=== PATIENT | male | born 1935 | race Caucasian/White ===

== ENCOUNTER → 2017-09-16 12:58 | Outpatient (CLI) | payer MEDICARE, SELFPAY ==
--- NOTE | 2017-09-16 13:02 | PCM.CR.ITP ---
Exercise - Initial Assessment - Visit Date of Eval: 09/16/17 - initial - Stages of Change Stages of Change:: Contemplate - Exercise Prescription Mode:: Treadmill, Biodyne, Rower, Airdyne, NuStep, Arm Ergometer Angina with exercise?: No - Hypertension Do any of the following apply?: Yes Resting Blood Pressure:: 152/90 - Intervention Home Exercise/Activity Goal:: Sitting Time <3 hrs/day - Education Goals:: Warm-up, RPE RUBEN Scale, S/S, Safe Exercise, Self-Monitoring - Exercise Program Goals Exercise Program Goals: Aerobic Activity >30 min, B/P <140/90 Nutrition - Initial Assessment - Program Goals Nutrition Program Goals: LDL <70. Total Cholesterol <200. HDL >45. Triglycerides <150. HgbA1C <7%. BMI <25 - Visit Date of Assessment:: 09/16/17 - Stages of Change Stages of Change:: Contemplate - Diabetes Diabetes:: No - Weight Management Height: 1.75 m Weight:: 83.461 kg Total Score:: 3 - Intervention Referral to dietitian:: No Referral to Diabetic Clinic:: No Will attend diet classes:: Yes - Education Gave educational materials for:: Signs & symptoms of hypoglycemia, Signs & symptoms of hyperglycemia, Relate diabetes to coronary artery disease, Healthy eating Nutrition - 30-Day Assessment - Program Goals Nutrition Program Goals: LDL <70. Total Cholesterol <200. HDL >45. Triglycerides <150. HgbA1C <7%. BMI <25 - Diabetes Diabetes:: No Nutrition - 60-Day Assessment - Program Goals Nutrition Program Goals: LDL <70. Total Cholesterol <200. HDL >45. Triglycerides <150. HgbA1C <7%. BMI <25 - Diabetes Diabetes:: No Nutrition - 90-Day Assessment - Program Goals Nutrition Program Goals: LDL <70. Total Cholesterol <200. HDL >45. Triglycerides <150. HgbA1C <7%. BMI <25 - Diabetes Diabetes:: No Nutrition - Final Assessment - Program Goals Nutrition Program Goals: LDL <70. Total Cholesterol <200. HDL >45. Triglycerides <150. HgbA1C <7%. BMI <25 - Diabetes Diabetes:: No Tobacco - Initial Assessment - Program Goals Tobacco Program Goals: Complete smoking cessation. Attend education classes. Improve Knowledge Test score - Stage of Change Stages of Change:: Contemplate - Learning Barriers Total Score:: 9 - Family Support Do you have family support?: Yes - Tobacco Use Tobacco Use: Non-smoker How long ago did you quit using tobacco products?: Greater than or equal to 6 months ago Do you use smokeless tobacco?: No - Intervention Smoking Cessation Referral:: No Individual Education/Counseling:: No Education Schedule Given:: Yes - Education Gave educational material for:: Tobacco triggers, Coronary artery disease, Risk factors, Sexuality, Medical compliance, Cardiac A&P, Angina signs & symptoms Psychosocial - Initial Assess - Target Goals Target Goals: Assess presence or absence of depression. Using a valid screening tool, maximizes coping skills. Positive support system - Stages of Change Stages of Change:: Contemplate - Psychosocial Test Tool Used:: HANDS Depression Questionnaire Self-reported stress:: none Total Mood Screening Score:: 0 Self-Efficacy Score:: 10 - Intervention PS - Interventions: Yes Attend Stress Management Classes, Yes Uses Stress Management Skills, No Referral to Mental Health, No Referral to [facility] Case Management, No Referral to Physician - Education Gave educational materials for:: Coping techniques, Signs & symptoms of depression, Stress management, Relaxation techniques - Assistive Devices Assistive Devices:: None Patient Health Questionnaire 30-Day Re-eval Assessment 1. Little interest or pleasure in doing things: Not at all 2. Feeling down, depressed, or hopeless: Not at all 3. Trouble falling or staying asleep, or sleeping too much: Not at all 4. Feeling tired or having little energy: Not at all 5. Poor appetite or overeating: Not at all 6. Feeling bad about yourself -- or that you are a failure or have let yourself or your family down: Not at all 7. Trouble concentrating on things, such as reading the newspaper or watching television: Not at all 8. Moving or speaking so slowly that other people could have noticed. Or the opposite - being so fidgety or restless that you have been moving around a lot more than usual: Not at all 9. Thoughts that you would be better off , or of hurting yourself in some way: Not at all How difficult have these problems made it for you to do your work, take care of things at home, or get along with other people?: Not difficult at all Total Score: 0 Knowledge Test - Check your knowledge Initial The #1 cause of in the [place] each year is:: Heart disease Which of the following is a common treatment for heart disease?: All of the above The arteries that feed the heart are called:: Coronary arteries HDL cholesterol is known as the good cholesterol.: True What disease increases your risk for heart disease?: Diabetes What food product raises blood cholesterol level the most?: Saturated fat The bad cholesterol in the blood is called:: LDL Hypertension is another word for:: High blood pressure A blood pressure reading of 148/88 is considered normal.: False Exercise will only benefit your health when your heart rate reaches a target level.: True Total Score:: 9 Self-Efficacy 30-Day Re-eval Assessment We would like to know how confident you are in doing certain activities. Please select your confidence level for:: Select your confidence level for the following using the scale 1-10 where 1 is not at all confident and 10 is totally confident. Your score is the average of all 6 responses. Fatigue: How confident are you that you can keep the fatigue caused by your disease from interfering with the things you want to do? Select Number: 10 Physical Discomfort or Pain: How confident are you that you can keep the physical discomfort or pain of your disease from interfering with the things you want to do? Select Number: 10 Emotional Distress: How confident are you that you can keep the emotional distress caused by your disease from interfering with the things you want to do? Select Number: 10 Other Symptoms or Health Problems: How confident are you that you can keep other symptoms or health problems from interfering with the things you want to do? Select Number: 10 Different Tasks and Activities: How confident are you that you can do the different tasks and activities needed to manage your health condition so as to reduce your need to see a doctor? Select Number: 10 Medication: How confident are you that you can do things other than just taking medication to reduce how much your illness affects your everyday life? Select Number: 10 Total Score:: 10 Nutrition Survey - Nutrition Survey Instructions Scoring Instructions: Scoring is as follows: Yes = 1 points. No = 0 point. Patient score that is >/=12 is considered to be at potential nutritional risk and could benefit from a referral to a registered dietitian. - Nutrition Survey Initial Have you lost >10 lbs over the past 2 months without trying?: Yes Are you following a special diet at home for diabetes, low fat, or low salt?: Yes Are you interested in meeting with a dietitian for help understanding your diet?: Yes Do you eat less than 3 meals a day?: No Do you eat fatty meats (saeed, sausage, ribs, etc), fried foods, desserts, large amounts of salad dressings, margarine, butter, or cheese most days?: No Do you have food allergies? [Enter types in comment field]: No Do you eat in restaurants more than 3 times a week?: No Do you season food with salt, seasoning salt, or garlic salt?: No Do you used canned, boxed, frozen meals, or soups, seasoning packets?: No Total Score:: 3 Cardiac Rehabilitation Goals - Cardiac Rehab Goals Cardiac Rehabilitation Goals: 1. Maintain the individual as the primary focus of care. 2. To improve the patient's quality of life. 3. Identification of cardiac risk factors and provide cardiac risk factor management. 4. Enhance the psychosocial status of the patient. 5. Reconditioning enough to allow the patient to resume customary activities. 6. Control symptoms of cardiac disease - Scale Scale for measuring improvement of personal goals: Enter appropriate number in Comments. 2 = Unchanged. 3 = Slightly Better. 4 = Moderate Improvement. 5 = Met my Goal 30-Day Re-eval Assessment Personal Goals: 30-day Re-assessment: Improve management of stress and emotions, Improve energy level, Participate in home exercise program, Get back to work, or to resume activities faster, Improve knowledge of cardiac disease, Improve muscle strength and endurance, Improve diet and eating habits (eat healthier), Control risk factors (learn risk factor modification)
--- NOTE | 2017-09-16 13:03 | PCM.CR.HP2 ---
CR - History & Physical - General Arrival date:: 09/16/17 Arrival time:: 13:03 Referring Physician: Dr. Jose Ibarra Primary Diagnosis: Z95.5, I25.10 07/04/2017, 08/01/2017 - History of Present Cardiac Event Onset Date: Enter Onset Date of cardiac illnesses in Comment field below PTCA:: Yes Pacemaker/ICD: Yes Type of Symptoms:: SOB - Medications Home Medications: Ambulatory Orders Medication Instructions Recorded Aspirin [Aspirin, Baby] 81 mg PO DAILY@0800 06/30/17 Cholecalciferol (Vitamin D3) 2,000 unit PO DAILY 06/30/17 [Vitamin D3] Multivitamin,Therapeutic [Thera] 1 ea PO DAILY 06/30/17 meloxicam 7.5 mg tablet 7.5 mg PO QDAY 07/09/17 nitroglycerin 0.4 mg sublingual 0.4 mg SUBLINGUAL Q5-15M PRN 07/09/17 tablet Handicap Plaquard #1 ea 07/10/17 Handicap Plaquard #1 ea 07/10/17 clopidogrel 75 mg tablet 75 mg PO QDAY #30 tab 07/12/17 folic acid 1 mg tablet 1 mg PO QDAY #30 tab 07/12/17 losartan 50 mg tablet 50 mg PO QDAY #30 tab 07/12/17 metoprolol succinate ER 50 mg 150 mg PO QDAY #90 tab 07/12/17 tablet,extended release 24 hr - Allergies Allergies/Adverse Reactions: Allergies quinapril Allergy (Verified 09/05/17 10:45) Angioedema Suoaixp-Sub-Pgb Reductase Inhibitor Allergy (Verified 09/05/17 10:45) Hives and myalgias - Sleep Disorder Evaluation Hx of Sleep Apnea: No Do you snore loudly (louder than talking or can be heard through closed doors)?: Yes - declines for now Do you often feel tired/ fatigued/ sleepy during daytime?: No Has anyone observed you stop breathing during sleep?: No History of Hypertension (for STOP score): Yes STOP Results: Positive Advanced Directives - Advanced Directives Power of Unattended Ground Sensor Specialist: Yes Living Will: Yes Advance Directives Information Provided: Yes Advance Directives on File: No DNR Order?:: No Past Medical History - Problems and Co-Morbidities Problems & Co-Morbidities: Smoking - reformed, Dyslipidemia, Hypertension - Past Cardiac Illness Past Cardiac Illness: Myocardial Infarction - Cardiology Procedures/Interventions Cardiology Procedures/Interventions: Angioplasty, PCI w/Stenting, Other Procedures - ICD placement - Past Surgical History Surgical History: - - Carpal tunnel surgery. Shoulder and knee arthroscopic surgery. Review of Systems - Review of Systems Hints: Right click = Denies (Slash). Left click = Reports ([place]) Review of Present Symptoms: Reports: Shortness of Breath at Rest, Shortness of Breath with Exertion, Appetite - Normal, Sleep - Normal. Denies: PVD, Operative Discomfort, Angina, Wound Healing, Dizziness/Lightheadedness, Fatigue, Heart Arrhythmia/Irregularities, Appetite - Special Diet, Sexual Changes Risk Factor Assessment - Chief Complaint Chief Complaint: SOB - Pulse Pulse Rate: 68 - 97% SPO2 Pulse Rhythm: Regular - Hypertension How long have you been treated?: 20 Blood Pressure Sitting - Left Arm: 152/90 - Diabetes Nutrition Referral for Diabetes: No - Obesity Height: 1.75 m Weight:: 83.461 kg Weight in Pounds: 184.0 lbs Body Mass Index (BMI): 27.1 Nutritional Referral for Obesity: No - Risk Stratification Risk Guidelines: Lowest Risk: Risk Factor for Sedentary Lifestyle, Risk Factor for Depression, Moderate Risk: Risk Factor for Smoking, Risk Factor for Dyslipidemia, Risk Factor for Diabetes, Risk Factor for Obesity, Risk Factor for Hypertension - For Smoking Smoking Risk Guidelines: Smoking Low Risk: None or quit greater than 6 months ago. Smoking Moderate Risk: Smoker or quit 6 months or less ago. Smoking High Risk: Smoker - For Dyslipidemia Dyslipidemia Risk Guidelines: Low Risk: Moderate Risk: High Risk: 15-25% fat 25.1-29% fat >/= 30% fat. <7% sat fat 7-9% sat fat >9% sat fat. <150 mg chol 150-299 mg chol >/= 300 mg chol. LDL <100 LDL 100-129 LDL >/= 130. Chol/HDL ratio <5.0 Chol/HDL ratio 5.0-6.0 Chol/HDL ratio >6.0. Triglycerides <100 Triglycerides 100-149 Triglycerides >/= 150 - For Diabetes Mellitus Diabetes Risk Guidelines: Diabetes Low Risk: HgA1c <6.5% and/or FBG <120. Diabetes Moderate Risk: HgA1c 6.6-7.9% and/or FBG 120-180. Diabetes High Risk: HgA1c >/= 8% and/or FBG >180 - For Obesity/Overweight Obesity/Overweight Risk Guidelines: Obesity Low Risk: BMI <25.0. Obesity Moderate Risk: BMI 25-29.9. Obesity High Risk: BMI >/= 30.0 - For Hypertension Hypertension Risk Guidelines: Hypertension Low Risk: Systolic <120 and Diastolic <80. Hypertension Moderate Risk: Systolic 120-139 and Diastolic 80-89. Hypertension High Risk: Systolic >/= 140 and Diastolic >/= 90 - For Sedentary Lifestyle Sedentary Lifestyle Risk Guidelines: Sedentary Lifestyle Low Risk: >/= 1,500 kcal/week. Sedentary Lifestyle Moderate Risk: 700-1,499 kcal/week. Sedentary Lifestyle High Risk: < 700 kcal/week - For Depression Depression Risk Guidelines: Depression Low Risk: Not clinically depressed. Depression Moderate Risk: Mildly depressed. Depression High Risk: Clinically depressed Social History - Smoking History Smoking Status: Former smoker Years Smokin Packs Smoked per Day: 1 Hx Smoking Cessation Date: 1987 Hx Tobacco Use: Yes Hx Smoking Exposure: Yes - Alcohol Use Alcohol Usage: No - Substance Abuse Hx Substance Use: No - Occupation Occupation (List type of work in comments):: Retired - Hobbies, Recreation, Social Activities Hobbies: Other - golf, painting, billiards,fishing Recreational Activities: I am able to engage in all my recreational activities Marital Status - Status Marital Status: - Current Living Arrangements Living Environment:: Spouse - Children Do any of your children live nearby?: Yes - Safety Do you feel safe in your surroundings?: Yes - Assistance Do you need any assistance at home?: none
--- NOTE | 2017-09-16 13:14 | CR.HP_ITS ---
CR - History & Physical - General Arrival date:: 09/16/17 Arrival time:: 13:03 Referring Physician: Dr. Jose Ibarra Primary Diagnosis: Z95.5, I25.10 07/04/2017, 08/01/2017 - History of Present Cardiac Event Onset Date: Enter Onset Date of cardiac illnesses in Comment field below PTCA:: Yes Pacemaker/ICD: Yes Type of Symptoms:: SOB - Medications Home Medications: Ambulatory Orders Medication Instructions Recorded Aspirin [Aspirin, Baby] 81 mg PO DAILY@0800 06/30/17 Cholecalciferol (Vitamin D3) 2,000 unit PO DAILY 06/30/17 [Vitamin D3] Multivitamin,Therapeutic [Thera] 1 ea PO DAILY 06/30/17 meloxicam 7.5 mg tablet 7.5 mg PO QDAY 07/09/17 nitroglycerin 0.4 mg sublingual 0.4 mg SUBLINGUAL Q5-15M PRN 07/09/17 tablet Handicap Plaquard #1 ea 07/10/17 Handicap Plaquard #1 ea 07/10/17 clopidogrel 75 mg tablet 75 mg PO QDAY #30 tab 07/12/17 folic acid 1 mg tablet 1 mg PO QDAY #30 tab 07/12/17 losartan 50 mg tablet 50 mg PO QDAY #30 tab 07/12/17 metoprolol succinate ER 50 mg 150 mg PO QDAY #90 tab 07/12/17 tablet,extended release 24 hr - Allergies Allergies/Adverse Reactions: Allergies quinapril Allergy (Verified 09/05/17 10:45) Angioedema Auymegr-Uce-Moi Reductase Inhibitor Allergy (Verified 09/05/17 10:45) Hives and myalgias - Sleep Disorder Evaluation Hx of Sleep Apnea: No Do you snore loudly (louder than talking or can be heard through closed doors)? : Yes - declines for now Do you often feel tired/ fatigued/ sleepy during daytime?: No Has anyone observed you stop breathing during sleep?: No History of Hypertension (for STOP score): Yes STOP Results: Positive Advanced Directives - Advanced Directives Power of Experimental Psychologist: Yes Living Will: Yes Advance Directives Information Provided: Yes Advance Directives on File: No DNR Order?:: No Past Medical History - Problems and Co-Morbidities Problems & Co-Morbidities: Smoking - reformed, Dyslipidemia, Hypertension - Past Cardiac Illness Past Cardiac Illness: Myocardial Infarction - Cardiology Procedures/Interventions Cardiology Procedures/Interventions: Angioplasty, PCI w/Stenting, Other Procedures - ICD placement - Past Surgical History Surgical History: - - Carpal tunnel surgery. Shoulder and knee arthroscopic surgery. Review of Systems - Review of Systems Hints: Right click = Denies ([place]ash). Left click = Reports ([place]) Review of Present Symptoms: Reports: Shortness of Breath at Rest, Shortness of Breath with Exertion, Appetite - Normal, Sleep - Normal. Denies: PVD, Operative Discomfort, Angina, Wound Healing, Dizziness/Lightheadedness, Fatigue , Heart Arrhythmia/Irregularities, Appetite - Special Diet, Sexual Changes Risk Factor Assessment - Chief Complaint Chief Complaint: SOB - Pulse Pulse Rate: 68 - 97% SPO2 Pulse Rhythm: Regular - Hypertension How long have you been treated?: 20 Blood Pressure Sitting - Left Arm: 152/90 - Diabetes Nutrition Referral for Diabetes: No - Obesity Height: 1.75 m Weight:: 83.461 kg Weight in Pounds: 184.0 lbs Body Mass Index (BMI): 27.1 Nutritional Referral for Obesity: No - Risk Stratification Risk Guidelines: Lowest Risk: Risk Factor for Sedentary Lifestyle, Risk Factor for Depression, Moderate Risk: Risk Factor for Smoking, Risk Factor for Dyslipidemia, Risk Factor for Diabetes, Risk Factor for Obesity, Risk Factor for Hypertension - For Smoking Smoking Risk Guidelines: Smoking Low Risk: None or quit greater than 6 months ago. Smoking Moderate Risk: Smoker or quit 6 months or less ago. Smoking High Risk: Smoker - For Dyslipidemia Dyslipidemia Risk Guidelines: Low Risk: Moderate Risk: High Risk: 15-25% fat 25.1-29% fat >/= 30% fat. <7% sat fat 7-9% sat fat >9% sat fat. <150 mg chol 150-299 mg chol >/= 300 mg chol. LDL <100 LDL 100-129 LDL >/= 130. Chol/HDL ratio <5.0 Chol/HDL ratio 5.0-6.0 Chol/HDL ratio >6.0. Triglycerides <100 Triglycerides 100-149 Triglycerides >/= 150 - For Diabetes Mellitus Diabetes Risk Guidelines: Diabetes Low Risk: HgA1c <6.5% and/or FBG <120. Diabetes Moderate Risk: HgA1c 6.6-7.9% and/or FBG 120-180. Diabetes High Risk: HgA1c >/= 8% and/or FBG >180 - For Obesity/Overweight Obesity/Overweight Risk Guidelines: Obesity Low Risk: BMI <25.0. Obesity Moderate Risk: BMI 25-29.9. Obesity High Risk: BMI >/= 30.0 - For Hypertension Hypertension Risk Guidelines: Hypertension Low Risk: Systolic <120 and Diastolic <80. Hypertension Moderate Risk: Systolic 120-139 and Diastolic 80-89. Hypertension High Risk: Systolic >/= 140 and Diastolic >/= 90 - For Sedentary Lifestyle Sedentary Lifestyle Risk Guidelines: Sedentary Lifestyle Low Risk: >/= 1 ,500 kcal/week. Sedentary Lifestyle Moderate Risk: 700-1,499 kcal/week. Sedentary Lifestyle High Risk: < 700 kcal/week - For Depression Depression Risk Guidelines: Depression Low Risk: Not clinically depressed. Depression Moderate Risk: Mildly depressed. Depression High Risk: Clinically depressed Social History - Smoking History Smoking Status: Former smoker Years Smokin Packs Smoked per Day: 1 Hx Smoking Cessation Date: 1987 Hx Tobacco Use: Yes Hx Smoking Exposure: Yes - Alcohol Use Alcohol Usage: No - Substance Abuse Hx Substance Use: No - Occupation Occupation (List type of work in comments):: Retired - Hobbies, Recreation, Social Activities Hobbies: Other - golf, painting, billiards,fishing Recreational Activities: I am able to engage in all my recreational activities Marital Status - Status Marital Status: - Current Living Arrangements Living Environment:: Spouse - Children Do any of your children live nearby?: Yes - Safety Do you feel safe in your surroundings?: Yes - Assistance Do you need any assistance at home?: none
[2017-09-16 14:08] VITALS: BP 152/90
[2017-09-16 14:09] VITALS: BP 152/90; PULSE 68; BMI 27.1
== END ==
PROVIDERS: Family Provider Internal Medicine; PCP Internal Medicine; Visit Provider Internal Medicine Cardiovascular Disease
DX: I25.10 Atherosclerotic heart disease of native coronary artery without angina pectoris (principal); I25.5 Ischemic cardiomyopathy; Z95.5 Presence of coronary angioplasty implant and graft

== ENCOUNTER 2017-09-27 10:15 | Outpatient (RCR) | payer MEDICARE, SELFPAY | END 2017-09-28 23:59 | LOC: CR 10:15 | PROVIDERS: Family Provider Internal Medicine; PCP Internal Medicine; Visit Provider Internal Medicine Cardiovascular Disease | DX: I25.10 Atherosclerotic heart disease of native coronary artery without angina pectoris (principal); Z95.5 Presence of coronary angioplasty implant and graft | CPT/HCPCS: 93798 ==

== ENCOUNTER 2017-10-28 10:15 | Outpatient (RCR) | payer MEDICARE, SELFPAY ==
[2017-10-21 11:25] VITALS: BP 144/84; BP 160/100
--- NOTE | 2017-10-21 11:26 | CR.ITP_ITS ---
General Information - General Information Admitting Diagnosis: PCI S/P coronary stent placemnet - Education/Goals Barriers to Learning: Hearing Impairment Individual Counselin-Day Assessment: Abnormal Cholesterol Levels, High Blood Pressure Cardiac Rehabilitation Goals: 1. Maintain the individual as the primary focus of care. 2. To improve the patient's quality of life. 3. Identification of cardiac risk factors and provide cardiac risk factor management. 4. Enhance the psychosocial status of the patient. 5. Reconditioning enough to allow the patient to resume customary activities. 6. Control symptoms of cardiac disease Scale for measuring improvement of personal goals: Enter appropriate number in Comments. 2 = Unchanged. 3 = Slightly Better. 4 = Moderate Improvement. 5 = Met my Goal Personal Goals: 30-day Re-assessment: Improve energy level, Participate in home exercise program, Get back to work, or to resume activities faster, Improve muscle strength and endurance Exercise - 30-day Assessment - Visit Date of Eval: 10/21/17 Session #:: 10 - Stages of Change Stages of Change:: Action - Exercise Prescription Mode:: Treadmill, Airdyne, NuStep Frequency (x/week): 3 Duration:: 30 METs - Progression: 0.5-1 MET as tolerated: 3 Target Heart Rate:: 89-100 - Hypertension Resting Blood Pressure:: 144/84 Peak Exercise Blood Pressure:: 160/100 Medication Changes:: No - Intervention Home Exercise/Activity Goal:: Sitting Time <3 hrs/day - Education Goals:: Warm-up, RPE RUBEN Scale, S/S, Safe Exercise, Self-Monitoring - Exercise Program Goals Exercise Program Goals: Aerobic Activity >30 min, B/P <140/90 Nutrition - 30-Day Assessment - Program Goals Nutrition Program Goals: LDL <70. Total Cholesterol <200. HDL >45. Triglycerides <150. HgbA1C <7%. BMI <25 - Visit Date of Eval: 10/21/17 - Stages of Change Stages of Change:: Action - Lipids Has the patient seen the dietitian?: No - Diabetes Diabetes:: No - Weight Management Weight:: 84.822 kg - Intervention Referral to dietitian:: No Referral to Diabetic Clinic:: No Will attend diet classes:: Yes - Education Attended class for:: Signs & symptoms of hypoglycemia, Signs & symptoms of hyperglycemia, Relate diabetes to coronary artery disease, Healthy eating Tobacco - 30-Day Assessment - Program Goals Tobacco Program Goals: Complete smoking cessation. Attend education classes. Improve Knowledge Test score - Stage of Change Stages of Change:: Action - Learning Barriers Learning Barriers: Participates in education - Family Support Do you have family support?: Yes - Tobacco Use Tobacco Use: Non-smoker Do you use smokeless tobacco?: No - Intervention Smoking Cessation Referral:: No Individual Education/Counseling:: No Education Schedule Given:: Yes - Education Attended class for:: Tobacco triggers, Coronary artery disease, Risk factors, Sexuality, Medical compliance, Cardiac A&P, Angina signs & symptoms Psychosocial - 30-Day Assess - Target Goals Target Goals: Assess presence or absence of depression. Using a valid screening tool, maximizes coping skills. Positive support system - Stages of Change Stages of Change:: Action - Psychosocial Test Tool Used:: HANDS Depression Questionnaire - Intervention PS - Interventions: Yes Attend Stress Management Classes, Yes Uses Stress Management Skills, No Referral to Mental Health, No Referral to [facility] Case Management, No Referral to Physician - Education Attended classes for:: Coping techniques, Signs & symptoms of depression, Stress management, Relaxation techniques - Assistive Devices Assistive Devices:: None Fall Risk Assessed:: Yes Patient Health Questionnaire 30-Day Re-eval Assessment 1. Little interest or pleasure in doing things: Not at all 2. Feeling down, depressed, or hopeless: Not at all 3. Trouble falling or staying asleep, or sleeping too much: Not at all 4. Feeling tired or having little energy: Not at all 5. Poor appetite or overeating: Not at all 6. Feeling bad about yourself -- or that you are a failure or have let yourself or your family down: Not at all 7. Trouble concentrating on things, such as reading the newspaper or watching television: Not at all 8. Moving or speaking so slowly that other people could have noticed. Or the opposite - being so fidgety or restless that you have been moving around a lot more than usual: Not at all 9. Thoughts that you would be better off , or of hurting yourself in some way: Not at all How difficult have these problems made it for you to do your work, take care of things at home, or get along with other people?: Not difficult at all Total Score: 0 Self-Efficacy 30-Day Re-eval Assessment We would like to know how confident you are in doing certain activities. Please select your confidence level for:: Select your confidence level for the following using the scale 1-10 where 1 is not at all confident and 10 is totally confident. Your score is the average of all 6 responses. Fatigue: How confident are you that you can keep the fatigue caused by your disease from interfering with the things you want to do? Select Number: 10 Physical Discomfort or Pain: How confident are you that you can keep the physical discomfort or pain of your disease from interfering with the things you want to do? Select Number: 10 Emotional Distress: How confident are you that you can keep the emotional distress caused by your disease from interfering with the things you want to do? Select Number: 10 Other Symptoms or Health Problems: How confident are you that you can keep other symptoms or health problems from interfering with the things you want to do? Select Number: 10 Different Tasks and Activities: How confident are you that you can do the different tasks and activities needed to manage your health condition so as to reduce your need to see a doctor? Select Number: 10 Medication: How confident are you that you can do things other than just taking medication to reduce how much your illness affects your everyday life? Select Number: 10 Total Score:: 10
== END 2017-10-28 23:59 ==
LOC: CR 10:15
PROVIDERS: Family Provider Internal Medicine; PCP Internal Medicine; Visit Provider Internal Medicine Cardiovascular Disease
DX: I25.10 Atherosclerotic heart disease of native coronary artery without angina pectoris (principal); Z95.5 Presence of coronary angioplasty implant and graft
CPT/HCPCS: 93798

== ENCOUNTER 2017-11-27 10:15 | Outpatient (RCR) | payer MEDICARE, SELFPAY ==
[2017-10-29 00:58] VITALS: BP 144/84; BP 160/100
--- NOTE | 2017-11-20 08:26 | PCM.CR.ITP ---
Exercise - 90-Day Assessment - Visit Date of Eval: 11/20/17 Session #:: 23 - Stages of Change Stages of Change:: Contemplate - Exercise Prescription Mode:: Treadmill, Biodyne, Rower, Airdyne, NuStep, Arm Ergometer Frequency (x/week): 3 Duration:: 30 METs: 4.5 114% increase Target Heart Rate:: 112-120 Max 121 - Hypertension Resting Blood Pressure:: 120/80 Peak Exercise Blood Pressure:: 160/84 Medication Changes:: No - Intervention Home Exercise/Activity Goal:: Sitting Time <3 hrs/day - Education Goals:: Warm-up, RPE RUBEN Scale, S/S, Safe Exercise, Self-Monitoring Nutrition - 90-Day Assessment - Program Goals Nutrition Program Goals: LDL <70. Total Cholesterol <200. HDL >45. Triglycerides <150. HgbA1C <7%. BMI <25 - Stages of Change Stages of Change:: Contemplate - Lipids Has the patient seen the dietitian?: No - Diabetes Diabetes:: No - Weight Management Weight:: 84.595 kg - Intervention Referral to dietitian:: No Referral to Diabetic Clinic:: No Will attend diet classes:: Yes - Education Attended class for:: Signs & symptoms of hypoglycemia, Signs & symptoms of hyperglycemia, Relate diabetes to coronary artery disease, Healthy eating Tobacco - 90-Day Assessment - Program Goals Tobacco Program Goals: Complete smoking cessation. Attend education classes. Improve Knowledge Test score - Stage of Change Stages of Change:: Contemplate - Learning Barriers Learning Barriers: Participates in education - Family Support Do you have family support?: Yes - Tobacco Use Tobacco Use: Non-smoker Do you use smokeless tobacco?: No - Intervention Smoking Cessation Referral:: No Individual Education/Counseling:: No Education Schedule Given:: Yes - Education Attended class for:: Tobacco triggers, Coronary artery disease, Risk factors, Sexuality, Medical compliance, Cardiac A&P, Angina signs & symptoms Psychosocial - Initial Assess - Target Goals Target Goals: Assess presence or absence of depression. Using a valid screening tool, maximizes coping skills. Positive support system - Psychosocial Test Tool Used:: HANDS Depression Questionnaire - Assistive Devices Fall Risk Assessed:: Yes Psychosocial - 90-Day Assess - Target Goals Target Goals: Assess presence or absence of depression. Using a valid screening tool, maximizes coping skills. Positive support system - Stages of Change Stages of Change:: Contemplate - Psychosocial Test Tool Used:: HANDS Depression Questionnaire - Intervention PS - Interventions: Yes Attend Stress Management Classes, Yes Uses Stress Management Skills, No Referral to Mental Health, No Referral to [facility] Case Management, No Referral to Physician - Education Attended classes for:: Coping techniques, Signs & symptoms of depression, Stress management, Relaxation techniques - Assistive Devices Assistive Devices:: None Fall Risk Assessed:: Yes Patient Health Questionnaire 90-Day Re-eval Assessment 1. Little interest or pleasure in doing things: Not at all 2. Feeling down, depressed, or hopeless: Not at all 3. Trouble falling or staying asleep, or sleeping too much: Not at all 4. Feeling tired or having little energy: Not at all 5. Poor appetite or overeating: Not at all 6. Feeling bad about yourself -- or that you are a failure or have let yourself or your family down: Not at all 7. Trouble concentrating on things, such as reading the newspaper or watching television: Not at all 8. Moving or speaking so slowly that other people could have noticed. Or the opposite - being so fidgety or restless that you have been moving around a lot more than usual: Not at all 9. Thoughts that you would be better off , or of hurting yourself in some way: Not at all How difficult have these problems made it for you to do your work, take care of things at home, or get along with other people?: Not difficult at all Total Score: 0 Self-Efficacy 90-Day Re-eval Assessment We would like to know how confident you are in doing certain activities. Please select your confidence level for:: Select your confidence level for the following using the scale 1-10 where 1 is not at all confident and 10 is totally confident. Your score is the average of all 6 responses. Fatigue: How confident are you that you can keep the fatigue caused by your disease from interfering with the things you want to do? Select Number: 10 Physical Discomfort or Pain: How confident are you that you can keep the physical discomfort or pain of your disease from interfering with the things you want to do? Select Number: 10 Emotional Distress: How confident are you that you can keep the emotional distress caused by your disease from interfering with the things you want to do? Select Number: 10 Other Symptoms or Health Problems: How confident are you that you can keep other symptoms or health problems from interfering with the things you want to do? Select Number: 10 Different Tasks and Activities: How confident are you that you can do the different tasks and activities needed to manage your health condition so as to reduce your need to see a doctor? Select Number: 10 Medication: How confident are you that you can do things other than just taking medication to reduce how much your illness affects your everyday life? Select Number: 10 Total Score:: 10
[2017-11-20 08:42] VITALS: BP 120/80; BP 160/84
== END 2017-11-28 23:59 ==
LOC: CR 10:15
PROVIDERS: Family Provider Internal Medicine; PCP Internal Medicine; Visit Provider Internal Medicine Cardiovascular Disease
DX: I25.10 Atherosclerotic heart disease of native coronary artery without angina pectoris (principal); Z95.5 Presence of coronary angioplasty implant and graft
CPT/HCPCS: 93798

== ENCOUNTER 2017-12-27 10:15 | Outpatient (RCR) | payer MEDICARE, SELFPAY ==
[2017-11-29 00:50] VITALS: BP 120/80; BP 160/84
--- NOTE | 2017-12-20 12:57 | PCM.CR.ITP ---
Exercise - 90-Day Assessment - Visit Date of Eval: 12/20/17 Session #:: 31 - Stages of Change Stages of Change:: Action - Exercise Prescription Mode:: Treadmill, Rower, Airdyne, NuStep Frequency (x/week): 3 Duration:: 30 METs: 5.5 Target Heart Rate:: 112-118 - Hypertension Resting Blood Pressure:: 150/80 Peak Exercise Blood Pressure:: 158/84 Medication Changes:: No - Intervention Home Exercise/Activity Goal:: Moderate Exercise 30 min/day x 5 days/wk - Education Goals:: Warm-up, RPE RUBEN Scale, S/S, Safe Exercise, Self-Monitoring - Exercise Program Goals Exercise Program Goals: Aerobic Activity >30 min Nutrition - 90-Day Assessment - Program Goals Nutrition Program Goals: LDL <70. Total Cholesterol <200. HDL >45. Triglycerides <150. HgbA1C <7%. BMI <25 - Visit Date of Eval: 12/20/17 - Stages of Change Stages of Change:: Action - Lipids Has the patient seen the dietitian?: No - Weight Management Weight:: 186 lb - Intervention Referral to dietitian:: No Referral to Diabetic Clinic:: No Will attend diet classes:: Yes - Education Attended class for:: Healthy eating Tobacco - 90-Day Assessment - Program Goals Tobacco Program Goals: Complete smoking cessation. Attend education classes. Improve Knowledge Test score - Stage of Change Stages of Change:: Action - Learning Barriers Learning Barriers: Participates in education - Family Support Do you have family support?: Yes - Tobacco Use Tobacco Use: Non-smoker - Intervention Education Schedule Given:: Yes - Education Attended class for:: Tobacco triggers, Coronary artery disease, Risk factors, Sexuality, Medical compliance, Cardiac A&P, Angina signs & symptoms Psychosocial - Initial Assess - Target Goals Target Goals: Assess presence or absence of depression. Using a valid screening tool, maximizes coping skills. Positive support system - Psychosocial Test Tool Used:: HANDS Depression Questionnaire - Assistive Devices Fall Risk Assessed:: Yes Psychosocial - 90-Day Assess - Target Goals Target Goals: Assess presence or absence of depression. Using a valid screening tool, maximizes coping skills. Positive support system - Stages of Change Stages of Change:: Action - Psychosocial Test Tool Used:: HANDS Depression Questionnaire - Intervention PS - Interventions: Yes Attend Stress Management Classes, Yes Uses Stress Management Skills - Education Attended classes for:: Coping techniques, Signs & symptoms of depression, Stress management, Relaxation techniques - Patient/Program Goal Preventative Medication(s):: Aspirin, Clopidogrel, Beta efra, Statin/lipid - Assistive Devices Assistive Devices:: None Fall Risk Assessed:: Yes Patient Health Questionnaire 90-Day Re-eval Assessment 1. Little interest or pleasure in doing things: Not at all 2. Feeling down, depressed, or hopeless: Not at all 3. Trouble falling or staying asleep, or sleeping too much: Not at all 4. Feeling tired or having little energy: Not at all 5. Poor appetite or overeating: Not at all 6. Feeling bad about yourself -- or that you are a failure or have let yourself or your family down: Not at all 7. Trouble concentrating on things, such as reading the newspaper or watching television: Not at all 8. Moving or speaking so slowly that other people could have noticed. Or the opposite - being so fidgety or restless that you have been moving around a lot more than usual: Not at all 9. Thoughts that you would be better off , or of hurting yourself in some way: Not at all How difficult have these problems made it for you to do your work, take care of things at home, or get along with other people?: Not difficult at all Total Score: 0 Self-Efficacy 90-Day Re-eval Assessment We would like to know how confident you are in doing certain activities. Please select your confidence level for:: Select your confidence level for the following using the scale 1-10 where 1 is not at all confident and 10 is totally confident. Your score is the average of all 6 responses. Fatigue: How confident are you that you can keep the fatigue caused by your disease from interfering with the things you want to do? Select Number: 10 Physical Discomfort or Pain: How confident are you that you can keep the physical discomfort or pain of your disease from interfering with the things you want to do? Select Number: 10 Emotional Distress: How confident are you that you can keep the emotional distress caused by your disease from interfering with the things you want to do? Select Number: 10 Other Symptoms or Health Problems: How confident are you that you can keep other symptoms or health problems from interfering with the things you want to do? Select Number: 10 Different Tasks and Activities: How confident are you that you can do the different tasks and activities needed to manage your health condition so as to reduce your need to see a doctor? Select Number: 10 Medication: How confident are you that you can do things other than just taking medication to reduce how much your illness affects your everyday life? Select Number: 10 Total Score:: 10
[2017-12-20 13:04] VITALS: BP 150/80; BP 158/84
== END 2017-12-28 23:59 ==
LOC: CR 10:15
PROVIDERS: Family Provider Internal Medicine; PCP Internal Medicine; Visit Provider Internal Medicine Cardiovascular Disease
DX: I25.10 Atherosclerotic heart disease of native coronary artery without angina pectoris (principal); Z95.5 Presence of coronary angioplasty implant and graft
CPT/HCPCS: 93798

== ENCOUNTER 2018-01-03 10:15 | Outpatient (RCR) | payer MEDICARE, SELFPAY ==
[2017-12-29 00:44] VITALS: BP 150/80; BP 158/84
--- NOTE | 2018-01-21 12:30 | PCM.CR.ITP ---
General Information - Education/Goals Cardiac Rehabilitation Goals: 1. Maintain the individual as the primary focus of care. 2. To improve the patient's quality of life. 3. Identification of cardiac risk factors and provide cardiac risk factor management. 4. Enhance the psychosocial status of the patient. 5. Reconditioning enough to allow the patient to resume customary activities. 6. Control symptoms of cardiac disease Scale for measuring improvement of personal goals: Enter appropriate number in Comments. 2 = Unchanged. 3 = Slightly Better. 4 = Moderate Improvement. 5 = Met my Goal Personal Goals: Discharge Reassessment: Improve management of stress and emotions - goal met, Improve energy level - goal met, Participate in home exercise program - gaol met, Improve knowledge of cardiac disease - goal met, Improve muscle strength and endurance - goal met, Control risk factors (learn risk factor modification) - goal met Exercise - Final/Discharge - Visit Date of Eval: 01/21/18 - Patient graduated 01/03/2018 Session #:: 36 - Stages of Change Stages of Change:: Action - Exercise Prescription Mode:: Treadmill, Rower, Airdyne, NuStep Frequency (x/week): 3 Duration:: 30 METs: 5.5 increased from intitial 2.5 MET level Target Heart Rate:: 112-118 - Hypertension Do any of the following apply?: Yes Resting Blood Pressure:: 150/90 - patient requires further BP management to reach optimal BP control. Peak Exercise Blood Pressure:: 158/80 - Intervention Home Exercise/Activity Goal:: Moderate Exercise 30 min/day x 5 days/wk - Education Goal Progress: Goal Met - Exercise Program Goals Exercise Program Goals: Aerobic Activity >30 min Nutrition - Final Assessment - Program Goals Nutrition Program Goals: LDL <70. Total Cholesterol <200. HDL >45. Triglycerides <150. HgbA1C <7%. BMI <25 - Visit Date of Eval: 01/21/18 - Stages of Change Stages of Change:: Action - Diabetes Diabetes:: No Insulin: No Non-Insulin Dependent?: No - Weight Management Height: 5 ft 9 in Weight:: 187 lb Body Fat %:: 27.1 - Intervention Referral to dietitian:: No Referral to Diabetic Clinic:: No Will attend diet classes:: Yes - Education Education Goal Reached?: Yes Tobacco - Final Assessment - Program Goals Tobacco Program Goals: Complete smoking cessation. Attend education classes. Improve Knowledge Test score - Stage of Change Stages of Change:: Action - Learning Barriers Cardiac Knowledge Test Score:: 15 - Family Support Do you have family support?: Yes - Tobacco Use Tobacco Use: Non-smoker Do you use smokeless tobacco?: No - Intervention Smoking Cessation Referral:: No Individual Education/Counseling:: No Education Schedule Given:: Yes - Education Education Goal Reached?: Yes Psychosocial - Final Assessmen - Target Goals Target Goals: Assess presence or absence of depression. Using a valid screening tool, maximizes coping skills. Positive support system - Stages of Change Stages of Change:: Action - Psychosocial Test Tool Used:: HANDS Depression Questionnaire - Intervention PS - Interventions: Yes Attend Stress Management Classes, Yes Uses Stress Management Skills, No Referral to Mental Health, No Referral to [facility] Case Management, No Referral to Physician - Education Education Goal Reached?: Yes - Patient/Program Goal Preventative Medication(s):: Aspirin, Clopidogrel, Beta efra, Statin/lipid - Assistive Devices Assistive Devices:: None Fall Risk Assessed:: Yes Patient Health Questionnaire Discharge Assessment 1. Little interest or pleasure in doing things: Not at all 2. Feeling down, depressed, or hopeless: Not at all 3. Trouble falling or staying asleep, or sleeping too much: Not at all 4. Feeling tired or having little energy: Not at all 5. Poor appetite or overeating: Not at all 6. Feeling bad about yourself -- or that you are a failure or have let yourself or your family down: Not at all 7. Trouble concentrating on things, such as reading the newspaper or watching television: Not at all 8. Moving or speaking so slowly that other people could have noticed. Or the opposite - being so fidgety or restless that you have been moving around a lot more than usual: Not at all 9. Thoughts that you would be better off , or of hurting yourself in some way: Not at all Total Score: 0 ARTHUR-Q SV Test - Statements CAD is a disease of the arteries in the heart: False Examples of risk factors for heart disease: True Angina is chest pain or discomfort: True The benefits of resistance training include: True Eating more meat and dairy products: False Anti-platelet medications such as aspirin are important: True The only effective way to manage stress: False An exercise warm-up slowly increases heart rate: True Prepared, processed foods usually have high sodium: True Depression is common after a heart attack: True The statin medications lower cholesterol: True To control blood pressure, lower the amount of sodium: True If someone gets chest discomfort during walking: False Transfats are partially hydrogenated vegetable oils: True Sleep apnea that is not treated increases the risk: False To control cholesterol, one should become a vegetarian: False Someone knows if he/she is exercising at the right level: True Diabetes cannot be prevented with exercise & health eating: False Stress is a large risk for heart attack: True A diet that can help lower blood pressure is rich in: True - Total Score Total Correct Responses: 20 Self-Efficacy Discharge Assessment We would like to know how confident you are in doing certain activities. Please select your confidence level for:: Select your confidence level for the following using the scale 1-10 where 1 is not at all confident and 10 is totally confident. Your score is the average of all 6 responses. Fatigue: How confident are you that you can keep the fatigue caused by your disease from interfering with the things you want to do? Select Number: 9 Physical Discomfort or Pain: How confident are you that you can keep the physical discomfort or pain of your disease from interfering with the things you want to do? Select Number: 10 Emotional Distress: How confident are you that you can keep the emotional distress caused by your disease from interfering with the things you want to do? Select Number: 10 Other Symptoms or Health Problems: How confident are you that you can keep other symptoms or health problems from interfering with the things you want to do? Select Number: 10 Different Tasks and Activities: How confident are you that you can do the different tasks and activities needed to manage your health condition so as to reduce your need to see a doctor? Select Number: 10 Medication: How confident are you that you can do things other than just taking medication to reduce how much your illness affects your everyday life? Select Number: 10 Total Score:: 9 Nutrition Survey - Nutrition Survey Instructions Scoring Instructions: Scoring is as follows: Yes = 1 points. No = 0 point. Patient score that is >/=12 is considered to be at potential nutritional risk and could benefit from a referral to a registered dietitian. - Nutrition Survey Discharge Have you lost >10 lbs over the past 2 months without trying?: No Are you following a special diet at home for diabetes, low fat, or low salt?: Yes - Low fat, low sodium, 1800 calorie cardiac diet Are you interested in meeting with a dietitian for help understanding your diet?: No Do you eat less than 3 meals a day?: No Do you eat fatty meats (saeed, sausage, ribs, etc), fried foods, desserts, large amounts of salad dressings, margarine, butter, or cheese most days?: No Do you eat in restaurants more than 3 times a week?: No Do you season food with salt, seasoning salt, or garlic salt?: No Do you used canned, boxed, frozen meals, or soups, seasoning packets?: Yes
[2018-01-21 12:36] VITALS: BP 150/90; BP 158/80
== END 2018-01-28 23:59 ==
LOC: CR 10:15
PROVIDERS: Family Provider Internal Medicine; PCP Internal Medicine; Visit Provider Internal Medicine Cardiovascular Disease
DX: I25.10 Atherosclerotic heart disease of native coronary artery without angina pectoris (principal); Z95.5 Presence of coronary angioplasty implant and graft
CPT/HCPCS: 93798

== ENCOUNTER → 2018-01-13 07:32 | Outpatient (CLI) | payer MEDICARE, SELFPAY ==
--- NOTE | 2018-01-13 07:35 | ECHOD_ITS ---
Reason For Study: CAD/ASHD Procedure This was a 2D Doppler, Color Flow transthoracic echocardiogram. DEFINITY NOT UTILIZED DUE TO INCREASED PULMONARY PRESSURES. Exam performed in department. Left Ventricle Normal LV size. The estimated ejection fraction is 20 %. Severe segmental systolic dysfunction (see wall motion). Transmitral diastolic flow velocities suggest severe (stage 3) diastolic dysfunction. Right Ventricle Mildly dilated right ventricle. ICD or pacer leads identified within the right ventricle. Moderate global right ventricular systolic dysfunction. Atria The left atrium is mildly enlarged. The right atrium is moderately enlarged. Mitral Valve Normal mitral valve. Mild (1+) eccentric mitral valve insufficiency. Tricuspid Valve Normal tricuspid valve. Mild to moderate (1-2+) tricuspid valve insufficiency. Pulmonary artery systolic pressure is 53 mmHg. Moderate pulmonary hypertension. Aortic Valve Trisinus/trileaflet aortic valve. Mild focal aortic valve calcification. Pulmonic Valve The pulmonic valve is not well visualized. Great Vessels Normal aortic root. The pulmonary artery is normal size. Normal inferior vena cava. Pericardium/Pleural No pericardial effusion. MMode/2D Measurements & Calculations LVIDd: 5.3 cm IVSd: 1.2 cm LVOT diam: 2.0 cm LVIDs: 4.2 cm LVPWd: 1.2 cm LVOT area: 3.0 cm2 RVDd: 4.2 cm FS: 20.1 % Ao root diam: 3.3 cm LAV(MOD-bp): 84.2 ml LVAd ap4: 43.0 cm2 LA dimension: 4.3 cm LAV(MOD-bp) Indexed: 43.0 ml/m2 EDV(MOD-sp4): 169.8 ml LAV(MOD-sp2): 106.3 ml EDV(sp4-el): 176.3 ml LAV(MOD-sp4): 67.4 ml LVAs ap4: 36.9 cm2 ESV(MOD-sp4): 126.1 ml ESV(sp4-el): 132.1 ml EF(MOD-sp4): 25.7 % EF(sp4-el): 25.1 % SV(MOD-sp4): 43.7 ml SV(sp4-el): 44.3 ml LA A4 area: 23.6 cm2 RA A4 area: 30.4 cm2 Time Measurements MV dec time: 0.17 sec Doppler Measurements & Calculations MV E max jimmie: 110.2 cm/sec Lat Peak E' Jimmie: 4.6 cm/sec Med Peak E' Jimmie: 4.2 cm/sec MV A max jimmie: 34.4 cm/sec E/E' lat: 24.0 E/E' med: 26.2 MV E/A: 3.2 Ao V2 max: 189.4 cm/sec LV V1 max: 83.3 cm/sec SV(LVOT): 48.5 ml Ao max P.3 mmHg LV V1 max P.8 mmHg Ao V2 mean: 138.8 cm/sec LV V1 mean P.5 mmHg Ao mean P.5 mmHg LV V1 mean: 57.5 cm/sec Ao V2 VTI: 37.5 cm LV V1 VTI: 16.1 cm МАРИНА(I,D): 1.3 cm2 МАРИНА(V,D): 1.3 cm2 PA V2 max: 85.1 cm/sec TR max jimmie: 340.7 cm/sec TR max P.3 mmHg Interpretation Summary Normal LV size. The estimated ejection fraction is 20 %. Severe segmental systolic dysfunction (see wall motion). Transmitral diastolic flow velocities suggest severe (stage 3) diastolic dysfunction Pulmonary artery systolic pressure is 53 mmHg. Moderate pulmonary hypertension. Compared to prior study, there is no significant change. Ordering Physician: Grace Moreno Referring Physician: Jose Ibarra Performed By: Bee Colbert RDCS
== END ==
PROVIDERS: Family Provider Internal Medicine; PCP Internal Medicine; Visit Provider Internal Medicine Cardiovascular Disease
DX: I47.2 Ventricular tachycardia (principal); I25.5 Ischemic cardiomyopathy
CPT/HCPCS: 93306

== ENCOUNTER → 2018-02-05 08:24 | Outpatient (CLI) | payer MEDICARE, SELFPAY ==
[2018-02-05 10:01] LABS: Anion Gap 6 (5-15); BUN 28 mg/dL (7-18); BUN/Creat Ratio 18.1 RATIO (10-20); Calcium,Total 9.6 mg/dL (8.5-10.1); Chloride 102 mmol/L (98-107); Creatinine, Serum 1.55 mg/dL (0.70-1.30); EST Glomerular Filtration Rate 46 mL/min (>60); Est Glom Filt Rate - Afr Amer 56 mL/min (>60); Glucose 108 mg/dL (74-106); Potassium 3.9 mmol/L (3.5-5.1); Sodium Level 141 mmol/L (136-145)
== END ==
PROVIDERS: Family Provider Internal Medicine; PCP Internal Medicine; Visit Provider Physician Assistant Medical
DX: I27.21 Secondary pulmonary arterial hypertension (principal); E78.5 Hyperlipidemia, unspecified; I25.2 Old myocardial infarction; I25.10 Atherosclerotic heart disease of native coronary artery without angina pectoris; I25.5 Ischemic cardiomyopathy; I47.2 Ventricular tachycardia; Z95.5 Presence of coronary angioplasty implant and graft; Z95.810 Presence of automatic (implantable) cardiac defibrillator; Z98.890 Other specified postprocedural states
CPT/HCPCS: 36415; 80048

== ENCOUNTER → 2018-08-14 11:40 | Outpatient (CLI) | payer MEDICARE, SELFPAY ==
[2018-08-14 10:43] VITALS: BMI 29.2
== END ==
PROVIDERS: Family Provider Internal Medicine; PCP Internal Medicine; Referring Provider Nurse Practitioner Family; Visit Provider Nurse Practitioner Family
DX: I25.10 Atherosclerotic heart disease of native coronary artery without angina pectoris (principal); I25.5 Ischemic cardiomyopathy; R06.09 Other forms of dyspnea; I50.21 Acute systolic (congestive) heart failure

== ENCOUNTER → 2018-08-15 09:25 | Outpatient (CLI) | payer MEDICARE, SELFPAY ==
[2018-08-14 10:43] VITALS: BMI 29.2
[2018-08-15 11:20] LABS: AST(SGOT) 33 U/L (15-37); Alanine Aminotransfer ALT/SGPT 28 U/L (16-61); Albumin, Serum 3.8 g/dL (3.2-5.0); Alkaline Phosphatase 76 U/L (45-117); Bilirubin, Direct 0.13 mg/dL (0.00-0.30); Cholesterol 278 mg/dL (200); Globulin 3.8 g/dL (2.2-4.2); High Density Lipoprotein 48 mg/dL; Protein, Total 7.6 g/dL (6.4-8.2); Triglycerides 178 mg/dL; Very Low Density Lipoprotein 36 mg/dL (5-40)
== END ==
PROVIDERS: Family Provider Internal Medicine; PCP Internal Medicine; Referring Provider Nurse Practitioner Family; Visit Provider Nurse Practitioner Family
DX: E78.5 Hyperlipidemia, unspecified (principal)
CPT/HCPCS: 36415; 80061; 80076

== ENCOUNTER 2018-09-11 23:03 | Emergency (ER) | payer MEDICARE, SELFPAY ==
[2018-08-14 10:43] VITALS: BMI 29.2
[2018-09-11 23:04] VITALS: BP 161/74; PULSE 48; RESP 14; TEMP 36.5; O2SAT 95; BMI 28.0
[2018-09-11 23:12] VITALS: O2SAT 98
[2018-09-11 23:19] VITALS: BP 131/64; PULSE 42; RESP 22; O2SAT 97
--- NOTE | 2018-09-11 23:45 | RAD_ITS ---
STUDY: X-RAY CHEST REASON FOR EXAM: Male, 82 years old. Shortness of breath TECHNIQUE: 1 view COMPARISON: June 30, 2017 FINDINGS: There is cardiomegaly with central vascular congestion. A cardiac pacemaker is in place. No pneumonia. No pleural effusions.. Degenerative changes of the thoracic spine Normal visualized ribs, clavicles, and shoulders. There is no demonstrated abnormality of the visualized soft tissue structures of the upper abdomen. RAD/Chest 1 View (Portable) IMPRESSION: Mild cardiomegaly with central vascular congestion. No pneumonia. No pleural effusions. Electronically Signed: Joshua Fagan MD at 1:13 EDT Tel , Service support ,
--- NOTE | 2018-09-11 23:46 | EKG12_ITS ---
Test Reason : BRADYCARDIA Blood Pressure : / mmHG Vent. Rate : 044 BPM Atrial Rate : 044 BPM P-R Int : 210 ms QRS Dur : 174 ms QT Int : 606 ms P-R-T Axes : 056 -80 090 degrees QTc Int : 518 ms Marked sinus bradycardia with 1st degree A-V block Left axis deviation Left bundle branch block Possible Lateral infarct (cited on or before 01-JUL-2017) Abnormal ECG Confirmed by AKILA ZULETA ([id number]), technical writer and editor MARCO BOND ([id number]) on 09/15/2018 4:47:49 PM Referred By: BRYN/JENNIFER Confirmed By:AKILA ZULETA
[2018-09-11 23:53] VITALS: O2SAT 99
--- NOTE | 2018-09-11 23:54 | ED.VISSUMM ---
- ER Visit Summary Date of Service: 09/11/18 Chief Complaint: [] Shortness of breath with exertion History of Present Illness: The patient is a 82 M with the above complaints for the last 7 days gradual onset intermittent. Current severity is mild. He almost feels normal while resting but when he exerts himself he feels short of breath at times. No cough no chest pain. He has a pacemaker that was placed in [place] in July of last year. He has a ICD as well for a history of CHF with reported ejection fraction in the 20s. His heart rate was in the 40s at home per EMS which brought him in for further evaluation. He is followed by cardiology Dr. Ibarra Physical Examination: [] Vital signs reviewed General: Well-nourished well-developed Head: Normocephalic atraumatic Eyes: Pupils equal round and reactive to light extraocular movements intact ENT: TMs clear no hemotympanum no trauma Neck: Nontender full range of motion Cardiovascular: Regular bradycardiac rhythm no murmurs normal S1-S2 Respiratory: No distress clear to auscultation bilaterally chest nontender Abdomen: Soft nontender nondistended normal bowel sounds no masses Back: Nontender no CVA tenderness Extremities: Nontender active range of motion ?4 extremities no trauma Skin: Normal color no trauma Neuro alert oriented cranial nerves II through XII intact normal strength sensation reflexes Test Results: [] Emergency Department Course and Treatment: [] EKG shows sinus rhythm at a rate of 44. No pacer spikes noted. Intraventricular conduction delay noted. First-degree heart block. Chest x-ray and lab work obtained. Chest x-ray shows very mild central vascular congestion. No overt CHF. CBC normal. Chemistries normal except creatinine 2.1 up from 1.75. Patient has chronic renal insufficiency. Troponin negative. BNP elevated at 962. Patient remained stable here. We took him off his oxygen. He walked in. He is 93% on room air. His pacer kicked in at a rate of 40. He is never gone below this. It is set at 40. At this time is likely related to his metoprolol causing significant bradycardia. Does not appear to he is having acute coronary syndrome. He has mild exacerbation of his COPD CHF from his bradycardia. I do not think he needs Lasix at this time. He takes this at home. I discussed the case with Dr. Woods who stated that they like to see the patient in the office in the morning to further evaluate and perhaps change his pacemaker settings as well as his beta-efra. He will hold this. He is comfortable going home. They will follow-up as an outpatient. Patient will return if he worsens. 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 It may contain incorrect words, spelling, and punctuation that were not noted in review of the chart prior to signing ED Disposition - Plan for ED Patient: Referrals: Perry Olivas MD [Primary Care Provider] -
[2018-09-11 23:57] LABS: Absolute Lymphocyte Count 1.74 X10^3/ul (0.83-4.51); Absolute Neutrophil Count 5.4 X10^3/uL (2.0-7.7); Basophil# 0.02 X10^3/uL; Basophil% 0.2 % (0-1); Eosinophil# 0.26 X10^3/uL; Eosinophils% 3.2 % (0-5); Hematocrit 42.2 % (40-54); Hemoglobin 14.2 g/dl (13.0-16.5); Lymphocyte # 1.74 X10^3/ul (4.0); Lymphocyte % 21.6 % (19-41); Mean Corp Hgb Conc 33.6 g/gl (32-36); Mean Corpuscular Hgb 32.9 pg (27.0-32.0); Mean Corpuscular Volume 97.7 fL (80-94); Mean Platelet Vol. 10.2 fl (6.2-12.0); Monocyte# 0.62 X10^3/uL; Monocyte% 7.7 % (0-10); Neutrophil # 5.36 X10^3/uL (2.7-7.7); Neutrophil % 66.8 % (47-70); Platelet Count 183 K/mm3 (150-450); RBC Distribution Width CV 12.3 % (11.6-14.6); RBC Distribution Width SD 42.7 fl (35.1-43.9); Red Blood Count 4.32 M/mm3 (4.6-6.2)
[2018-09-11 23:59] LABS: POSITIVE COUNT NO; POSITIVE DIFFERENTIAL NO; POSITIVE MORPHOLOGY NO
[2018-09-12 00:15] LABS: Anion Gap 8 (5-15); BUN 35 mg/dL (7-18); BUN/Creat Ratio 16.5 RATIO (10-20); Calcium,Total 9.3 mg/dL (8.5-10.1); Chloride 106 mmol/L (98-107); Creatinine, Serum 2.12 mg/dL (0.70-1.30); EST Glomerular Filtration Rate 32 mL/min (>60); Est Glom Filt Rate - Afr Amer 39 mL/min (>60); Estimated Creatinine Clearance 26.86 ml/min; Glucose 115 mg/dL (74-106); Potassium 3.9 mmol/L (3.5-5.1); Sodium Level 137 mmol/L (136-145)
[2018-09-12 00:19] VITALS: BP 118/70; PULSE 40; RESP 18; O2SAT 99
[2018-09-12 00:27] LABS: BNP,B-Type NATRIURETIC PEPTIDE 962.9 pg/mL (0-100)
[2018-09-12 01:12] VITALS: BP 122/50; PULSE 40; RESP 18; O2SAT 98
--- NOTE | 2018-09-12 01:32 | ED.DEP ---
ED Disposition - Plan for ED Patient: Disposition: Home or Assisted Living Instructions: ED Bradycardia Referrals: Perry Olivas MD [Primary Care Provider] - Jose Ibarra MD [STAFF PHYSICIAN] -
[2018-09-12 01:42] VITALS: BP 108/83; PULSE 40; RESP 20; O2SAT 96
== END 2018-09-12 01:44 | disposition home or self-care (01) ==
PROVIDERS: Emergency Provider Emergency Medicine; Family Provider Internal Medicine; PCP Internal Medicine
DX: R00.1 Bradycardia, unspecified (principal); I11.0 Hypertensive heart disease with heart failure; I50.9 Heart failure, unspecified; Z95.810 Presence of automatic (implantable) cardiac defibrillator; I25.10 Atherosclerotic heart disease of native coronary artery without angina pectoris; I25.2 Old myocardial infarction; E78.00 Pure hypercholesterolemia, unspecified; I48.91 Unspecified atrial fibrillation; I42.9 Cardiomyopathy, unspecified; Z79.82 Long term (current) use of aspirin; Z79.899 Other long term (current) drug therapy
CPT/HCPCS: 71045; 80048; 83880; 84484; 85025; 93005; 99284; A4216

== ENCOUNTER → 2018-09-16 12:14 | Outpatient (CLI) | payer MEDICARE, SELFPAY ==
[2018-09-16 10:55] VITALS: BMI 28.6
[2018-09-16 13:58] LABS: T4 Free Direct 1.12 ng/dL (0.76-1.46)
== END ==
PROVIDERS: Family Provider Internal Medicine; PCP Internal Medicine; Referring Provider Physician Assistant Medical; Visit Provider Physician Assistant Medical
DX: E78.5 Hyperlipidemia, unspecified (principal)
CPT/HCPCS: 36415; 84439; 84443

== ENCOUNTER → 2018-10-01 09:31 | Outpatient (CLI) | payer MEDICARE, SELFPAY ==
[2018-09-16 10:55] VITALS: BMI 28.6
[2018-10-01 11:38] LABS: BNP,B-Type NATRIURETIC PEPTIDE 511.7 pg/mL (0-100)
== END ==
PROVIDERS: Family Provider Internal Medicine; PCP Internal Medicine; Referring Provider Internal Medicine Cardiovascular Disease; Visit Provider Internal Medicine Cardiovascular Disease
DX: I25.5 Ischemic cardiomyopathy (principal); I50.21 Acute systolic (congestive) heart failure
CPT/HCPCS: 36415; 83880

== ENCOUNTER → 2018-10-16 | Outpatient (CLI) | payer MEDICARE, SELFPAY ==
[2018-09-16 10:55] VITALS: BMI 28.6
[2018-10-16 12:01] LABS: Anion Gap 6 (5-15); BUN 37 mg/dL (7-18); Chloride 104 mmol/L (98-107); Creatinine, Serum 2.05 mg/dL (0.70-1.30); EST Glomerular Filtration Rate 33 mL/min (>60); Est Glom Filt Rate - Afr Amer 40 mL/min (>60); Glucose 100 mg/dL (74-106); Potassium 4.3 mmol/L (3.5-5.1); Sodium Level 142 mmol/L (136-145)
== END | disposition home or self-care (01) ==
LOC: LAB 10:52
PROVIDERS: Family Provider Internal Medicine; PCP Internal Medicine; Referring Provider Nurse Practitioner Family; Visit Provider Nurse Practitioner Family
DX: I10 Essential (primary) hypertension (principal); I25.10 Atherosclerotic heart disease of native coronary artery without angina pectoris; I25.5 Ischemic cardiomyopathy
CPT/HCPCS: 36415; 80048

== ENCOUNTER → 2018-12-15 | Outpatient (CLI) | payer MEDICARE, SELFPAY ==
[2018-11-13 08:38] VITALS: BMI 28.3
--- NOTE | 2018-12-15 12:35 | ECHOCS_ITS ---
Reason For Study: CAD Procedure This was a 2D Doppler, Color Flow transthoracic echocardiogram. Exam performed in department. Left Ventricle Normal LV size. Mild concentric left ventricular hypertrophy. The estimated ejection fraction is 20 %. There are regional wall motion abnormalities as specified. Right Ventricle Normal RV size. ICD or pacer leads identified within the right ventricle. Normal systolic function. Atria The left atrium is moderately enlarged. Normal right atrium. Mitral Valve Normal mitral valve. Mild (1+) eccentric mitral valve insufficiency. Tricuspid Valve Normal tricuspid valve. Mild (1+) tricuspid valve insufficiency. Pulmonary artery systolic pressure is 28 mmHg. Aortic Valve Trisinus/trileaflet aortic valve. Moderate focal aortic valve calcification. Peak aortic valve gradient 16 mmHg. Mean aortic valve gradient 9 mmHg. Pulmonic Valve The pulmonic valve is not well visualized. Great Vessels Normal aortic root. The pulmonary artery is normal size. Normal inferior vena cava. Pericardium/Pleural No pericardial effusion. Medication 22 gauge I.V. with prn adaptor inserted into right arm. Diluted definity 6ml given slow IV push to enhance endocardial definition. MMode/2D Measurements & Calculations LVIDd: 4.9 cm IVSd: 1.2 cm LVOT diam: 1.9 cm LVIDs: 3.7 cm LVPWd: 1.3 cm RVDd: 4.9 cm FS: 24.8 % LVOT area: 2.9 cm2 Ao root diam: 3.4 cm LAV(MOD-bp): 86.6 ml EDV(MOD-sp4): 123.5 ml LAV(MOD-bp) Indexed: 43.8 ml/m2 ESV(MOD-sp4): 73.0 ml LAV(MOD-sp2): 71.2 ml EF(MOD-sp4): 40.9 % LAV(MOD-sp4): 88.7 ml EDV(MOD-sp2): 119.3 ml SV(MOD-sp4): 50.6 ml SV(MOD-sp2): 71.7 ml EF(MOD-sp2): 60.1 % LA dimension(2D): 5.1 cm Aortic Valve Planimetry: 1.2 cm2 LA A4 area: 28.2 cm2 RA A4 area: 23.2 cm2 Time Measurements MV dec time: 0.20 sec Doppler Measurements & Calculations MV E max jimmie: 112.2 cm/sec Lat Peak E' Jimmie: 8.1 cm/sec Med Peak E' Jimmie: 5.2 cm/sec MV A max jimmie: 70.6 cm/sec E/E' lat: 13.8 E/E' med: 21.5 MV E/A: 1.6 Ao V2 max: 200.7 cm/sec LV V1 max: 94.7 cm/sec SV(LVOT): 56.1 ml Ao max P.1 mmHg LV V1 max P.6 mmHg Ao V2 mean: 141.3 cm/sec LV V1 mean P.8 mmHg Ao mean P.0 mmHg LV V1 mean: 62.7 cm/sec Ao V2 VTI: 41.6 cm LV V1 VTI: 19.4 cm МАРИНА(I,D): 1.3 cm2 МАРИНА(V,D): 1.4 cm2 PA V2 max: 69.2 cm/sec TR max jimmie: 243.2 cm/sec TR max P.4 mmHg Interpretation Summary Normal LV size. Mild concentric left ventricular hypertrophy. The estimated ejection fraction is 20 %. The left atrium is moderately enlarged. ICD or pacer leads identified within the right ventricle. Contrast injection was performed. Compared to prior study, there is no significant change. Ordering Physician: Jose Ibarra Referring Physician: ANTWAN PERKINS Performed By: Marian Batres, RDCS, RVT
== END | disposition home or self-care (01) ==
LOC: CVS 12:34
PROVIDERS: Family Provider Internal Medicine; PCP Internal Medicine; Referring Provider Internal Medicine Cardiovascular Disease; Visit Provider Internal Medicine Cardiovascular Disease
DX: I50.43 Acute on chronic combined systolic (congestive) and diastolic (congestive) heart failure (principal)
CPT/HCPCS: 93306; Q9957; A4216; C8929

== ENCOUNTER → 2019-02-04 12:44 | Outpatient (CLI) | payer MEDICARE, SELFPAY ==
[2019-01-23 08:45] VITALS: BMI 28.0
--- NOTE | 2019-02-04 12:49 | PCM.CR.HP2 ---
CR - History & Physical - General Arrival date:: 02/04/19 Arrival time:: 12:50 Date of Referral:: 01/08/19 Date of CR Evaluation:: 02/04/19 Referring Physician: Dr. 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 - History of Present Cardiac Event Onset Date: Enter Onset Date of cardiac illnesses in Comment field below Current stable Angina Pectoris:: No Acute Myocardial Infarction within 12 months:: No PTCA or coronary stenting:: Yes Heart Failure EF <35%:: Yes Interventions with present event:: implanted cardioverter-defibrillator - Medications Home Medications: Ambulatory Orders Medication Instructions Recorded Aspirin [Aspirin, Baby] 81 mg PO DAILY@0800 06/30/17 Multivitamin,Therapeutic [Thera] 1 ea PO DAILY 06/30/17 nitroglycerin 0.4 mg sublingual 0.4 mg SUBLINGUAL Q5-15M PRN 07/09/17 tablet Handicap Plaquard #1 ea 07/10/17 folic acid 1 mg tablet 1 mg PO QDAY #30 tab 07/02/18 clopidogrel 75 mg tablet 75 mg PO QDAY #90 tab 08/14/18 Cholecalciferol (Vitamin D3) 2,000 unit PO DAILY 09/11/18 [Vitamin D3] metoprolol succinate ER 25 mg 25 mg PO DAILY #90 tab 09/16/18 tablet,extended release 24 hr furosemide 40 mg tablet 40 mg PO .COMPLEX #270 tab 10/01/18 potassium chloride ER 20 mEq 20 meq PO DAILY #30 tab 10/03/18 tablet,extended release coenzyme Q10 100 mg capsule 100 mg PO DAILY 11/13/18 isosorbide mononitrate ER 60 mg 60 mg PO DAILY #90 tab 11/13/18 tablet,extended release 24 hr sertraline 50 mg tablet 50 mg PO DAILY #60 tab 11/13/18 turmeric 400 mg capsule mg PO cap 11/13/18 ezetimibe 10 mg tablet 10 mg PO DAILY #90 tab 01/23/19 losartan 100 mg tablet 50 mg PO QDAY #30 tab 01/27/19 - Allergies Allergies/Adverse Reactions: Allergies quinapril Allergy (Verified 01/23/19 08:45) Angioedema Ccisilf-Bbs-Rff Reductase Inhibitor Allergy (Verified 01/23/19 08:45) Hives and myalgias - Sleep Disorder Evaluation Hx of Sleep Apnea: No Do you snore loudly (louder than talking or can be heard through closed doors)?: No Do you often feel tired/ fatigued/ sleepy during daytime?: No Has anyone observed you stop breathing during sleep?: No History of Hypertension (for STOP score): Yes STOP Results: Negative Advanced Directives - Advanced Directives Power of Envelope Cutter: Yes Living Will: Yes Advance Directives Information Provided: Yes Advance Directives on File: Yes DNR Order?:: No Past Medical History - Past Medical Illness Medical History: Past Medical History (Last Reviewed 01/23/19 @ 10:05 by Jose Ibarra MD) Left bundle branch block (Acute) Onset Date: 09/11/18 I44.7 Essential (primary) hypertension (Chronic) I10 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) I50.43 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 Hyperlipidemia (Chronic) E78.5 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) I25.2 Atherosclerosis of coronary artery of [place] heart without angina pectoris (Chronic) I25.10 ALAN-Mid LAD w/ 3.0 x 34 mm JM, ALAN x 2 -Prox LAD w/ 3.0 x 38 Xience Alpine & 3.0 x 20 mm JM, ALAN-OM1 w/ 2.75 x 15 mm JM 07/04/17; ALAN-mid RCA w/ 3.0 x 33 mm Xience and POBA to distal RCA 08/01/17 Ischemic cardiomyopathy (Chronic) I25.5 Type 2 diabetes mellitus without complications E11.9 Syncope (Resolved) R55 Overweight (Inactive) E66.3 - Past Surgical History Surgical History: Past Surgical History (Last Reviewed 01/23/19 @ 10:05 by Jose Ibarra MD) History of coronary artery stent placement (Chronic) Onset Date: 08/01/17 Z95.5 ALAN-Mid LAD w/ 3.0 x 34 mm JM, ALAN x 2 -Prox LAD w/ 3.0 x 38 Xience Alpine & 3.0 x 20 mm JM, ALAN-OM1 w/ 2.75 x 15 mm JM 07/04/17; ALAN-mid RCA w/ 3.0 x 33 mm Xience and POBA to distal RCA 08/01/17 Presence of automatic implantable cardioverter-defibrillator (Inactive) Onset Date: 07/05/17 Z95.810 Surgical History: - - Carpal tunnel surgery. Shoulder and knee arthroscopic surgery. - Family History Summary Family History: Family History (Last Reviewed 01/23/19 @ 10:05 by Jose Ibarra MD) Mother Diabetes Sister Cancer pancreatic Social History - Smoking History Smoking Status: Former smoker Hx Smoking Cessation Date: may 1988 Hx Tobacco Use: Yes Hx Smoking Exposure: Yes - Alcohol Use Alcohol Usage: Yes - socially - Substance Abuse Hx Substance Use: No - Occupation Occupation (List type of work in comments):: Retired - Hobbies, Recreation, Social Activities Hobbies: Sports Recreational Activities: I am able to engage in a few activities Social Environment - Status Marital Status: - Current Living Arrangements Living Environment:: Spouse - Children How many children do you have?: 3 Do any of your children live nearby?: Yes - Safety Do you feel safe in your surroundings?: Yes - Assistance Do you need any assistance at home?: none Review of Systems - Review of Systems Hints: Right click = Denies ([place]). 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 - Vital Signs Pulse Ox: 94 - Pulse Pulse Rate: 63 Pulse Rhythm: Regular - Hypertension Blood Pressure Sitting - Left Arm: 90/56 - Diabetes Diabetic History: Type II - diet controlled Nutrition Referral for Diabetes: No - Obesity Height: 1.75 m Weight:: 86.183 kg Weight in Pounds: 190.0 lbs Body Mass Index (BMI): 28.0 Nutritional Referral for Obesity: No - Physical Inactivity Physical Inactivity: Reg Exercise 30 min/day, Physically demanding job, Recreational activity, None - Risk Stratification Risk Guidelines: Moderate Risk: Risk Factor for Smoking, Risk Factor for Dyslipidemia, Risk Factor for Depression, Highest Risk: Risk Factor for Diabetes, Risk Factor for Obesity, Risk Factor for Hypertension, Risk Factor for Sedentary Lifestyle - For Smoking Smoking Risk Guidelines: Smoking Low Risk: None or quit greater than 6 months ago. Smoking Moderate Risk: Smoker or quit 6 months or less ago. Smoking High Risk: Smoker - For Dyslipidemia Dyslipidemia Risk Guidelines: Low Risk: Moderate Risk: High Risk: 15-25% fat 25.1-29% fat >/= 30% fat. <7% sat fat 7-9% sat fat >9% sat fat. <150 mg chol 150-299 mg chol >/= 300 mg chol. LDL <100 LDL 100-129 LDL >/= 130. Chol/HDL ratio <5.0 Chol/HDL ratio 5.0-6.0 Chol/HDL ratio >6.0. Triglycerides <100 Triglycerides 100-149 Triglycerides >/= 150 - For Diabetes Mellitus Diabetes Risk Guidelines: Diabetes Low Risk: HgA1c <6.5% and/or FBG <120. Diabetes Moderate Risk: HgA1c 6.6-7.9% and/or FBG 120-180. Diabetes High Risk: HgA1c >/= 8% and/or FBG >180 - For Obesity/Overweight Obesity/Overweight Risk Guidelines: Obesity Low Risk: BMI <25.0. Obesity Moderate Risk: BMI 25-29.9. Obesity High Risk: BMI >/= 30.0 - For Hypertension Hypertension Risk Guidelines: Hypertension Low Risk: Systolic <120 and Diastolic <80. Hypertension Moderate Risk: Systolic 120-139 and Diastolic 80-89. Hypertension High Risk: Systolic >/= 140 and Diastolic >/= 90 - For Sedentary Lifestyle Sedentary Lifestyle Risk Guidelines: Sedentary Lifestyle Low Risk: >/= 1,500 kcal/week. Sedentary Lifestyle Moderate Risk: 700-1,499 kcal/week. Sedentary Lifestyle High Risk: < 700 kcal/week - For Depression Depression Risk Guidelines: Depression Low Risk: Not clinically depressed. Depression Moderate Risk: Mildly depressed. Depression High Risk: Clinically depressed - Family History Family History: Family History (Last Reviewed 01/23/19 @ 10:05 by Jose Ibarra MD) Mother Diabetes Sister Cancer Motivation - Motivation to Participate On a scale of 1 to 10, how prepared are you to commit to attending program?: 10 What do you see as barriers to successfully being able to complete the program?: none What do you see as the benefits of succesfully completing the program? In other words, what do you hope to get out of participating in the program?: improved health Are there issues you are dealing with that will interfere with completing the program?: none Do you have a spouse or signficant other, family or friends who will help support you to complete the program?: yes
[2019-02-04 13:42] VITALS: BP 90/56; PULSE 63; O2SAT 94; BMI 28.0
--- NOTE | 2019-02-04 13:42 | CR.ITP_ITS ---
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 Maintain the individual as the primary focus of care. 2. To improve the patient's quality of life. 3. Identification of cardiac risk factors and provide cardiac risk factor management. 4. Enhance the psychosocial status of the patient. 5. Reconditioning enough to allow the patient to resume customary activities. 6. Control symptoms of cardiac disease Scale for measuring improvement of personal goals: Enter appropriate number in Comments. 2 = Unchanged. 3 = Slightly Better. 4 = Moderate Improvement. 5 = Met my Goal Personal Goals: Initial Assessment: Improve management of stress and emotions, Improve energy level, Participate in home exercise program, Get back to work, or to resume activities faster, Improve knowledge of cardiac disease, Improve muscle strength and endurance, Improve diet and eating habits (eat healthier), Control risk factors (learn risk factor modification), Other goal: - drive, golf Exercise - Initial Assessment - Visit Date of Eval: 02/04/19 - initial eval - Stages of Change Stages of Change:: Contemplate - Physician Prescribed Exercise Modalities: Treadmill, Biodyne, Airdyne, NuStep Frequency (days/week): 3x/week for 12 weeks [36 sessions] Intensity: Resting heart rate plus 20 to 30 beats/ minute METs - Progression: 0.5-1.0 MET, RPE 11-14 WEEK: 2.5 Target Heart Rate:: Rest +20 - Hypertension Do any of the following apply?: Yes Resting Blood Pressure:: 90/56 - Intervention Home Exercise/Activity Goal:: Sitting Time <3 hrs/day - Education Goals:: Warm-up, RPE RUBEN Scale, S/S, Safe Exercise, Self-Monitoring - Exercise Program Goals Exercise Program Goals: Aerobic Activity >30 min, B/P <130/80 Nutrition - Initial Assessment - Program Goals Nutrition Program Goals: LDL <70. Total Cholesterol <200. HDL >45. Triglycerides <150. HgbA1C <7%. BMI <25 - Visit Date of Assessment:: 02/04/19 - Stages of Change Stages of Change:: Contemplate - Diabetes Diabetes:: Yes Do you monitor your blood sugar at home?: No - Weight Management Height: 1.75 m Weight:: 86.183 kg Total Score:: 2 - Intervention Referral to dietitian:: No Referral to Diabetic Clinic:: No Will attend diet classes:: Yes - Education Gave educational materials for:: Signs & symptoms of hypoglycemia, Signs & symptoms of hyperglycemia, Relate diabetes to coronary artery disease, Healthy eating Tobacco - Initial Assessment - Program Goals Tobacco Program Goals: Complete smoking cessation. Attend education classes. Improve Knowledge Test score - Stage of Change Stages of Change:: Contemplate - Family Support Do you have family support?: Yes - Tobacco Use Tobacco Use: Non-smoker - stopped in May of 1988 How long ago did you quit using tobacco products?: Greater than or equal to 6 months ago Do you use smokeless tobacco?: No - Intervention Smoking Cessation Referral:: No Individual Education/Counseling:: No Education Schedule Given:: Yes - Education Attended class for:: Treating Heart Disease, How The Heart Works, What it means to have Heart Disease, How Coronary Artery Disease is Diagnosed, Heart Procedures, What Heart Medications Do, Risk Factors & Modifications, Living an Active Life, Nutrition, Emotions & Heart Disease, Stress Management & Relaxation, Sleep Disorders & Heart Disease Psychosocial - Initial Assess - Target Goals Target Goals: Assess presence or absence of depression. Using a valid screening tool, maximizes coping skills. Positive support system - Stages of Change Stages of Change:: Contemplate - Psychosocial Test Tool Used:: HANDS Depression Questionnaire Total Mood Screening Score:: 0 Self-Efficacy Score:: 10 - Intervention PS - Interventions: Yes Attend Stress Management Classes, Yes Uses Stress Management Skills, No Referral to Mental Health, No Referral to [facility] Case Management, No Referral to Physician - Education Gave educational materials for:: Coping techniques, Signs & symptoms of depression, Stress management, Relaxation techniques - Assistive Devices Assistive Devices:: None Fall Risk Assessed:: Yes Patient Health Questionnaire Initial Assessment 1. Little interest or pleasure in doing things: Not at all 2. Feeling down, depressed, or hopeless: Not at all 3. Trouble falling or staying asleep, or sleeping too much: Not at all 4. Feeling tired or having little energy: Not at all 5. Poor appetite or overeating: Not at all 6. Feeling bad about yourself -- or that you are a failure or have let yourself or your family down: Not at all 7. Trouble concentrating on things, such as reading the newspaper or watching television: Not at all 8. Moving or speaking so slowly that other people could have noticed. Or the opposite - being so fidgety or restless that you have been moving around a lot more than usual: Not at all 9. Thoughts that you would be better off , or of hurting yourself in some way: Not at all How difficult have these problems made it for you to do your work, take care of things at home, or get along with other people?: Not difficult at all Total Score: 0 ARTHUR-Q SV Test - Statements CAD is a disease of the arteries in the heart: True Examples of risk factors for heart disease: True Angina is chest pain or discomfort: True The benefits of resistance training include: True Eating more meat and dairy products: False Anti-platelet medications such as aspirin are important: True The only effective way to manage stress: False An exercise warm-up slowly increases heart rate: True Prepared, processed foods usually have high sodium: True Depression is common after a heart attack: True The statin medications lower cholesterol: True To control blood pressure, lower the amount of sodium: True If someone gets chest discomfort during walking: False Transfats are partially hydrogenated vegetable oils: True Sleep apnea that is not treated increases the risk: True To control cholesterol, one should become a vegetarian: False Someone knows if he/she is exercising at the right level: True Diabetes cannot be prevented with exercise & health eating: True Stress is a large risk for heart attack: True A diet that can help lower blood pressure is rich in: True - Total Score Total Correct Responses: 17 Self-Efficacy Initial Assessment We would like to know how confident you are in doing certain activities. Please select your confidence level for:: Select your confidence level for the following using the scale 1-10 where 1 is not at all confident and 10 is totally confident. Your score is the average of all 6 responses. Fatigue: How confident are you that you can keep the fatigue caused by your disease from interfering with the things you want to do? Select Number: 10 Physical Discomfort or Pain: How confident are you that you can keep the physical discomfort or pain of your disease from interfering with the things you want to do? Select Number: 10 Emotional Distress: How confident are you that you can keep the emotional distress caused by your disease from interfering with the things you want to do? Select Number: 10 Other Symptoms or Health Problems: How confident are you that you can keep other symptoms or health problems from interfering with the things you want to do? Select Number: 10 Different Tasks and Activities: How confident are you that you can do the different tasks and activities needed to manage your health condition so as to reduce your need to see a doctor? Select Number: 10 Medication: How confident are you that you can do things other than just taking medication to reduce how much your illness affects your everyday life? Select Number: 10 Total Score:: 10 Nutrition Survey - Nutrition Survey Instructions Scoring Instructions: Scoring is as follows: Yes = 1 points. No = 0 point. Patient score that is >/=12 is considered to be at potential nutritional risk and could benefit from a referral to a registered dietitian. - Nutrition Survey Initial Have you lost >10 lbs over the past 2 months without trying?: No Are you following a special diet at home for diabetes, low fat, or low salt?: Yes Are you interested in meeting with a dietitian for help understanding your diet?: Yes Do you eat less than 3 meals a day?: No Do you eat fatty meats (saeed, sausage, ribs, etc), fried foods, desserts, large amounts of salad dressings, margarine, butter, or cheese most days?: No Do you have food allergies? [Enter types in comment field]: No Do you eat in restaurants more than 3 times a week?: No Do you season food with salt, seasoning salt, or garlic salt?: No Do you used canned, boxed, frozen meals, or soups, seasoning packets?: No Total Score:: 2
[2019-02-04 13:57] VITALS: BP 90/56
== END ==
PROVIDERS: Family Provider Internal Medicine; PCP Internal Medicine; Referring Provider Internal Medicine Cardiovascular Disease; Visit Provider Internal Medicine Cardiovascular Disease
DX: I25.5 Ischemic cardiomyopathy (principal); I25.10 Atherosclerotic heart disease of native coronary artery without angina pectoris; I25.2 Old myocardial infarction; E78.5 Hyperlipidemia, unspecified; Z95.5 Presence of coronary angioplasty implant and graft; I47.2 Ventricular tachycardia; I27.21 Secondary pulmonary arterial hypertension; I11.0 Hypertensive heart disease with heart failure; I50.43 Acute on chronic combined systolic (congestive) and diastolic (congestive) heart failure; I44.7 Left bundle-branch block, unspecified; Z95.810 Presence of automatic (implantable) cardiac defibrillator

== ENCOUNTER 2019-02-27 10:15 | Outpatient (RCR) | payer MEDICARE, SELFPAY ==
[2019-02-04 13:42] VITALS: BMI 28.0
== END 2019-02-28 23:59 ==
LOC: CR 10:15
PROVIDERS: Family Provider Internal Medicine; PCP Internal Medicine; Referring Provider Internal Medicine Cardiovascular Disease; Visit Provider Internal Medicine Cardiovascular Disease
DX: I44.7 Left bundle-branch block, unspecified (principal); I11.0 Hypertensive heart disease with heart failure; I50.43 Acute on chronic combined systolic (congestive) and diastolic (congestive) heart failure; I27.21 Secondary pulmonary arterial hypertension; I47.2 Ventricular tachycardia; E78.5 Hyperlipidemia, unspecified; I25.2 Old myocardial infarction; I25.10 Atherosclerotic heart disease of native coronary artery without angina pectoris; I25.5 Ischemic cardiomyopathy; Z95.810 Presence of automatic (implantable) cardiac defibrillator; Z95.5 Presence of coronary angioplasty implant and graft
CPT/HCPCS: 93798

== ENCOUNTER 2019-03-30 10:15 | Outpatient (RCR) | payer MEDICARE, SELFPAY ==
[2019-02-04 13:42] VITALS: BMI 28.0
--- NOTE | 2019-03-06 08:37 | CR.ITP_ITS ---
Exercise - 30-day Assessment - Visit Date of Eval: 03/06/19 Session #:: 8 - Stages of Change Stages of Change:: Action - Physician Prescribed Exercise Modalities: Treadmill, Airdyne, NuStep Frequency (days/week): 3 Duration (Minutes):: 30-45 Intensity: 60-80% age predicted maximum heart rate reserve METs - Progression: 0.5-1.0 MET, RPE 11-14 WEEK: 3.5 Target Heart Rate:: REST+20 bpm W/MAX hr 120 - Hypertension Resting Blood Pressure:: 144/80 Peak Exercise Blood Pressure:: 158/88 Medication Changes:: No - Intervention Home Exercise/Activity Goal:: Moderate Exercise 30 min/day x 5 days/wk - Education Goals:: Warm-up, RPE RUBEN Scale, S/S, Safe Exercise, Self-Monitoring - Exercise Program Goals Exercise Program Goals: Aerobic Activity >30 min Nutrition - Initial Assessment - Program Goals Nutrition Program Goals: LDL <70. Total Cholesterol <200. HDL >45. Triglycerides <150. HgbA1C <7%. BMI <25 - Diabetes Do you monitor your blood sugar at home?: No Nutrition - 30-Day Assessment - Program Goals Nutrition Program Goals: LDL <70. Total Cholesterol <200. HDL >45. Triglycerides <150. HgbA1C <7%. BMI <25 - Visit Date of Eval: 03/06/19 - Stages of Change Stages of Change:: Action - Lipids Has the patient seen the dietitian?: No - Diabetes Diabetes:: No - Weight Management Weight:: 191 lb 8 oz - INCREASE 1.5 POUNDS - Intervention Referral to dietitian:: No Referral to Diabetic Clinic:: No Will attend diet classes:: Yes - Education Attended class for:: Healthy eating Tobacco - 30-Day Assessment - Program Goals Tobacco Program Goals: Complete smoking cessation. Attend education classes. Improve Knowledge Test score - Stage of Change Stages of Change:: Action - Learning Barriers Learning Barriers: Participates in education - Family Support Do you have family support?: Yes - Tobacco Use Tobacco Use: Non-smoker Do you use smokeless tobacco?: No - Intervention Smoking Cessation Referral:: No Education Schedule Given:: Yes - Education Attended class for:: Treating Heart Disease, How The Heart Works, What it means to have Heart Disease, How Coronary Artery Disease is Diagnosed, Stress Management & Relaxation, Sleep Disorders & Heart Disease Psychosocial - Initial Assess - Target Goals Target Goals: Assess presence or absence of depression. Using a valid screening tool, maximizes coping skills. Positive support system - Psychosocial Test Tool Used:: HANDS Depression Questionnaire - Assistive Devices Fall Risk Assessed:: Yes Psychosocial - 30-Day Assess - Target Goals Target Goals: Assess presence or absence of depression. Using a valid screening tool, maximizes coping skills. Positive support system - Stages of Change Stages of Change:: Action - Psychosocial Test Tool Used:: HANDS Depression Questionnaire - Intervention PS - Interventions: Yes Attend Stress Management Classes, Yes Uses Stress Management Skills, No Referral to Mental Health, No Referral to [facility] [employer] god[employer], No Referral to Physician - Education Attended classes for:: Coping techniques, Signs & symptoms of depression, Stress management, Relaxation techniques - Patient/Program Goal Preventative Medication(s):: Aspirin, KOLBY inhibitor, Clopidogrel, Beta efra, Statin/lipid - Assistive Devices Assistive Devices:: None Fall Risk Assessed:: Yes Patient Health Questionnaire 30-Day Re-eval Assessment 1. Little interest or pleasure in doing things: Not at all 2. Feeling down, depressed, or hopeless: Not at all 3. Trouble falling or staying asleep, or sleeping too much: Not at all 4. Feeling tired or having little energy: Not at all 5. Poor appetite or overeating: Not at all 6. Feeling bad about yourself -- or that you are a failure or have let yourself or your family down: Not at all 7. Trouble concentrating on things, such as reading the newspaper or watching television: Not at all 8. Moving or speaking so slowly that other people could have noticed. Or the opposite - being so fidgety or restless that you have been moving around a lot more than usual: Not at all 9. Thoughts that you would be better off , or of hurting yourself in some way: Not at all Total Score: 0 Self-Efficacy 30-Day Re-eval Assessment We would like to know how confident you are in doing certain activities. Please select your confidence level for:: Select your confidence level for the following using the scale 1-10 where 1 is not at all confident and 10 is totally confident. Your score is the average of all 6 responses. Fatigue: How confident are you that you can keep the fatigue caused by your disease from interfering with the things you want to do? Select Number: 10 Physical Discomfort or Pain: How confident are you that you can keep the physical discomfort or pain of your disease from interfering with the things you want to do? Select Number: 10 Emotional Distress: How confident are you that you can keep the emotional distress caused by your disease from interfering with the things you want to do? Select Number: 10 Other Symptoms or Health Problems: How confident are you that you can keep other symptoms or health problems from interfering with the things you want to do? Select Number: 10 Different Tasks and Activities: How confident are you that you can do the different tasks and activities needed to manage your health condition so as to reduce your need to see a doctor? Select Number: 10 Medication: How confident are you that you can do things other than just taking medication to reduce how much your illness affects your everyday life? Select Number: 10 Total Score:: 10
[2019-03-06 08:41] VITALS: BP 144/80; BP 158/88
== END 2019-03-30 23:59 ==
LOC: CR 10:15
PROVIDERS: Family Provider Internal Medicine; PCP Internal Medicine; Referring Provider Internal Medicine Cardiovascular Disease; Visit Provider Internal Medicine Cardiovascular Disease
DX: I44.7 Left bundle-branch block, unspecified (principal); I50.43 Acute on chronic combined systolic (congestive) and diastolic (congestive) heart failure; I27.21 Secondary pulmonary arterial hypertension; I47.2 Ventricular tachycardia; E78.5 Hyperlipidemia, unspecified; I25.2 Old myocardial infarction; I25.10 Atherosclerotic heart disease of native coronary artery without angina pectoris; I25.5 Ischemic cardiomyopathy; Z95.810 Presence of automatic (implantable) cardiac defibrillator; Z95.5 Presence of coronary angioplasty implant and graft
CPT/HCPCS: 93798

== ENCOUNTER 2019-04-29 10:15 | Outpatient (RCR) | payer MEDICARE, SELFPAY ==
[2019-02-04 13:42] VITALS: BMI 28.0
[2019-03-31 01:00] VITALS: BP 144/80; BP 158/88
--- NOTE | 2019-04-03 11:35 | PCM.CR.ITP ---
Exercise - 60-Day Assessment - Visit Date of Eval: 04/03/19 Session #:: Latoya zuñiga 4 sessions due to personal vacation - Stages of Change Stages of Change:: Action - Physician Prescribed Exercise Modalities: Treadmill, Airdyne, NuStep Frequency (days/week): 3 Duration (Minutes):: 30-45 Intensity: 60-80% age predicted maximum heart rate reserve METs - Progression: 0.5-1.0 MET, RPE 11-14 WEEK: 4 increased from 3.4 Target Heart Rate:: 90-116 with max hr 120 - Hypertension Resting Blood Pressure:: 128/82 Peak Exercise Blood Pressure:: 130/86 Medication Changes:: No - Intervention Home Exercise/Activity Goal:: Moderate Exercise 30 min/day x 5 days/wk - Education Goals:: Warm-up, RPE RUBEN Scale, S/S, Safe Exercise, Self-Monitoring - Exercise Program Goals Exercise Program Goals: Aerobic Activity >30 min Nutrition - Initial Assessment - Program Goals Nutrition Program Goals: LDL <70. Total Cholesterol <200. HDL >45. Triglycerides <150. HgbA1C <7%. BMI <25 - Diabetes Do you monitor your blood sugar at home?: No Nutrition - 60-Day Assessment - Program Goals Nutrition Program Goals: LDL <70. Total Cholesterol <200. HDL >45. Triglycerides <150. HgbA1C <7%. BMI <25 - Visit Date of Eval: 04/03/19 - Stages of Change Stages of Change:: Action - Lipids Has the patient seen the dietitian?: No - Diabetes Diabetes:: Yes Insulin: No Non-Insulin Dependent?: Yes - Weight Management Weight:: 192 lb 8 oz - stable/unchanged - Intervention Referral to dietitian:: Yes Referral to Diabetic Clinic:: Yes Will attend diet classes:: Yes - Education Attended class for:: Signs & symptoms of hypoglycemia, Signs & symptoms of hyperglycemia, Relate diabetes to coronary artery disease, Healthy eating Tobacco - 60-Day Assessment - Program Goals Tobacco Program Goals: Complete smoking cessation. Attend education classes. Improve Knowledge Test score - Stage of Change Stages of Change:: Action - Learning Barriers Learning Barriers: Participates in education - Family Support Do you have family support?: Yes - Tobacco Use Tobacco Use: Non-smoker Do you use smokeless tobacco?: No - Intervention Smoking Cessation Referral:: No Individual Education/Counseling:: No Education Schedule Given:: Yes - Education Attended class for:: Treating Heart Disease, How The Heart Works, What it means to have Heart Disease, How Coronary Artery Disease is Diagnosed, Heart Procedures, What Heart Medications Do, Risk Factors & Modifications, Living an Active Life Psychosocial - Initial Assess - Target Goals Target Goals: Assess presence or absence of depression. Using a valid screening tool, maximizes coping skills. Positive support system - Psychosocial Test Tool Used:: HANDS Depression Questionnaire - Assistive Devices Fall Risk Assessed:: Yes Psychosocial - 60-Day Assess - Target Goals Target Goals: Assess presence or absence of depression. Using a valid screening tool, maximizes coping skills. Positive support system - Stages of Change Stages of Change:: Action - Psychosocial Test Tool Used:: HANDS Depression Questionnaire - Intervention PS - Interventions: Yes Attend Stress Management Classes, No Referral to Mental Health, No Referral to [facility] Case Management, No Referral to Physician, No Uses Stress Management Skills - Education Attended classes for:: Coping techniques, Signs & symptoms of depression, Stress management, Relaxation techniques - Patient/Program Goal Preventative Medication(s):: Aspirin, KOLBY inhibitor, Clopidogrel, Beta efra, Statin/lipid - Assistive Devices Assistive Devices:: None Fall Risk Assessed:: Yes Patient Health Questionnaire 60-Day Re-eval Assessment 1. Little interest or pleasure in doing things: Not at all 2. Feeling down, depressed, or hopeless: Not at all 3. Trouble falling or staying asleep, or sleeping too much: Not at all 4. Feeling tired or having little energy: Not at all 5. Poor appetite or overeating: Not at all 6. Feeling bad about yourself -- or that you are a failure or have let yourself or your family down: Not at all 7. Trouble concentrating on things, such as reading the newspaper or watching television: Not at all 8. Moving or speaking so slowly that other people could have noticed. Or the opposite - being so fidgety or restless that you have been moving around a lot more than usual: Not at all 9. Thoughts that you would be better off , or of hurting yourself in some way: Not at all How difficult have these problems made it for you to do your work, take care of things at home, or get along with other people?: Not difficult at all Total Score: 0 Self-Efficacy 60-Day Re-eval Assessment We would like to know how confident you are in doing certain activities. Please select your confidence level for:: Select your confidence level for the following using the scale 1-10 where 1 is not at all confident and 10 is totally confident. Your score is the average of all 6 responses. Fatigue: How confident are you that you can keep the fatigue caused by your disease from interfering with the things you want to do? Select Number: 10 Physical Discomfort or Pain: How confident are you that you can keep the physical discomfort or pain of your disease from interfering with the things you want to do? Select Number: 10 Emotional Distress: How confident are you that you can keep the emotional distress caused by your disease from interfering with the things you want to do? Select Number: 10 Other Symptoms or Health Problems: How confident are you that you can keep other symptoms or health problems from interfering with the things you want to do? Select Number: 10 Different Tasks and Activities: How confident are you that you can do the different tasks and activities needed to manage your health condition so as to reduce your need to see a doctor? Select Number: 10 Medication: How confident are you that you can do things other than just taking medication to reduce how much your illness affects your everyday life? Select Number: 10 Total Score:: 10
[2019-04-03 11:51] VITALS: BP 128/82; BP 130/86
== END 2019-04-30 23:59 ==
LOC: CR 10:15
PROVIDERS: Family Provider Internal Medicine; PCP Internal Medicine; Referring Provider Internal Medicine Cardiovascular Disease; Visit Provider Internal Medicine Cardiovascular Disease
DX: I44.7 Left bundle-branch block, unspecified (principal); I50.43 Acute on chronic combined systolic (congestive) and diastolic (congestive) heart failure; I27.21 Secondary pulmonary arterial hypertension; I47.2 Ventricular tachycardia; E78.5 Hyperlipidemia, unspecified; I25.2 Old myocardial infarction; I25.10 Atherosclerotic heart disease of native coronary artery without angina pectoris; I25.5 Ischemic cardiomyopathy; Z95.810 Presence of automatic (implantable) cardiac defibrillator; Z95.5 Presence of coronary angioplasty implant and graft
CPT/HCPCS: 93798

== ENCOUNTER 2019-05-11 10:15 | Outpatient (RCR) | payer MEDICARE, SELFPAY ==
[2019-02-04 13:42] VITALS: BMI 28.0
[2019-05-01 00:58] VITALS: BP 128/82; BP 130/86
--- NOTE | 2019-05-06 11:07 | CR.ITP_ITS ---
Exercise - 90-Day Assessment - Visit Date of Eval: 05/06/19 Session #:: 31 - Stages of Change Stages of Change:: Action - Physician Prescribed Exercise Modalities: Treadmill, Rower, Airdyne, NuStep Frequency (days/week): 3 Duration (Minutes):: 30-45 Intensity: 60-80% age predicted maximum heart rate reserve METs - Progression: 0.5-1.0 MET, RPE 11-14 WEEK: 4 RPE 12-13 PACED RHYTHM W/ RARE PACs/PVCs. Target Heart Rate:: 90-116 W/MAX HR 131 - Hypertension Resting Blood Pressure:: 154/80 Peak Exercise Blood Pressure:: 140/90 Medication Changes:: No - Intervention Home Exercise/Activity Goal:: Sitting Time <3 hrs/day - Education Goals:: Warm-up, RPE RUBEN Scale, S/S, Safe Exercise, Self-Monitoring - Exercise Program Goals Exercise Program Goals: Aerobic Activity >30 min Nutrition - Initial Assessment - Program Goals Nutrition Program Goals: LDL <70. Total Cholesterol <200. HDL >45. Triglycerides <150. HgbA1C <7%. BMI <25 - Diabetes Do you monitor your blood sugar at home?: No Nutrition - 90-Day Assessment - Program Goals Nutrition Program Goals: LDL <70. Total Cholesterol <200. HDL >45. Triglyceri stoney <150. HgbA1C <7%. BMI <25 - Visit Date of Eval: 05/06/19 - Stages of Change Stages of Change:: Action - Lipids Has the patient seen the dietitian?: No - Diabetes Diabetes:: No Insulin: No Non-Insulin Dependent?: No - Weight Management Weight:: 192 lb - UNCHANGED - Intervention Referral to dietitian:: No Referral to Diabetic Clinic:: No Will attend diet classes:: Yes - Education Attended class for:: Healthy eating Tobacco - 90-Day Assessment - Program Goals Tobacco Program Goals: Complete smoking cessation. Attend education classes. Improve Knowledge Test score - Stage of Change Stages of Change:: Action - Learning Barriers Learning Barriers: Participates in education - Family Support Do you have family support?: Yes - Tobacco Use Tobacco Use: Non-smoker Do you use smokeless tobacco?: No - Intervention Smoking Cessation Referral:: No Individual Education/Counseling:: No Education Schedule Given:: Yes - Education Attended class for:: Treating Heart Disease, How The Heart Works, What it means to have Heart Disease, How Coronary Artery Disease is Diagnosed, Heart Procedures, What Heart Medications Do, Risk Factors & Modifications, Living an Active Life, Nutrition, Emotions & Heart Disease, Stress Management & Relaxation, Sleep Disorders & Heart Disease Psychosocial - Initial Assess - Target Goals Target Goals: Assess presence or absence of depression. Using a valid screening tool, maximizes coping skills. Positive support system - Psychosocial Test Tool Used:: HANDS Depression Questionnaire - Assistive Devices Fall Risk Assessed:: Yes Psychosocial - 90-Day Assess - Target Goals Target Goals: Assess presence or absence of depression. Using a valid screening tool, maximizes coping skills. Positive support system - Stages of Change Stages of Change:: Action - Psychosocial Test Tool Used:: HANDS Depression Questionnaire - Intervention PS - Interventions: Yes Attend Stress Management Classes, Yes Uses Stress Management Skills, No Referral to Mental Health, No Referral to [facility] Case Management, No Referral to Physician - Education Attended classes for:: Coping techniques, Signs & symptoms of depression, Stress management, Relaxation techniques - Patient/Program Goal Preventative Medication(s):: Aspirin, KOLBY inhibitor, Clopidogrel, Beta efra, Statin/lipid - WIHT 'S ASSISTANCE, PATIENT IS COMPLIANT WITH MEDICATIONS - Assistive Devices Assistive Devices:: None Fall Risk Assessed:: Yes Patient Health Questionnaire 90-Day Re-eval Assessment 1. Little interest or pleasure in doing things: Not at all 2. Feeling down, depressed, or hopeless: Not at all 3. Trouble falling or staying asleep, or sleeping too much: Not at all 4. Feeling tired or having little energy: Not at all 5. Poor appetite or overeating: Not at all 6. Feeling bad about yourself -- or that you are a failure or have let yourself or your family down: Not at all 7. Trouble concentrating on things, such as reading the newspaper or watching television: Not at all 8. Moving or speaking so slowly that other people could have noticed. Or the opposite - being so fidgety or restless that you have been moving around a lot more than usual: Not at all 9. Thoughts that you would be better off , or of hurting yourself in some way: Not at all Total Score: 0 Self-Efficacy 90-Day Re-eval Assessment We would like to know how confident you are in doing certain activities. Please select your confidence level for:: Select your confidence level for the following using the scale 1-10 where 1 is not at all confident and 10 is totally confident. Your score is the average of all 6 responses. Fatigue: How confident are you that you can keep the fatigue caused by your disease from interfering with the things you want to do? Select Number: 9 Physical Discomfort or Pain: How confident are you that you can keep the physical discomfort or pain of your disease from interfering with the things you want to do? Select Number: 9 Emotional Distress: How confident are you that you can keep the emotional distress caused by your disease from interfering with the things you want to do? Select Number: 10 Other Symptoms or Health Problems: How confident are you that you can keep other symptoms or health problems from interfering with the things you want to do? Select Number: 10 Different Tasks and Activities: How confident are you that you can do the different tasks and activities needed to manage your health condition so as to reduce your need to see a doctor? Select Number: 10 Medication: How confident are you that you can do things other than just taking medication to reduce how much your illness affects your everyday life? Select Number: 9 Total Score:: 9
[2019-05-06 11:10] VITALS: BP 140/90; BP 154/80
== END 2019-05-30 23:59 ==
LOC: CR 10:15
PROVIDERS: Family Provider Internal Medicine; PCP Internal Medicine; Referring Provider Internal Medicine Cardiovascular Disease; Visit Provider Internal Medicine Cardiovascular Disease
DX: I44.7 Left bundle-branch block, unspecified (principal); I50.43 Acute on chronic combined systolic (congestive) and diastolic (congestive) heart failure; I27.21 Secondary pulmonary arterial hypertension; I47.2 Ventricular tachycardia; E78.5 Hyperlipidemia, unspecified; I25.2 Old myocardial infarction; I25.10 Atherosclerotic heart disease of native coronary artery without angina pectoris; I25.5 Ischemic cardiomyopathy; Z95.810 Presence of automatic (implantable) cardiac defibrillator; Z95.5 Presence of coronary angioplasty implant and graft
CPT/HCPCS: 93798

== ENCOUNTER → 2019-07-13 07:58 | Outpatient (CLI) | payer MEDICARE, SELFPAY ==
[2019-05-15 08:02] VITALS: BMI 28.3
== END ==
PROVIDERS: Family Provider Internal Medicine; PCP Internal Medicine; Referring Provider Internal Medicine Cardiovascular Disease; Visit Provider Internal Medicine Cardiovascular Disease
DX: I25.10 Atherosclerotic heart disease of native coronary artery without angina pectoris (principal); I44.7 Left bundle-branch block, unspecified; I25.5 Ischemic cardiomyopathy; I47.2 Ventricular tachycardia; Z95.810 Presence of automatic (implantable) cardiac defibrillator
CPT/HCPCS: 93308; Q9957; A4216; C8924

== ENCOUNTER → 2019-11-18 09:40 | Outpatient (CLI) | payer MEDICARE, SELFPAY ==
[2019-05-15 08:02] VITALS: BMI 28.3
[2019-11-17 14:50] VITALS: BMI 29.5
[2019-11-18 10:58] LABS: AST(SGOT) 14 U/L (15-37); Alanine Aminotransfer ALT/SGPT 17 U/L (16-61); Albumin, Serum 3.8 g/dL (3.2-5.0); Alkaline Phosphatase 82 U/L (45-117); Bilirubin, Direct 0.23 mg/dL (0.00-0.30); Cholesterol 194 mg/dL (200); Globulin 3.6 g/dL (2.2-4.2); High Density Lipoprotein 43 mg/dL; Protein, Total 7.4 g/dL (6.4-8.2); Triglycerides 162 mg/dL; Very Low Density Lipoprotein 32 mg/dL (5-40)
== END ==
PROVIDERS: Nurse Practitioner Family; PCP Internal Medicine
DX: I25.10 Atherosclerotic heart disease of native coronary artery without angina pectoris (principal); Z95.5 Presence of coronary angioplasty implant and graft; E78.00 Pure hypercholesterolemia, unspecified
CPT/HCPCS: 36415; 80061; 80076

== ENCOUNTER → 2020-03-22 | Outpatient (CLI) | payer MEDICARE, SELFPAY ==
[2019-11-17 14:50] VITALS: BMI 29.5
[2020-03-22 09:21] LABS: Cholesterol 162 mg/dL (200); High Density Lipoprotein 42 mg/dL; Triglycerides 189 mg/dL; Very Low Density Lipoprotein 38 mg/dL (5-40)
[2020-03-22 09:23] LABS: Vitamin D,25 Hydroxy 54.1 ng/mL
== END | disposition home or self-care (01) ==
PROVIDERS: PCP Internal Medicine
DX: E78.00 Pure hypercholesterolemia, unspecified (principal)
CPT/HCPCS: 36415; 80061; 82306

== ENCOUNTER 2020-07-11 10:37 | Day surgery (SDC) | payer MEDICARE, SELFPAY ==
[2019-11-17 14:50] VITALS: BMI 29.5
--- NOTE | 2020-07-04 12:05 | RAD_ITS ---
STUDY: X-RAY CHEST REASON FOR EXAM: Male, 84 years old. CAD, AFIB TECHNIQUE: PA and lateral views of the chest. COMPARISON: 09/11/2018 FINDINGS: Interval placement of 2 extra leads on the left subclavian pacemaker. No pneumothorax. The lungs are clear and expanded. There is no demonstrated pleural abnormality. There is moderate cardiac enlargement. Normal mediastinum and maude. Normal visualized pulmonary arteries. Normal visualized aortic arch and descending thoracic aorta. Normal visualized thoracic spine. Normal visualized ribs, clavicles, and shoulders. There is no demonstrated abnormality of the visualized soft tissue structures of the upper abdomen. RAD/Chest PA and Lateral IMPRESSION: No active disease. Electronically Signed: Dirk Hayes MD at 8:22 EST Tel , Service support ,
[2020-07-04 13:03] LABS: Anion Gap 6 (5-15); BUN 35 mg/dL (7-18); BUN/Creat Ratio 12.9 RATIO (10-20); Calcium,Total 9.9 mg/dL (8.5-10.1); Chloride 103 mmol/L (98-107); Creatinine, Serum 2.71 mg/dL (0.70-1.30); EST Glomerular Filtration Rate 24 mL/min (>60); Est Glom Filt Rate - Afr Amer 29 mL/min (>60); Glucose 106 mg/dL (74-106); Potassium 3.5 mmol/L (3.5-5.1); Sodium Level 141 mmol/L (136-145)
[2020-07-08 11:01] VITALS: BMI 29.5
--- NOTE | 2020-07-11 11:45 | PCM.HP.BLA ---
History and Physical Date of Admission: 07/11/20 MARCOS BECK, is a 84 M who presents to the [facility] today for a cardioversion. He has a history of coronary artery disease status post drug-eluting stent to LAD x3 and drug-eluting stent to first obtuse marginal branch in and staged drug-eluting stent to mid RCA with POBA to distal RCA at [facility] July 2017. Prior to this, he underwent a cardiac MRI at [facility] which did not show viability and thus he was not a surgical candidate. His heart catheterization in July 2017 prior to stenting showed 80% stenosis of the proximal left anterior descending artery, 90% stenosis of left anterior descending artery, 60% stenosis of diagonal vessel, 90% stenosis of the proximal circumflex artery, and 80% stenosis of the right coronary artery. He also has a history of ischemic cardiomyopathy with an estimated ejection fraction of 20%, syncope, ventricular tachycardia status post ICD placement in July 2017 at [facility], hypertension, and hyperlipidemia. He was sent to [facility] where he underwent Bi-V upgrade of his ICD on January 08, 2019. 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 A remote alert from patient's pacemaker was received on 05/22/2020 that showed ongoing atrial fibrillation since 04/30/2020. Thus, it was recommended to proceed with cardioversion. He denies chest, arm, jaw, or neck discomfort. His exercise tolerance is stable. He denies symptoms of palpitations, lightheadedness, dizziness, near syncope, or syncopal episodes. He denies edema or claudication issues. He denies orthopnea, PND, fever, chills, blood in urine, blood in stool, chronic cough, myalgia, or unexplainable fatigue. 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 Is patient in pain?: No Allergies quinapril Allergy (Verified 11/17/19 14:48) Angioedema Bffeosu-Hrc-Ncc Reductase Inhibitor Allergy (Verified 11/17/19 14:48) Hives and myalgias ezetimibe [From Zetia] Adverse Reaction (Verified 11/17/19 14:48) diarrhea Medications See EMR [facility] Social History (Updated 11/17/19 @ 16:23 by SEJAL Barker) Smoking Status: Former smoker how long ago did patient quit smoking: May 1988 alcohol intake: current alcohol intake frequency: holidays/special occasions only caffeine: No ROS Const Const: Negative for fatigue, weakness, body ache, fever(s) or chills ENT ENT: Negative for dizziness Cardio Chest Pain: No Palpitations: No Edema: None Muscle aches with walking: None Resp Respiratory: Positive for SOB with activity; negative for SOB at rest, SOB orthopnea\SOB lying down or paroxysmal nocturnal dyspnea GI GI: Negative nausea, vomiting blood/hematemesis, bright, red blood in stools or black,tarry stools : Negative for hematuria or frequent nighttime urination/ nocturia Musc Musc: Negative for muscle aches/ myalgia Skin Skin: Negative non-healing lesions or rash Neuro Neuro: Negative for dizziness, lightheadedness, near syncope, syncope, orthostatic symptoms or weakness Endo Endo: Negative for fatigue Allergy Allergy/Immunology: Negative for rash Cardiology Exam Const Appearance: cooperative, healthy appearing, comfortable and no acute distress Nutritional Appearance: average body habitus and well nourished Orientation: alert, awake and oriented x3 Head Head: normal to inspection Ears: hearing grossly normal bilaterally Nose: external nose normal Face and Sinus: face symmetric Mouth: oral mucosae normal Eyes General: appearance normal, both eyes and all related structures Eyelids: eyelids normal EOM: EOM intact bilaterally Neck Neck: normal visual inspection and no JVD Carotids: normal carotid upstroke Chest Chest inspection: normal inspection of the chest, symmetric chest movement and normal respiratory effort; negative cough Auscultation: Bilateral: Rhonchi Cardio Palpation: normal PMI Rate: regular rate Rhythm: irregular rhythm Heart sounds: S1 normal and S2 normal; negative rub, gallop or murmur GI GI: normal to inspection Neuro General: alert, awake, oriented x3 and CN's II-XI intact bilaterally Skin Skin: no rashes or lesions noted Extremities Pulses: Normal: Right Posterior Tibial Pulse, Left Posterior Tibial Pulse, Right Radial Pulse, Left Radial Pulse Lower Extremity Edema: None: Bilateral Psych Psychological: normal affect Assessment & Plan 1. Atherosclerosis of [place] coronary artery of [place] heart without angina pectoris I25.10 ALAN-Mid LAD w/ 3.0 x 34 mm JM, ALAN x 2 -Prox LAD w/ 3.0 x 38 Xience Alpine & 3.0 x 20 mm JM, ALAN-OM1 w/ 2.75 x 15 mm JM 07/04/17; ALAN-mid RCA w/ 3.0 x 33 mm Xience and POBA to distal RCA 08/01/17 Plan Patient denies any chest pain, arm pain, jaw pain, neck pain, new or worsening shortness of breath, or fatigue suggestive of angina at this time. We will continue to monitor. We will not make any medication regimen changes and will continue risk factor modification. 2. History of coronary artery stent placement Z95.5 ALAN-Mid LAD w/ 3.0 x 34 mm JM, ALAN x 2 -Prox LAD w/ 3.0 x 38 Xience Alpine & 3.0 x 20 mm MJ, ALAN-OM1 w/ 2.75 x 15 mm JM 07/04/17; ALAN-mid RCA w/ 3.0 x 33 mm Xience and POBA to distal RCA 08/01/17 Plan He continue current medical therapy. He will continue risk factor and lifestyle modification. Orders 3. Ischemic cardiomyopathy I25.5 Plan His most recent echocardiogram post biventricular pacemaker upgrade in July 2019 showed ejection fraction of 20%. This was unchanged from prior. He will continue with Lasix, metoprolol succinate, and Entresto therapy. Over time, hopefully his Entresto can be advanced. Previously has had lower blood pressures. 4. Presence of biventricular implantable cardioverter-defibrillator (ICD) Z95.810 upgraded ICD 01/08/19 Plan Based on remote transmission alert showing atrial fibrillation, he will proceed with DCCV. He has been anticoagulated with Eliquis. Patient's pacemaker/ICD appears to be functioning appropriately. We will continue to monitor this with routine/scheduled follow-ups. 5. Essential (primary) hypertension I10 Plan Patient's blood pressure is well-controlled. We will continue to monitor. We will not make any medication regimen changes. 6. Pure hypercholesterolemia E78.00 Plan He will continue current statin medication. He undergo repeat lipid and liver profile at his earliest convenience in a fasting state. Based on results, further recommendation be made. Supplemental Info Supplemental Information Echocardiogram from 07/13/2019: Interpretation summary Normal LV size. The estimate ejection fraction is 20%. Severe segmental systolic dysfunction (see wall motion). Mild (1+) eccentric mitral valve insufficiency. Contrast injection was performed. Compared to prior study, there is no significant change. Heart catheterization from July 2017 showed anterior akinesis and apical akinesis, left main with moderate calcification and 30% distal stenosis, proximal LAD with 80% stenosis, mid LAD with long 90% stenosis, diagonal 1 with ostial 60% stenosis, and severe LAD calcification, circumflex artery showed moderate luminal irregularities up to 50%, OM1 with proximal 90% stenosis, and mid RCA with 80% stenosis. Echocardiogram from 01/13/2018: Normal LV size. The estimated ejection fraction is 20 %. Severe segmental systolic dysfunction (see wall motion). Transmitral diastolic flow velocities suggest severe (stage 3) diastolic dysfunction Pulmonary artery systolic pressure is 53 mmHg. Moderate pulmonary hypertension. Compared to prior study, there is no significant change. Cardiac MRI from 07/03/17: Severe LV systolic dysfunction with significant ischemic and nonischemic scar burden. Moderate RV systolic dysfunction. Procedure Criteria Procedure Type: Elective COVID Risk Discussion: The surgeon/proceduralist and patient have discussed in detail the risk of exposure to and/or potential harm posed by the COVID-19 virus with having a surgery/procedure at this time versus the risk of delaying the surgery/procedure. It is not possible to know either the risk of delaying the surgery or procedure or chance of getting an infection with perfect accuracy, but a joint decision was made between the patient and the surgeon/proceduralist to proceed at this time with the scheduled surgery/procedure as indicated on the consent form.
--- NOTE | 2020-07-11 12:28 | CARDIOVERS ---
Cardioversion Cardioversion: DC cardioversion. Atrial fibrillation patient status post permanent pacemaker implantation. Patient was seen in the cardiac catheterization lab in the postabsorptive nonsedated state. Patient was seen by Dr. Delarosa of the critical care division. After informed consent was obtained anterior posterior pads were applied. 6 mg of intravenous etomidate was administered and then 200 J of synchronized DC cardioversion energy were applied. EKGs done did not appear to demonstrate roman catholic of sinus mechanism or AV sequential pacing. The patient was then administered an additional 6 mg of intravenous etomidate and 300 J of synchronized DC cardioversion energy were applied with prompt reversal to sinus rhythm as well as biventricular pacing and AV sequential pacing. EKG confirmed the above. Conclusion: Successful DC cardioversion from atrial fibrillation to sequential pacing. Continue anticoagulation.
--- NOTE | 2020-07-11 12:32 | PCM.OP.PRO ---
Procedure Report Date of Procedure: 07/11/20 CONSCIOUS SEDATION REPORT DATE OF SERVICE: July 11, 2020 BRIEF HISTORY OF PRESENT ILLNESS: The patient is an 84-year-old male who presented to [facility] for an elective outpatient cardioversion due to underlying atrial fibrillation. The patient is currently systemically anticoagulated on Eliquis. His last surface echocardiogram revealed an ejection fraction of approximately 20%. The patient denies any known anesthetic complications. He has never been diagnosed with obstructive sleep apnea. He is a non-smoker and denies ever having been diagnosed with COPD or asthma. PHYSICAL EXAMINATION: VITAL SIGNS: Reviewed and were acceptable. GENERAL: The patient is an elderly male, in no apparent distress, speaking in full sentences. HEENT: Normocephalic, atraumatic. Mucous membranes are moist and pink. Good mouth opening noted. Trachea is midline. Good neck mobility. CHEST: S1, S2 irregularly irregular. No murmurs, rubs or gallops were noted. LUNGS: Clear to auscultation bilaterally without appreciable wheezes, rales or rhonchi. ABDOMEN: Soft, nontender, nondistended. Positive bowel sounds. EXTREMITIES: There is no clubbing, cyanosis or edema. ASA Class: II DESCRIPTION OF PROCEDURE: After confirmation of informed consent, the patient's anesthesia plan was reviewed in detail. Etomidate was chosen. Risks and benefits were reviewed and the patient agreed to proceed. At 1205, the patient was his first bolus of etomidate. In total, throughout the entire procedure, the patient required 12 mg of etomidate to facilitate 2 separate attempts at cardioversion, the first of 200 J and the second at 300 J, the latter of which was successful in achieving normal sinus rhythm. The patient was monitored until 1225, at which time he reached his baseline mental status and function. The patient tolerated the procedure well. COMPLICATIONS: None ESTIMATED BLOOD LOSS: None RECOMMENDATIONS: Okay to recover in usual fashion. 9xxxx: Other Procedure See Report - [id number]
== END 2020-07-11 13:35 | disposition home or self-care (01) ==
LOC: CLSP 10:38
PROVIDERS: PCP Internal Medicine; Referring Provider Internal Medicine Cardiovascular Disease; Visit Provider Internal Medicine Cardiovascular Disease
DX: I48.91 Unspecified atrial fibrillation (principal); I25.10 Atherosclerotic heart disease of native coronary artery without angina pectoris; I25.5 Ischemic cardiomyopathy; I10 Essential (primary) hypertension; E78.00 Pure hypercholesterolemia, unspecified; Z79.02 Long term (current) use of antithrombotics/antiplatelets; Z95.5 Presence of coronary angioplasty implant and graft; Z95.810 Presence of automatic (implantable) cardiac defibrillator; Z87.891 Personal history of nicotine dependence
CPT/HCPCS: 36415; 71046; 80048; 92960; 93005; J7040

== ENCOUNTER → 2020-08-03 09:26 | Outpatient (CLI) | payer MEDICARE, SELFPAY ==
[2020-07-26 08:48] VITALS: BMI 29.2
[2020-08-03 11:44] LABS: Cholesterol 163 mg/dL (200); Glucose 116 mg/dL (74-106); High Density Lipoprotein 37 mg/dL; Triglycerides 169 mg/dL; Very Low Density Lipoprotein 34 mg/dL (5-40)
== END ==
PROVIDERS: PCP Internal Medicine
DX: E78.00 Pure hypercholesterolemia, unspecified (principal)
CPT/HCPCS: 36415; 80061; 82947

== ENCOUNTER → 2020-09-22 10:47 | Outpatient (CLI) | payer MEDICARE, SELFPAY ==
[2020-07-26 08:48] VITALS: BMI 29.2
--- NOTE | 2020-09-22 10:52 | ECHOCS_ITS ---
Reason For Study: SOB Procedure This was a 2D Doppler, Color Flow transthoracic echocardiogram. The study was technically difficult. Patient scanned sitting upright due to SOB. Exam performed in department. Left Ventricle Normal LV size. Moderate concentric left ventricular hypertrophy. The estimated ejection fraction is 30 %. Moderately severe segmental systolic dysfunction (see wall motion). [place] : Akinetic. Anterior [place] : Akinetic. Mid-anteroseptal : Akinetic. The rest of the wall segments are hypokinetic. Right Ventricle Normal RV size. ICD or pacer leads identified within the right ventricle. Normal systolic function. Atria The left atrium is moderately enlarged. Normal right atrium. Aortic Valve Trisinus/trileaflet aortic valve. Mild focal aortic valve calcification. Great Vessels Normal aortic root. Pericardium/Pleural No pericardial effusion. Medication 22 gauge I.V. with prn adaptor inserted into right arm. Diluted definity 3ml given slow IV push to enhance endocardial definition. MMode/2D Measurements & Calculations LVIDd: 4.8 cm IVSd: 1.6 cm LVOT diam: 2.1 cm LVIDs: 3.8 cm LVPWd: 1.3 cm LVOT area: 3.3 cm2 FS: 20.5 % Ao root diam: 3.3 cm LAV(MOD-bp): 83.6 ml LA A4 area: 24.9 cm2 LAV(MOD-bp) Indexed: 41.4 ml/m2 LAV(MOD-sp2): 87.7 ml LAV(MOD-sp4): 78.1 ml LA dimension(2D): 4.3 cm Doppler Measurements & Calculations MV E max jimmie: 54.0 cm/sec Lat Peak E' Jimmie: 4.7 cm/sec Med Peak E' Jimmie: 3.2 cm/sec MV A max jimmie: 66.7 cm/sec E/E' lat: 11.4 E/E' med: 17.0 MV E/A: 0.81 Ao V2 max: 185.5 cm/sec LV V1 max: 87.6 cm/sec SV(LVOT): 42.7 ml Ao max P.8 mmHg LV V1 max P.1 mmHg Ao V2 mean: 134.6 cm/sec LV V1 mean P.5 mmHg Ao mean P.0 mmHg LV V1 mean: 56.4 cm/sec Ao V2 VTI: 31.3 cm LV V1 VTI: 12.9 cm МАРИНА(I,D): 1.4 cm2 МАРИНА(V,D): 1.6 cm2 PA V2 max: 109.6 cm/sec Interpretation Summary Normal LV size. Moderate concentric left ventricular hypertrophy. The estimated ejection fraction is 30 %. Moderately severe segmental systolic dysfunction (see wall motion). Contrast injection was performed. Ordering Physician: Jose Ibarra Referring Physician: Perry Olivas M.D. Performed By: Margaret Mckeon RDCS
== END ==
PROVIDERS: PCP Internal Medicine; Referring Provider Internal Medicine Cardiovascular Disease; Visit Provider Internal Medicine Cardiovascular Disease
DX: R06.00 Dyspnea, unspecified (principal); R06.02 Shortness of breath
CPT/HCPCS: 93306; Q9957; A4216; C8929

== ENCOUNTER → 2020-12-05 10:24 | Outpatient (CLI) | payer MEDICARE, SELFPAY ==
[2020-07-26 08:48] VITALS: BMI 29.2
[2020-12-05 11:26] LABS: Cholesterol 281 mg/dL (200); High Density Lipoprotein 47 mg/dL; Triglycerides 192 mg/dL; Very Low Density Lipoprotein 38 mg/dL (5-40)
== END ==
PROVIDERS: PCP Internal Medicine
DX: E78.00 Pure hypercholesterolemia, unspecified (principal)
CPT/HCPCS: 36415; 80061

== ENCOUNTER → 2021-01-05 12:08 | Outpatient (CLI) | payer MEDICARE, SELFPAY ==
[2021-01-05 11:24] VITALS: BMI 30.5
[2021-01-05 13:40] LABS: Absolute Lymphocyte Count 1.14 X10^3/uL (0.83-4.51); Absolute Neutrophil Count 3.6 X10^3/uL (2.0-7.7); Basophil# 0.03 X10^3/uL; Basophil% 0.5 % (0-1); Eosinophil# 0.23 X10^3/uL; Eosinophils% 4.2 % (0-5); Hematocrit 42.7 % (40-54); Hemoglobin 13.8 g/dL (13.0-16.5); Lymphocyte # 1.14 X10^3/ul (0.83-4.51); Lymphocyte % 20.9 % (19-41); Mean Corp Hgb Conc 32.3 g/dL (32-36); Mean Corpuscular Hgb 31.8 pg (27.0-32.0); Mean Corpuscular Volume 98.4 fL (80-94); Mean Platelet Vol. 10.4 fl (6.2-12.0); Monocyte# 0.47 X10^3/uL; Monocyte% 8.6 % (0-10); NRBC Flagged by Analyzer 0 % (0-5); Neutrophil # 3.57 X10^3/uL (2.7-7.7); Neutrophil % 65.4 % (47-70); Platelet Count 142 K/mm3 (150-450); RBC Distribution Width CV 11.9 % (11.6-14.6); RBC Distribution Width SD 42.8 fl (35.1-43.9); Red Blood Count 4.34 M/mm3 (4.6-6.2); White Blood Count 5.5 K/mm3 (4.4-11.0)
[2021-01-05 14:01] LABS: Anion Gap 3 (5-15); BNP,B-Type NATRIURETIC PEPTIDE 318.6 pg/mL (0-100); BUN 37 mg/dL (7-18); BUN/Creat Ratio 15.6 RATIO (10-20); Calcium,Total 9.6 mg/dL (8.5-10.1); Chloride 104 mmol/L (98-107); Creatinine, Serum 2.37 mg/dL (0.70-1.30); EST Glomerular Filtration Rate 28 mL/min (>60); Est Glom Filt Rate - Afr Amer 34 mL/min (>60); Glucose 119 mg/dL (74-106); Potassium 3.8 mmol/L (3.5-5.1); Sodium Level 138 mmol/L (136-145)
== END ==
PROVIDERS: PCP Internal Medicine; Referring Provider Nurse Practitioner Family; Visit Provider Nurse Practitioner Family
DX: I25.5 Ischemic cardiomyopathy (principal); E78.00 Pure hypercholesterolemia, unspecified; I11.0 Hypertensive heart disease with heart failure; I50.43 Acute on chronic combined systolic (congestive) and diastolic (congestive) heart failure; I25.10 Atherosclerotic heart disease of native coronary artery without angina pectoris; R06.00 Dyspnea, unspecified
CPT/HCPCS: 36415; 80048; 83880; 85025

== ENCOUNTER → 2021-02-24 09:10 | Outpatient (CLI) | payer MEDICARE, SELFPAY ==
[2021-02-24 10:13] LABS: AST(SGOT) 15 U/L (15-37); Alanine Aminotransfer ALT/SGPT 25 U/L (16-61); Albumin, Serum 4.1 g/dL (3.2-5.0); Alkaline Phosphatase 76 U/L (45-117); Bilirubin, Direct 0.21 mg/dL (0.00-0.30); Cholesterol 171 mg/dL (200); Globulin 3.5 g/dL (2.2-4.2); High Density Lipoprotein 49 mg/dL; Protein, Total 7.6 g/dL (6.4-8.2); Triglycerides 139 mg/dL; Very Low Density Lipoprotein 28 mg/dL (5-40)
== END ==
PROVIDERS: PCP Internal Medicine; Referring Provider Internal Medicine Cardiovascular Disease; Visit Provider Internal Medicine Cardiovascular Disease
DX: E78.5 Hyperlipidemia, unspecified (principal); E78.00 Pure hypercholesterolemia, unspecified
CPT/HCPCS: 36415; 80061; 80076

== ENCOUNTER → 2021-04-13 10:12 | Outpatient (CLI) | payer MEDICARE, SELFPAY ==
[2021-04-13 11:04] LABS: Cholesterol 149 mg/dL (200); High Density Lipoprotein 43 mg/dL; Triglycerides 154 mg/dL; Very Low Density Lipoprotein 31 mg/dL (5-40)
== END ==
PROVIDERS: PCP Internal Medicine
DX: E78.00 Pure hypercholesterolemia, unspecified (principal)
CPT/HCPCS: 36415; 80061

== ENCOUNTER 2021-08-01 08:49 | Outpatient (CLI) | payer MEDICARE, SELFPAY ==
[2021-08-01 10:11] LABS: Absolute Neutrophil Count 4.1 X10^3/uL (2.0-7.7); Basophil# 0.03 X10^3/uL; Basophil% 0.5 % (0-1); Eosinophil# 0.11 X10^3/uL; Eosinophils% 1.9 % (0-5); Hemoglobin 15.8 g/dL (13.0-16.5); Lymphocyte % 19.3 % (19-41); Mean Corp Hgb Conc 32.2 g/dL (32-36); Mean Corpuscular Hgb 31.8 pg (27.0-32.0); Mean Corpuscular Volume 98.6 fL (80-94); Mean Platelet Vol. 10.9 fl (6.2-12.0); Monocyte# 0.32 X10^3/uL; Monocyte% 5.6 % (0-10); NRBC Flagged by Analyzer 0 % (0-5); Neutrophil # 4.11 X10^3/uL (2.7-7.7); Neutrophil % 72.3 % (47-70); Platelet Count 145 K/mm3 (150-450); RBC Distribution Width CV 12.4 % (11.6-14.6); RBC Distribution Width SD 44.7 fl (35.1-43.9); Red Blood Count 4.97 M/mm3 (4.6-6.2); White Blood Count 5.7 K/mm3 (4.4-11.0)
[2021-08-01 10:55] LABS: AST(SGOT) 16 U/L (15-37); Alanine Aminotransfer ALT/SGPT 28 U/L (16-61); Albumin, Serum 4.1 g/dL (3.2-5.0); Alkaline Phosphatase 76 U/L (45-117); Anion Gap 7 (5-15); BUN 36 mg/dL (7-18); BUN/Creat Ratio 15.5 RATIO (10-20); Bilirubin, Direct 0.18 mg/dL (0.00-0.30); Calcium,Total 9.7 mg/dL (8.5-10.1); Chloride 103 mmol/L (98-107); Cholesterol 171 mg/dL (200); Creatinine, Serum 2.32 mg/dL (0.70-1.30); EST Glomerular Filtration Rate 29 mL/min (>60); Est Glom Filt Rate - Afr Amer 35 mL/min (>60); Globulin 3.9 g/dL (2.2-4.2); Glucose 123 mg/dL (74-106); High Density Lipoprotein 58 mg/dL; Potassium 3.6 mmol/L (3.5-5.1); Sodium Level 141 mmol/L (136-145); T4 Free Direct 0.91 ng/dL (0.76-1.46); Triglycerides 114 mg/dL; Very Low Density Lipoprotein 23 mg/dL (5-40)
[2021-08-01 11:22] LABS: HIV - WCH Non-Reactive (Nonreactive); Hepatitis C Antibody Non-Reactive (Nonreactive)
[2021-08-03 14:10] LABS: PROELU- Albumin, Urine 44.6 % (.); PROELU- Alpha-1-Globulin,Ur 5.8 % (.); PROELU- Alpha-2-Globulin,Ur 14.4 % (.); PROELU- Beta Globulin, Ur 18.4 % (.); PROELU- Gamma Globulin, Ur 16.8 % (.)
[2021-08-03 15:19] LABS: t-Transglutaminase IgA <2 U/mL (0-3)
[2021-08-04 16:38] LABS: Anti-Nuclear Antibody Test Negative (.)
== END 2021-08-01 23:59 | disposition short-term general hospital (02) ==
PROVIDERS: Internal Medicine Cardiovascular Disease; PCP Internal Medicine; Referring Provider Dermatology; Visit Provider Dermatology
DX: E78.00 Pure hypercholesterolemia, unspecified (principal); L29.8 Other pruritus
CPT/HCPCS: 36415; 80048; 80061; 80076; 83516; 84166; 84439; 84443; 85025; 86038; 86703; 86803

== ENCOUNTER 2021-08-25 08:40 | Outpatient (CLI) | payer MEDICARE, SELFPAY ==
--- NOTE | 2021-08-25 08:54 | CT_ITS ---
STUDY: CT LUMBAR SPINE WITH INTRATHECAL CONTRAST (LUMBAR CT MYELOGRAM) REASON FOR EXAM: Male, 85 years old. DDD LUMBAR RADIATION DOSAGE (If Supplied By Facility): CTDIvol = ( 20.70 ) mGy, DLP = ( 653.13 ) mGycm TECHNIQUE: Transaxial images were obtained from the T12 vertebra through the S1 vertebral level, following intrathecal administration of 20 ml of ISOVUE-M 200 contrast material, performed by Dr. Figueredo. Please refer to this physicians technical notes for procedural details. Coronal and sagittal reconstructions were obtained. Individualized dose optimization techniques were used for this CT. COMPARISON: None. FINDINGS: Normal lumbar lordosis. There is a dextro-scoliosis of the lumbar spine. Normal vertebrae of the lumbar spine. There is dependent layering of contrast material in the distal thecal sac. The conus medullaris terminates in a normal position at the L1-L2 level. There is no demonstrated cauda equina nerve root abnormality or intraspinal mass. L1-2: There is mild degree of disc space narrowing. Minimal retrolisthesis of L1 on L2 causing deformity of the central portion of the thecal sac. There is evidence of a right paracentral disc herniation causing deformity of the thecal sac on the right side as well as narrowing of the right lateral recess. L2-3: Marked degree of disc space narrowing with spondylosis. Facet joint osteoarthritis and hypertrophy. Moderate degree of spinal stenosis caused by combination of hypertrophy of the ligamenta flava as well as central disc bulge and posterior spondylosis. L3-4: Marked degree of disc space narrowing and disc degeneration. Facet joint osteoarthritis. Moderate to marked degree of spinal stenosis caused by combination of diffuse posterior disc bulge, hypertrophy of the ligamenta flava and facet joint osteoarthritis. L4-5: Mild degree of disc space narrowing. Facet joint osteoarthritis. No significant stenosis seen. L5-S1: Moderate degree of disc space narrowing. No evidence of stenosis. Normal visualized sacroiliac joints. Atherosclerotic calcification of the abdominal aorta. CT/Spine Lumbar WITH Contrast IMPRESSION: Spinal stenosis at the L2-L3 and L3-L4 levels as described. Mild spinal stenosis at the L1-L2 level. Electronically Signed: Evelio Figueredo MD at 14:13 EST ,
[2021-08-25 09:15] VITALS: TEMP 36.6; BMI 28.8
[2021-08-25] MEDS: Lidocaine 2% (5ml sdv) 5 ML VIAL.MPF INFILT (09:45)
--- NOTE | 2021-08-25 09:45 | RAD_ITS ---
PROCEDURE: LUMBAR MYELOGRAM DATE OF EXAMINATION: 08/25/2021. INDICATION: Male, 85 years old. Low back pain. PHYSICIAN: Evelio Figueredo M.D. CONSENT: The patient''s history and physical findings were reviewed. The lumbar myelogram procedure was discussed with the patient prior to signing a consent. SEDATION: Local anesthesia with 3 mL of 1% lidocaine was used. FLUOROSCOPY TIME (if supplied): (2:06) minutes/seconds. Injection Information: 20 cc of ISOVUE M200. Number of images obtained: 4 TECHNIQUE: Digital fluoroscopy was used to identify a safe approach for the lumbar myelogram. The back was prepped and draped in usual fashion. Local anesthesia was utilized. Under fluoroscopic guidance a 22-gauge spinal needle was inserted into the spinal canal at the L2-L3 level. Clear spinal fluid was seen with a sample sent to the laboratory. 20 mL of Isovue 200 M was injected into the spinal canal. There is good opacification of the spinal fluid. Multilevel disc space narrowing and spondylosis. Multilevel spinal stenosis. CT scan will follow. RAD/Lumbar Myelogram IMPRESSION: Multilevel spinal stenosis. Multilevel disc space narrowing. CT scan will follow. Electronically Signed: Evelio Figueredo MD at 10:41 EST ,
[2021-08-25 10:35] VITALS: BP 112/68; PULSE 70; RESP 20; O2SAT 96
--- NOTE | 2021-08-25 10:36 | NURSING ---
pt resting comfortably supine. at bedside. deny needs.
[2021-08-25 11:25] VITALS: BP 116/68; PULSE 70; RESP 18; O2SAT 95
--- NOTE | 2021-08-25 11:26 | NURSING ---
Pt resting comfortably. Given remote to watch tv while supine. at bedside. Aware CT at 1215.
[2021-08-25 12:44] VITALS: BP 126/79; PULSE 70; RESP 18; O2SAT 96
== END 2021-08-25 23:59 | disposition home or self-care (01) ==
PROVIDERS: PCP Internal Medicine; Visit Provider Physician Assistant
DX: L29.8 Other pruritus (principal); M51.36 Other intervertebral disc degeneration, lumbar region
CPT/HCPCS: 62304; 72132

== ENCOUNTER → 2021-12-19 | Outpatient (CLI) | payer MEDICARE, SELFPAY ==
--- NOTE | 2021-12-19 13:42 | ECHOCS_ITS ---
Reason For Study: Dyspnea/SOB Procedure This was a 2D Doppler, Color Flow transthoracic echocardiogram. The study was technically difficult. Contrast injection was performed. Exam performed in department. Left Ventricle Normal LV size. Moderate concentric left ventricular hypertrophy. The estimated ejection fraction is 35 %. There are regional wall motion abnormalities as specified. Right Ventricle Normal RV size. Normal systolic function. Atria Normal left atrium. Normal right atrium. Aortic Valve The aortic valve is not well visualized. Great Vessels Normal aortic root. Pericardium/Pleural No pericardial effusion. Medication 20 gauge I.V. with prn adaptor inserted into right arm. Diluted definity 3ml given slow IV push to enhance endocardial definition. MMode/2D Measurements & Calculations LVIDd: 4.5 cm IVSd: 1.4 cm LVOT diam: 2.1 cm LVIDs: 3.1 cm LVPWd: 1.5 cm LVOT area: 3.6 cm2 FS: 31.0 % LA dimension: 4.9 cm LAV(MOD-sp4): 75.0 ml LA A4 area: 24.2 cm2 RA A4 area: 35.8 cm2 Time Measurements MV dec time: 0.19 sec Doppler Measurements & Calculations MV E max camille: 83.9 cm/sec MV V2 max: 101.4 cm/sec MV P1/2t max camille: 101.9 cm/sec MV A max camille: 27.1 cm/sec MV max P.1 mmHg MV P1/2t: 94.6 msec MV E/A: 3.1 MV V2 mean: 44.5 cm/sec MV dec slope: 315.7 cm/sec2 MV mean P.1 mmHg MVA(P1/2t): 2.3 cm2 MV V2 VTI: 25.4 cm MVA(VTI): 2.2 cm2 Ao V2 max: 205.9 cm/sec LV V1 max: 85.1 cm/sec SV(LVOT): 56.6 ml Ao max P.0 mmHg LV V1 max P.9 mmHg Ao V2 mean: 134.3 cm/sec LV V1 mean P.4 mmHg Ao mean P.5 mmHg LV V1 mean: 55.7 cm/sec Ao V2 VTI: 37.0 cm LV V1 VTI: 15.8 cm МАРИНА(I,D): 1.5 cm2 МАРИНА(V,D): 1.5 cm2 PA V2 max: 75.1 cm/sec ECHO/Echo Complete W/ Contrast Interpretation Summary Normal LV size. The estimated ejection fraction is 35 %. Moderate concentric left ventricular hypertrophy. Compared to previous study, the left ventricular systolic function is the same. . Ordering Physician: Jose Ibarra Referring Physician: Perry Olivas M.D. Performed By: Chase Mansfield RCS
== END | disposition home or self-care (01) ==
LOC: CVS 13:34
PROVIDERS: PCP Internal Medicine; Referring Provider Internal Medicine Cardiovascular Disease; Visit Provider Internal Medicine Cardiovascular Disease
DX: R06.00 Dyspnea, unspecified (principal)
CPT/HCPCS: 93306; Q9957; A4216; C8929

== ENCOUNTER → 2022-01-26 | Outpatient (CLI) | payer MEDICARE, SELFPAY ==
[2022-01-26 11:11] LABS: AST(SGOT) 15 U/L (15-37); Alanine Aminotransfer ALT/SGPT 26 U/L (16-61); Albumin, Serum 3.6 g/dL (3.2-5.0); Alkaline Phosphatase 71 U/L (45-117); Bilirubin, Direct 0.18 mg/dL (0.00-0.30); Cholesterol 151 mg/dL (200); Globulin 3.5 g/dL (2.2-4.2); High Density Lipoprotein 45 mg/dL; Protein, Total 7.1 g/dL (6.4-8.2); Triglycerides 148 mg/dL; Very Low Density Lipoprotein 30 mg/dL (5-40)
== END | disposition home or self-care (01) ==
PROVIDERS: Internal Medicine Cardiovascular Disease; PCP Internal Medicine
DX: E78.5 Hyperlipidemia, unspecified (principal); I25.5 Ischemic cardiomyopathy
CPT/HCPCS: 36415; 80061; 80076

== ENCOUNTER → 2022-03-01 | Outpatient (CLI) | payer MEDICARE, SELFPAY ==
--- NOTE | 2022-03-01 16:10 | RAD_ITS ---
STUDY: X-RAY CHEST REASON FOR EXAM: Male, 86 years old. SOB on minimal exertion, edema, CHF TECHNIQUE: XR Chest 2 Views COMPARISON: 1.4 FINDINGS: There is no demonstrated pleural abnormality. There is a left sided pacemaker batterypack. There is borderline cardiomegaly. Normal mediastinum and maude. Normal visualized pulmonary arteries. There is atherosclerotic calcification of the aortic arch with tortuosity. There are diffuse degenerative changes of the visualized thoracic spine. There is degenerative osteoarthritis of the bilateral shoulders. There is no demonstrated abnormality of the visualized soft tissue structures of the upper abdomen. RAD/Chest PA and Lateral IMPRESSION: There are no acute findings. Electronically Signed: Ulysses Suarez MD at 16:24 EDT ,
[2022-03-01 17:06] LABS: Hematocrit 41.2 % (40-54); Hemoglobin 13.6 g/dL (13.0-16.5); Mean Corpuscular Hgb 33.4 pg (27.0-32.0); Mean Corpuscular Volume 101.2 fL (80-94); Mean Platelet Vol. 11.3 fl (6.2-12.0); Platelet Count 145 K/mm3 (150-450); RBC Distribution Width CV 13.2 % (11.6-14.6); RBC Distribution Width SD 49.3 fl (35.1-43.9); Red Blood Count 4.07 M/mm3 (4.6-6.2); White Blood Count 4.7 K/mm3 (4.4-11.0)
[2022-03-01 17:41] LABS: ALB/GLOB Ratio 0.9 RATIO (0.9-2.4); AST(SGOT) 16 U/L (15-37); Alanine Aminotransfer ALT/SGPT 23 U/L (16-61); Albumin, Serum 3.4 g/dL (3.2-5.0); Alkaline Phosphatase 83 U/L (45-117); Anion Gap 7 (5-15); BUN 29 mg/dL (7-18); BUN/Creat Ratio 11.7 RATIO (10-20); Calcium,Total 9.3 mg/dL (8.5-10.1); Chloride 108 mmol/L (98-107); Creatinine, Serum 2.47 mg/dL (0.70-1.30); EST Glomerular Filtration Rate 27 mL/min (>60); Est Glom Filt Rate - Afr Amer 32 mL/min (>60); Globulin 3.6 g/dL (2.2-4.2); Glucose 139 mg/dL (74-106); Potassium 3.6 mmol/L (3.5-5.1); Sodium Level 144 mmol/L (136-145)
[2022-03-01 17:58] LABS: BNP,B-Type NATRIURETIC PEPTIDE 568.7 pg/mL (0-100)
== END | disposition home or self-care (01) ==
LOC: LAB 15:49
PROVIDERS: PCP Internal Medicine; Referring Provider Nurse Practitioner Family; Visit Provider Nurse Practitioner Family
DX: R06.02 Shortness of breath (principal); I50.43 Acute on chronic combined systolic (congestive) and diastolic (congestive) heart failure; I25.10 Atherosclerotic heart disease of native coronary artery without angina pectoris; I25.5 Ischemic cardiomyopathy; R60.9 Edema, unspecified; Z95.810 Presence of automatic (implantable) cardiac defibrillator; Z79.01 Long term (current) use of anticoagulants
CPT/HCPCS: 36415; 71046; 80053; 83880; 85027

== ENCOUNTER → 2022-03-09 | Outpatient (CLI) | payer MEDICARE, SELFPAY ==
[2022-03-09 13:48] LABS: Anion Gap 6 (5-15); BUN 30 mg/dL (7-18); BUN/Creat Ratio 13.8 RATIO (10-20); Calcium,Total 9.7 mg/dL (8.5-10.1); Chloride 106 mmol/L (98-107); Creatinine, Serum 2.18 mg/dL (0.70-1.30); EST Glomerular Filtration Rate 31 mL/min (>60); Est Glom Filt Rate - Afr Amer 37 mL/min (>60); Glucose 163 mg/dL (74-106); Potassium 3.4 mmol/L (3.5-5.1); Sodium Level 144 mmol/L (136-145)
[2022-03-09 13:51] LABS: BNP,B-Type NATRIURETIC PEPTIDE 557.9 pg/mL (0-100)
== END | disposition home or self-care (01) ==
LOC: LAB 13:10
PROVIDERS: PCP Internal Medicine; Referring Provider Nurse Practitioner Family; Visit Provider Nurse Practitioner Family
DX: R06.02 Shortness of breath (principal); I50.43 Acute on chronic combined systolic (congestive) and diastolic (congestive) heart failure; E11.22 Type 2 diabetes mellitus with diabetic chronic kidney disease; N18.30 Chronic kidney disease, stage 3 unspecified
CPT/HCPCS: 36415; 80048; 83880

== ENCOUNTER → 2022-03-26 | Outpatient (CLI) | payer MEDICARE, SELFPAY ==
[2022-03-26 09:16] LABS: Cholesterol 156 mg/dL (200); High Density Lipoprotein 43 mg/dL; Triglycerides 168 mg/dL; Very Low Density Lipoprotein 34 mg/dL (5-40)
== END | disposition home or self-care (01) ==
PROVIDERS: PCP Internal Medicine
DX: E78.00 Pure hypercholesterolemia, unspecified (principal); I25.5 Ischemic cardiomyopathy
CPT/HCPCS: 36415; 80061

== ENCOUNTER 2022-04-13 08:00 | Emergency (ER) | payer MEDICARE, SELFPAY ==
[2022-04-13 08:01] VITALS: BP 109/64; PULSE 67; RESP 18; TEMP 36.6; BMI 63.6
--- NOTE | 2022-04-13 08:45 | EDS_ITS ---
HPI HPI - Fall History of Present Illness Chief Complaint: Fall Informant: patient Occured/Mechanism Occurred: Today Mechanism/Context: Yes same level fall Pain/Injury Location: Bilateral knees, low back and sacrum Quality of Pain: Aching Worsened by: Nothing Relieved by: Nothing Associated Symptoms Associated Symptoms: Positive for Weakness and Inability to ambulate; Negative for Parasthesias, Loss of consciousness or Amnesia Narrative Narrative: Patient presents after a fall that occurred this morning. Patient states that he heard his 's car alarm going off and went out to the garage to check on it. Patient states he slipped on the garage floor and fell. Patient states he landed on his tailbone. Patient states that he was having difficulty getting up. Patient states he rolled over and tried to crawl on his hands and knees. Patient states he was able to get to a step. Patient states he was sitting on the step for approximately 30 minutes. Patient denies hitting his head. Patient denies any loss of consciousness. Patient is unsure of his last tetanus. Patient admits to some generalized weakness. 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 Overweight Paroxysmal atrial flutter Secondary pulmonary arterial hypertension Syncope Type 2 diabetes mellitus without complications Home Medications aspirin 81 mg chewable tablet 81 mg PO DAILY@0800 06/30/17 [History Last Taken 08/24/21] coenzyme Q10 100 mg capsule (Co Q-10) 100 mg PO DAILY 11/13/18 [History Last Taken Unknown] sertraline 50 mg tablet 50 mg PO DAILY #60 tabs 11/13/18 [Rx Last Taken Unknown] Handicap Plaquard #1 ea 05/19/19 [Rx Last Taken Unknown] cholecalciferol (vitamin D3) 125 mcg (5,000 unit) tablet 125 mcg PO DAILY 01/05/21 [History Last Taken Unknown] clobetasol 0.05 % scalp solution 1 applic topical QAM AND QPM PRN LESION 01/05/21 [History Last Taken Unknown] rosuvastatin 10 mg tablet 10 mg PO DAILY 01/05/21 [History Last Taken Unknown] vitamins A,C,V-wdzy-wscerb 14,320 unit-226 mg-200 unit capsule (PreserVision AREDS) 1 cap PO BID 01/05/21 [History Last Taken Unknown] nitroglycerin 0.4 mg sublingual tablet 0.4 mg sublingual Q5-15M PRN Cardi ac/Chest Pain #25 tabs 02/17/21 [Rx Last Taken Unknown] isosorbide mononitrate 60 mg tablet,extended release 24 hr 60 mg PO DAILY #90 tabs 04/26/21 [Rx Last Taken Unknown] metoprolol succinate 25 mg tablet,extended release 24 hr 25 mg PO DAILY Dose was decreased #90 tabs 07/11/21 [Rx Last Taken Unknown] apixaban 2.5 mg tablet (Eliquis) 2.5 mg PO BID Awaiting mail in RX, Pt .is OUT of Med #14 tabs 09/06/21 [Rx Last Taken Unknown] folic acid 1 mg tablet 1 mg PO QDAY #90 tabs 09/27/21 [Rx Last Taken Unknown] sacubitril 24 mg-valsartan 26 mg tablet 1 tab PO BID #180 tabs 11/15/21 [Rx Last Taken Unknown] gabapentin 100 mg capsule 100 mg PO QHS 11/23/21 [History Last Taken Unknown] naltrexone 8 mg-bupropion 90 mg tablet,extended release 1 tab PO QAM 11/23/21 [History Last Taken Unknown] furosemide 40 mg tablet (Lasix) 40 mg PO .COMPLEX this is a dose increase 03/20/22 [History Last Taken Unknown] Allergy/AdvReac Type Severity Reaction Status Date / Time clarithromycin [From Biaxin] Allergy PT UNSURE Verified 04/13/22 08:22 OF REACTION quinapril Allergy Angioedema Verified 04/13/22 08:20 Rtyrjev-ROW-LrH Reductase Allergy Hives and Verified 04/13/22 08:20 Inhibitor myalgias [Haylhfv-Gjy-Nrn Reductase Inhibitor] valsartan [From Diovan] Allergy PT UNSURE Verified 04/13/22 08:21 OF REACTION ezetimibe [From Zetia] AdvReac diarrhea Verified 04/13/22 08:20 simvastatin [From Vytorin] AdvReac PT UNSURE Verified 04/13/22 08:22 OF REACTION Family History Mother Diabetes Sister Cancer pancreatic Surgical History History of cardioversion (07/11/20) History of coronary artery stent placement (08/01/17) Presence of automatic implantable cardioverter-defibrillator (07/05/17) Presence of biventricular implantable cardioverter-defibrillator (ICD) (01/08/19) Social History Smoking Status: Never smoker how long ago did patient quit smoking: May 1988 alcohol intake: current alcohol intake frequency: holidays/special occasions only caffeine: No ROS ROS ED Constitutional Constitutional ED: Denies chills or fever(s) Eyes Eyes: Denies blurry vision or change in vision ENT ENT ED: Denies rhinorrhea or sore throat Cardiovascular Cardiovascular: Denies chest pain or palpitations Respiratory/Chest Respiratory/Chest: Denies cough or dyspnea Gastrointestinal Gastrointestinal: Denies nausea or vomiting Genitourinary Genitourinary ED: Denies dysuria or hematuria Musculoskeletal Musculoskeletal: Reports back pain; Denies neck pain Integumentary Reports Abrasions; Denies abscess or rash Neurologic Neurologic: Reports weakness; Denies headache(s) Allergic/Immunologic Allergic/Immunologic ED: Denies mouth swelling or urticaria EXAM Physical Exam Const Vital Signs: 04/13/22 08:01 04/13/22 08:24 Temperature 97.8 F Temperature Source Temporal Pulse Rate 67 Respiratory Rate 18 Respiratory Effort Normal Respiratory Depth Normal Respiratory Pattern Normal Blood Pressure 109/64 Blood Pressure Mean 79 Oxygen Delivery Method Room Air Room Air Positive well nourished and well developed General Appearance ED: well developed and NAD HEENT Reports normocephalic atraumatic Neck full ROM and supple Resp normal respiratory effort and clear to auscultation bilaterally Cardio regular rate and regular rhythm GI non-tender Palpation: soft Neuro oriented x3, CN's II-XII intact bilaterally, moves all extremities, no focal motor deficits and no sensory deficits noted Sensorium / Orientation: alert Motor Exam: strength 5/5 throughout Psych mental status grossly normal MDM MDM MDM Narrative Medical decision making narrative: CT scan of the brain was obtained. There is no acute intracranial abnormality. There are chronic involutional changes. This was interpreted by the radiologist and reviewed by myself. X-ray of the right knee was obtained. There are 4 views. On my interpretation, there is no acute fracture or dislocation. There is some degenerative joint changes noted in the medial compartment. Radiologist also interpreted the x-rays and agrees. X-rays of the left knee were obtained. There are 4 views. On my interpretation, there is no acute fracture or dislocation. There are some degenerative joint changes noted. Radiologist also interpreted the x-rays and agrees. X-rays of the lumbar spine were obtained. There are 3 views. On my interpretation, there is no acute fracture or spondylolisthesis. There are degenerative changes noted. Radiologist also interpreted the x-rays and agrees. Patient was able to stand and ambulate with a walker. Patient is currently receiving outpatient physical therapy. Patient was instructed to continue with this. Patient was instructed to follow-up with his primary care physician and pain management physician as scheduled. Patient understood and was agreeable with the plan. All questions were answered. Radiography Diagnostic Testing: Clinical Impression(s) from Imaging Studies Knee X-Ray 04/13/22 08:49 IMPRESSION: Marked degree of joint space narrowing involving the medial compartment of the knee joint. Electronically Signed: Evelio Figueredo MD at 9:42 EDT , Brain CT 04/13/22 08:50 IMPRESSION: Chronic involutional changes of the brain. Stable 1.1 cm x 1.2 cm rounded hypodensity in the posterior right lateral cerebellar hemisphere. Electronically Signed: Evelio Figueredo MD at 9:19 EDT , Lumbar Spine X-Ray 04/13/22 08:50 IMPRESSION: Degenerative changes of the spine, as detailed above. Electronically Signed: Evelio Figueredo MD at 9:44 EDT , Knee X-Ray 04/13/22 09:13 IMPRESSION: Degenerative arthrosis. Electronically Signed: Evelio Figueredo MD at 9:43 EDT , Discharge Plan Triage Chief Complaint: Fall ED Provider: Fernando Mckeon Dx/Rx/DC Orders Clinical Impression: Fall, Contusion of left knee, initial encounter, Contusion of right knee, initial encounter, Lumbosacral strain Instructions: ED Back Sprain/Strain, ED Contusion, Lower Extremity, ED Fall Prevention Prescriptions: No Action coenzyme Q10 [Co Q-10] 100 mg capsule 100 mg PO DAILY sertraline 50 mg tablet 50 mg PO DAILY Qty: 60 3RF (DME) Handicap Plaquard Qty: 1 0RF Dose Instruction: As directed Rx Instructions: Disability will last 4 years Expires 05/19/2023 rosuvastatin 10 mg tablet 10 mg PO DAILY clobetasol 0.05 % solution 1 applic topical QAM AND QPM PRN (Reason: LESION) cholecalciferol (vitamin D3) 125 mcg (5,000 unit) tablet 125 mcg PO DAILY PreserVision AREDS 14,320-226-200 pnit-mx-rhhv capsule 1 cap PO BID nitroglycerin 0.4 mg tablet, sublingual 0.4 mg SUBLINGUAL Q5-15M PRN (Reason: Cardiac/Chest Pain) Qty: 25 3RF gabapentin 100 mg capsule 100 mg PO QHS naltrexone-bupropion 8-90 mg tablet extended release 1 tab PO QAM furosemide [Lasix] 40 mg tablet 40 mg PO .COMPLEX Rx Instructions: 40 mg PO 80 mg (2 tablets) in the am and 40 mg (1 tablet) 4 hours later; aspirin 81 MG tablet,chewable 81 mg PO DAILY@0800 isosorbide mononitrate 60 mg tablet extended release 24 hr 60 mg PO DAILY Qty: 90 4RF metoprolol succinate 25 mg tablet extended release 24 hr 25 mg PO DAILY Qty: 90 3RF Eliquis 2.5 mg tablet 2.5 mg PO BID Qty: 14 0RF folic acid 1 mg tablet 1 mg PO QDAY Qty: 90 3RF sacubitril-valsartan 24-26 mg tablet 1 tab PO BID Qty: 180 3RF Primary Care Provider: Perry Olivas Referrals: Paul Carney MD [Med Staff - Active Staff] - Keep Maddie appointment Perry Olivas MD [Primary Care Provider] - 3-5 Days Disposition Disposition: Home, Self Care
--- NOTE | 2022-04-13 08:49 | RAD_ITS ---
STUDY: X-RAY - RIGHT KNEE REASON FOR EXAM: Male, 86 years old. Anterior knee abrasions following a fall. TECHNIQUE: 4 view(s) of the knee. COMPARISON: None. FINDINGS: Normal visualized distal femur. Normal visualized proximal tibia and fibula. Normal proximal tibiofibular articulation. There is severe degenerative arthrosis of the medial femorotibial compartment with severe joint space narrowing. Normal lateral femorotibial compartment. There is mild degenerative arthrosis of the patellofemoral articulation. Tiny joint effusion. Vascular calcification. RAD/Knee 4 or More Views IMPRESSION: Marked degree of joint space narrowing involving the medial compartment of the knee joint. Electronically Signed: Evelio Figueredo MD at 9:42 EDT ,
--- NOTE | 2022-04-13 08:50 | CT_ITS ---
STUDY: CT BRAIN WITHOUT CONTRAST REASON FOR EXAM: Male, 86 years old. Injury/Pain RADIATION DOSAGE (If Supplied By Facility): CTDIvol = ( 44.99 ) mGy, DLP = ( 846.73 ) mGycm TECHNIQUE: Transaxial CT imaging of the brain was performed without administration of intravenous contrast material. Individualized dose optimization techniques were used for this CT. COMPARISON: Comparison is made with prior study dated 06/30/2017. FINDINGS: Normal soft tissue structures. Normal calvarium. There is mild cerebral atrophy with widening of the extra-axial spaces and ventricular dilatation. There are areas of decreased attenuation within the white matter tracts of the supratentorial brain, consistent with microvascular disease changes. Normal basal ganglia and thalami. Normal brainstem. There is mild cerebellar atrophy. There is a 1.1 cm by 1.2 cm rounded hypodensity in the posterior right lateral cerebellar hemisphere. This is unchanged. There is no intracranial hemorrhage. There are no findings of an acute ischemic infarction. Normal visualized paranasal sinuses. CT/Brain/Head without Contrast IMPRESSION: Chronic involutional changes of the brain. Stable 1.1 cm x 1.2 cm rounded hypodensity in the posterior right lateral cerebellar hemisphere. Electronically Signed: Evelio Figueredo MD at 9:19 EDT ,
--- NOTE | 2022-04-13 08:50 | RAD_ITS ---
STUDY: X-RAY - LUMBAR SPINE REASON FOR EXAM: Male, 86 years old. Low back pain following a fall. TECHNIQUE: 3 view(s) of the lumbar spine were obtained. COMPARISON: None FINDINGS: Normal lumbar lordosis. There is a dextroscoliosis of the lumbar spine. There is a normal alignment of the vertebrae. There is multilevel endplate spondylosis of the lumbar vertebrae. There is multi-level degenerative disc disease with multi-level disc space narrowing. There is atherosclerotic calcification of the abdominal aorta without a demonstrated aneurysm. RAD/Lumbar Spine 2 or 3 Views IMPRESSION: Degenerative changes of the spine, as detailed above. Electronically Signed: Evelio Figueredo MD at 9:44 EDT ,
[2022-04-13] MEDS: Diphth,Pertuss(Acell),Tet Vac 0.5 ML Vial IM (08:57)
--- NOTE | 2022-04-13 09:13 | RAD_ITS ---
STUDY: X-RAY - LEFT KNEE REASON FOR EXAM: Male, 86 years old. Anterior abrasions due to a fall. TECHNIQUE: 4 view(s) of the knee. COMPARISON: None. FINDINGS: Normal visualized distal femur. Normal visualized proximal tibia and fibula. Normal proximal tibiofibular articulation. There is severe degenerative arthrosis of the medial femorotibial compartment with severe joint space narrowing. Normal lateral femorotibial compartment. There is mild degenerative arthrosis of the patellofemoral articulation. Vascular calcifications. RAD/Knee 4 or More Views IMPRESSION: Degenerative arthrosis. Electronically Signed: Evelio Figueredo MD at 9:43 EDT ,
[2022-04-13 11:37] VITALS: BP 132/74; PULSE 74; RESP 16; O2SAT 99
== END 2022-04-13 11:38 | disposition home or self-care (01) ==
PROVIDERS: Emergency Provider Emergency Medicine; PCP Internal Medicine; Visit Provider Emergency Medicine
DX: S39.012A Strain of muscle, fascia and tendon of lower back, initial encounter (principal); I50.43 Acute on chronic combined systolic (congestive) and diastolic (congestive) heart failure; I13.0 Hypertensive heart and chronic kidney disease with heart failure and stage 1 through stage 4 chronic kidney disease, or unspecified chronic kidney disease; E11.22 Type 2 diabetes mellitus with diabetic chronic kidney disease; S80.01XA Contusion of right knee, initial encounter; I25.10 Atherosclerotic heart disease of native coronary artery without angina pectoris; E78.5 Hyperlipidemia, unspecified; N18.9 Chronic kidney disease, unspecified; S80.02XA Contusion of left knee, initial encounter; W01.0XXA Fall on same level from slipping, tripping and stumbling without subsequent striking against object, initial encounter; Z79.82 Long term (current) use of aspirin; Z79.899 Other long term (current) drug therapy; Z23 Encounter for immunization
CPT/HCPCS: 70450; 72100; 73564; 90715; 99283

== ENCOUNTER 2022-05-21 12:43 | Observation (INO) | payer MEDICARE, SELFPAY ==
[2022-05-21] VITALS (8 sets, daily range): BP systolic 86–122; BP diastolic 46–77; PULSE 69–82; RESP 16–30; TEMP 36.9–37.7; O2SAT 92–96; BMI 28.0; BMI 29.3
--- NOTE | 2022-05-21 14:15 | EDS_ITS ---
HPI HPI - Fall History of Present Illness Chief Complaint: Fall Narrative Narrative: 86-year-old with past medical history of atrial fibrillation, on Eliquis, has congestive heart failure and a pacemaker presents with generalized weakness status post fall. Family states that he is at home and he was walking to the garage into his house, lost his balance and fell off the stairs. He hit his left side and bruised a rib. He denies hitting his head or loss of c onsciousness. He is having problems with generalized weakness and cannot push himself up to get up off the garage floor. His son had to help him. They were concerned because he had another fall this morning at 230, but was uninjured at that time. They state that he has been generally weak for weeks to months and have no home health care. They were concerned because of the bruising of his ribs, and his weakness. His son states that he is only using 20% of his heart. He does take a diuretic. He presents for evaluation of his bruised left ribs and weakness and inability to push himself up. 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 Overweight Paroxysmal atrial flutter Secondary pulmonary arterial hypertension Syncope Type 2 diabetes mellitus without complications Home Medications aspirin 81 mg chewable tablet 81 mg PO DAILY@0800 06/30/17 [History Last Taken 08/24/21] coenzyme Q10 100 mg capsule (Co Q-10) 100 mg PO DAILY 11/13/18 [History Last Taken Unknown] sertraline 50 mg tablet 50 mg PO DAILY #60 tabs 11/13/18 [Rx Last Taken Unknown] Handicap Plaquard #1 ea 05/19/19 [Rx Last Taken Unknown] cholecalciferol (vitamin D3) 125 mcg (5,000 unit) tablet 125 mcg PO DAILY 01/05/21 [History Last Taken Unknown] clobetasol 0.05 % scalp solution 1 applic topical QAM AND QPM PRN LESION 01/05/21 [History Last Taken Unknown] rosuvastatin 10 mg tablet 10 mg PO DAILY 01/05/21 [History Last Taken Unknown] vitamins A,C,Q-pxro-hkzkgj 14,320 unit-226 mg-200 unit capsule (PreserVision AREDS) 1 cap PO BID 01/05/21 [History Last Taken Unknown] nitroglycerin 0.4 mg sublingual tablet 0.4 mg sublingual Q5-15M PRN Cardiac/Chest Pain #25 tabs 02/17/21 [Rx Last Taken Unknown] isosorbide mononitrate 60 mg tablet,extended release 24 hr 60 mg PO DAILY #90 tabs 04/26/21 [Rx Last Taken Unknown] metoprolol succinate 25 mg tablet,extended release 24 hr 25 mg PO DAILY Dose was decreased #90 tabs 07/11/21 [Rx Last Taken Unknown] folic acid 1 mg tablet 1 mg PO QDAY #90 tabs 09/27/21 [Rx Last Taken Unknown] sacubitril 24 mg-valsartan 26 mg tablet 1 tab PO BID #180 tabs 11/15/21 [Rx Last Taken Unknown] gabapentin 100 mg capsule 100 mg PO QHS 11/23/21 [History Last Taken Unknown] naltrexone 8 mg-bupropion 90 mg tablet,extended release 1 tab PO QAM 11/23/21 [History Last Taken Unknown] furosemide 40 mg tablet (Lasix) 40 mg PO .COMPLEX this is a dose increase 03/20/22 [History Last Taken Unknown] apixaban 2.5 mg tablet (Eliquis) See Rx Instructions .Route .COMPLEX #180 tabs 05/14/22 [Rx Last Taken Unknown] Allergy/AdvReac Type Severity Reaction Status Date / Time clarithromycin [From Biaxin] Allergy PT UNSURE Verified 05/21/22 12:53 OF REACTION quinapril Allergy Angioedema Verified 05/21/22 12:53 [id number]-[id number]-RwG Reductase Allergy Hives and Verified 05/21/22 12:53 Inhibitor myalgias [Dsegzzq-Lln-Eua Reductase Inhibitor] valsartan [From Diovan] Allergy PT UNSURE Verified 05/21/22 12:53 OF REACTION ezetimibe [From Zetia] AdvReac diarrhea Verified 05/21/22 12:53 simvastatin [From Vytorin] AdvReac PT UNSURE Verified 05/21/22 12:53 OF REACTION Family History Mother Diabetes Sister Cancer pancreatic Surgical History History of cardioversion (07/11/20) History of coronary artery stent placement (08/01/17) Presence of automatic implantable cardioverter-defibrillator (07/05/17) Presence of biventricular implantable cardioverter-defibrillator (ICD) (01/08/19) Social History Smoking Status: Never smoker how long ago did patient quit smoking: May 1988 alcohol intake: current alcohol intake frequency: holidays/special occasions only caffeine: No ROS ROS ED ROS Narrative Constitutional: No fever, no chills. HEENT: No sore throat. No neck pain. No loss of vision. No rhinorrhea. Cardiovascular: No chest pain. Positive left rib bruising. No palpitations. No pedal edema. Respiratory: Positive cough, no shortness of breath. Reported wheezing this morning according to his . Abdominal: No abdominal pain. No nausea. No vomiting. Genitourinary: No dysuria. No hematuria. Musculoskeletal: No myalgias. No arthralgias. Neurologic: No headaches. No dizziness. No lightheadedness. Generalized weakness, unable to push himself up using hands. Skin: No rash. No change in color. Psychiatric: No depression. No anxiety. EXAM Physical Exam Narrative Exam Narrative: Afebrile. Vital signs noted. HEENT: Normocephalic. Atraumatic. PERRL, EOMI. Neck soft and supple. No point tenderness or step off. Cardiovascular: Regular rate and rhythm. No murmurs, rubs, or gallops appreciated. Respiratory: No tachypnea. Expiratory wheezing, no stridor occasional bibasilar rales. Positive ecchymosis left mid ribs and axillary midline, no crepitance, no exquisite tenderness. Gastrointestinal: Abdomen soft, nontender, with normoactive bowel sounds. No rebound or guarding. Neurological: Awake. Alert. Nonfocal, nonlateralizing. Skin: No rash. Normal color. No pallor. Musculoskeletal: No pedal edema. Full range of motion extremities. Const Vital Signs: 05/21/22 12:54 05/21/22 14:46 05/21/22 14:53 Temperature 98.8 F Temperature Source Temporal Pulse Rate 70 70 Respiratory Rate 16 18 Respiratory Effort Normal Blood Pressure 86/46 L 117/56 L Blood Pressure Mean 59 76 Pulse Ox 94 96 Oxygen Delivery Method Room Air Room Air MDM MDM MDM Narrative Medical decision making narrative: Comprehensive work-up was pursued. I do not feel CT of the brain or neck is indicated as he states that he did not hit his head or pass out, denies any headache. He has no head injury. I will obtain CT of the chest to look for rib fracture and partially to evaluate his lungs, along with basic laboratory work including CBC, troponin, CMP, BNP and UA were also obtained. He reportedly had a low blood pressure of 86/46 in triage, but that was approximately an hour and 15 minutes ago. This will be repeated and he will be bolused normal saline. I do feel he may be dehydrated from his Lasix and given his hypotension this is contributing to his generalized weakness. CBC shows normal white count of 7.8, hemoglobin normal at 13.9, hematocrit 43.2. Platelet count low at 117. He has a low potassium of 3.4, BUN elevated at 33 with a creatinine of 3.32 above his baseline for his chronic kidney disease. Glucose appropriately elevated at 147 with a normal anion gap of 7. AST elevated at 82 which I think is nonspecific, normal alk phos. High-sensitivity troponin is elevated at 377, but he does have chronic kidney disease. He currently is not having chest pain. EKG interpreted by myself shows ventricular paced rhythm at [address] changes. BNP is elevated at 1183, once again above his baseline. I am hesitant to administer Lasix currently because his systolic blood pressure is only 106. Additionally, he was hypotensive in triage. I will refrain from fluid bolus given his history of low ejection fraction. CT of the chest shows no evidence of pleural effusion or pulmonary edema. There is no evidence of rib fracture. At this point in time, I do feel that given the patient's frequent falls and reported weakness of his upper body, that he requires observation. His states that she is having difficulty taking care of him at home. He recently completed outpatient rehabilitation for his legs. They have no home health care currently. I discussed the patient with Dr. Garcia for observation on the PCU. Disposition is assigned to observation in stable condition. Lab Data Attestation: I reviewed the patient's lab results. Labs: Laboratory Results - last 24 hr 05/21/22 05/21/22 05/21/22 14:35 14:35 14:35 WBC 7.8 RBC 4.35 L Hgb 13.9 Hct 43.2 MCV 99.3 H MCH 32.0 MCHC 32.2 RDW Std Deviation 48.0 H RDW Coeff of Roger 13.1 Plt Count 117 L MPV 10.2 Immature Gran % (Auto) 0.400 Neut % (Auto) 81.5 H Lymph % (Auto) 9.1 L Gilliam % (Auto) 9.0 Eos % (Auto) 0.0 Baso % (Auto) 0.0 Absolute Neuts (auto) 6.4 Absolute Lymphs (auto) 0.71 L Nucleated RBC % 0 Sodium 144 Potassium 3.4 L Chloride 107 Carbon Dioxide 30.0 Anion Gap 7 BUN 33 H Creatinine 3.32 H Estim Creat Clear Calc 15.97 Est GFR (MDRD) Af Amer 23 L Est GFR (MDRD) Non-Af 19 L BUN/Creatinine Ratio 9.9 L Glucose 147 H Calcium 10.2 H Total Bilirubin 0.60 AST 82 H ALT 29 Alkaline Phosphatase 77 Troponin I High Sens 377 H* B-Natriuretic Peptide 1183.3 H Total Protein 7.9 Albumin 3.9 Globulin 4.0 Albumin/Globulin Ratio 1.0 Radiography Diagnostic Testing: Clinical Impression(s) from Imaging Studies Chest CT 05/21/22 14:46 IMPRESSION: 1. No acute pulmonary abnormality. 2. Moderate cardiomegaly. 3. Cholelithiasis Electronically Signed: Mika Topete MD at 15:23 EST , Discharge Plan Dx/Rx/DC Orders Clinical Impression: Debility, Weakness, Elevated troponin, CHF (congestive heart failure), Dehydration, Transient hypotension, Contusion of rib on left side Disposition Disposition: [facility]
[2022-05-21 14:46] LABS: Absolute Lymphocyte Count 0.71 X10^3/uL (0.83-4.51); Absolute Neutrophil Count 6.4 X10^3/uL (2.0-7.7); Hematocrit 43.2 % (40-54); Hemoglobin 13.9 g/dL (13.0-16.5); Lymphocyte # 0.71 X10^3/ul (0.83-4.51); Lymphocyte % 9.1 % (19-41); Mean Corp Hgb Conc 32.2 g/dL (32-36); Mean Corpuscular Volume 99.3 fL (80-94); Mean Platelet Vol. 10.2 fl (6.2-12.0); NRBC Flagged by Analyzer 0 % (0-5); Neutrophil # 6.38 X10^3/uL (2.7-7.7); Neutrophil % 81.5 % (47-70); Platelet Count 117 K/mm3 (150-450); RBC Distribution Width CV 13.1 % (11.6-14.6); Red Blood Count 4.35 M/mm3 (4.6-6.2); White Blood Count 7.8 K/mm3 (4.4-11.0)
--- NOTE | 2022-05-21 14:46 | CT_ITS ---
EXAM: CT CHEST WITHOUT INTRAVENOUS CONTRAST CLINICAL INDICATION: pain, injury TECHNIQUE: Helically acquired images were obtained of the chest without intravenous contrast. This CT exam was performed using one or more of the following dose reduction techniques: automated exposure control, adjustment of the mA and/or kV according to patient size, and/or use of iterative reconstruction technique. This report was created using [employer] report generation technology. COMPARISON: Chest radiograph March 01, 2022 FINDINGS: LUNGS AND PLEURAL SPACES: Normal. No mass. No consolidation or edema. No pleural effusion or thickening. No pneumothorax. HEART: Moderate cardiomegaly. Coronary artery stents and calcification noted. MEDIASTINUM: Normal. No mediastinal or hilar adenopathy. Esophagus is unremarkable. No hiatal hernia. THYROID: Normal. No thyroid lesions. BONES/JOINTS: Normal. No suspicious lytic or blastic abnormality. VASCULATURE: Normal. Thoracic aorta is non-dilated. GALLBLADDER AND BILE DUCTS: Multiple small calcified gallstones. TUBES, LINES AND DEVICES: Automatic implantable cardioverter defibrillator (AICD) in place. CT/Thorax/Ribs/Sternum without IMPRESSION: 1. No acute pulmonary abnormality. 2. Moderate cardiomegaly. 3. Cholelithiasis Electronically Signed: Mika Topete MD at 15:23 EST ,
[2022-05-21 15:09] LABS: BNP,B-Type NATRIURETIC PEPTIDE 1183.3 pg/mL (0-100)
[2022-05-21 15:10] LABS: AST(SGOT) 82 U/L (15-37); Alanine Aminotransfer ALT/SGPT 29 U/L (16-61); Albumin, Serum 3.9 g/dL (3.2-5.0); Alkaline Phosphatase 77 U/L (45-117); Anion Gap 7 (5-15); BUN 33 mg/dL (7-18); BUN/Creat Ratio 9.9 RATIO (10-20); Calcium,Total 10.2 mg/dL (8.5-10.1); Chloride 107 mmol/L (98-107); Creatinine, Serum 3.32 mg/dL (0.70-1.30); EST Glomerular Filtration Rate 19 mL/min (>60); Est Glom Filt Rate - Afr Amer 23 mL/min (>60); Estimated Creatinine Clearance 15.97 ml/min; Glucose 147 mg/dL (74-106); Potassium 3.4 mmol/L (3.5-5.1); Protein, Total 7.9 g/dL (6.4-8.2); Sodium Level 144 mmol/L (136-145); Troponin-I HS 377 pg/mL (3.0-78.0)
--- NOTE | 2022-05-21 15:36 | EKG12_ITS ---
Test Reason : FALL Blood Pressure : / mmHG Vent. Rate : 070 BPM Atrial Rate : 250 BPM P-R Int : 000 ms QRS Dur : 164 ms QT Int : 460 ms P-R-T Axes : 000 174 038 degrees QTc Int : 496 ms Ventricular-paced rhythm Abnormal ECG Confirmed by MARQUISE AGEE MD ([id number]), deputy editor in chief EDGARDO FREIRE ([id number]) on 05/22/2022 8:29:35 AM Referred By: NIGHAT Confirmed By:MARQUISE AGEE MD
[2022-05-21 15:59] LABS: Lactic Acid 3.8 mmol/L (0.4-1.9)
[2022-05-21] MEDS: 0.9% Saline Lock 10 ML Syringe IV (17:57)
[2022-05-21] MEDS: Furosemide 40 MG/4 ML Vial IV (17:57)
[2022-05-21 18:41] LABS: Troponin-I HS 481 pg/mL (3.0-78.0)
--- NOTE | 2022-05-21 19:21 | PCM.HP.STD ---
HPI - General General Date of Admission: 05/21/22 Date of Service: 05/21/22 Chief Complaint: Generalized weakness, mechanical fall HPI Narrative MARCOS BECK, is a 86 M who presents to the emergency room at after having sustained 2 mechanical falls at home today. Patient stated that he could not move his legs properly and they were weak. Patient also states when he went to raise himself up from a chair he had chest pain mostly in the lateral precordial areas. At rest he does not complain of any chest pain. Patient lives with his , he had recently been seeing a physical therapist for lower extremity weakness. Work-up in the emergency room included labs which showed an elevated troponin, patient CBC was unremarkable, CHEM panel revealed a potassium of 3.4, BUN of 33, creatinine of 3.32, glucose of 147, a lactic acid of 3.8, and a troponin of 377. Patient's beta natruretic peptide was elevated at 1183. Patient had a CT of his chest which showed no acute pulmonary abnormality, cardiomegaly, and cholelithiasis. On examination, patient is appear to have expiratory wheezes bilaterally, his pulse ox was normal on room air. Patient was placed in observation status for generalized debility and elevated troponin. Patient has no complaints of any chest pain, his EKG showed an underlying atrial fibrillation with paced rhythm. PT and OT will see the patient, I have decided to give the patient 1 dose of Lasix IV tonight and increase his nighttime Lasix from 40 mg to 80 mg. Patient takes Lasix 80 mg every morning also. I am not sure what is causing the patient's expiratory wheezing, I have ordered a respiratory panel on the patient. Patient will need to be reevaluated tomorrow. Patient's cardiac enzymes will be cycled, if his troponin elevates substantially he may need to be seen by cardiology-patient sees Dr. Ibarra on a chronic basis. I discussed the possibility of the patient going to a [place] facility for inpatient rehab services, he did not appear to be against at this if it was necessary, the was in agreement also. Patient's sons were in the room at the time of my examination today also. 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 Overweight Paroxysmal atrial flutter Secondary pulmonary arterial hypertension Syncope Type 2 diabetes mellitus without complications Home Medications aspirin 81 mg chewable tablet 81 mg PO DAILY 06/30/17 [History Last Taken 05/20/22] coenzyme Q10 100 mg capsule (Co Q-10) 100 mg PO DAILY 11/13/18 [History Last Taken 05/21/22] sertraline 50 mg tablet 50 mg PO DAILY #60 tabs 11/13/18 [Rx Last Taken 05/21/22] Handicap Plaquard #1 ea 05/19/19 [Rx Last Taken Unknown] cholecalciferol (vitamin D3) 125 mcg (5,000 unit) tablet 125 mcg PO DAILY 01/05/21 [History Last Taken 05/20/22] clobetasol 0.05 % scalp solution 1 applic topical QAM AND QPM PRN LESION 01/05/21 [History Last Taken 05/20/22] rosuvastatin 10 mg tablet 10 mg PO DAILY 01/05/21 [History Last Taken 05/21/22] vitamins A,C,J-ywnd-rgzlkz 14,320 unit-226 mg-200 unit capsule (PreserVision AREDS) 1 cap PO BID 01/05/21 [History Last Taken 05/21/22] nitroglycerin 0.4 mg sublingual tablet 0.4 mg sublingual Q5-15M PRN Cardiac/Chest Pain #25 tabs 02/17/21 [Rx Last Taken Unknown] isosorbide mononitrate 60 mg tablet,extended release 24 hr 60 mg PO DAILY #90 tabs 04/26/21 [Rx Last Taken 05/21/22] metoprolol succinate 25 mg tablet,extended release 24 hr 25 mg PO DAILY Dose was decreased #90 tabs 07/11/21 [Rx Last Taken 05/21/22] folic acid 1 mg tablet 1 mg PO QDAY #90 tabs 09/27/21 [Rx Last Taken 05/21/22] sacubitril 24 mg-valsartan 26 mg tablet 1 tab PO BID #180 tabs 11/15/21 [Rx Last Taken 05/21/22] furosemide 40 mg tablet (Lasix) 40 mg PO .COMPLEX this is a dose increase 03/20/22 [History Last Taken 05/21/22] apixaban 2.5 mg tablet (Eliquis) 2.5 mg PO BID BLOOD THINNER 05/21/22 [History Last Taken 05/21/22] Allergy/AdvReac Type Severity Reaction Status Date / Time clarithromycin [From Biaxin] Allergy PT UNSURE Verified 05/21/22 12:53 OF REACTION quinapril Allergy Angioedema Verified 05/21/22 12:53 Rzamslo-VOG-PhD Reductase Allergy Hives and Verified 05/21/22 12:53 Inhibitor myalgias [Asxjsrh-Yru-Icl Reductase Inhibitor] valsartan [From Diovan] Allergy PT UNSURE Verified 05/21/22 12:53 OF REACTION ezetimibe [From Zetia] AdvReac diarrhea Verified 05/21/22 12:53 simvastatin [From Vytorin] AdvReac PT UNSURE Verified 05/21/22 12:53 OF REACTION Family History Mother Diabetes Sister Cancer pancreatic Surgical History History of cardioversion (07/11/20) History of coronary artery stent placement (08/01/17) Presence of automatic implantable cardioverter-defibrillator (07/05/17) Presence of biventricular implantable cardioverter-defibrillator (ICD) (01/08/19) Social History Smoking Status: Former smoker how long ago did patient quit smoking: May 1988 alcohol intake: current alcohol intake frequency: holidays/special occasions only caffeine: No ROS Constitutional Constitutional: Denies anorexia, change in weight, fever(s), night sweats or weakness Eyes Eyes: Denies blurry vision, change in vision, discharge from eye(s) or eye pain ENT HEENT: Denies abnormal hearing, dysphagia or ear pain Cardiovascular Cardiovascular: Reports chest pain and other Details: Patient complained of chest pain which was brought on by trying to raise himself up from a seated position or lying position, he does not complain of any chest pain at rest ; Denies claudication, dyspnea on exertion, edema, lightheadedness, orthopnea or palpitations Respiratory/Chest Respiratory/Chest: Reports wheezing; Denies cough, dyspnea, excessive phlegm production, hemoptysis, productive cough, shortness of breath at rest or shortness of breath with exertion Gastrointestinal Gastrointestinal: Denies abdominal pain, coffee ground emesis, constipation, diarrhea, dyspepsia, hematemesis, hematochezia, melena, nausea or vomiting Genitourinary Genitourinary: Denies difficulty urinating, dysuria, hematuria, nocturia, urinary frequency, urinary hesitancy, urinary incontinence or urinary urgency Musculoskeletal Musculoskeletal: Reports joint stiffness; Denies back pain, joint pain, joint swelling, myalgias or neck pain Neurologic Neurologic: Reports focal weakness; Denies abnormal gait, abnormal speech, dizziness, headache(s), loss of vision, numbness, other visual disturbances, paresthesias, seizure-like activity, seizures, syncope or tingling Psychiatric Psychiatric: Denies anxiety, cognitive impairment, depression, irritability, mood swings or suicidal ideation Endocrine Endocrinology: Denies change in body appearance, cold intolerance, excessive sweating, heat intolerance, polydipsia or polyuria Hematologic/Lymphatic Hematologic/Lymphatic: Denies none, anemia, easy bleeding, easy bruising or lymphadenopathy Allergic/Immunologic Allergic/Immunologic: Denies rhinitis, urticaria, eczemia or asthma Vital Signs Vital Signs Vital Signs: 05/21/22 12:54 05/21/22 14:46 05/21/22 14:53 Temperature 98.8 F Temperature Source Temporal Pulse Rate 70 70 Pulse Rate [Lying] Pulse Rate [Sitting (for 1 minute prior to obtaining)] Pulse Rate [Standing (for 1 minute prior to obtaining)] Respiratory Rate 16 18 Respiratory Effort Normal Respiratory Depth Respiratory Pattern Blood Pressure 86/46 L 117/56 L Blood Pressure [Lying] Blood Pressure [Sitting (for 1 minute prior to obtaining)] Blood Pressure [Standing (for 1 minute prior to obtaining)] Blood Pressure Mean 59 76 Blood Pressure Mean [Lying] Blood Pressure Mean [Sitting (for 1 minute prior to obtaining)] Blood Pressure Mean [Standing (for 1 minute prior to obtaining)] Blood Pressure Source Blood Pressure Position Blood Pressure Location Pulse Ox 94 96 Oxygen Delivery Method Room Air Room Air 05/21/22 16:29 05/21/22 17:15 05/21/22 17:15 Temperature 98.4 F 98.4 F Temperature Source Temporal Oral Pulse Rate 70 82 Pulse Rate [Lying] 70 Pulse Rate [Sitting (for 1 minute prior to obtaining)] 82 Pulse Rate [Standing (for 1 minute prior to obtaining)] 81 Respiratory Rate 30 H 24 H Respiratory Effort Respiratory Depth Respiratory Pattern Blood Pressure 122/65 H 117/64 Blood Pressure [Lying] 117/64 Blood Pressure [Sitting (for 1 minute prior to obtaining)] 98/77 Blood Pressure [Standing (for 1 minute prior to obtaining)] 90/52 L Blood Pressure Mean 84 81 Blood Pressure Mean [Lying] 81 Blood Pressure Mean [Sitting (for 1 minute prior to obtaining)] 84 Blood Pressure Mean [Standing (for 1 minute prior to obtaining)] 64 Blood Pressure Source Monitor Blood Pressure Position Supine Blood Pressure Location Left Arm Pulse Ox 95 92 Oxygen Delivery Method Room Air Room Air 05/21/22 17:02 05/21/22 17:15 Temperature Temperature Source Pulse Rate 70 Pulse Rate [Lying] Pulse Rate [Sitting (for 1 minute prior to obtaining)] Pulse Rate [Standing (for 1 minute prior to obtaining)] Respiratory Rate Respiratory Effort Short of Breath Respiratory Depth Shallow Respiratory Pattern Tachypnea Blood Pressure Blood Pressure [Lying] Blood Pressure [Sitting (for 1 minute prior to obtaining)] Blood Pressure [Standing (for 1 minute prior to obtaining)] Blood Pressure Mean Blood Pressure Mean [Lying] Blood Pressure Mean [Sitting (for 1 minute prior to obtaining)] Blood Pressure Mean [Standing (for 1 minute prior to obtaining)] Blood Pressure Source Blood Pressure Position Blood Pressure Location Pulse Ox Oxygen Delivery Method Room Air Weight Weight: 90.2 kg Body Mass Index (BMI) 29.3 Physical Exam Const alert, oriented x3, no apparent distress, average body habitus and healthy appearing Constitutional Narrative: Patient appears younger than his stated age General Appearance: cooperative, well kempt and well developed Orientation / Consciousness: awake, oriented to person, oriented to place and oriented to time HEENT normocephalic, head/scalp atraumatic and moist oral mucous membranes Eyes PERRL, EOMs intact bilaterally and conjunctivae normal Neck supple, no JVD, thyroid normal and no carotid bruits General: trachea midline Resp normal respiratory effort, no retractions and no use of accessory muscles Resp Narrative: Patient has expiratory wheezes scattered over both lungs Auscultation: wheezes throughout; Negative for rales or rhonchi Cardio regular rate, regular rhythm, S1 normal heart sound, S2 normal heart sound, no murmurs, no rub and no gallops Cardio Narrative: Patient has a paced rhythm GI normal to inspection, nondistended, normoactive bowel sounds, soft to palpation, non-tender and non-distended Extremity no clubbing, cyanosis or edema Skin no rashes or lesions noted General Skin Exam: no breakdown Neuro oriented x3, CN's II-XII intact bilaterally, moves all extremities, no focal motor deficits and no sensory deficits noted Sensorium / Orientation: awake, alert, oriented to person, oriented to place and oriented to time Speech: speech normal Psych affect normal Results Lab / Micro Data Result Diagrams: 05/21/22 14:35 05/21/22 14:35 Labs: Laboratory Results - last 24 hr 05/21/22 14:35: WBC 7.8, RBC 4.35 L, Hgb 13.9, Hct 43.2, MCV 99.3 H, MCH 32.0, MCHC 32.2, RDW Std Deviation 48.0 H, RDW Coeff of Roger 13.1, Plt Count 117 L, MPV 10.2, Immature Gran % (Auto) 0.400, Neut % (Auto) 81.5 H, Lymph % (Auto) 9.1 L, [place] % (Auto) 9.0, Eos % (Auto) 0.0, Baso % (Auto) 0.0, Absolute Neuts (auto) 6.4, Absolute Lymphs (auto) 0.71 L, Nucleated RBC % 0 05/21/22 14:35: Sodium 144, Potassium 3.4 L, Chloride 107, Carbon Dioxide 30.0, Anion Gap 7, BUN 33 H, Creatinine 3.32 H, Estim Creat Clear Calc 15.97, Est GFR (MDRD) Af Amer 23 L, Est GFR (MDRD) Non-Af 19 L, BUN/Creatinine Ratio 9.9 L, Glucose 147 H, Calcium 10.2 H, Total Bilirubin 0.60, AST 82 H, ALT 29, Alkaline Phosphatase 77, Troponin I High Sens 377 H*, Total Protein 7.9, Albumin 3.9, Globulin 4.0, Albumin/Globulin Ratio 1.0 05/21/22 14:35: B-Natriuretic Peptide 1183.3 H 05/21/22 15:15: Lactic Acid 3.8 H* 05/21/22 18:00: Troponin I High Sens 481 H* Radiology Impression Chest CT 05/21/22 14:46 IMPRESSION: 1. No acute pulmonary abnormality. 2. Moderate cardiomegaly. 3. Cholelithiasis Electronically Signed: Mika Topete MD at 15:23 EST , Assessment & Plan Assessment/Plan (1) Debility: PLAN: Plan 1 generalized debility-probably secondary to advanced age and multiple medical problems, patient will be placed in observation status on PCU, he will be seen by PT and OT, he may need to be admitted to a [place] facility for short-term rehab services. #2 elevated troponin-etiology unclear at this point, I talked briefly with his plastics heat welder by phone today (), he stated that the patient's third troponin did not elevate markedly he would like the patient to undergo a pharmacological resting stress test tomorrow. I relayed this information to Dr. Bear who will be checking on his third troponin tonight and make the decision whether to have Dr. Ibarra see the patient if the troponin is much higher or just get a pharmacological nuclear resting stress test tomorrow morning. #3 coronary artery disease-patient will remain on his present medications #4 chronic kidney disease stage IIIb secondary to type 2 diabetes-patient's creatinine today was higher than his normal creatinine runs, I am reluctant to give this patient fluids however because he was wheezing on my examination tonight I was not sure if the patient had an element of congestive heart failure which was not obvious on his CT of his chest. Labs will be rechecked tomorrow. #5 ischemic cardiomyopathy-complicates care, recovery, management and prognosis, patient will remain on his present medications #6 type 2 diabetes-blood sugars will be monitored, sliding scale insulin will be given to the patient #7 chronic atrial fibrillation-patient is on Eliquis #8 hypercoagulable state secondary to chronic atrial fibrillation-patient is on Eliquis #9 expiratory wheezing-etiology unclear at this time, patient was given an IV dose of Lasix tonight, his daily dose of Lasix will be increased to 80 mg twice daily Charges/Coding Visit Charges OBSV E&M: 88249 Initial observation care L3
[2022-05-21 19:33] LABS: Reflex Lactate? Y
[2022-05-21 20:33] LABS: Troponin-I HS 515 pg/mL (3.0-78.0)
[2022-05-21 20:36] LABS: Lactic Acid 2.8 mmol/L (0.4-1.9)
[2022-05-21] MEDS: SACUBITRIL/VALSARTAN 24/26 MG TABLET 1 EACH PO (22:58)
[2022-05-21] MEDS: APIXABAN 2.5 MG TABLET (WCH) PO (22:59)
[2022-05-21] MEDS: Acetaminophen 325 MG Tablet 650 MG PO (23:10)
[2022-05-22] VITALS (11 sets, daily range): BP systolic 102–129; BP diastolic 54–79; PULSE 70–80; RESP 15–18; TEMP 36.4–37; O2SAT 92–100
--- NOTE | 2022-05-22 04:29 | EKG12_ITS ---
Test Reason : STRESS TEST Blood Pressure : / mmHG Vent. Rate : 070 BPM Atrial Rate : 070 BPM P-R Int : 000 ms QRS Dur : 162 ms QT Int : 486 ms P-R-T Axes : 000 169 017 degrees QTc Int : 524 ms Ventricular-paced rhythm Abnormal ECG When compared with ECG of 21-MAY-2022 15:41, MANUAL COMPARISON REQUIRED, DATA IS UNCONFIRMED Confirmed by CYNDIE RICHEY, MARQUISE ([id number]), acquisition editor EDGARDO FREIRE ([id number]) on 05/23/2022 9:29:54 AM Referred By: Confirmed By:MARQUISE AGEE MD
[2022-05-22] MEDS: Aspirin 81 MG TAB.CHEW PO (05:54)
[2022-05-22 06:41] LABS: Anion Gap 6 (5-15); BUN 37 mg/dL (7-18); BUN/Creat Ratio 11.5 RATIO (10-20); Calcium,Total 9.7 mg/dL (8.5-10.1); Chloride 108 mmol/L (98-107); Creatinine, Serum 3.23 mg/dL (0.70-1.30); EST Glomerular Filtration Rate 19 mL/min (>60); Est Glom Filt Rate - Afr Amer 24 mL/min (>60); Estimated Creatinine Clearance 16.42 ml/min; Glucose 132 mg/dL (74-106); Sodium Level 143 mmol/L (136-145)
--- NOTE | 2022-05-22 08:02 | PN.HOSP_ITS ---
Subjective Subjective Follow-up for recurrent fall, loss of balance disequilibrium. Elevated troponin Objective Data Objective Data Vital Signs: Vital Signs Temp Pulse Resp BP Pulse Ox O2 Del Method O2 Flow Rate 97.9 F 70 18 106/79 100 Nasal Cannula 2 05/22/22 05:00 05/22/22 06:59 05/22/22 05:00 05/22/22 05:00 05/22/22 05:00 05/22/22 05:00 05/22/22 05:00 Oxygen Flow Rate (L/min) 2 Oxygen Delivery Method Nasal Cannula Weight: 198 lb 13.711 oz Body Mass Index (BMI) 29.3 Intake & Output: Intake and Output for Last 24 Hours 05/20/22 05/21/22 05/22/22 23:59 23:59 23:59 Intake Total 240 / 240 Output Total 0 / 0 Balance 240 / 240 Lab / Micro Data Result Diagrams: 05/21/22 14:35 05/22/22 05:35 Labs: Laboratory Results - last 24 hr 05/21/22 14:35: WBC 7.8, RBC 4.35 L, Hgb 13.9, Hct 43.2, MCV 99.3 H, MCH 32.0, MCHC 32.2, RDW Std Deviation 48.0 H, RDW Coeff of Roger 13.1, Plt Count 117 L, MPV 10.2, Immature Gran % (Auto) 0.400, Neut % (Auto) 81.5 H, Lymph % (Auto) 9.1 L, [place] % (Auto) 9.0, Eos % (Auto) 0.0, Baso % (Auto) 0.0, Absolute Neuts (auto) 6.4, Absolute Lymphs (auto) 0.71 L, Nucleated RBC % 0 05/21/22 14:35: Sodium 144, Potassium 3.4 L, Chloride 107, Carbon Dioxide 30.0, Anion Gap 7, BUN 33 H, Creatinine 3.32 H, Estim Creat Clear Calc 15.97, Est GFR (MDRD) Af Amer 23 L, Est GFR (MDRD) Non-Af 19 L, BUN/Creatinine Ratio 9.9 L, Glucose 147 H, Calcium 10.2 H, Total Bilirubin 0.60, AST 82 H, ALT 29, Alkaline Phosphatase 77, Troponin I High Sens 377 H*, Total Protein 7.9, Albumin 3.9, Globulin 4.0, Albumin/Globulin Ratio 1.0 05/21/22 14:35: B-Natriuretic Peptide 1183.3 H 05/21/22 15:15: Lactic Acid 3.8 H* 05/21/22 18:00: Troponin I High Sens 481 H* 05/21/22 20:00: Troponin I High Sens 515 H* 05/21/22 20:05: Lactic Acid 2.8 H* 05/22/22 05:35: Sodium 143, Potassium 3.0 L, Chloride 108 H, Carbon Dioxide 29.0, Anion Gap 6, BUN 37 H, Creatinine 3.23 H, Estim Creat Clear Calc 16.42, Est GFR (MDRD) Af Amer 24 L, Est GFR (MDRD) Non-Af 19 L, BUN/Creatinine Ratio 11.5, Glucose 132 H, Calcium 9.7 Micro: Microbiology 05/21/22 17:38 Mucosa - Nasopharyngeal Respiratory Panel (PCR) - Final Radiography Diagnostic Testing: Radiology Impression Chest CT 05/21/22 14:46 IMPRESSION: 1. No acute pulmonary abnormality. 2. Moderate cardiomegaly. 3. Cholelithiasis Electronically Signed: Mika Topete MD at 15:23 EST Reading Location ID and State: [address] [place] [address] Tel , Service support , Physical Exam Narrative Physical exam General: Alert, Oriented x3, Cooperative HEENT: Atraumatic, PERRLA, EOMI, Normocephalic Oral: No Gingival or Mucosal Lesions/ Ulcerations Neck: Supple, No JVD, Negative Carotid Bruits Chest wall/lungs: Air entry diminished in bilateral lung bases. No crepit ation/rhonchi Cardiovascular: Paced rhythm, Normal S1, Normal S2, systolic murmur right second ICS, LLSB Abdomen: Bowel Sounds Present, Soft, Non Tender, Non-Distended : No dysuria/burning micturition no renal angle tenderness. No suprapubic tenderness. Extremities: No edema, Capillary Refill Less than 3 Seconds Skin: No rashes, No breakdown Musculoskeletal: No Tenderness to Palpation of Joints or Extremities. ROM at knee and hip joints and ankle joints restricted. Disequilibrium, recurrent fall Neurological: Cranial nerves II-XII grossly intact, DTR 2+/4 and Symmetrical, Neuro grossly intact Psych/Mental Status: Flat affect Assessment & Plan Assessment/Plan (1) Debility: PLAN: Plan 86-year-old gentleman was admitted after 2 frequent sustained mechanical fall at home. Patient could not move his legs, weak. He also complained of chest pain and he tries to raise himself from chair in precordial area. 1 generalized debility-probably secondary to advanced age and multiple medical problems, patient in observation status. PT and OT. Might need SNF. #2 elevated troponin-etiology unclear: Patient gets mild short of breath on exertion. Patient states he gets right-sided rib pain when he pushes the filipe- arm to stand up. Dr. Ibarra was called by admitting hospitalist and he states he gets rib pain on pharmacological stress test was recommended. Patient had nuclear stress testing is not yet reported. Serial troponins are elevated but did not show increasing trend. 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 Serum magnesium level 2.7 high. Phosphorus 3.9. Patient estimated clearance around 15 mL/min. There is no significant difference in creatinine of last 2 days. Usually patient creatinine runs around 2.3-2.5 last 3 years. #5 ischemic cardiomyopathy-complicates care, recovery, management and prognosis, patient will remain on his present medications And 22 reported EF 35% with moderate LVH, with no significant change compared to previous study. #6 type 2 diabetes: Glucoses 132. Accu-Chek SNS coverage and sliding scale #7 chronic atrial fibrillation-patient is on Eliquis #8 hypercoagulable state secondary to chronic atrial fibrillation-patient is on Eliquis #9 expiratory wheezing-chest x-ray no acute cardiopulmonary abnormality. Chest x-ray individually reviewed. Continue baseline home dose of Lasix. Microbiology Past 72 Hours 05/21/22 17:38 Mucosa - Nasopharyngeal Respiratory Panel (PCR) - Final Laboratory Results 05/21/22 14:35: WBC 7.8, RBC 4.35 L, Hgb 13.9, Hct 43.2, MCV 99.3 H, MCH 32.0, MCHC 32.2, RDW Std Deviation 48.0 H, RDW Coeff of Roger 13.1, Plt Count 117 L, MPV 10.2, Immature Gran % (Auto) 0.400, Neut % (Auto) 81.5 H, Lymph % (Auto) 9.1 L, [place] % (Auto) 9.0, Eos % (Auto) 0.0, Baso % (Auto) 0.0, Absolute Neuts (auto) 6.4, Absolute Lymphs (auto) 0.71 L, Nucleated RBC % 0 05/21/22 14:35: Sodium 144, Potassium 3.4 L, Chloride 107, Carbon Dioxide 30.0, Anion Gap 7, BUN 33 H, Creatinine 3.32 H, Estim Creat Clear Calc 15.97, Est GFR (MDRD) Af Amer 23 L, Est GFR (MDRD) Non-Af 19 L, BUN/Creatinine Ratio 9.9 L, Glucose 147 H, Calcium 10.2 H, Total Bilirubin 0.60, AST 82 H, ALT 29, Alkaline Phosphatase 77, Troponin I High Sens 377 H*, Total Protein 7.9, Albumin 3.9, Globulin 4.0, Albumin/Globulin Ratio 1.0 05/21/22 14:35: B-Natriuretic Peptide 1183.3 H 05/21/22 15:15: Lactic Acid 3.8 H* 05/21/22 18:00: Troponin I High Sens 481 H* 05/21/22 20:00: Troponin I High Sens 515 H* 05/21/22 20:05: Lactic Acid 2.8 H* 05/22/22 05:35: Sodium 143, Potassium 3.0 L, Chloride 108 H, Carbon Dioxide 29.0, Anion Gap 6, BUN 37 H, Creatinine 3.23 H, Estim Creat Clear Calc 16.42, Est GFR (MDRD) Af Amer 24 L, Est GFR (MDRD) Non-Af 19 L, BUN/Creatinine Ratio 11.5, Glucose 132 H, Calcium 9.7 05/22/22 05:35: Phosphorus 3.9, Magnesium 2.7 H Clinical Impression(s) from Imaging Studies Chest CT 05/21/22 14:46 IMPRESSION: 1. No acute pulmonary abnormality. 2. Moderate cardiomegaly. 3. Cholelithiasis Electronically Signed: Mika Topete MD at 15:23 EST , Charges/Coding Visit Charges OBSV E&M: 14059 Subsequent observation care L2
[2022-05-22 08:40] LABS: Magnesium 2.7 mg/dL (1.6-2.6); Phosphorus 3.9 mg/dL (2.5-4.9)
[2022-05-22] MEDS: Isosorbide Mononitrate 60 MG Tablet PO (11:19)
[2022-05-22] MEDS: Folic Acid 1 MG Tablet PO (11:19)
[2022-05-22] MEDS: Multivitamin (Healthy Eyes) Capsule 1 CAP PO ×2 (11:19→16:48)
[2022-05-22] MEDS: SACUBITRIL/VALSARTAN 24/26 MG TABLET 1 EACH PO ×2 (11:19→21:20)
[2022-05-22] MEDS: Furosemide 80 MG Tablet PO ×2 (11:19→16:48)
[2022-05-22] MEDS: Sertraline 50 MG Tablet PO (11:20)
[2022-05-22] MEDS: Potassium Chloride 10mEq/100mL 10 MEQ/100 ML IV.SOLN. 100 MEQ IV BOLUS ×2 (11:20→12:40)
--- NOTE | 2022-05-22 13:54 | CHAPLAIN ---
Type of Pastoral Visit _x__ Initial Visit ___ Follow-up Visit ___ On-call Visit ___ General Patient Visit ___ Spiritual Assessment ___ Family Conference ___ Bereavement ___ Rapid Response ___ Code Blue ___ Other (describe below) Pastoral Care Referral From _x__ Patient ___ Family ___ Nurse ___ Physician ___ Locket Maker ___ Electrical Electronics Engineer ___ Other (describe below) Sacrament/Intervention _x__ Active listening ___ Anointing ___ Hinduism ___ Bereavement ___ Communion ___ Rosalinda exploration ___ ___ Life review ___ Prayer ___ Reconciliation ___ Sacrament of Sick ___ Supportive presence ___ Wedding ___ Other (describe below) Pastoral Comments patient is sitting up in chair and son had stopped on his lunch break to check on his father; pt is alert and able to describe his health situation and shows some humor in his discussion of current life; pt states that he has no needs due to his stress test was a breeze;
--- NOTE | 2022-05-22 14:44 | CASEMGMT ---
SW reviewed PT/OT evaluations and therapy is recommending assisted facility for patient. SW met with patient and his . SW introduced self and role at [facility]. SW explained that therapy is recommending patient go to a assisted facility for short term rehab. SW provided patient and his with a list of?assisted facility providers including quality and resource use data and consistent with patient?s preferred geographic region, medical needs, and insurance network were provided from the [employer] Guide. Patient's asked about [facility] and SW let her know [facility] is not in network with their insurance. SW did tell them SW can check on patient's in and out of network benefits and let them know. Plan: SNF pending facility choice, acceptance, and insurance approval. Karina Salinas [facility]OODM[facility] BARN GROOMAnnel ECHEVARRIA
--- NOTE | 2022-05-22 15:48 | CASEMGMT ---
SW spent an hour on the phone with insurance to find out patient's alf facility benefits both in and out of network. Patient's has a $0 co-pay for SNF stay. Patient has a $150 deductible and patient has a max out of pocket of $1500. Patient has met $1,195 of this max out of pocket. Patient's in and out of network benefits are the same. SW went back to patient's room and patient's had left, but his daughter and her family were present. EMMA explained what EMMA was working on as far as benefits for alf facility. SW let them know patient's in and out of networks benefits are the same so he can go to [facility] if that is what they want. Patient's daughter said that is what they want. SW let her know SW will send out referral and talk with patient and tomorrow. EMMA asked Adali d/c planning advisor to please make referral to [facility]. Karina Salinas FLEXIBLE SHAFT WINDER SWATHI
--- NOTE | 2022-05-22 15:53 | CASEMGMT ---
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 Delaney AGUILAR Community Liaison Officer
--- NOTE | 2022-05-22 16:48 | CASEMGMT ---
RN RYAN NOTE: Intro role of CM to patient and dtr, who is at bedside. LINDO form explained re: Observation status for treatment of debility and elevated troponin. Explained hospitalization will be paid per his insurance policy for Outpatient billing and condition will continue to be evaluated for Inpt necessity. Also let pt and dtr, who is at bedside, know that [facility] sends paper in the billing packet with their phone number if questions arise. Discussed Pharmacy section of LINDO form and self administered medication guideline. Pt and dtr verbalize understanding and questions answered. Form signed, copy made and placed in chart, and original given to pt. Sukhjinder DAWSONN RN CM
--- NOTE | 2022-05-22 17:35 | STRESSREP ---
Stress Test Report Pharmacologic myocardial perfusion stress test. 86-year-old male with a history of coronary artery disease with elevated cardiac enzymes. Stress protocol: Resting EKG demonstrates atrial fibrillation with ventricular pacing at 77 bpm resting blood pressure is 122/66 mmHg. 0.4 mg of regadenoson was infused per usual protocol followed by rapid intravenous saline flush injection the maximum heart rate attained was 125 bpm which was 93% of max impacted heart rate the maximum workload was 1 metabolic equivalent. At rest there were no ST or T wave changes noted to suggest abnormal flow reserve and at peak infusion nonspecific ST changes were noted with did not meet the criteria for ischemia. The resting blood pressure was 122/60 with a final blood pressure of 112/60 mmHg. Myocardial perfusion protocol. 9.4 mg daily of technetium 99m sestamibi was injected at rest. 0.4 mg of regadenoson was infused per usual protocol. At peak infusion 29.2 mCi of technetium 99m sestamibi was injected stress images were obtained stress and rest images were reconstructed and compared in the short axis vertical long and horizontal long axis. Gated images were also obtained. Perfusion SPECT analysis: Review of the stress images demonstrate a mildly dilated cardiac silhouette size. There is a defect noted in the apex as well as a small defect noted in the mid lateral wall. The resting images appear to demonstrate a similar pattern suggestive of a previous apical infarct as well as a previous lateral infarct. No significant ischemia is noted minimal rebeca-infarct ischemia cannot be completely excluded. Gated SPECT analysis: The gated ejection fraction is noted to be 19%. 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 No significant ischemia is noted. Cardiomyopathy present
[2022-05-22] MEDS: APIXABAN 2.5 MG TABLET (WCH) PO (21:20)
[2022-05-23] VITALS (10 sets, daily range): BP systolic 93–110; BP diastolic 48–60; PULSE 69–72; RESP 16–18; TEMP 36.7–37; O2SAT 94–96
[2022-05-23 07:27] LABS: Absolute Lymphocyte Count 0.78 X10^3/uL (0.83-4.51); Absolute Neutrophil Count 4.1 X10^3/uL (2.0-7.7); Basophil# 0.02 X10^3/uL; Basophil% 0.4 % (0-1); Eosinophil# 0.09 X10^3/uL; Eosinophils% 1.6 % (0-5); Hematocrit 38.7 % (40-54); Hemoglobin 12.1 g/dL (13.0-16.5); Lymphocyte # 0.78 X10^3/ul (0.83-4.51); Mean Corp Hgb Conc 31.3 g/dL (32-36); Mean Corpuscular Hgb 31.2 pg (27.0-32.0); Mean Corpuscular Volume 99.7 fL (80-94); Mean Platelet Vol. 10.4 fl (6.2-12.0); Monocyte# 0.61 X10^3/uL; Monocyte% 10.9 % (0-10); NRBC Flagged by Analyzer 0 % (0-5); Neutrophil # 4.05 X10^3/uL (2.7-7.7); Neutrophil % 72.6 % (47-70); Platelet Count 113 K/mm3 (150-450); RBC Distribution Width CV 13.1 % (11.6-14.6); RBC Distribution Width SD 48.1 fl (35.1-43.9); Red Blood Count 3.88 M/mm3 (4.6-6.2); White Blood Count 5.6 K/mm3 (4.4-11.0)
--- NOTE | 2022-05-23 07:42 | CASEMGMT ---
Discharge Escrow Assistant Patient was accepted at [facility]. EMMA Collins notified. Delaney AGUILAR Mortgage Banker
[2022-05-23 07:43] LABS: Anion Gap 9 (5-15); BUN 41 mg/dL (7-18); BUN/Creat Ratio 14.2 RATIO (10-20); Calcium,Total 9.1 mg/dL (8.5-10.1); Chloride 107 mmol/L (98-107); Creatinine, Serum 2.88 mg/dL (0.70-1.30); EST Glomerular Filtration Rate 22 mL/min (>60); Est Glom Filt Rate - Afr Amer 27 mL/min (>60); Estimated Creatinine Clearance 18.41 ml/min; Glucose 136 mg/dL (74-106); Potassium 3.9 mmol/L (3.5-5.1); Sodium Level 136 mmol/L (136-145)
[2022-05-23] MEDS: Furosemide 80 MG Tablet PO ×2 (09:13→17:01)
[2022-05-23] MEDS: Multivitamin (Healthy Eyes) Capsule 1 CAP PO ×2 (09:13→17:01)
[2022-05-23] MEDS: APIXABAN 2.5 MG TABLET (WCH) PO ×2 (09:13→21:50)
[2022-05-23] MEDS: Aspirin 81 MG TAB.CHEW PO (09:13)
[2022-05-23] MEDS: Folic Acid 1 MG Tablet PO (09:13)
[2022-05-23] MEDS: Sertraline 50 MG Tablet PO (09:14)
[2022-05-23] MEDS: SACUBITRIL/VALSARTAN 24/26 MG TABLET 1 EACH PO ×2 (11:02→21:51)
[2022-05-23] MEDS: Isosorbide Mononitrate 60 MG Tablet PO (11:02)
[2022-05-23] MEDS: guaiFENesin/D-Methorphan TAB.SR.12H 1 TABLET PO ×2 (14:17→21:50)
--- NOTE | 2022-05-23 14:35 | CASEMGMT ---
EMMA spoke with patient's and her daughter did let her know what SW said about insurance benefits and [facility]. SW let patient's know [facility] accepted him, but we are waiting on insurance approval. This could be a day or more especially due to the holiday. Plan: [facility] pending pre-cert. Karina Salinas LADLE BUILDER SWATHI
--- NOTE | 2022-05-23 15:46 | PN.HOSP_ITS ---
Subjective Subjective Follow-up for debility due to recurrent fall, dyslipidemia and impaired ADL. Failure to thrive. Objective Data Objective Data Vital Signs: Vital Signs Temp Pulse Resp BP Pulse Ox O2 Del Method O2 Flow Rate 98.4 F 72 18 94/48 L 96 Room Air 2 05/23/22 15:13 05/23/22 15:13 05/23/22 15:13 05/23/22 15:13 05/23/22 15:13 05/23/22 15:13 05/22/22 17:39 Oxygen Flow Rate (L/min) 2 Oxygen Delivery Method Room Air Weight: 198 lb 13.711 oz Body Mass Index (BMI) 29.3 Intake & Output: Intake and Output for Last 24 Hours 05/21/22 05/22/22 05/23/22 23:59 23:59 23:59 Intake Total 240 / 240 200 / 450 690 / 690 Output Total 0 / 0 375 / 375 Balance 240 / 240 200 / 250 315 / 315 Lab / Micro Data Result Diagrams: 05/23/22 07:19 05/23/22 06:50 Labs: Laboratory Results - last 24 hr 05/23/22 06:50: WBC Cancelled, Corrected WBC Cancelled, RBC Cancelled, Hgb Cancelled, Hct Cancelled, MCV Cancelled, MCH Cancelled, MCHC Cancelled, RDW Std Deviation Cancelled, RDW Coeff of Roger Cancelled, Plt Count Cancelled, MPV Cancelled, Immature Gran % (Auto) Cancelled, Neut % (Auto) Cancelled, Lymph % (Auto) Cancelled, Aiken % (Auto) Cancelled, Eos % (Auto) Cancelled, Baso % (Auto) Cancelled, Absolute Neuts (auto) Cancelled, Absolute Lymphs (auto) Cancelled, Total Counted Cancelled, Neutrophils % (Manual) Cancelled, Band Neutrophils % Cancelled, Lymphocytes % (Manual) Cancelled, Monocytes % (Manual) Cancelled, Eosinophils % (Manual) Cancelled, Basophils % (Manual) Cancelled, Metamyelocytes % Cancelled, Myelocytes % Cancelled, Promyelocytes % Cancelled, Blast Cells % Cancelled, Plasma Cell % (Manual) Cancelled, Other Cells % Cancelled, Nucleated RBC % Cancelled, Nucleated RBCs/100 WBC Cancelled, Differential Comment Cancelled, Diff Path Review Cancelled, Hypersegmented Neuts Cancelled, Atypical Lymphocytes Cancelled, Reactive Lymphocytes Cancelled, Smudge Cells Cancelled, Toxic Granulation Cancelled, Toxic Vacuolation Cancelled, Dohle Bodies Cancelled, Paige Rods Cancelled, Platelet Estimate Cancelled, Plt Morphology Comment Cancelled, RBC Morphology Cancelled, Polychromasia Cancelled, Hypochrom domonique Cancelled, Poikilocytosis Cancelled, Basophilic Stippling Cancelled, Anisocytosis Cancelled, Microcytosis Cancelled, Macrocytosis Cancelled, Spherocytes Cancelled, Sickle Cells Cancelled, Target Cells Cancelled, Tear Drop Cells Cancelled, Ovalocytes Cancelled, Stomatocytes Cancelled, Box-[place] Bodies Cancelled, Scuddy Cells Cancelled, Bite Cells Cancelled, Crenated Cell Cancelled, Acanthocytes (Spur) Cancelled, Rouleaux Cancelled, Schistocytes Cancelled 05/23/22 06:50: Sodium 136, Potassium 3.9, Chloride 107, Carbon Dioxide 20.0 L, Anion Gap 9, BUN 41 H, Creatinine 2.88 H, Estim Creat Clear Calc 18.41, Est GFR (MDRD) Af Amer 27 L, Est GFR (MDRD) Non-Af 22 L, BUN/Creatinine Ratio 14.2, Glucose 136 H, Calcium 9.1 05/23/22 07:19: WBC 5.6, RBC 3.88 L, Hgb 12.1 L, Hct 38.7 L, MCV 99.7 H, MCH 31.2, MCHC 31.3 L, RDW Std Deviation 48.1 H, RDW Coeff of Roger 13.1, Plt Count 113 L, MPV 10.4, Immature Gran % (Auto) 0.500, Neut % (Auto) 72.6 H, Lymph % (Auto) 14.0 L, Aiken % (Auto) 10.9 H, Eos % (Auto) 1.6, Baso % (Auto) 0.4, Absolute Neuts (auto) 4.1, Absolute Lymphs (auto) 0.78 L, Nucleated RBC % 0 Micro: Microbiology 05/21/22 17:38 Mucosa - Nasopharyngeal Respiratory Panel (PCR) - Final Physical Exam Narrative Physical exam General: Alert, Oriented x3, Cooperative HEENT: Atraumatic, PERRLA, EOMI, Normocephalic Oral: No Gingival or Mucosal Lesions/ Ulcerations Neck: Supple, No JVD, Negative Carotid Bruits Chest wall/lungs: Air entry diminished in bilateral lung bases. No crepitation/rhonchi Cardiovascular: Paced rhythm, Normal S1, Normal S2, systolic murmur right second ICS, LLSB Abdomen: Bowel Sounds Present, Soft, Non Tender, Non-Distended : No dysuria/burning micturition no renal angle tenderness. No suprapubic tenderness. Extremities: No edema, Capillary Refill Less than 3 Seconds Skin: Mild superficial abrasion/bruise on the left willson probably due to fall. Musculoskeletal: No Tenderness to Palpation of Joints or Extremities. ROM at knee and hip joints and ankle joints restricted. Disequilibrium, recurrent fall Neurological: Cranial nerves II-XII grossly intact, DTR 2+/4 and muscle strength 4/5 at major joints. Psych/Mental Status: Flat affect Assessment & Plan Assessment/Plan (1) Debility: PLAN: Plan 86-year-old gentleman was admitted after 2 frequent sustained mechanical fall at home. Patient could not move his legs, weak. He also complained of chest pain and he tries to raise himself from chair in precordial area. 1 generalized debility-probably secondary to advanced age and multiple medical problems, patient in observation status. PT and OT. Might need SNF. #2 elevated troponin-etiology unclear: Patient gets mild short of breath on exertion. Patient states he gets right-sided rib pain when he pushes the filipe- arm to stand up. Dr. Ibarra was called by admitting hospitalist and he states he gets rib pain on pharmacological stress test was recommended. Patient had nuclear stress testing is not yet reported. Serial troponins are elevated but did not show increasing trend. 05/23: ACS ruled out. No CO. Mild troponin elevation, etiology unclear and undetermined. 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 Serum magnesium level 2.7 high. Phosphorus 3.9. Patient estimated clearance around 15 mL/min. There is no significant difference in creatinine of last 2 days. Usually patient creatinine runs around 2.3-2.5 last 3 years. 05/23: Creatinine clearance 18 mL/min, mild improvement in creatinine. #5 ischemic cardiomyopathy-complicates care, recovery, management and prognosis, patient will remain on his present medications And 22 reported EF 35% with moderate LVH, with no significant change compared to previous study. #6 type 2 diabetes: Glucoses 132. Accu-Chek SNS coverage and sliding scale #7 chronic atrial fibrillation-patient is on Eliquis #8 hypercoagulable state secondary to chronic atrial fibrillation-patient is on Eliquis #9 expiratory wheezing-chest x-ray no acute cardiopulmonary abnormality. Chest x-ray individually reviewed. Continue baseline home dose of Lasix. Microbiology Past 72 Hours 05/21/22 17:38 Mucosa - Nasopharyngeal Respiratory Panel (PCR) - Final Laboratory Results 05/23/22 06:50: Sodium 136, Potassium 3.9, Chloride 107, Carbon Dioxide 20.0 L, Anion Gap 9, BUN 41 H, Creatinine 2.88 H, Estim Creat Clear Calc 18.41, Est GFR (MDRD) Af Amer 27 L, Est GFR (MDRD) Non-Af 22 L, BUN/Creatinine Ratio 14.2, Glucose 136 H, Calcium 9.1 05/23/22 07:19: WBC 5.6, RBC 3.88 L, Hgb 12.1 L, Hct 38.7 L, MCV 99.7 H, MCH 31.2, MCHC 31.3 L, RDW Std Deviation 48.1 H, RDW Coeff of Roger 13.1, Plt Count 113 L, MPV 10.4, Immature Gran % (Auto) 0.500, Neut % (Auto) 72.6 H, Lymph % (Auto) 14.0 L, Aiken % (Auto) 10.9 H, Eos % (Auto) 1.6, Baso % (Auto) 0.4, Absolute Neuts (auto) 4.1, Absolute Lymphs (auto) 0.78 L, Nucleated RBC % 0 Clinical Impression(s) from Imaging Studies Chest CT 05/21/22 14:46 IMPRESSION: 1. No acute pulmonary abnormality. 2. Moderate cardiomegaly. 3. Cholelithiasis Electronically Signed: Mika Topete MD at 15:23 EST , Clinical Impression(s) from Imaging Studies Chest CT 05/21/22 14:46 IMPRESSION: 1. No acute pulmonary abnormality. 2. Moderate cardiomegaly. 3. Cholelithiasis Electronically Signed: Mika Topete MD at 15:23 EST , Charges/Coding Visit Charges Inpatient E&M: 88843 Subs Hosp L2
[2022-05-24] VITALS (9 sets, daily range): BP systolic 86–103; BP diastolic 58–64; PULSE 69–73; RESP 16–20; TEMP 36.4–37.5; O2SAT 93–99
[2022-05-24 05:40] LABS: Absolute Lymphocyte Count 0.95 X10^3/uL (0.83-4.51); Absolute Neutrophil Count 2.5 X10^3/uL (2.0-7.7); Basophil# 0.02 X10^3/uL; Basophil% 0.5 % (0-1); Eosinophil# 0.18 X10^3/uL; Eosinophils% 4.4 % (0-5); Hemoglobin 12.8 g/dL (13.0-16.5); Lymphocyte # 0.95 X10^3/ul (0.83-4.51); Lymphocyte % 23.3 % (19-41); Mean Corp Hgb Conc 32.8 g/dL (32-36); Mean Corpuscular Hgb 32.7 pg (27.0-32.0); Mean Corpuscular Volume 99.7 fL (80-94); Mean Platelet Vol. 10.7 fl (6.2-12.0); Monocyte# 0.42 X10^3/uL; Monocyte% 10.3 % (0-10); NRBC Flagged by Analyzer 0 % (0-5); Neutrophil # 2.48 X10^3/uL (2.7-7.7); Platelet Count 119 K/mm3 (150-450); RBC Distribution Width CV 12.9 % (11.6-14.6); RBC Distribution Width SD 47.5 fl (35.1-43.9); Red Blood Count 3.91 M/mm3 (4.6-6.2); White Blood Count 4.1 K/mm3 (4.4-11.0)
[2022-05-24 06:24] LABS: Anion Gap 9 (5-15); BUN 48 mg/dL (7-18); BUN/Creat Ratio 15.9 RATIO (10-20); Calcium,Total 9.5 mg/dL (8.5-10.1); Chloride 104 mmol/L (98-107); Creatinine, Serum 3.02 mg/dL (0.70-1.30); EST Glomerular Filtration Rate 21 mL/min (>60); Est Glom Filt Rate - Afr Amer 25 mL/min (>60); Estimated Creatinine Clearance 17.56 ml/min; Glucose 136 mg/dL (74-106); Potassium 3.3 mmol/L (3.5-5.1); Sodium Level 141 mmol/L (136-145)
[2022-05-24] MEDS: Furosemide 80 MG Tablet PO (10:13)
[2022-05-24] MEDS: APIXABAN 2.5 MG TABLET (WCH) PO ×2 (10:13→21:38)
[2022-05-24] MEDS: SACUBITRIL/VALSARTAN 24/26 MG TABLET 1 EACH PO ×2 (10:13→21:38)
[2022-05-24] MEDS: guaiFENesin/D-Methorphan TAB.SR.12H 1 TABLET PO ×2 (10:13→21:38)
[2022-05-24] MEDS: Aspirin 81 MG TAB.CHEW PO (10:13)
[2022-05-24] MEDS: Multivitamin (Healthy Eyes) Capsule 1 CAP PO ×2 (10:13→17:42)
[2022-05-24] MEDS: Sertraline 50 MG Tablet PO (10:13)
[2022-05-24] MEDS: Isosorbide Mononitrate 60 MG Tablet PO (10:13)
[2022-05-24] MEDS: Folic Acid 1 MG Tablet PO (10:14)
--- NOTE | 2022-05-24 10:19 | PN.HOSP_ITS ---
Subjective Subjective Patient seen and examined. He had a flat affect. He had no active complaints and denied any fever, chills, cough, chest pain, nausea, vomiting or diarrhea. REview of systems is otherwise negative. Objective Data Objective Data Vital Signs: Vital Signs Temp Pulse Resp BP Pulse Ox O2 Del Method O2 Flow Rate 97.8 F 71 16 100/63 95 Room Air 2 05/24/22 10:03 05/24/22 10:03 05/24/22 10:03 05/24/22 10:03 05/24/22 10:03 05/24/22 10:03 05/22/22 17:39 Oxygen Flow Rate (L/min) 2 Oxygen Delivery Method Room Air Weight: 198 lb 13.711 oz Body Mass Index (BMI) 29.3 Intake & Output: Intake and Output for Last 24 Hours 05/22/22 05/23/22 05/24/22 23:59 23:59 23:59 Intake Total 200 / 450 890 / 890 Output Total 375 / 375 Balance 200 / 250 515 / 515 Lab / Micro Data Result Diagrams: 05/24/22 05:25 05/24/22 05:25 Labs: Laboratory Results - last 24 hr 05/24/22 05:25: WBC 4.1 L, RBC 3.91 L, Hgb 12.8 L, Hct 39.0 L, MCV 99.7 H, MCH 32.7 H, MCHC 32.8, RDW Std Deviation 47.5 H, RDW Coeff of Roger 12.9, Plt Count 119 L, MPV 10.7, Immature Gran % (Auto) 0.500, Neut % (Auto) 61.0, Lymph % (Auto) 23.3, [place] % (Auto) 10.3 H, Eos % (Auto) 4.4, Baso % (Auto) 0.5, Absolute Neuts (auto) 2.5, Absolute Lymphs (auto) 0.95, Nucleated RBC % 0 05/24/22 05:25: Sodium 141, Potassium 3.3 L, Chloride 104, Carbon Dioxide 28.0, Anion Gap 9, BUN 48 H, Creatinine 3.02 H, Estim Creat Clear Calc 17.56, Est GFR (MDRD) Af Amer 25 L, Est GFR (MDRD) Non-Af 21 L, BUN/Creatinine Ratio 15.9, Glucose 136 H, Calcium 9.5 Micro: Microbiology 05/21/22 17:38 Mucosa - Nasopharyngeal Respiratory Panel (PCR) - Final Physical Exam Const alert, no apparent distress and average body habitus Constitutional Narrative: flat affect HEENT head/scalp atraumatic, moist oral mucous membranes and oropharynx normal Head and Scalp: normocephalic Mouth: oral and palatal mucosa normal Eyes PERRL, EOMs intact bilaterally and conjunctivae normal Neck no lymphadenopathy, supple and no JVD Resp normal respiratory effort, no retractions, no use of accessory muscles and clear to auscultation bilaterally Cardio regular rate, regular rhythm, S1 normal heart sound, S2 normal heart sound and no murmurs GI normal to inspection, nondistended, normoactive bowel sounds, soft to palpation, non-tender and non-distended Extremity normal to inspection, full ROM and no clubbing, cyanosis or edema Extremity Narrative: intact dressing over left willson Neuro CN's II-XII intact bilaterally, moves all extremities and no focal motor deficits Neuro Narrative: has some confusion Sensorium / Orientation: awake and alert Psych Psych Narrative: flat affect Assessment & Plan Assessment/Plan (1) Debility: (2) Weakness: PLAN: Plan #Debility due to mechanical falls with failure to thrive * PT/OT on board. * fall precautions * #Elevated troponin * had no chest pain today * had stress testwhich is negative for any evidence of ischemia. 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 * will monitor * #CAD: on aspirin, imdur nad metoprolol as well as statin #CKD IV: trend CR. WIll monitor. 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 ISS> Accuchecks ACHS * #Afib * on eliquis * #HFrEF: not in exacerbation. On entresto and furosemide #DVT prophylaxis: not indicated as he is already o eliquis Disposition: will benefit from placement. Case management on board. Charges/Coding Visit Charges Inpatient E&M: 37453 Subs Hosp L2
[2022-05-25] VITALS (12 sets, daily range): BP systolic 105–132; BP diastolic 56–78; PULSE 69–71; RESP 16–20; TEMP 36.3–37; O2SAT 94–97
[2022-05-25 06:26] LABS: Absolute Lymphocyte Count 1.16 X10^3/uL (0.83-4.51); Absolute Neutrophil Count 2.7 X10^3/uL (2.0-7.7); Basophil# 0.01 X10^3/uL; Basophil% 0.2 % (0-1); Eosinophil# 0.18 X10^3/uL; Eosinophils% 3.9 % (0-5); Hematocrit 41.9 % (40-54); Hemoglobin 13.5 g/dL (13.0-16.5); Lymphocyte # 1.16 X10^3/ul (0.83-4.51); Lymphocyte % 25.4 % (19-41); Mean Corp Hgb Conc 32.2 g/dL (32-36); Mean Corpuscular Hgb 31.5 pg (27.0-32.0); Mean Corpuscular Volume 97.9 fL (80-94); Mean Platelet Vol. 10.7 fl (6.2-12.0); Monocyte# 0.47 X10^3/uL; Monocyte% 10.3 % (0-10); NRBC Flagged by Analyzer 0 % (0-5); Neutrophil # 2.73 X10^3/uL (2.7-7.7); Neutrophil % 59.8 % (47-70); Platelet Count 134 K/mm3 (150-450); RBC Distribution Width CV 12.7 % (11.6-14.6); RBC Distribution Width SD 45.7 fl (35.1-43.9); Red Blood Count 4.28 M/mm3 (4.6-6.2); White Blood Count 4.6 K/mm3 (4.4-11.0)
[2022-05-25 06:50] LABS: Anion Gap 9 (5-15); BUN 53 mg/dL (7-18); BUN/Creat Ratio 18.2 RATIO (10-20); Calcium,Total 9.5 mg/dL (8.5-10.1); Chloride 104 mmol/L (98-107); Creatinine, Serum 2.91 mg/dL (0.70-1.30); EST Glomerular Filtration Rate 22 mL/min (>60); Est Glom Filt Rate - Afr Amer 27 mL/min (>60); Estimated Creatinine Clearance 18.22 ml/min; Glucose 123 mg/dL (74-106); Potassium 3.2 mmol/L (3.5-5.1); Sodium Level 137 mmol/L (136-145)
--- NOTE | 2022-05-25 09:50 | PN.HOSP_ITS ---
Subjective Subjective Patient seen and examined. He was comfortably eating breakfast.He had no active complaints and had an uneventful night. REview of systems is otherwise negative. Objective Data Objective Data Vital Signs: Vital Signs Temp Pulse Resp BP Pulse Ox O2 Del Method O2 Flow Rate 97.4 F L 70 18 113/78 96 Room Air 2 05/25/22 06:04 05/25/22 07:00 05/25/22 06:04 05/25/22 06:04 05/25/22 06:04 05/25/22 06:04 05/22/22 17:39 Oxygen Flow Rate (L/min) 2 Oxygen Delivery Method Room Air Weight: 198 lb 13.711 oz Body Mass Index (BMI) 29.3 Intake & Output: Intake and Output for Last 24 Hours 05/23/22 05/24/22 05/25/22 23:59 23:59 23:59 Intake Total 890 / 890 630 / 750 120 / 120 Output Total 375 / 375 Balance 515 / 515 630 / 750 120 / 120 Lab / Micro Data Result Diagrams: 05/25/22 05:51 05/25/22 05:51 Labs: Laboratory Results - last 24 hr 05/25/22 05:51: WBC 4.6, RBC 4.28 L, Hgb 13.5, Hct 41.9, MCV 97.9 H, MCH 31.5, MCHC 32.2, RDW Std Deviation 45.7 H, RDW Coeff of Roger 12.7, Plt Count 134 L, MPV 10.7, Immature Gran % (Auto) 0.400, Neut % (Auto) 59.8, Lymph % (Auto) 25.4, [place] % (Auto) 10.3 H, Eos % (Auto) 3.9, Baso % (Auto) 0.2, Absolute Neuts (auto) 2.7, Absolute Lymphs (auto) 1.16, Nucleated RBC % 0 05/25/22 05:51: Sodium 137, Potassium 3.2 L, Chloride 104, Carbon Dioxide 24.0, Anion Gap 9, BUN 53 H, Creatinine 2.91 H, Estim Creat Clear Calc 18.22, Est GFR (MDRD) Af Amer 27 L, Est GFR (MDRD) Non-Af 22 L, BUN/Creatinine Ratio 18.2, Glucose 123 H, Calcium 9.5 Micro: Microbiology 05/21/22 17:38 Mucosa - Nasopharyngeal Respiratory Panel (PCR) - Final Physical Exam Const alert, oriented x3, no apparent distress, average body habitus and healthy appearing Constitutional Narrative: flat affect General Appearance: cooperative, well kempt and well developed Orientation / Consciousness: awake, oriented to person, oriented to place and oriented to time HEENT normocephalic, head/scalp atraumatic, moist oral mucous membranes and oropharynx normal Head and Scalp: normocephalic Mouth: oral and palatal mucosa normal Eyes PERRL, EOMs intact bilaterally and conjunctivae normal Neck no lymphadenopathy, supple, no JVD, thyroid normal and no carotid bruits General: trachea midline Resp normal respiratory effort, no retractions, no use of accessory muscles and clear to auscultation bilaterally Resp Narrative: Patient has expiratory wheezes scattered over both lungs Auscultation: wheezes throughout; Negative for rales or rhonchi Cardio regular rate, regular rhythm, S1 normal heart sound, S2 normal heart sound, no murmurs, no rub and no gallops Cardio Narrative: Patient has a paced rhythm GI normal to inspection, nondistended, normoactive bowel sounds, soft to palpation, non-tender and non-distended Extremity normal to inspection, full ROM and no clubbing, cyanosis or edema Extremity Narrative: intact dressing over left willson Skin no rashes or lesions noted General Skin Exam: no breakdown Neuro oriented x3, CN's II-XII intact bilaterally, moves all extremities, no focal motor deficits and no sensory deficits noted Neuro Narrative: has some confusion Sensorium / Orientation: awake, alert, oriented to person, oriented to place and oriented to time Speech: speech normal Psych Psych Narrative: flat affect Assessment & Plan Assessment/Plan (1) Debility: (2) Weakness: PLAN: Plan #Debility due to mechanical falls with failure to thrive * PT/OT on board. * fall precautions * #Elevated troponin * had stress test which is negative for any evidence of ischemia. 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 * will monitor * #CAD: on aspirin, imdur and metoprolol as well as statin #CKD IV: trend Cr. Cr has stabilised. WIll monitor. 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 ISS> Accuchecks ACHS * #Afib * on eliquis * #HFrEF: not in exacerbation. On entresto and furosemide #DVT prophylaxis: not indicated as he is already o therese Disposition: awaiting placement Charges/Coding Visit Charges Inpatient E&M: 14977 Subs Hosp L2
[2022-05-25] MEDS: Aspirin 81 MG TAB.CHEW PO (10:22)
[2022-05-25] MEDS: APIXABAN 2.5 MG TABLET (WCH) PO ×2 (10:22→21:26)
[2022-05-25] MEDS: SACUBITRIL/VALSARTAN 24/26 MG TABLET 1 EACH PO ×2 (10:22→21:26)
[2022-05-25] MEDS: Isosorbide Mononitrate 60 MG Tablet PO (10:22)
[2022-05-25] MEDS: Folic Acid 1 MG Tablet PO (10:22)
[2022-05-25] MEDS: Sertraline 50 MG Tablet PO (10:22)
[2022-05-25] MEDS: Potassium Chloride Oral Tablet 20 MEQ 40 MEQ PO (10:22)
[2022-05-25] MEDS: guaiFENesin/D-Methorphan TAB.SR.12H 1 TABLET PO ×2 (10:22→21:26)
[2022-05-25] MEDS: Furosemide 80 MG Tablet PO ×2 (10:22→17:19)
[2022-05-25] MEDS: Multivitamin (Healthy Eyes) Capsule 1 CAP PO ×2 (10:22→17:19)
--- NOTE | 2022-05-25 15:05 | TREXTCAR_ITS ---
Diet Diet Order/Speech Therapy: 05/22/22 15:52 Diet: Cardiac - Heart Healthy Food consistency:: Regular Liquid Consistency:: Regular/Thin Is pt able to select menu?: Yes Routine Orders/Code Status Enema Type: Fleetz Enema Frequency: Daily PRN Suppository Type: Dulcolax 10mg Suppository Frequency: Daily PRN O2 Frequency: PRN Keep PO Greater than or Equal to (%): 90 Wound(s) BL Shins: Wound Type: Skin Tear Therapies Weight Bearing: Weight bearing as tolerated Physical Therapy: Eval and Treat Occupational Therapy: Eval and Treat Problem/Diagnosis (1) Debility: Status: Acute Code(s): R53.81 - Other malaise (2) Weakness: Status: Acute Code(s): R53.1 - Weakness Plan #Debility due to mechanical falls with failure to thrive * PT/OT on board. * fall precautions * #Elevated troponin * had stress test which is negative for any evidence of ischemia. 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 * will monitor * #CAD: on aspirin, imdur and metoprolol as well as statin #CKD IV: trend Cr. Cr has stabilised. WIll monitor. 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 ISS> Accuchecks ACHS * #Afib * on eliquis * #HFrEF: not in exacerbation. On entresto and furosemide #DVT prophylaxis: not indicated as he is already o eliquis Disposition: awaiting placement Allergies/Procedures Done in Hospital Allergies clarithromycin [From Biaxin] Allergy (Verified 05/21/22 12:53) PT UNSURE OF REACTION quinapril Allergy (Verified 05/21/22 12:53) Angioedema Wfclesp-ROT-FlT Reductase Inhibitor [Tatygzd-Pjh-Pyd Reductase Inhibitor] Allergy (Verified 05/21/22 12:53) Hives and myalgias valsartan [From Diovan] Allergy (Verified 05/21/22 12:53) PT UNSURE OF REACTION ezetimibe [From Zetia] Adverse Reaction (Verified 05/21/22 12:53) diarrhea simvastatin [From Vytorin] Adverse Reaction (Verified 05/21/22 12:53) PT UNSURE OF REACTION Procedures: Nuclear Stress Test Type of Care/Length of Stay Estimated LOS: Convalescent Care Less Than 30 days Type of Care Needed: Skilled Rehab Potential: Fair Prognosis: Fair Additional Orders/Day of Discharge Day of Discharge: 05/25/22 Discharge Plan Admission Admit Date/Time: 05/21/22 17:14 Primary Reason for Your Visit: debility and weakness Attending Provider: Zandra Pope Primary Care Provider: Perry Olivas Consulting Providers: Demarco Garcia ; Michael Pugh Instructions Patient Instructions: ED Weakness (Uncertain Cause) Discharge Orders/Prescriptions Prescriptions: New potassium chloride 20 mEq tablet extended release 20 meq PO DAILY Qty: 30 1RF Continued coenzyme Q10 [Co Q-10] 100 mg capsule 100 mg PO DAILY sertraline 50 mg tablet 50 mg PO DAILY Qty: 60 3RF (DME) Handicap Plaquard Qty: 1 0RF Dose Instruction: As directed Rx Instructions: Disability will last 4 years Expires 05/19/2023 rosuvastatin 10 mg tablet 10 mg PO DAILY clobetasol 0.05 % solution 1 applic topical QAM AND QPM PRN (Reason: LESION) cholecalciferol (vitamin D3) 125 mcg (5,000 unit) tablet 125 mcg PO DAILY PreserVision AREDS [id number] jztz-[id number] capsule 1 cap PO BID nitroglycerin 0.4 mg tablet, sublingual 0.4 mg SUBLINGUAL Q5-15M PRN (Reason: Cardiac/Chest Pain) Qty: 25 3RF furosemide [Lasix] 40 mg tablet 40 mg PO .COMPLEX Rx Instructions: 40 mg PO 80 mg (2 tablets) in the am and 40 mg (1 tablet) 4 hours later; aspirin 81 MG tablet,chewable 81 mg PO DAILY Eliquis 2.5 mg tablet 2.5 mg PO BID isosorbide mononitrate 60 mg tablet extended release 24 hr 60 mg PO DAILY Qty: 90 4RF metoprolol succinate 25 mg tablet extended release 24 hr 25 mg PO DAILY Qty: 90 3RF folic acid 1 mg tablet 1 mg PO QDAY Qty: 90 3RF sacubitril-valsartan 24-26 mg tablet 1 tab PO BID Qty: 180 3RF Referrals / Follow Up: Perry Olivas MD [Primary Care Provider] - Within 1 Week Disposition Disposition (needs filled in before D/C Order can be placed): [facility]
--- NOTE | 2022-05-25 15:09 | DS.PCM_ITS ---
Providers Date of Admission: 05/21/22 Date of Discharge: 05/25/22 Primary Care Physician: Dr. Perry Olivas MD Reason For Visit: DEBILITY / ELEVATED TROPONIN Diagnosis Discharge Diagnosis (1) Debility: Status: Acute Code(s): R53.81 - Other malaise (2) Weakness: Status: Acute Code(s): R53.1 - Weakness Plan #Debility due to mechanical falls with failure to thrive * PT/OT on board. * fall precautions * #Elevated troponin * had stress test which is negative for any evidence of ischemia. 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 * will monitor * #CAD: on aspirin, imdur and metoprolol as well as statin #CKD IV: trend Cr. Cr has stabilised. WIll monitor. 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 ISS> Accuchecks ACHS * #Afib * on eliquis * #HFrEF: not in exacerbation. On entresto and furosemide #DVT prophylaxis: not indicated as he is already o eliquis Disposition: awaiting placement Medications at Discharge Home Medications aspirin 81 mg chewable tablet 81 mg PO DAILY 06/30/17 coenzyme Q10 100 mg capsule (Co Q-10) 100 mg PO DAILY 11/13/18 sertraline 50 mg tablet 50 mg PO DAILY #60 tabs 11/13/18 Handicap Plaquard #1 ea 05/19/19 cholecalciferol (vitamin D3) 125 mcg (5,000 unit) tablet 125 mcg PO DAILY 01/05/21 clobetasol 0.05 % scalp solution 1 applic topical QAM AND QPM PRN LESION 01/05/21 rosuvastatin 10 mg tablet 10 mg PO DAILY 01/05/21 vitamins A,C,R-eivc-tyozdx 14,320 unit-226 mg-200 unit capsule (PreserVision AREDS) 1 cap PO BID 01/05/21 nitroglycerin 0.4 mg sublingual tablet 0.4 mg sublingual Q5-15M PRN Cardiac/Chest Pain #25 tabs 02/17/21 isosorbide mononitrate 60 mg tablet,extended release 24 hr 60 mg PO DAILY #90 tabs 04/26/21 metoprolol succinate 25 mg tablet,extended release 24 hr 25 mg PO DAILY Dose was decreased #90 tabs 07/11/21 folic acid 1 mg tablet 1 mg PO QDAY #90 tabs 09/27/21 sacubitril 24 mg-valsartan 26 mg tablet 1 tab PO BID #180 tabs 11/15/21 furosemide 40 mg tablet (Lasix) 40 mg PO .COMPLEX this is a dose increase 03/20/22 apixaban 2.5 mg tablet (Eliquis) 2.5 mg PO BID BLOOD THINNER 05/21/22 potassium chloride 20 mEq tablet,extended release 20 meq PO DAILY #30 tabs 05/25/22 Hospital Course Operations None Procedures Nuclear stress test Summary of Care Provided Minutes Spent on Discharge: 45 Hospital Course: Patient is an 86-year-old male with past medical history as outlined was admitted to the ED after he presented with a complaint of 2 mechanical falls. These falls occurred at home he felt his legs were too weak and could not move properly. He also complained of some chest pain. On admission he was found to have elevated troponin. BNP was also elevated at 1183. CT of the chest was negative for any evidence of PE. He was hydrated and admitted for debility and failure to thrive with falls as well as elevated troponin. PT OT were consulted. Patient had a stress test which was negative for any evidence of acute ischemia. He worked with PT OT remained stable in the hospital. He was discharged to half-way facility on 05/25/2022. He is to follow-up with his primary care doctor and with cardiology to decide whether to discontinue Eliquis or not. Patient is going to a controlled environment in the senior care where he will be more closely monitored for falls. Patient seen and examined prior to discharge. He had no active complaints and was eating breakfast. He had an uneventful night and review of systems otherwise negative. Labs and vitals reviewed. Medication reviewed and reconciled. Physical Exam Const alert, oriented x3, no apparent distress, average body habitus, no limitations and healthy appearing Constitutional Narrative: flat affect General Appearance: cooperative, comfortable, well kempt and well developed Orientation / Consciousness: awake, oriented to person, oriented to place and oriented to time HEENT normocephalic, head/scalp atraumatic, hearing grossly normal bilaterally, moist oral mucous membranes and oropharynx normal Mouth: oral and palatal mucosa normal Eyes PERRL, EOMs intact bilaterally and conjunctivae normal Neck no lymphadenopathy, supple, no JVD, thyroid normal and no carotid bruits General: trachea midline Resp normal respiratory effort, no retractions, no use of accessory muscles and clear to auscultation bilaterally Auscultation: wheezes throughout; Negative for rales or rhonchi Cardio regular rate, regular rhythm, S1 normal heart sound, S2 normal heart sound, no murmurs, no rub and no gallops Cardio Narrative: Patient has a paced rhythm GI normal to inspection, nondistended, normoactive bowel sounds, soft to palpation, non-tender and non-distended Extremity normal to inspection, full ROM and no clubbing, cyanosis or edema Extremity Narrative: intact dressing over left willson Skin no rashes or lesions noted General Skin Exam: no breakdown Neuro oriented x3, CN's II-XII intact bilaterally, moves all extremities, no focal motor deficits and no sensory deficits noted Neuro Narrative: has some confusion Sensorium / Orientation: awake, alert, oriented to person, oriented to place and oriented to time Speech: speech normal Psych affect normal Psych Narrative: flat affect Weight / BMI Weight Weight: 198 lb 13.711 oz Body Mass Index (BMI) 29.3 ABG / Lab / Microbiology Data Result Diagrams: 05/25/22 05:51 05/25/22 05:51 Laboratory: Laboratory Results - last 24 hr 05/25/22 05:51: WBC 4.6, RBC 4.28 L, Hgb 13.5, Hct 41.9, MCV 97.9 H, MCH 31.5, MCHC 32.2, RDW Std Deviation 45.7 H, RDW Coeff of Roger 12.7, Plt Count 134 L, MPV 10.7, Immature Gran % (Auto) 0.400, Neut % (Auto) 59.8, Lymph % (Auto) 25.4, Yates % (Auto) 10.3 H, Eos % (Auto) 3.9, Baso % (Auto) 0.2, Absolute Neuts (auto) 2.7, Absolute Lymphs (auto) 1.16, Nucleated RBC % 0 05/25/22 05:51: Sodium 137, Potassium 3.2 L, Chloride 104, Carbon Dioxide 24.0, Anion Gap 9, BUN 53 H, Creatinine 2.91 H, Estim Creat Clear Calc 18.22, Est GFR (MDRD) Af Amer 27 L, Est GFR (MDRD) Non-Af 22 L, BUN/Creatinine Ratio 18.2, Glucose 123 H, Calcium 9.5 Microbiology: Microbiology 05/21/22 17:38 Mucosa - Nasopharyngeal Respiratory Panel (PCR) - Final D/C Instructions Discharge Diet: Low fat / Low cholesterol Discharge Activity: Return to Normal Activity Weight Bearing Status: Weight bearing as tolerated Call your doctor if you observe: Fever of 101 or Higher, Shortness of breath, Dizziness, Fainting spells, Swelling in the ankles, Chest pain and Increased palpitations (irregular heartbeat) Meaningful Use Info Meaningful Use Diagnoses (Choose all that apply): None applicable Discharge Plan Admission Admit Date/Time: 05/21/22 17:14 Primary Reason for Your Visit: debility and weakness Attending Provider: Zandra Pope Primary Care Provider: Perry Olivas Consulting Providers: Demarco Garcia ; Michael Pugh Instructions Patient Instructions: ED Weakness (Uncertain Cause) Discharge Orders/Prescriptions Prescriptions: New potassium chloride 20 mEq tablet extended release 20 meq PO DAILY Qty: 30 1RF Continued coenzyme Q10 [Co Q-10] 100 mg capsule 100 mg PO DAILY sertraline 50 mg tablet 50 mg PO DAILY Qty: 60 3RF (DME) Handicap Plaquard Qty: 1 0RF Dose Instruction: As directed Rx Instructions: Disability will last 4 years Expires 05/19/2023 rosuvastatin 10 mg tablet 10 mg PO DAILY clobetasol 0.05 % solution 1 applic topical QAM AND QPM PRN (Reason: LESION) cholecalciferol (vitamin D3) 125 mcg (5,000 unit) tablet 125 mcg PO DAILY PreserVision AREDS [id number] avyx-ic-lmwm capsule 1 cap PO BID nitroglycerin 0.4 mg tablet, sublingual 0.4 mg SUBLINGUAL Q5-15M PRN (Reason: Cardiac/Chest Pain) Qty: 25 3RF furosemide [Lasix] 40 mg tablet 40 mg PO .COMPLEX Rx Instructions: 40 mg PO 80 mg (2 tablets) in the am and 40 mg (1 tablet) 4 hours later; aspirin 81 MG tablet,chewable 81 mg PO DAILY Eliquis 2.5 mg tablet 2.5 mg PO BID isosorbide mononitrate 60 mg tablet extended release 24 hr 60 mg PO DAILY Qty: 90 4RF metoprolol succinate 25 mg tablet extended release 24 hr 25 mg PO DAILY Qty: 90 3RF folic acid 1 mg tablet 1 mg PO QDAY Qty: 90 3RF sacubitril-valsartan 24-26 mg tablet 1 tab PO BID Qty: 180 3RF Referrals / Follow Up: Perry Olivas MD [Primary Care Provider] - Within 1 Week Disposition Disposition (needs filled in before D/C Order can be placed): Snf Facility Charges/Coding Visit Charges Inpatient E&M: 30168 Disch Hosp
--- NOTE | 2022-05-25 15:41 | CASEMGMT ---
Social work SW completed 7000 convalescent form and uploaded to [facility]. SW faxed 7000 and discharge summary to [facility] via [facility]. SW made [facility] aware that Covid test and transport information was pending at this time. RONALDO Bejarano
--- NOTE | 2022-05-25 15:55 | CASEMGMT ---
RN CM in to discuss transfer to [facility] with patient and son. Son is comfortable with transporting patient to [facility]. RN CM updated nurse and charge nurse regarding family transporting patient. Per charge nurse, discharge instructions and med list have been faxed to [facility]. CM remains available for assistance.
--- NOTE | 2022-05-25 16:28 | CASEMGMT ---
Addendum entered by Dhaval Barcenas 05/25/22 16:33: Per [facility] unable to accept pt. SULLY Whittpainter barrel, states she will notify Dr Pope. Original Note: SULLY DAVIS NOTE: Informed by SULLY Whitt CM, that pt's COVID test came back positive. [facility], made aware. Sukhjinder BAEZ RN CM
--- NOTE | 2022-05-25 17:00 | CASEMGMT ---
Social Work PCU Spoke with Nina, scheduling administrator at [facility] who reports has obtained precert for patient. [facility] can accept patient today. Called patient's to update. reports to be at home with a terrible cold so not visiting today. Updated to insurance approval. asked about transport. This engineering technical writer reviewed therapy notes and discussed with that ambulance may not cover as it does not appear patient is bed bound. Broached ambulette/private pay or family transport. reports the son is visiting and may be able to transport. This engineering technical writer spoke with Melanie Gutierrez RN, CM about checking with patient and son regarding transport. Per Melanie, the son is able to transport. Provided Melanie with number to fax orders and handoff number for RN to RN report. Received call from Dhaval Navarro RN, CM who reports patient is now COVID positive. This engineering technical writer called Nina back at [facility]. [facility] is unable to accept COVID positive patients for 10 days. Updated Darletta. This engineering technical writer noted that patient is showing as observation status. 0700 will not be valid for SNF admission, and will have to complete a PASRR. Plan: Social work to follow and check back with patient and family for next choices and determine whether there are any facilities in the insurance network accepting COVID positive patients. Due to observation status, need to complete PASRR for SNF admission. -EMIGDIO Mead, LINDA
[2022-05-25] MEDS: Acetaminophen 325 MG Tablet 650 MG PO (21:26)
[2022-05-26] VITALS (8 sets, daily range): BP systolic 101–124; BP diastolic 56–89; PULSE 69–72; RESP 16–20; TEMP 35.6–37.4; O2SAT 96–99
[2022-05-26 08:06] LABS: Anion Gap 9 (5-15); BUN 50 mg/dL (7-18); BUN/Creat Ratio 19.7 RATIO (10-20); Calcium,Total 9.5 mg/dL (8.5-10.1); Chloride 105 mmol/L (98-107); Creatinine, Serum 2.54 mg/dL (0.70-1.30); EST Glomerular Filtration Rate 26 mL/min (>60); Est Glom Filt Rate - Afr Amer 31 mL/min (>60); Estimated Creatinine Clearance 20.88 ml/min; Glucose 129 mg/dL (74-106); Potassium 3.3 mmol/L (3.5-5.1); Sodium Level 140 mmol/L (136-145)
[2022-05-26] MEDS: Aspirin 81 MG TAB.CHEW PO (09:23)
[2022-05-26] MEDS: Multivitamin (Healthy Eyes) Capsule 1 CAP PO ×2 (09:23→17:19)
[2022-05-26] MEDS: Folic Acid 1 MG Tablet PO (09:23)
[2022-05-26] MEDS: Sertraline 50 MG Tablet PO (09:23)
[2022-05-26] MEDS: APIXABAN 2.5 MG TABLET (WCH) PO ×2 (09:23→21:04)
[2022-05-26] MEDS: SACUBITRIL/VALSARTAN 24/26 MG TABLET 1 EACH PO ×2 (09:23→21:04)
[2022-05-26] MEDS: Isosorbide Mononitrate 60 MG Tablet PO (09:24)
[2022-05-26] MEDS: Furosemide 80 MG Tablet PO ×2 (09:24→17:19)
[2022-05-26] MEDS: guaiFENesin/D-Methorphan TAB.SR.12H 1 TABLET PO ×2 (09:24→21:04)
--- NOTE | 2022-05-26 09:43 | PN.HOSP_ITS ---
Subjective Subjective Patient seen and examined. HE had no active complaints today. He was due to be discharged to SNF yesterday, but this was cancelled after he tested positive for covid. HE denies any shortness of breath, cough, chest pain, palpitations, dizziness, nausea, vomiting or diarrhea. REview of systems is otherwise negative. Objective Data Objective Data Vital Signs: Vital Signs Temp Pulse Resp BP Pulse Ox O2 Del Method O2 Flow Rate 97.0 F L 69 16 112/56 L 97 Room Air 2 05/26/22 09:22 05/26/22 09:22 05/26/22 09:22 05/26/22 09:22 05/26/22 09:22 05/26/22 09:22 05/22/22 17:39 Oxygen Flow Rate (L/min) 2 Oxygen Delivery Method Room Air Weight: 198 lb 13.711 oz Body Mass Index (BMI) 29.3 Intake & Output: Intake and Output for Last 24 Hours 05/24/22 05/25/22 05/26/22 23:59 23:59 23:59 Intake Total 630 / 750 920 / 1160 290 / 290 Balance 630 / 750 920 / 1160 290 / 290 Lab / Micro Data Result Diagrams: 05/25/22 05:51 05/26/22 07:20 Labs: Laboratory Results - last 24 hr 05/26/22 07:20: Sodium 140, Potassium 3.3 L, Chloride 105, Carbon Dioxide 26.0, Anion Gap 9, BUN 50 H, Creatinine 2.54 H, Estim Creat Clear Calc 20.88, Est GFR (MDRD) Af Amer 31 L, Est GFR (MDRD) Non-Af 26 L, BUN/Creatinine Ratio 19.7, Glucose 129 H, Calcium 9.5 Micro: Microbiology 05/25/22 15:40 Nasal Secretion SARS-CoV-2 Antigen (Rapid) - Final SARS-CoV-2 (COVID 19) 05/21/22 17:38 Mucosa - Nasopharyngeal Respiratory Panel (PCR) - Final Physical Exam Const alert, oriented x3, no apparent distress, average body habitus, no limitations and healthy appearing Constitutional Narrative: flat affect General Appearance: cooperative, comfortable, well kempt and well developed Orientation / Consciousness: awake, oriented to person, oriented to place and oriented to time HEENT normocephalic, head/scalp atraumatic, hearing grossly normal bilaterally, moist oral mucous membranes and oropharynx normal Head and Scalp: normocephalic Eyes PERRL, EOMs intact bilaterally and conjunctivae normal Neck no lymphadenopathy, supple, no JVD, thyroid normal and no carotid bruits General: trachea midline Resp normal respiratory effort, no retractions, no use of accessory muscles and clear to auscultation bilaterally Resp Narrative: on room air Auscultation: wheezes throughout; Negative for rales or rhonchi Cardio regular rate, regular rhythm, S1 normal heart sound, S2 normal heart sound, no murmurs, no rub and no gallops Cardio Narrative: Patient has a paced rhythm GI normal to inspection, nondistended, normoactive bowel sounds, soft to palpation, non-tender and non-distended Extremity normal to inspection, full ROM and no clubbing, cyanosis or edema Extremity Narrative: intact dressing over left willson Skin no rashes or lesions noted General Skin Exam: no breakdown Neuro oriented x3, CN's II-XII intact bilaterally, moves all extremities, no focal mot or deficits and no sensory deficits noted Sensorium / Orientation: awake, alert, oriented to person, oriented to place and oriented to time Speech: speech normal Psych affect normal Assessment & Plan Assessment/Plan (1) Weakness: PLAN: Plan #Debility due to mechanical falls with failure to thrive * PT/OT on board. * fall precautions * #Elevated troponin * had stress test which is negative for any evidence of ischemia. 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 * will monitor * #COVID infection * asymptomatic. Tested positive for covid on 05/25/2022 as part of pre admission screen for SNF * supportive care only. WIll monitor * #Hypokalemia: K is 3.3. Will replace and trend. #CAD: on aspirin, imdur and metoprolol as well as statin #CKD IV: trend Cr. Cr has stabilised. WIll monitor. 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 ISS. Accuchecks ACHS * #Afib * on eliquis * #HFrEF: not in exacerbation. On entresto and furosemide #DVT prophylaxis: not indicated as he is already on eliquis Disposition: awaiting placement Charges/Coding Visit Charges Inpatient E&M: 91482 Subs Hosp L2
[2022-05-26] MEDS: Potassium Chloride Oral Tablet 20 MEQ 40 MEQ PO (10:25)
[2022-05-26] MEDS: 0.9% Saline Lock 10 ML Syringe IV (21:04)
[2022-05-27] VITALS (9 sets, daily range): BP systolic 101–141; BP diastolic 42–72; PULSE 70–79; RESP 16–20; TEMP 36.7–37.7; O2SAT 93–96
[2022-05-27 07:03] LABS: Anion Gap 6 (5-15); BUN 44 mg/dL (7-18); BUN/Creat Ratio 18.5 RATIO (10-20); Calcium,Total 9.1 mg/dL (8.5-10.1); Chloride 105 mmol/L (98-107); Creatinine, Serum 2.38 mg/dL (0.70-1.30); EST Glomerular Filtration Rate 28 mL/min (>60); Est Glom Filt Rate - Afr Amer 34 mL/min (>60); Estimated Creatinine Clearance 22.28 ml/min; Glucose 138 mg/dL (74-106); Potassium 3.6 mmol/L (3.5-5.1); Sodium Level 138 mmol/L (136-145)
--- NOTE | 2022-05-27 09:46 | PN.HOSP_ITS ---
Subjective Subjective Patient seen and examined. HE had no complaints. He remains on room air. Review of systems is otherwise negative. Objective Data Objective Data Vital Signs: Vital Signs Temp Pulse Resp BP Pulse Ox O2 Del Method O2 Flow Rate 98.1 F 70 18 127/72 H 95 Room Air 2 05/27/22 05:51 05/27/22 07:00 05/27/22 05:51 05/27/22 05:51 05/27/22 05:51 05/27/22 05:51 05/22/22 17:39 Oxygen Flow Rate (L/min) 2 Oxygen Delivery Method Room Air Weight: 198 lb 13.711 oz Body Mass Index (BMI) 29.3 Intake & Output: Intake and Output for Last 24 Hours 05/25/22 05/26/22 05/27/22 23:59 23:59 23:59 Intake Total 920 / 1160 900 / 900 Output Total 200 / 200 Balance 920 / 1160 700 / 700 Lab / Micro Data Result Diagrams: 05/25/22 05:51 05/27/22 06:30 Labs: Laboratory Results - last 24 hr 05/27/22 06:30: Sodium 138, Potassium 3.6, Chloride 105, Carbon Dioxide 27.0, Anion Gap 6, BUN 44 H, Creatinine 2.38 H, Estim Creat Clear Calc 22.28, Est GFR (MDRD) Af Amer 34 L, Est GFR (MDRD) Non-Af 28 L, BUN/Creatinine Ratio 18.5, Glucose 138 H, Calcium 9.1 Micro: Microbiology 05/25/22 15:40 Nasal Secretion SARS-CoV-2 Antigen (Rapid) - Final SARS-CoV-2 (COVID 19) 05/21/22 17:38 Mucosa - Nasopharyngeal Respiratory Panel (PCR) - Final Physical Exam Const alert, oriented x3, no apparent distress, average body habitus, no limitations and healthy appearing Constitutional Narrative: flat affect General Appearance: cooperative, comfortable, well kempt and well developed Orientation / Consciousness: awake, oriented to person, oriented to place and oriented to time HEENT normocephalic, head/scalp atraumatic, hearing grossly normal bilaterally and moist oral mucous membranes Head and Scalp: normocephalic Mouth: oral and palatal mucosa normal Eyes PERRL, EOMs intact bilaterally and conjunctivae normal Neck no lymphadenopathy, supple, no JVD, thyroid normal and no carotid bruits General: trachea midline Resp normal respiratory effort, no retractions, no use of accessory muscles and clear to auscultation bilaterally Resp Narrative: on room air Auscultation: wheezes throughout; Negative for rales or rhonchi Cardio regular rate, regular rhythm, S1 normal heart sound, S2 normal heart sound, no murmurs, no rub and no gallops Cardio Narrative: Patient has a paced rhythm GI normal to inspection, nondistended, normoactive bowel sounds, soft to palpation, non-tender and non-distended Extremity normal to inspection, full ROM and no clubbing, cyanosis or edema Extremity Narrative: intact dressing over left willson Skin no rashes or lesions noted General Skin Exam: no breakdown Neuro oriented x3, CN's II-XII intact bilaterally, moves all extremities, no focal motor deficits and no sensory deficits noted Neuro Narrative: has some confusion Sensorium / Orientation: awake, alert, oriented to person, oriented to place and oriented to time Speech: speech normal Psych affect normal Psych Narrative: flat affect Assessment & Plan Assessment/Plan (1) Weakness: PLAN: Plan #Debility due to mechanical falls with failure to thrive * PT/OT on board. * fall precautions * #Elevated troponin * had stress test which is negative for any evidence of ischemia. 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 * will monitor * #COVID infection * asymptomatic. Tested positive for covid on 05/25/2022 as part of pre admission screen for SNF * supportive care only. WIll monitor * #Hypokalemia: resolved. K is 3.6 today #CAD: on aspirin, imdur and metoprolol as well as statin #CKD IV: trend Cr. Cr has stabilised. WIll monitor. 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 ISS. Accuchecks ACHS * #Afib * on eliquis * #HFrEF: not in exacerbation. On entresto and furosemide #DVT prophylaxis: not indicated as he is already on eliquis Disposition: awaiting placement Charges/Coding Visit Charges Inpatient E&M: 05461 Subs Hosp L2
[2022-05-27] MEDS: Aspirin 81 MG TAB.CHEW PO (10:29)
[2022-05-27] MEDS: Multivitamin (Healthy Eyes) Capsule 1 CAP PO ×2 (10:29→17:33)
[2022-05-27] MEDS: Isosorbide Mononitrate 60 MG Tablet PO (10:29)
[2022-05-27] MEDS: SACUBITRIL/VALSARTAN 24/26 MG TABLET 1 EACH PO ×2 (10:29→22:12)
[2022-05-27] MEDS: Folic Acid 1 MG Tablet PO (10:29)
[2022-05-27] MEDS: APIXABAN 2.5 MG TABLET (WCH) PO ×2 (10:29→22:12)
[2022-05-27] MEDS: Sertraline 50 MG Tablet PO (10:30)
[2022-05-27] MEDS: guaiFENesin/D-Methorphan TAB.SR.12H 1 TABLET PO ×2 (10:30→22:12)
[2022-05-27] MEDS: Furosemide 80 MG Tablet PO ×2 (10:30→17:34)
[2022-05-28] VITALS (13 sets, daily range): BP systolic 103–129; BP diastolic 50–58; PULSE 70; RESP 18–20; TEMP 36.6–38.2; O2SAT 93–96
[2022-05-28 06:06] LABS: Anion Gap 6 (5-15); BUN 40 mg/dL (7-18); BUN/Creat Ratio 16.6 RATIO (10-20); Chloride 102 mmol/L (98-107); Creatinine, Serum 2.41 mg/dL (0.70-1.30); EST Glomerular Filtration Rate 27 mL/min (>60); Est Glom Filt Rate - Afr Amer 33 mL/min (>60); Glucose 152 mg/dL (74-106); Potassium 3.2 mmol/L (3.5-5.1); Sodium Level 137 mmol/L (136-145)
[2022-05-28] MEDS: APIXABAN 2.5 MG TABLET (WCH) PO ×2 (08:14→22:45)
[2022-05-28] MEDS: Sertraline 50 MG Tablet PO (08:14)
[2022-05-28] MEDS: Folic Acid 1 MG Tablet PO (08:14)
[2022-05-28] MEDS: Isosorbide Mononitrate 60 MG Tablet PO (08:14)
[2022-05-28] MEDS: Aspirin 81 MG TAB.CHEW PO (08:14)
[2022-05-28] MEDS: SACUBITRIL/VALSARTAN 24/26 MG TABLET 1 EACH PO ×2 (08:14→22:43)
[2022-05-28] MEDS: guaiFENesin/D-Methorphan TAB.SR.12H 1 TABLET PO ×2 (08:14→22:43)
[2022-05-28] MEDS: Multivitamin (Healthy Eyes) Capsule 1 CAP PO ×2 (08:14→16:50)
[2022-05-28] MEDS: Furosemide 80 MG Tablet PO ×2 (08:15→16:50)
--- NOTE | 2022-05-28 09:16 | PN.HOSP_ITS ---
Subjective Subjective Patient seen and examined. He had no active complaints and had an uneventful night. REview of systems is otherwise negative. He is awaiting placement. He remains on room air. Objective Data Objective Data Vital Signs: Vital Signs Temp Pulse Resp BP Pulse Ox O2 Del Method O2 Flow Rate 98 F 70 20 H 115/58 L 96 Room Air 2 05/28/22 08:12 05/28/22 08:12 05/28/22 08:12 05/28/22 08:12 05/28/22 08:12 05/28/22 08:12 05/27/22 15:12 Oxygen Flow Rate (L/min) 2 Oxygen Delivery Method Room Air Weight: 198 lb 13.711 oz Body Mass Index (BMI) 29.3 Intake & Output: Intake and Output for Last 24 Hours 05/26/22 05/27/22 05/28/22 23:59 23:59 23:59 Intake Total 900 / 900 480 / 480 220 / 220 Output Total 200 / 200 600 / 600 Balance 700 / 700 480 / 180 -380 / -380 Lab / Micro Data Result Diagrams: 05/25/22 05:51 05/28/22 05:00 Labs: Laboratory Results - last 24 hr 05/28/22 05:00: Sodium 137, Potassium 3.2 L, Chloride 102, Carbon Dioxide 29.0, Anion Gap 6, BUN 40 H, Creatinine 2.41 H, Estim Creat Clear Calc 22.00, Est GFR (MDRD) Af Amer 33 L, Est GFR (MDRD) Non-Af 27 L, BUN/Creatinine Ratio 16.6, Glucose 152 H, Calcium 9.0 Micro: Microbiology 05/25/22 15:40 Nasal Secretion SARS-CoV-2 Antigen (Rapid) - Final SARS-CoV-2 (COVID 19) 05/21/22 17:38 Mucosa - Nasopharyngeal Respiratory Panel (PCR) - Final Physical Exam Const alert, oriented x3, no apparent distress, average body habitus, no limitations and healthy appearing General Appearance: cooperative, comfortable, well kempt and well developed Orientation / Consciousness: awake HEENT normocephalic, head/scalp atraumatic, hearing grossly normal bilaterally, moist oral mucous membranes and oropharynx normal Eyes PERRL, EOMs intact bilaterally and conjunctivae normal Neck no lymphadenopathy, supple, no JVD, thyroid normal and no carotid bruits General: trachea midline Resp normal respiratory effort, no retractions, no use of accessory muscles and clear to auscultation bilaterally Resp Narrative: on room air Auscultation: wheezes throughout; Negative for rales or rhonchi Cardio regular rate, regular rhythm, S1 normal heart sound, S2 normal heart sound, no murmurs, no rub and no gallops Cardio Narrative: Patient has a paced rhythm GI normal to inspection, nondistended, normoactive bowel sounds, soft to palpation, non-tender and non-distended Extremity normal to inspection, full ROM and no clubbing, cyanosis or edema Extremity Narrative: intact dressing over left willson Skin no rashes or lesions noted General Skin Exam: no breakdown Neuro CN's II-XII intact bilaterally, moves all extremities, no focal motor deficits and no sensory deficits noted Sensorium / Orientation: awake and alert Speech: speech normal Psych affect normal Assessment & Plan Assessment/Plan (1) Weakness: PLAN: Plan #Debility due to mechanical falls with failure to thrive * PT/OT on board. * fall precautions * #Elevated troponin * had stress test which is negative for any evidence of ischemia. 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 * will monitor * #COVID infection * asymptomatic. Tested positive for covid on 05/25/2022 as part of pre admission screen for SNF * supportive care only. WIll monitor * #Hypokalemia: K is 3.2 today. Will replace and trend. #CAD: on aspirin, imdur and metoprolol as well as statin #CKD IV: trend Cr. Cr has stabilised. WIll monitor. 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 ISS. Accuchecks ACHS * #Afib * on eliquis * #HFrEF: not in exacerbation. On entresto and furosemide #DVT prophylaxis: not indicated as he is already on eliquis Disposition: awaiting placement Charges/Coding Visit Charges Inpatient E&M: 52537 Subs Hosp L2
--- NOTE | 2022-05-28 09:40 | CASEMGMT ---
SW contacted patient's to discuss SNF. Patient's is aware patient cannot go to [facility] since he is COVID positive. SW went over the 3 options in the area that are taking COVID patients; [facility] in [place], [facility] in [place], and [facility] in [place]. Patient's was not fond of any of the choices, but is leaning towards [facility]. Patient's wanted to call her children and will get back to within the hour. SW gave her SW's phone number. Karina Salinas PILOT MANAGER SWATHI
--- NOTE | 2022-05-28 09:58 | CASEMGMT ---
Discharge Railroad Signal And Switch Operator This sports book writer sent referral to [facility] via [facility]. Will follow up. Delaney AGUILAR Design Engineering Specialist
--- NOTE | 2022-05-28 09:59 | CASEMGMT ---
EMMA received a call from patient's Wendie and they decided on [facility]. Wendie asked if patient would go today and EMMA told her only if insurance approves him today. Wendie also asked if she would be able to visit patient at [facility]. EMMA told her SW will have to ask and get back to her on that. EMMA asked Adali D/c senior planning manager to please send referral to [facility] and also inquire if patient's who is COVID positive will be able to visit. Karina Salinas JR. JAVA DEVELOPER SWATHI
--- NOTE | 2022-05-28 14:38 | CASEMGMT ---
Discharge Geospatial Engineer This appeals writer called Darlyn at [facility]. No positive visitors can visit. EMMA Collins let know. Darlyn is waiting on director at [facility] to see if they can accept patient due to limited rooms. EMMA Collins notified Delaney AGUILAR Lawn Maintenance Worker
--- NOTE | 2022-05-28 15:36 | CASEMGMT ---
Discharge Quote Clerk Clau from [facility] reached out and due to there bed situation they are unable to take patient. EMMA Collins notified. Delaney AGUILAR Fourdrinier Machine Tender
--- NOTE | 2022-05-28 15:38 | CASEMGMT ---
[facility] is unable to accept patient. SW called patient's Wendie and let her know this information. Wendie reluctantly agreed to allow SW to send a referral to [facility]. SW will send referral to [facility]. Karina ECHEVARRIA
--- NOTE | 2022-05-28 15:51 | CASEMGMT ---
SW received a call from patient's . She asked SW if there are any facilities in [facility] that are accepting COVID patients. SW told her SW can check on this tomorrow and get back to her. Plan: d/c to SNF accepting COVID patients. Karina ECHEVARRIA
[2022-05-28] MEDS: Acetaminophen 325 MG Tablet 650 MG PO (22:43)
[2022-05-29] VITALS (13 sets, daily range): BP systolic 89–130; BP diastolic 45–59; PULSE 70–86; RESP 17–22; TEMP 36.7–37.4; O2SAT 96–99
--- NOTE | 2022-05-29 04:30 | NURSING ---
Patient on room air with sats in high 80s to low 90s placed on 2L of Oxygen
[2022-05-29] MEDS: Menthol/Lanolin/Calamine/Znox 113 GM Tube 1 APPLIC TOPICAL ×3 (06:33→23:55)
[2022-05-29 07:18] LABS: Anion Gap 9 (5-15); BUN 43 mg/dL (7-18); BUN/Creat Ratio 15.6 RATIO (10-20); Calcium,Total 9.4 mg/dL (8.5-10.1); Chloride 102 mmol/L (98-107); Creatinine, Serum 2.75 mg/dL (0.70-1.30); EST Glomerular Filtration Rate 23 mL/min (>60); Est Glom Filt Rate - Afr Amer 28 mL/min (>60); Estimated Creatinine Clearance 19.28 ml/min; Glucose 128 mg/dL (74-106); Potassium 3.1 mmol/L (3.5-5.1); Sodium Level 139 mmol/L (136-145)
--- NOTE | 2022-05-29 08:06 | CASEMGMT ---
Discharge Tool Specialist [facility] is accepting covid positive patients at this moment. This telegraphic typewriter repairer sent referral to [facility] via [facility] Baltazar DC Roll Tension Tester
[2022-05-29] MEDS: guaiFENesin/D-Methorphan TAB.SR.12H 1 TABLET PO ×2 (09:17→23:49)
[2022-05-29] MEDS: SACUBITRIL/VALSARTAN 24/26 MG TABLET 1 EACH PO (09:17)
[2022-05-29] MEDS: Isosorbide Mononitrate 60 MG Tablet PO (09:17)
[2022-05-29] MEDS: Sertraline 50 MG Tablet PO (09:18)
[2022-05-29] MEDS: Potassium Chloride Oral Tablet 20 MEQ 40 MEQ PO (09:18)
[2022-05-29] MEDS: Aspirin 81 MG TAB.CHEW PO (09:18)
[2022-05-29] MEDS: Multivitamin (Healthy Eyes) Capsule 1 CAP PO ×2 (09:18→16:00)
[2022-05-29] MEDS: Acetaminophen 325 MG Tablet 650 MG PO ×2 (09:18→23:49)
[2022-05-29] MEDS: Furosemide 80 MG Tablet PO (09:18)
[2022-05-29] MEDS: APIXABAN 2.5 MG TABLET (WCH) PO ×2 (09:18→23:49)
[2022-05-29] MEDS: Folic Acid 1 MG Tablet PO (09:18)
--- NOTE | 2022-05-29 09:30 | CASEMGMT ---
EMMA called patient's Wendie and let her know that [facility] is taking COVID patients. Wendie said she will just go with [facility] since it is closer. Adali d/c vice president planning then told EMMA that [facility] is accepting some COVID patients. EMMA called Wendie back and let her know this and she would prefer [facility] over [facility]. EMMA notified Adali d/c vice president planning to make referral. Plan: [facility] pending insurance approval. Karina Salinas INTERVENTIONAL CARDIOLOGIST SWATHI
--- NOTE | 2022-05-29 10:02 | CASEMGMT ---
Discharge Tanning Wheel Filler This handbook writer cancelled referral at the [facility]. [facility] accepted patient. Pre-cert will be started today. Delaney AGUILAR Photocopy Operator
--- NOTE | 2022-05-29 10:20 | CASEMGMT ---
Discharge Plastic Panel Installer This scientific writer sent a referral to [facility] via [facility] Delaney AGUILAR Dairy Manufacturing Technologist
--- NOTE | 2022-05-29 10:37 | PN.HOSP_ITS ---
Subjective Subjective Patient seen and examined. He had no complaints today. He was noted to have a fever overnight. He was also placed on oxygen. REview of systems is otherwise negative. Objective Data Objective Data Vital Signs: Vital Signs Temp Pulse Resp BP Pulse Ox O2 Del Method O2 Flow Rate 99.2 F H 86 18 111/50 L 96 Nasal Cannula 2 05/29/22 09:12 05/29/22 09:12 05/29/22 09:12 05/29/22 09:12 05/29/22 09:12 05/29/22 09:12 05/29/22 09:12 Oxygen Flow Rate (L/min) 2 Oxygen Delivery Method Nasal Cannula Weight: 198 lb 13.711 oz Body Mass Index (BMI) 29.3 Intake & Output: Intake and Output for Last 24 Hours 05/27/22 05/28/22 05/29/22 23:59 23:59 23:59 Intake Total 480 / 480 720 / 720 Output Total 600 / 600 Balance 480 / 180 120 / 120 Lab / Micro Data Result Diagrams: 05/25/22 05:51 05/29/22 06:40 Labs: Laboratory Results - last 24 hr 05/29/22 06:40: Sodium 139, Potassium 3.1 L, Chloride 102, Carbon Dioxide 28.0, Anion Gap 9, BUN 43 H, Creatinine 2.75 H, Estim Creat Clear Calc 19.28, Est GFR (MDRD) Af Amer 28 L, Est GFR (MDRD) Non-Af 23 L, BUN/Creatinine Ratio 15.6, G lucose 128 H, Calcium 9.4 Micro: Microbiology 05/25/22 15:40 Nasal Secretion SARS-CoV-2 Antigen (Rapid) - Final SARS-CoV-2 (COVID 19) 05/21/22 17:38 Mucosa - Nasopharyngeal Respiratory Panel (PCR) - Final Physical Exam Const alert, oriented x3, no apparent distress, average body habitus, no limitations and healthy appearing Constitutional Narrative: flat affect General Appearance: cooperative, comfortable, well kempt and well developed Orientation / Consciousness: awake, oriented to person, oriented to place and oriented to time HEENT normocephalic, head/scalp atraumatic, hearing grossly normal bilaterally, moist oral mucous membranes and oropharynx normal Head and Scalp: normocephalic Mouth: oral and palatal mucosa normal Eyes PERRL, EOMs intact bilaterally and conjunctivae normal Neck no lymphadenopathy, supple, no JVD, thyroid normal and no carotid bruits General: trachea midline Resp normal respiratory effort Resp Narrative: on 2L of oxygen. diminished breath sounds bibasally, no wheezes or crackles. Auscultation: wheezes throughout; Negative for rales or rhonchi Cardio regular rate, regular rhythm, S1 normal heart sound, S2 normal heart sound, no murmurs, no rub and no gallops Cardio Narrative: Patient has a paced rhythm GI normal to inspection, nondistended, normoactive bowel sounds, soft to palpation, non-tender and non-distended Extremity normal to inspection, full ROM and no clubbing, cyanosis or edema Extremity Narrative: intact dressing over left willson Skin no rashes or lesions noted General Skin Exam: no breakdown Neuro CN's II-XII intact bilaterally, moves all extremities, no focal motor deficits and no sensory deficits noted Sensorium / Orientation: awake, alert, oriented to person, oriented to place and oriented to time Speech: speech normal Psych affect normal Psych Narrative: flat affect Assessment & Plan Assessment/Plan (1) Weakness: PLAN: Plan #Debility due to mechanical falls with failure to thrive * PT/OT on board. * fall precautions * #Elevated troponin * had stress test which is negative for any evidence of ischemia. 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 * will monitor * #COVID infection * Tested positive for covid on 05/25/2022 as part of pre admission screen for SNF * was initially asymptomatic. now requiring 2L of oxygen * will start on prednisone * will get CXR today * * #Hypokalemia: K is 3.1 today. Will replace and trend. #CAD: on aspirin, imdur and metoprolol as well as statin #CKD IV: trend Cr. Cr has stabilised. WIll monitor. 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 ISS. Accuchecks ACHS * #Afib * on eliquis * #HFrEF: not in exacerbation. On entresto and furosemide #DVT prophylaxis: not indicated as he is already on eliquis Disposition: awaiting placement Charges/Coding Visit Charges Inpatient E&M: 23648 Subs Hosp L2
--- NOTE | 2022-05-29 10:40 | CASEMGMT ---
Discharge Market Intelligence Consultant Referral with [facility] canceled. [facility] accepted and starting pre-cert. Delaney AGUILAR Cotton Stripper
--- NOTE | 2022-05-29 11:00 | RAD_ITS ---
STUDY: X-RAY CHEST REASON FOR EXAM: Male, 86 years old. Shortness of breath, COVID TECHNIQUE: AP and lateral views of the chest. COMPARISON: Comparison is made with prior study dated 03/01/2022. FINDINGS: EKG electrodes are seen. Mild degree of increased markings at the lung bases suggestive of bibasilar atelectasis and/or early infiltrates. There is no demonstrated pleural abnormality. There is mild cardiac enlargement. A left-sided dual-chamber pacemaker is seen. Normal mediastinum and maude. Normal visualized pulmonary arteries. There is atherosclerotic tortuosity of the aortic arch and descending thoracic aorta. There are diffuse degenerative changes of the visualized thoracic spine. There is degenerative osteoarthritis of the bilateral shoulders. There is no demonstrated abnormality of the visualized soft tissue structures of the upper abdomen. RAD/Chest PA and Lateral IMPRESSION: Mild degree of increased markings at the lung bases suggestive of bibasilar atelectasis and/or early infiltrates. Cardiomegaly. Electronically Signed: Evelio Figueredo MD at 13:14 EST ,
[2022-05-29] MEDS: dexAMETHasone 4 MG Tablet 6 MG PO (14:39)
[2022-05-29] MEDS: 0.9% Normal Saline 1,000 ML 999 ML IV (16:00)
[2022-05-29] MEDS: 0.9% Normal Saline 1,000 ML 125 ML IV (23:50)
[2022-05-30] VITALS (11 sets, daily range): BP systolic 110–129; BP diastolic 59–101; PULSE 70–96; RESP 19–22; TEMP 36.3–36.4; O2SAT 96
[2022-05-30] MEDS: 0.9% Normal Saline 1,000 ML 125 ML IV (06:02)
[2022-05-30] MEDS: Menthol/Lanolin/Calamine/Znox 113 GM Tube 1 APPLIC TOPICAL ×2 (06:03→13:32)
[2022-05-30 09:00] LABS: Absolute Lymphocyte Count 0.59 X10^3/uL (0.83-4.51); Absolute Neutrophil Count 4.6 X10^3/uL (2.0-7.7); Basophil# 0.01 X10^3/uL; Basophil% 0.2 % (0-1); Eosinophil# 0.01 X10^3/uL; Eosinophils% 0.2 % (0-5); Hematocrit 39.9 % (40-54); Hemoglobin 12.4 g/dL (13.0-16.5); Lymphocyte # 0.59 X10^3/ul (0.83-4.51); Lymphocyte % 10.5 % (19-41); Mean Corp Hgb Conc 31.1 g/dL (32-36); Mean Corpuscular Hgb 31.3 pg (27.0-32.0); Mean Corpuscular Volume 100.8 fL (80-94); Mean Platelet Vol. 10.6 fl (6.2-12.0); Monocyte# 0.35 X10^3/uL; Monocyte% 6.2 % (0-10); NRBC Flagged by Analyzer 0 % (0-5); Neutrophil # 4.63 X10^3/uL (2.7-7.7); Neutrophil % 82.4 % (47-70); POSITIVE DIFFERENTIAL YES; Platelet Count 159 K/mm3 (150-450); RBC Distribution Width CV 12.9 % (11.6-14.6); RBC Distribution Width SD 48.3 fl (35.1-43.9); Red Blood Count 3.96 M/mm3 (4.6-6.2); White Blood Count 5.6 K/mm3 (4.4-11.0)
[2022-05-30 09:03] LABS: Differential Indicated SCAN CRITERIA MET
[2022-05-30 09:26] LABS: Anion Gap 9 (5-15); BUN 43 mg/dL (7-18); BUN/Creat Ratio 18.4 RATIO (10-20); Calcium,Total 8.9 mg/dL (8.5-10.1); Chloride 107 mmol/L (98-107); Creatinine, Serum 2.34 mg/dL (0.70-1.30); EST Glomerular Filtration Rate 28 mL/min (>60); Est Glom Filt Rate - Afr Amer 34 mL/min (>60); Estimated Creatinine Clearance 22.66 ml/min; Glucose 147 mg/dL (74-106); Potassium 3.9 mmol/L (3.5-5.1); Sodium Level 141 mmol/L (136-145)
[2022-05-30 09:34] LABS: Differential Comment SCANNED
[2022-05-30] MEDS: 0.9% Saline Lock 10 ML Syringe IV (09:47)
[2022-05-30] MEDS: Isosorbide Mononitrate 60 MG Tablet PO (09:47)
[2022-05-30] MEDS: Aspirin 81 MG TAB.CHEW PO (09:47)
[2022-05-30] MEDS: Multivitamin (Healthy Eyes) Capsule 1 CAP PO ×2 (09:47→16:14)
[2022-05-30] MEDS: APIXABAN 2.5 MG TABLET (WCH) PO (09:47)
[2022-05-30] MEDS: guaiFENesin/D-Methorphan TAB.SR.12H 1 TABLET PO (09:47)
[2022-05-30] MEDS: Sertraline 50 MG Tablet PO (09:47)
[2022-05-30] MEDS: Folic Acid 1 MG Tablet PO (09:47)
[2022-05-30] MEDS: dexAMETHasone 4 MG Tablet 6 MG PO (09:47)
--- NOTE | 2022-05-30 11:29 | PN.HOSP_ITS ---
Subjective Subjective Patient seen and examined. He developed a low grade fever yesterday and required 2L of oxygen. Also with hypotensive so his Entresto and Lasix were held. He is off oxygen this morning and has no complaints. His fever is resolving. Review of systems otherwise negative. He was started on Decadron. He has otherwise remained hemodynamically stable. Objective Data Objective Data Vital Signs: Vital Signs Temp Pulse Resp BP Pulse Ox O2 Del Method O2 Flow Rate 97.6 F L 70 22 H 126/101 H 96 Room Air 2 05/30/22 09:45 05/30/22 11:00 05/30/22 09:45 05/30/22 09:45 05/30/22 09:45 05/30/22 09:45 05/30/22 08:00 Oxygen Flow Rate (L/min) 2 Oxygen Delivery Method Room Air Weight: 198 lb 13.711 oz Body Mass Index (BMI) 29.3 Intake & Output: Intake and Output for Last 24 Hours 05/28/22 05/29/22 05/30/22 23:59 23:59 23:59 Intake Total 720 / 720 1979 1239.58 / 1239.58 Output Total 600 / 600 Balance 120 / 120 1979 1239.58 / 1239.58 Lab / Micro Data Result Diagrams: 05/30/22 08:54 05/30/22 08:54 Labs: Laboratory Results - last 24 hr 05/30/22 08:54: WBC 5.6, RBC 3.96 L, Hgb 12.4 L, Hct 39.9 L, MCV 100.8 H, MCH 31.3, MCHC 31.1 L, RDW Std Deviation 48.3 H, RDW Coeff of Roger 12.9, Plt Count 159, MPV 10.6, Immature Gran % (Auto) 0.500, Neut % (Auto) 82.4 H, Lymph % (Auto) 10.5 L, [place] % (Auto) 6.2, Eos % (Auto) 0.2, Baso % (Auto) 0.2, Absolute Neuts (auto) 4.6, Absolute Lymphs (auto) 0.59 L, Nucleated RBC % 0, Differential Comment SCANNED 05/30/22 08:54: Sodium 141, Potassium 3.9, Chloride 107, Carbon Dioxide 25.0, Anion Gap 9, BUN 43 H, Creatinine 2.34 H, Estim Creat Clear Calc 22.66, Est GFR (MDRD) Af Amer 34 L, Est GFR (MDRD) Non-Af 28 L, BUN/Creatinine Ratio 18.4, Glucose 147 H, Calcium 8.9 Micro: Microbiology 05/25/22 15:40 Nasal Secretion SARS-CoV-2 Antigen (Rapid) - Final SARS-CoV-2 (COVID 19) 05/21/22 17:38 Mucosa - Nasopharyngeal Respiratory Panel (PCR) - Final Radiography Diagnostic Testing: Radiology Impression Chest X-Ray 05/29/22 11:00 IMPRESSION: Mild degree of increased markings at the lung bases suggestive of bibasilar atelectasis and/or early infiltrates. Cardiomegaly. Electronically Signed: Evelio Figueredo MD at 13:14 EST , Physical Exam Const alert, oriented x3, no apparent distress, average body habitus, no limitations and healthy appearing General Appearance: cooperative, comfortable, well kempt and well developed Orientation / Consciousness: awake, oriented to person, oriented to place and oriented to time HEENT normocephalic, head/scalp atraumatic, hearing grossly normal bilaterally, moist oral mucous membranes and oropharynx normal Head and Scalp: normocephalic Mouth: oral and palatal mucosa normal Eyes PERRL, EOMs intact bilaterally and conjunctivae normal Neck no lymphadenopathy, supple, no JVD, thyroid normal and no carotid bruits Resp Resp Narrative: on room air. diminished breath sounds bibasally, few crackles, no wheezing. Auscultation: wheezes throughout; Negative for rales or rhonchi Cardio regular rate, regular rhythm, S1 normal heart sound, S2 normal heart sound, no murmurs, no rub and no gallops Cardio Narrative: Patient has a paced rhythm GI normal to inspection, nondistended, normoactive bowel sounds, soft to palpation, non-tender and non-distended Extremity normal to inspection, full ROM and no clubbing, cyanosis or edema Extremity Narrative: intact dressing over left willson Skin no rashes or lesions noted General Skin Exam: no breakdown Neuro oriented x3, CN's II-XII intact bilaterally, moves all extremities, no focal motor deficits and no sensory deficits noted Sensorium / Orientation: awake, alert, oriented to person, oriented to place and oriented to time Speech: speech normal Psych affect normal Psych Narrative: flat affect Assessment & Plan Assessment/Plan (1) Weakness: PLAN: Plan #Debility due to mechanical falls with failure to thrive * PT/OT on board. * fall precautions * #Elevated troponin * had stress test which is negative for any evidence of ischemia. 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 * will monitor * #COVID infection * Tested positive for covid on 05/25/2022 as part of pre admission screen for SNF * on room air * started on decadron yesterday * CXR showed mild degree of increased markings at lung bases suggestive of bibasilar atelectasis and/or infiltrates. * #Hypotension * has resolved.entresto and lasix on hold. DC IVF as well. * #Hypokalemia:resolved. K is 3.9 #CAD: on aspirin, imdur and metoprolol as well as statin #CKD IV: trend Cr. Cr has stabilised. WIll monitor. 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 ISS. Accuchecks ACHS * #Afib * on eliquis * #HFrEF: not in exacerbation. On entresto and furosemide #DVT prophylaxis: not indicated as he is already on eliquis Disposition: awaiting placement Charges/Coding Visit Charges Inpatient E&M: 95879 Subs Hosp L2
--- NOTE | 2022-05-30 13:26 | CASEMGMT ---
Addendum entered by Karina Salinas 05/30/22 14:43: Patient was approved after peer to peer was done. SW notified Kirti at [facility]. Patient can be discharged to [facility] today. Physician is aware. Plan: d/c to [facility] under skilled level of care on a PASRR. Karina Salinas LOOM STARTER PRESS AND BLOW MACHINE TENDER Original Note: Patient was denied by insurance. Insurance is requesting a peer to peer. EMMA spoke with Dr Pope and she is willing to do a peer to peer. SW called insurance and arranged peer to peer. Await peer to peer results. SW spoke with patient's , Wendie letting her know patient's insurance is denying patient for [facility]. EMMA let Wendie know that [facility] physician will talk with the doctor from insurance to hopefully reverse the decision. SW will let her know when SW hears something. Karina Salinas LOOM STARTER PRESS AND BLOW MACHINE TENDER
--- NOTE | 2022-05-30 14:59 | DS.PCM_ITS ---
Providers Date of Admission: 05/21/22 Date of Discharge: 05/30/22 Primary Care Physician: Dr. Perry Olivas MD Reason For Visit: DEBILITY / ELEVATED TROPONIN Diagnosis Discharge Diagnosis (1) Weakness: Status: Acute Code(s): R53.1 - Weakness Plan #Debility due to mechanical falls with failure to thrive * PT/OT on board. * fall precautions * #Elevated troponin * had stress test which is negative for any evidence of ischemia. 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 * will monitor * #COVID infection * Tested positive for covid on 05/25/2022 as part of pre admission screen for SNF * on room air * started on decadron yesterday * CXR showed mild degree of increased markings at lung bases suggestive of bibasilar atelectasis and/or infiltrates. * #Hypotension * has resolved.entresto and lasix on hold. DC IVF as well. * #Hypokalemia:resolved. K is 3.9 #CAD: on aspirin, imdur and metoprolol as well as statin #CKD IV: trend Cr. Cr has stabilised. WIll monitor. 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 ISS. Accuchecks ACHS * #Afib * on eliquis * #HFrEF: not in exacerbation. On entresto and furosemide #DVT prophylaxis: not indicated as he is already on eliquis Disposition: awaiting placement Medications at Discharge Home Medications aspirin 81 mg chewable tablet 81 mg PO DAILY 06/30/17 coenzyme Q10 100 mg capsule (Co Q-10) 100 mg PO DAILY 11/13/18 sertraline 50 mg tablet 50 mg PO DAILY #60 tabs 11/13/18 Handicap Plaquard #1 ea 05/19/19 cholecalciferol (vitamin D3) 125 mcg (5,000 unit) tablet 125 mcg PO DAILY 01/05/21 clobetasol 0.05 % scalp solution 1 applic topical QAM AND QPM PRN LESION 01/05/21 rosuvastatin 10 mg tablet 10 mg PO DAILY 01/05/21 vitamins A,C,F-iwfm-xvumyy 14,320 unit-226 mg-200 unit capsule (PreserVision AREDS) 1 cap PO BID 01/05/21 nitroglycerin 0.4 mg sublingual tablet 0.4 mg sublingual Q5-15M PRN Cardiac/Chest Pain #25 tabs 02/17/21 isosorbide mononitrate 60 mg tablet,extended release 24 hr 60 mg PO DAILY #90 tabs 04/26/21 metoprolol succinate 25 mg tablet,extended release 24 hr 25 mg PO DAILY Dose was decreased #90 tabs 07/11/21 folic acid 1 mg tablet 1 mg PO QDAY #90 tabs 09/27/21 sacubitril 24 mg-valsartan 26 mg tablet 1 tab PO BID #180 tabs 11/15/21 furosemide 40 mg tablet (Lasix) 40 mg PO .COMPLEX this is a dose increase 03/20/22 apixaban 2.5 mg tablet (Eliquis) 2.5 mg PO BID BLOOD THINNER 05/21/22 potassium chloride 20 mEq tablet,extended release 20 meq PO DAILY #30 tabs 05/25/22 dexamethasone 6 mg tablet 6 mg PO DAILY #9 tabs 05/30/22 Hospital Course Operations None Procedures None Summary of Care Provided Minutes Spent on Discharge: 45 Hospital Course: Patient is an 86-year-old male with past medical history as outlined was admitted to the ED after he presented with a complaint of 2 mechanical falls.? These falls occurred at home he felt his legs were too weak and could not move properly.? He also complained of some chest pain.? On admission he was found to have elevated troponin.? BNP was also elevated at 1183.? CT of the chest was negative for any evidence of PE.? He was hydrated and admitted for debility and failure to thrive with falls as well as elevated troponin.? PT OT were consulted.? Patient had a stress test which was negative for any evidence of acute ischemia.? He worked with PT OT remained stable in the hospital.? Hospital course was complicated by diagnosis of COVID at time he was being discharged to fdc facility. Patient was started on p.o. Decadron after he briefly required 2 L of oxygen and developed a mild fever as well as hypotension. These subsequently resolved. He was discharged to [facility] facility on 05/30/2022.? He was discharged on p.o. Decadron 6 mg daily to complete a 10-day course. He is to follow-up with his primary care doctor and with cardiology to decide whether to discontinue Eliquis or not.? Patient is going to a controlled environment in the skilled nursing where he will be more closely monitored for falls. Patient seen and examined prior to discharge. He felt well and had no active complaints. Review of symptoms otherwise negative. Labs and vitals reviewed. Home medication reviewed and reconciled. Physical Exam Const alert, oriented x3, no apparent distress, average body habitus, no limitations and healthy appearing General Appearance: cooperative, comfortable, well kempt and well developed Orientation / Consciousness: awake, oriented to person, oriented to place and oriented to time HEENT normocephalic, head/scalp atraumatic, hearing grossly normal bilaterally, moist oral mucous membranes and oropharynx normal Eyes PERRL, EOMs intact bilaterally and conjunctivae normal Neck no lymphadenopathy, supple, no JVD, thyroid normal and no carotid bruits General: trachea midline Resp normal respiratory effort, no retractions, no use of accessory muscles and clear to auscultation bilaterally Resp Narrative: on room air. diminished breath sounds bibasally, few crackles, no wheezing. Auscultation: wheezes throughout; Negative for rales or rhonchi Cardio regular rate, regular rhythm, S1 normal heart sound, S2 normal heart sound, no murmurs, no rub and no gallops Cardio Narrative: Patient has a paced rhythm GI normal to inspection, nondistended, normoactive bowel sounds, soft to palpation, non-tender and non-distended Extremity normal to inspection, full ROM and no clubbing, cyanosis or edema Extremity Narrative: intact dressing over left willson Skin no rashes or lesions noted General Skin Exam: no breakdown Neuro oriented x3, CN's II-XII intact bilaterally, moves all extremities, no focal motor deficits and no sensory deficits noted Neuro Narrative: has some confusion Sensorium / Orientation: awake, alert, oriented to person, oriented to place and oriented to time Speech: speech normal Psych affect normal Psych Narrative: flat affect Weight / BMI Weight Weight: 198 lb 13.711 oz Body Mass Index (BMI) 29.3 ABG / Lab / Microbiology Data Result Diagrams: 05/30/22 08:54 05/30/22 08:54 Laboratory: Laboratory Results - last 24 hr 05/30/22 08:54: WBC 5.6, RBC 3.96 L, Hgb 12.4 L, Hct 39.9 L, MCV 100.8 H, MCH 31.3, MCHC 31.1 L, RDW Std Deviation 48.3 H, RDW Coeff of Roger 12.9, Plt Count 159, MPV 10.6, Immature Gran % (Auto) 0.500, Neut % (Auto) 82.4 H, Lymph % (Auto) 10.5 L, [place] % (Auto) 6.2, Eos % (Auto) 0.2, Baso % (Auto) 0.2, Absolute Neuts (auto) 4.6, Absolute Lymphs (auto) 0.59 L, Nucleated RBC % 0, Differential Comment SCANNED 05/30/22 08:54: Sodium 141, Potassium 3.9, Chloride 107, Carbon Dioxide 25.0, Anion Gap 9, BUN 43 H, Creatinine 2.34 H, Estim Creat Clear Calc 22.66, Est GFR (MDRD) Af Amer 34 L, Est GFR (MDRD) Non-Af 28 L, BUN/Creatinine Ratio 18.4, Glucose 147 H, Calcium 8.9 Microbiology: Microbiology 05/25/22 15:40 Nasal Secretion SARS-CoV-2 Antigen (Rapid) - Final SARS-CoV-2 (COVID 19) 05/21/22 17:38 Mucosa - Nasopharyngeal Respiratory Panel (PCR) - Final D/C Instructions Discharge Diet: Low fat / Low cholesterol Weight Bearing Status: Weight bearing as tolerated Call your doctor if you observe: Fever of 101 or Higher, Shortness of breath, Dizziness, Fainting spells, Swelling in the ankles, Chest pain and Increased palpitations (irregular heartbeat) Meaningful Use Info Meaningful Use Diagnoses (Choose all that apply): None applicable Discharge Plan Admission Admit Date/Time: 05/21/22 17:14 Primary Reason for Your Visit: debility and weakness Attending Provider: Zandra Pope Primary Care Provider: Perry Olivas Consulting Providers: Demarco Garcia ; Michael Pugh Instructions Patient Instructions: ED Weakness (Uncertain Cause) Discharge Orders/Prescriptions Prescriptions: New potassium chloride 20 mEq tablet extended release 20 meq PO DAILY Qty: 30 1RF dexamethasone 6 mg tablet 6 mg PO DAILY Qty: 9 0RF Continued coenzyme Q10 [Co Q-10] 100 mg capsule 100 mg PO DAILY sertraline 50 mg tablet 50 mg PO DAILY Qty: 60 3RF (DME) Handicap Plaquard Qty: 1 0RF Dose Instruction: As directed Rx Instructions: Disability will last 4 years Expires 05/19/2023 rosuvastatin 10 mg tablet 10 mg PO DAILY clobetasol 0.05 % solution 1 applic topical QAM AND QPM PRN (Reason: LESION) cholecalciferol (vitamin D3) 125 mcg (5,000 unit) tablet 125 mcg PO DAILY PreserVision AREDS 14,[id number] [id number]-du-[id number] capsule 1 cap PO BID nitroglycerin 0.4 mg tablet, sublingual 0.4 mg SUBLINGUAL Q5-15M PRN (Reason: Cardiac/Chest Pain) Qty: 25 3RF furosemide [Lasix] 40 mg tablet 40 mg PO .COMPLEX Rx Instructions: 40 mg PO 80 mg (2 tablets) in the am and 40 mg (1 tablet) 4 hours later; aspirin 81 MG tablet,chewable 81 mg PO DAILY Eliquis 2.5 mg tablet 2.5 mg PO BID isosorbide mononitrate 60 mg tablet extended release 24 hr 60 mg PO DAILY Qty: 90 4RF metoprolol succinate 25 mg tablet extended release 24 hr 25 mg PO DAILY Qty: 90 3RF folic acid 1 mg tablet 1 mg PO QDAY Qty: 90 3RF sacubitril-valsartan 24-26 mg tablet 1 tab PO BID Qty: 180 3RF Referrals / Follow Up: Perry Olivas MD [Primary Care Provider] - Within 1 Week Disposition Disposition (needs filled in before D/C Order can be placed): [facility] Facility Charges/Coding Visit Charges Inpatient E&M: 38880 Disch Hosp
--- NOTE | 2022-05-30 15:03 | TREXTCAR_ITS ---
Diet Diet Order/Speech Therapy: 05/22/22 15:52 Diet: Cardiac - Heart Healthy Food consistency:: Regular Liquid Consistency:: Regular/Thin Is pt able to select menu?: Yes Routine Orders/Code Status Enema Type: Fleetz Enema Frequency: Daily PRN Suppository Type: Dulcolax 10mg Suppository Frequency: Daily PRN O2 Frequency: PRN Keep PO Greater than or Equal to (%): 90 Wound(s) BL Shins: Wound Type: Skin Tear bilat arms: Wound Type: Skin Tear Therapies Weight Bearing: Weight bearing as tolerated Physical Therapy: Eval and Treat Occupational Therapy: Eval and Treat Problem/Diagnosis (1) Weakness: Status: Acute Code(s): R53.1 - Weakness Plan #Debility due to mechanical falls with failure to thrive * PT/OT on board. * fall precautions * #Elevated troponin * had stress test which is negative for any evidence of ischemia. 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 * will monitor * #COVID infection * Tested positive for covid on 05/25/2022 as part of pre admission screen for SNF * on room air * started on decadron yesterday * CXR showed mild degree of increased markings at lung bases suggestive of bibasilar atelectasis and/or infiltrates. * #Hypotension * has resolved.entresto and lasix on hold. DC IVF as well. * #Hypokalemia:resolved. K is 3.9 #CAD: on aspirin, imdur and metoprolol as well as statin #CKD IV: trend Cr. Cr has stabilised. WIll monitor. 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 ISS. Accuchecks ACHS * #Afib * on eliquis * #HFrEF: not in exacerbation. On entresto and furosemide #DVT prophylaxis: not indicated as he is already on eliquis Disposition: awaiting placement Allergies/Procedures Done in Hospital Allergies clarithromycin [From Biaxin] Allergy (Verified 05/21/22 12:53) PT UNSURE OF REACTION quinapril Allergy (Verified 05/21/22 12:53) Angioedema Sashrqm-TJI-OrG Reductase Inhibitor [Xivfeze-Wgb-Teg Reductase Inhibitor] Allergy (Verified 05/21/22 12:53) Hives and myalgias valsartan [From Diovan] Allergy (Verified 05/21/22 12:53) PT UNSURE OF REACTION ezetimibe [From Zetia] Adverse Reaction (Verified 05/21/22 12:53) diarrhea simvastatin [From Vytorin] Adverse Reaction (Verified 05/21/22 12:53) PT UNSURE OF REACTION Procedures: Nuclear Stress Test Type of Care/Length of Stay Estimated LOS: Convalescent Care Less Than 30 days Type of Care Needed: Skilled Rehab Potential: Fair Prognosis: Fair Additional Orders/Day of Discharge Day of Discharge: 05/25/22 Discharge Plan Admission Admit Date/Time: 05/21/22 17:14 Primary Reason for Your Visit: debility and weakness Attending Provider: Zandra Pope Primary Care Provider: Perry Olivas Consulting Providers: Demarco Garcia ; Michael Pugh Instructions Patient Instructions: ED Weakness (Uncertain Cause) Discharge Orders/Prescriptions Prescriptions: New potassium chloride 20 mEq tablet extended release 20 meq PO DAILY Qty: 30 1RF dexamethasone 6 mg tablet 6 mg PO DAILY Qty: 9 0RF Continued coenzyme Q10 [Co Q-10] 100 mg capsule 100 mg PO DAILY sertraline 50 mg tablet 50 mg PO DAILY Qty: 60 3RF (DME) Handicap Plaquard Qty: 1 0RF Dose Instruction: As directed Rx Instructions: Disability will last 4 years Expires 05/19/2023 rosuvastatin 10 mg tablet 10 mg PO DAILY clobetasol 0.05 % solution 1 applic topical QAM AND QPM PRN (Reason: LESION) cholecalciferol (vitamin D3) 125 mcg (5,000 unit) tablet 125 mcg PO DAILY PreserVision AREDS 14,320-226-200 owby-ab-nhar capsule 1 cap PO BID nitroglycerin 0.4 mg tablet, sublingual 0.4 mg SUBLINGUAL Q5-15M PRN (Reason: Cardiac/Chest Pain) Qty: 25 3RF furosemide [Lasix] 40 mg tablet 40 mg PO .COMPLEX Rx Instructions: 40 mg PO 80 mg (2 tablets) in the am and 40 mg (1 tablet) 4 hours later; aspirin 81 MG tablet,chewable 81 mg PO DAILY Eliquis 2.5 mg tablet 2.5 mg PO BID isosorbide mononitrate 60 mg tablet extended release 24 hr 60 mg PO DAILY Qty: 90 4RF metoprolol succinate 25 mg tablet extended release 24 hr 25 mg PO DAILY Qty: 90 3RF folic acid 1 mg tablet 1 mg PO QDAY Qty: 90 3RF sacubitril-valsartan 24-26 mg tablet 1 tab PO BID Qty: 180 3RF Referrals / Follow Up: Perry Olivas MD [Primary Care Provider] - Within 1 Week Disposition Disposition (needs filled in before D/C Order can be placed): [facility] Facility
--- NOTE | 2022-05-30 15:21 | CASEMGMT ---
Discharge After School Program Director This senior underwriter sent d/c orders [facility]. This senior underwriter called [facility] with wheel chair transport with a pick of time of 6:00pm. Nursing staff made aware. Delaney AGUILAR Shearer Screen Measurer And Trimmer
--- NOTE | 2022-05-30 16:29 | NURSING ---
Report called to nurse Vale for pt to be d/c to [facility]
== END 2022-05-30 19:30 | disposition skilled nursing facility (03) ==
LOC: ED 15:49 → PCU 05-22 07:16
PROVIDERS: Internal Medicine; Admitting Provider Internal Medicine; Emergency Provider Emergency Medicine; PCP Internal Medicine; Visit Provider Student in an Organized Health Care Education/Training Program
DX: R62.7 Adult failure to thrive (principal); I50.42 Chronic combined systolic (congestive) and diastolic (congestive) heart failure; I13.0 Hypertensive heart and chronic kidney disease with heart failure and stage 1 through stage 4 chronic kidney disease, or unspecified chronic kidney disease; I27.21 Secondary pulmonary arterial hypertension; E11.22 Type 2 diabetes mellitus with diabetic chronic kidney disease; N18.4 Chronic kidney disease, stage 4 (severe); I48.91 Unspecified atrial fibrillation; U07.1 COVID-19; I25.5 Ischemic cardiomyopathy; R53.81 Other malaise; E86.0 Dehydration; Z79.82 Long term (current) use of aspirin; I25.10 Atherosclerotic heart disease of native coronary artery without angina pectoris; S20.212A Contusion of left front wall of thorax, initial encounter; E78.5 Hyperlipidemia, unspecified; T50.1X5A Adverse effect of loop [high-ceiling] diuretics, initial encounter; Z87.891 Personal history of nicotine dependence; E87.6 Hypokalemia; Z79.01 Long term (current) use of anticoagulants; W10.9XXA Fall (on) (from) unspecified stairs and steps, initial encounter; Z79.899 Other long term (current) drug therapy; Y93.01 Activity, walking, marching and hiking; Y92.018 Other place in single-family (private) house as the place of occurrence of the external cause; Z95.810 Presence of automatic (implantable) cardiac defibrillator
CPT/HCPCS: 36415; 71046; 71250; 78452; 80048; 80053; 83605; 83735; 83880; 84100; 84484; 85025; 87426; 87633; 93005; 93017; 96361; 96365; 96366; 96375; 97110; 97112; 97116; 97162; 97166; 97530; 97535; 99218; 99285; A9500; J7030; J7040; A4216; G0378; J1940; J2785

== ENCOUNTER → 2022-07-05 | Outpatient (CLI) | payer MEDICARE, SELFPAY ==
[2022-07-05 14:49] LABS: Absolute Lymphocyte Count 1.17 X10^3/uL (0.83-4.51); Absolute Neutrophil Count 4.3 X10^3/uL (2.0-7.7); Basophil# 0.02 X10^3/uL; Basophil% 0.3 % (0-1); Eosinophil# 0.08 X10^3/uL; Eosinophils% 1.3 % (0-5); Hematocrit 40.2 % (40-54); Hemoglobin 12.9 g/dL (13.0-16.5); Lymphocyte # 1.17 X10^3/ul (0.83-4.51); Lymphocyte % 19.6 % (19-41); Mean Corp Hgb Conc 32.1 g/dL (32-36); Mean Corpuscular Hgb 31.6 pg (27.0-32.0); Mean Corpuscular Volume 98.5 fL (80-94); Mean Platelet Vol. 10.3 fl (6.2-12.0); Monocyte# 0.36 X10^3/uL; NRBC Flagged by Analyzer 0 % (0-5); Neutrophil # 4.28 X10^3/uL (2.7-7.7); Platelet Count 158 K/mm3 (150-450); RBC Distribution Width CV 13.8 % (11.6-14.6); RBC Distribution Width SD 49.3 fl (35.1-43.9); Red Blood Count 4.08 M/mm3 (4.6-6.2)
[2022-07-05 15:06] LABS: Anion Gap 9 (5-15); BUN 39 mg/dL (7-18); BUN/Creat Ratio 19.9 RATIO (10-20); Calcium,Total 9.3 mg/dL (8.5-10.1); Chloride 102 mmol/L (98-107); Creatinine, Serum 1.96 mg/dL (0.70-1.30); EST Glomerular Filtration Rate 35 mL/min (>60); Est Glom Filt Rate - Afr Amer 42 mL/min (>60); Glucose 182 mg/dL (74-106); Potassium 3.4 mmol/L (3.5-5.1); Sodium Level 140 mmol/L (136-145)
[2022-07-05 15:08] LABS: BNP,B-Type NATRIURETIC PEPTIDE 422.1 pg/mL (0-100)
== END | disposition home or self-care (01) ==
LOC: LAB 13:43
PROVIDERS: PCP Internal Medicine; Referring Provider Nurse Practitioner Gerontology; Visit Provider Nurse Practitioner Gerontology
DX: R06.00 Dyspnea, unspecified (principal)
CPT/HCPCS: 36415; 80048; 83880; 85025

== ENCOUNTER → 2022-07-12 | Outpatient (CLI) | payer MEDICARE, SELFPAY ==
[2022-07-12 13:36] LABS: Anion Gap 7 (5-15); BUN 35 mg/dL (7-18); Calcium,Total 9.5 mg/dL (8.5-10.1); Chloride 106 mmol/L (98-107); Creatinine, Serum 2.06 mg/dL (0.70-1.30); EST Glomerular Filtration Rate 33 mL/min (>60); Est Glom Filt Rate - Afr Amer 40 mL/min (>60); Glucose 125 mg/dL (74-106); Potassium 3.4 mmol/L (3.5-5.1); Sodium Level 143 mmol/L (136-145)
== END | disposition home or self-care (01) ==
PROVIDERS: PCP Internal Medicine; Referring Provider Nurse Practitioner Gerontology; Visit Provider Nurse Practitioner Gerontology
DX: E87.6 Hypokalemia (principal)
CPT/HCPCS: 36415; 80048

== ENCOUNTER → 2022-07-19 | Outpatient (CLI) | payer MEDICARE, SELFPAY ==
[2022-07-19 15:25] LABS: Anion Gap 8 (5-15); BUN 31 mg/dL (7-18); BUN/Creat Ratio 15.3 RATIO (10-20); Calcium,Total 9.7 mg/dL (8.5-10.1); Chloride 104 mmol/L (98-107); Creatinine, Serum 2.03 mg/dL (0.70-1.30); EST Glomerular Filtration Rate 33 mL/min (>60); Est Glom Filt Rate - Afr Amer 40 mL/min (>60); Glucose 108 mg/dL (74-106); Potassium 3.8 mmol/L (3.5-5.1); Sodium Level 141 mmol/L (136-145)
== END | disposition home or self-care (01) ==
LOC: LAB 13:47
PROVIDERS: PCP Internal Medicine; Visit Provider Nurse Practitioner Gerontology
DX: E87.6 Hypokalemia (principal)
CPT/HCPCS: 36415; 80048

== ENCOUNTER → 2022-09-18 | Outpatient (CLI) | payer MEDICARE, SELFPAY ==
[2022-09-18 13:02] LABS: AST(SGOT) 21 U/L (15-37); Alanine Aminotransfer ALT/SGPT 34 U/L (16-61); Albumin, Serum 3.5 g/dL (3.2-5.0); Alkaline Phosphatase 77 U/L (45-117); Bilirubin, Direct 0.28 mg/dL (0.00-0.30); Cholesterol 125 mg/dL (200); Globulin 3.9 g/dL (2.2-4.2); High Density Lipoprotein 40 mg/dL; Protein, Total 7.4 g/dL (6.4-8.2); Triglycerides 192 mg/dL; Very Low Density Lipoprotein 38 mg/dL (5-40)
== END | disposition home or self-care (01) ==
LOC: LAB 12:13
PROVIDERS: Internal Medicine Cardiovascular Disease; PCP Internal Medicine
DX: E78.00 Pure hypercholesterolemia, unspecified (principal)
CPT/HCPCS: 36415; 80061; 80076

== ENCOUNTER → 2022-10-03 | Outpatient (CLI) | payer MEDICARE, SELFPAY ==
[2022-10-03 10:53] LABS: Anion Gap 6 (5-15); BUN 34 mg/dL (7-18); BUN/Creat Ratio 14.8 RATIO (10-20); Calcium,Total 10.3 mg/dL (8.5-10.1); Chloride 103 mmol/L (98-107); Creatinine, Serum 2.29 mg/dL (0.70-1.30); EST Glomerular Filtration Rate 29 mL/min (>60); Est Glom Filt Rate - Afr Amer 35 mL/min (>60); Glucose 133 mg/dL (74-106); Potassium 3.4 mmol/L (3.5-5.1); Sodium Level 139 mmol/L (136-145)
== END | disposition home or self-care (01) ==
LOC: LAB 09:51
PROVIDERS: PCP Internal Medicine; Referring Provider Internal Medicine Cardiovascular Disease; Visit Provider Internal Medicine Cardiovascular Disease
DX: N18.4 Chronic kidney disease, stage 4 (severe) (principal)
CPT/HCPCS: 36415; 80048

== ENCOUNTER → 2022-10-04 | Outpatient (CLI) | payer MEDICARE, SELFPAY ==
[2022-10-04 16:02] LABS: Anion Gap 9 (5-15); BUN 37 mg/dL (7-18); BUN/Creat Ratio 14.9 RATIO (10-20); Calcium,Total 9.7 mg/dL (8.5-10.1); Chloride 102 mmol/L (98-107); Creatinine, Serum 2.48 mg/dL (0.70-1.30); EST Glomerular Filtration Rate 26 mL/min (>60); Est Glom Filt Rate - Afr Amer 32 mL/min (>60); Glucose 157 mg/dL (74-106); Potassium 3.2 mmol/L (3.5-5.1); Sodium Level 139 mmol/L (136-145)
== END | disposition home or self-care (01) ==
PROVIDERS: Nurse Practitioner Gerontology; PCP Internal Medicine; Referring Provider Internal Medicine Cardiovascular Disease; Visit Provider Internal Medicine Cardiovascular Disease
DX: E87.6 Hypokalemia (principal)
CPT/HCPCS: 36415; 80048

== ENCOUNTER 2022-11-28 09:44 | Outpatient (RCR) | payer MEDICARE, SELFPAY ==
[2022-11-28 10:23] VITALS: BP 131/74; PULSE 70; RESP 18; TEMP 36.4; BMI 34.1
--- NOTE | 2022-11-28 12:39 | PCM.WC.HP ---
History of Present Illness Date of Service: 11/28/22 Chief Complaint: 87-year-old white male that also lives at assisted skilled nursing with a left medial ankle wound for the last 2 weeks. And states it probably started from a blister and reopened. Patient has history of congestive heart failure stents pacemaker patient is currently on Eliquis. has been using bsaz-prx-vbfjlem antibiotic ointment to it has seen dermatology but they sent him here. He exhibits very much edema especially in the left lower leg worsened in the right. He has some kind of peripheral vascular with ulcers History of Wound: Wound is approximately 2 weeks old very superficial and small. We will trial him on Xeroform he could heal in a week. We will add compression stockings to his regime and follow him up. 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 Overweight Paroxysmal atrial flutter Secondary pulmonary arterial hypertension Syncope Transient hypotension Type 2 diabetes mellitus without complications Weakness Home Medications aspirin 81 mg chewable tablet 81 mg PO DAILY 06/30/17 [History Last Taken 05/20/22] coenzyme Q10 100 mg capsule (Co Q-10) 100 mg PO DAILY 11/13/18 [History Last Taken 05/21/22] sertraline 50 mg tablet 50 mg PO DAILY #60 tabs 11/13/18 [Rx Last Taken 05/21/22] Handicap Plaquard #1 ea 05/19/19 [Rx Last Taken Unknown] cholecalciferol (vitamin D3) 125 mcg (5,000 unit) tablet 125 mcg PO DAILY 01/05/21 [History Last Taken 05/20/22] clobetasol 0.05 % scalp solution 1 applic topical QAM AND QPM PRN LESION 01/05/21 [History Last Taken 05/20/22] rosuvastatin 10 mg tablet 10 mg PO DAILY 01/05/21 [History Last Taken 05/21/22] vitamins A,C,Q-jzzx-kfrtmm 4,296 mcg-226 mg-90 mg capsule (PreserVision AREDS) 1 cap PO BID 01/05/21 [History Last Taken 05/21/22] nitroglycerin 0.4 mg sublingual tablet 0.4 mg sublingual Q5-15M PRN Cardiac/Chest Pain #25 tabs 02/17/21 [Rx Last Taken Unknown] metoprolol succinate 25 mg tablet,extended release 24 hr 25 mg PO DAILY Dose was decreased #90 tabs 08/02/22 [Rx Last Taken Unknown] isosorbide mononitrate 60 mg tablet,extended release 24 hr 60 mg PO DAILY #90 tabs 08/27/22 [Rx Last Taken Unknown] folic acid 1 mg tablet 1 mg PO QDAY #90 tabs 10/26/22 [Rx Last Taken Unknown] sacubitril 24 mg-valsartan 26 mg tablet 1 tab PO BID Waiting on mail order: Pt is OUT of medication #20 tabs 11/02/22 [Rx Last Taken Unknown] furosemide 40 mg tablet (Lasix) 80 mg PO BID 11/28/22 [History Last Taken Unknown] Allergy/AdvReac Type Severity Reaction Status Date / Time clarithromycin [From Biaxin] Allergy PT UNSURE Verified 10/04/22 14:12 OF REACTION quinapril Allergy Angioedema Verified 10/04/22 14:12 Fjriwog-OTJ-NwH Reductase Allergy Hives and Verified 10/04/22 14:12 Inhibitor myalgias [Fdiyiab-Oid-Fuf Reductase Inhibitor] valsartan [From Diovan] Allergy PT UNSURE Verified 10/04/22 14:12 OF REACTION ezetimibe [From Zetia] AdvReac diarrhea Verified 10/04/22 14:12 simvastatin [From Vytorin] AdvReac PT UNSURE Verified 10/04/22 14:12 OF REACTION Family History Mother Diabetes Sister Cancer pancreatic Surgical History History of cardioversion (07/11/20) History of coronary artery stent placement (08/01/17) Presence of automatic implantable cardioverter-defibrillator (07/05/17) Presence of biventricular implantable cardioverter-defibrillator (ICD) (01/08/19) Social History Smoking Status: Former smoker how long ago did patient quit smoking: May 1988 alcohol intake: current alcohol intake frequency: holidays/special occasions only caffeine: No ROS Constitutional Constitutional: Reports systems reviewed and no addt'l complaints, except as documented Eyes Eyes: Reports systems reviewed and no addt'l complaints, except as documented ENT HEENT: Reports systems reviewed and no addt'l complaints, except as documented Cardiovascular Cardiovascular: Reports systems reviewed and no addt'l complaints, except as documented Respiratory/Chest Respiratory/Chest: Reports systems reviewed and no addt'l complaints, except as documented Gastrointestinal Gastrointestinal: Reports systems reviewed and no addt'l complaints, except as documented Genitourinary Genitourinary: Reports systems reviewed and no addt'l complaints, except as documented Musculoskeletal Musculoskeletal: Reports systems reviewed and no addt'l complaints, except as documented Integumentary Integumentary: Reports new lesions, skin ulcer, skin swelling and wounds Neurologic Neurologic: Reports systems reviewed and no addt'l complaints, except as documented Psychiatric Psychiatric: Reports systems reviewed and no addt'l complaints, except as documented Endocrine Endocrinology: Reports systems reviewed and no addt'l complaints, except as documented Hematologic/Lymphatic Hematologic/Lymphatic: Reports systems reviewed and no addt'l complaints, except as documented Allergic/Immunologic Allergic/Immunologic: Reports systems reviewed and no addt'l complaints, except as documented Vital Signs Vital Signs Vital Signs: 11/28/22 10:23 Temperature 97.5 F L Temperature Source Temporal Pulse Rate 70 Respiratory Rate 18 Blood Pressure 131/74 H Blood Pressure Mean 93 Blood Pressure Source Monitor Blood Pressure Position Semi-Fowlers Blood Pressure Location Left Arm Weight Weight: 205 lb Body Mass Index (BMI) 34.1 Physical Exam Const oriented x3 General Appearance: cooperative Exam Limitations: no limitations HEENT normocephalic Head and Scalp: normal to inspection Eyes PERRL General Eye: normal appearance of both eyes Neck full ROM General: normal visual inspection Resp normal respiratory effort Auscultation: clear to auscultation bilaterally Cardio regular rate and regular rhythm GI Palpation: soft and no hepatosplenomegaly external exam normal Extremity normal to inspection General Extremity: normal exam except as noted Skin Wound Narrative: Open blister left lower leg. Pinpoint openings on right lower leg with some ulcerations from peripheral vascular disease Neuro oriented x3 Psych Appearance: grossly normal Speech: normal speech Thought Content: normal thought content Judgement: judgement good Debridement Note Debridement Note Post-Debridement Measurements and Additional Note: Post-Debridement Measurements/Treatment MAK - Nurse 1 - General Ulcer Assessment Start: 11/28/22 10:15 Freq: Status: Active Protocol: JOSÉ Activity Type Activity Date Activity User E-sign Co-sign Detail Recorded Client Recorded Date Recorded By Document 11/28/22 10:23 DAVID [id number] 11/28/22 10:30 RB 11/28/22 10:23 - Today's Visit Information Type of service Initial Visit Arrival Mode Ambulatory, Walker Transfer Assistance None Patient Identification Verified (Name & Yes ) Patient Requires Transmission-Based No Precautions Height and Weight Height 5 ft 5 in Weight 205 lb Weight in Pounds 205.0 lbs Body Mass Index (BMI) 34.1 BMI Classification Obese BSA - Ivy 2.00 Vital Signs Temperature (97.8 F-99.1 F) 97.5 F L Temperature Source Temporal Pulse Rate (60-100) 70 Pulse Location Monitor Respiratory Rate (12-18) 18 Respiratory rate source Observation Blood Pressure (90/60-120/80) 131/74 H Blood Pressure Mean 93 Source Monitor Position Semi-Fowlers Blood Pressure Location Left Arm History Since Last Visit- (Skip if this is Patient's initial visit) Have you changed medications since your No last visit? Any new allergies or adverse reactions No Had a fall/change in ADL's that may No increase risk of falls Signs or symptoms of abuse and/or No neglect since last visit Have you been in the hospital since your No last visit? Has dressing in place as prescribed Yes Has compression in place as prescribed No Has offloadiing in place as prescribed No Experienced any changes in pain level or No management Pain Scale: 0-10 Numeric Is Patient Pain Free? Yes Lower Extremity Assessment/ Foot Assessment/ Toe Nail Assessment Right -Posterior Tibial Palpable No -Dorsalis Pedis Palpable No -Extremity Color Hemosiderin -Hair Growth on Legs No -Hair Growth on Toes No -Temperature of Extremity Cool -Capillary Refill Less than 3 Seconds -Dependent Rubor No -Blanched when Elevated No -Lipodermatosclerosis No -Other Deformity No -Prior Foot Ulcer No -Charcot Joint No -Prior Amputation No -Thick No -Discolored No -Deformed No -Improper Length & Hygeine Yes Left -Posterior Tibial Palpable No -Dorsalis Pedis Palpable No -Extremity Color Hemosiderin -Hair Growth on Legs No -Hair Growth on Toes No -Temperature of Extremity Cool -Capillary Refill Less than 3 Seconds -Dependent Rubor No -Blanched when Elevated No -Lipodermatosclerosis No -Thick No -Discolored No -Deformed No -Improper Length & Hygeine Yes Neuropathy Assessment Feet - Top Side and Bottom <Entered> (a) Communication Assessment Preferred language [place]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 [employer] House Required No Able to Read Yes Able to Write Yes Communication Tools None Right Hearing Abillity Hard of Hearing Left Hearing Abillity Hard of Hearing Visual Assistive Devices Glasses Teaching Assessment Preferences Verbal,Written Barriers to Learning None Readiness To Learn Good Willingness to Engage in Self Management Med Activies Anxiety Level Calm Cooperation Cooperative Perception Coherent Interest in Health Problem Asks Questions Education Importance Acknowledges Need Does Patient Smoke tobacco or other No substances Smoking Status Former smoker Functional Assessment Recent Decline in Ability to Perform Denies Any Declines, Ambulation Culture/Sabianism/Steam Fitter Supervisor Maintenance Cultural/Sabianism Needs that may affect No Treatment Plan Would you allow our hospital whitesmith to No meet you for the purpose of spiritual/ emotional support? Steam Fitter Supervisor Maintenance to contact place of presybeterian No Teaching: Wound Center *Welcome to the Wound Center -Person Taught Patient -Teaching Method Discussion, Demonstration -Response to teaching Verbalize understanding (a) 1 - + throughout WC - Nurse 1 - General Ulcer Measurement Start: 11/28/22 10:15 Freq: Status: Active Protocol: Activity Type Activity Date Activity User E-sign Co-sign Detail Recorded Client Recorded Date Recorded By Document 11/28/22 10:23 RB [id number] 11/28/22 10:30 RB 11/28/22 10:23 Wound Center Nurse 1 1. LLE medial -Combined with other wound No -Current Size (cm) - Length 4.2 -Current Size (cm) - Width 1.6 -Current Size (cm) - Depth 0.1 -Total Square Cm 6.72 -Photo Taken Yes -Tunneling No -Undermining/Tunneling No -Circular Undermining No -Exudate Amt Medium -Exudate Type Serosanguineous -Wound Margin Distinct, Outline Attached -Granulation Amt Medium (34-66%) -Granulation Quality [place] -Slough/Fibrin Yes -Necrosis Amt Small (1-33%) -Necrotic Tissue Type Adherent Slough -Structure Exposed N/A -Texture (Jen-wound Skin Appearance) Assessed -Moisture (Jen-wound Skin Appearance) Assessed -Color (Jen-wound Skin Appearance) Assessed -Temperature (Jen-wound Skin No Abnormality Appearance) (Pt Warm) -Tenderness on Palpation (Jen-wound No Skin Appearance) -Ulcer Cleansing Wound Cleanser -Foul Odor after Cleansing No -Anesthetic Used 5% Lidocaine Gel Lower Limb Edema Present Yes Right Calf (cm) 34.5 Right Ankle (cm) 23.8 Left Calf (cm) 36.6 Left Ankle (cm) 25.5 WC - Nurse 2 - General Ulcer CM Notes Start: 11/28/22 10:15 Freq: Status: Active Protocol: Activity Type Activity Date Activity User E-sign Co-sign Detail Recorded Client Recorded Date Recorded By Document 11/28/22 10:56 MW [id number] 11/28/22 11:01 MW 11/28/22 10:56 Wound Center Nurse 2 1. LLE medial -Time 10:57 -Correct Patient Yes -Correct Side, Site, Position Yes -Correct Procedure Yes -Procedure Performed Yes -Type of Procedure Debridement -Clinical Debridement Subcutaneous -Tissue Removed Subcutaneous -Post Debridement (cm) - Length 4.5 -Post Debridement (cm) - Width 2.5 -Post Debridement (cm) - Depth 0.1 -Total Square (Post) (cm) 11.25 -Area of Debridement (cm) - Length 4.5 -Area of Debridement (cm) - Width 2.5 -Total Square (Area) (cm) 11.25 -Tunneling No -Undermining/Tunneling No -Circular Undermining No -Wound/Ulcer Outcome Not Healed -Ulcer Cleansing Rinsed/ Irrigated with Saline -Foul Odor after Cleansing No -Bioengineered Tissue No -Bleeding Controlled with Pressure -Treatment Response Procedure Tolerated Well -Offloading No -Debridement - Subq, 1st 20sq cm Yes Pain Scale: 0-10 Numeric Is Patient Pain Free? Yes MAK - Nurse 3 - General Ulcer D/C NN Start: 11/28/22 10:15 Freq: Status: Active Protocol: Activity Type Activity Date Activity User E-sign Co-sign Detail Recorded Client Recorded Date Recorded By Document 11/28/22 11:15 [id number] 11/28/22 11:16 RB 11/28/22 11:15 Wound Care Center Nurse 3 1. LLE medial -Ulcer Cleansing Rinsed/ Irrigated with Saline -Primary Dressing Applied Mepilex Border -Other Dressing xeroform -Mepilex Border 1 Left -Other butch Right -Tubular Bandage Single Layer -Size of Tubigrip Used Size D -Size D ($) 1 Treatment Response Procedure Tolerated Well Pain Scale: 0-10 Numeric Is Patient Pain Free? Yes WC - Visit Discharge Discharge Condition Stable Ambulatory Status Ambulatory, Walker Transportation Private Auto Medication Reconcilliation completed & No provided to patient/care provider Clinical Summary of Care Provided Yes Assessment/Plan Assessment/Plan (1) Nonhealing nonsurgical wound limited to breakdown of skin: CODE(S): T14.8XXA - Other injury of unspecified body region, initial encounter PLAN: Wash bilateral lower legs with antibacterial soap and apply Xeroform superabsorbent to left leg with an absorbent dressing and Butch wraps over top Follow-up in 1 week (2) Bilateral lower extremity edema: CODE(S): R60.0 - Localized edema (3) Atherosclerotic peripheral vascular disease with ulceration: CODE(S): I70.209 - Unspecified atherosclerosis of [place] arteries of extremities, unspecified extremity; L98.499 - Non-pressure chronic ulcer of skin of other sites with unspecified severity
== END 2022-11-28 23:59 | disposition home or self-care (01) ==
LOC: WC 09:44
PROVIDERS: PCP Internal Medicine; Referring Provider Internal Medicine; Visit Provider Nurse Practitioner
DX: E11.622 Type 2 diabetes mellitus with other skin ulcer (principal); L98.491 Non-pressure chronic ulcer of skin of other sites limited to breakdown of skin; I13.0 Hypertensive heart and chronic kidney disease with heart failure and stage 1 through stage 4 chronic kidney disease, or unspecified chronic kidney disease; I50.9 Heart failure, unspecified; E11.22 Type 2 diabetes mellitus with diabetic chronic kidney disease; E11.40 Type 2 diabetes mellitus with diabetic neuropathy, unspecified; I70.209 Unspecified atherosclerosis of native arteries of extremities, unspecified extremity; E78.5 Hyperlipidemia, unspecified; N18.9 Chronic kidney disease, unspecified; S91.002A Unspecified open wound, left ankle, initial encounter; I25.10 Atherosclerotic heart disease of native coronary artery without angina pectoris; Z79.82 Long term (current) use of aspirin; Z87.891 Personal history of nicotine dependence; I25.5 Ischemic cardiomyopathy; T14.8XXA Other injury of unspecified body region, initial encounter; R60.0 Localized edema
CPT/HCPCS: 11042; 99203; G0463

== ENCOUNTER 2023-02-16 00:17 | Emergency (ER) | payer MEDICARE, SELFPAY ==
[2023-02-16 00:18] VITALS: BP 129/74; PULSE 70; RESP 19; TEMP 36.2; O2SAT 100
[2023-02-16] MEDS: Lidocaine 5% Patch 1 PATCH TOPICAL (01:09)
[2023-02-16] MEDS: Acetaminophen 500 MG Tablet PO (01:09)
--- NOTE | 2023-02-16 01:38 | ED.VIS.BACK ---
HPI History of Present Illness Chief Complaint: Back Narrative Narrative: 87-year-old male with right lower back pain. He states it started yesterday morning and it hurts only when he moves. It is worse when he starts to twist. When he lays back he is not comfortable. Denies dysuria or hematuria. Denies loss of bladder bowel control, saddle anesthesia or paresthesia. Denies any direct trauma. He is ambulatory. He took Tylenol few hours ago and there is some improvement of the pain. Patient states he has no history of kidney stones. 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 Overweight Paroxysmal atrial flutter Secondary pulmonary arterial hypertension Syncope Transient hypotension Type 2 diabetes mellitus without complications Weakness Home Medications aspirin 81 mg chewable tablet 81 mg PO DAILY 06/30/17 [History Last Taken 05/20/22] coenzyme Q10 100 mg capsule (Co Q-10) 100 mg PO DAILY 11/13/18 [History Last Taken 05/21/22] sertraline 50 mg tablet 50 mg PO DAILY #60 tabs 11/13/18 [Rx Last Taken 05/21/22] Handicap Plaquard #1 ea 05/19/19 [Rx Last Taken Unknown] cholecalciferol (vitamin D3) 125 mcg (5,000 unit) tablet 125 mcg PO DAILY 01/05/21 [History Last Taken 05/20/22] clobetasol 0.05 % scalp solution 1 applic topical QAM AND QPM PRN LESION 01/05/21 [History Last Taken 05/20/22] rosuvastatin 10 mg tablet 10 mg PO DAILY 01/05/21 [History Last Taken 05/21/22] vitamins A,C,V-wmiv-btfkfd 4,296 mcg-226 mg-90 mg capsule (PreserVision AREDS) 1 cap PO BID 01/05/21 [History Last Taken 11/21/22] metoprolol succinate 25 mg tablet,extended release 24 hr 25 mg PO DAILY Dose was decreased #90 tabs 08/02/22 [Rx Last Taken Unknown] isosorbide mononitrate 60 mg tablet,extended release 24 hr 60 mg PO DAILY #90 tabs 08/27/22 [Rx Last Taken Unknown] folic acid 1 mg tablet 1 mg PO QDAY #90 tabs 10/26/22 [Rx Last Taken Unknown] furosemide 40 mg tablet (Lasix) 80 mg PO BID 11/28/22 [History Last Taken Unknown] nitroglycerin 0.4 mg sublingual tablet 0.4 mg sublingual Q5-15M PRN Cardiac/Chest Pain #25 tabs 01/15/23 [Rx Last Taken Unknown] sacubitril 24 mg-valsartan 26 mg tablet 1 tab PO BID #180 tabs 02/11/23 [Rx Last Taken Unknown] lidocaine 5 % topical patch 1 patch topical DAILY #15 ea 02/16/23 [Rx Last Taken Unknown] Allergy/AdvReac Type Severity Reaction Status Date / Time clarithromycin [From Biaxin] Allergy PT UNSURE Verified 02/16/23 00:18 OF REACTION quinapril Allergy Angioedema Verified 02/16/23 00:18 Hpgwblf-QRU-UoR Reductase Allergy Hives and Verified 02/16/23 00:18 Inhibitor myalgias [Wrmdbze-Kld-Tpl Reductase Inhibitor] valsartan [From Diovan] Allergy PT UNSURE Verified 02/16/23 00:18 OF REACTION ezetimibe [From Zetia] AdvReac diarrhea Verified 02/16/23 00:18 simvastatin [From Vytorin] AdvReac PT UNSURE Verified 02/16/23 00:18 OF REACTION Family History Mother Diabetes Sister Cancer pancreatic Surgical History History of cardioversion (07/11/20) History of coronary artery stent placement (08/01/17) Presence of automatic implantable cardioverter-defibrillator (07/05/17) Presence of biventricular implantable cardioverter-defibrillator (ICD) (01/08/19) Social History Smoking Status: Former smoker how long ago did patient quit smoking: May 1988 alcohol intake: current alcohol intake frequency: holidays/special occasions only caffeine: No ROS ROS ED Constitutional Constitutional ED: Denies chills, fever(s) or sweats Eyes Eyes: Denies blurry vision or change in vision ENT ENT ED: Denies ear pain or sore throat Cardiovascular Cardiovascular: Denies chest pain, palpitations or racing heartbeat Respiratory/Chest Respiratory/Chest: Denies cough, dyspnea or sputum Gastrointestinal Gastrointestinal: Denies abdominal pain, constipation, diarrhea, nausea or vomiting Genitourinary Genitourinary ED: Denies dysuria, hematuria or urinary frequency Musculoskeletal Musculoskeletal: Reports back pain; Denies arthralgias, myalgias or neck pain Integumentary Denies abscess, Abrasions or rash Neurologic Neurologic: Denies headache(s), paresthesias or weakness Psychiatric Psychiatric: Denies anxiety, depression, suicidal ideation or suicidal thoughts Endocrine Endocrinology: Denies polydipsia or polyuria EXAM Physical Exam Const Vital Signs: 02/16/23 00:18 Temperature 97.1 F L Temperature Source Temporal Pulse Rate 70 Respiratory Rate 19 H Blood Pressure 129/74 H Blood Pressure Mean 92 Pulse Ox 100 Positive well nourished and obese General Appearance ED: NAD Nutritional Appearance: obese HEENT Reports moist mucous membranes Resp normal respiratory effort and clear to auscultation bilaterally Cardio regular rate and regular rhythm GI normal to inspection, nondistended, normoactive bowel sounds Back/Spine Back/Spine Narrative: Right lumbar paraspinal musculature tenderness. No midline spinal deformity or step-off. No midline tenderness. No CVA tenderness noted on the right. Neuro oriented x3 and no sensory deficits noted Sensorium / Orientation: alert Psych mental status grossly normal Skin no rashes or lesions noted and no wounds MDM MDM MDM Narrative Medical decision making narrative: 87-year-old male presenting with right lower back pain. He has history of chronic pain and states he sees pain management for this. He had previous injections. He states his pain is a little bit different he believes it is muscular. It is reproduced by twisting and deep palpation. No CVA tenderness. No urinary complaints. We discussed that with his CKD anti-inflammatories would be inappropriate. Also we discussed the possibility of opioids for pain control however after further discussion did decided that this would not be what he wanted either. We decided to keep with Tylenol and will give him some Lidoderm patches. He is to follow-up with pain management. I do not believe he needs blood work or imaging at this point. Return precautions were discussed. Impression: 1. lumbar strain Discharge Plan Triage Chief Complaint: Back ED Provider: Angelo Holden Dx/Rx/DC Orders Instructions: ED Back Pain (Acute or Chronic) Prescriptions: New lidocaine 5 % adhesive patch,medicated 1 patch topical DAILY Qty: 15 0RF Rx Instructions: leave on most painful area for up to 12 hrs No Action coenzyme Q10 [Co Q-10] 100 mg capsule 100 mg PO DAILY sertraline 50 mg tablet 50 mg PO DAILY Qty: 60 3RF (DME) Handicap Plaquard Qty: 1 0RF Dose Instruction: As directed Rx Instructions: Disability will last 4 years Expires 05/19/2023 rosuvastatin 10 mg tablet 10 mg PO DAILY clobetasol 0.05 % solution 1 applic topical QAM AND QPM PRN (Reason: LESION) cholecalciferol (vitamin D3) 125 mcg (5,000 unit) tablet 125 mcg PO DAILY PreserVision AREDS 14,320-226-200 brsm-jm-kqgc capsule 1 cap PO BID nitroglycerin 0.4 mg tablet, sublingual 0.4 mg SUBLINGUAL Q5-15M PRN (Reason: Cardiac/Chest Pain) Qty: 25 3RF aspirin 81 MG tablet,chewable 81 mg PO DAILY furosemide [Lasix] 40 mg tablet 80 mg PO BID metoprolol succinate 25 mg tablet extended release 24 hr 25 mg PO DAILY Qty: 90 3RF isosorbide mononitrate 60 mg tablet extended release 24 hr 60 mg PO DAILY Qty: 90 4RF folic acid 1 mg tablet 1 mg PO QDAY Qty: 90 3RF sacubitril-valsartan 24-26 mg tablet 1 tab PO BID Qty: 180 3RF Primary Care Provider: Perry Olivas Referrals: Perry Olivas MD [Primary Care Provider] - Disposition Disposition: Home, Self Care
== END 2023-02-16 01:36 | disposition home or self-care (01) ==
PROVIDERS: Emergency Provider Student in an Organized Health Care Education/Training Program; PCP Internal Medicine; Visit Provider Student in an Organized Health Care Education/Training Program
DX: S39.012A Strain of muscle, fascia and tendon of lower back, initial encounter (principal); I13.0 Hypertensive heart and chronic kidney disease with heart failure and stage 1 through stage 4 chronic kidney disease, or unspecified chronic kidney disease; I50.33 Acute on chronic diastolic (congestive) heart failure; E11.22 Type 2 diabetes mellitus with diabetic chronic kidney disease; Z87.891 Personal history of nicotine dependence; I25.10 Atherosclerotic heart disease of native coronary artery without angina pectoris; E78.5 Hyperlipidemia, unspecified; N18.9 Chronic kidney disease, unspecified; E66.9 Obesity, unspecified; X58.XXXA Exposure to other specified factors, initial encounter
CPT/HCPCS: 99281; 99283

== ENCOUNTER → 2023-03-20 | Outpatient (CLI) | payer MEDICARE, SELFPAY ==
[2023-03-20 16:59] LABS: Hematocrit 43.1 % (40-54); Hemoglobin 13.2 g/dL (13.0-16.5); Mean Corp Hgb Conc 30.6 g/dL (32-36); Mean Corpuscular Hgb 31.6 pg (27.0-32.0); Mean Corpuscular Volume 103.1 fL (80-94); Mean Platelet Vol. 10.5 fl (6.2-12.0); Platelet Count 129 K/mm3 (150-450); RBC Distribution Width CV 13.5 % (11.6-14.6); RBC Distribution Width SD 51.8 fl (35.1-43.9); Red Blood Count 4.18 M/mm3 (4.6-6.2); White Blood Count 4.1 K/mm3 (4.4-11.0)
[2023-03-20 17:25] LABS: Vitamin D,25 Hydroxy 62.1 ng/mL
[2023-03-20 17:55] LABS: AST(SGOT) 15 U/L (15-37); Alanine Aminotransfer ALT/SGPT 25 U/L (16-61); Albumin, Serum 3.6 g/dL (3.2-5.0); Alkaline Phosphatase 90 U/L (45-117); Anion Gap 6 (5-15); BUN 46 mg/dL (7-18); BUN/Creat Ratio 16.2 RATIO (10-20); Calcium,Total 9.4 mg/dL (8.5-10.1); Chloride 106 mmol/L (98-107); Cholesterol 159 mg/dL (200); Creatinine, Serum 2.84 mg/dL (0.70-1.30); EST Glomerular Filtration Rate 23 mL/min (>60); Est Glom Filt Rate - Afr Amer 27 mL/min (>60); Globulin 3.4 g/dL (2.2-4.2); Glucose 156 mg/dL (74-106); High Density Lipoprotein 46 mg/dL; Phosphorus 3.2 mg/dL (2.5-4.9); Potassium 3.8 mmol/L (3.5-5.1); Sodium Level 141 mmol/L (136-145); Triglycerides 130 mg/dL; Very Low Density Lipoprotein 26 mg/dL (5-40)
== END | disposition home or self-care (01) ==
LOC: LAB 16:31
PROVIDERS: Internal Medicine Cardiovascular Disease; PCP Internal Medicine; Referring Provider Internal Medicine Nephrology; Visit Provider Internal Medicine Nephrology
DX: N18.4 Chronic kidney disease, stage 4 (severe) (principal)
CPT/HCPCS: 36415; 80048; 80061; 80076; 82306; 83970; 84100; 85027

== ENCOUNTER 2023-03-21 11:09 | Outpatient (CLI) | payer MEDICARE, SELFPAY ==
[2023-03-21 11:57] LABS: Protein, Urine (Random) 65.6 mg/dL (<11.9); Protein:Creat Ratio 686 mg/g CRE (0-200)
== END 2023-03-21 23:59 | disposition home or self-care (01) ==
PROVIDERS: PCP Internal Medicine; Referring Provider Internal Medicine Nephrology; Visit Provider Internal Medicine Nephrology
DX: N18.4 Chronic kidney disease, stage 4 (severe) (principal)
CPT/HCPCS: 82570; 84156

== ENCOUNTER → 2023-04-09 | Outpatient (CLI) | payer MEDICARE, SELFPAY ==
[2023-04-09 10:17] LABS: Anion Gap 7 (5-15); BUN 39 mg/dL (7-18); BUN/Creat Ratio 14.1 RATIO (10-20); Calcium,Total 9.7 mg/dL (8.5-10.1); Chloride 105 mmol/L (98-107); Creatinine, Serum 2.76 mg/dL (0.70-1.30); EST Glomerular Filtration Rate 23 mL/min (>60); Est Glom Filt Rate - Afr Amer 28 mL/min (>60); Glucose 128 mg/dL (74-106); Potassium 3.5 mmol/L (3.5-5.1); Sodium Level 144 mmol/L (136-145)
== END | disposition home or self-care (01) ==
LOC: LAB 08:59
PROVIDERS: PCP Internal Medicine; Referring Provider Nurse Practitioner Family; Visit Provider Nurse Practitioner Family
DX: E87.6 Hypokalemia (principal)
CPT/HCPCS: 36415; 80048

== ENCOUNTER 2023-04-24 15:45 | Outpatient (RCR) | payer MEDICARE, SELFPAY ==
[2022-11-29 00:49] VITALS: BP 131/74; PULSE 70; RESP 18; TEMP 36.4; BMI 34.1
[2023-04-04 09:41] VITALS: BP 105/58; PULSE 70; RESP 18; BMI 34.1
--- NOTE | 2023-04-04 10:30 | HP.PCM_ITS ---
History of Present Illness Date of Service: 04/04/23 Chief Complaint: 87-year-old male that also lives at assisted skilled nursing presents to the wound care center today for left lower extremity ulceration x2. And states it probably started from a blister and reopened. Patient has history of DM type II with insulin dependence, CKD stage III, HLD, HTN, congestive heart failure, CABG x1, pacemaker patient is currently on Eliquis. has been using vrkf-xfp-fjlchnb antibiotic ointment. They state the wound has been opened in the past but has reopened again. He exhibits edema bilaterally especially in the left lower leg. denies wearing compression stockings. He was referred by PCP Dr. Olivas to the wound center for a nonhealing wound present for roughly 4 weeks. PCP recently adjusted furosemide. He denies N/B/F/chills. Denies further complaints. [facility] Medical History Acute on chronic combined systolic (congestive) and diastolic (congestive) heart failure Atherosclerosis of coronary artery of [place] heart without angina pectoris Central stenosis of spinal canal CHF (congestive heart failure) Chronic kidney disease (CKD) Contusion of rib on left side Debility Dehydration Elevated troponin Essential (primary) hypertension Hyperlipidemia Ischemic cardiomyopathy Left bundle branch block (09/11/18) Lumbar spondylosis 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 Overweight Paroxysmal atrial flutter Secondary pulmonary arterial hypertension Syncope Transient hypotension Type 2 diabetes mellitus without complications Weakness Home Medications aspirin 81 mg chewable tablet 81 mg PO DAILY 06/30/17 [History Last Taken 05/20/22] coenzyme Q10 100 mg capsule (Co Q-10) 100 mg PO DAILY 11/13/18 [History Last Taken 05/21/22] sertraline 50 mg tablet 50 mg PO DAILY #60 tabs 11/13/18 [Rx Last Taken 05/21/22] Handicap Plaquard #1 ea 05/19/19 [Rx Last Taken Unknown] cholecalciferol (vitamin D3) 125 mcg (5,000 unit) tablet 125 mcg PO DAILY 01/05/21 [History Last Taken 05/20/22] clobetasol 0.05 % scalp solution 1 applic topical QAM AND QPM PRN LESION 01/05/21 [History Last Taken 05/20/22] rosuvastatin 10 mg tablet 10 mg PO DAILY 01/05/21 [History Last Taken 05/21/22] vitamins A,C,G-vdqk-cinyij 4,296 mcg-226 mg-90 mg capsule (PreserVision AREDS) 1 cap PO BID 01/05/21 [History Last Taken 05/21/22] metoprolol succinate 25 mg tablet,extended release 24 hr 25 mg PO DAILY Dose was decreased #90 tabs 08/02/22 [Rx Last Taken Unknown] isosorbide mononitrate 60 mg tablet,extended release 24 hr 60 mg PO DAILY #90 tabs 08/27/22 [Rx Last Taken Unknown] folic acid 1 mg tablet 1 mg PO QDAY #90 tabs 10/26/22 [Rx Last Taken Unknown] furosemide 40 mg tablet (Lasix) 80 mg PO BID 11/28/22 [History Last Taken Unknown] nitroglycerin 0.4 mg sublingual tablet 0.4 mg sublingual Q5-15M PRN Cardiac/Chest Pain #25 tabs 01/15/23 [Rx Last Taken Unknown] sacubitril 24 mg-valsartan 26 mg tablet 1 tab PO BID #180 tabs 02/11/23 [Rx Last Taken Unknown] lidocaine 5 % topical patch 1 patch topical DAILY #15 ea 02/16/23 [Rx Last Taken Unknown] Allergy/AdvReac Type Severity Reaction Status Date / Time clarithromycin [From Biaxin] Allergy PT UNSURE Verified 02/16/23 00:18 OF REACTION quinapril Allergy Angioedema Verified 02/16/23 00:18 Bppkvll-LVL-CuG Reductase Allergy Hives and Verified 02/16/23 00:18 Inhibitor myalgias [Bkimqln-Hif-Acf Reductase Inhibitor] valsartan [From Diovan] Allergy PT UNSURE Verified 02/16/23 00:18 OF REACTION ezetimibe [From Zetia] AdvReac diarrhea Verified 02/16/23 00:18 simvastatin [From Vytorin] AdvReac PT UNSURE Verified 02/16/23 00:18 OF REACTION Family History Mother Diabetes Sister Cancer pancreatic Surgical History History of cardioversion (07/11/20) History of coronary artery stent placement (08/01/17) Presence of automatic implantable cardioverter-defibrillator (07/05/17) Presence of biventricular implantable cardioverter-defibrillator (ICD) (01/08/19) Social History Smoking Status: Former smoker how long ago did patient quit smoking: May 1988 alcohol intake: current alcohol intake frequency: holidays/special occasions only caffeine: No ROS Constitutional Constitutional: Denies anorexia, chills, fatigue or fever(s) Eyes Eyes: Denies change in vision, double vision or eye pain ENT HEENT: Denies dysphagia, nasal congestion or nasal discharge Cardiovascular Cardiovascular: Denies chest pain, claudication or fatigue Respiratory/Chest Respiratory/Chest: Denies cough, shortness of breath at rest or wheezing Gastrointestinal Gastrointestinal: Denies abdominal pain, constipation, diarrhea, nausea or vomiting Genitourinary Genitourinary: Denies dysuria, hematuria or urinary frequency Musculoskeletal Musculoskeletal: Denies joint pain, joint stiffness or joint swelling Integumentary Integumentary: Denies lesions, pruritus or rash Neurologic Neurologic: Denies dizziness, numbness or seizures Psychiatric Psychiatric: Denies depression Endocrine Endocrinology: Denies cold intolerance or heat intolerance Vital Signs Vital Signs Vital Signs: 04/04/23 09:41 Pulse Rate 70 Respiratory Rate 18 Blood Pressure 105/58 L Blood Pressure Mean 73 Blood Pressure Source Monitor Blood Pressure Position Sitting Blood Pressure Location Left Arm Oxygen Delivery Method Room Air Weight Weight: 92.986 kg Body Mass Index (BMI) 34.1 Physical Exam Const alert, oriented x3 and no apparent distress General Appearance: cooperative HEENT normocephalic Eyes General Eye: normal appearance of both eyes Neck General: normal visual inspection Lymph Lymphatic: no lymphadenopathy noted and no lymphedema noted Resp normal respiratory effort Cardio regular rate and regular rhythm Extremity normal capillary refill, no joint enlargement, no calf tenderness and no pedal edema Extremity Narrative: DP and PT pulses weakly palpable bilateral. Capillary fill time is less than 5 seconds to digits bilateral. There is +3 pitting edema noted bilateral lower extremities and dorsal foot. Dermatological: There is bilateral edema noted to the lower extremities and dorsal foot with rubor and shiny appearance of the anterior lower extremity bilateral. Left anterior lower extremity demonstrates superficial ulceration x2. There is rubor without increased temperature about the wound margins. No purulent drainage, no malodor, no palpable fluctuance/bogginess, no visible abscess formation, no lymphangitic streaking. Musculoskeletal: Muscle strength 5 of 5 age-appropriate. Decreased range of motion of the ankle joint in dorsiflexion with the knee extended without pain or crepitus. Decreased range of motion of the first metatarsophalangeal joint without pain or crepitus. Decreased range of motion of the lesser digits without pain or crepitus. Skin no rashes or lesions noted, skin turgor normal and no jaundice Neuro moves all extremities Debridement Note Debridement Note Wound debrided: Left lower extremity x2 Laterality: Left Wound Grade/Stage: Luke stage I Type of Debridement: Excisional debridement Anesthesia Used: 5% Lidocaine Gel Depth: Down to and including healthy tissue and in the subcutaneous layer Percentage of wound debrided: 100 Instrument Used: 5mm curette Tissue Removed: Fibrous, devitalized subcutaneous, biofilm, slough Severity: Fat Layer Exposed Amount of bleeding with debridement: Mild Bleeding Controlled with: Compression and gauze Patient tolerated procedure: Patient tolerated procedure well Post-Debridement Measurements and Additional Note: Post-Debridement Measurements/Treatment - Nurse 1 - General Ulcer Assessment Start: 04/04/23 09:40 Freq: Status: Active Protocol: JOSÉ Activity Type Activity Date Activity User E-sign Co-sign Detail Recorded Client Recorded Date Recorded By Document 04/04/23 09:41 KW Desktop 04/04/23 10:08 KW 04/04/23 09:41 - Today's Visit Information Type of service Initial Visit Arrival Mode Walker, Wheelchair Accompanied by Patient Identification Verified (Name & Yes ) Height and Weight Height 5 ft 5 in Weight 92.986 kg Weight in Pounds 205.0 lbs Body Mass Index (BMI) 34.1 BMI Classification Obese BSA - Ivy 2.00 Vital Signs Pulse Rate (60-100) 70 Pulse Location Monitor Respiratory Rate (12-18) 18 Respiratory rate source Observation Oxygen Delivery Method Room Air Blood Pressure (90/60-120/80) 105/58 L Blood Pressure Mean 73 Source Monitor Position Sitting Blood Pressure Location Left Arm History Since Last Visit- (Skip if this is Patient's initial visit) Left Footwear Regular Shoe Right Footwear Regular Shoe Pain Scale: 0-10 Numeric Is Patient Pain Free? Yes Communication Assessment Preferred language [place] Able to Read Yes Able to Write Yes Communication Tools None Right Hearing Abillity Hard of Hearing ,Use of Hearing Aid Left Hearing Abillity Hard of Hearing ,Use of Hearing Aid Visual Assistive Devices None Teaching Assessment Preferences Verbal,Written Barriers to Learning None Readiness To Learn Excellent Willingness to Engage in Self Management High Activies Readiness to Engage in Self Management High Activities Anxiety Level Calm Cooperation Cooperative Perception Coherent Interest in Health Problem Asks Questions Education Importance Acknowledges Need Does Patient Smoke tobacco or other Yes substances Smoking Status Former smoker Is Patient Diabetic Yes Functional Assessment Recent Decline in Ability to Perform Ambulation, Bathing, Toileting WC - Nurse 1 - General Ulcer Measurement Start: 04/04/23 09:40 Freq: Status: Active Protocol: Activity Type Activity Date Activity User E-sign Co-sign Detail Recorded Client Recorded Date Recorded By Document 04/04/23 09:41 KW Desktop 04/04/23 10:08 KW 04/04/23 09:41 Wound Center Nurse 1 #2 LT LOWER MEDIAL LEG CLUSTER -Current Size (cm) - Length 8.0 -Current Size (cm) - Width 6.0 -Current Size (cm) - Depth 0.2 -Total Square Cm 48.00 -Date of Last Picture (Recall this 04/04/23 field) -Photo Taken Yes -Exudate Amt Large -Exudate Type Yellow/Green -Granulation Amt Medium (34-66%) -Granulation Quality [place] -Necrosis Amt Large (67-100%) -Necrotic Tissue Type Adherent Slough -Texture (Jen-wound Skin Appearance) Assessed -Moisture (Jen-wound Skin Appearance) Assessed, Maceration -Color (Jen-wound Skin Appearance) Assessed, Erythema -Temperature (Jen-wound Skin No Abnormality Appearance) (Pt Warm) -Ulcer Cleansing Soap and Water -Foul Odor after Cleansing No -Anesthetic Used 4% Lidocaine Solution Left Calf (cm) 38.5 Left Ankle (cm) 23 Assessment/Plan Assessment/Plan (1) Atherosclerotic peripheral vascular disease with ulceration: CODE(S): I70.209 - Unspecified atherosclerosis of [place] arteries of extremities, unspecified extremity; L98.499 - Non-pressure chronic ulcer of skin of other sites with unspecified severity (2) Bilateral lower extremity edema: CODE(S): R60.0 - Localized edema (3) Delayed wound healing: CODE(S): T14.8XXD - Other injury of unspecified body region, subsequent encounter (4) Type 2 diabetes mellitus without complications: CODE(S): E11.9 - Type 2 diabetes mellitus without complications (5) Essential (primary) hypertension: CODE(S): I10 - Essential (primary) hypertension (6) Hyperlipidemia: CODE(S): E78.5 - Hyperlipidemia, unspecified QUALIFIERS: Hyperlipidemia type: pure hypercholesterolemia Qualified Code(s): E78.00 - Pure hypercholesterolemia, unspecified; E78.00 - Pure hypercholesterolemia, unspecified; E78.00 - Pure hypercholesterolemia, unspecified; E78.0 - Pure hypercholesterolemia (7) Chronic kidney disease (CKD): CODE(S): N18.9 - Chronic kidney disease, unspecified (8) Presence of biventricular implantable cardioverter-defibrillator (ICD): CODE(S): Z95.810 - Presence of automatic (implantable) cardiac defibrillator (9) History of coronary artery stent placement: CODE(S): Z95.5 - Presence of coronary angioplasty implant and graft (10) Venous insufficiency (chronic) (peripheral): CODE(S): I87.2 - Venous insufficiency (chronic) (peripheral) (11) Non-pressure chronic ulcer of left calf limited to breakdown of skin: CODE(S): L97.221 - Non-pressure chronic ulcer of left calf limited to breakdown of skin PLAN: Plan Patient seen and evaluated I have reviewed previous documentation from PCP Dr. Olivas. Laboratory studies ordered by PCP on 03/21/2023 demonstrates no signs of infection. He did finish oral antibiotic. Ulceration present to the anterior left lower extremity x2 is superficial in nature secondary to chronic venous insufficiency and significant edema. Ulceration underwent debridement as noted in the clinical panel above. Proximal ulceration measures 3.0 cm x 7 cm x 0.1 cm, distal ulceration measures 3.3 cm x 3.5 cm x 0.1 cm. No signs of infection. Viktoriya applied to wound bed with dry sterile dressing. Tubigrip stocking of 20 to 30 mmHg was applied to bilateral lower extremities. He is to change dressing daily. He is to continue to wear Tubigrip compression stocking. Vascular studies: LEAS and venous studies ordered today 04/04/2023, awaiting results. Discussed controlling edema is essential to healing and that he should elevate lower extremities at all times of rest and remain compliant in wearing Tubigrip compression stocking. Discussed once wounds are healed transitioning to prescription knee-high compression stocking. Discussed continued diabetic diet to ensure tight glycemic control. Patient states he is diet controlled does not often check blood sugars. Recent A1c 7.5% on 03/21/2023. Discussed continuing to take his furosemide to continue to aid in lower extremi ty edema. Encouraged shoe gear to be worn at all times. Discussed being diabetic not ambulating barefoot, socks include barefoot. Discussed checking feet nightly for suspicious wounds or pressure spots and if he notices anything to call his buttonhole maker hand or wound center for sooner appointment. The following work up and care recommendations were made: Dressing: Viktoriya, dry sterile dressing, Tubigrip compression Wash: Soap and water Tissue growth optimization: Viktoriya Offload: Tubigrip compression and elevation of lower extremities Vascular: Weakly palpable DP and PT pulses. Vascular studies, LEAS and Venous studies ordered 04/04/2023, awaiting results Edema: To continue to elevate lower extremity at all times of rest and continue to wear Tubigrip compression stocking. Infection: No signs of infection Pain: May take [id number] Tylenol for discomfort Host factors: DM type II, stage III CKD, HTN, HLD, chronic venous insufficiency with bilateral lower extremity edema, pacemaker on Eliquis. I answered all the patient's questions. To return to the wound healing center in 1 week or call sooner if the patient has any questions or concerns.
--- NOTE | 2023-04-12 09:56 | VDLE_ITS ---
Reason For Study: LE Wounds RIGHT LEFT CFV is compressible, spontaneous, competent CFV is compressible, spontaneous, competent, and demonstrates pulsatile venous flow. and demonstrates pulsatile venous flow. FV is compressible, spontaneous, phasic, FV is compressible, spontaneous, phasic, competent and demonstrates normal competent and demonstrates normal augmentation. augmentation. POP V is compressible, spontaneous, phasic, POP V is compressible, spontaneous, phasic, competent and demonstrates normal competent and demonstrates normal augmentation. augmentation. T/P Trunk is compressible. T/P Trunk is compressible. PTV is compressible. PTV is compressible. RT PerV is compressible. LT PerV is compressible. SFJ is competent and measures 0.42 cm. SFJ is competent and measures 0.45 cm. GSV proximal thigh measures 0.34 x 0.38 cm. GSV proximal thigh measures 0.41 x 0.45 cm. GSV at knee measures 0.27 x 0.27 cm. GSV at knee measures 0.39 x 0.44 cm. GSV is competent throughout. GSV is competent throughout. SSV proximal calf is competent and measures SSV proximal calf is competent and measures 0.15 x 0.16 cm. 0.17 x 0.19 cm. Procedure Unable to visualize distal calf vessels due Exam performed in department. to wounds. The exam was diagnostic. The study was technically difficult. VL/Venous Duplex US - Xavier Extrem Interpretation Summary Deep veins of the lower extremities are bilaterally patent and compressible seg mentally. There is no evidence of deep vein thrombosis on either side. Valvular competence appears in tact within the proximal deep venous systems bilaterally. The great saphenous veins appear bila terally patent and compressible segmentally. Sapheno-femoral junctions are bilaterally competent . Valvular competence appears to be intact segmentally within the great saphenous veins bilaterally. Small saphenous veins are patent and competent bilaterally. Deep veins in the left distal calf were n ot visualized due to the presence of wounds. Pulsatile flow is noted in portions of the deep venous system bilaterally, which may be indicative of elevated central venous pressure (i.e. congestive he art failure, pulmonary hypertension, etc.). Clinical correlation is advised. Ordering Physician: Bob Caal Referring Physician: Perry Olivas Performed By: Willis Briceno RVT
--- NOTE | 2023-04-12 09:56 | ART_ITS ---
Reason For Study: LE Wounds Procedure A bilateral lower extremity continuous wave Doppler with analog waveform analysis,segmental pressures,and ankle brachial indexes without exercise. Left Segmental Pressures Left brachial= 139mmHg. Left posterior tibial artery = 139mmHg. Left dorsalis pedis artery = 154mmHg. Left digit = 0.65 mmHg. The left posterior tibial artery waveforms are biphasic. The left dorsalis pedis waveforms are biphasic. Right Segmental Pressures Right brachial= 134mmHg. Right thigh = 158mmHg. Right calf = 134mmHg. Right posterior tibial artery = 138mmHg. Right dorsalis pedis artery = 101mmHg. Right digit = 89 mmHg. The right posterior tibial artery waveforms are triphasic. The right dorsalis pedis waveforms are biphasic. Indices The right ankle brachial index by the posterior tibial artery is 0.99. The right ankle brachial index by the dorsalis pedis is 0.73. The right digital-brachial index is 0.64. The left ankle brachial index by the posterior tibial artery is 1.00. The left ankle brachial index by the dorsalis pedis is 1.11. The left digital-brachial index is 0.65. VL/Lower Ext Art Exam w/o Exercis Interpretation Summary Triphasic and biphasic Doppler waveforms are noted at ankle level on the right. Biphasic Doppler waveforms are noted at ankle level on the left. Pulse-volume recordings appear diminished at ankle and digital level bilaterally. Resting ankle-brachial indices are normal bilate rally. Digital- brachial indices are mildly diminished bilaterally. Arterial flow appears normal at ankle level bilaterally. 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 There is evidence of mild arterial occlusi ve disease at digital level bilaterally. Ordering Physician: Bob Caal Referring Physician: Perry Olivas M.D. Performed By: Willis Briceno RVT
[2023-04-18 11:22] VITALS: BP 133/64; PULSE 69; RESP 20; TEMP 36.4; BMI 34.1
--- NOTE | 2023-04-18 13:33 | PCM.WC.PN ---
History of Present Illness Date of Service: 04/18/23 Chief Complaint: 87-year-old male that also lives at assisted custodial presents to the wound care center today for left lower extremity ulceration x2. And states it probably started from a blister and reopened. Patient has history of DM type II with insulin dependence, CKD stage III, HLD, HTN, congestive heart failure, CABG x1, pacemaker patient is currently on Eliquis. has been using [id number] antibiotic ointment. They state the wound has been opened in the past but has reopened again. He exhibits edema bilaterally especially in the left lower leg. denies wearing compression stockings. He was referred by PCP Dr. Olivas to the wound center for a nonhealing wound present for roughly 4 weeks. PCP recently adjusted furosemide. He denies N/B/F/chills. Denies further complaints. History of Wound: Wound is approximately 2 weeks old very superficial and small. We will trial him on Xeroform he could heal in a week. We will add compression stockings to his regime and follow him up. Subjective Subjective This is an 87-year-old male who presents to the wound care center for follow-up today of bilateral lower extremity edema with blisters. states he has not been wearing his compression stockings as instructed and thus is undergone formation of a new blister encompassing the entire anterior aspect of the right lower extremity. She also states he sleeps in her recliner and is unable to elevate legs properly. He denies constitutional symptoms today. Denies further complaints today. Objective Data Objective Data Vital Signs: Vital Signs Temp Pulse Resp BP O2 Del Method 97.5 F L 69 20 H 133/64 H Room Air 04/18/23 11:22 04/18/23 11:22 04/18/23 11:22 04/18/23 11:22 04/04/23 09:41 Oxygen Delivery Method Room Air Weight: 92.986 kg Body Mass Index (BMI) 34.1 Physical Exam Const alert, oriented x3 and no apparent distress General Appearance: cooperative HEENT normocephalic Eyes General Eye: normal appearance of both eyes Neck General: normal visual inspection Lymph Lymphatic: no lymphadenopathy noted and no lymphedema noted Resp normal respiratory effort Cardio regular rate and regular rhythm Extremity normal capillary refill, no joint enlargement, no calf tenderness and no pedal edema Extremity Narrative: DP and PT pulses weakly palpable bilateral. Capillary fill time is less than 5 seconds to digits bilateral. There is +3 pitting edema noted bilateral lower extremities and dorsal foot. Dermatological: There is bilateral edema noted to the lower extremities and dorsal foot with rubor and shiny appearance of the anterior lower extremity bilateral. Left anterior lower extremity demonstrates superficial ulceration x2. Right anterior lower extremity demonstrates serous filled blister encompassing the entire anterior aspect of the lower extremity. There is rubor without increased temperature about the wound margins. No purulent drainage, no malodor, no palpable fluctuance/bogginess, no visible abscess formation, no lymphangitic streaking. Musculoskeletal: Muscle strength 5 of 5 age-appropriate. Decreased range of motion of the ankle joint in dorsiflexion with the knee extended without pain or crepitus. Decreased range of motion of the first metatarsophalangeal joint without pain or crepitus. Decreased range of motion of the lesser digits without pain or crepitus. Skin no rashes or lesions noted, skin turgor normal and no jaundice Neuro moves all extremities Debridement Note Debridement Note No debridement was completed: No debridement was completed today Post-Debridement Measurements and Additional Note: Post-Debridement Measurements/Treatment - Nurse 1 - General Ulcer Assessment Start: 04/04/23 09:40 Freq: Status: Active Protocol: .LOWEXT Activity Type Activity Date Activity User E-sign Co-sign Detail Recorded Client Recorded Date Recorded By Document 04/04/23 09:41 KW Desktop 04/04/23 10:08 KW Document 04/18/23 11:22 DL Desktop 04/18/23 11:30 DL 04/04/23 04/18/23 09:41 11:22 - Today's Visit Information Type of service Initial Visit Follow-up Visit (Physician/OFFICE MESSENGER HELPER ) Arrival Mode Walker, Wheelchair Wheelchair Transfer Assistance Manual Transfer Assist (Other) x2 Accompanied by Patient Identification Verified (Name & Yes Yes ) Patient Requires Transmission-Based No Precautions Height and Weight Height 5 ft 5 in Weight 92.986 kg Weight in Pounds 205.0 lbs Body Mass Index (BMI) 34.1 34.1 BMI Classification Obese Obese BSA - Ivy 2.00 Vital Signs Temperature (97.8 F-99.1 F) 97.5 F L Temperature Source Temporal Pulse Rate (60-100) 70 69 Pulse Location Monitor Monitor Respiratory Rate (12-18) 18 20 H Respiratory rate source Observation Observation Oxygen Delivery Method Room Air Blood Pressure (90/60-120/80) 105/58 L 133/64 H Blood Pressure Mean (mm Hg) 73 87 Source Monitor Monitor Position Sitting Blood Pressure Location Left Arm History Since Last Visit- (Skip if this is Patient's initial visit) Have you changed medications since your No last visit? Any new allergies or adverse reactions No Had a fall/change in ADL's that may No increase risk of falls Signs or symptoms of abuse and/or No neglect since last visit Have you been in the hospital since your No last visit? Has dressing in place as prescribed Yes Has compression in place as prescribed Yes Has offloadiing in place as prescribed N/A Experienced any changes in pain level or Yes management Left Footwear Regular Shoe Right Footwear Regular Shoe Pain Scale: 0-10 Numeric Is Patient Pain Free? Yes Yes Communication Assessment Preferred language [place] Able to Read Yes Able to Write Yes Communication Tools None Right Hearing Abillity Hard of Hearing ,Use of Hearing Aid Left Hearing Abillity Hard of Hearing ,Use of Hearing Aid Visual Assistive Devices None Teaching Assessment Preferences Verbal,Written Barriers to Learning None Readiness To Learn Excellent Willingness to Engage in Self Management High Activies Readiness to Engage in Self Management High Activities Anxiety Level Calm Cooperation Cooperative Perception Coherent Interest in Health Problem Asks Questions Education Importance Acknowledges Need Does Patient Smoke tobacco or other Yes substances Smoking Status Former smoker Is Patient Diabetic Yes Functional Assessment Recent Decline in Ability to Perform Ambulation, Bathing, Toileting WC - Nurse 1 - General Ulcer Measurement Start: 04/04/23 09:40 Freq: Status: Active Protocol: Activity Type Activity Date Activity User E-sign Co-sign Detail Recorded Client Recorded Date Recorded By Document 04/04/23 09:41 KW Desktop 04/04/23 10:08 KW Document 04/18/23 11:22 DL Desktop 04/18/23 11:30 DL 04/04/23 04/18/23 09:41 11:22 Wound Center Nurse 1 #2 LT LOWER MEDIAL LEG CLUSTER -Current Size (cm) - Length 8.0 0.1 -Current Size (cm) - Width 6.0 0.1 -Current Size (cm) - Depth 0.2 0.1 -Total Square Cm 48.00 0.01 -Date of Last Picture (Recall this 04/04/23 field) -Photo Taken Yes -Exudate Amt Large Small -Exudate Type Yellow/Green Serosanguineous -Wound Margin Indistinct, Non -Visible -Granulation Amt Medium (34-66%) Small (1-33%) -Granulation Quality Herbster Herbster -Necrosis Amt Large (67-100%) Small (1-33%) -Necrotic Tissue Type Adherent Slough Adherent Slough -Structure Exposed N/A -Texture (Jen-wound Skin Appearance) Assessed Scarring -Moisture (Jen-wound Skin Appearance) Assessed, No Abnormality Maceration -Color (Jen-wound Skin Appearance) Assessed, Hemosiderin Erythema Staining -Temperature (Jen-wound Skin No Abnormality No Abnormality Appearance) (Pt Warm) (Pt Warm) -Tenderness on Palpation (Jen-wound No Skin Appearance) -Ulcer Cleansing Soap and Water Soap and Water -Foul Odor after Cleansing No No -Anesthetic Used 4% Lidocaine 5% Lidocaine Solution Gel Right Calf (cm) 37 Right Ankle (cm) 23.5 Left Calf (cm) 38.5 37 Left Ankle (cm) 23 22.7 WC - Nurse 2 - General Ulcer CM Notes Start: 04/04/23 09:40 Freq: Status: Active Protocol: Activity Type Activity Date Activity User E-sign Co-sign Detail Recorded Client Recorded Date Recorded By Document 04/04/23 16:32 PL [id number] 04/04/23 16:35 PL 04/04/23 16:32 Wound Center Nurse 2 1. LLE medial Upper -Time 10:32 -Correct Patient Yes -Correct Side, Site, Position Yes -Correct Procedure Yes -Procedure Performed Yes -Type of Procedure Debridement -Clinical Debridement Subcutaneous -Tissue Removed Subcutaneous -Post Debridement (cm) - Length 3.5 -Post Debridement (cm) - Width 7.0 -Post Debridement (cm) - Depth 0.2 -Total Square (Post) (cm) 24.50 -Area of Debridement (cm) - Length 3.5 -Area of Debridement (cm) - Width 7.0 -Total Square (Area) (cm) 24.50 -Tunneling No -Undermining/Tunneling No -Circular Undermining No -Wound/Ulcer Outcome Not Healed -Ulcer Cleansing Rinsed/ Irrigated with Saline -Foul Odor after Cleansing No -Bioengineered Tissue No -Bleeding Controlled with Pressure -Treatment Response Procedure Tolerated Well -Debridement - Subq, 1st 20sq cm Yes -Debridement, SubQ, ea addt'l 20sq cm 1 or part thereof #2 LT LOWER MEDIAL LEG CLUSTER -Time 10:32 -Correct Patient Yes -Correct Side, Site, Position Yes -Correct Procedure Yes -Procedure Performed Yes -Type of Procedure Debridement -Clinical Debridement Subcutaneous -Tissue Removed Subcutaneous -Post Debridement (cm) - Length 3.3 -Post Debridement (cm) - Width 3.5 -Post Debridement (cm) - Depth 0.2 -Total Square (Post) (cm) 11.55 -Area of Debridement (cm) - Length 3.3 -Area of Debridement (cm) - Width 3.5 -Total Square (Area) (cm) 11.55 -Tunneling No -Undermining/Tunneling No -Circular Undermining No -Wound/Ulcer Outcome Not Healed -Ulcer Cleansing Rinsed/ Irrigated with Saline -Foul Odor after Cleansing No -Bioengineered Tissue No -Bleeding Controlled with Pressure -Treatment Response Procedure Tolerated Well -Debridement - Subq, 1st 20sq cm No Pain Scale: 0-10 Numeric Is Patient Pain Free? Yes Assessment/Plan Assessment/Plan (1) Atherosclerotic peripheral vascular disease with ulceration: CODE(S): I70.209 - Unspecified atherosclerosis of [place] arteries of extremities, unspecified extremity; L98.499 - Non-pressure chronic ulcer of skin of other sites with unspecified severity (2) Bilateral lower extremity edema: CODE(S): R60.0 - Localized edema (3) Delayed wound healing: CODE(S): T14.8XXD - Other injury of unspecified body region, subsequent encounter (4) Type 2 diabetes mellitus without complications: CODE(S): E11.9 - Type 2 diabetes mellitus without complications (5) Essential (primary) hypertension: CODE(S): I10 - Essential (primary) hypertension (6) Hyperlipidemia: CODE(S): E78.5 - Hyperlipidemia, unspecified QUALIFIERS: Hyperlipidemia type: pure hypercholesterolemia Qualified Code(s): E78.00 - Pure hypercholesterolemia, unspecified; E78.00 - Pure hypercholesterolemia, unspecified; E78.00 - Pure hypercholesterolemia, unspecified; E78.0 - Pure hypercholesterolemia (7) Chronic kidney disease (CKD): CODE(S): N18.9 - Chronic kidney disease, unspecified (8) Presence of biventricular implantable cardioverter-defibrillator (ICD): CODE(S): Z95.810 - Presence of automatic (implantable) cardiac defibrillator (9) History of coronary artery stent placement: CODE(S): Z95.5 - Presence of coronary angioplasty implant and graft (10) Venous insufficiency (chronic) (peripheral): CODE(S): I87.2 - Venous insufficiency (chronic) (peripheral) (11) Non-pressure chronic ulcer of left calf limited to breakdown of skin: CODE(S): L97.221 - Non-pressure chronic ulcer of left calf limited to breakdown of skin (12) Non-pressure chronic ulcer of right calf limited to breakdown of skin: CODE(S): L97.211 - Non-pressure chronic ulcer of right calf limited to breakdown of skin PLAN: Plan Patient seen and evaluated I have reviewed previous documentation from PCP Dr. Olivas. Laboratory studies ordered by PCP on 03/21/2023 demonstrates no signs of infection. He did finish oral antibiotic. Ulceration present to the anterior left lower extremity x2 is superficial in nature secondary to chronic venous insufficiency and significant edema. New ulceration noted to the anterior aspect of the right lower extremity. Ulcerations did not undergo debridement as noted in the clinical panel above. Left lower extremity proximal ulceration has healed, distal ulceration has healed. No signs of infection. Right anterior lower extremity ulceration deroofed and drained of serous fluid. No signs of infection. Adaptic applied to wound bed. Due to inability to wear his compression stockings as instructed, a 3M compression wrap was placed to bilateral lower extremities today to ensure compliance with compression therapy. He will return on Saturday for dressing change with new 3M compression applied. He was instructed to not get the compression wraps wet. Vascular studies: LEAS and venous studies performed 04/12/2023. Venous studies demonstrate no evidence of DVT. He does demonstrate valvular competence within the proximal deep venous system bilaterally. Great saphenous vein, saphenofemoral junction, small saphenous vein all patent and competent bilaterally. There is pulsatile flow noted in the portions of the deep venous system bilaterally which may be indicative of elevated central venous pressure (i.e. CHF, pulmonary HTN, ect). Recommend follow-up with PCP. LEAS demonstrates triphasic and biphasic Doppler waveforms at ankle level on right and biphasic waveforms at ankle level on left. PVR diminished at ankle and digital level bilaterally. Resting KRIS normal bilaterally. Digital brachial indices mildly diminished bilateral. 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 Discussed compliance with the compression stocking and that controlling edema is essential to healing and that he should elevate lower extremities at all times of rest and remain compliant in wearing Tubigrip compression stocking. Discussed once wounds are healed transitioning to prescription knee-high compression stocking. Discussed continued diabetic diet to ensure tight glycemic control. Patient states he is diet controlled does not often check blood sugars. Recent A1c 7.5% on 03/21/2023. Discussed continuing to take his furosemide to continue to aid in lower extremity edema. Encouraged shoe gear to be worn at all times. Discussed being diabetic not ambulating barefoot, socks include barefoot. Discussed checking feet nightly for suspicious wounds or pressure spots and if he notices anything to call his pharmaceutical service representative or wound center for sooner appointment. The following work up and care recommendations were made: Dressing: Adaptic and 3M compression wrap Wash: Do not get wet Tissue growth optimization: None Offload: 3M compression and elevation of lower extremities Vascular: Weakly palpable DP and PT pulses. Vascular studies, LEAS and Venous studies performed 04/12/2023. Mild digital arterial disease noted in angiosomal occlusive disease at ankle level on right. Venous study demonstrates no DVT or valvular incompetence. He may have elevated central venous pressure secondary to CHF. Edema: To continue to elevate lower extremity at all times of rest and continue to wear Tubigrip compression stocking. Infection: No signs of infection Pain: May take [id number] Tylenol for discomfort Host factors: DM type II, stage III CKD, HTN, HLD, chronic venous insufficiency with bilateral lower extremity edema, pacemaker on Eliquis. I answered all the patient's questions. To return to the wound healing center in 1 week or call sooner if the patient has any questions or concerns.
[2023-04-23 12:59] VITALS: BP 100/57; PULSE 71; RESP 18; TEMP 36.2; BMI 34.1
[2023-04-24 15:50] VITALS: BP 120/73; PULSE 69; RESP 18; BMI 34.1
--- NOTE | 2023-04-24 16:43 | PN.PCM_ITS ---
History of Present Illness Date of Service: 04/24/23 Chief Complaint: 87-year-old male that [facility] presents to the wound care center today for left lower extremity ulceration x2. And states it probably started from a blister and reopened. Patient has history of DM type II with insulin dependence, CKD stage III, HLD, HTN, congestive heart failure, CABG x1, pacemaker patient is currently on Eliquis. has been using [id number] antibiotic ointment. They state the wound has been opened in the past but has reopened again. He exhibits edema bilaterally especially in the left lower leg. denies wearing compression stockings. He was referred by PCP Dr. Olivas to the wound center for a nonhealing wound present for roughly 4 weeks. PCP recently adjusted furosemide. He denies N/B/F/chills. Denies further complaints. History of Wound: Wound is approximately 2 weeks old very superficial and small. We will trial him on Xeroform he could heal in a week. We will add compression stockings to his regime and follow him up. Subjective Subjective Mr. Garcia is a 87-year-old male presenting to the wound care center today for follow-up and evaluation of new ulceration to the left leg. Patient states the ulceration has been present for approximately 1 week. His has not been doing home wound care dressing changes. The wound is large according to the patient's . His left leg ulceration is now healed. He denies any trauma to the right leg. He denies constitutional symptoms. No other pedal complaints at this time. Objective Data Objective Data Vital Signs: Vital Signs Temp Pulse Resp BP O2 Del Method 97.2 F L 69 18 120/73 Room Air 04/23/23 12:59 04/24/23 15:50 04/24/23 15:50 04/24/23 15:50 04/24/23 15:50 Oxygen Delivery Method Room Air Weight: 92.986 kg Body Mass Index (BMI) 34.1 Physical Exam Narrative Vascular: DP and PT pulses are palpable. CFT is brisk. Blanchable erythema without proximal streaking appreciated to the right leg. Skin temperature is warm to warm from proximal ankle to distal digits. No focal increase noted. Neurological: Light touch and epicritic sensation intact. Patient response to painful stimuli. Dermatological: Full-thickness ulceration appreciated to the right leg measuring 12.9 x 11.0 x 0.1 cm. Wound base is 100% granular in nature. No evidence of drainage, erythema with proximal streaking, probe to bone or sign of infection. Excisional debridement down to and including subcutaneous tissue with number 5 mm dermal curette to the right leg ulceration without incident. Predebridement measurement 12.5 x 10.5 x 0.1 cm. Postdebridement measurements are 12.9 x 11.0 x 0.1 cm. Musculoskeletal: Pain on palpation of the full-thickness ulceration on the right leg. No pain with calf compression. Debridement Note Debridement Note Debridement Free Text: Excisional debridement down to and including subcutaneous tissue with number 5 mm dermal curette to the right leg ulceration without incident. Predebridement measurement 12.5 x 10.5 x 0.1 cm. Postdebridement measurements are 12.9 x 11.0 x 0.1 cm. Post-Debridement Measurements and Additional Note: Post-Debridement Measurements/Treatment - Nurse 1 - General Ulcer Assessment Start: 04/04/23 09:40 Freq: Status: Active Protocol: MAK.CHAZ Activity Type Activity Date Activity User E-sign Co-sign Detail Recorded Client Recorded Date Recorded By Document 04/04/23 09:41 KW Desktop 04/04/23 10:08 KW Document 04/18/23 11:22 DL Desktop 04/18/23 11:30 DL Document 04/23/23 12:59 MW Desktop 04/23/23 13:07 MW Document 04/24/23 15:50 DL Desktop 04/24/23 15:57 DL 04/04/23 04/18/23 04/23/23 09:41 11:22 12:59 - Today's Visit Information Type of service Initial Visit Follow-up Visit Nurse-only (Physician/BEDSPREAD CUTTER HAND Visit ) Arrival Mode Walker, Wheelchair Wheelchair Wheelchair Transfer Assistance Manual None Transfer Assist (Other) x2 Accompanied by Patient Identification Verified (Name & Yes Yes Yes ) Patient Requires Transmission-Based No No Precautions Height and Weight Height 5 ft 5 in Weight 92.986 kg Weight in Pounds 205.0 lbs Body Mass Index (BMI) 34.1 34.1 34.1 BMI Classification Obese Obese Obese BSA - Ivy 2.00 Vital Signs Temperature (97.8 F-99.1 F) 97.5 F L 97.2 F L Temperature Source Temporal Temporal Pulse Rate (60-100) 70 69 71 Pulse Location Monitor Monitor Monitor Respiratory Rate (12-18) 18 20 H 18 Respiratory rate source Observation Observation Observation Oxygen Delivery Method Room Air Room Air Blood Pressure (90/60-120/80) 105/58 L 133/64 H 100/57 L Blood Pressure Mean (mm Hg) 73 87 71 Source Monitor Monitor Monitor Position Sitting Sitting Blood Pressure Location Left Arm Right Arm History Since Last Visit- (Skip if this is Patient's initial visit) Have you changed medications since your No No last visit? Any new allergies or adverse reactions No No Had a fall/change in ADL's that may No No increase risk of falls Signs or symptoms of abuse and/or No No neglect since last visit Have you been in the hospital since your No No last visit? Has dressing in place as prescribed Yes Yes Has compression in place as prescribed Yes Yes Has offloadiing in place as prescribed N/A N/A Experienced any changes in pain level or Yes No management Left Footwear Regular Shoe Regular Shoe Right Footwear Regular Shoe Regular Shoe Pain Scale: 0-10 Numeric Is Patient Pain Free? Yes Yes Yes Communication Assessment Preferred language Icelandic Able to Read Yes Able to Write Yes Communication Tools None Right Hearing Abillity Hard of Hearing ,Use of Hearing Aid Left Hearing Abillity Hard of Hearing ,Use of Hearing Aid Visual Assistive Devices None Teaching Assessment Preferences Verbal,Written Barriers to Learning None Readiness To Learn Excellent Willingness to Engage in Self Management High Activies Readiness to Engage in Self Management High Activities Anxiety Level Calm Cooperation Cooperative Perception Coherent Interest in Health Problem Asks Questions Education Importance Acknowledges Need Does Patient Smoke tobacco or other Yes substances Smoking Status Former smoker Is Patient Diabetic Yes Functional Assessment Recent Decline in Ability to Perform Ambulation, Bathing, Toileting 04/24/23 15:50 WC - Today's Visit Information Type of service Follow-up Visit (Physician/BEDSPREAD CUTTER HAND ) Arrival Mode Wheelchair Transfer Assistance Transfer Assist (Other) Accompanied by Patient Identification Verified (Name & Yes ) Patient Requires Transmission-Based Precautions Height and Weight Height Weight Weight in Pounds Body Mass Index (BMI) 34.1 BMI Classification Obese BSA - Ivy Vital Signs Temperature (97.8 F-99.1 F) Temperature Source Pulse Rate (60-100) 69 Pulse Location Monitor Respiratory Rate (12-18) 18 Respiratory rate source Observation Oxygen Delivery Method Room Air Blood Pressure (90/60-120/80) 120/73 Blood Pressure Mean (mm Hg) 88 Source Monitor Position Semi-Fowlers Blood Pressure Location Left Arm History Since Last Visit- (Skip if this is Patient's initial visit) Have you changed medications since your No last visit? Any new allergies or adverse reactions No Had a fall/change in ADL's that may No increase risk of falls Signs or symptoms of abuse and/or No neglect since last visit Have you been in the hospital since your No last visit? Has dressing in place as prescribed Yes Has compression in place as prescribed Yes Has offloadiing in place as prescribed No Experienced any changes in pain level or No management Left Footwear Regular Shoe Right Footwear Regular Shoe Pain Scale: 0-10 Numeric Is Patient Pain Free? Yes Communication Assessment Preferred language Able to Read Able to Write Communication Tools Right Hearing Abillity Left Hearing Abillity Visual Assistive Devices Teaching Assessment Preferences Barriers to Learning Readiness To Learn Willingness to Engage in Self Management Activies Readiness to Engage in Self Management Activities Anxiety Level Cooperation Perception Interest in Health Problem Education Importance Does Patient Smoke tobacco or other substances Smoking Status Is Patient Diabetic Functional Assessment Recent Decline in Ability to Perform WC - Nurse 1 - General Ulcer Measurement Start: 04/04/23 09:40 Freq: Status: Active Protocol: Activity Type Activity Date Activity User E-sign Co-sign Detail Recorded Client Recorded Date Recorded By Document 04/04/23 09:41 KW Desktop 04/04/23 10:08 KW Document 04/18/23 11:22 DL Desktop 04/18/23 11:30 DL Document 04/23/23 12:59 MW Desktop 04/23/23 13:07 MW Document 04/24/23 15:50 DL Desktop 04/24/23 15:57 DL 04/04/23 04/18/23 04/23/23 09:41 11:22 12:59 Wound Center Nurse 1 #2 LT LOWER MEDIAL LEG CLUSTER -Current Size (cm) - Length 8.0 0.1 -Current Size (cm) - Width 6.0 0.1 -Current Size (cm) - Depth 0.2 0.1 -Total Square Cm 48.00 0.01 -Date of Last Picture (Recall this 04/04/23 field) -Photo Taken Yes -Exudate Amt Large Small -Exudate Type Yellow/Green Serosanguineous -Wound Margin Indistinct, Non -Visible -Granulation Amt Medium (34-66%) Small (1-33%) -Granulation Quality [place] -Necrosis Amt Large (67-100%) Small (1-33%) -Necrotic Tissue Type Adherent Slough Adherent Slough -Structure Exposed N/A -Texture (Jen-wound Skin Appearance) Assessed Scarring Assessed, Localized Edema -Moisture (Jen-wound Skin Appearance) Assessed, No Abnormality Assessed Maceration -Color (Jen-wound Skin Appearance) Assessed, Hemosiderin Assessed, Erythema Staining Hemosiderin Staining -Temperature (Jen-wound Skin No Abnormality No Abnormality No Abnormality Appearance) (Pt Warm) (Pt Warm) (Pt Warm) -Tenderness on Palpation (Jen-wound No Yes Skin Appearance) -Ulcer Cleansing Soap and Water Soap and Water Soap and Water -Foul Odor after Cleansing No No No -Anesthetic Used 4% Lidocaine 5% Lidocaine Solution Gel 2. RLE -Current Size (cm) - Length -Current Size (cm) - Width -Current Size (cm) - Depth -Total Square Cm -Date of Last Picture (Recall this field) -Photo Taken -Exudate Amt -Exudate Type -Wound Margin -Granulation Amt -Granulation Quality -Texture (Jen-wound Skin Appearance) -Moisture (Jen-wound Skin Appearance) -Color (Jen-wound Skin Appearance) -Temperature (Jen-wound Skin Appearance) -Ulcer Cleansing -Foul Odor after Cleansing -Anesthetic Used Lower Limb Edema Present Yes Right Calf (cm) 37 40.0 Right Ankle (cm) 23.5 22.0 Left Calf (cm) 38.5 37 41.3 Left Ankle (cm) 23 22.7 20.8 04/24/23 15:50 Wound Center Nurse 1 #2 LT LOWER MEDIAL LEG CLUSTER -Current Size (cm) - Length 0 -Current Size (cm) - Width 0 -Current Size (cm) - Depth 0 -Total Square Cm 0 -Date of Last Picture (Recall this field) -Photo Taken -Exudate Amt -Exudate Type -Wound Margin -Granulation Amt -Granulation Quality -Necrosis Amt -Necrotic Tissue Type -Structure Exposed -Texture (Jen-wound Skin Appearance) -Moisture (Jen-wound Skin Appearance) -Color (Jen-wound Skin Appearance) -Temperature (Jne-wound Skin Appearance) -Tenderness on Palpation (Jen-wound Skin Appearance) -Ulcer Cleansing Soap and Water -Foul Odor after Cleansing -Anesthetic Used 2. RLE -Current Size (cm) - Length 12.8 -Current Size (cm) - Width 11 -Current Size (cm) - Depth 0.1 -Total Square Cm 140.8 -Date of Last Picture (Recall this 04/24/23 field) -Photo Taken Yes -Exudate Amt Medium -Exudate Type Serosanguineous -Wound Margin Distinct, Outline Attached -Granulation Amt Large (67-100%) -Granulation Quality Red -Texture (Jen-wound Skin Appearance) Assessed -Moisture (Jen-wound Skin Appearance) Assessed -Color (Jen-wound Skin Appearance) Assessed, Erythema -Temperature (Jen-wound Skin No Abnormality Appearance) (Pt Warm) -Ulcer Cleansing Soap and Water -Foul Odor after Cleansing No -Anesthetic Used 4% Lidocaine Solution Lower Limb Edema Present Right Calf (cm) 33.6 Right Ankle (cm) 21.6 Left Calf (cm) 34.5 Left Ankle (cm) 20.5 WC - Nurse 2 - General Ulcer CM Notes Start: 04/04/23 09:40 Freq: Status: Active Protocol: Activity Type Activity Date Activity User E-sign Co-sign Detail Recorded Client Recorded Date Recorded By Document 04/04/23 16:32 PL [id number] 04/04/23 16:35 PL Document 04/24/23 16:18 JF Laptop 04/24/23 16:20 04/04/23 04/24/23 16:32 16:18 Wound Center Nurse 2 #2 LT LOWER MEDIAL LEG CLUSTER -Time 10:32 -Correct Patient Yes No -Correct Side, Site, Position Yes No -Correct Procedure Yes No -Procedure Performed Yes No -Type of Procedure Debridement -Clinical Debridement Subcutaneous -Tissue Removed Subcutaneous -Post Debridement (cm) - Length 3.3 0 -Post Debridement (cm) - Width 3.5 0 -Post Debridement (cm) - Depth 0.2 0 -Total Square (Post) (cm) 11.55 0 -Area of Debridement (cm) - Length 3.3 0 -Area of Debridement (cm) - Width 3.5 0 -Total Square (Area) (cm) 11.55 0 -Tunneling No -Undermining/Tunneling No -Circular Undermining No -Wound/Ulcer Outcome Not Healed Healed- Epithelialized -Ulcer Cleansing Rinsed/ Irrigated with Saline -Foul Odor after Cleansing No -Bioengineered Tissue No -Bleeding Controlled with Pressure -Treatment Response Procedure Tolerated Well -Debridement - Subq, 1st 20sq cm No 1. LLE [facility] Upper -Time 10:32 -Correct Patient Yes -Correct Side, Site, Position Yes -Correct Procedure Yes -Procedure Performed Yes -Type of Procedure Debridement -Clinical Debridement Subcutaneous -Tissue Removed Subcutaneous -Post Debridement (cm) - Length 3.5 -Post Debridement (cm) - Width 7.0 -Post Debridement (cm) - Depth 0.2 -Total Square (Post) (cm) 24.50 -Area of Debridement (cm) - Length 3.5 -Area of Debridement (cm) - Width 7.0 -Total Square (Area) (cm) 24.50 -Tunneling No -Undermining/Tunneling No -Circular Undermining No -Wound/Ulcer Outcome Not Healed -Ulcer Cleansing Rinsed/ Irrigated with Saline -Foul Odor after Cleansing No -Bioengineered Tissue No -Bleeding Controlled with Pressure -Treatment Response Procedure Tolerated Well -Debridement - Subq, 1st 20sq cm Yes -Debridement, SubQ, ea addt'l 20sq cm 1 or part thereof 2. RLE -Time 16:18 -Correct Patient Yes -Correct Side, Site, Position Yes -Correct Procedure Yes -Procedure Performed Yes -Type of Procedure Debridement -Clinical Debridement Subcutaneous -Tissue Removed Subcutaneous -Post Debridement (cm) - Length 12.9 -Post Debridement (cm) - Width 11 -Post Debridement (cm) - Depth 0.1 -Total Square (Post) (cm) 141.9 -Area of Debridement (cm) - Length 12.9 -Area of Debridement (cm) - Width 11 -Total Square (Area) (cm) 141.9 -Tunneling No -Undermining/Tunneling No -Circular Undermining No -Wound/Ulcer Outcome Not Healed -Ulcer Cleansing Rinsed/ Irrigated with Saline -Foul Odor after Cleansing No -Bioengineered Tissue No -Bleeding Controlled with Pressure -Treatment Response Procedure Tolerated Well -Offloading No -Debridement - Subq, 1st 20sq cm Yes -Debridement, SubQ, ea addt'l 20sq cm 6 or part thereof Pain Scale: 0-10 Numeric Is Patient Pain Free? Yes Yes WC - Nurse 3 - General Ulcer D/C NN Start: 04/04/23 09:40 Freq: Status: Active Protocol: Activity Type Activity Date Activity User E-sign Co-sign Detail Recorded Client Recorded Date Recorded By Document 04/19/23 07:31 PL [id number] 04/19/23 07:31 PL Edit Time 04/18/23 07:31 PL 04/19/23 07:31=>04/18/23 07:31 [id number] 04/19/23 07:32 PL Document 04/23/23 12:59 MW Desktop 04/23/23 13:07 MW Document 04/24/23 16:30 KW Desktop 04/24/23 16:33 KW 04/18/23 04/23/23 04/24/23 07:31 12:59 16:30 Wound Care Center Nurse 3 #2 LT LOWER MEDIAL LEG CLUSTER -Ulcer Cleansing Soap and Water -Primary Dressing Applied NonAdherent Contact Layer, Optilok 8x12 -Optilok 8x12 1 2. RLE -Ulcer Cleansing Rinsed/ Irrigated with Saline -Primary Dressing Covered/Secured with Dry Gauze & Roll Gauze, Secured with Tape Left -Tubular Bandage Double Layer -Size of Tubigrip Used Size D -Size D ($) 2 Right -Multi-Layered Wrap Application Multi-Layer Comp - Right ($ ) BILATERAL -Lotion applied to leg before No compression wrap -Multi-Layered Wrap Application Multi-Layer Multi-Layer Comp - Bilat ($ Comp - Bilat ($ ) ) Treatment Response Procedure Tolerated Well Vital Signs Temperature (97.8 F-99.1 F) 97.2 F L Temperature Source Temporal Pulse Rate (60-100) 71 Pulse Location Monitor Respiratory Rate (12-18) 18 Respiratory rate source Observation Oxygen Delivery Method Room Air Blood Pressure (90/60-120/80) 100/57 L Blood Pressure Mean (mm Hg) 71 Source Monitor Position Sitting Blood Pressure Location Right Arm Pain Scale: 0-10 Numeric Is Patient Pain Free? Yes Yes Yes WC - Visit Discharge Discharge Condition Stable Stable Ambulatory Status Wheelchair Wheelchair Transportation Private Auto Private Auto Accompanied by Medication Reconcilliation completed & No No provided to patient/care provider Clinical Summary of Care Provided Yes Yes Notes: Dressing and 3M2L wraps applied per Matt Wong RN. Tolerated well. 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 All fines were discussed with the pat ient. All questions were answered to the patient satisfaction. Excisional debridement down to and including subcutaneous tissue with number 5 mm dermal curette to the right leg ulceration without incident. Predebridement measurement 12.5 x 10.5 x 0.1 cm. Postdebridement measurements are 12.9 x 11.0 x 0.1 cm. Ulceration was dressed with Xeroform, dry sterile dressing and 3M multilayer layer compression bandage was applied. Patient was instructed to change this every other day until follow-up in 1 week. We will begin authorization for home health care as well as social work to help with the patient's daily living activities around the house. Also to help with changing the patient's 3M compression dressings. (2) Edema of right lower leg: CODE(S): R60.0 - Localized edema (3) Pain in right leg: CODE(S): M79.604 - Pain in right leg
== END 2023-04-30 23:59 | disposition home or self-care (01) ==
LOC: WC 15:45
PROVIDERS: PCP Internal Medicine; Referring Provider Internal Medicine; Visit Provider Podiatrist Foot & Ankle Surgery
DX: I70.209 Unspecified atherosclerosis of native arteries of extremities, unspecified extremity (principal); E11.51 Type 2 diabetes mellitus with diabetic peripheral angiopathy without gangrene; L98.492 Non-pressure chronic ulcer of skin of other sites with fat layer exposed; L97.221 Non-pressure chronic ulcer of left calf limited to breakdown of skin; L97.211 Non-pressure chronic ulcer of right calf limited to breakdown of skin; I13.0 Hypertensive heart and chronic kidney disease with heart failure and stage 1 through stage 4 chronic kidney disease, or unspecified chronic kidney disease; I50.9 Heart failure, unspecified; E11.59 Type 2 diabetes mellitus with other circulatory complications; E11.22 Type 2 diabetes mellitus with diabetic chronic kidney disease; Z79.4 Long term (current) use of insulin; N18.30 Chronic kidney disease, stage 3 unspecified; E78.5 Hyperlipidemia, unspecified; Z95.810 Presence of automatic (implantable) cardiac defibrillator; I25.5 Ischemic cardiomyopathy; Z95.5 Presence of coronary angioplasty implant and graft; I87.2 Venous insufficiency (chronic) (peripheral); Z79.82 Long term (current) use of aspirin; Z87.891 Personal history of nicotine dependence; I70.90 Unspecified atherosclerosis; T14.8XXD Other injury of unspecified body region, subsequent encounter; R60.0 Localized edema
CPT/HCPCS: 11042; 11045; 29581; 93923; 93970; 99213; G0463

== ENCOUNTER 2023-05-29 14:15 | Outpatient (RCR) | payer MEDICARE, SELFPAY ==
[2023-05-01 00:06] VITALS: BP 120/73; PULSE 69; RESP 18; TEMP 36.2; BMI 34.1
[2023-05-01 13:39] VITALS: BP 102/58; PULSE 70; RESP 20; TEMP 35.9; BMI 34.1
--- NOTE | 2023-05-01 13:59 | PN.PCM_ITS ---
History of Present Illness Date of Service: 05/01/23 Chief Complaint: 87-year-old male that also lives at [facility] presents to the wound care center today for left lower extremity ulceration x2. And states it probably started from a blister and reopened. Patient has history of DM type II with insulin dependence, CKD stage III, HLD, HTN, congestive heart failure, CABG x1, pacemaker patient is currently on Eliquis. has been using [id number] antibiotic ointment. They state the wound has been opened in the past but has reopened again. He exhibits edema bilaterally especially in the left lower leg. denies wearing compression stockings. He was referred by PCP Dr. Olivas to the wound center for a nonhealing wound present for roughly 4 weeks. PCP recently adjusted furosemide. He denies N/B/F/chills. Denies further complaints. History of Wound: Wound is approximately 2 weeks old very superficial and small. We will trial him on Xeroform he could heal in a week. We will add compression stockings to his regime and follow him up. Subjective Subjective Mr. Garcia is a 87-year-old male presenting to the wound care center today for follow-up and evaluation of new ulceration to the left leg. The patient's continues to do home wound care dressing changes. Home health care services will begin dressing changes this Saturday. He denies any trauma to the right leg. He denies constitutional symptoms. No other pedal complaints at this time. Objective Data Objective Data Vital Signs: Vital Signs Temp Pulse Resp BP 96.6 F L 70 20 H 102/58 L 05/01/23 13:39 05/01/23 13:39 05/01/23 13:39 05/01/23 13:39 Weight: 92.986 kg Body Mass Index (BMI) 34.1 Physical Exam Narrative Vascular: DP and PT pulses are palpable. CFT is brisk. Blanchable erythema without proximal streaking appreciated to the right leg. Skin temperature is warm to warm from proximal ankle to distal digits. No focal increase noted. Neurological: Light touch and epicritic sensation intact. Patient response to painful stimuli. Dermatological: Full-thickness ulceration appreciated to the right leg measuring 9.5 x 10.0 x 0.1 cm. Wound base is 100% granular in nature. No evidence of drainage, erythema with proximal streaking, probe to bone or sign of infection. Excisional debridement down to and including subcutaneous tissue with number 5 mm dermal curette to the right leg ulceration without incident. Predebridement measurement 9.0 x 9.5 x 0.1 cm. Postdebridement measurements are 9.5 x 10.0 x 0.1 cm. Musculoskeletal: Pain on palpation of the full-thickness ulceration on the right leg. No pain with calf compression. Debridement Note Debridement Note Debridement Free Text: Excisional debridement down to and including subcutaneous tissue with number 5 mm dermal curette to the right leg ulceration without incident. Predebridement measurement 9.0 x 9.5 x 0.1 cm. Postdebridement measurements are 9.5 x 10.0 x 0.1 cm. Post-Debridement Measurements and Additional Note: Post-Debridement Measurements/Treatment WC - Nurse 1 - General Ulcer Assessment Start: 05/01/23 13:38 Freq: Status: Active Protocol: MAK.CHAZ Activity Type Activity Date Activity User E-sign Co-sign Detail Recorded Client Recorded Date Recorded By Document 05/01/23 13:39 DL Desktop 05/01/23 13:44 DL 05/01/23 13:39 WC - Today's Visit Information Type of service Follow-up Visit (Physician/SPORTS PHYSICIAN ) Arrival Mode Wheelchair Transfer Assistance None Patient Identification Verified (Name & Yes ) Patient Requires Transmission-Based No Precautions Height and Weight Body Mass Index (BMI) 34.1 BMI Classification Obese Vital Signs Temperature (97.8 F-99.1 F) 96.6 F L Temperature Source Temporal Pulse Rate (60-100) 70 Pulse Location Monitor Respiratory Rate (12-18) 20 H Respiratory rate source Observation Blood Pressure (90/60-120/80) 102/58 L Blood Pressure Mean (mm Hg) 72 Source Monitor History Since Last Visit- (Skip if this is Patient's initial visit) Have you changed medications since your No last visit? Any new allergies or adverse reactions No Had a fall/change in ADL's that may No increase risk of falls Signs or symptoms of abuse and/or No neglect since last visit Have you been in the hospital since your No last visit? Has dressing in place as prescribed Yes Has compression in place as prescribed Yes Has offloadiing in place as prescribed N/A Experienced any changes in pain level or No management Pain Scale: 0-10 Numeric Is Patient Pain Free? Yes WC - Nurse 1 - General Ulcer Measurement Start: 05/01/23 13:38 Freq: Status: Active Protocol: Activity Type Activity Date Activity User E-sign Co-sign Detail Recorded Client Recorded Date Recorded By Document 05/01/23 13:39 DL Desktop 05/01/23 13:44 DL 05/01/23 13:39 Wound Center Nurse 1 #2 LT LOWER MEDIAL LEG CLUSTER -Current Size (cm) - Length 0 -Current Size (cm) - Width 0 -Current Size (cm) - Depth 0 -Total Square Cm 0 -Photo Taken Yes -Exudate Amt None Present -Granulation Amt Large (67-100%) -Granulation Quality [place] -Necrosis Amt None Present (0 %) -Structure Exposed N/A -Texture (Jen-wound Skin Appearance) No Abnormality -Moisture (Jen-wound Skin Appearance) Dry/Scaly -Color (Jen-wound Skin Appearance) Hemosiderin Staining -Temperature (Jen-wound Skin No Abnormality Appearance) (Pt Warm) -Tenderness on Palpation (Jen-wound No Skin Appearance) -Ulcer Cleansing Soap and Water -Foul Odor after Cleansing No 1. LLE medial Upper -Current Size (cm) - Length 0 -Current Size (cm) - Width 0 -Current Size (cm) - Depth 0 -Total Square Cm 0 -Photo Taken Yes -Exudate Amt None Present -Wound Margin Indistinct, Non -Visible -Granulation Amt Large (67-100%) -Granulation Quality [place] -Necrosis Amt None Present (0 %) -Structure Exposed N/A -Texture (Jen-wound Skin Appearance) No Abnormality, Scarring -Moisture (Jen-wound Skin Appearance) Dry/Scaly -Color (Jen-wound Skin Appearance) Hemosiderin Staining -Temperature (Jen-wound Skin No Abnormality Appearance) (Pt Warm) -Ulcer Cleansing Soap and Water -Foul Odor after Cleansing No 2. RLE -Current Size (cm) - Length 10 -Current Size (cm) - Width 10.5 -Current Size (cm) - Depth 0.1 -Total Square Cm 105.0 -Photo Taken Yes -Exudate Amt Medium -Exudate Type Serosanguineous -Wound Margin Distinct, Outline Attached -Granulation Amt Large (67-100%) -Granulation Quality [place] -Necrosis Amt None Present (0 %) -Structure Exposed N/A -Texture (Jen-wound Skin Appearance) Scarring -Moisture (Jen-wound Skin Appearance) Dry/Scaly -Color (Jen-wound Skin Appearance) Hemosiderin Staining -Temperature (Jen-wound Skin No Abnormality Appearance) (Pt Warm) -Tenderness on Palpation (Jen-wound No Skin Appearance) -Ulcer Cleansing Soap and Water -Foul Odor after Cleansing No -Anesthetic Used 4% Lidocaine Solution WC - Nurse 2 - General Ulcer CM Notes Start: 05/01/23 13:38 Freq: Status: Active Protocol: Activity Type Activity Date Activity User E-sign Co-sign Detail Recorded Client Recorded Date Recorded By Document 05/01/23 13:48 Laptop 05/01/23 13:56 05/01/23 13:48 Wound Center Nurse 2 #2 LT LOWER MEDIAL LEG CLUSTER -Correct Patient No -Correct Side, Site, Position No -Correct Procedure No -Procedure Performed No 2. RLE -Time 13:54 -Correct Patient Yes -Correct Side, Site, Position Yes -Correct Procedure Yes -Procedure Performed Yes -Type of Procedure Debridement -Clinical Debridement Subcutaneous -Tissue Removed Subcutaneous -Post Debridement (cm) - Length 9.5 -Post Debridement (cm) - Width 10 -Post Debridement (cm) - Depth 0.1 -Total Square (Post) (cm) 95.0 -Area of Debridement (cm) - Length 9.5 -Area of Debridement (cm) - Width 10 -Total Square (Area) (cm) 95.0 -Tunneling No -Undermining/Tunneling No -Circular Undermining No -Wound/Ulcer Outcome Not Healed -Ulcer Cleansing Rinsed/ Irrigated with Saline -Foul Odor after Cleansing No -Bioengineered Tissue No -Bleeding Controlled with Pressure -Treatment Response Procedure Tolerated Well -Offloading No -Debridement - Subq, 1st 20sq cm Yes -Debridement, SubQ, ea addt'l 20sq cm 4 or part thereof Pain Scale: 0-10 Numeric Is Patient Pain Free? Yes Assessment/Plan Assessment/Plan (1) Non-pressure chronic ulcer of right calf limited to breakdown of skin: CODE(S): L97.211 - Non-pressure chronic ulcer of right calf limited to breakdown of skin PLAN: Patient was examined evaluated. All findings were discussed with the patient. All questions were answered to the patient satisfaction. Excisional debridement down to and including subcutaneous tissue with number 5 mm dermal curette to the right leg ulceration without incident. Predebridement measurement 9.0 x 9.5 x 0.1 cm. Postdebridement measurements are 9.5 x 10.0 x 0.1 cm. The right leg was dressed with Xeroform and 3M double wrap. Home health care orders will be to change the right lower extremity 2-3 times per week based on drainage. The left lower extremity was dressed with double layer Tubigrip for edema control. Patient was educated to continue to elevate his bilateral lower extremities whenever at rest. He will follow-up with Dr. Aquino in 2 weeks. (2) Edema of right lower leg: CODE(S): R60.0 - Localized edema (3) Pain in right leg: CODE(S): M79.604 - Pain in right leg
[2023-05-15 14:04] VITALS: BP 108/60; PULSE 70; TEMP 35.9; BMI 34.1
--- NOTE | 2023-05-15 16:12 | PN.PCM_ITS ---
History of Present Illness Date of Service: 05/15/23 Chief Complaint: 87-year-old male that also lives at [facility] presents to the wound care center today for left lower extremity ulceration x2. And states it probably started from a blister and reopened. Patient has history of DM type II with insulin dependence, CKD stage III, HLD, HTN, congestive heart failure, CABG x1, pacemaker patient is currently on Eliquis. has been using [id number] antibiotic ointment. They state the wound has been opened in the past but has reopened again. He exhibits edema bilaterally especially in the left lower leg. denies wearing compression stockings. He was referred by PCP Dr. Olivas to the wound center for a nonhealing wound present for roughly 4 weeks. PCP recently adjusted furosemide. He denies N/B/F/chills. Denies further complaints. History of Wound: Wound is approximately 2 weeks old very superficial and small. We will trial him on Xeroform he could heal in a week. We will add compression stockings to his regime and follow him up. Subjective Subjective Mr. Garcia is a 87-year-old male presenting to the wound care center today for follow-up and evaluation of new ulceration to the left leg. Patient has been followed by home health care for dressing changes as well [facility]. He is getting dressing changes at home. He states improvement to the bilateral lower extremity especially the left leg. He denies trauma. He denies constitutional symptoms. No other pedal complaints at this time. Objective Data Objective Data Vital Signs: Vital Signs Temp Pulse Resp BP O2 Del Method 96.7 F L 70 20 H 108/60 Room Air 05/15/23 14:04 05/15/23 14:04 05/01/23 13:39 05/15/23 14:04 05/15/23 14:04 Oxygen Delivery Method Room Air Weight: 92.986 kg Body Mass Index (BMI) 34.1 Physical Exam Narrative Vascular: DP and PT pulses are palpable. CFT is brisk. Blanchable erythema without proximal streaking appreciated to the right leg. Skin temperature is warm to warm from proximal ankle to distal digits. No focal increase noted. Neurological: Light touch and epicritic sensation intact. Patient response to painful stimuli. Dermatological: Full-thickness ulceration appreciated to the right leg measuring 3.7 x 2.0 x 0.1 cm. Wound base is 100% granular in nature. No evidence of drainage, erythema with proximal streaking, probe to bone or sign of infection. Excisional debridement down to and including subcutaneous tissue with number 5 mm dermal curette to the right leg ulceration without incident. Predebridement measurement 3.5 x 1.8 x 0.1 cm. Postdebridement measurements are 3.7 x 2.0 x 0.1 cm. Musculoskeletal: Pain on palpation of the full-thickness ulceration on the right leg. No pain with calf compression. Debridement Note Debridement Note Debridement Free Text: Excisional debridement down to and including subcutaneous tissue with number 5 mm dermal curette to the right leg ulceration without incident. Predebridement measurement 3.5 x 1.8 x 0.1 cm. Postdebridement measurements are 3.7 x 2.0 x 0.1 cm. Post-Debridement Measurements and Additional Note: Post-Debridement Measurements/Treatment - Nurse 1 - General Ulcer Assessment Start: 05/01/23 13:38 Freq: Status: Active Protocol: WC.[email or web address] Activity Type Activity Date Activity User E-sign Co-sign Detail Recorded Client Recorded Date Recorded By Document 05/01/23 13:39 DL Desktop 05/01/23 13:44 DL Document 05/15/23 14:04 Desktop 05/15/23 14:21 05/01/23 05/15/23 13:39 14:04 - Today's Visit Information Type of service Follow-up Visit Follow-up Visit (Physician/JAR CAPPER (Physician/JAR CAPPER ) ) Arrival Mode Wheelchair Wheelchair Transfer Assistance None Manual Accompanied by Patient Identification Verified (Name & Yes ) Patient Requires Transmission-Based No No Precautions Safety Precautions Fall Prevention Height and Weight Body Mass Index (BMI) 34.1 34.1 BMI Classification Obese Obese Vital Signs Temperature (97.8 F-99.1 F) 96.6 F L 96.7 F L Temperature Source Temporal Temporal Pulse Rate (60-100) 70 70 Pulse Location Monitor Monitor Respiratory Rate (12-18) 20 H Respiratory rate source Observation Oxygen Delivery Method Room Air Blood Pressure (90/60-120/80) 102/58 L 108/60 Blood Pressure Mean (mm Hg) 72 76 Source Monitor Monitor Position Semi-Fowlers Blood Pressure Location Right Forearm History Since Last Visit- (Skip if this is Patient's initial visit) Have you changed medications since your No No last visit? Any new allergies or adverse reactions No No Had a fall/change in ADL's that may No Yes increase risk of falls Signs or symptoms of abuse and/or No No neglect since last visit Have you been in the hospital since your No No last visit? Has dressing in place as prescribed Yes Yes Has compression in place as prescribed Yes Has offloadiing in place as prescribed N/A Experienced any changes in pain level or No management Left Footwear Regular Shoe Right Footwear Regular Shoe Pain Scale: 0-10 Numeric Is Patient Pain Free? Yes Yes WC - Nurse 1 - General Ulcer Measurement Start: 05/01/23 13:38 Freq: Status: Active Protocol: Activity Type Activity Date Activity User E-sign Co-sign Detail Recorded Client Recorded Date Recorded By Document 05/01/23 13:39 DL Desktop 05/01/23 13:44 DL Document 05/15/23 14:04 GM Desktop 05/15/23 14:21 05/01/23 05/15/23 13:39 14:04 Wound Center Nurse 1 #3 Left Medial leg -Combined with other wound No -Current Size (cm) - Length 1.2 -Current Size (cm) - Width 0.6 -Current Size (cm) - Depth 0.1 -Total Square Cm 0.72 -Epithelialization None Present -Tunneling No -Undermining/Tunneling No -Circular Undermining No -Exudate Amt Medium -Exudate Type Serosanguineous -Wound Margin Distinct, Outline Attached -Granulation Amt Large (67-100%) -Granulation Quality [place] -Slough/Fibrin Yes -Necrosis Amt Small (1-33%) -Structure Exposed N/A -Texture (Jen-wound Skin Appearance) Assessed -Moisture (Jen-wound Skin Appearance) Assessed -Color (Jen-wound Skin Appearance) Assessed -Temperature (Jen-wound Skin No Abnormality Appearance) (Pt Warm) -Ulcer Cleansing Soap and Water -Foul Odor after Cleansing No -Anesthetic Used 5% Lidocaine Gel 2. RLE -Combined with other wound No -Current Size (cm) - Length 10 0.1 -Current Size (cm) - Width 10.5 0.1 -Current Size (cm) - Depth 0.1 0.1 -Total Square Cm 105.0 0.01 -Photo Taken Yes -Exudate Amt Medium -Exudate Type Serosanguineous -Wound Margin Distinct, Outline Attached -Granulation Amt Large (67-100%) -Granulation Quality [place] -Necrosis Amt None Present (0 %) -Structure Exposed N/A -Texture (Jen-wound Skin Appearance) Scarring -Moisture (Jen-wound Skin Appearance) Dry/Scaly -Color (Jen-wound Skin Appearance) Hemosiderin Staining -Temperature (Jen-wound Skin No Abnormality Appearance) (Pt Warm) -Tenderness on Palpation (Jen-wound No Skin Appearance) -Ulcer Cleansing Soap and Water Soap and Water -Foul Odor after Cleansing No No -Anesthetic Used 4% Lidocaine Solution #2 LT LOWER MEDIAL LEG CLUSTER -Current Size (cm) - Length 0 -Current Size (cm) - Width 0 -Current Size (cm) - Depth 0 -Total Square Cm 0 -Photo Taken Yes -Exudate Amt None Present -Granulation Amt Large (67-100%) -Granulation Quality [place] -Necrosis Amt None Present (0 %) -Structure Exposed N/A -Texture (Jen-wound Skin Appearance) No Abnormality -Moisture (Jen-wound Skin Appearance) Dry/Scaly -Color (Jen-wound Skin Appearance) Hemosiderin Staining -Temperature (Jen-wound Skin No Abnormality Appearance) (Pt Warm) -Tenderness on Palpation (Jen-wound No Skin Appearance) -Ulcer Cleansing Soap and Water -Foul Odor after Cleansing No 1. LLE medial Upper -Current Size (cm) - Length 0 -Current Size (cm) - Width 0 -Current Size (cm) - Depth 0 -Total Square Cm 0 -Photo Taken Yes -Exudate Amt None Present -Wound Margin Indistinct, Non -Visible -Granulation Amt Large (67-100%) -Granulation Quality [place] -Necrosis Amt None Present (0 %) -Structure Exposed N/A -Texture (Jen-wound Skin Appearance) No Abnormality, Scarring -Moisture (Jen-wound Skin Appearance) Dry/Scaly -Color (Jen-wound Skin Appearance) Hemosiderin Staining -Temperature (Jen-wound Skin No Abnormality Appearance) (Pt Warm) -Ulcer Cleansing Soap and Water -Foul Odor after Cleansing No #4 Left willson cluster -Current Size (cm) - Length 1.3 -Current Size (cm) - Width 0.7 -Current Size (cm) - Depth 0.1 -Total Square Cm 0.91 -Date of Last Picture (Recall this 05/15/23 field) -Photo Taken Yes -Undermining/Tunneling No -Circular Undermining No -Exudate Amt None Present -Wound Margin Distinct, Outline Attached -Ulcer Cleansing Soap and Water -Foul Odor after Cleansing No -Anesthetic Used 5% Lidocaine Gel Right Calf (cm) 31.4 Right Ankle (cm) 19.6 Left Calf (cm) 33.0 Left Ankle (cm) 22.0 WC - Nurse 2 - General Ulcer CM Notes Start: 05/01/23 13:38 Freq: Status: Active Protocol: Activity Type Activity Date Activity User E-sign Co-sign Detail Recorded Client Recorded Date Recorded By Document 05/01/23 13:48 Laptop 05/01/23 13:56 Document 05/15/23 14:29 Laptop 05/15/23 14:37 05/01/23 05/15/23 13:48 14:29 Wound Center Nurse 2 #3 Left Medial leg -Correct Patient No -Correct Side, Site, Position No -Correct Procedure No -Procedure Performed No 2. RLE -Time 13:54 -Correct Patient Yes No -Correct Side, Site, Position Yes No -Correct Procedure Yes No -Procedure Performed Yes No -Type of Procedure Debridement -Clinical Debridement Subcutaneous -Tissue Removed Subcutaneous -Post Debridement (cm) - Length 9.5 0 -Post Debridement (cm) - Width 10 0 -Post Debridement (cm) - Depth 0.1 0 -Total Square (Post) (cm) 95.0 0 -Area of Debridement (cm) - Length 9.5 0 -Area of Debridement (cm) - Width 10 0 -Total Square (Area) (cm) 95.0 0 -Tunneling No -Undermining/Tunneling No -Circular Undermining No -Wound/Ulcer Outcome Not Healed Healed- Epithelialized -Ulcer Cleansing Rinsed/ Irrigated with Saline -Foul Odor after Cleansing No -Bioengineered Tissue No -Bleeding Controlled with Pressure -Treatment Response Procedure Tolerated Well -Offloading No -Debridement - Subq, 1st 20sq cm Yes -Debridement, SubQ, ea addt'l 20sq cm 4 or part thereof #2 LT LOWER MEDIAL LEG CLUSTER -Correct Patient No -Correct Side, Site, Position No -Correct Procedure No -Procedure Performed No #4 Left [place] cluster -Time 14:29 -Correct Patient Yes -Correct Side, Site, Position Yes -Correct Procedure Yes -Procedure Performed Yes -Type of Procedure Debridement -Clinical Debridement Subcutaneous -Tissue Removed Subcutaneous -Post Debridement (cm) - Length 3.7 -Post Debridement (cm) - Width 2.0 -Post Debridement (cm) - Depth 0.1 -Total Square (Post) (cm) 7.40 -Area of Debridement (cm) - Length 3.7 -Area of Debridement (cm) - Width 2.0 -Total Square (Area) (cm) 7.40 -Tunneling No -Undermining/Tunneling No -Circular Undermining No -Wound/Ulcer Outcome Not Healed -Ulcer Cleansing Rinsed/ Irrigated with Saline -Foul Odor after Cleansing No -Bioengineered Tissue No -Bleeding Controlled with Pressure -Treatment Response Procedure Tolerated Well -Offloading No -Debridement - Subq, 1st 20sq cm Yes Pain Scale: 0-10 Numeric Is Patient Pain Free? Yes Yes WC - Nurse 3 - General Ulcer D/C NN Start: 05/01/23 13:38 Freq: Status: Active Protocol: Activity Type Activity Date Activity User E-sign Co-sign Detail Recorded Client Recorded Date Recorded By Document 05/01/23 14:00 [facility] Desktop 05/01/23 14:01 [facility] Document 05/15/23 14:43 Desktop 05/15/23 14:44 KW 05/01/23 05/15/23 14:00 14:43 Wound Care Center Nurse 3 2. RLE -Ulcer Cleansing Soap and Water -Foul Odor after Cleansing No -Primary Dressing Applied NonAdherent Contact Layer -Other Dressing xeroform and abd -Primary Dressing Covered/Secured with Dry Gauze & Roll Gauze, Secured with Tape -Other Covering per gm rn #4 Left [place]son cluster -Ulcer Cleansing Rinsed/ Irrigated with Saline -Primary Dressing Applied NonAdherent Contact Layer -Other Dressing Xeroform -Primary Dressing Covered/Secured with Dry Gauze & Roll Gauze, Secured with Tape Left -Multi-Layered Wrap Application Multi-Layer Comp - Left ($) -Tubular Bandage Double Layer -Size of Tubigrip Used Size D -Size D ($) 1 Right -Multi-Layered Wrap Application Multi-Layer Multi-Layer Comp - Right ($ Comp - Right ($ ) ) -Other per gm rn Treatment Response Procedure Tolerated Well Pain Scale: 0-10 Numeric Is Patient Pain Free? Yes Yes WC - Visit Discharge Discharge Condition Stable Stable Ambulatory Status Ambulatory Wheelchair Transportation Private Auto Private Auto Medication Reconcilliation completed & No provided to patient/care provider Clinical Summary of Care Provided Yes Assessment/Plan Assessment/Plan (1) Non-pressure ulcer of lower extremity with fat layer exposed: CODE(S): L97.902 - Non-pressure chronic ulcer of unspecified part of unspecified lower leg with fat layer exposed QUALIFIERS: Laterality: right Qualified Code(s): L97.912 - Non- pressure chronic ulcer of unspecified part of right lower leg with fat layer exposed PLAN: Patient was examined and evaluated. All findings were discussed with the patient. All questions were answered to the patient's satisfaction. Excisional debridement down to and including subcutaneous tissue with number 5 mm dermal curette to the right leg ulceration without incident. Predebridement measurement 3.5 x 1.8 x 0.1 cm. Postdebridement measurements are 3.7 x 2.0 x 0.1 cm. Left lower extremity was dressed with Xeroform dry sterile dressing and Tubigrip. The right lower extremity was dressed with a 3M multilayer compression bandage. Patient will follow-up in 2 weeks and have his dressing changes by his home health care or [facility]. (2) Edema of right lower leg: CODE(S): R60.0 - Localized edema
[2023-05-29 14:08] VITALS: BP 111/81; PULSE 70; RESP 18; TEMP 36.1; BMI 34.1
--- NOTE | 2023-05-29 14:41 | PN.PCM_ITS ---
History of Present Illness Date of Service: 05/29/23 Chief Complaint: 87-year-old [facility] care center today for left lower extremity ulceration x2. And states it probably started from a blister and reopened. Patient has history of DM type II with insulin dependence, CKD stage III, HLD, HTN, congestive heart failure, CABG x1, pacemaker patient is currently on Eliquis. has been using [id number] antibiotic ointment. They state the wound has been opened in the past but has reopened again. He exhibits edema bilaterally especially in the left lower leg. denies wearing compression stockings. He was referred by PCP Dr. Olivas to the wound center for a nonhealing wound present for roughly 4 weeks. PCP recently adjusted furosemide. He denies N/B/F/chills. Denies further complaints. History of Wound: Wound is approximately 2 weeks old very superficial and small. We will trial him on Xeroform he could heal in a week. We will add compression stockings to his regime and follow him up. Subjective Subjective Mr. Peraza is a 87-year-old male presenting to the wound care center today for follow-up and evaluation of bilateral leg swelling and full-thickness ulceration to the right leg. Patient has been doing compression wraps at home but believes per his that the CircAid wraps were not at the compression they are set to be. He is being seen by home health care for dressing changes. He does have ulceration to the buttocks area which is being treated with topical Bactroban. The is supposed to do dressing changes to the buttocks area 3 times per day but is only doing 1. He denies any trauma. Denies constitutional symptoms. No other pedal complaints at this time Objective Data Objective Data Vital Signs: Vital Signs Temp Pulse Resp BP O2 Del Method 96.9 F L 70 18 111/81 H Room Air 05/29/23 14:08 05/29/23 14:08 05/29/23 14:08 05/29/23 14:08 05/29/23 14:08 Oxygen Delivery Method Room Air Weight: 92.986 kg Body Mass Index (BMI) 34.1 Physical Exam Narrative Neurovascular status is unchanged. Nonpitting edema appreciated bilateral lower extremity. Blanchable erythema is appreciated to the left lower extremity as well as the right lower extremity. Evidence of partial-thickness ulceration appreciated to the anterior right leg measuring 2.0 x 0.7 x 1.1 cm. Wound base is granular nature. No drainage or sign of infection. No pain with calf compression. Selective debridement down to and including dermal tissue with a number 5 mm dermal curette to the right anterior leg without incident. Predebridement measurement was 1.0 x 0.3 x 0.1 cm. Postdebridement measurement is 2.0 x 0.7 x 0.1 cm. Debridement Note Debridement Note Debridement Free Text: Selective debridement down to and including dermal tissue with a number 5 mm dermal curette to the right anterior leg without incident. Predebridement measurement was 1.0 x 0.3 x 0.1 cm. Postdebridement measurement is 2.0 x 0.7 x 0.1 cm. Post-Debridement Measurements and Additional Note: Post-Debridement Measurements/Treatment - Nurse 1 - General Ulcer Assessment Start: 05/01/23 13:38 Freq: Status: Active Protocol: JOSÉ Activity Type Activity Date Activity User E-sign Co-sign Detail Recorded Client Recorded Date Recorded By Document 05/01/23 13:39 DL Desktop 05/01/23 13:44 DL Document 05/15/23 14:04 GM Desktop 05/15/23 14:21 GM Document 05/29/23 14:08 KW Desktop 05/29/23 14:30 KW 05/01/23 05/15/23 05/29/23 13:39 14:04 14:08 - Today's Visit Information Type of service Follow-up Visit Follow-up Visit Follow-up Visit (Physician/PROJECT MANAGEMENT ADVISOR (Physician/PROJECT MANAGEMENT ADVISOR (Physician/PROJECT MANAGEMENT ADVISOR ) ) ) Arrival Mode Wheelchair Wheelchair Wheelchair Transfer Assistance None Manual Accompanied by Patient Identification Verified (Name & Yes Yes ) Patient Requires Transmission-Based No No Precautions Safety Precautions Fall Prevention Height and Weight Body Mass Index (BMI) 34.1 34.1 34.1 BMI Classification Obese Obese Obese Vital Signs Temperature (97.8 F-99.1 F) 96.6 F L 96.7 F L 96.9 F L Temperature Source Temporal Temporal Temporal Pulse Rate (60-100) 70 70 70 Pulse Location Monitor Monitor Monitor Respiratory Rate (12-18) 20 H 18 Respiratory rate source Observation Observation Oxygen Delivery Method Room Air Room Air Blood Pressure (90/60-120/80) 102/58 L 108/60 111/81 H Blood Pressure Mean (mm Hg) 72 76 91 Source Monitor Monitor Monitor Position Semi-Fowlers Sitting Blood Pressure Location Right Forearm Right Forearm History Since Last Visit- (Skip if this is Patient's initial visit) Have you changed medications since your No No Yes last visit? Any new allergies or adverse reactions No No No Had a fall/change in ADL's that may No Yes No increase risk of falls Signs or symptoms of abuse and/or No No No neglect since last visit Have you been in the hospital since your No No No last visit? Has dressing in place as prescribed Yes Yes Yes Has compression in place as prescribed Yes Yes Has offloadiing in place as prescribed N/A No Experienced any changes in pain level or No No management Left Footwear Regular Shoe Regular Shoe Right Footwear Regular Shoe Regular Shoe Pain Scale: 0-10 Numeric Is Patient Pain Free? Yes Yes Yes WC - Nurse 1 - General Ulcer Measurement Start: 05/01/23 13:38 Freq: Status: Active Protocol: Activity Type Activity Date Activity User E-sign Co-sign Detail Recorded Client Recorded Date Recorded By Document 05/01/23 13:39 DL Desktop 05/01/23 13:44 DL Document 05/15/23 14:04 GM Desktop 05/15/23 14:21 GM Document 05/29/23 14:08 KW Desktop 05/29/23 14:30 KW 05/01/23 05/15/23 05/29/23 13:39 14:04 14:08 Wound Center Nurse 1 #4 Left willson cluster -Current Size (cm) - Length 1.3 0.1 -Current Size (cm) - Width 0.7 0.1 -Current Size (cm) - Depth 0.1 0.1 -Total Square Cm 0.91 0.01 -Date of Last Picture (Recall this 05/15/23 field) -Photo Taken Yes -Undermining/Tunneling No -Circular Undermining No -Exudate Amt None Present -Wound Margin Distinct, Outline Attached -Texture (Jen-wound Skin Appearance) Assessed -Moisture (Jen-wound Skin Appearance) Assessed -Color (Jen-wound Skin Appearance) Assessed, Hemosiderin Staining -Ulcer Cleansing Soap and Water Soap and Water -Foul Odor after Cleansing No -Anesthetic Used 5% Lidocaine Gel -Wound Comment(s) scabbed #3 Left Medial leg -Combined with other wound No -Current Size (cm) - Length 1.2 -Current Size (cm) - Width 0.6 -Current Size (cm) - Depth 0.1 -Total Square Cm 0.72 -Epithelialization None Present -Tunneling No -Undermining/Tunneling No -Circular Undermining No -Exudate Amt Medium -Exudate Type Serosanguineous -Wound Margin Distinct, Outline Attached -Granulation Amt Large (67-100%) -Granulation Quality Red -Slough/Fibrin Yes -Necrosis Amt Small (1-33%) -Structure Exposed N/A -Texture (Jen-wound Skin Appearance) Assessed -Moisture (Jen-wound Skin Appearance) Assessed -Color (Jen-wound Skin Appearance) Assessed -Temperature (Jen-wound Skin No Abnormality Appearance) (Pt Warm) -Ulcer Cleansing Soap and Water -Foul Odor after Cleansing No -Anesthetic Used 5% Lidocaine Gel 2. RLE -Combined with other wound No -Current Size (cm) - Length 10 0.1 -Current Size (cm) - Width 10.5 0.1 -Current Size (cm) - Depth 0.1 0.1 -Total Square Cm 105.0 0.01 -Photo Taken Yes -Exudate Amt Medium -Exudate Type Serosanguineous -Wound Margin Distinct, Outline Attached -Granulation Amt Large (67-100%) -Granulation Quality [place] -Necrosis Amt None Present (0 %) -Structure Exposed N/A -Texture (Jen-wound Skin Appearance) Scarring -Moisture (Jen-wound Skin Appearance) Dry/Scaly -Color (Jen-wound Skin Appearance) Hemosiderin Staining -Temperature (Jen-wound Skin No Abnormality Appearance) (Pt Warm) -Tenderness on Palpation (Jen-wound No Skin Appearance) -Ulcer Cleansing Soap and Water Soap and Water -Foul Odor after Cleansing No No -Anesthetic Used 4% Lidocaine Solution #2 LT LOWER MEDIAL LEG CLUSTER -Current Size (cm) - Length 0 -Current Size (cm) - Width 0 -Current Size (cm) - Depth 0 -Total Square Cm 0 -Photo Taken Yes -Exudate Amt None Present -Granulation Amt Large (67-100%) -Granulation Quality [place] -Necrosis Amt None Present (0 %) -Structure Exposed N/A -Texture (Jen-wound Skin Appearance) No Abnormality -Moisture (Jen-wound Skin Appearance) Dry/Scaly -Color (Jen-wound Skin Appearance) Hemosiderin Staining -Temperature (Jen-wound Skin No Abnormality Appearance) (Pt Warm) -Tenderness on Palpation (Jen-wound No Skin Appearance) -Ulcer Cleansing Soap and Water -Foul Odor after Cleansing No 1. LLE medial Upper -Current Size (cm) - Length 0 -Current Size (cm) - Width 0 -Current Size (cm) - Depth 0 -Total Square Cm 0 -Photo Taken Yes -Exudate Amt None Present -Wound Margin Indistinct, Non -Visible -Granulation Amt Large (67-100%) -Granulation Quality [place] -Necrosis Amt None Present (0 %) -Structure Exposed N/A -Texture (Jen-wound Skin Appearance) No Abnormality, Scarring -Moisture (Jen-wound Skin Appearance) Dry/Scaly -Color (Jen-wound Skin Appearance) Hemosiderin Staining -Temperature (Jen-wound Skin No Abnormality Appearance) (Pt Warm) -Ulcer Cleansing Soap and Water -Foul Odor after Cleansing No #5 MED RLE -Current Size (cm) - Length 3.1 -Current Size (cm) - Width 1.0 -Current Size (cm) - Depth 0.1 -Total Square Cm 3.10 -Wound Margin Distinct, Outline Attached -Granulation Amt Medium (34-66%) -Granulation Quality Red -Necrosis Amt Small (1-33%) -Necrotic Tissue Type Adherent Slough -Texture (Jen-wound Skin Appearance) Assessed -Moisture (Jen-wound Skin Appearance) Assessed, Weeping -Color (Jen-wound Skin Appearance) Assessed, Hemosiderin Staining -Temperature (Jen-wound Skin No Abnormality Appearance) (Pt Warm) -Ulcer Cleansing Soap and Water -Anesthetic Used 5% Lidocaine Gel Right Calf (cm) 31.4 34.0 Right Ankle (cm) 19.6 21 Left Calf (cm) 33.0 33.0 Left Ankle (cm) 22.0 21.5 WC - Nurse 2 - General Ulcer CM Notes Start: 05/01/23 13:38 Freq: Status: Active Protocol: Activity Type Activity Date Activity User E-sign Co-sign Detail Recorded Client Recorded Date Recorded By Document 05/01/23 13:48 Laptop 05/01/23 13:56 Document 05/15/23 14:29 Laptop 05/15/23 14:37 Document 05/29/23 14:39 Laptop 05/29/23 14:41 05/01/23 05/15/23 05/29/23 13:48 14:29 14:39 Wound Center Nurse 2 #4 Left willson cluster -Time 14:29 -Correct Patient Yes No -Correct Side, Site, Position Yes No -Correct Procedure Yes No -Procedure Performed Yes No -Type of Procedure Debridement -Clinical Debridement Subcutaneous -Tissue Removed Subcutaneous -Post Debridement (cm) - Length 3.7 0 -Post Debridement (cm) - Width 2.0 0 -Post Debridement (cm) - Depth 0.1 0 -Total Square (Post) (cm) 7.40 0 -Area of Debridement (cm) - Length 3.7 0 -Area of Debridement (cm) - Width 2.0 0 -Total Square (Area) (cm) 7.40 0 -Tunneling No -Undermining/Tunneling No -Circular Undermining No -Wound/Ulcer Outcome Not Healed Healed- Epithelialized -Ulcer Cleansing Rinsed/ Irrigated with Saline -Foul Odor after Cleansing No -Bioengineered Tissue No -Bleeding Controlled with Pressure -Treatment Response Procedure Tolerated Well -Offloading No -Debridement - Subq, 1st 20sq cm Yes #3 Left Medial leg -Correct Patient No -Correct Side, Site, Position No -Correct Procedure No -Procedure Performed No 2. RLE -Time 13:54 -Correct Patient Yes No -Correct Side, Site, Position Yes No -Correct Procedure Yes No -Procedure Performed Yes No -Type of Procedure Debridement -Clinical Debridement Subcutaneous -Tissue Removed Subcutaneous -Post Debridement (cm) - Length 9.5 0 -Post Debridement (cm) - Width 10 0 -Post Debridement (cm) - Depth 0.1 0 -Total Square (Post) (cm) 95.0 0 -Area of Debridement (cm) - Length 9.5 0 -Area of Debridement (cm) - Width 10 0 -Total Square (Area) (cm) 95.0 0 -Tunneling No -Undermining/Tunneling No -Circular Undermining No -Wound/Ulcer Outcome Not Healed Healed- Epithelialized -Ulcer Cleansing Rinsed/ Irrigated with Saline -Foul Odor after Cleansing No -Bioengineered Tissue No -Bleeding Controlled with Pressure -Treatment Response Procedure Tolerated Well -Offloading No -Debridement - Subq, 1st 20sq cm Yes -Debridement, SubQ, ea addt'l 20sq cm 4 or part thereof #2 LT LOWER MEDIAL LEG CLUSTER -Correct Patient No -Correct Side, Site, Position No -Correct Procedure No -Procedure Performed No #5 MED RLE -Time 14:40 -Correct Patient Yes -Correct Side, Site, Position Yes -Correct Procedure Yes -Procedure Performed Yes -Type of Procedure Debridement -Clinical Debridement Epidermis / Dermis -Tissue Removed Epidermis, Dermis -Post Debridement (cm) - Length 2.0 -Post Debridement (cm) - Width 0.7 -Post Debridement (cm) - Depth 0.1 -Total Square (Post) (cm) 1.40 -Area of Debridement (cm) - Length 2.0 -Area of Debridement (cm) - Width 0.7 -Total Square (Area) (cm) 1.40 -Tunneling No -Undermining/Tunneling No -Circular Undermining No -Wound/Ulcer Outcome Not Healed -Ulcer Cleansing Rinsed/ Irrigated with Saline -Foul Odor after Cleansing No -Bioengineered Tissue No -Bleeding Controlled with Pressure -Treatment Response Procedure Tolerated Well -Offloading No -Debridement - Open, 1st 20sq cm Yes Pain Scale: 0-10 Numeric Is Patient Pain Free? Yes Yes Yes WC - Nurse 3 - General Ulcer D/C NN Start: 05/01/23 13:38 Freq: Status: Active Protocol: Activity Type Activity Date Activity User E-sign Co-sign Detail Recorded Client Recorded Date Recorded By Document 05/01/23 14:00 [facility] Desktop 05/01/23 14:01 [facility] Document 05/15/23 14:43 KW Desktop 05/15/23 14:44 KW Edit Result 05/15/23 14:43 KW (1) [id number] 05/16/23 16:57 PL (1) Bilateral - Multi-Layered Wrap Application => Multi-Layer Comp - => Bilat ($) Left - Multi-Layered Wrap Application Multi-Layer Comp - => Left ($) => Right - Multi-Layered Wrap Application Multi-Layer Comp - => Right ($) => 05/01/23 05/15/23 14:00 14:43 Wound Care Center Nurse 3 #4 Left willson cluster -Ulcer Cleansing Rinsed/ Irrigated with Saline -Primary Dressing Applied NonAdherent Contact Layer -Other Dressing Xeroform -Primary Dressing Covered/Secured with Dry Gauze & Roll Gauze, Secured with Tape 2. RLE -Ulcer Cleansing Soap and Water -Foul Odor after Cleansing No -Primary Dressing Applied NonAdherent Contact Layer -Other Dressing xeroform and abd -Primary Dressing Covered/Secured with Dry Gauze & Roll Gauze, Secured with Tape -Other Covering per gm rn Bilateral -Multi-Layered Wrap Application Multi-Layer Comp - Bilat ($ ) Left -Tubular Bandage Double Layer -Size of Tubigrip Used Size D -Size D ($) 1 Right -Multi-Layered Wrap Application Multi-Layer Comp - Right ($ ) -Other per gm rn Treatment Response Procedure Tolerated Well Pain Scale: 0-10 Numeric Is Patient Pain Free? Yes Yes WC - Visit Discharge Discharge Condition Stable Stable Ambulatory Status Ambulatory Wheelchair Transportation Private Auto Private Auto Medication Reconcilliation completed & No provided to patient/care provider Clinical Summary of Care Provided Yes Assessment/Plan Assessment/Plan (1) Non-pressure chronic ulcer of right calf limited to breakdown of skin: CODE(S): L97.211 - Non-pressure chronic ulcer of right calf limited to breakdown of skin PLAN: Patient was examined evaluated. All findings were discussed with the patient. All questions were answered to the patient satisfaction peer Selective debridement down to and including dermal tissue with a number 5 mm dermal curette to the right anterior leg without incident. Predebridement measurement was 1.0 x 0.3 x 0.1 cm. Postdebridement measurement is 2.0 x 0.7 x 0.1 cm. Bilateral lower extremities were dressed with Xeroform, dry sterile dressing and CircAid wraps bilateral. Patient was educated how to don the CircAid wraps. Patient was educated on donning the wraps today his is understanding. The patient will follow-up with nurse practitioner for the buttock wound and Dr. Aquino for the bilateral lower extremities in 1 week. He left the office pleased with his visit. (2) Bilateral lower extremity edema: CODE(S): R60.0 - Localized edema PLAN: Patient educated as well as his how to don the CircAid wraps of the right pressure setting.
== END 2023-05-30 23:59 | disposition home or self-care (01) ==
LOC: WC 14:15
PROVIDERS: PCP Internal Medicine; Referring Provider Internal Medicine; Visit Provider Podiatrist Foot & Ankle Surgery
DX: L97.211 Non-pressure chronic ulcer of right calf limited to breakdown of skin (principal); I13.0 Hypertensive heart and chronic kidney disease with heart failure and stage 1 through stage 4 chronic kidney disease, or unspecified chronic kidney disease; I50.9 Heart failure, unspecified; E11.22 Type 2 diabetes mellitus with diabetic chronic kidney disease; Z79.4 Long term (current) use of insulin; N18.30 Chronic kidney disease, stage 3 unspecified; E78.5 Hyperlipidemia, unspecified; Z95.1 Presence of aortocoronary bypass graft; Z95.0 Presence of cardiac pacemaker; Z79.01 Long term (current) use of anticoagulants; R60.0 Localized edema; M79.604 Pain in right leg
CPT/HCPCS: 11042; 11045; 29581; 97597

== ENCOUNTER 2023-06-19 14:15 | Outpatient (RCR) | payer MEDICARE, SELFPAY ==
[2023-05-31 00:31] VITALS: BP 111/81; PULSE 70; RESP 18; TEMP 36.1; BMI 34.1
[2023-06-05 14:19] VITALS: BP 108/59; PULSE 70; RESP 18; TEMP 36.4; BMI 34.1
--- NOTE | 2023-06-05 15:15 | PCM.WC.PN ---
History of Present Illness Date of Service: 06/05/23 Chief Complaint: 87-year-old male that also lives at [facility] presents to the wound care center today for left lower extremity ulceration x2. And states it probably started from a blister and reopened. Patient has history of DM type II with insulin dependence, CKD stage III, HLD, HTN, congestive heart failure, CABG x1, pacemaker patient is currently on Eliquis. has been using [id number] antibiotic ointment. They state the wound has been opened in the past but has reopened again. He exhibits edema bilaterally especially in the left lower leg. denies wearing compression stockings. He was referred by PCP Dr. Olivas to the wound center for a nonhealing wound present for roughly 4 weeks. PCP recently adjusted furosemide. He denies N/B/F/chills. Denies further complaints. History of Wound: Wound is approximately 2 weeks old very superficial and small. We will trial him on Xeroform he could heal in a week. We will add compression stockings to his regime and follow him up. Subjective Subjective Mr. Gracia is a 87-year-old male presenting to the wound care center today for follow-up and evaluation of new ulceration to the left and right leg. The patient's continues to do home wound care dressing changes. Home health care services will begin dressing changes this Saturday. He denies any trauma to the right leg. He denies constitutional symptoms. No other pedal complaints at this time. Objective Data Objective Data Vital Signs: Vital Signs Temp Pulse Resp BP O2 Del Method 97.5 F L 70 18 108/59 L Room Air 06/05/23 14:19 06/05/23 14:19 06/05/23 14:19 06/05/23 14:19 06/05/23 14:19 Oxygen Delivery Method Room Air Weight: 92.986 kg Body Mass Index (BMI) 34.1 Physical Exam Narrative Vascular: DP and PT pulses are palpable. CFT is brisk. Blanchable erythema without proximal streaking appreciated to the right leg. Skin temperature is warm to warm from proximal ankle to distal digits. No focal increase noted. Neurological: Light touch and epicritic sensation intact. Patient response to painful stimuli. Dermatological: Full-thickness ulceration appreciated to the right leg measuring 2.5 x 0.8 x 0.1 cm. Wound base is fibrogranular nature. No evidence of infection. Sanguinous drainage noted. Evidence of partial-thickness wound to the anterior left leg no sign of infection. Excisional debridement down to and including subcutaneous tissue with number 5 mm dermal curette to the right leg ulceration without incident. Predebridement measurement 2.0 x 0.6 x 0.1 cm. Postdebridement measurements are 2.5 x 0.8 x 0.1 cm. Musculoskeletal: Pain on palpation of the full-thickness ulceration on the right leg. No pain with calf compression. Debridement Note Debridement Note Debridement Free Text: Excisional debridement down to and including subcutaneous tissue with number 5 mm dermal curette to the right leg ulceration without incident. Predebridement measurement 2.0 x 0.6 x 0.1 cm. Postdebridement measurements are 2.5 x 0.8 x 0.1 cm. Post-Debridement Measurements and Additional Note: Post-Debridement Measurements/Treatment - Nurse 1 - General Ulcer Assessment Start: 06/05/23 14:19 Freq: Status: Active Protocol: [id number].[email or web address] Activity Type Activity Date Activity User E-sign Co-sign Detail Recorded Client Recorded Date Recorded By Document 06/05/23 14:19 Desktop 06/05/23 14:27 06/05/23 14:19 - Today's Visit Information Type of service Follow-up Visit (Physician/SENIOR SYSTEMS DEVELOPER ) Arrival Mode Wheelchair Transfer Assistance Manual Accompanied by Patient Identification Verified (Name & Yes ) Patient Requires Transmission-Based No Precautions Safety Precautions Fall Prevention Height and Weight Body Mass Index (BMI) 34.1 BMI Classification Obese Vital Signs Temperature (97.8 F-99.1 F) 97.5 F L Temperature Source Temporal Pulse Rate (60-100) 70 Pulse Location Monitor Respiratory Rate (12-18) 18 Respiratory rate source Observation Oxygen Delivery Method Room Air Blood Pressure (90/60-120/80) 108/59 L Blood Pressure Mean (mm Hg) 75 Source Monitor Position Semi-Fowlers Blood Pressure Location Right Arm History Since Last Visit- (Skip if this is Patient's initial visit) Have you changed medications since your No last visit? Any new allergies or adverse reactions No Had a fall/change in ADL's that may No increase risk of falls Signs or symptoms of abuse and/or No neglect since last visit Have you been in the hospital since your No last visit? Has dressing in place as prescribed Yes Has compression in place as prescribed Yes Has offloadiing in place as prescribed No Experienced any changes in pain level or No management Left Footwear Regular Shoe Right Footwear Regular Shoe Pain Scale: 0-10 Numeric Is Patient Pain Free? Yes - Nurse 1 - General Ulcer Measurement Start: 06/05/23 14:19 Freq: Status: Active Protocol: Activity Type Activity Date Activity User E-sign Co-sign Detail Recorded Client Recorded Date Recorded By Document 06/05/23 14:19 Desktop 06/05/23 14:27 06/05/23 14:19 Wound Center Nurse 1 #5 MED RLE -Current Size (cm) - Length 1.0 -Current Size (cm) - Width 2.3 -Current Size (cm) - Depth 0.1 -Total Square Cm 2.30 -Photo Taken No -Epithelialization Small 1-33% -Tunneling No -Undermining/Tunneling No -Circular Undermining No -Exudate Amt Small -Exudate Type Serous -Wound Margin Distinct, Outline Attached -Granulation Amt Medium (34-66%) -Granulation Quality Red -Necrosis Amt Small (1-33%) -Necrotic Tissue Type Adherent Slough -Structure Exposed N/A -Texture (Jen-wound Skin Appearance) Assessed, Scarring -Moisture (Jen-wound Skin Appearance) Assessed -Color (Jen-wound Skin Appearance) Assessed, Erythema -Temperature (Jen-wound Skin No Abnormality Appearance) (Pt Warm) -Tenderness on Palpation (Jen-wound No Skin Appearance) -Ulcer Cleansing Soap and Water -Foul Odor after Cleansing No -Anesthetic Used 5% Lidocaine Gel Right Calf (cm) 33.0 Right Ankle (cm) 21.3 - Nurse 2 - General Ulcer CM Notes Start: 06/05/23 14:19 Freq: Status: Active Protocol: Activity Type Activity Date Activity User E-sign Co-sign Detail Recorded Client Recorded Date Recorded By Document 06/05/23 14:38 Laptop 06/05/23 14:41 06/05/23 14:38 Wound Center Nurse 2 #5 MED RLE -Time 14:40 -Correct Patient Yes -Correct Side, Site, Position Yes -Correct Procedure Yes -Procedure Performed Yes -Type of Procedure Debridement -Clinical Debridement Subcutaneous -Tissue Removed Subcutaneous -Post Debridement (cm) - Length 2.5 -Post Debridement (cm) - Width 0.8 -Post Debridement (cm) - Depth 0.1 -Total Square (Post) (cm) 2.00 -Area of Debridement (cm) - Length 2.5 -Area of Debridement (cm) - Width 0.8 -Total Square (Area) (cm) 2.00 -Tunneling No -Undermining/Tunneling No -Circular Undermining No -Wound/Ulcer Outcome Not Healed -Ulcer Cleansing Rinsed/ Irrigated with Saline -Foul Odor after Cleansing No -Bioengineered Tissue No -Bleeding Controlled with Pressure -Treatment Response Procedure Tolerated Well -Offloading No -Debridement - Subq, 1st 20sq cm Yes Pain Scale: 0-10 Numeric Is Patient Pain Free? Yes - Nurse 3 - General Ulcer D/C NN Start: 06/05/23 14:19 Freq: Status: Active Protocol: Activity Type Activity Date Activity User E-sign Co-sign Detail Recorded Client Recorded Date Recorded By Document 06/05/23 14:49 [facility] Desktop 06/05/23 14:51 [facility] 06/05/23 14:49 Wound Care Center Nurse 3 #5 MED RLE -Primary Dressing Applied NonAdherent Contact Layer -Other Dressing xeroform; -Primary Dressing Covered/Secured with Dry Gauze & Roll Gauze, Secured with Tape -Other Covering drsg per gm rn ble -Other circaids applied per gm rn Treatment Response Procedure Tolerated Well Pain Scale: 0-10 Numeric Is Patient Pain Free? Yes - Visit Discharge Discharge Condition Stable Ambulatory Status Wheelchair Transportation Private Auto Accompanied by Facility Type Home Health Assessment/Plan Assessment/Plan (1) Non-pressure chronic ulcer of unspecified part of right lower leg with fat layer exposed: CODE(S): L97.912 - Non-pressure chronic ulcer of unspecified part of right lower leg with fat layer exposed PLAN: Patient was examined and evaluated. All findings were discussed with the patient. All questions were answered to the patient's satisfaction. Excisional debridement down to and including subcutaneous tissue with number 5 mm dermal curette to the right leg ulceration without incident. Predebridement measurement 2.0 x 0.6 x 0.1 cm. Postdebridement measurements are 2.5 x 0.8 x 0.1 cm. The bilateral legs ulcerations were dressed with Viktoriya, CircAid's to control his edema. Patient was instructed to have home health care change his dressings daily or every other day based on how the follow-up with the patient at his home and have his change during the day as they are not. She was understanding of this. Follow-up in 1 week. (2) Bilateral lower extremity edema: CODE(S): R60.0 - Localized edema
[2023-06-19 14:45] VITALS: BP 111/73; PULSE 70; RESP 18; BMI 34.1
--- NOTE | 2023-06-19 15:21 | PN.PCM_ITS ---
History of Present Illness Date of Service: 06/19/23 Chief Complaint: 87-year-old male that also lives at [facility] presents to the wound care center today for left lower extremity ulceration x2. And states it probably started from a blister and reopened. Patient has history of DM type II with insulin dependence, CKD stage III, HLD, HTN, congestive heart failure, CABG x1, pacemaker patient is currently on Eliquis. has been using [id number] antibiotic ointment. They state the wound has been opened in the past but has reopened again. He exhibits edema bilaterally especially in the left lower leg. denies wearing compression stockings. He was referred by PCP Dr. Olivas to the wound center for a nonhealing wound present for roughly 4 weeks. PCP recently adjusted furosemide. He denies N/B/F/chills. Denies further complaints. History of Wound: Wound is approximately 2 weeks old very superficial and small. We will trial him on Xeroform he could heal in a week. We will add compression stockings to his regime and follow him up. Subjective Subjective Mr. Garcia is a 87-year-old male presenting to the wound care center today for follow-up and evaluation of new ulceration to the left and right leg. The patient's continues to do home wound care dressing changes. Home health care services will begin dressing changes this Saturday. He denies any trauma to the right leg. He denies constitutional symptoms. No other pedal complaints at this time. Objective Data Objective Data Vital Signs: Vital Signs Temp Pulse Resp BP O2 Del Method 97.5 F L 70 18 111/73 Room Air 06/05/23 14:19 06/19/23 14:45 06/19/23 14:45 06/19/23 14:45 06/19/23 14:45 Oxygen Delivery Method Room Air Weight: 92.986 kg Body Mass Index (BMI) 34.1 Physical Exam Narrative Vascular: DP and PT pulses are palpable. CFT is brisk. Blanchable erythema without proximal streaking appreciated to the right leg. Skin temperature is warm to warm from proximal ankle to distal digits. No focal increase noted. Neurological: Light touch and epicritic sensation intact. Patient response to painful stimuli. Dermatological: Full-thickness ulceration right leg now healed. There is no evidence of wounds to the left lower extremity. Musculoskeletal: No pain to palpation of bilateral lower extremity. No pain with calf compression. Debridement Note Debridement Note Post-Debridement Measurements and Additional Note: Post-Debridement Measurements/Treatment - Nurse 1 - General Ulcer Assessment Start: 06/05/23 14:19 Freq: Status: Active Protocol: JOSÉ Activity Type Activity Date Activity User E-sign Co-sign Detail Recorded Client Recorded Date Recorded By Document 06/05/23 14:19 GM Desktop 06/05/23 14:27 GM Document 06/19/23 14:45 KW Desktop 06/19/23 14:52 KW 06/05/23 06/19/23 14:19 14:45 WC - Today's Visit Information Type of service Follow-up Visit Follow-up Visit (Physician/ECONOMIC HISTORIAN (Physician/ECONOMIC HISTORIAN ) ) Arrival Mode Wheelchair Wheelchair Transfer Assistance Manual Accompanied by Patient Identification Verified (Name & Yes Yes ) Patient Requires Transmission-Based No Precautions Safety Precautions Fall Prevention Height and Weight Body Mass Index (BMI) 34.1 34.1 BMI Classification Obese Obese Vital Signs Temperature (97.8 F-99.1 F) 97.5 F L Temperature Source Temporal Pulse Rate (60-100) 70 70 Pulse Location Monitor Monitor Respiratory Rate (12-18) 18 18 Respiratory rate source Observation Observation Oxygen Delivery Method Room Air Room Air Blood Pressure (90/60-120/80) 108/59 L 111/73 Blood Pressure Mean (mm Hg) 75 85 Source Monitor Monitor Position Semi-Fowlers Sitting Blood Pressure Location Right Arm Left Arm History Since Last Visit- (Skip if this is Patient's initial visit) Have you changed medications since your No No last visit? Any new allergies or adverse reactions No No Had a fall/change in ADL's that may No No increase risk of falls Signs or symptoms of abuse and/or No No neglect since last visit Have you been in the hospital since your No No last visit? Has dressing in place as prescribed Yes Yes Has compression in place as prescribed Yes Yes Has offloadiing in place as prescribed No No Experienced any changes in pain level or No No management Left Footwear Regular Shoe Regular Shoe Right Footwear Regular Shoe Regular Shoe Pain Scale: 0-10 Numeric Is Patient Pain Free? Yes Yes - Nurse 1 - General Ulcer Measurement Start: 06/05/23 14:19 Freq: Status: Active Protocol: Activity Type Activity Date Activity User E-sign Co-sign Detail Recorded Client Recorded Date Recorded By Document 06/05/23 14:19 GM Desktop 06/05/23 14:27 GM Document 06/19/23 14:45 KW Desktop 06/19/23 14:52 KW 06/05/23 06/19/23 14:19 14:45 Wound Center Nurse 1 #5 MED RLE -Current Size (cm) - Length 1.0 0 -Current Size (cm) - Width 2.3 0 -Current Size (cm) - Depth 0.1 0 -Total Square Cm 2.30 0 -Photo Taken No -Epithelialization Small 1-33% -Tunneling No -Undermining/Tunneling No -Circular Undermining No -Exudate Amt Small -Exudate Type Serous -Wound Margin Distinct, Outline Attached -Granulation Amt Medium (34-66%) -Granulation Quality Red -Necrosis Amt Small (1-33%) -Necrotic Tissue Type Adherent Slough -Structure Exposed N/A -Texture (Jen-wound Skin Appearance) Assessed, Scarring -Moisture (Jen-wound Skin Appearance) Assessed -Color (Jen-wound Skin Appearance) Assessed, Erythema -Temperature (Jen-wound Skin No Abnormality Appearance) (Pt Warm) -Tenderness on Palpation (Jen-wound No Skin Appearance) -Ulcer Cleansing Soap and Water -Foul Odor after Cleansing No -Anesthetic Used 5% Lidocaine Gel Right Calf (cm) 33.0 Right Ankle (cm) 21.3 WC - Nurse 2 - General Ulcer CM Notes Start: 06/05/23 14:19 Freq: Status: Active Protocol: Activity Type Activity Date Activity User E-sign Co-sign Detail Recorded Client Recorded Date Recorded By Document 06/05/23 14:38 Laptop 06/05/23 14:41 06/05/23 14:38 Wound Center Nurse 2 -Time 14:40 -Correct Patient Yes -Correct Side, Site, Position Yes -Correct Procedure Yes -Procedure Performed Yes -Type of Procedure Debridement -Clinical Debridement Subcutaneous -Tissue Removed Subcutaneous -Post Debridement (cm) - Length 2.5 -Post Debridement (cm) - Width 0.8 -Post Debridement (cm) - Depth 0.1 -Total Square (Post) (cm) 2.00 -Area of Debridement (cm) - Length 2.5 -Area of Debridement (cm) - Width 0.8 -Total Square (Area) (cm) 2.00 -Tunneling No -Undermining/Tunneling No -Circular Undermining No -Wound/Ulcer Outcome Not Healed -Ulcer Cleansing Rinsed/ Irrigated with Saline -Foul Odor after Cleansing No -Bioengineered Tissue No -Bleeding Controlled with Pressure -Treatment Response Procedure Tolerated Well -Offloading No -Debridement - Subq, 1st 20sq cm Yes Pain Scale: 0-10 Numeric Is Patient Pain Free? Yes - Nurse 3 - General Ulcer D/C NN Start: 06/05/23 14:19 Freq: Status: Active Protocol: Activity Type Activity Date Activity User E-sign Co-sign Detail Recorded Client Recorded Date Recorded By Document 06/05/23 14:49 [facility] Desktop 06/05/23 14:51 [facility] 06/05/23 14:49 Wound Care Center Nurse 3 #5 MED RLE -Primary Dressing Applied NonAdherent Contact Layer -Other Dressing xeroform; -Primary Dressing Covered/Secured with Dry Gauze & Roll Gauze, Secured with Tape -Other Covering drsg per gm rn ble -Other circaids applied per gm rn Treatment Response Procedure Tolerated Well Pain Scale: 0-10 Numeric Is Patient Pain Free? Yes WC - Visit Discharge Discharge Condition Stable Ambulatory Status Wheelchair Transportation Private Auto Accompanied by Facility Type Home Health Assessment/Plan Assessment/Plan (1) Non-pressure chronic ulcer of unspecified part of right lower leg with fat layer exposed: CODE(S): L97.912 - Non-pressure chronic ulcer of unspecified part of right lower leg with fat layer exposed PLAN: Patient was examined and evaluated. All findings were discussed with the patient. All questions were answered to the patient satisfaction. The patient's bilateral lower extremity ulcerations are now healed. He will continue use his CircAid's as instructed. Educated the patient that if he has any breakdown in skin he is to follow-up at the wound care center for reevaluation. Patient and his are understanding of this in the office pleased to visit. Follow-up as needed. (2) Non-pressure chronic ulcer of left calf limited to breakdown of skin: CODE(S): L97.221 - Non-pressure chronic ulcer of left calf limited to breakdown of skin (3) Edema of right lower leg: CODE(S): R60.0 - Localized edema
== END 2023-06-20 12:15 | disposition home or self-care (01) ==
LOC: WC 14:15
PROVIDERS: PCP Internal Medicine; Referring Provider Internal Medicine; Visit Provider Podiatrist Foot & Ankle Surgery
DX: L97.221 Non-pressure chronic ulcer of left calf limited to breakdown of skin (principal); L97.912 Non-pressure chronic ulcer of unspecified part of right lower leg with fat layer exposed; I13.0 Hypertensive heart and chronic kidney disease with heart failure and stage 1 through stage 4 chronic kidney disease, or unspecified chronic kidney disease; I50.9 Heart failure, unspecified; E11.22 Type 2 diabetes mellitus with diabetic chronic kidney disease; Z79.4 Long term (current) use of insulin; N18.30 Chronic kidney disease, stage 3 unspecified; E78.5 Hyperlipidemia, unspecified; R60.0 Localized edema; Z95.1 Presence of aortocoronary bypass graft; Z95.0 Presence of cardiac pacemaker
CPT/HCPCS: 11042

== ENCOUNTER → 2023-07-23 | Outpatient (CLI) | payer MEDICARE, SELFPAY ==
--- OUTSIDE RECORDS SUMMARY | 2023-07-23 12:34 | XMS RPT_ITS | CCD ---
Author Name Unknown Address [id number] [place] [address] Organization [facility] Care Team Providers Care Repairer Shoe Sticks Name Role Phone CEFERINO FLANAGAN Unavailable Unavailable [facility] Unavailable Unavailable CEFERINO FLANAGAN Unavailable Unavailable CEFERINO FLANAGAN Unavailable Unavailable CEFERINO FLANAGAN Unavailable Unavailable CEFERINO FLANAGAN Unavailable Unavailable Wei RICHEY, Kwan Harrison Unavailable Paul Lopez Unavailable Perry Olivas MD Primary Care Provider Perry Olivas MD Primary Care Provider Stacey RICHEY, Jose S Unavailable Perry Olivas MD Primary Care Provider Stacey RICHEY, [place] S Unavailable Stacey RICHEY, [place] S Unavailable Cheko RICHEY, Jalil G Unavailable Paul Lopez Unavailable Perry Olivas MD Primary Care Provider Paul Lopez Unavailable Perry Olivas MD Primary Care Provider PERRY OLIVAS Primary Care Unavailable WESTON ZAVALA Attending Unavailable KRISTEN CHAU Admitting Unavailab MIGUEL ÁNGEL Brown Consulting Sharmin vailable Perry Olivas MD Primary Care Provider Stacey RICHEY [place] S Unavailable Stacey RICHEY, Jose S Unavailable Cheko RICHEY, Jalil G Unavailable GREGORIO, PERRY Burgess Primary Care Unavailable PRADIP MCGARRY, SHIREEN Huizar Attending Unavailable OLIVAS, PERRY Burgess Primary Care Unavailable OLIVAS, PERRY Burgess Referring Unavailable OLIVAS, PERRY Burgess Primary Care Unavailable OLIVAS, PERRY Burgess Referring Unavailable SHIREEN ARENAS Attending Unavailable Paul Lopez Unavailable Paul Lopez MD Unavailable GREGORIO, PERRY Burgess Primary Care Unavailable STELLA ROONEY Attending Unavailable OLIVAS, PERRY Burgess Primary Care Unavailable OLIVAS, PERRY Burgess Attending Unavailable OLIVAS, PERRY Burgess Primary Care Unavailable OLIVAS, PERRY Burgess Primary Care Unavailable OLDER, AGATA Referring Unavailable TESTRAKE, ROBERTO Attending Unavailable OLIVAS, PERRY Burgess Primary Care Unavailable TESTRAKE, ROBERTO Referring Unavailable TESTRAKE, ROBERTO Attending Unavailable OLIVAS, PERRY Burgess Primary Care Unavailable OLIVAS, PERRY Burgess Primary Care Unavailable OLDER, AGATA Referring Unavailable OLIVAS, PERRY Burgess Primary Care Unavailable OLIVAS, PERRY Burgess Primary Care Unavailable OLIVAS, PERRY Burgess Primary Care Unavailable OLDER, AGATA Attending Unavailable OLIVAS, PERRY Burgess Primary Care Unavailable OLIVAS, PERRY Burgess Primary Care Unavailable OLIVAS, PERRY Burgess Attending Unavailable OLIVAS, PERRY Burgess Primary Care Unavailable OLIVAS, PERRY Burgess Primary Care Unavailable OLIVAS, PERRY Burgess Attending Unavailable OLIVAS, PERRY Burgess Primary Care Unavailable OLIVAS, PERRY Burgess Referring Unavailable TESTRAKE, ROEBRTO Referring Unavailable TESTRAKE, ROBERTO Attending Unavailable OLIVAS, PERRY Burgess Primary Care Unavailable OLIVAS, PERRY Burgess Primary Care Unavailable OLIVAS, PERRY Burgess Referring Unavailable OLIVAS, PERRY Burgess Primary Care Unavailable OLIVAS, PERRY Burgess Attending Unavailable OLIVAS, PERRY Burgess Primary Care Unavailable OLDER, AGATA Attending Unavailable OLIVAS, PERRY Burgess Primary Care Unavailable OLDER, AGTAA Attending Unavailable OLIVAS, PERRY Burgess Attending Unavailable OLIVAS, PERRY Burgess Primary Care Unavailable TESTRAKE, ROBERTO Referring Unavailable TESTRAKE, ROBERTO Attending Unavailable OLIVAS, PERRY Burgess Primary Care Unavailable OLIVAS, PERRY Burgess Primary Care Unavailable OLIVAS, ECTOR Referring Unavailable OLIVAS, ECTOR Primary Care Unavailable SELF Referring Unavailable OLIVAS, ECTOR Primary Care Unavailable OLIVAS, ECTOR Primary Care Unavailable OLIVAS, ECTOR Attending Unavailable GARRICK, ITALO P Attending Unavailable OLIVAS, ECTOR Primary Care Unavailable OLIVAS, ECTOR Referring Unavailable OLIVAS, ECTOR Primary Care Unavailable OLIVAS, ECTOR Referring Unavailable OLIVAS, ECTOR Primary Care Unavailable OLDER, AGATA Attending Unavailable Allergies Allergy Classification Reported Allergen(s) Allergy Type Date of Onset Reaction(s) Facility (20 sources) atorvastatin; Translations: [ATORVASTATIN CALCIUM] Drug Allergy 5 Intolerance [facility] Repository (20 sources) cetirizine; Translations: [CETIRIZINE HCL] Drug Allergy 5 Intolerance [facility]ository (20 sources) chlorthalidone; Translations: [CHLORTHALIDONE ] Drug Allergy 1 Other: See Comments [facility]ository (20 sources) clarithromycin; Translations: [CLARITHROMYCIN ] Drug Allergy 5 Intolerance [facility] (20 sources) ezetimibe; Translations: [EZETIMIBE] Drug Allergy 0 Intolerance, Diarrhea [facility]ository (20 sources) ezetimibe / simvastatin; Translations: [EZETIMIBE-SIMV ASTATIN] Drug Allergy 5 Intolerance [facility] (20 sources) irbesartan; Translations: [IRBESARTAN] Drug Allergy 0 Intolerance [facility] (20 sources) metoprolol; Translations: [METOPROLOL] Drug Allergy 1 Intolerance [facility] (20 sources) olmesartan; Translations: [OLMESARTAN MEDOXOMIL] Drug Allergy 0 Intolerance [facility] (20 sources) pravastatin; Translations: [PRAVASTATIN SODIUM] Drug Allergy 5 Intolerance [facility] (20 sources) quinapril; Translations: [QUINAPRIL HCL] Drug Allergy 5 Swelling [facility] (20 sources) rosuvastatin; Translations: [ROSUVASTATIN CALCIUM] Drug Allergy 5 Intolerance [facility] (20 sources) valsartan; Translations: [VALSARTAN] Drug Allergy 5 Hives [facility] (20 sources) OMEGA-3 ACID ETHYL ESTERS; Translations: [OMEGA-3 ACID ETHYL ESTERS] Propensity to adverse reactions (disorder) 2 Other: See Comments [facility] (20 sources) RED YEAST RICE; Translations: [RED YEAST RICE] Propensity to adverse reactions (disorder) 7 Intolerance [facility] (3 sources) Hmg-Coa Reductase Inhibitors (Statins) drug allergy 8 Angioedema (swelling) [facility] Work Phone: (2 sources) quinapril Drug Allergy 8 Angioedema (swelling) [facility] Work Phone: Medications Current Medications Medication Drug Class(es) Dates Sig (Normalized) Sig (Original) amoxicillin 875 mg / clavulanate 125 mg oral tablet (1 source) Penicillin-class Antibacterial Start: 09-12-2022 End: 09-19-2022 take 1 tablet by mouth twice daily amoxicillin-clav ulanic acid (AUGMENTIN) 875-125 mg per tablet Take 1 tablet by mouth twice daily for 7 days. 14 tablet 0 09/12/2022 09/19/2022 Active Completed/Discontinued Medications Medication Drug Class(es) Dates Sig (Normalized) Sig (Original) acetaminophen 325 mg oral tablet (3 sources) Start: 03-13-2022 End: 03-15-2022 take 1 tablet by mouth every four hours as needed for pain and headache 650 mg, Oral, Every 4 hours PRN, mild pain, fever 100.4 F or greater, headaches, Starting on Sat03/13/22 at 2006 Problems Active Problems Problem Classification Problem Date Documented Da te Episodic/Chronic Administrative/social admission (2 sources) Other reduced mobility; Translations: [Other specified conditions influencing health status] 02-25-2023 Episodic Cardiac dysrhythmias (20 sources) Ventricular tachycardia; Translations: [Ventricular tachycardia] Onset: 8 07-24-2017 Chronic Chronic kidney disease (6 sources) Chronic kidney disease; Translations: [Chronic kidney disease, unspecified] Onset: 2 Chronic Chronic ulcer of skin (20 sources) Ulcer of toe; Translations: [Non-pressure chronic ulcer of other part of left foot limited to breakdown of skin] Onset: 1 Chronic Coagulation and hemorrhagic disorders (4 sources) Thrombocytopenic disorder; Translations: [Thrombocytopenia, unspecified] Onset: 9 01-10-2019 Chronic Congestive heart failure; nonhypertensive (6 sources) Acute on chronic combined systolic and diastolic heart failure; Translations: [Acute on chronic combined systolic (congestive) and diastolic (congestive) heart failure] Onset: 9 Resolved: 9 Chronic Coronary atherosclerosis and other heart disease (20 sources) Atherosclerotic heart disease of [place] coronary artery without angina pectoris; Translations: [Coronary arteriosclerosis] Onset: 0 03-20-2010 Chronic Diabetes mellitus with complications (20 sources) Type 2 diabetes mellitus; Translations: [Type 2 diabetes mellitus with diabetic chronic kidney disease] Onset: 9 10-29-2018 Chronic Diabetes mellitus without complication (1 source) Diabetes mellitus without complication; Translations: [Controlled type 2 diabetes mellitus with stage 3 chronic kidney disease, without long-term current use of insulin (HCC)] Onset: 9 Disorders of lipid metabolism (20 sources) Mixed hyperlipidemia; Translations: [Mixed hyperlipidemia] Onset: 5 Resolved: 9 04-12-2015 Chronic E Codes: Fall (2 sources) Fall; Translations: [Unspecified fall, subsequent encounter] Episodic Essential hypertension (20 sources) Essential hypertension; Translations: [Essential (primary) hypertension] Onset: 0 04-12-2015 Chronic Heart valve disorders (20 sources) Nonrheumatic aortic (valve) stenosis; Translations: [Aortic valve disorders] Onset: 2 Chronic Mood disorders (20 sources) Mood disorder; Translations: [Unspecified mood [affective] disorder] Onset: 0 11-02-2019 Chronic Open wounds of extremities (2 sources) Open wound of lower limb; Translations: [Unspecified open wound, left lower leg, initial encounter] 02-03-2023 Episodic Open wounds of head; neck; and trunk (1 source) Open wound of buttock; Translations: [Unspecified open wound of left buttock, initial encounter] 05-21-2023 Episodic Osteoarthritis (20 sources) Degenerative joint disease involving multiple joints; Translations: [Polyosteoarthritis, unspecified] Onset: 6 08-08-2015 Chronic Other acquired deformities (1 source) Scoliosis of lumbar spine; Translations: [Scoliosis, unspecified] Onset: 2 09-08-2021 Chronic Other acquired deformities (1 source) Lumbar spondylolisthesis; Translations: [Spondylolisthesis, lumbar region] Onset: 2 09-08-2021 Episodic Other connective tissue disease (1 source) Pain of toe of left foot; Translations: [Pain in left toe(s)] Episodic Other connective tissue disease (1 source) Pain of toe of right foot; Translations: [Pain in right toe(s)] Episodic Other diseases of veins and lymphatics (1 source) Vascular insufficiency; Translations: [Venous insufficiency (chronic) (peripheral)] Episodic Other ear and sense organ disorders (20 sources) Bilateral hearing loss; Translations: [Unspecified hearing loss, bilateral] Onset: 7 10-24-2016 Chronic Other eye disorders (1 source) Disorder of eye; Translations: [Unspecified disorder of eye and adnexa] Episodic Other gastrointestinal disorders (2 sources) Diarrhea; Translations: [Diarrhea, unspecified] Episodic Other hematologic conditions (1 source) Raised cardiac enzyme or marker; Translations: [Other specified abnormalities of plasma proteins] Episodic Other injuries and conditions due to external causes (1 source) Delayed healing of wound; Translations: [Other injury of unspecified body region, subsequent encounter] 02-12-2023 Episodic Other injuries and conditions due to external causes (1 source) Blister; Translations: [Other injury of unspecified body region, initial encounter] 04-14-2023 Episodic Other lower respiratory disease (1 source) Dyspnea on exertion; Translations: [Dyspnea, unspecified] Episodic Other lower respiratory disease (3 sources) Cough; Translations: [Acute cough] Episodic Other lower respiratory disease (1 source) H/O: pneumonia; Translations: [Personal history of pneumonia (recurrent)] Episodic Other nervous system disorders (1 source) Ataxia; Translations: [Ataxia, unspecified] Onset: 2 07-21-2021 Episodic Other nutritional; endocrine; and metabolic disorders (20 sources) Obese class I; Translations: [Obesity, unspecified] Onset: 9 10-29-2018 Chronic Other nutritional; endocrine; and metabolic disorders (1 source) Obesity, unspecified; Translations: [Obesity, Class I, BMI 30-34.9] Onset: 9 Chronic Other upper respiratory infections (1 source) Acute upper respiratory infection; Translations: [Acute upper respiratory infection, unspecified] Episodic Peripheral and visceral atherosclerosis (6 sources) Peripheral vascular disease, unspecified; Translations: [Peripheral vascular disease, unspecified] Chronic Residual codes; unclassified (1 source) Edema; Translations: [Edema, unspecified] Episodic Skin and subcutaneous tissue infections (4 sources) Cellulitis of skin; Translations: [Cellulitis, unspecified] 02-03-2023 Episodic Spondylosis; intervertebral disc disorders; other back problems (1 source) Degeneration of lumbar intervertebral disc; Translations: [Other intervertebral disc degeneration, lumbar region] Onset: 2 07-21-2021 Chronic Sprains and strains (1 source) Low back strain; Translations: [Strain of muscle, fascia and tendon of lower back, subsequent encounter] 02-21-2023 Episodic Unclassified (1 source) Unknown / UNK(Unknown) Onset: 0 Unclassified (1 source) Acute cough; Translations: [Acute cough] Onset: 3 Past or Other Problems Problem Classification Problem Date Documented Da te Episodic/Chronic Abdominal pain (3 sources) Flank pain; Translations: [Unspecified abdominal pain] Onset: 03-13-2022 Episodic Acute and unspecified renal failure (2 sources) Acute renal failure syndrome; Translations: [Acute kidney failure, unspecified] Onset: 01-10-2019 Resolved: 01-10-2019 01-10-2019 Episodic Hemorrhoids (3 sources) Hematoma of perianal region; Translations: [Perianal venous thrombosis] Onset: 01-29-2023 01-28-2023 Episodic Mycoses (20 sources) Onychomycosis due to dermatophyte ; Translations: [Tinea unguium] Onset: 05-06-2019 05-06-2019 Episodic Other gastrointestinal disorders (1 source) Diarrhea, unspecified; Translations: [Diarrhea, unspecified type] Onset: 09-18-2022 Episodic Other hematologic conditions (2 sources) Other specified abnormalities of plasma proteins; Translations: [Other specified abnormalities of plasma proteins] Onset: 03-13-2022 Episodic Other infections; including parasitic (20 sources) Personal history of other infectious and parasitic diseases; Translations: [History of COVID-19] Onset: 05-21-2022 05-21-2022 Episodic Other lower respiratory disease (2 sources) Dyspnea, unspecified; Translations: [Dyspnea, unspecified] Onset: 03-13-2022 Episodic Other lower respiratory disease (1 source) Personal history of pneumonia (recurrent); Translations: [History of pneumonia] Onset: 12-17-2022 Episodic Other lower respiratory disease (1 source) Shortness of breath; Translations: [Shortness of breath] Onset: 09-11-2022 Episodic Other nervous system disorders (20 sources) Abnormal gait; Translations: [Unspecified abnormalities of gait and mobility] Onset: 12-17-2019 12-17-2019 Episodic Other screening for suspected conditions (not mental disorders or infectious disease) (2 sources) Cardiac finding; Translations: [Abnormal findings on diagnostic imaging of heart and coronary circulation] Onset: 07-02-2017 07-04-2017 Episodic Pneumonia (except that caused by tuberculosis or sexually transmitted disease) (2 sources) Infective pneumonia; Translations: [Pneumonia, unspecified organism] Onset: 09-18-2022 Episodic Residual codes; unclassified (2 sources) Other specified health status; Translations: [Other drug allergy] Onset: 06-10-2019 06-10-2019 Episodic Residual codes; unclassified (2 sources) Edema, unspecified; Translations: [Edema, unspecified] Onset: 03-13-2022 Episodic Spondylosis; intervertebral disc disorders; other back problems (20 sources) Stenosis of lumbar vertebral foramen; Translations: [Spinal stenosis, lumbar region without neurogenic claudication] Onset: 05-01-2017 09-08-2021 Episodic Syncope (7 sources) Near syncope; Translations: [Syncope and collapse] Onset: 07-02-2017 Episodic Unclassified (1 source) Problem Results Test Name Value Interpretation Reference Range Facil ity Vital Signs Date Time Vital Sign Value Performing Clinician Facility 05-21-2023 19:19-0500 Body temperature 98.71 [degF] Elda Athy PA-C Work Phone: [facility] 05-21-2023 19:19-0500 Diastolic blood pressure 68 mm[Hg] Elda Athy PA-C Work Phone: [facility] 05-21-2023 19:19-0500 Heart rate 78 /min Elda Athy PA-C Work Phone: [facility] 05-21-2023 19:19-0500 Respiratory rate 16 /min Elda Athy PA-C Work Phone: [facility] 05-21-2023 19:19-0500 SaO2% (BldA) [Mass fraction] 98 % Elda Athy PA-C Work Phone: [facility] 05-21-2023 19:19-0500 Systolic blood pressure 122 mm[Hg] Elda Athy PA-C Work Phone: [facility] 05-03-2023 13:40-0400 Body weight 90.36 kg Perry Olivas MD Work Phone: [facility] 05-03-2023 13:40-0400 Diastolic blood pressure 58 mm[Hg] Perry Olivas MD Work Phone: [facility] 05-03-2023 13:40-0400 Heart rate 70 /min Perry Olivas MD Work Phone: [facility] 05-03-2023 13:40-0400 Respiratory rate 16 /min Perry Olivas MD Work Phone: [facility] 05-03-2023 13:40-0400 SaO2% (BldA) [Mass fraction] 100 % Perry Olivas MD Work Phone: [facility] 05-03-2023 13:40-0400 Systolic blood pressure 118 mm[Hg] Perry Olivas MD Work Phone: [facility] 04-14-2023 11:46-0400 Body temperature 97.81 [degF] Otoniel Grady COMMUNICATION SKILLS INSTRUCTOR.SE[employer]IC [employer]ANK INSTALLER Work Phone: [facility] 04-14-2023 11:46-0400 Body weight 92.99 kg Otoniel Grady COMMUNICATION SKILLS INSTRUCTOR.[employer] INSTALLER Work Phone: [facility] 04-14-2023 11:46-0400 Diastolic blood pressure 84 mm[Hg] Otoniel Grady COMMUNICATION SKILLS INSTRUCTOR.[employer] INSTALLER Work Phone: [facility] 04-14-2023 11:46-0400 Heart rate 70 /min Otoniel Grady COMMUNICATION SKILLS INSTRUCTOR.SE[employer] INSTALLER Work Phone: [facility] 04-14-2023 11:46-0400 Respiratory rate 22 /min Otoniel Grady COMMUNICATION SKILLS INSTRUCTOR.SE[employer] INSTALLER Work Phone: [facility] 04-14-2023 11:46-0400 SaO2% (BldA) [Mass fraction] 97 % Otoniel Grady COMMUNICATION SKILLS INSTRUCTOR.SE[employer] INSTALLER Work Phone: [facility] 04-14-2023 11:46-0400 Systolic blood pressure 131 mm[Hg] Otoniel Grady COMMUNICATION SKILLS INSTRUCTOR.SE[employer] T[employer] INSTALLER Work Phone: [facility] 03-22-2023 11:07-0400 Body temperature 97.11 [degF] Paul Pendlebury COMMUNICATION SKILLS INSTRUCTOR.SE[employer] INSTALLER Work Phone: [facility] 03-22-2023 11:07-0400 Diastolic blood pressure 75 mm[Hg] Paul Pendlebury COMMUNICATION SKILLS INSTRUCTOR.SE[employer] INSTALLER Work Phone: [facility] 03-22-2023 11:07-0400 Heart rate 70 /min Paul Pendlebury COMMUNICATION SKILLS INSTRUCTOR.[employer] INSTALLER Work Phone: [facility] 03-22-2023 11:07-0400 Respiratory rate 20 /min Paul Pendlebury COMMUNICATION SKILLS INSTRUCTOR.SE[employer] INSTALLER Work Phone: [facility] 03-22-2023 11:07-0400 SaO2% (BldA) [Mass fraction] 98 % Paul Pendlebury COMMUNICATION SKILLS INSTRUCTOR.SE[employer] INSTALLER Work Phone: [facility] 03-22-2023 11:07-0400 Systolic blood pressure 112 mm[Hg] Paul Storm COMMUNICATION SKILLS INSTRUCTOR.SE[employer] INSTALLER Work Phone: [facility] 02-12-2023 11:21-0400 Body temperature 97.39 [degF] Agata Older COMMUNICATION SKILLS INSTRUCTOR.SE[employer] INSTALLER Work Phone: [facility] 02-12-2023 11:21-0400 Diastolic blood pressure 74 mm[Hg] Agata Older COMMUNICATION SKILLS INSTRUCTOR.[employer] INSTALLER Work Phone: [facility] 02-12-2023 11:21-0400 Heart rate 70 /min Aagta Older COMMUNICATION SKILLS INSTRUCTOR.SE[employer] INSTALLER Work Phone: [facility] 02-12-2023 11:21-0400 Respiratory rate 18 /min Agata Older COMMUNICATION SKILLS INSTRUCTOR.SE[employer] INSTALLER Work Phone: [facility] 02-12-2023 11:21-0400 SaO2% (BldA) [Mass fraction] 96 % Agata Older COMMUNICATION SKILLS INSTRUCTOR.SE[employer] INSTALLER Work Phone: [facility] 02-12-2023 11:21-0400 Systolic blood pressure 110 mm[Hg] Agata Older COMMUNICATION SKILLS INSTRUCTOR.SE[employer] INSTALLER Work Phone: [facility] 02-06-2023 11:58-0400 Body temperature 97.81 [degF] Agata Older COMMUNICATION SKILLS INSTRUCTOR.[employer] INSTALLER Work Phone: [facility] 02-06-2023 11:58-0400 Diastolic blood pressure 72 mm[Hg] Agata Older COMMUNICATION SKILLS INSTRUCTOR.[employer] INSTALLER Work Phone: [facility] 02-06-2023 11:58-0400 Heart rate 71 /min Agata Older COMMUNICATION SKILLS INSTRUCTOR.[employer] INSTALLER Work Phone: [facility] 02-06-2023 11:58-0400 Respiratory rate 20 /min Agata Older COMMUNICATION SKILLS INSTRUCTOR.SE[employer] INSTALLER Work Phone: [facility] 02-06-2023 11:58-0400 SaO2% (BldA) [Mass fraction] 97 % Agata Older COMMUNICATION SKILLS INSTRUCTOR.SE[employer] INSTALLER Work Phone: [facility] 02-06-2023 11:58-0400 Systolic blood pressure 114 mm[Hg] Agata Older COMMUNICATION SKILLS INSTRUCTOR.[employer] INSTALLER Work Phone: [facility] 02-03-2023 14:27-0400 Body temperature 97.9 [degF] Elda Athy PA-C Work Phone: [facility] 02-03-2023 14:27-0400 Body weight 93.26 kg Elda Athy PA-C Work Phone: [facility] 02-03-2023 14:27-0400 Diastolic blood pressure 78 mm[Hg] Elda Athy PA-C Work Phone: [facility] 02-03-2023 14:27-0400 Heart rate 70 /min Elda Athy PA-C Work Phone: [facility] 02-03-2023 14:27-0400 Respiratory rate 21 /min Elda Athy PA-C Work Phone: [facility] 02-03-2023 14:27-0400 SaO2% (BldA) [Mass fraction] 99 % Elda Athy PA-C Work Phone: [facility] 02-03-2023 14:27-0400 Systolic blood pressure 112 mm[Hg] Elda Athy PA-C Work Phone: [facility] 01-29-2023 13:12-0400 Body temperature 97.5 [degF] Italo Eason MD Work Phone: [facility] 01-29-2023 13:12-0400 Diastolic blood pressure 62 mm[Hg] Italo Eason MD Work Phone: [facility] 01-29-2023 13:12-0400 Heart rate 70 /min Italo Eason MD Work Phone: [facility] 01-29-2023 13:12-0400 SaO2% (BldA) [Mass fraction] 97 % Italo Eason MD Work Phone: [facility] 01-29-2023 13:12-0400 Systolic blood pressure 110 mm[Hg] Italo Eason MD Work Phone: [facility] 01-28-2023 13:22-0400 Body weight 93.44 kg Perry Olivas MD Work Phone: [facility] 01-28-2023 13:22-0400 Diastolic blood pressure 66 mm[Hg] Perry Olivas MD Work Phone: [facility] 01-28-2023 13:22-0400 Heart rate 68 /min Perry Olivas MD Work Phone: [facility] 01-28-2023 13:22-0400 Respiratory rate 20 /min Perry Olivas MD Work Phone: [facility] 01-28-2023 13:22-0400 Systolic blood pressure 116 mm[Hg] Perry Olivas MD Work Phone: [facility] 12-28-2022 19:09-0400 Body temperature 98.4 [degF] Lashell Jonatan COMMUNICATION SKILLS INSTRUCTOR.SE[employer] INSTALLER Work Phone: [facility] 12-28-2022 19:09-0400 Diastolic blood pressure 68 mm[Hg] Lashell Jonatan COMMUNICATION SKILLS INSTRUCTOR.[employer] INSTALLER Work Phone: [facility] 12-28-2022 19:09-0400 Heart rate 70 /min Lashell Jonatan COMMUNICATION SKILLS INSTRUCTOR.[employer] INSTALLER Work Phone: [facility] 12-28-2022 19:09-0400 Respiratory rate 18 /min Lashell Jonatan COMMUNICATION SKILLS INSTRUCTOR.SE[employer] INSTALLER Work Phone: [facility] 12-28-2022 19:09-0400 SaO2% (BldA) [Mass fraction] 96 % Lashell Jonatan COMMUNICATION SKILLS INSTRUCTOR.SE[employer] INSTALLER Work Phone: [facility] 12-28-2022 19:09-0400 Systolic blood pressure 122 mm[Hg] Lashell Jonatan COMMUNICATION SKILLS INSTRUCTOR.[employer] INSTALLER Work Phone: [facility] 12-17-2022 15:34-0400 Body weight 90.72 kg Perry Olivas MD Work Phone: [facility] 12-17-2022 15:34-0400 Diastolic blood pressure 66 mm[Hg] Perry Olivas MD Work Phone: [facility] 12-17-2022 15:34-0400 Heart rate 64 /min Perry Olivas MD Work Phone: [facility] 12-17-2022 15:34-0400 Respiratory rate 18 /min Perry Olivas MD Work Phone: [facility] 12-17-2022 15:34-0400 Systolic blood pressure 118 mm[Hg] Perry Olivas MD Work Phone: [facility] 09-25-2022 10:37-0400 Body mass index (BMI) [Ratio] 29.39 kg/m2 [facility] 09-25-2022 10:37-0400 Body weight 90.27 kg [facility] 09-25-2022 10:37-0400 Diastolic blood pressure 68 mm[Hg] [facility] 09-25-2022 10:37-0400 Systolic blood pressure 118 mm[Hg] [facility] 09-18-2022 10:51-0400 Body weight 87.54 kg Agata Older COMMUNICATION SKILLS INSTRUCTOR.SE[employer]IC [employer]ANK INSTALLER Work Phone: [facility] 09-18-2022 10:51-0400 Diastolic blood pressure 77 mm[Hg] Agata Older COMMUNICATION SKILLS INSTRUCTOR.SE[employer] INSTALLER Work Phone: [facility] 09-18-2022 10:51-0400 Heart rate 70 /min Agata Older COMMUNICATION SKILLS INSTRUCTOR.[employer] INSTALLER Work Phone: [facility] 09-18-2022 10:51-0400 Respiratory rate 22 /min Agata Older COMMUNICATION SKILLS INSTRUCTOR.SE[employer]IC TANK INSTALLER Work Phone: [facility] 09-18-2022 10:51-0400 SaO2% (BldA) [Mass fraction] 95 % Agata Older COMMUNICATION SKILLS INSTRUCTOR.SE[employer]IC TANK INSTALLER Work Phone: [facility] 09-18-2022 10:51-0400 Systolic blood pressure 120 mm[Hg] Agata Older COMMUNICATION SKILLS INSTRUCTOR.SE[employer] TANK INSTALLER Work Phone: [facility] 09-07-2022 09:09-0500 Body temperature 97.81 [degF] Krislyn Aberegg PA Work Phone: [facility] 09-07-2022 09:09-0500 Body weight 94.53 kg Krislyn Aberegg PA Work Phone: [facility] 09-07-2022 09:09-0500 Diastolic blood pressure 68 mm[Hg] Krislyn Aberegg PA Work Phone: [facility] 09-07-2022 09:09-0500 Heart rate 67 /min Krislyn Aberegg PA Work Phone: [facility] 09-07-2022 09:09-0500 Respiratory rate 18 /min Krislyn Aberegg PA Work Phone: [facility] 09-07-2022 09:09-0500 SaO2% (BldA) [Mass fraction] 96 % Krislyn Aberegg PA Work Phone: [facility] 09-07-2022 09:09-0500 Systolic blood pressure 122 mm[Hg] Krislyn Aberegg PA Work Phone: [facility] 05-20-2022 14:28-0500 Body temperature 98.2 [degF] Agata Older COMMUNICATION SKILLS INSTRUCTOR.SE[employer]IC T[employer] INSTALLER Work Phone: [facility] 05-20-2022 14:28-0500 Body weight 92.35 kg Agata Older COMMUNICATION SKILLS INSTRUCTOR.SE[employer] INSTALLER Work Phone: [facility] 05-20-2022 14:28-0500 Diastolic blood pressure 78 mm[Hg] Agata Older COMMUNICATION SKILLS INSTRUCTOR.SE[employer] INSTALLER Work Phone: [facility] 05-20-2022 14:28-0500 Heart rate 69 /min Agata Older COMMUNICATION SKILLS INSTRUCTOR.SE[employer]ANK INSTALLER Work Phone: [facility] 05-20-2022 14:28-0500 Respiratory rate 18 /min Agata Older COMMUNICATION SKILLS INSTRUCTOR.SE[employer]IC TANK INSTALLER Work Phone: [facility] 05-20-2022 14:28-0500 SaO2% (BldA) [Mass fraction] 96 % Agata Older COMMUNICATION SKILLS INSTRUCTOR.SE[employer]IC TANK INSTALLER Work Phone: [facility] 05-20-2022 14:28-0500 Systolic blood pressure 118 mm[Hg] Agata Older COMMUNICATION SKILLS INSTRUCTOR.SE[employer]IC TANK INSTALLER Work Phone: [facility] 04-20-2022 10:18-0400 Body weight 90.72 kg Perry Olivas MD Work Phone: [facility] 04-20-2022 10:18-0400 Diastolic blood pressure 62 mm[Hg] Perry Olivas MD Work Phone: [facility] 04-20-2022 10:18-0400 Heart rate 71 /min Perry Olivas MD Work Phone: [facility] 04-20-2022 10:18-0400 SaO2% (BldA) [Mass fraction] 97 % Perry Olivas MD Work Phone: [facility] 04-20-2022 10:18-0400 Systolic blood pressure 108 mm[Hg] Perry Olivas MD Work Phone: [facility] 03-28-2022 09:32-0400 Body height 175.[address] [facility] 03-28-2022 09:32-0400 Body mass index (BMI) [Ratio] 29.71 kg/m2 Shireen Laici [facility] 03-28-2022 09:32-0400 Body weight 91.[address] [facility] 03-28-2022 09:32-0400 Diastolic blood pressure 66 mm[Hg] Shireen Laici [facility] 03-28-2022 09:32-0400 Heart rate 72 /min Shireen Mcgarry [facility] 03-28-2022 09:32-0400 SaO2% (BldA) [Mass fraction] 96 % Shireen Mcgarry [facility] 03-28-2022 09:32-0400 Systolic blood pressure 98 mm[Hg] Shireen Mcgarry [facility] 03-15-2022 12:06-0400 Respiratory rate 16 /min Norbert Carpio MD Work Phone: [facility] 03-15-2022 10:00-0400 Heart rate 70 /min Norbert Carpio MD Work Phone: [facility] 03-15-2022 07:38-0400 Body temperature 97.39 [degF] Norbert Carpio MD Work Phone: [facility] 03-15-2022 07:38-0400 Diastolic blood pressure 82 mm[Hg] Norbert Carpio MD Work Phone: [facility] 03-15-2022 07:38-0400 SaO2% (BldA) [Mass fraction] 94 % Norbert Carpio MD Work Phone: [facility] 03-15-2022 07:38-0400 Systolic blood pressure 134 mm[Hg] Norbert Carpio MD Work Phone: [facility] 03-13-2022 19:50-0400 Body height 175.3 cm Norbert Carpio MD Work Phone: [facility] 03-13-2022 19:50-0400 Body mass index (BMI) [Ratio] 29.07 kg/m2 Norbert Carpio MD Work Phone: [facility] 03-13-2022 19:50-0400 Body weight 89.3 kg Norbert Carpio MD Work Phone: [facility] 11-21-2021 09:55-0400 Body height 175.3 cm Radha Velazquez DO Work Phone: [facility] 11-21-2021 09:55-0400 Body weight 88 kg Radha Velazquez DO Work Phone: [facility] 11-21-2021 09:55-0400 Diastolic blood pressure 78 mm[Hg] Radha Velazquez DO Work Phone: [facility] 11-21-2021 09:55-0400 Heart rate 71 /min Radha Velazquez DO Work Phone: [facility] 11-21-2021 09:55-0400 SaO2% (BldA) [Mass fraction] 98 % Radha Velazquez DO Work Phone: [facility] 11-21-2021 09:55-0400 Systolic blood pressure 101 mm[Hg] Radha Velazquez DO Work Phone: [facility] 11-09-2021 09:22-0400 Body temperature 98.01 [degF] Perry Olivas MD Work Phone: [facility] 11-09-2021 09:22-0400 Body weight 85.28 kg Perry Olivas MD Work Phone: [facility] 11-09-2021 09:22-0400 Diastolic blood pressure 68 mm[Hg] Perry Olivas MD Work Phone: [facility] 11-09-2021 09:22-0400 Heart rate 64 /min Perry Olivas MD Work Phone: [facility] 11-09-2021 09:22-0400 Respiratory rate 18 /min Perry Olivas MD Work Phone: [facility] 11-09-2021 09:22-0400 Systolic blood pressure 112 mm[Hg] Perry Olivas MD Work Phone: [facility] NEGATED: Highlighted [id number] 10:39-0500 Body height [facility]: NEGATED: Highlighted [id number] 10:39-0500 Body height [facility].26 [facility] Work [facility]: NEGATED: Highlighted [id number] 10:39-0500 Body mass index (BMI) [Ratio] 28.9 kg/m2 Erika Kyle AT [facility] Work Phone: NEGATED: Highlighted [id number] 10:39-0500 Body weight 89 kg Erika Kyle AT [facility] Work Phone: NEGATED: Highlighted [id number] 10:39-0500 Body weight 88.45 kg Erika Kyle AT [facility] Work Phone: Encounters Encounter Date Encounter Type Care Provider Facility Start: 07-18-2023 End: 07-19-2023 ambulatory PERRY OLIVAS Facility:[facility] Start: 06-26-2023 End: 06-26-2023 ambulatory PERRY OLIVAS Facility:[facility] Start: 06-20-2023 End: 06-21-2023 ambulatory PERRY OLIVAS Facility:[facility] Start: 05-28-2023 End: 05-28-2023 ambulatory ROBERTO VIZCAINO Facility:[facility] Start: 05-21-2023 End: 05-21-2023 ambulatory PERRY OLIVAS Facility:[facility] Start: 05-21-2023 End: 05-21-2023 Patient encounter procedure Elda Glass PA-C Work Phone: [facility] Procedures Date Procedure Procedure Detail Performing Clinician Start: 03-22-2023 Cul bact xcpt urine blood/stool aerobic isol Paul Storm COMMUNICATION SKILLS INSTRUCTOR.SE[employer]IC TANK INSTALLER Work Phone: Start: 03-14-2022 TTE w Nuha hancock MD Work Phone: Start: 03-14-2022 Dup-scan xtr veins c omplete bilateral study Kristen Chau MD Work Phone: Start: 03-14-2022 Comprehensive metabo lic panel Kristen Chau MD Work Phone: Start: 03-14-2022 Electrocardiogram [facility] Work Phone: Start: 03-13-2022 Us retroperitoneal r eal time w/image limited Kristen Chau MD Work Phone: Start: 03-13-2022 Hemoglobin glycosylated a1c Kristen Chau MD Work Phone: Start: 03-13-2022 SARS-CoV-2 (COVID-19 ) RNA [Presence] in Respiratory specimen by JOVANNA with probe detection Norbert Carpio MD Work Phone: Start: 03-13-2022 Urnls dip stick/tabl et reagent auto microscopy Norbert Carpio MD Work Phone: Start: 03-13-2022 CT LUMBAR SPINE RECONSTRUCTED Norbert Carpio MD Work Phone: Start: 03-13-2022 CT THORACIC SPINE RECONSTRUCTED Norbert Carpio MD Work Phone: Start: 03-13-2022 Ct thorax w/o contra st material Norbert Carpio MD Work Phone: Start: 03-13-2022 Radiologic exam ches t single view Azeb Robertsgue Green PA-C Work Phone: Start: 03-13-2022 Comprehensive metabo lic panel Azeb Robertsgue Green PA-C Work Phone: Start: 03-13-2022 REZA TOP Norbert Carpio MD Work Phone: Start: 03-13-2022 Hepatic function panel Norbert Carpio MD Work Phone: Start: 03-13-2022 LAVENDER TOP Norbert Carpio MD Work Phone: Start: 03-13-2022 LIGHT BLUE TOP Norbert Carpio MD Work Phone: Start: 03-13-2022 LIGHT GREEN TOP Norbert Carpio MD Work Phone: Start: 03-13-2022 MINT GREEN TOP Norbert Carpio MD Work Phone: Start: 03-13-2022 PINK TOP Norbert Carpio MD Work Phone: Start: 03-13-2022 RAINBOW DRAW Norbert Carpio MD Work Phone: Start: 03-13-2022 Ecg routine ecg w/le ast 12 lds trcg only w/o i&r Azeb Dashawn Garcia PA-C Work Phone: Start: 09-08-2021 End: 09-08-2021 BP scrn no perf at interval Kwan moore MD Work Phone: Start: 09-08-2021 End: 09-08-2021 Calc BMI abv up salazar f/u Kwan calvo MD Work Phone: Start: 09-08-2021 End: 09-08-2021 Current tobacco non-user cad cap copd pv dm Kwan Carvajal MD Work Phone: Start: 09-08-2021 End: 09-08-2021 Docrev cur meds by elig clin Kwan Carvajal MD Work Phone: Start: 09-08-2021 End: 09-08-2021 Falls plan of care documented Kwan Carvajal MD Work Phone: Start: 09-08-2021 End: 09-08-2021 Falls risk assessment documented Kwan Carvajal MD Work Phone: Start: 09-08-2021 End: 09-08-2021 No doc of pain Kwan Carvajal MD Work Phone: Start: 09-08-2021 End: 09-08-2021 Patient encounter procedure Kwan moore MD Work Phone: Start: 09-08-2021 End: 09-08-2021 Pt falls assess docd 2/> falls/fall w/injury/yr Kwan Carvajal MD Work Phone: NEGATED: Highlighted rowStart: 09-08-2021 End: 09-08-2021 Documentation of current medications Erika Kyle AT Plan of Treatment Date Care Activity Detail Author Start: 04-13-2032 Tetanus vaccination TETANUS [facility] Start: 04-13-2032 Urine microalbumin profile [facility] Start: 06-30-2027 Urine microalbumin profile DTAP,TDAP,TD (4 - Td or Tdap) [facility] Start: 01-29-2024 COVID-19 VACCINE (4 - Moderna series) COVID-19 VACCINE (4 - Moderna series) [facility] Immunizations Immunization Date Immunization Notes Care Provider Lisa townsend 05-17-2022 influenza, high dose seasonal, preservative-free Perry Olivas MD Work Phone: [facility] Work Phone: 05-17-2022 influenza virus vacc ine, unspecified formulation Paul Storm COMMUNICATION SKILLS INSTRUCTOR.SE[employer]IC TANK INSTALLER Work Phone: [facility] 04-13-2022 tetanus toxoid, redu tati diphtheria toxoid, and acellular pertussis vaccine, adsorbed Perry Olivas MD Work Phone: [facility] Work Phone: 02-23-2022 pneumococcal polysaccharide vaccine, 23 valent Perry Olivas MD Work Phone: [facility] Work Phone: 02-23-2022 tetanus toxoid, redu tati diphtheria toxoid, and acellular pertussis vaccine, adsorbed Perry Olivas MD Work Phone: [facility] Work Phone: 03-24-2021 influenza, high-dose , quadrivalent vaccine (FLUZONE HIGH DOSE QUADRIVALENT) Roberto Vizcaino Work Phone: [facility] 03-24-2021 influenza virus vacc ine, unspecified formulation Shireen Mcgarry [facility] 08-26-2020 COVID-19 vaccine, Gabo Bradford, 100 mcg/0.5 [address] [facility] 07-29-2020 COVID-19 vaccine, Gabo Bradford, 100 mcg/0.5 mL [address]ire[address] Pradip Venci [facility] 03-22-2020 influenza, high dose seasonal, preservative-free Roberto Testrake Work Phone: [facility] Work Phone: 04-10-2019 influenza, high dose seasonal, preservative-free Roberto Testrake Work Phone: [facility] Work Phone: 07-05-2018 influenza, high dose seasonal, preservative-free Roberto Testrake Work Phone: [facility] Work Phone: 04-22-2018 zoster vaccine recombinant Roberto Testrake Work Phone: [facility] Work Phone: 10-28-2017 zoster vaccine recombinant Roberto [employer] Work Phone: [facility] Work Phone: 06-30-2017 tetanus toxoid, redu tati diphtheria toxoid, and acellular pertussis vaccine, adsorbed RobertoNomesia Work Phone: [facility] Work Phone: 04-01-2017 influenza, high dose seasonal, preservative-free Roberto Testrake Work Phone: [facility] 10-24-2016 pneumococcal polysaccharide vaccine, 23 valent [facility] Work Phone: [facility] 07-07-2014 pneumococcal conjuga te vaccine, 13 valent [facility] Work Phone: [facility] 05-15-2014 influenza, seasonal, injectable [facility] Work Phone: [facility] 04-07-2013 influenza virus vacc ine, unspecified formulation [facility] Work Phone: [facility] 04-23-2012 influenza virus vacc ine, unspecified formulation [facility] Work Phone: [facility] 03-28-2011 influenza virus vacc ine, unspecified formulation [facility] Work Phone: [facility] 12-28-2010 zoster vaccine, live [facility] Work Phone: [facility] 04-10-2010 influenza virus vacc ine, unspecified formulation [facility] Work Phone: [facility] 03-20-2010 tetanus and diphther ia toxoids, adsorbed, preservative free, for adult use (2 Lf of tetanus toxoid and 2 Lf of diphtheria toxoid) [facility] Work Phone: [facility] 04-14-2009 influenza virus vacc ine, unspecified formulation [facility] Work Phone: [facility] 06-09-2008 influenza virus vacc ine, unspecified formulation [facility] Work Phone: [facility] Work Phone: 04-28-2007 influenza virus vacc ine, unspecified formulation [facility] Work Phone: [facility] Work Phone: 04-29-2006 influenza virus vacc ine, unspecified formulation [facility] Work Phone: [facility] Work Phone: 04-24-2005 influenza virus vacc ine, whole virus [facility] Work Phone: [facility] Work Phone: 06-12-1999 pneumococcal polysaccharide vaccine, 23 valent [facility] Work Phone: [facility] Work Phone: 06-28-1997 diphtheria and tetan us toxoids, adsorbed for pediatric use [facility] Work Phone: [facility] Work Phone: Payers Date Payer Category Payer Medicare A[employer] MEDICARE A ETNA MEDICARE PPO [id number] 2021-Present [phone] [id number] [place] [address] PPO [id number] 2021 Medicare [id number] 2021 Medicare [id number] 1935 Unknown [id number] 1935 Unknown [id number] 1935 Unknown [id number] 1935 Unknown [id number] Medicare [id number] Social History Date Type Detail Facility Start: 09-08-2021 End: 09-08-2021 Assertion Unknown if ever smoked [facility] Work Phone: Start: 03-13-2022 End: 07-25-2022 Tobacco smoking status NHIS Ex-smoker [facility] Start: 07-01-1957 End: 07-01-1987 History of tobacco use Current smoker [facility] Start: 07-01-1957 End: 07-01-1987 History of tobacco use Cigarette Smoker [facility] Start: 09-25-2021 End: 05-21-2023 Alcohol intake Current drinker of alcohol (finding) [facility] Start: 10-24-2016 History SDOH Alcohol Comment rare wine. [facility] Start: 1935 Sex Assigned At Not on file C [facility] Start: 09-15-2021 End: 04-20-2022 Exposure to SARS-CoV-2 (event) Not sure [facility] Start: 03-13-2022 End: 07-25-2022 Tobacco use and exposure Smok[facility] Start: 03-13-2022 Alcohol Comment rarely [facility] Start: 06-10-2019 End: 12-17-2022 Cigarettes smoked current (pack per day) - Reported 1 [facility] Work Phone: Start: 03-28-2022 History SDOH Alcohol Comment socially [facility] Start: 12-17-2022 End: 01-28-2023 Tobacco use panel [facility] Work Phone: Adult Depression Screening Assessment 0 [facility] Work Phone: Medical Equipment Procedure Code Equipment Code Equipment Origin al Text Equipment Identifier Dates [employer] Planning Engineer-D [employer] Hang d X4 Df4 - [id number] FDA Start: 01-08-2019 Lead Lv Str Acui ty 86 - [id number] FDA Start: 01-08-2019 Vasc Closure Perclose Proglide - [id number] FDA Start: 07-04-2017 Stent Alan [place] R x 2.75x15 - [id number] FDA Start: 07-04-2017 Stent Alan Xience Alpin 3x33 - [id number] FDA Start: 08-01-2017 Clinical Notes 05-07-2017 to 06-26-2023 Elda Glass PA-C - 05/21/2023 7:48 PM ESTPatient InstructionsTelephone Encounter - Ysabel Good RN - 05/08/2023 3:02 PM Perry Jackson MD - 05/03/2023 1:49 PM EDT Note Date & Type Note Facility 06-26-2023 Note HNO ID: [id number] Author: Perry Olivas MD Service: ? Author Type: Physician Type: Progress Notes Filed: 06/26/2023 3:21 PM Note Text: This note was created using VSportoriter. Subjective Marcos Garcia is a 87 year old male here with spouse. His left leg wound healed and he was discharged from the wound center. His gluteal wound was nearly healed with self management. They had no acute concerns. noted his eyes watering often, and he seemed to pick his nose often from some irritation. Review of Systems Constitutional: Negative for chills, fever and unexpected weight change. HENT: Negative for nosebleeds, postnasal drip and rhinorrhea. Eyes: Negative for visual disturbance. Respiratory: Positive for shortness of breath. Negative for cough and wheezing. Cardiovascular: Positive for leg swelling. Negative for chest pain and palpitations. Musculoskeletal: Positive for gait problem. Neurological: Positive for weakness. 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 Chronic Kidney Disease, Without Long-Term Current Use of Insulin ([facility]) Primary Osteoarthritis Involving Multiple Joints Essential Hypertension Ashd (Arteriosclerotic Heart Disease) Cardiomyopathy, Ischemic VT (ventricular tachycardia) ([facility]) with AICD Bilateral Hearing Loss Neurogenic Claudication Due to Lumbar Spinal Stenosis Obesity, Class I, Bmi 30-34.9 Dermatophytosis of Nail Mood Disorder ([facility]) Gait Disturbance Paroxysmal Atrial Fibrillation ([facility]) Chronic Bilateral Low Back Pain Aortic Stenosis, Moderate History of Covid-19 Skin Ulcer of Left Lower Leg, Limited to Breakdown of Skin ([facility]) Current Outpatient Medications Medication Sig spironolactone (ALDACTONE) 25 mg tablet furosemide (LASIX) 40 mg tablet Take 2 tablets by mouth twice daily. silver sulfADIAZINE (SSD) 1 % cream Apply to affected area once daily. lidocaine (LIDODERM) 5 % sertraline (ZOLOFT) 50 mg tablet Take 1 tablet by mouth once daily. albuterol HFA (VENTOLIN HFA) 90 mcg/actuation inhaler Inhale 2 Puffs as instructed every 4 hours as needed for wheezing/shortness of breath. folic acid 1 mg tablet Take 1 tablet by mouth once daily. Clobetasol Propionate (TEMOVATE) 0.05 % external solution Apply 1 application to affected area once daily. rosuvastatin (CRESTOR) 10 mg tablet Take 10 mg by mouth once daily. Dr. Napier, [facility], Lipidology vit A/vit C/vit E/zinc/copper (PRESERVISION AREDS ORAL) Take 1 tablet by mouth twice daily. apixaban (ELIQUIS) 2.5 mg tab(s) Take 1 tablet by mouth twice daily. sacubitril-valsartan (ENTRESTO) 24-26 mg tablet Take 1 tablet by mouth twice daily. metoprolol succinate ER (TOPROL XL) 25 mg 24 hr tablet Take 1 tablet by mouth once daily. Per Dr. Ibarra. coenzyme Q10 (COENZYME Q-10) 100 mg cap capsule Take 100 mg by mouth once daily. isosorbide mononitrate ER (IMDUR) 60 mg 24 hr tablet Take 60 mg by mouth once daily. nitroglycerin sublingual (NITROSTAT) 0.4 mg SL tablet Dissolve 1 tablet under the tongue as needed for Chest Pain. If no pain relief call 911. Cholecalciferol, Vitamin D3, 2,000 unit cap Take 1 capsule by mouth once daily. aspirin, enteric coated (ADULT LOW DOSE ASPIRIN) 81 mg EC tablet Take 1 tablet by mouth once daily. Irvtyetpzsdmr-Xkyfgfgj-Llrwyb (CENTRUM SILVER) Tab Take 1 tablet by mouth once daily. No current facility-administered medications for this visit. Objective BP 118/62 Pulse 76 Temp 36.9 ?C (98.4 ?F) Resp 16 Wt 90 kg (198 lb 8 oz) SpO2 94% BMI 33.07 kg/m? Physical Exam Constitutional: General: He is not in acute distress. Comments: Wheelchair bound HENT: Nose: Mucosal edema present. Right Nostril: No epistaxis. Right Turbinates: Pale. Left Turbinates: Pale. Right Sinus: No maxillary sinus tenderness or frontal sinus tenderness. Left Sinus: No maxillary sinus tenderness or frontal sinus tenderness. Cardiovascular: Heart sounds: S1 normal and S2 normal. Murmur heard. Systolic murmur is present with a grade of 2/6. Pulmonary: Effort: No respiratory distress. Breath sounds: Examination of the right-lower field reveals rales. Examination of the left-lower field reveals rales. Rales present. Musculoskeletal: Right lower le+ Pitting Edema present. Left lower le+ Pitting Edema present. Neurological: Mental Status: He is alert. Component Latest Ref Rng AND Units 06/20/2023 Glucose 74 - 99 mg/dL 107 (H) BUN 9 - 24 mg/dL 87 (H) Creatinine 0.73 - 1.22 mg/dL 4.40 (H) Sodium 136 - 144 mmol/L 139 Potassium 3.7 - 5.1 mmol/L 5.1 Chloride 97 - 105 mmol/L 100 CO2 22 - 30 mmol/L 24 Anion Gap 9 - 18 mmol/L 15 Calcium 8.5 - 10.2 mg/dL 10.4 (H) eGFR >=60 mL/min/1.73mA? 12 (L) Cholesterol, Total <200 mg/dL 141 Triglyceride <150 mg/dL 99 HDL Cholesterol >39 mg/dL 39 (L) Non HDL Cholesterol <130 mg/dL 102 Fasting Time hrs 12 VLDL Cholesterol <30 mg/dL (more content not included)... [facility] 05-28-2023 Note HNO ID: [id number] Author: Roberto Vizcaino Service: ? Author Type: Physician Type: Progress Notes Filed: 05/28/2023 1:44 PM Note Text: Subjective: Patient presents to clinic c/o painful toenails. They state that the nails are especially painful with shoe gear and pressure. Patient admits to having lower extremity wounds managed at the wound center. No other pedal complaints at this time. Patient states no change in medications or medical history since last visit. Objective: [facility] Vasc: DP and PT pulses are nonpalpable bilateral. CFT is less than 5 seconds bilateral. Skin temperature is warm to cool proximal to distal bilateral. There is moderate edema or varicosities noted. Neuro: Protective sensation is absent to the foot and toes when tested with the 5.07 SWM bilateral. . The hallux is downgoing bilateral. Derm: Nails 1-5 b/l are painful, discolored-yellow, thick, crumbly, dystrophic and with subungal debris. Left hallux medial nail border is ingrowing with skin indentation but no infection is noted. Skin is thin, ruborous and cold and hair growth is absent bilateral. Ortho: Muscle strength is 5/5 for all pedal groups tested. Ankle joint DF is decreased with the knee extended with no pain or crepitus noted. 1st MPJ ROM is decreased bilateral. Assessment: (B35.1) Onychomycosis (primary encounter diagnosis) (M79.675) Pain in toe of left jesenia (M79.674) Pain in toe of right foot (I73.9) PAD (peripheral artery disease) (HCC (L60.0) Ingrowing toenail of left foot Plan: Patient was seen and evaluated. Nails 1-5 bilateral were debrided in length and thickness. He has ingrowing with out signs of infection to left hallux medial nail border. I will have him apply neosporin to the toe for 3-4 days. Can follow-up in 1-2 weeks or if he is seeing the wound center, they can certainly monitor if there are any issues. He has superficial blood blisters of multiple toes that were removed with fingers and alcohol pads and intact skin is noted. Continue to monitor Patient is to RTC in 3-4 months. Roberto Vizcaino DPM [facility] 05-28-2023 Note HNO ID: [id number] Author: Jasmin Sosa, SULLY Service: ? Author Type: Registered Nurse Type: Progress Notes Filed: 05/28/2023 1:44 PM Note Text: AMB ROOMING INTAKE FLOWSHEET DATA Patient presents with: Left Foot - Established Patient: nail care Right Foot - Established Patient: nail care [facility] 05-21-2023 Note HNO ID: [id number] Author: Elda Glass PA-C Service: ? Author Type: Physician Journal Entry Audit Clerk Type: Progress Notes Filed: 05/21/2023 7:51 PM Note Text: This note was created using VSportoriter. Subjective Marcos Garcia is a 87 year old male. HPI Patient presents with a sore on his buttock over the past 3 to 4 weeks. Today it was bothering him more so his brought him in for evaluation. He does sit the majority of the time. He does sleep in a recliner chair. Does have an ulcer that he is seeing wound care for in his left leg. He has been putting Desitin on the area. No fever or chills. Review of Systems Skin: Buttock wound All other systems reviewed and are negative. PAST MEDICAL HISTORY Diagnosis Date Abscess of intestine Acute myocardial infarction, unspecified site, subsequent episode of care x 2 Aortic stenosis, moderate 04/20/2022 ASHD (arteriosclerotic heart disease) 03/20/2010 Bilateral hearing loss 10/24/2016 Cardiomyopathy, ischemic 05/18/2016 Chronic low back pain with sciatica 05/07/2017 CKD (chronic kidney disease) stage 3, GFR 30-59 ml/min ([facility]) 10/24/2016 DDD (degenerative disc disease), lumbar 10/19/2011 Diabetes mellitus type 2, controlled, without complications ([facility]) 07/25/2005 Diverticulitis of colon (without mention of hemorrhage)(562.11) 04/18/2005 Essential hypertension 03/20/2010 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 Mixed hyperlipidemia 04/18/2005 Neurogenic claudication due to lumbar spinal stenosis 05/01/2017 Other psoriasis 04/18/2005 Paroxysmal atrial fibrillation ([facility]) 05/06/2020 Polymyalgia rheumatica ([facility]) Primary osteoarthritis involving multiple joints 07/25/2005 Unspecified hemorrhoids with other complication VT (ventricular tachycardia) ([facility]) with AICD 07/24/2017 AICD Current Outpatient Medications Medication Sig Dispense Refill spironolactone (ALDACTONE) 25 mg tablet furosemide (LASIX) 40 mg tablet Take 2 tablets by mouth twice daily. silver sulfADIAZINE (SSD) 1 % cream Apply to affected area once daily. 50 g 2 lidocaine (LIDODERM) 5 % sertraline (ZOLOFT) 50 mg tablet Take 1 tablet by mouth once daily. 90 tablet 3 albuterol HFA (VENTOLIN HFA) 90 mcg/actuation inhaler Inhale 2 Puffs as instructed every 4 hours as needed for wheezing/shortness of breath. 1 Each 0 folic acid 1 mg tablet Take 1 tablet by mouth once daily. 90 tablet 3 Clobetasol Propionate (TEMOVATE) 0.05 % external solution Apply 1 application to affected area once daily. rosuvastatin (CRESTOR) 10 mg tablet Take 10 mg by mouth once daily. Dr. Napier, [facility], Lipidology vit A/vit C/vit E/zinc/copper (PRESERVISION AREDS ORAL) Take 1 tablet by mouth twice daily. apixaban (ELIQUIS) 2.5 mg tab(s) Take 1 tablet by mouth twice daily. sacubitril-valsartan (ENTRESTO) 24-26 mg tablet Take 1 tablet by mouth twice daily. metoprolol succinate ER (TOPROL XL) 25 mg 24 hr tablet Take 1 tablet by mouth once daily. Per Dr. Ibarra. coenzyme Q10 (COENZYME Q-10) 100 mg cap capsule Take 100 mg by mouth once daily. isosorbide mononitrate ER (IMDUR) 60 mg 24 hr tablet Take 60 mg by mouth once daily. nitroglycerin sublingual (NITROSTAT) 0.4 mg SL tablet Dissolve 1 tablet under the tongue as needed for Chest Pain. If no pain relief call 911. 25 tablet 3 Cholecalciferol, Vitamin D3, 2,000 unit cap Take 1 capsule by mouth once daily. aspirin, enteric coated (ADULT LOW DOSE ASPIRIN) 81 mg EC tablet Take 1 tablet by mouth once daily. 0 Xhqlcnfykgsmw-Bffzxozg-Tctcft (CENTRUM SILVER) Tab Take 1 tablet by mouth once daily. 0 doxycycline (VIBRA-TABS) 100 mg tablet Take 1 tablet by mouth two times a day for 7 days. 14 tablet 0 mupirocin (BACTROBAN) 2 % ointment Apply to affected area three times a day for 5 days. 22 g 0 No current facility-administered medications for this visit. 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 1995. 2002. PAST SURGICAL HISTORY OF 08/2001 Arthroscopy Right Shoulder PAST SURGICAL HISTORY OF 08/08/2004 Right CTR PAST SURGICAL HISTORY OF 08/24/2004 Left CTR STENT - CORONARY 07/04/2017 ALAN x 3 to LAD, ALAN x 1 prox. OM1. (4 stents) FAMILY HISTORY Problem Relation Age of Onset Diabetes Mother Arthritis Mother Breast Cancer Sister Social History Tobacco Use Smoking status: Former Packs/day: 0.50 Years: 30.00 Additional pack years: 0.00 Total pack years: 15.00 Types: Cigarettes Start date: 07/01/1957 Quit date: 07/01/1987 Years since quittin.9 Smokeless tobacco: Never Vaping Use Vaping Use: Never used Substance Use Topics Alcohol use: Yes Comment: rare wine. Drug use: No Objec (more content not included)... [facility] 05-21-2023 History of Present illness Narrative Images from the original note were not included. This note was created using ZeroFOX. Subjective Marcos Garcia is a 87 year old male. HPI Patient presents with a sore on his buttock over the past 3 to 4 weeks. Today it was bothering him more so his brought him in for evaluation. He does sit the majority of the time. He does sleep in a recliner chair. Does have an ulcer that he is seeing wound care for in his left leg. He has been putting Desitin on the area. No fever or chills. Review of Systems Skin: Buttock wound All other systems reviewed and are negative. PAST MEDICAL HISTORY Diagnosis Date Abscess of intestine Acute myocardial infarction, unspecified site, subsequent episode of care x 2 Aortic stenosis, moderate 04/20/2022 ASHD (arteriosclerotic heart disease) 03/20/2010 Bilateral hearing loss 10/24/2016 Cardiomyopathy, ischemic 05/18/2016 Chronic low back pain with sciatica 05/07/2017 CKD (chronic kidney disease) stage 3, GFR 30-59 ml/min ([facility]) 10/24/2016 DDD (degenerative disc disease), lumbar 10/19/2011 Diabetes mellitus type 2, controlled, without complications ([facility]) 07/25/2005 Diverticulitis of colon (without mention of hemorrhage)(562.11) 04/18/2005 Essential hypertension 03/20/2010 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 Mixed hyperlipidemia 04/18/2005 Neurogenic claudication due to lumbar spinal stenosis 05/01/2017 Other psoriasis 04/18/2005 Paroxysmal atrial fibrillation (HCC) 05/06/2020 Polymyalgia rheumatica ([facility]) Primary osteoarthritis involving multiple joints 07/25/2005 Unspecified hemorrhoids with other complication VT (ventricular tachycardia) ([facility]) with AICD 07/24/2017 AICD Current Outpatient Medications Medication Sig Dispense Refill spironolactone (ALDACTONE) 25 mg tablet furosemide (LASIX) 40 mg tablet Take 2 tablets by mouth twice daily. silver sulfADIAZINE (SSD) 1 % cream Apply to affected area once daily. 50 g 2 lidocaine (LIDODERM) 5 % sertraline (ZOLOFT) 50 mg tablet Take 1 tablet by mouth once daily. 90 tablet 3 albuterol HFA (VENTOLIN HFA) 90 mcg/actuation inhaler Inhale 2 Puffs as instructed every 4 hours as needed for wheezing/shortness of breath. 1 Each 0 folic acid 1 mg tablet Take 1 tablet by mouth once daily. 90 tablet 3 Clobetasol Propionate (TEMOVATE) 0.05 % external solution Apply 1 application to affected area once daily. rosuvastatin (CRESTOR) 10 mg tablet Take 10 mg by mouth once daily. Dr. Napier, [facility], Lipidology vit A/vit C/vit E/zinc/copper (PRESERVISION AREDS ORAL) Take 1 tablet by mouth twice daily. apixaban (ELIQUIS) 2.5 mg tab(s) Take 1 tablet by mouth twice daily. sacubitril-valsartan (ENTRESTO) 24-26 mg tablet Take 1 tablet by mouth twice daily. metoprolol succinate ER (TOPROL XL) 25 mg 24 hr tablet Take 1 tablet by mouth once daily. Per Dr. Ibarra. coenzyme Q10 (COENZYME Q-10) 100 mg cap capsule Take 100 mg by mouth once daily. isosorbide mononitrate ER (IMDUR) 60 mg 24 hr tablet Take 60 mg by mouth once daily. nitroglycerin sublingual (NITROSTAT) 0.4 mg SL tablet Dissolve 1 tablet under the tongue as needed for Chest Pain. If no pain relief call 911. 25 tablet 3 Cholecalciferol, Vitamin D3, 2,000 unit cap Take 1 capsule by mouth once daily. aspirin, enteric coated (ADULT LOW DOSE ASPIRIN) 81 mg EC tablet Take 1 tablet by mouth once daily. 0 Jcjyehznsumrm-Acrhixtp-Hhwgoq (CENTRUM SILVER) Tab Take 1 tablet by mouth once daily. 0 doxycycline (VIBRA-TABS) 100 mg tablet Take 1 tablet by mouth two times a day for 7 days. 14 tablet 0 mupirocin (BACTROBAN) 2 % ointment Apply to affected area three times a day for 5 days. 22 g 0 No current facility-administered medications for this visit. 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 1995. 2002. PAST SURGICAL HISTORY OF 08/2001 Arthroscopy Right Shoulder PAST SURGICAL HISTORY OF 08/08/2004 Right CTR PAST SURGICAL HISTORY OF 08/24/2004 Left CTR STENT - CORONARY 07/04/2017 ALAN x 3 to LAD, ALAN x 1 prox. OM1. (4 stents) FAMILY HISTORY Problem Relation Age of Onset Diabetes Mother Arthritis Mother Breast Cancer Sister Social History Tobacco Use Smoking status: Former Packs/day: 0.50 Years: 30.00 Additional pack years: 0.00 Total pack years: 15.00 Types: Cigarettes Start date: 07/01/1957 Quit date: 07/01/1987 Years since quittin.9 Smokeless tobacco: Never Vaping Use Vaping Use: Never used Substance Use Topics Alcohol use: Yes Comment: rare wine. Drug use: No Objective BP 122/68 Pulse 78 Temp 37.1 C (98.7 F) Resp 16 SpO2 98% Physical Exam Vitals reviewed. Constitutional: Appearance: Normal appearance. HENT: Head: Normocephalic and atraumatic. Skin: Comments: Has erythema of the skin on the left buttock adjacent to the gluteal. There is a central opening to this. It is dry, no drainage noted. No sign of an abscess. Neurological: Mental Status: He is alert. Assessment and Plan ASSESSMENT/PLAN: 1. Buttock wound, left, initial encounter - ICD9: 877.0, ICD10: S31.829A Patient does have a decubitus ulcer starting, I will place him on doxycycline as he does have some redness around it but does not look significantly infected. Also given mupirocin. Discussed the importance of changing position every 2 hours and trying to put as little pressure on the area as possible. He is already established with wound care. Recommended seeing them again. If area worsens in the meantime he needs to see his PCP. and patient agreeable with plan. Elda Glass PA-C documented in this encounter [facility] 05-21-2023 Instructions Elda Glass PA-C - 05/21/2023 7:31 PM EST Make sure he changes position every 2 hours and try to not sit flat on the buttock for prolonged period. Ointment with wound care that he has already scheduled for his other wound and make sure they evaluate his buttock area. Follow-up with PCP in the meantime if worsening. documented in this encounter [facility] 05-08-2023 Miscellaneous Notes Quinn PT calling from [facility] to report plan of care for patient and PT will visit patient 2 times a week for 4 weeks. PT will work with patient on functional mobility training. No call back needed unless provider has questions. Ysabel Good RN documented in this encounter [facility] 05-03-2023 Note HNO ID: [id number] Author: Perry Olivas MD Service: ? Author Type: Physician Type: Progress Notes Filed: 05/03/2023 4:04 PM Note Text: This note was created using VSportoriter. Subjective Patient presents with: Equipment Question: Stair lift. Marcos Garcia is a 87 year old male here with spouse. He has chronic gait abnormality, and was walker dependent at home, and wheelchair dependent for outside the home. He has a recliner/lift chair where he stays and sleeps, being confined mainly to one level (family room) of their split level home. Stairs have been progressively difficult with to use with his walker for several months. He has been falling more. They are interested in a stair lift, primarily from garage to family room, possibly from family to kitchen. They inquired with their insurance and was advised to have an evaluation. His left leg ulcer was improving. Review of Systems Constitutional: Positive for fatigue. Negative for chills and fever. Respiratory: Positive for shortness of breath. Negative for cough, chest tightness and wheezing. Cardiovascular: Positive for leg swelling. Negative for chest pain and palpitations. Genitourinary: Negative for difficulty urinating. Musculoskeletal: Positive for gait problem. Neurological: Positive for weakness. 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 Chronic Kidney Disease, Without Long-Term Current Use of Insulin ([facility]) Primary Osteoarthritis Involving Multiple Joints Essential Hypertension Ashd (Arteriosclerotic Heart Disease) Cardiomyopathy, Ischemic VT (ventricular tachycardia) ([facility]) with AICD Bilateral Hearing Loss Neurogenic Claudication Due to Lumbar Spinal Stenosis Obesity, Class I, Bmi 30-34.9 Dermatophytosis of Nail Mood Disorder ([facility]) Gait Disturbance Paroxysmal Atrial Fibrillation ([facility]) Chronic Bilateral Low Back Pain Aortic Stenosis, Moderate History of Covid-19 Skin Ulcer of Left Lower Leg, Limited to Breakdown of Skin ([facility]) Current Outpatient Medications Medication Sig spironolactone (ALDACTONE) 25 mg tablet furosemide (LASIX) 40 mg tablet Take 2 tablets by mouth twice daily. silver sulfADIAZINE (SSD) 1 % cream Apply to affected area once daily. lidocaine (LIDODERM) 5 % sertraline (ZOLOFT) 50 mg tablet Take 1 tablet by mouth once daily. albuterol HFA (VENTOLIN HFA) 90 mcg/actuation inhaler Inhale 2 Puffs as instructed every 4 hours as needed for wheezing/shortness of breath. folic acid 1 mg tablet Take 1 tablet by mouth once daily. Clobetasol Propionate (TEMOVATE) 0.05 % external solution Apply 1 application to affected area once daily. rosuvastatin (CRESTOR) 10 mg tablet Take 10 mg by mouth once daily. Dr. Napier, [facility], Lipidology vit A/vit C/vit E/zinc/copper (PRESERVISION AREDS ORAL) Take 1 tablet by mouth twice daily. apixaban (ELIQUIS) 2.5 mg tab(s) Take 1 tablet by mouth twice daily. sacubitril-valsartan (ENTRESTO) 24-26 mg tablet Take 1 tablet by mouth twice daily. metoprolol succinate ER (TOPROL XL) 25 mg 24 hr tablet Take 1 tablet by mouth once daily. Per Dr. Ibarra. coenzyme Q10 (COENZYME Q-10) 100 mg cap capsule Take 100 mg by mouth once daily. isosorbide mononitrate ER (IMDUR) 60 mg 24 hr tablet Take 60 mg by mouth once daily. nitroglycerin sublingual (NITROSTAT) 0.4 mg SL tablet Dissolve 1 tablet under the tongue as needed for Chest Pain. If no pain relief call 911. Cholecalciferol, Vitamin D3, 2,000 unit cap Take 1 capsule by mouth once daily. aspirin, enteric coated (ADULT LOW DOSE ASPIRIN) 81 mg EC tablet Take 1 tablet by mouth once daily. Oftzejcbdjubn-Azgwljur-Qxuhkw (CENTRUM SILVER) Tab Take 1 tablet by mouth once daily. No current facility-administered medications for this visit. Objective BP 118/58 Pulse 70 Resp 16 Wt 90.4 kg (199 lb 3.2 oz) SpO2 100% BMI 33.19 kg/m? Physical Exam Constitutional: General: He is not in acute distress. Appearance: He is not diaphoretic. HENT: Head: Normocephalic. Cardiovascular: Rate and Rhythm: Normal rate and regular rhythm. Heart sounds: Murmur heard. Systolic murmur is present with a grade of 2/6. Pulmonary: Effort: No respiratory distress. Breath sounds: Examination of the right-lower field reveals rhonchi. Examination of the left-lower field reveals rhonchi. Rhonchi present. No wheezing. Musculoskeletal: Right lower le+ Pitting Edema present. Left lower le+ Pitting Edema present. Neurological: General: No focal deficit present. Mental Status: He is alert. Mental status is at baseline. Comments: Wheelchair bound. It is unsafe to attempt to ambulate him in the exam room. Assessment and Plan 1. Gait disturbance - ICD9: 781.2, ICD10: R26.9 (primary diagnosis) - MOVEABLE PATIENT LIFT SYSTEM 2. Impaired mobility - ICD9: 799.89, ICD10: Z74.09 - MOVEABLE PATIENT LIFT SYSTEM 3. Cardiomyopathy, ischemic - (more content not included)... [facility] 05-03-2023 History of Present illness Narrative This note was created using NoteWriter. Subjective Patient presents with: Equipment Question: Stair lift. Marcos Garcia is a 87 year old male here with spouse. He has chronic gait abnormality, and was walker dependent at home, and wheelchair dependent for outside the home. He has a recliner/lift chair where he stays and sleeps, being confined mainly to one level (family room) of their split level home. Stairs have been progressively difficult with to use with his walker for several months. He has been falling more. They are interested in a stair lift, primarily from garage to family room, possibly from family to kitchen. They inquired with their insurance and was advised to have an evaluation. His left leg ulcer was improving. Review of Systems Constitutional: Positive for fatigue. Negative for chills and fever. Respiratory: Positive for shortness of breath. Negative for cough, chest tightness and wheezing. Cardiovascular: Positive for leg swelling. Negative for chest pain and palpitations. Genitourinary: Negative for difficulty urinating. Musculoskeletal: Positive for gait problem. Neurological: Positive for weakness. 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 Chronic Kidney Disease, Without Long-Term Current Use of Insulin ([facility]) Primary Osteoarthritis Involving Multiple Joints Essential Hypertension Ashd (Arteriosclerotic Heart Disease) Cardiomyopathy, Ischemic VT (ventricular tachycardia) ([facility]) with AICD Bilateral Hearing Loss Neurogenic Claudication Due to Lumbar Spinal Stenosis Obesity, Class I, Bmi 30-34.9 Dermatophytosis of Nail Mood Disorder ([facility]) Gait Disturbance Paroxysmal Atrial Fibrillation ([facility]) Chronic Bilateral Low Back Pain Aortic Stenosis, Moderate History of Covid-19 Skin Ulcer of Left Lower Leg, Limited to Breakdown of Skin ([facility]) Current Outpatient Medications Medication Sig spironolactone (ALDACTONE) 25 mg tablet furosemide (LASIX) 40 mg tablet Take 2 tablets by mouth twice daily. silver sulfADIAZINE (SSD) 1 % cream Apply to affected area once daily. lidocaine (LIDODERM) 5 % sertraline (ZOLOFT) 50 mg tablet Take 1 tablet by mouth once daily. albuterol HFA (VENTOLIN HFA) 90 mcg/actuation inhaler Inhale 2 Puffs as instructed every 4 hours as needed for wheezing/shortness of breath. folic acid 1 mg tablet Take 1 tablet by mouth once daily. Clobetasol Propionate (TEMOVATE) 0.05 % external solution Apply 1 application to affected area once daily. rosuvastatin (CRESTOR) 10 mg tablet Take 10 mg by mouth once daily. [facility], Lipidology vit A/vit C/vit E/zinc/copper (PRESERVISION AREDS ORAL) Take 1 tablet by mouth twice daily. apixaban (ELIQUIS) 2.5 mg tab(s) Take 1 tablet by mouth twice daily. sacubitril-valsartan (ENTRESTO) 24-26 mg tablet Take 1 tablet by mouth twice daily. metoprolol succinate ER (TOPROL XL) 25 mg 24 hr tablet Take 1 tablet by mouth once daily. Per Dr. Ibarra. coenzyme Q10 (COENZYME Q-10) 100 mg cap capsule Take 100 mg by mouth once daily. isosorbide mononitrate ER (IMDUR) 60 mg 24 hr tablet Take 60 mg by mouth once daily. nitroglycerin sublingual (NITROSTAT) 0.4 mg SL tablet Dissolve 1 tablet under the tongue as needed for Chest Pain. If no pain relief call 911. Cholecalciferol, Vitamin D3, 2,000 unit cap Take 1 capsule by mouth once daily. aspirin, enteric coated (ADULT LOW DOSE ASPIRIN) 81 mg EC tablet Take 1 tablet by mouth once daily. Uvavmsozpvklb-Jqittaya-Ugcawl (CENTRUM SILVER) Tab Take 1 tablet by mouth once daily. No current facility-administered medications for this visit. Objective BP 118/58 Pulse 70 Resp 16 Wt 90.4 kg (199 lb 3.2 oz) SpO2 100% BMI 33.19 kg/m Physical Exam Constitutional: General: He is not in acute distress. Appearance: He is not diaphoretic. HENT: Head: Normocephalic. Cardiovascular: Rate and Rhythm: Normal rate and regular rhythm. Heart sounds: Murmur heard. Systolic murmur is present with a grade of 2/6. Pulmonary: Effort: No respiratory distress. Breath sounds: Examination of the right-lower field reveals rhonchi. Examination of the left-lower field reveals rhonchi. Rhonchi present. No wheezing. Musculoskeletal: Right lower le+ Pitting Edema present. Left lower le+ Pitting Edema present. Neurological: General: No focal deficit present. Mental Status: He is alert. Mental status is at baseline. Comments: Wheelchair bound. It is unsafe to attempt to ambulate him in the exam room. Assessment and Plan 1. Gait disturbance - ICD9: 781.2, ICD10: R26.9 (primary diagnosis) - MOVEABLE PATIENT LIFT SYSTEM 2. Impaired mobility - ICD9: 799.89, ICD10: Z74.09 - MOVEABLE PATIENT LIFT SYSTEM 3. Cardiomyopathy, ischemic - ICD9: 414.8, ICD10: I25.5 - MOVEABLE PATIENT LIFT SYSTEM 4. Neurogenic claudication due to lumbar spinal stenosis - ICD9: 724.03, ICD10: M48.062 - MOVEABLE PATIENT LIFT SYSTEM Above is specified as an order for a STAIR LIFT system. Perry Olivas MD documented in this encounter [facility] 05-01-2023 Miscellaneous Notes Below response left on identified vm. Dorota Gaffney [employer] Left message to call office. 04/30/2023 1:24 PM Sure, I'll follow. Kimberly with [facility] calls to report that pt was accepted into Home Health with referral from Dr. Aquino(?) for wound care. Kimberly is asking if pcp will follow pt while in HH for other issues unrelated to wound care. Call Kimberly with pcp message. Anna Gonzalez LPN documented in this encounter [facility] 04-14-2023 Note HNO ID: [id number] Author: Otoniel Rasmussen APRN.SE[employer] INSTALLER Service: ? Author Type: Nurse Practitioner Type: Progress Notes Filed: 04/14/2023 12:14 PM Note Text: Subjective HPI HPI Marcos Garcia is a 87 year old male who presents today for CC of blister of right lower extremity. This started 1 day ago. Has tried nothing for relief. Symptoms are worsened by nothing. Hx diabetes, lower leg wound. Denies injury .Patient presents with: Edema: Blister on RLE, x 1 day PAST MEDICAL HISTORY Diagnosis Date Abscess of intestine Acute myocardial infarction, unspecified site, subsequent episode of care x 2 Aortic stenosis, moderate 04/20/2022 ASHD (arteriosclerotic heart disease) 03/20/2010 Bilateral hearing loss 10/24/2016 Cardiomyopathy, ischemic 05/18/2016 Chronic low back pain with sciatica 05/07/2017 CKD (chronic kidney disease) stage 3, GFR 30-59 ml/min ([facility]) 10/24/2016 DDD (degenerative disc disease), lumbar 10/19/2011 Diabetes mellitus type 2, controlled, without complications ([facility]) 07/25/2005 Diverticulitis of colon (without mention of hemorrhage)(562.11) 04/18/2005 Essential hypertension 03/20/2010 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 Mixed hyperlipidemia 04/18/2005 Neurogenic claudication due to lumbar spinal stenosis 05/01/2017 Other psoriasis 04/18/2005 Paroxysmal atrial fibrillation (HCC) 05/06/2020 Polymyalgia rheumatica ([facility]) Primary osteoarthritis involving multiple joints 07/25/2005 Unspecified hemorrhoids with other complication VT (ventricular tachycardia) ([facility]) with AICD 07/24/2017 AICD PAST SURGICAL HISTORY Procedure Laterality Date COLONOSCOPY 07/14/2003 COLONOSCOPY FLX DX W/COLLJ SPEC WHEN PFRMD 08/27/2013 Colonoscopy CORONARY STENT EA VESSEL 08/01/2017 ALAN mid RCA, balloon angioplasty distal RCA 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 1995. 2002. PAST SURGICAL HISTORY OF 08/2001 Arthroscopy Right Shoulder PAST SURGICAL HISTORY OF 08/08/2004 Right CTR PAST SURGICAL HISTORY OF 08/24/2004 Left CTR STENT - CORONARY 07/04/2017 ALAN x 3 to LAD, ALAN x 1 prox. OM1. (4 stents) ALLERGIES Accupril [Quinapril Hcl], Diovan [Valsartan], Biaxin [Clarithromycin], Crestor [Rosuvastatin Calcium], Lipitor [Atorvastatin Calcium], Pravachol [Pravastatin Sodium], Vytorin 04/09 [Ezetimibe-Simvastatin], Zyrtec [Cetirizine Hcl], Avapro [Irbesartan], Benicar [Olmesartan Medoxomil], Chlorthalidone, Lovaza [Glasgow-3 Acid Ethyl Esters], Metoprolol, Red Yeast Rice, and Zetia [Ezetimibe] MEDICATIONS albuterol HFA (VENTOLIN HFA) 90 mcg/actuation inhaler Inhale 2 Puffs as instructed every 4 hours as needed for wheezing/shortness of breath. apixaban (ELIQUIS) 2.5 mg tab(s) Take 1 tablet by mouth twice daily. aspirin, enteric coated (ADULT LOW DOSE ASPIRIN) 81 mg EC tablet Take 1 tablet by mouth once daily. cephALEXin (KEFLEX) 500 mg capsule Take 1 capsule by mouth two times a day for 7 days. Cholecalciferol, Vitamin D3, 2,000 unit cap Take 1 capsule by mouth once daily. Clobetasol Propionate (TEMOVATE) 0.05 % external solution Apply 1 application to affected area once daily. coenzyme Q10 (COENZYME Q-10) 100 mg cap capsule Take 100 mg by mouth once daily. folic acid 1 mg tablet Take 1 tablet by mouth once daily. furosemide (LASIX) 40 mg tablet Take 2 tablets by mouth twice daily. isosorbide mononitrate ER (IMDUR) 60 mg 24 hr tablet Take 60 mg by mouth once daily. lidocaine (LIDODERM) 5 % metoprolol succinate ER (TOPROL XL) 25 mg 24 hr tablet Take 1 tablet by mouth once daily. Per Dr. Ibarra. Yvovzexfvbljp-Miupdfyp-Lfwjju (CENTRUM SILVER) Tab Take 1 tablet by mouth once daily. nitroglycerin sublingual (NITROSTAT) 0.4 mg SL tablet Dissolve 1 tablet under the tongue as needed for Chest Pain. If no pain relief call 911. rosuvastatin (CRESTOR) 10 mg tablet Take 10 mg by mouth once daily. LUCRETIA Mills, Lipidology sacubitril-valsartan (ENTRESTO) 24-26 mg tablet Take 1 tablet by mouth twice daily. sertraline (ZOLOFT) 50 mg tablet Take 1 tablet by mouth once daily. silver sulfADIAZINE (SSD) 1 % cream Apply to affected area once daily. spironolactone (ALDACTONE) 25 mg tablet vit A/vit C/vit E/zinc/copper (PRESERVISION AREDS ORAL) Take 1 tablet by mouth twice daily. FAMILY HISTORY Problem Relation Age of Onset Diabetes Mother Arthritis Mother Breast Cancer Sister Social History Tobacco Use Smoking status: Former Packs/day: 0.50 Years: 30.00 Additional pack years: 0.00 Total pack years: 15.00 Types: Cigarettes Start date: 07/01/1957 Quit date: 07/01/1987 Years since quittin.8 Smokeless tobacco: Never Vaping Use Vaping Use: Never used Substance Use Topics Alcohol use: Yes Comment: rare wine. Drug use: No Review of Systems Constitutional: Negative for fever. Skin: Negative for itching and rash. Objective Blood (more content not included)... [facility] 04-14-2023 History of Present illness Narrative Images from the original note were not included. Subjective HPI HPI Marcos Garcia is a 87 year old male who presents today for CC of blister of right lower extremity. This started 1 day ago. Has tried nothing for relief. Symptoms are worsened by nothing. Hx diabetes, lower leg wound. Denies injury .Patient presents with: Edema: Blister on RLE, x 1 day PAST MEDICAL HISTORY Diagnosis Date Abscess of intestine Acute myocardial infarction, unspecified site, subsequent episode of care x 2 Aortic stenosis, moderate 04/20/2022 ASHD (arteriosclerotic heart disease) 03/20/2010 Bilateral hearing loss 10/24/2016 Cardiomyopathy, ischemic 05/18/2016 Chronic low back pain with sciatica 05/07/2017 CKD (chronic kidney disease) stage 3, GFR 30-59 ml/min ([facility]) 10/24/2016 DDD (degenerative disc disease), lumbar 10/19/2011 Diabetes mellitus type 2, controlled, without complications ([facility]) 07/25/2005 Diverticulitis of colon (without mention of hemorrhage)(562.11) 04/18/2005 Essential hypertension 03/20/2010 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 Mixed hyperlipidemia 04/18/2005 Neurogenic claudication due to lumbar spinal stenosis 05/01/2017 Other psoriasis 04/18/2005 Paroxysmal atrial fibrillation (HCC) 05/06/2020 Polymyalgia rheumatica ([facility]) Primary osteoarthritis involving multiple joints 07/25/2005 Unspecified hemorrhoids with other complication VT (ventricular tachycardia) ([facility]) with AICD 07/24/2017 AICD PAST SURGICAL HISTORY Procedure Laterality Date COLONOSCOPY 07/14/2003 COLONOSCOPY FLX DX W/COLLJ SPEC WHEN PFRMD 08/27/2013 Colonoscopy CORONARY STENT EA VESSEL 08/01/2017 ALAN mid RCA, balloon angioplasty distal RCA 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 1995. 2002. PAST SURGICAL HISTORY OF 08/2001 Arthroscopy Right Shoulder PAST SURGICAL HISTORY OF 08/08/2004 Right CTR PAST SURGICAL HISTORY OF 08/24/2004 Left CTR STENT - CORONARY 07/04/2017 ALAN x 3 to LAD, ALAN x 1 prox. OM1. (4 stents) ALLERGIES Accupril [Quinapril Hcl], Diovan [Valsartan], Biaxin [Clarithromycin], Crestor [Rosuvastatin Calcium], Lipitor [Atorvastatin Calcium], Pravachol [Pravastatin Sodium], Vytorin 10 [Ezetimibe-Simvastatin], Zyrtec [Cetirizine Hcl], Avapro [Irbesartan], Benicar [Olmesartan Medoxomil], Chlorthalidone, Lovaza [Glasgow-3 Acid Ethyl Esters], Metoprolol, Red Yeast Rice, and Zetia [Ezetimibe] MEDICATIONS albuterol HFA (VENTOLIN HFA) 90 mcg/actuation inhaler Inhale 2 Puffs as instructed every 4 hours as needed for wheezing/shortness of breath. apixaban (ELIQUIS) 2.5 mg tab(s) Take 1 tablet by mouth twice daily. aspirin, enteric coated (ADULT LOW DOSE ASPIRIN) 81 mg EC tablet Take 1 tablet by mouth once daily. cephALEXin (KEFLEX) 500 mg capsule Take 1 capsule by mouth two times a day for 7 days. Cholecalciferol, Vitamin D3, 2,000 unit cap Take 1 capsule by mouth once daily. Clobetasol Propionate (TEMOVATE) 0.05 % external solution Apply 1 application to affected area once daily. coenzyme Q10 (COENZYME Q-10) 100 mg cap capsule Take 100 mg by mouth once daily. folic acid 1 mg tablet Take 1 tablet by mouth once daily. furosemide (LASIX) 40 mg tablet Take 2 tablets by mouth twice daily. isosorbide mononitrate ER (IMDUR) 60 mg 24 hr tablet Take 60 mg by mouth once daily. lidocaine (LIDODERM) 5 % metoprolol succinate ER (TOPROL XL) 25 mg 24 hr tablet Take 1 tablet by mouth once daily. Per Dr. Ibarra. Atefkwhdmhvko-Azjtlttv-Enehxz (CENTRUM SILVER) Tab Take 1 tablet by mouth once daily. nitroglycerin sublingual (NITROSTAT) 0.4 mg SL tablet Dissolve 1 tablet under the tongue as needed for Chest Pain. If no pain relief call 911. rosuvastatin (CRESTOR) 10 mg tablet Take 10 mg by mouth once daily. Dr. Napier, [facility], Lipidology sacubitril-valsartan (ENTRESTO) 24-26 mg tablet Take 1 tablet by mouth twice daily. sertraline (ZOLOFT) 50 mg tablet Take 1 tablet by mouth once daily. silver sulfADIAZINE (SSD) 1 % cream Apply to affected area once daily. spironolactone (ALDACTONE) 25 mg tablet vit A/vit C/vit E/zinc/copper (PRESERVISION AREDS ORAL) Take 1 tablet by mouth twice daily. FAMILY HISTORY Problem Relation Age of Onset Diabetes Mother Arthritis Mother Breast Cancer Sister Social History Tobacco Use Smoking status: Former Packs/day: 0.50 Years: 30.00 Additional pack years: 0.00 Total pack years: 15.00 Types: Cigarettes Start date: 07/01/1957 Quit date: 07/01/1987 Years since quittin.8 Smokeless tobacco: Never Vaping Use Vaping Use: Never used Substance Use Topics Alcohol use: Yes Comment: rare wine. Drug use: No Review of Systems Constitutional: Negative for fever. Skin: Negative for itching and rash. Objective Blood pressure 131/84, pulse 70, temperature 36.6 C (97.8 F), resp. rate 22, weight 93 kg (205 lb), SpO2 97 %. Component Latest Ref Rng & Units 03/21/2023 Glucose 74 - 99 mg/dL 132 (H) BUN 9 - 24 mg/dL 43 (H) Creatinine 0.73 - 1.22 mg/dL 2.54 (H) Sodium 136 - 144 mmol/L 142 Potassium 3.7 - 5.1 mmol/L 4.0 Chloride 97 - 105 mmol/L 102 CO2 22 - 30 mmol/L 26 Anion Gap 9 - 18 mmol/L 14 Calcium 8.5 - 10.2 mg/dL 10.1 eGFR >=60 mL/min/1.73m 24 (L) Physical Exam Constitutional: General: He is not in acute distress. Appearance: He is not toxic-appearing or diaphoretic. HENT: Head: Normocephalic and atraumatic. Pulmonary: Effort: Pulmonary effort is normal. No accessory muscle usage or respiratory distress. Skin: Neurological: Mental Status: He is alert and oriented to person, place, and time. ASSESSMENT/PLAN: 1. Blister - ICD9: 919.2, ICD10: T14.8XXA Cover for infection Possible bullous impetigo Leave blister intact Keep follow up with wound clinic this week Urgent follow up for worsening symptoms. - CEPHALEXIN 500 MG CAPSULE Otoniel Rasmussen APRN.SE[employer] TANK INSTALLER documented in this encounter [facility] 04-14-2023 Instructions Otoniel Rasmussen APRN.CNP - 04/14/2023 12:03 PM EDT ASSESSMENT/PLAN: 1. Blister - ICD9: 919.2, ICD10: T14.8XXA Cover for infection Possible bullous impetigo Leave blister intact Keep follow up with wound clinic this week Urgent follow up for worsening symptoms. - CEPHALEXIN 500 MG CAPSULE documented in this encounter [facility] 03-27-2023 Note HNO ID: [id number] Author: Perry Olivas MD Service: ? Author Type: Physician Type: Progress Notes Filed: 03/27/2023 2:53 PM Note Text: This note was created using NoteWriter. Subjective Marcos Garcia is a 87 year old male. He was seen at and here for a wound of the left leg probably present for more than one week, but only recently brought to his 's attention. He has a tendency to scratch due to psoriasis. Edema had been stable. Furosemide dose changed. Review of Systems Constitutional: Negative for fever and unexpected weight change. HENT: Negative. Respiratory: Negative for chest tightness and shortness of breath. Cardiovascular: Positive for leg swelling. Negative for chest pain and palpitations. Gastrointestinal: Negative for constipation. Genitourinary: Negative for difficulty urinating. Musculoskeletal: Positive for gait problem. Psychiatric/Behavioral: Negative for confusion. 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 Chronic Kidney Disease, Without Long-Term Current Use of Insulin ([facility]) Primary Osteoarthritis Involving Multiple Joints Essential Hypertension Ashd (Arteriosclerotic Heart Disease) Cardiomyopathy, Ischemic VT (ventricular tachycardia) ([facility]) with AICD Bilateral Hearing Loss Neurogenic Claudication Due to Lumbar Spinal Stenosis Obesity, Class I, Bmi 30-34.9 Dermatophytosis of Nail Mood Disorder ([facility]) Gait Disturbance Paroxysmal Atrial Fibrillation ([facility]) Chronic Bilateral Low Back Pain Aortic Stenosis, Moderate History of Covid-19 Current Outpatient Medications Medication Sig silver sulfADIAZINE (SSD) 1 % cream Apply to affected area once daily. doxycycline (VIBRA-TABS) 100 mg tablet Take 1 tablet by mouth twice daily for 7 days. lidocaine (LIDODERM) 5 % sertraline (ZOLOFT) 50 mg tablet Take 1 tablet by mouth once daily. albuterol HFA (VENTOLIN HFA) 90 mcg/actuation inhaler Inhale 2 Puffs as instructed every 4 hours as needed for wheezing/shortness of breath. folic acid 1 mg tablet Take 1 tablet by mouth once daily. Clobetasol Propionate (TEMOVATE) 0.05 % external solution Apply 1 application to affected area once daily. rosuvastatin (CRESTOR) 10 mg tablet Take 10 mg by mouth once daily. LUCRETIA Mills, Lipidology vit A/vit C/vit E/zinc/copper (PRESERVISION AREDS ORAL) Take 1 tablet by mouth twice daily. apixaban (ELIQUIS) 2.5 mg tab(s) Take 1 tablet by mouth twice daily. furosemide (LASIX) 40 mg tablet Take 2 tablets by mouth every morning AND 1 tablet daily before lunch. sacubitril-valsartan (ENTRESTO) 24-26 mg tablet Take 1 tablet by mouth twice daily. metoprolol succinate ER (TOPROL XL) 25 mg 24 hr tablet Take 1 tablet by mouth once daily. Per Dr. Ibarra. coenzyme Q10 (COENZYME Q-10) 100 mg cap capsule Take 100 mg by mouth once daily. isosorbide mononitrate ER (IMDUR) 60 mg 24 hr tablet Take 60 mg by mouth once daily. nitroglycerin sublingual (NITROSTAT) 0.4 mg SL tablet Dissolve 1 tablet under the tongue as needed for Chest Pain. If no pain relief call 911. Cholecalciferol, Vitamin D3, 2,000 unit cap Take 1 capsule by mouth once daily. aspirin, enteric coated (ADULT LOW DOSE ASPIRIN) 81 mg EC tablet Take 1 tablet by mouth once daily. Pryzefaygwmdk-Ytqbxhxu-Ibwrwj (CENTRUM SILVER) Tab Take 1 tablet by mouth once daily. No current facility-administered medications for this visit. Objective BP 118/76 (BP Site: Left Arm, BP Position: Sitting, BP Cuff Size: Large Adult) Pulse 80 Temp 36.8 ?C (98.3 ?F) (Temporal) Ht 165 cm (5' 4.96 ) Wt 94.3 kg (207 lb 12.8 oz) BMI 34.62 kg/m? Physical Exam Constitutional: General: He is not in acute distress. Appearance: He is not diaphoretic. HENT: Head: Normocephalic. Eyes: Conjunctiva/sclera: Conjunctivae normal. Cardiovascular: Rate and Rhythm: Normal rate and regular rhythm. Heart sounds: Murmur heard. Systolic murmur is present with a grade of 2/6. Pulmonary: Effort: No respiratory distress. Breath sounds: Examination of the right-lower field reveals rales. Examination of the left-lower field reveals rales. Rales present. Abdominal: Palpations: Abdomen is soft. Tenderness: There is no abdominal tenderness. Musculoskeletal: Right lower le+ Pitting Edema present. Left lower le+ Pitting Edema present. Skin: Comments: 6 x 4 cm ulcer on erythematous base, left lower tibial leg. Satellite ulcer 2 x 2 cm below main ulcer. No drainage. Mild erythema of intact skin. Neurological: General: No focal deficit present. Mental Status: He is alert. Mental status is at baseline. Comments: Wheelchair bound. Component Latest Ref Rng AND Units 03/21/2023 WBC 3.70 - 11.00 k/uL 4.18 RBC 4.20 - 6.00 m/uL 4.12 (L) Hemoglobin 13.0 - 17.0 g/dL 13.3 Hematocrit 39.0 - 51.0 % 42.3 MCV 80.0 - 100.0 fL 102.7 (H) MCH 26.0 - 34.0 pg 32.3 MCHC 30.5 - 36.0 g/dL 31.4 RDW- (more content not included)... [facility] 03-27-2023 Note HNO ID: [id number] Author: Perry Olivas MD Service: ? Author Type: Physician Type: Progress Notes Filed: 03/27/2023 2:53 PM Note Text: Marcos Garcia is a 87 year old male here for a Medicare wellness visit. Health Risk Assessment In general, health is: Fair Concerns with balance:Nearly every day Concerns with teeth or dentures:Not at all Concerns with sexual function:Not at all [place] anxious, stressed, angry, irritable, lonely, isolated, or had thoughts of hurting themself: Not at all Has little interest or pleasure in doing things: Not at all Bothered by feeling down, depressed, or hopeless: Not at all Needs help with grocery shopping, cooking, housework, bathing, grooming, dressing, eating, sitting or standing, walking, using the toilet, handling finances, taking medications, using the telephone, or driving: Yes Following safety precautions in the home environment and vehicle: removed throw rugs from floors, installed grab bars in the bathroom, handrails in stairwells, having adequate lighting, wearing seatbelt at all times?: Yes Smokes cigarettes, vapes, or chew tobacco: No Eats healthy foods including fruits, vegetables, whole grains, and fiber-rich foods: More than half the days Number of days per week engages in exercise: 0 days Average alcohol consumption: Monthly or less Current Providers Specialists: I have reviewed specialist-related care of the patient in the medical record. Current care team: Patient Care Team: Perry Olivas MD as PCP - General (Internal Medicine) Paul Lopez as Physician (Ophthalmology) Dr. Jose Ibarra, cardiology. Dr. Robbie Boykin, dermatology. Dr. Vizcaino, podiatry. Dr. Bob Napier, lipidologist. Medical/Family history review Reviewed and updated problem list, medical/surgical/family/social history, medications, and allergies. Opioid use review Patient is not currently using opioids. Prescribed No opioid use on file in the last 90 days Depression screening Depression Screening PHQ-2 Score 12/17/2022 0 Depression screening tool completed and reviewed. Based on score and interview, patient is not at risk for depression. Screening tool discussed with patient, and I recommended no further intervention at this time. Cognitive screening Mini Cog Score: Score: 2 Functional Observation Was the patient's timed Up AND Go test unsteady or ? 12 seconds? Yes Advance Care Planning End of Life planning discussed, including patient's advanced directive wishes: Yes Measurements BP 118/76 Pulse 80 Temp (Src) 98.3 (Temporal) Ht 5' 4.961 (1.65m) Wt 207 lb 12.8 oz (94.3kg) BMI 34.62 kg/(m2). Visual acuity (required for Welcome to Medicare): Right: 20/50 Left: 20/ 50 Both: 20/50 Hearing Evaluation: wears hearing aids Assessment/Plan Medicare annual wellness visit, subsequent (Z00.00) - Counseled on healthy diet and regular exercise - Fall avoidance - Vaccines recommended Influenza - Depression screening [facility] 03-25-2023 Note HNO ID: [id number] Author: Stella Rooney APRN.SE[employer]ANK INSTALLER Service: ? Author Type: Nurse Practitioner Type: Progress Notes Filed: 03/25/2023 12:13 PM Note Text: SUBJECTIVE Marcos Garcia is a 87 year old male here today for a check up on his medical problems. Chief Complaint Patient presents with: Recheck: Urgent Care on 03/22/23 for cellulitis of left lower leg. Started doxycyline on Saturday HPI Marcos Garcia is a 87 year old male established patient of Perry Olivas MD. He presents today for an [facility] follow up. Over the weekend on Saturday, 03/22, he was seen in [facility] for cellulitis to the left lower leg. Apparently he has had recent issues with an open wound and cellulitis to this area about a month ago. He had a culture done in [facility] that is positive for staph aureus. On doxycycline. He and state today that the wound and redness to the leg look improved. Onset for this episode of the wound was 03/21. They noticed the wound being open that day. No systemic symptoms. His medications were reviewed today and his list is now up to date. Medications Current Outpatient Medications Medication Sig doxycycline (VIBRA-TABS) 100 mg tablet Take 1 tablet by mouth twice daily for 7 days. lidocaine (LIDODERM) 5 % sertraline (ZOLOFT) 50 mg tablet Take 1 tablet by mouth once daily. albuterol HFA (VENTOLIN HFA) 90 mcg/actuation inhaler Inhale 2 Puffs as instructed every 4 hours as needed for wheezing/shortness of breath. folic acid 1 mg tablet Take 1 tablet by mouth once daily. Clobetasol Propionate (TEMOVATE) 0.05 % external solution Apply 1 application to affected area once daily. rosuvastatin (CRESTOR) 10 mg tablet Take 10 mg by mouth once daily. Dr. Napier, [facility], Lipidology vit A/vit C/vit E/zinc/copper (PRESERVISION AREDS ORAL) Take 1 tablet by mouth twice daily. apixaban (ELIQUIS) 2.5 mg tab(s) Take 1 tablet by mouth twice daily. furosemide (LASIX) 40 mg tablet Take 2 tablets by mouth every morning AND 1 tablet daily before lunch. sacubitril-valsartan (ENTRESTO) 24-26 mg tablet Take 1 tablet by mouth twice daily. metoprolol succinate ER (TOPROL XL) 25 mg 24 hr tablet Take 1 tablet by mouth once daily. Per Dr. Ibarra. coenzyme Q10 (COENZYME Q-10) 100 mg cap capsule Take 100 mg by mouth once daily. isosorbide mononitrate ER (IMDUR) 60 mg 24 hr tablet Take 60 mg by mouth once daily. nitroglycerin sublingual (NITROSTAT) 0.4 mg SL tablet Dissolve 1 tablet under the tongue as needed for Chest Pain. If no pain relief call 911. Cholecalciferol, Vitamin D3, 2,000 unit cap Take 1 capsule by mouth once daily. aspirin, enteric coated (ADULT LOW DOSE ASPIRIN) 81 mg EC tablet Take 1 tablet by mouth once daily. Datngboazshri-Xdwjrnlg-Dhxdkh (CENTRUM SILVER) Tab Take 1 tablet by mouth once daily. silver sulfADIAZINE (SSD) 1 % cream Apply to affected area once daily. traMADol (ULTRAM) 50 mg tablet Take 25-50 mg by mouth three times daily as needed. Not started yet (Patient not taking: Reported on 03/25/2023) No current facility-administered medications for this visit. ALLERGIES Allergen Reactions Accupril [Quinapril* Swelling LIPS SWELL ANGIOEDEMA Diovan [Valsartan] Hives hives when [id number] Biaxin [Clarithromy* Intolerance Crestor [Rosuvastat* Intolerance MYALGIA Lipitor [Atorvastat* Intolerance MYALGIA Pravachol [Pravasta* Intolerance MYALGIAS Vytorin 04/09 [Ezet* Intolerance MYALGIAS Zyrtec [Cetirizine * Intolerance MYALGIA Avapro [Irbesartan] Intolerance myalgia Benicar [Olmesartan* Intolerance myalgia Chlorthalidone Other: See Comments muscle aching,leg pain difficulty walk Lovaza [Glasgow-3 Aci* Other: See Comments myalgias but can take fish oil Metoprolol Intolerance myalgia,fatigue, Red Yeast Rice Intolerance elevated ck Zetia [Ezetimibe] Intolerance myalgia ACTIVE PROBLEM LIST History of Covid-19 - 05/21/2022 Aortic Stenosis, Moderate - 04/20/2022 Chronic Bilateral Low Back Pain - 11/03/2020 Paroxysmal Atrial Fibrillation (H[facility]) - 05/06/2020 Gait Disturbance - 12/17/2019 Mood Disorder (Hcc) - 11/02/2019 Dermatophytosis of Nail - 05/06/2019 Controlled Type 2 Diabetes Mellitus With Stage 3 Chronic Kidney Disease, Without Long-Term Current Use of Insulin ([facility]) - 10/29/2018 Obesity, Class I, Bmi 30-34.9 - 10/29/2018 VT (ventricular tachycardia) ([facility]) with AICD - 07/24/2017 Neurogenic Claudication Due to Lumbar Spinal Stenosis - 05/01/2017 Bilateral Hearing Loss - 10/24/2016 Cardiomyopathy, Ischemic - 05/18/2016 Essential Hypertension - 03/20/2010 Ashd (Arteriosclerotic Heart Disease) - 03/20/2010 Primary Osteoarthritis Involving Multiple Joints - 07/25/2005 Mixed Hyperlipidemia - 04/18/2005 Social History Tobacco Use Smoking status: Former Packs/day: 0.50 Years: 30.00 Additional pack years: 0.00 Total pack years: 15.00 Types: Cigarettes Start date: 07/01/1957 Quit date: 07/01/1987 Years since q (more content not included)... [facility] 03-22-2023 Note HNO ID: [id number] Author: Paul Storm APRN.[employer] INSTALLER Service: ? Author Type: Nurse Practitioner Type: Progress Notes Filed: 03/22/2023 12:08 PM Note Text: Subjective HPI Nontoxic-appearing male presents urgent care accompanied by significant other. Chief complaint leg wound. Duration of symptoms states she noticed it yesterday. Presents today for evaluation. Patient was seen here in January with cellulitis and ulcer left lower leg. This to the same spot. Was evaluated by PCP mid January referred to wound care. States wound did heal. Does have a history of peripheral vascular disease. Presents today with new onset left lower leg wound. Has been keeping area clean and covered. Overall feels well. No systemic symptoms. Denies any fever body aches chills productive cough chest pain shortness of breath pleuritic pain hemoptysis nausea vomiting abdominal pain change in bowel or bladder habits. Past medical history prescription medication use and allergies reviewed. .Patient presents with: Leg Wound: Blister on LLE x 1 day PAST MEDICAL HISTORY Diagnosis Date Abscess of intestine Acute myocardial infarction, unspecified site, subsequent episode of care x 2 Aortic stenosis, moderate 04/20/2022 ASHD (arteriosclerotic heart disease) 03/20/2010 Bilateral hearing loss 10/24/2016 Cardiomyopathy, ischemic 05/18/2016 Chronic low back pain with sciatica 05/07/2017 CKD (chronic kidney disease) stage 3, GFR 30-59 ml/min ([facility]) 10/24/2016 DDD (degenerative disc disease), lumbar 10/19/2011 Diabetes mellitus type 2, controlled, without complications ([facility]) 07/25/2005 Diverticulitis of colon (without mention of hemorrhage)(562.11) 04/18/2005 Essential hypertension 03/20/2010 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 Mixed hyperlipidemia 04/18/2005 Neurogenic claudication due to lumbar spinal stenosis 05/01/2017 Other psoriasis 04/18/2005 Paroxysmal atrial fibrillation (HCC) 05/06/2020 Polymyalgia rheumatica ([facility]) Primary osteoarthritis involving multiple joints 07/25/2005 Unspecified hemorrhoids with other complication VT (ventricular tachycardia) ([facility]) with AICD 07/24/2017 AICD PAST SURGICAL HISTORY Procedure Laterality Date COLONOSCOPY 07/14/2003 COLONOSCOPY FLX DX W/COLLJ SPEC WHEN PFRMD 08/27/2013 Colonoscopy CORONARY STENT EA VESSEL 08/01/2017 ALAN mid RCA, balloon angioplasty distal RCA 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 1995. 2002. PAST SURGICAL HISTORY OF 08/2001 Arthroscopy Right Shoulder PAST SURGICAL HISTORY OF 08/08/2004 Right CTR PAST SURGICAL HISTORY OF 08/24/2004 Left CTR STENT - CORONARY 07/04/2017 ALAN x 3 to LAD, ALAN x 1 prox. OM1. (4 stents) ALLERGIES Accupril [Quinapril Hcl], Diovan [Valsartan], Biaxin [Clarithromycin], Crestor [Rosuvastatin Calcium], Lipitor [Atorvastatin Calcium], Pravachol [Pravastatin Sodium], Vytorin 10/10 [Ezetimibe-Simvastatin], Zyrtec [Cetirizine Hcl], Avapro [Irbesartan], Benicar [Olmesartan Medoxomil], Chlorthalidone, Lovaza [Glasgow-3 Acid Ethyl Esters], Metoprolol, Red Yeast Rice, and Zetia [Ezetimibe] MEDICATIONS lidocaine (LIDODERM) 5 % sertraline (ZOLOFT) 50 mg tablet Take 1 tablet by mouth once daily. albuterol HFA (VENTOLIN HFA) 90 mcg/actuation inhaler Inhale 2 Puffs as instructed every 4 hours as needed for wheezing/shortness of breath. folic acid 1 mg tablet Take 1 tablet by mouth once daily. traMADol (ULTRAM) 50 mg tablet Take 25-50 mg by mouth three times daily as needed. Not started yet Clobetasol Propionate (TEMOVATE) 0.05 % external solution Apply 1 application to affected area once daily. rosuvastatin (CRESTOR) 10 mg tablet Take 10 mg by mouth once daily. BRAYAN MillsU, Lipidology vit A/vit C/vit E/zinc/copper (PRESERVISION AREDS ORAL) Take 1 tablet by mouth twice daily. apixaban (ELIQUIS) 2.5 mg tab(s) Take 1 tablet by mouth twice daily. furosemide (LASIX) 40 mg tablet Take 2 tablets by mouth every morning AND 1 tablet daily before lunch. sacubitril-valsartan (ENTRESTO) 24-26 mg tablet Take 1 tablet by mouth twice daily. metoprolol succinate ER (TOPROL XL) 25 mg 24 hr tablet Take 1 tablet by mouth once daily. Per Dr. Ibarra. coenzyme Q10 (COENZYME Q-10) 100 mg cap capsule Take 100 mg by mouth once daily. isosorbide mononitrate ER (IMDUR) 60 mg 24 hr tablet Take 60 mg by mouth once daily. nitroglycerin sublingual (NITROSTAT) 0.4 mg SL tablet Dissolve 1 tablet under the tongue as needed for Chest Pain. If no pain relief call 911. Cholecalciferol, Vitamin D3, 2,000 unit cap Take 1 capsule by mouth once daily. aspirin, enteric coated (ADULT LOW DOSE ASPIRIN) 81 mg EC tablet Take 1 tablet by mouth once daily. Xxmvzhkovcymz-Fduukdgg-Owmluj (CENTRUM SILVER) Tab Take 1 tablet by mouth once daily. FAMILY HISTORY Problem Relation Age of Onset Diabetes Mother Arthritis Mot (more content not included)... [facility] 03-22-2023 History of Present illness Narrative Images from the original note were not included. Subjective HPI Nontoxic-appearing male presents urgent care accompanied by significant other. Chief complaint leg wound. Duration of symptoms states she noticed it yesterday. Presents today for evaluation. Patient was seen here in January with cellulitis and ulcer left lower leg. This to the same spot. Was evaluated by PCP mid January referred to wound care. States wound did heal. Does have a history of peripheral vascular disease. Presents today with new onset left lower leg wound. Has been keeping area clean and covered. Overall feels well. No systemic symptoms. Denies any fever body aches chills productive cough chest pain shortness of breath pleuritic pain hemoptysis nausea vomiting abdominal pain change in bowel or bladder habits. Past medical history prescription medication use and allergies reviewed. .Patient presents with: Leg Wound: Blister on LLE x 1 day PAST MEDICAL HISTORY Diagnosis Date Abscess of intestine Acute myocardial infarction, unspecified site, subsequent episode of care x 2 Aortic stenosis, moderate 04/20/2022 ASHD (arteriosclerotic heart disease) 03/20/2010 Bilateral hearing loss 10/24/2016 Cardiomyopathy, ischemic 05/18/2016 Chronic low back pain with sciatica 05/07/2017 CKD (chronic kidney disease) stage 3, GFR 30-59 ml/min ([facility]) 10/24/2016 DDD (degenerative disc disease), lumbar 10/19/2011 Diabetes mellitus type 2, controlled, without complications ([facility]) 07/25/2005 Diverticulitis of colon (without mention of hemorrhage)(562.11) 04/18/2005 Essential hypertension 03/20/2010 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 Mixed hyperlipidemia 04/18/2005 Neurogenic claudication due to lumbar spinal stenosis 05/01/2017 Other psoriasis 04/18/2005 Paroxysmal atrial fibrillation (HCC) 05/06/2020 Polymyalgia rheumatica (HCC) Primary osteoarthritis involving multiple joints 07/25/2005 Unspecified hemorrhoids with other complication VT (ventricular tachycardia) (HCC) with AICD 07/24/2017 AICD PAST SURGICAL HISTORY Procedure Laterality Date COLONOSCOPY 07/14/2003 COLONOSCOPY FLX DX W/COLLJ SPEC WHEN PFRMD 08/27/2013 Colonoscopy CORONARY STENT EA VESSEL 08/01/2017 ALAN mid RCA, balloon angioplasty distal RCA 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 1996. 2002. PAST SURGICAL HISTORY OF 08/2001 Arthroscopy Right Shoulder PAST SURGICAL HISTORY OF 08/08/2004 Right CTR PAST SURGICAL HISTORY OF 08/24/2004 Left CTR STENT - CORONARY 07/04/2017 ALAN x 3 to LAD, ALAN x 1 prox. OM1. (4 stents) ALLERGIES Accupril [Quinapril Hcl], Diovan [Valsartan], Biaxin [Clarithromycin], Crestor [Rosuvastatin Calcium], Lipitor [Atorvastatin Calcium], Pravachol [Pravastatin Sodium], Vytorin 04/09 [Ezetimibe-Simvastatin], Zyrtec [Cetirizine Hcl], Avapro [Irbesartan], Benicar [Olmesartan Medoxomil], Chlorthalidone, Lovaza [Glasgow-3 Acid Ethyl Esters], Metoprolol, Red Yeast Rice, and Zetia [Ezetimibe] MEDICATIONS lidocaine (LIDODERM) 5 % sertraline (ZOLOFT) 50 mg tablet Take 1 tablet by mouth once daily. albuterol HFA (VENTOLIN HFA) 90 mcg/actuation inhaler Inhale 2 Puffs as instructed every 4 hours as needed for wheezing/shortness of breath. folic acid 1 mg tablet Take 1 tablet by mouth once daily. traMADol (ULTRAM) 50 mg tablet Take 25-50 mg by mouth three times daily as needed. Not started yet Clobetasol Propionate (TEMOVATE) 0.05 % external solution Apply 1 application to affected area once daily. rosuvastatin (CRESTOR) 10 mg tablet Take 10 mg by mouth once daily. LUCRETIA Mills, Lipidology vit A/vit C/vit E/zinc/copper (PRESERVISION AREDS ORAL) Take 1 tablet by mouth twice daily. apixaban (ELIQUIS) 2.5 mg tab(s) Take 1 tablet by mouth twice daily. furosemide (LASIX) 40 mg tablet Take 2 tablets by mouth every morning AND 1 tablet daily before lunch. sacubitril-valsartan (ENTRESTO) 24-26 mg tablet Take 1 tablet by mouth twice daily. metoprolol succinate ER (TOPROL XL) 25 mg 24 hr tablet Take 1 tablet by mouth once daily. Per Dr. Ibarra. coenzyme Q10 (COENZYME Q-10) 100 mg cap capsule Take 100 mg by mouth once daily. isosorbide mononitrate ER (IMDUR) 60 mg 24 hr tablet Take 60 mg by mouth once daily. nitroglycerin sublingual (NITROSTAT) 0.4 mg SL tablet Dissolve 1 tablet under the tongue as needed for Chest Pain. If no pain relief call 911. Cholecalciferol, Vitamin D3, 2,000 unit cap Take 1 capsule by mouth once daily. aspirin, enteric coated (ADULT LOW DOSE ASPIRIN) 81 mg EC tablet Take 1 tablet by mouth once daily. Xpzyuhjfckoew-Pcheelvr-Xltznn (CENTRUM SILVER) Tab Take 1 tablet by mouth once daily. FAMILY HISTORY Problem Relation Age of Onset Diabetes Mother Arthritis Mother Breast Cancer Sister Social History Tobacco Use Smoking status: Former Packs/day: 0.50 Years: 30.00 Additional pack years: 0.00 Total pack years: 15.00 Types: Cigarettes Start date: 07/01/1957 Quit date: 07/01/1987 Years since quittin.7 Smokeless tobacco: Never Vaping Use Vaping Use: Never used Substance Use Topics Alcohol use: Yes Comment: rare wine. Drug use: No BP 112/75 Pulse 70 Temp 36.2 C (97.1 F) Resp 20 SpO2 98% Review of Systems Constitutional: Negative for chills, fever and malaise/fatigue. HENT: Negative for congestion, ear discharge, ear pain, sinus pain and sore throat. Eyes: Negative for blurred vision, pain, discharge and redness. Respiratory: Negative for cough, hemoptysis, sputum production, shortness of breath, wheezing and stridor. Cardiovascular: Negative for chest pain. Gastrointestinal: Negative for abdominal pain, diarrhea, nausea and vomiting. Musculoskeletal: Negative for joint pain and myalgias. Skin: Negative for itching and rash. Neurological: Negative for dizziness and headaches. Objective Physical Exam Constitutional: General: He is not in acute distress. Appearance: He is not toxic-appearing. HENT: Head: Normocephalic. Nose: Nose normal. Eyes: Pupils: Pupils are equal, round, and reactive to light. Cardiovascular: Rate and Rhythm: Normal rate. Pulmonary: Effort: Pulmonary effort is normal. No respiratory distress. Musculoskeletal: Cervical back: Normal range of motion. Legs: Comments: Edema noted to left lower leg. Approximately a 6 cm x 8 cm shallow ulcer noted. Some surrounding erythema. Neurovascular intact. Skin: General: Skin is warm and dry. Neurological: General: No focal deficit present. Mental Status: He is alert. ASSESSMENT/PLAN: 1. Cellulitis of skin - ICD9: 682.9, ICD10: L03.90 - ABSCESS AND WOUND CULTURE WITH GRAM STAIN Did have blood work obtained yesterday. No bump in white count was noted. Wound culture obtained. Will be placed on doxycycline. Last positive wound culture was sensitive to tetracyclines. We will follow-up with PCP on Saturday for wound reevaluation. We discussed the need for wound care as well. Patient was educated on supportive therapies. Patient was instructed to immediately proceed to emergency room for any new, worsening, or symptoms lasting longer than anticipated. The patient's clinical presentation is otherwise unremarkable at this time. Based on exam and clinical finding, the patient is stable for discharge. Plan of care was discussed with patient. Patient verbalizes understanding and agrees to plan of care. This note was generated using ShareYour[employer] software. It may contain errors in wording, punctuation, or spelling. Paul Storm APRN.KELSI documented in this encounter [facility] 03-11-2023 Note HNO ID: [id number] Author: Juan Brandt RN Service: ? Author Type: Registered Nurse Type: Progress Notes Filed: 03/11/2023 2:02 PM Note Text: [facility] NURSE - CHART REVIEW Provider [facility] Action Chart review, no ED visits noted at [facility] or out of network. Pt active with [facility] PCP and multiple non [facility] specialty physicians. Pt identified by name and . Reason for Review: Payor request Patient Attributed To: QAE Payer: [employer] Chart Review For: Utilization: ED Total Patient High CostTotal Patient High Cost {HIGH COST:557325) Quality measure review Payor request for assistance Action Taken: No action needed Juan Brandt RN March 11, 2023 1:59 PM [facility] 03-11-2023 Note Patient Outreach (AM [facility]) MARCOS GARCIA ([id number]) 1935 M Date Time Provider Department 03/11/23 JUAN BRANDT [facility] During your visit today, we recorded the following information about you: Juan Brandt RN 03/11/2023 2:02 PM Signed [facility] NURSE - CHART REVIEW Provider [facility] Action Chart review, no ED visits noted at [facility] or out of network. Pt active with [facility] PCP and multiple non [facility] specialty physicians. Pt identified by name and . Reason for Review: Payor request Patient Attributed To: QAE Payer: [employer] Chart Review For: Utilization: ED Total Patient High CostTotal Patient High Cost {HIGH COST:483288) Quality measure review Payor request for assistance Action Taken: No action needed Juan Brandt RN March 11, 2023 1:59 PM Allergies As of Date: 03/11/2023 Noted Allergy Reaction ACCUPRIL (QUINAPRIL HCL) 04/18/2005 7 - Swelling Comments: LIPS SWELL ANGIOEDEMA DIOVAN (VALSARTAN) 04/18/2005 4 - Hives Comments: hives when [id number] BIAXIN (CLARITHROMYCIN) 04/18/2005 5 - Intolerance CRESTOR (ROSUVASTATIN CALCIUM) 04/18/2005 5 - Intolerance Comments: MYALGIA LIPITOR (ATORVASTATIN CALCIUM) 04/18/2005 5 - Intolerance Comments: MYALGIA PRAVACHOL (PRAVASTATIN SODIUM) 04/18/2005 5 - Intolerance Comments: MYALGIAS VYTORIN 04/09 (EZETIMIBE-SIMVASTA*04/18/2005 5 - Intolerance Comments: MYALGIAS ZYRTEC (CETIRIZINE HCL) 04/18/2005 5 - Intolerance Comments: MYALGIA AVAPRO (IRBESARTAN) 06/21/2010 5 - Intolerance Comments: myalgia BENICAR (OLMESARTAN MEDOXOMIL) 06/21/2010 5 - Intolerance Comments: myalgia CHLORTHALIDONE 12/22/2010 14 - Other: See Comments Comments: muscle aching,leg pain difficulty walk LOVAZA (OMEGA-3 ACID ETHYL ESTERS)08/17/2011 14 - Other: See Comments Comments: myalgias but can take fish oil METOPROLOL 10/27/2010 5 - Intolerance Comments: myalgia,fatigue, RED YEAST RICE 01/28/2007 5 - Intolerance Comments: elevated ck ZETIA (EZETIMIBE) 06/21/2010 5 - Intolerance Comments: myalgia Date Reviewed: 02/21/2023 Reviewed by: Dorota Gaffney LPN - Fully Assessed Prescriptions as of 03/11/2023 - lidocaine (LIDODERM) 5 % - sertraline (ZOLOFT) 50 mg tablet Take 1 tablet by mouth once daily. - albuterol HFA (VENTOLIN HFA) 90 mcg/actuation inhaler Inhale 2 Puffs as instructed every 4 hours as needed for wheezing/shortness of breath. - folic acid 1 mg tablet Take 1 tablet by mouth once daily. - traMADol (ULTRAM) 50 mg tablet Take 25-50 mg by mouth three times daily as needed. Not started yet - Clobetasol Propionate (TEMOVATE) 0.05 % external solution Apply 1 application to affected area once daily. - rosuvastatin (CRESTOR) 10 mg tablet Take 10 mg by mouth once daily. Dr. Napier, [facility], Lipidology - vit A/vit C/vit E/zinc/copper (PRESERVISION AREDS ORAL) Take 1 tablet by mouth twice daily. - apixaban (ELIQUIS) 2.5 mg tab(s) Take 1 tablet by mouth twice daily. - furosemide (LASIX) 40 mg tablet Take 2 tablets by mouth every morning AND 1 tablet daily before lunch. - sacubitril-valsartan (ENTRESTO) 24-26 mg tablet Take 1 tablet by mouth twice daily. - metoprolol succinate ER (TOPROL XL) 25 mg 24 hr tablet Take 1 tablet by mouth once daily. Per Dr. Ibarra. - coenzyme Q10 (COENZYME Q-10) 100 mg cap capsule Take 100 mg by mouth once daily. - isosorbide mononitrate ER (IMDUR) 60 mg 24 hr tablet Take 60 mg by mouth once daily. - nitroglycerin sublingual (NITROSTAT) 0.4 mg SL tablet Dissolve 1 tablet under the tongue as needed for Chest Pain. If no pain relief call 911. - Cholecalciferol, Vitamin D3, 2,000 unit cap Take 1 capsule by mouth once daily. - aspirin, enteric coated (ADULT LOW DOSE ASPIRIN) 81 mg EC tablet Take 1 tablet by mouth once daily. - Aueafbxynazyj-Dfwrvpsm-Gdqtfe (CENTRUM SILVER) Tab Take 1 tablet by mouth once daily. Problem List As Of Date 03/11/2023 Noted Resolved Mixed hyperlipidemia [E78.2] 04/18/2005 Other psoriasis [L40.8] 04/18/2005 04/29/2017 Diverticulitis of colon (without mention of hem*04/18/2005 10/24/2016 Polymyalgia rheumatica (HCC) [M35.3] 04/24/2005 10/24/2016 Controlled type 2 diabetes mellitus with stage *10/29/2018 Primary osteoarthritis involving multiple joint*07/25/2005 Essential hypertension [I10] 03/20/2010 ASHD (Arteriosclerotic Heart Disease) [I25.10] 03/20/2010 Adverse drug effect [T50.905A] 12/24/2010 04/29/2017 DDD (degenerative disc disease), lumbar [M51.36]10/19/2011 10/24/2016 Sciatica [M54.30] 10/19/2011 10/24/2016 Unspecified arthropathy, pelvic region and thig*11/30/2013 04/24/2016 History of TN (myocardial infarction) [I25.2] 05/01/2016 05/01/2018 Cardiomyopathy, ischemic [I25.5] 05/18/2016 VT (ventricular tachycardia) (HCC) with AICD [I*07/24/2017 Bilateral hearing loss [H91.93] 10/24/2016 CKD (chronic kidney disease) stage (more content not included)... [facility] 03-11-2023 History of Present illness Narrative CC [facility] NURSE - CHART REVIEW Provider [facility] Action Chart review, no ED visits noted at [facility] or out of network. Pt active with [facility] PCP and multiple non [facility] specialty physicians. Pt identified by name and . Reason for Review: Payor request Patient Attributed To: ABHAYE Payer: SASCHA Chart Review For: Utilization: ED Total Patient High CostTotal Patient High Cost {HIGH COST:604596) Quality measure review Payor request for assistance Action Taken: No action needed Juan Brandt RN March 11, 2023 1:59 PM documented in this encounter [facility] 03-08-2023 Miscellaneous Notes Spoke with patient's - Wheelchair faxed to [facility]. She will let us know at a later time where she would like the lift chair to go. LUCY full - will try again later. SHIVA Pressley - LUC[facility] full. Will try again later. Orders filed, will fax once she gives us DME company information Agata Quiles APRN.CNP Patient's calling to request 2 DME orders for patient, if provider agreeable. lightweight transport wheelchair (pended) Stair lift (motorized unit that transfers patient up and down small stairway in home, reports insurance will cover most of it) to call back with fax numbers/companies she would like orders faxed/sent to. Chelsie Cueto RN documented in this encounter [facility] 03-06-2023 Miscellaneous Notes Pt will be having a tooth extracted by Dr Barrera De Jesus. Giuliano is requesting pt's med list & problem list. Faxed as requested to [phone]. Eugenie Lr LPN documented in this encounter [facility] 02-21-2023 Note HNO ID: [id number] Author: Perry Olivas MD Service: ? Author Type: Physician Type: Progress Notes Filed: 02/21/2023 12:29 PM Note Text: This note was created using VSportoriter. Subjective Marcos Garcia is a 87 year old male. He developed acute on chronic right sided low back pain several days ago, for no particular reason. Tylenol helped only slightly so took him to the ER. He had no other associated symptoms of concern. He went to the ER 02/16/23 and was prescribed Lidoderm which was effective. Review of Systems Constitutional: Negative for fatigue, fever and unexpected weight change. Respiratory: Negative for shortness of breath. Gastrointestinal: Negative for abdominal pain, constipation, diarrhea, nausea and vomiting. Genitourinary: Negative for difficulty urinating. Neurological: Negative. 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 Chronic Kidney Disease, Without Long-Term Current Use of Insulin (Hcc) Primary Osteoarthritis Involving Multiple Joints Essential Hypertension Ashd (Arteriosclerotic Heart Disease) Cardiomyopathy, Ischemic VT (ventricular tachycardia) (HCC) with AICD Bilateral Hearing Loss Neurogenic Claudication Due to Lumbar Spinal Stenosis Obesity, Class I, Bmi 30-34.9 Dermatophytosis of Nail Mood Disorder (Hcc) Gait Disturbance Paroxysmal Atrial Fibrillation (Hcc) Chronic Bilateral Low Back Pain Aortic Stenosis, Moderate History of Covid-19 Current Outpatient Medications Medication Sig lidocaine (LIDODERM) 5 % sertraline (ZOLOFT) 50 mg tablet Take 1 tablet by mouth once daily. albuterol HFA (VENTOLIN HFA) 90 mcg/actuation inhaler Inhale 2 Puffs as instructed every 4 hours as needed for wheezing/shortness of breath. folic acid 1 mg tablet Take 1 tablet by mouth once daily. traMADol (ULTRAM) 50 mg tablet Take 25-50 mg by mouth three times daily as needed. Not started yet Clobetasol Propionate (TEMOVATE) 0.05 % external solution Apply 1 application to affected area once daily. rosuvastatin (CRESTOR) 10 mg tablet Take 10 mg by mouth once daily. Dr. Napier, [facility], Lipidology vit A/vit C/vit E/zinc/copper (PRESERVISION AREDS ORAL) Take 1 tablet by mouth twice daily. apixaban (ELIQUIS) 2.5 mg tab(s) Take 1 tablet by mouth twice daily. furosemide (LASIX) 40 mg tablet Take 2 tablets by mouth every morning AND 1 tablet daily before lunch. sacubitril-valsartan (ENTRESTO) 24-26 mg tablet Take 1 tablet by mouth twice daily. metoprolol succinate ER (TOPROL XL) 25 mg 24 hr tablet Take 1 tablet by mouth once daily. Per Dr. Ibarra. coenzyme Q10 (COENZYME Q-10) 100 mg cap capsule Take 100 mg by mouth once daily. isosorbide mononitrate ER (IMDUR) 60 mg 24 hr tablet Take 60 mg by mouth once daily. nitroglycerin sublingual (NITROSTAT) 0.4 mg SL tablet Dissolve 1 tablet under the tongue as needed for Chest Pain. If no pain relief call 911. Cholecalciferol, Vitamin D3, 2,000 unit cap Take 1 capsule by mouth once daily. aspirin, enteric coated (ADULT LOW DOSE ASPIRIN) 81 mg EC tablet Take 1 tablet by mouth once daily. Istxrmjamxpnp-Voynxslt-Kbvfep (CENTRUM SILVER) Tab Take 1 tablet by mouth once daily. No current facility-administered medications for this visit. Objective BP (P) 100/64 (BP Site: Left Arm, BP Position: Sitting, BP Cuff Size: Large Adult) Pulse (P) 76 Wt (P) 92.5 kg (204 lb) BMI (P) 30.13 kg/m? Physical Exam Constitutional: General: He is not in acute distress. Cardiovascular: Heart sounds: Normal heart sounds. Pulmonary: Effort: Pulmonary effort is normal. No respiratory distress. Breath sounds: Examination of the right-lower field reveals rhonchi. Examination of the left-lower field reveals rhonchi. Rhonchi present. Musculoskeletal: Lumbar back: No deformity, spasms or tenderness. Decreased range of motion. Right lower le+ Pitting Edema present. Left lower le+ Pitting Edema present. Neurological: General: No focal deficit present. Mental Status: He is alert. Comments: Wheelchair bound. Assessment and Plan 1. Lumbar strain, subsequent encounter - ICD9: V58.89, 847.2, ICD10: S39.012D - Continue LIDODERM. Call for refills if needed. Perry Olivas MD [facility] 02-21-2023 History of Present illness Narrative This note was created using [employer]. Subjective Marcos Garcia is a 87 year old male. He developed acute on chronic right sided low back pain several days ago, for no particular reason. Tylenol helped only slightly so took him to the ER. He had no other associated symptoms of concern. He went to the ER 02/16/23 and was prescribed Lidoderm which was effective. Review of Systems Constitutional: Negative for fatigue, fever and unexpected weight change. Respiratory: Negative for shortness of breath. Gastrointestinal: Negative for abdominal pain, constipation, diarrhea, nausea and vomiting. Genitourinary: Negative for difficulty urinating. Neurological: Negative. 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 Chronic Kidney Disease, Without Long-Term Current Use of Insulin (Hcc) Primary Osteoarthritis Involving Multiple Joints Essential Hypertension Ashd (Arteriosclerotic Heart Disease) Cardiomyopathy, Ischemic VT (ventricular tachycardia) ([facility]) with AICD Bilateral Hearing Loss Neurogenic Claudication Due to Lumbar Spinal Stenosis Obesity, Class I, Bmi 30-34.9 Dermatophytosis of Nail Mood Disorder (Hcc) Gait Disturbance Paroxysmal Atrial Fibrillation (Hcc) Chronic Bilateral Low Back Pain Aortic Stenosis, Moderate History of Covid-19 Current Outpatient Medications Medication Sig lidocaine (LIDODERM) 5 % sertraline (ZOLOFT) 50 mg tablet Take 1 tablet by mouth once daily. albuterol HFA (VENTOLIN HFA) 90 mcg/actuation inhaler Inhale 2 Puffs as instructed every 4 hours as needed for wheezing/shortness of breath. folic acid 1 mg tablet Take 1 tablet by mouth once daily. traMADol (ULTRAM) 50 mg tablet Take 25-50 mg by mouth three times daily as needed. Not started yet Clobetasol Propionate (TEMOVATE) 0.05 % external solution Apply 1 application to affected area once daily. rosuvastatin (CRESTOR) 10 mg tablet Take 10 mg by mouth once daily. Dr. Napier, [facility], Lipidology vit A/vit C/vit E/zinc/copper (PRESERVISION AREDS ORAL) Take 1 tablet by mouth twice daily. apixaban (ELIQUIS) 2.5 mg tab(s) Take 1 tablet by mouth twice daily. furosemide (LASIX) 40 mg tablet Take 2 tablets by mouth every morning AND 1 tablet daily before lunch. sacubitril-valsartan (ENTRESTO) 24-26 mg tablet Take 1 tablet by mouth twice daily. metoprolol succinate ER (TOPROL XL) 25 mg 24 hr tablet Take 1 tablet by mouth once daily. Per Dr. Ibarra. coenzyme Q10 (COENZYME Q-10) 100 mg cap capsule Take 100 mg by mouth once daily. isosorbide mononitrate ER (IMDUR) 60 mg 24 hr tablet Take 60 mg by mouth once daily. nitroglycerin sublingual (NITROSTAT) 0.4 mg SL tablet Dissolve 1 tablet under the tongue as needed for Chest Pain. If no pain relief call 911. Cholecalciferol, Vitamin D3, 2,000 unit cap Take 1 capsule by mouth once daily. aspirin, enteric coated (ADULT LOW DOSE ASPIRIN) 81 mg EC tablet Take 1 tablet by mouth once daily. Ctybccxghigmz-Odmoeesx-Bmmsfr (CENTRUM SILVER) Tab Take 1 tablet by mouth once daily. No current facility-administered medications for this visit. Objective BP (P) 100/64 (BP Site: Left Arm, BP Position: Sitting, BP Cuff Size: Large Adult) Pulse (P) 76 Wt (P) 92.5 kg (204 lb) BMI (P) 30.13 kg/m Physical Exam Constitutional: General: He is not in acute distress. Cardiovascular: Heart sounds: Normal heart sounds. Pulmonary: Effort: Pulmonary effort is normal. No respiratory distress. Breath sounds: Examination of the right-lower field reveals rhonchi. Examination of the left-lower field reveals rhonchi. Rhonchi present. Musculoskeletal: Lumbar back: No deformity, spasms or tenderness. Decreased range of motion. Right lower le+ Pitting Edema present. Left lower le+ Pitting Edema present. Neurological: General: No focal deficit present. Mental Status: He is alert. Comments: Wheelchair bound. Assessment and Plan 1. Lumbar strain, subsequent encounter - ICD9: V58.89, 847.2, ICD10: S39.012D - Continue LIDODERM. Call for refills if needed. Perry Olivas MD documented in this encounter [facility] 02-12-2023 Note HNO ID: [id number] Author: Agata Quiles APRN.[employer]ER Service: ? Author Type: Nurse Practitioner Type: Progress Notes Filed: 02/12/2023 11:45 AM Note Text: CC: Patient presents with: follow up - cellulitis HPI Marcos Garcia is a 87 year old male who presents today for above. He was seen last week for urgent care follow-up for non healing ulcer and cellulitis. There had been minimal improvement on Doxycycline however it had only been a few days. Today reports wound is healing and infection seems to have resolved. Still has yellow serous drainage. Denies new or worsening symptoms. REVIEW OF SYSTEMS See HPI PAST MEDICAL HISTORY Diagnosis Date Abscess of intestine Acute myocardial infarction, unspecified site, subsequent episode of care x 2 Aortic stenosis, moderate 04/20/2022 ASHD (arteriosclerotic heart disease) 03/20/2010 Bilateral hearing loss 10/24/2016 Cardiomyopathy, ischemic 05/18/2016 Chronic low back pain with sciatica 05/07/2017 CKD (chronic kidney disease) stage 3, GFR 30-59 ml/min ([facility]) 10/24/2016 DDD (degenerative disc disease), lumbar 10/19/2011 Diabetes mellitus type 2, controlled, without complications ([facility]) 07/25/2005 Diverticulitis of colon (without mention of hemorrhage)(562.11) 04/18/2005 Essential hypertension 03/20/2010 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 Mixed hyperlipidemia 04/18/2005 Neurogenic claudication due to lumbar spinal stenosis 05/01/2017 Other psoriasis 04/18/2005 Paroxysmal atrial fibrillation (HCC) 05/06/2020 Polymyalgia rheumatica (HCC) Primary osteoarthritis involving multiple joints 07/25/2005 Unspecified hemorrhoids with other complication VT (ventricular tachycardia) (HCC) with AICD 07/24/2017 AICD PAST SURGICAL HISTORY Procedure Laterality Date COLONOSCOPY 07/14/2003 COLONOSCOPY FLX DX W/COLLJ SPEC WHEN PFRMD 08/27/2013 Colonoscopy CORONARY STENT EA VESSEL 08/01/2017 ALAN mid RCA, balloon angioplasty distal RCA 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 1995. 2002. PAST SURGICAL HISTORY OF 08/2001 Arthroscopy Right Shoulder PAST SURGICAL HISTORY OF 08/08/2004 Right CTR PAST SURGICAL HISTORY OF 08/24/2004 Left CTR STENT - CORONARY 07/04/2017 ALAN x 3 to LAD, ALAN x 1 prox. OM1. (4 stents) ALLERGIES Accupril [Quinapril Hcl], Diovan [Valsartan], Biaxin [Clarithromycin], Crestor [Rosuvastatin Calcium], Lipitor [Atorvastatin Calcium], Pravachol [Pravastatin Sodium], Vytorin 04/09 [Ezetimibe-Simvastatin], Zyrtec [Cetirizine Hcl], Avapro [Irbesartan], Benicar [Olmesartan Medoxomil], Chlorthalidone, Lovaza [Glasgow-3 Acid Ethyl Esters], Metoprolol, Red Yeast Rice, and Zetia [Ezetimibe] MEDICATIONS sertraline (ZOLOFT) 50 mg tablet Take 1 tablet by mouth once daily. doxycycline (VIBRA-TABS) 100 mg tablet Take 1 tablet by mouth twice daily for 10 days. albuterol HFA (VENTOLIN HFA) 90 mcg/actuation inhaler Inhale 2 Puffs as instructed every 4 hours as needed for wheezing/shortness of breath. folic acid 1 mg tablet Take 1 tablet by mouth once daily. traMADol (ULTRAM) 50 mg tablet Take 25-50 mg by mouth three times daily as needed. Not started yet Clobetasol Propionate (TEMOVATE) 0.05 % external solution Apply 1 application to affected area once daily. rosuvastatin (CRESTOR) 10 mg tablet Take 10 mg by mouth once daily. [place], Lipidology vit A/vit C/vit E/zinc/copper (PRESERVISION AREDS ORAL) Take 1 tablet by mouth twice daily. apixaban (ELIQUIS) 2.5 mg tab(s) Take 1 tablet by mouth twice daily. furosemide (LASIX) 40 mg tablet Take 2 tablets by mouth every morning AND 1 tablet daily before lunch. sacubitril-valsartan (ENTRESTO) 24-26 mg tablet Take 1 tablet by mouth twice daily. metoprolol succinate ER (TOPROL XL) 25 mg 24 hr tablet Take 1 tablet by mouth once daily. Per Dr. Ibarra. coenzyme Q10 (COENZYME Q-10) 100 mg cap capsule Take 100 mg by mouth once daily. isosorbide mononitrate ER (IMDUR) 60 mg 24 hr tablet Take 60 mg by mouth once daily. nitroglycerin sublingual (NITROSTAT) 0.4 mg SL tablet Dissolve 1 tablet under the tongue as needed for Chest Pain. If no pain relief call 911. Cholecalciferol, Vitamin D3, 2,000 unit cap Take 1 capsule by mouth once daily. aspirin, enteric coated (ADULT LOW DOSE ASPIRIN) 81 mg EC tablet Take 1 tablet by mouth once daily. Bndduraecyoog-Czwipwtu-Bxfzmf (CENTRUM SILVER) Tab Take 1 tablet by mouth once daily. FAMILY HISTORY Problem Relation Age of Onset Diabetes Mother Arthritis Mother Breast Cancer Sister Social History Tobacco Use Smoking status: Former Packs/day: 0.50 Years: 30.00 Additional pack years: 0.00 Total pack years: 15.00 Types: Cigarettes Start date: 07/01/1957 Quit date: 07/01/1987 Years since quittin.6 Smokeless tobacco: Never Vaping Use Vaping Use: Never used Substance Use Topics Alcohol use: Yes (more content not included)... [facility] 02-12-2023 History of Present illness Narrative CC: Patient presents with: follow up - cellulitis HPI Marcos Garcia is a 87 year old male who presents today for above. He was seen last week for urgent care follow-up for non healing ulcer and cellulitis. There had been minimal improvement on Doxycycline however it had only been a few days. Today reports wound is healing and infection seems to have resolved. Still has yellow serous drainage. Denies new or worsening symptoms. REVIEW OF SYSTEMS See HPI PAST MEDICAL HISTORY Diagnosis Date Abscess of intestine Acute myocardial infarction, unspecified site, subsequent episode of care x 2 Aortic stenosis, moderate 04/20/2022 ASHD (arteriosclerotic heart disease) 03/20/2010 Bilateral hearing loss 10/24/2016 Cardiomyopathy, ischemic 05/18/2016 Chronic low back pain with sciatica 05/07/2017 CKD (chronic kidney disease) stage 3, GFR 30-59 ml/min ([facility]) 10/24/2016 DDD (degenerative disc disease), lumbar 10/19/2011 Diabetes mellitus type 2, controlled, without complications ([facility]) 07/25/2005 Diverticulitis of colon (without mention of hemorrhage)(562.11) 04/18/2005 Essential hypertension 03/20/2010 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 Mixed hyperlipidemia 04/18/2005 Neurogenic claudication due to lumbar spinal stenosis 05/01/2017 Other psoriasis 04/18/2005 Paroxysmal atrial fibrillation (HCC) 05/06/2020 Polymyalgia rheumatica ([facility]) Primary osteoarthritis involving multiple joints 07/25/2005 Unspecified hemorrhoids with other complication VT (ventricular tachycardia) ([facility]) with AICD 07/24/2017 AICD PAST SURGICAL HISTORY Procedure Laterality Date COLONOSCOPY 07/14/2003 COLONOSCOPY FLX DX W/COLLJ SPEC WHEN PFRMD 08/27/2013 Colonoscopy CORONARY STENT EA VESSEL 08/01/2017 ALAN mid RCA, balloon angioplasty distal RCA 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 1995. 2002. PAST SURGICAL HISTORY OF 08/2001 Arthroscopy Right Shoulder PAST SURGICAL HISTORY OF 08/08/2004 Right CTR PAST SURGICAL HISTORY OF 08/24/2004 Left CTR STENT - CORONARY 07/04/2017 ALAN x 3 to LAD, ALAN x 1 prox. OM1. (4 stents) ALLERGIES Accupril [Quinapril Hcl], Diovan [Valsartan], Biaxin [Clarithromycin], Crestor [Rosuvastatin Calcium], Lipitor [Atorvastatin Calcium], Pravachol [Pravastatin Sodium], Vytorin 10/10 [Ezetimibe-Simvastatin], Zyrtec [Cetirizine Hcl], Avapro [Irbesartan], Benicar [Olmesartan Medoxomil], Chlorthalidone, Lovaza [Glasgow-3 Acid Ethyl Esters], Metoprolol, Red Yeast Rice, and Zetia [Ezetimibe] MEDICATIONS sertraline (ZOLOFT) 50 mg tablet Take 1 tablet by mouth once daily. doxycycline (VIBRA-TABS) 100 mg tablet Take 1 tablet by mouth twice daily for 10 days. albuterol HFA (VENTOLIN HFA) 90 mcg/actuation inhaler Inhale 2 Puffs as instructed every 4 hours as needed for wheezing/shortness of breath. folic acid 1 mg tablet Take 1 tablet by mouth once daily. traMADol (ULTRAM) 50 mg tablet Take 25-50 mg by mouth three times daily as needed. Not started yet Clobetasol Propionate (TEMOVATE) 0.05 % external solution Apply 1 application to affected area once daily. rosuvastatin (CRESTOR) 10 mg tablet Take 10 mg by mouth once daily. Dr. Napier, [facility], Lipidology vit A/vit C/vit E/zinc/copper (PRESERVISION AREDS ORAL) Take 1 tablet by mouth twice daily. apixaban (ELIQUIS) 2.5 mg tab(s) Take 1 tablet by mouth twice daily. furosemide (LASIX) 40 mg tablet Take 2 tablets by mouth every morning AND 1 tablet daily before lunch. sacubitril-valsartan (ENTRESTO) 24-26 mg tablet Take 1 tablet by mouth twice daily. metoprolol succinate ER (TOPROL XL) 25 mg 24 hr tablet Take 1 tablet by mouth once daily. Per Dr. Ibarra. coenzyme Q10 (COENZYME Q-10) 100 mg cap capsule Take 100 mg by mouth once daily. isosorbide mononitrate ER (IMDUR) 60 mg 24 hr tablet Take 60 mg by mouth once daily. nitroglycerin sublingual (NITROSTAT) 0.4 mg SL tablet Dissolve 1 tablet under the tongue as needed for Chest Pain. If no pain relief call 911. Cholecalciferol, Vitamin D3, 2,000 unit cap Take 1 capsule by mouth once daily. aspirin, enteric coated (ADULT LOW DOSE ASPIRIN) 81 mg EC tablet Take 1 tablet by mouth once daily. Dfkhisaifmwwa-Ubbghfbv-Rtukmz (CENTRUM SILVER) Tab Take 1 tablet by mouth once daily. FAMILY HISTORY Problem Relation Age of Onset Diabetes Mother Arthritis Mother Breast Cancer Sister Social History Tobacco Use Smoking status: Former Packs/day: 0.50 Years: 30.00 Additional pack years: 0.00 Total pack years: 15.00 Types: Cigarettes Start date: 07/01/1957 Quit date: 07/01/1987 Years since quittin.6 Smokeless tobacco: Never Vaping Use Vaping Use: Never used Substance Use Topics Alcohol use: Yes Comment: rare wine. Drug use: No PHYSICAL EXAM BP 110/74 Pulse 70 Temp 36.3 C (97.4 F) (Temporal) Resp 18 SpO2 96% General Appearance: well appearing, in no acute distress, alert Left lower leg- ulcer partially covered with granulation tissue, remaining wound bed pink. Scant amount of serous drainage. Surrounding erythema and increased warmth resolved. ASSESSMENT/PLAN: 1. Cellulitis of skin - ICD9: 682.9, ICD10: L03.90 (primary diagnosis) Resolved, complete course of Doxycycline with last dose tomorrow. 2. Delayed wound healing - ICD9: 879.9, ICD10: T14.8XXD Follow-up with wound center as scheduled Prescription instructions reviewed with patient as applicable. Potential red flag symptoms discussed with the patient. Reviewed appropriate action plan to take if red flag symptoms occur. Patient agreeable to treatment plan. Agata Quiles APRN.KELSI documented in this encounter [facility] 02-06-2023 Miscellaneous Notes Left another message for patient with results and recommendations.Qi Otoole LPN Left message for pt to return call. Ronit Ervin LPN Wound culture reveals Moderate Staphylococcus aureus Abnormal He can continue taking the Doxy as it is appropriate. Follow up with PCP and/or wound care. Please advise patient. documented in this encounter [facility] 02-06-2023 Note HNO ID: [id number] Author: Agata Quiles APRN.KELSI Service: ? Author Type: Nurse Practitioner Type: Progress Notes Filed: 02/06/2023 12:42 PM Note Text: CC: Patient presents with: follow up - cellulitis HPI Marcos Garcia is a 87 year old male who presents today for above. Patient was seen in urgent care on 02/03 for non-healing wound to the left lower leg x 6 weeks. Noted increased redness, pain and drainage. Treated with Doxycycline for infection, wound culture showing susceptibility . Today patient's reports no change in wound appearance or redness. Still has thick yellow drainage. No new or worsening symptoms. REVIEW OF SYSTEMS See HPI PAST MEDICAL HISTORY Diagnosis Date Abscess of intestine Acute myocardial infarction, unspecified site, subsequent episode of care x 2 Aortic stenosis, moderate 04/20/2022 ASHD (arteriosclerotic heart disease) 03/20/2010 Bilateral hearing loss 10/24/2016 Cardiomyopathy, ischemic 05/18/2016 Chronic low back pain with sciatica 05/07/2017 CKD (chronic kidney disease) stage 3, GFR 30-59 ml/min ([facility]) 10/24/2016 DDD (degenerative disc disease), lumbar 10/19/2011 Diabetes mellitus type 2, controlled, without complications ([facility]) 07/25/2005 Diverticulitis of colon (without mention of hemorrhage)(562.11) 04/18/2005 Essential hypertension 03/20/2010 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 Mixed hyperlipidemia 04/18/2005 Neurogenic claudication due to lumbar spinal stenosis 05/01/2017 Other psoriasis 04/18/2005 Paroxysmal atrial fibrillation (HCC) 05/06/2020 Polymyalgia rheumatica ([facility]) Primary osteoarthritis involving multiple joints 07/25/2005 Unspecified hemorrhoids with other complication VT (ventricular tachycardia) ([facility]) with AICD 07/24/2017 AICD PAST SURGICAL HISTORY Procedure Laterality Date COLONOSCOPY 07/14/2003 COLONOSCOPY FLX DX W/COLLJ SPEC WHEN PFRMD 08/27/2013 Colonoscopy CORONARY STENT EA VESSEL 08/01/2017 ALAN mid RCA, balloon angioplasty distal RCA 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 1996. 2002. PAST SURGICAL HISTORY OF 08/2001 Arthroscopy Right Shoulder PAST SURGICAL HISTORY OF 08/08/2004 Right CTR PAST SURGICAL HISTORY OF 08/24/2004 Left CTR STENT - CORONARY 07/04/2017 ALAN x 3 to LAD, ALAN x 1 prox. OM1. (4 stents) ALLERGIES Accupril [Quinapril Hcl], Diovan [Valsartan], Biaxin [Clarithromycin], Crestor [Rosuvastatin Calcium], Lipitor [Atorvastatin Calcium], Pravachol [Pravastatin Sodium], Vytorin 04/09 [Ezetimibe-Simvastatin], Zyrtec [Cetirizine Hcl], Avapro [Irbesartan], Benicar [Olmesartan Medoxomil], Chlorthalidone, Lovaza [Glasgow-3 Acid Ethyl Esters], Metoprolol, Red Yeast Rice, and Zetia [Ezetimibe] MEDICATIONS sertraline (ZOLOFT) 50 mg tablet Take 1 tablet by mouth once daily. doxycycline (VIBRA-TABS) 100 mg tablet Take 1 tablet by mouth twice daily for 10 days. albuterol HFA (VENTOLIN HFA) 90 mcg/actuation inhaler Inhale 2 Puffs as instructed every 4 hours as needed for wheezing/shortness of breath. folic acid 1 mg tablet Take 1 tablet by mouth once daily. traMADol (ULTRAM) 50 mg tablet Take 25-50 mg by mouth three times daily as needed. Not started yet Clobetasol Propionate (TEMOVATE) 0.05 % external solution Apply 1 application to affected area once daily. rosuvastatin (CRESTOR) 10 mg tablet Take 10 mg by mouth once daily. Dr. Napier, [facility], Lipidology vit A/vit C/vit E/zinc/copper (PRESERVISION AREDS ORAL) Take 1 tablet by mouth twice daily. apixaban (ELIQUIS) 2.5 mg tab(s) Take 1 tablet by mouth twice daily. furosemide (LASIX) 40 mg tablet Take 2 tablets by mouth every morning AND 1 tablet daily before lunch. sacubitril-valsartan (ENTRESTO) 24-26 mg tablet Take 1 tablet by mouth twice daily. metoprolol succinate ER (TOPROL XL) 25 mg 24 hr tablet Take 1 tablet by mouth once daily. Per Dr. Ibarra. coenzyme Q10 (COENZYME Q-10) 100 mg cap capsule Take 100 mg by mouth once daily. isosorbide mononitrate ER (IMDUR) 60 mg 24 hr tablet Take 60 mg by mouth once daily. nitroglycerin sublingual (NITROSTAT) 0.4 mg SL tablet Dissolve 1 tablet under the tongue as needed for Chest Pain. If no pain relief call 911. Cholecalciferol, Vitamin D3, 2,000 unit cap Take 1 capsule by mouth once daily. aspirin, enteric coated (ADULT LOW DOSE ASPIRIN) 81 mg EC tablet Take 1 tablet by mouth once daily. Pfopmzxusfnwn-Ethayeiq-Vdxeav (CENTRUM SILVER) Tab Take 1 tablet by mouth once daily. FAMILY HISTORY Problem Relation Age of Onset Diabetes Mother Arthritis Mother Breast Cancer Sister Social History Tobacco Use Smoking status: Former Packs/day: 0.50 Years: 30.00 Total pack years: 15.00 Types: Cigarettes Start date: 07/01/1957 Quit date: 07/01/1987 Years since quittin.6 Smokeless tobacco: Never Vaping Use Vaping Use: Never used Substance Use Topics Alcohol use (more content not included)... [facility] 02-06-2023 History of Present illness Narrative Images from the original note were not included. CC: Patient presents with: follow up - cellulitis HPI Marcos Garcia is a 87 year old male who presents today for above. Patient was seen in urgent care on 02/03 for non-healing wound to the left lower leg x 6 weeks. Noted increased redness, pain and drainage. Treated with Doxycycline for infection, wound culture showing susceptibility . Today patient's reports no change in wound appearance or redness. Still has thick yellow drainage. No new or worsening symptoms. REVIEW OF SYSTEMS See HPI PAST MEDICAL HISTORY Diagnosis Date Abscess of intestine Acute myocardial infarction, unspecified site, subsequent episode of care x 2 Aortic stenosis, moderate 04/20/2022 ASHD (arteriosclerotic heart disease) 03/20/2010 Bilateral hearing loss 10/24/2016 Cardiomyopathy, ischemic 05/18/2016 Chronic low back pain with sciatica 05/07/2017 CKD (chronic kidney disease) stage 3, GFR 30-59 ml/min ([facility]) 10/24/2016 DDD (degenerative disc disease), lumbar 10/19/2011 Diabetes mellitus type 2, controlled, without complications (HCC) 07/25/2005 Diverticulitis of colon (without mention of hemorrhage)(562.11) 04/18/2005 Essential hypertension 03/20/2010 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 Mixed hyperlipidemia 04/18/2005 Neurogenic claudication due to lumbar spinal stenosis 05/01/2017 Other psoriasis 04/18/2005 Paroxysmal atrial fibrillation (HCC) 05/06/2020 Polymyalgia rheumatica ([facility]) Primary osteoarthritis involving multiple joints 07/25/2005 Unspecified hemorrhoids with other complication VT (ventricular tachycardia) ([facility]) with AICD 07/24/2017 AICD PAST SURGICAL HISTORY Procedure Laterality Date COLONOSCOPY 07/14/2003 COLONOSCOPY FLX DX W/COLLJ SPEC WHEN PFRMD 08/27/2013 Colonoscopy CORONARY STENT EA VESSEL 08/01/2017 ALAN mid RCA, balloon angioplasty distal RCA 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 1995. 2002. PAST SURGICAL HISTORY OF 08/2001 Arthroscopy Right Shoulder PAST SURGICAL HISTORY OF 08/08/2004 Right CTR PAST SURGICAL HISTORY OF 08/24/2004 Left CTR STENT - CORONARY 07/04/2017 ALAN x 3 to LAD, ALAN x 1 prox. OM1. (4 stents) ALLERGIES Accupril [Quinapril Hcl], Diovan [Valsartan], Biaxin [Clarithromycin], Crestor [Rosuvastatin Calcium], Lipitor [Atorvastatin Calcium], Pravachol [Pravastatin Sodium], Vytorin 04/09 [Ezetimibe-Simvastatin], Zyrtec [Cetirizine Hcl], Avapro [Irbesartan], Benicar [Olmesartan Medoxomil], Chlorthalidone, Lovaza [Glasgow-3 Acid Ethyl Esters], Metoprolol, Red Yeast Rice, and Zetia [Ezetimibe] MEDICATIONS sertraline (ZOLOFT) 50 mg tablet Take 1 tablet by mouth once daily. doxycycline (VIBRA-TABS) 100 mg tablet Take 1 tablet by mouth twice daily for 10 days. albuterol HFA (VENTOLIN HFA) 90 mcg/actuation inhaler Inhale 2 Puffs as instructed every 4 hours as needed for wheezing/shortness of breath. folic acid 1 mg tablet Take 1 tablet by mouth once daily. traMADol (ULTRAM) 50 mg tablet Take 25-50 mg by mouth three times daily as needed. Not started yet Clobetasol Propionate (TEMOVATE) 0.05 % external solution Apply 1 application to affected area once daily. rosuvastatin (CRESTOR) 10 mg tablet Take 10 mg by mouth once daily. Dr. Napier, [facility], Lipidology vit A/vit C/vit E/zinc/copper (PRESERVISION AREDS ORAL) Take 1 tablet by mouth twice daily. apixaban (ELIQUIS) 2.5 mg tab(s) Take 1 tablet by mouth twice daily. furosemide (LASIX) 40 mg tablet Take 2 tablets by mouth every morning AND 1 tablet daily before lunch. sacubitril-valsartan (ENTRESTO) 24-26 mg tablet Take 1 tablet by mouth twice daily. metoprolol succinate ER (TOPROL XL) 25 mg 24 hr tablet Take 1 tablet by mouth once daily. Per Dr. Ibarra. coenzyme Q10 (COENZYME Q-10) 100 mg cap capsule Take 100 mg by mouth once daily. isosorbide mononitrate ER (IMDUR) 60 mg 24 hr tablet Take 60 mg by mouth once daily. nitroglycerin sublingual (NITROSTAT) 0.4 mg SL tablet Dissolve 1 tablet under the tongue as needed for Chest Pain. If no pain relief call 911. Cholecalciferol, Vitamin D3, 2,000 unit cap Take 1 capsule by mouth once daily. aspirin, enteric coated (ADULT LOW DOSE ASPIRIN) 81 mg EC tablet Take 1 tablet by mouth once daily. Nyzhrrdgingcu-Jyqftnqd-Nrwltg (CENTRUM SILVER) Tab Take 1 tablet by mouth once daily. FAMILY HISTORY Problem Relation Age of Onset Diabetes Mother Arthritis Mother Breast Cancer Sister Social History Tobacco Use Smoking status: Former Packs/day: 0.50 Years: 30.00 Total pack years: 15.00 Types: Cigarettes Start date: 07/01/1957 Quit date: 07/01/1987 Years since quittin.6 Smokeless tobacco: Never Vaping Use Vaping Use: Never used Substance Use Topics Alcohol use: Yes Comment: rare wine. Drug use: No BP 114/72 Pulse 71 Temp 36.6 C (97.8 F) (Temporal) Resp 20 SpO2 97% Physical Exam Constitutional: General: He is not in acute distress. Appearance: He is not ill-appearing or toxic-appearing. Skin: DATA REVIEWED: wound culture results ASSESSMENT/PLAN: 1. Cellulitis of skin - ICD9: 682.9, ICD10: L03.90 (primary diagnosis) No change in wound appearance. Wound culture confirmed Doxycycline susceptibility - Continue treatment with Doxycycline - No lymphangetic streaking, this was defined for patient to watch for and to seek medical care immediately if appears - Area of cellulitis defined with pen, seek further attention if this area continues to enlarge - Follow up for recheck in three days 2. Non-healing wound of left lower extremity - ICD9: 894.1, ICD10: S81.802A Multifactorial including venous insufficiency, obesity, advanced age. Will fax order to [facility] wound center for treatment. Prescription instructions reviewed with patient as applicable. Potential red flag symptoms discussed with the patient. Reviewed appropriate action plan to take if red flag symptoms occur. Patient agreeable to treatment plan. Agata Quiles APRN.CNP documented in this encounter [facility] 02-03-2023 Note HNO ID: [id number] Author: Elda Glass PA-C Service: ? Author Type: Physician Journal Entry Audit Clerk Type: Progress Notes Filed: 02/03/2023 2:48 PM Note Text: This note was created using VSportoriter. Subjective Marcos Garcia is a 87 year old male. HPI Presents with a wound on his left lower leg over the past 1 and half months. His has been bandaging it at home. The past week she has gotten drainage from it and it seems more red so she brought him in for evaluation. No fever. He states he does get pain off and on in the leg. The patient had seen wound care before but his had some medical problems so they stopped going. Review of Systems Constitutional: Negative for fever. Musculoskeletal: Nonhealing wound left lower leg, redness and drainage All other systems reviewed and are negative. PAST MEDICAL HISTORY Diagnosis Date Abscess of intestine Acute myocardial infarction, unspecified site, subsequent episode of care x 2 Aortic stenosis, moderate 04/20/2022 ASHD (arteriosclerotic heart disease) 03/20/2010 Bilateral hearing loss 10/24/2016 Cardiomyopathy, ischemic 05/18/2016 Chronic low back pain with sciatica 05/07/2017 CKD (chronic kidney disease) stage 3, GFR 30-59 ml/min ([facility]) 10/24/2016 DDD (degenerative disc disease), lumbar 10/19/2011 Diabetes mellitus type 2, controlled, without complications ([facility]) 07/25/2005 Diverticulitis of colon (without mention of hemorrhage)(562.11) 04/18/2005 Essential hypertension 03/20/2010 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 Mixed hyperlipidemia 04/18/2005 Neurogenic claudication due to lumbar spinal stenosis 05/01/2017 Other psoriasis 04/18/2005 Paroxysmal atrial fibrillation ([facility]) 05/06/2020 Polymyalgia rheumatica ([facility]) Primary osteoarthritis involving multiple joints 07/25/2005 Unspecified hemorrhoids with other complication VT (ventricular tachycardia) ([facility]) with AICD 07/24/2017 AICD Current Outpatient Medications Medication Sig Dispense Refill sertraline (ZOLOFT) 50 mg tablet Take 1 tablet by mouth once daily. 90 tablet 3 albuterol HFA (VENTOLIN HFA) 90 mcg/actuation inhaler Inhale 2 Puffs as instructed every 4 hours as needed for wheezing/shortness of breath. 1 Each 0 folic acid 1 mg tablet Take 1 tablet by mouth once daily. 90 tablet 3 traMADol (ULTRAM) 50 mg tablet Take 25-50 mg by mouth three times daily as needed. Not started yet Clobetasol Propionate (TEMOVATE) 0.05 % external solution Apply 1 application to affected area once daily. rosuvastatin (CRESTOR) 10 mg tablet Take 10 mg by mouth once daily. Dr. Napier, [facility], Lipidology vit A/vit C/vit E/zinc/copper (PRESERVISION AREDS ORAL) Take 1 tablet by mouth twice daily. apixaban (ELIQUIS) 2.5 mg tab(s) Take 1 tablet by mouth twice daily. furosemide (LASIX) 40 mg tablet Take 2 tablets by mouth every morning AND 1 tablet daily before lunch. sacubitril-valsartan (ENTRESTO) 24-26 mg tablet Take 1 tablet by mouth twice daily. metoprolol succinate ER (TOPROL XL) 25 mg 24 hr tablet Take 1 tablet by mouth once daily. Per Dr. Ibarra. coenzyme Q10 (COENZYME Q-10) 100 mg cap capsule Take 100 mg by mouth once daily. isosorbide mononitrate ER (IMDUR) 60 mg 24 hr tablet Take 60 mg by mouth once daily. nitroglycerin sublingual (NITROSTAT) 0.4 mg SL tablet Dissolve 1 tablet under the tongue as needed for Chest Pain. If no pain relief call 911. 25 tablet 3 Cholecalciferol, Vitamin D3, 2,000 unit cap Take 1 capsule by mouth once daily. aspirin, enteric coated (ADULT LOW DOSE ASPIRIN) 81 mg EC tablet Take 1 tablet by mouth once daily. 0 Cvseqbxrrmkyi-Lprhhoeo-Ygzksi (CENTRUM SILVER) Tab Take 1 tablet by mouth once daily. 0 doxycycline (VIBRA-TABS) 100 mg tablet Take 1 tablet by mouth twice daily for 10 days. 20 tablet 0 No current facility-administered medications for this visit. 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 1996. 2002. PAST SURGICAL HISTORY OF 08/2001 Arthroscopy Right Shoulder PAST SURGICAL HISTORY OF 08/08/2004 Right CTR PAST SURGICAL HISTORY OF 08/24/2004 Left CTR STENT - CORONARY 07/04/2017 ALAN x 3 to LAD, ALAN x 1 prox. OM1. (4 stents) FAMILY HISTORY Problem Relation Age of Onset Diabetes Mother Arthritis Mother Breast Cancer Sister Social History Tobacco Use Smoking status: Former Packs/day: 0.50 Years: 30.00 Total pack years: 15.00 Types: Cigarettes Start date: 07/01/1957 Quit date: 07/01/1987 Years since quittin.6 Smokeless tobacco: Never Vaping Use Vaping Use: Never used Substance Use Topics Alcohol use: Yes Comment: rare wine. Drug use: No Objective BP 112/78 Pu (more content not included)... [facility] 02-03-2023 History of Present illness Narrative Images from the original note were not included. This note was created using VSportoriter. Subjective Marcos Garcia is a 87 year old male. HPI Presents with a wound on his left lower leg over the past 1 and half months. His has been bandaging it at home. The past week she has gotten drainage from it and it seems more red so she brought him in for evaluation. No fever. He states he does get pain off and on in the leg. The patient had seen wound care before but his had some medical problems so they stopped going. Review of Systems Constitutional: Negative for fever. Musculoskeletal: Nonhealing wound left lower leg, redness and drainage All other systems reviewed and are negative. PAST MEDICAL HISTORY Diagnosis Date Abscess of intestine Acute myocardial infarction, unspecified site, subsequent episode of care x 2 Aortic stenosis, moderate 04/20/2022 ASHD (arteriosclerotic heart disease) 03/20/2010 Bilateral hearing loss 10/24/2016 Cardiomyopathy, ischemic 05/18/2016 Chronic low back pain with sciatica 05/07/2017 CKD (chronic kidney disease) stage 3, GFR 30-59 ml/min ([facility]) 10/24/2016 DDD (degenerative disc disease), lumbar 10/19/2011 Diabetes mellitus type 2, controlled, without complications ([facility]) 07/25/2005 Diverticulitis of colon (without mention of hemorrhage)(562.11) 04/18/2005 Essential hypertension 03/20/2010 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 90 tablet 3 albuterol HFA (VENTOLIN HFA) 90 mcg/actuation inhaler Inhale 2 Puffs as instructed every 4 hours as needed for wheezing/shortness of breath. 1 Each 0 folic acid 1 mg tablet Take 1 tablet by mouth once daily. 90 tablet 3 traMADol (ULTRAM) 50 mg tablet Take 25-50 mg by mouth three times daily as needed. Not started yet Clobetasol Propionate (TEMOVATE) 0.05 % external solution Apply 1 application to affected area once daily. rosuvastatin (CRESTOR) 10 mg tablet Take 10 mg by mouth once daily. Dr. Napier, [facility], Lipidology vit A/vit C/vit E/zinc/copper (PRESERVISION AREDS ORAL) Take 1 tablet by mouth twice daily. apixaban (ELIQUIS) 2.5 mg tab(s) Take 1 tablet by mouth twice daily. furosemide (LASIX) 40 mg tablet Take 2 tablets by mouth every morning AND 1 tablet daily before lunch. sacubitril-valsartan (ENTRESTO) 24-26 mg tablet Take 1 tablet by mouth twice daily. metoprolol succinate ER (TOPROL XL) 25 mg 24 hr tablet Take 1 tablet by mouth once daily. Per Dr. Ibarra. coenzyme Q10 (COENZYME Q-10) 100 mg cap capsule Take 100 mg by mouth once daily. isosorbide mononitrate ER (IMDUR) 60 mg 24 hr tablet Take 60 mg by mouth once daily. nitroglycerin sublingual (NITROSTAT) 0.4 mg SL tablet Dissolve 1 tablet under the tongue as needed for Chest Pain. If no pain relief call 911. 25 tablet 3 Cholecalciferol, Vitamin D3, 2,000 unit cap Take 1 capsule by mouth once daily. aspirin, enteric coated (ADULT LOW DOSE ASPIRIN) 81 mg EC tablet Take 1 tablet by mouth once daily. 0 Kjqmkuodyszhs-Qsfnxecw-Otmpuu (CENTRUM SILVER) Tab Take 1 tablet by mouth once daily. 0 doxycycline (VIBRA-TABS) 100 mg tablet Take 1 tablet by mouth twice daily for 10 days. 20 tablet 0 No current facility-administered medications for this visit. 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 1995. 2002. PAST SURGICAL HISTORY OF 08/2001 Arthroscopy Right Shoulder PAST SURGICAL HISTORY OF 08/08/2004 Right CTR PAST SURGICAL HISTORY OF 08/24/2004 Left CTR STENT - CORONARY 07/04/2017 ALAN x 3 to LAD, ALAN x 1 prox. OM1. (4 stents) FAMILY HISTORY Problem Relation Age of Onset Diabetes Mother Arthritis Mother Breast Cancer Sister Social History Tobacco Use Smoking status: Former Packs/day: 0.50 Years: 30.00 Total pack years: 15.00 Types: Cigarettes Start date: 07/01/1957 Quit date: 07/01/1987 Years since quittin.6 Smokeless tobacco: Never Vaping Use Vaping Use: Never used Substance Use Topics Alcohol use: Yes Comment: rare wine. Drug use: No Objective BP 112/78 Pulse 70 Temp 36.6 C (97.9 F) Resp 21 Wt 93.3 kg (205 lb 9.6 oz) SpO2 99% BMI 30.36 kg/m Physical Exam Vitals reviewed. Constitutional: Appearance: Normal appearance. HENT: Head: Normocephalic and atraumatic. Musculoskeletal: Legs: Comments: Patient has a large wet appearing ulcer to the medial lower left leg with surrounding erythema. No lymphangitic streaking. Some peripheral edema noted. Pedal pulses 1+. Skin: General: Skin is warm and dry. Neurological: Mental Status: He is alert. Assessment and Plan ASSESSMENT/PLAN: 1. Non-healing wound of left lower extremity - ICD9: 894.1, ICD10: S81.802A (primary diagnosis) Wound culture obtained. I will start him on doxycycline. We will have him have close follow-up with PCP to ensure it is improving. Patient may need to follow back up with the wound care center. Patient and agreeable with plan. 2. Cellulitis of skin - ICD9: 682.9, ICD10: L03.90 Elda Glass PA-C documented in this encounter [facility] 02-01-2023 Miscellaneous Notes Patient has been identified by name and date of : Yes Last office visit in this department: 01/28/2023 Labs-09/11/22 NOV-03/27/23 RX INSTRUCTIONS: Patient aware RX will be sent to pharmacy. No need to notify patient. Patient phones requesting refills as follows: Requested Prescriptions Pending Prescriptions Disp Refills sertraline (ZOLOFT) 50 mg tablet 90 tablet 3 Sig: Take 1 tablet by mouth once daily. Please review and advise. Eugenie Garcai Pss documented in this encounter [facility] 01-29-2023 Note HNO ID: [id number] Author: Italo Eason MD Service: ? Author Type: Physician Type: Progress Notes Filed: 01/29/2023 1:30 PM Note Text: HISTORY AND PHYSICAL Marcos Garcia 1935 REFERRING PHYSICIAN: Perry Olivas MD CHIEF COMPLAINT: Consult (Perianal hematoma s/p fall.) HPI: The patient is a 87 year old male with a complaint of Perianal hematoma. noted a bruised area near the tailbone this weekend. They had gone down to [place] Saturday, and he told her he fell off his chair while there. He denied any unusual pain or fever. The patient is being seen by me today at the request of Perry Guzman MD for my opinion and advice regarding Perianal hematoma. PAST MEDICAL HISTORY Diagnosis Date Abscess of intestine Acute myocardial infarction, unspecified site, subsequent episode of care x 2 Aortic stenosis, moderate 04/20/2022 ASHD (arteriosclerotic heart disease) 03/20/2010 Bilateral hearing loss 10/24/2016 Cardiomyopathy, ischemic 05/18/2016 Chronic low back pain with sciatica 05/07/2017 CKD (chronic kidney disease) stage 3, GFR 30-59 ml/min ([facility]) 10/24/2016 DDD (degenerative disc disease), lumbar 10/19/2011 Diabetes mellitus type 2, controlled, without complications ([facility]) 07/25/2005 Diverticulitis of colon (without mention of hemorrhage)(562.11) 04/18/2005 Essential hypertension 03/20/2010 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 Mixed hyperlipidemia 04/18/2005 Neurogenic claudication due to lumbar spinal stenosis 05/01/2017 Other psoriasis 04/18/2005 Paroxysmal atrial fibrillation (HCC) 05/06/2020 Polymyalgia rheumatica (HCC) Primary osteoarthritis involving multiple joints 07/25/2005 Unspecified hemorrhoids with other complication VT (ventricular tachycardia) (HCC) with AICD 07/24/2017 AICD PAST SURGICAL HISTORY Procedure Laterality Date COLONOSCOPY 07/14/2003 COLONOSCOPY FLX DX W/COLLJ SPEC WHEN PFRMD 08/27/2013 Colonoscopy CORONARY STENT EA VESSEL 08/01/2017 ALAN mid RCA, balloon angioplasty distal RCA 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 1996. 2002. PAST SURGICAL HISTORY OF 08/2001 Arthroscopy Right Shoulder PAST SURGICAL HISTORY OF 08/08/2004 Right CTR PAST SURGICAL HISTORY OF 08/24/2004 Left CTR STENT - CORONARY 07/04/2017 ALAN x 3 to LAD, ALAN x 1 prox. OM1. (4 stents) Current Outpatient Medications Medication Sig albuterol HFA (VENTOLIN HFA) 90 mcg/actuation inhaler Inhale 2 Puffs as instructed every 4 hours as needed for wheezing/shortness of breath. sertraline (ZOLOFT) 50 mg tablet Take 1 tablet by mouth once daily. folic acid 1 mg tablet Take 1 tablet by mouth once daily. traMADol (ULTRAM) 50 mg tablet Take 25-50 mg by mouth three times daily as needed. Not started yet Clobetasol Propionate (TEMOVATE) 0.05 % external solution Apply 1 application to affected area once daily. rosuvastatin (CRESTOR) 10 mg tablet Take 10 mg by mouth once daily. Dr. Napier, [facility], Lipidology vit A/vit C/vit E/zinc/copper (PRESERVISION AREDS ORAL) Take 1 tablet by mouth twice daily. apixaban (ELIQUIS) 2.5 mg tab(s) Take 1 tablet by mouth twice daily. furosemide (LASIX) 40 mg tablet Take 2 tablets by mouth every morning AND 1 tablet daily before lunch. sacubitril-valsartan (ENTRESTO) 24-26 mg tablet Take 1 tablet by mouth twice daily. metoprolol succinate ER (TOPROL XL) 25 mg 24 hr tablet Take 1 tablet by mouth once daily. Per Dr. Ibarra. coenzyme Q10 (COENZYME Q-10) 100 mg cap capsule Take 100 mg by mouth once daily. isosorbide mononitrate ER (IMDUR) 60 mg 24 hr tablet Take 60 mg by mouth once daily. nitroglycerin sublingual (NITROSTAT) 0.4 mg SL tablet Dissolve 1 tablet under the tongue as needed for Chest Pain. If no pain relief call 911. Cholecalciferol, Vitamin D3, 2,000 unit cap Take 1 capsule by mouth once daily. aspirin, enteric coated (ADULT LOW DOSE ASPIRIN) 81 mg EC tablet Take 1 tablet by mouth once daily. Olqkumzluneyv-Ikliqqto-Bhtjhw (CENTRUM SILVER) Tab Take 1 tablet by mouth once daily. No current facility-administered medications for this visit. ALLERGIES: Accupril [Quinapril Hcl], Diovan [Valsartan], Biaxin [Clarithromycin], Crestor [Rosuvastatin Calcium], Lipitor [Atorvastatin Calcium], Pravachol [Pravastatin Sodium], Vytorin 04/09 [Ezetimibe-Simvastatin], Zyrtec [Cetirizine Hcl], Avapro [Irbesartan], Benicar [Olmesartan Medoxomil], Chlorthalidone, Lovaza [Glasgow-3 Acid Ethyl Esters], Metoprolol, Red Yeast Rice, and Zetia [Ezetimibe] PERSONAL HISTORY: Social History Tobacco Use Smoking status: Former Packs/day: 0.50 Years: 30.00 Total pack years: 15.00 Types: Cigarettes Start date: 07/01/1957 Quit date: 07/01/1987 Years since quittin.6 Smokeless tobacco: Never Vaping Use Vaping Use: Never used Substance Use Topics Alcohol use: Yes Comment: rare wine. Drug use: No (more content not included)... [facility] 01-29-2023 History of Present illness Narrative HISTORY AND PHYSICAL Marcos Zafar Radha 1935 REFERRING PHYSICIAN: Perry Olivas MD CHIEF COMPLAINT: Consult (Perianal hematoma s/p fall.) HPI: The patient is a 87 year old male with a complaint of Perianal hematoma. noted a bruised area near the tailbone this weekend. They had gone down to [place] Saturday, and he told her he fell off his chair while there. He denied any unusual pain or fever. The patient is being seen by me today at the request of Perry Guzman MD for my opinion and advice regarding Perianal hematoma. PAST MEDICAL HISTORY Diagnosis Date Abscess of intestine Acute myocardial infarction, unspecified site, subsequent episode of care x 2 Aortic stenosis, moderate 04/20/2022 ASHD (arteriosclerotic heart disease) 03/20/2010 Bilateral hearing loss 10/24/2016 Cardiomyopathy, ischemic 05/18/2016 Chronic low back pain with sciatica 05/07/2017 CKD (chronic kidney disease) stage 3, GFR 30-59 ml/min ([facility]) 10/24/2016 DDD (degenerative disc disease), lumbar 10/19/2011 Diabetes mellitus type 2, controlled, without complications ([facility]) 07/25/2005 Diverticulitis of colon (without mention of hemorrhage)(562.11) 04/18/2005 Essential hypertension 03/20/2010 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 Mixed hyperlipidemia 04/18/2005 Neurogenic claudication due to lumbar spinal stenosis 05/01/2017 Other psoriasis 04/18/2005 Paroxysmal atrial fibrillation ([facility]) 05/06/2020 Polymyalgia rheumatica ([facility]) Primary osteoarthritis involving multiple joints 07/25/2005 Unspecified hemorrhoids with other complication VT (ventricular tachycardia) ([facility]) with AICD 07/24/2017 AICD PAST SURGICAL HISTORY Procedure Laterality Date COLONOSCOPY 07/14/2003 COLONOSCOPY FLX DX W/COLLJ SPEC WHEN PFRMD 08/27/2013 Colonoscopy CORONARY STENT EA VESSEL 08/01/2017 ALAN mid RCA, balloon angioplasty distal RCA 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 1995. 2002. PAST SURGICAL HISTORY OF 08/2001 Arthroscopy Right Shoulder PAST SURGICAL HISTORY OF 08/08/2004 Right CTR PAST SURGICAL HISTORY OF 08/24/2004 Left CTR STENT - CORONARY 07/04/2017 ALAN x 3 to LAD, ALAN x 1 prox. OM1. (4 stents) Current Outpatient Medications Medication Sig albuterol HFA (VENTOLIN HFA) 90 mcg/actuation inhaler Inhale 2 Puffs as instructed every 4 hours as needed for wheezing/shortness of breath. sertraline (ZOLOFT) 50 mg tablet Take 1 tablet by mouth once daily. folic acid 1 mg tablet Take 1 tablet by mouth once daily. traMADol (ULTRAM) 50 mg tablet Take 25-50 mg by mouth three times daily as needed. Not started yet Clobetasol Propionate (TEMOVATE) 0.05 % external solution Apply 1 application to affected area once daily. rosuvastatin (CRESTOR) 10 mg tablet Take 10 mg by mouth once daily. Dr. Napier, [facility], Lipidology vit A/vit C/vit E/zinc/copper (PRESERVISION AREDS ORAL) Take 1 tablet by mouth twice daily. apixaban (ELIQUIS) 2.5 mg tab(s) Take 1 tablet by mouth twice daily. furosemide (LASIX) 40 mg tablet Take 2 tablets by mouth every morning AND 1 tablet daily before lunch. sacubitril-valsartan (ENTRESTO) 24-26 mg tablet Take 1 tablet by mouth twice daily. metoprolol succinate ER (TOPROL XL) 25 mg 24 hr tablet Take 1 tablet by mouth once daily. Per Dr. Ibarra. coenzyme Q10 (COENZYME Q-10) 100 mg cap capsule Take 100 mg by mouth once daily. isosorbide mononitrate ER (IMDUR) 60 mg 24 hr tablet Take 60 mg by mouth once daily. nitroglycerin sublingual (NITROSTAT) 0.4 mg SL tablet Dissolve 1 tablet under the tongue as needed for Chest Pain. If no pain relief call 911. Cholecalciferol, Vitamin D3, 2,000 unit cap Take 1 capsule by mouth once daily. aspirin, enteric coated (ADULT LOW DOSE ASPIRIN) 81 mg EC tablet Take 1 tablet by mouth once daily. Meujclfjfmpld-Gsqipcfd-Hoqzdm (CENTRUM SILVER) Tab Take 1 tablet by mouth once daily. No current facility-administered medications for this visit. ALLERGIES: Accupril [Quinapril Hcl], Diovan [Valsartan], Biaxin [Clarithromycin], Crestor [Rosuvastatin Calcium], Lipitor [Atorvastatin Calcium], Pravachol [Pravastatin Sodium], Vytorin 10/10 [Ezetimibe-Simvastatin], Zyrtec [Cetirizine Hcl], Avapro [Irbesartan], Benicar [Olmesartan Medoxomil], Chlorthalidone, Lovaza [Glasgow-3 Acid Ethyl Esters], Metoprolol, Red Yeast Rice, and Zetia [Ezetimibe] PERSONAL HISTORY: Social History Tobacco Use Smoking status: Former Packs/day: 0.50 Years: 30.00 Total pack years: 15.00 Types: Cigarettes Start date: 07/01/1957 Quit date: 07/01/1987 Years since quittin.6 Smokeless tobacco: Never Vaping Use Vaping Use: Never used Substance Use Topics Alcohol use: Yes Comment: rare wine. Drug use: No FAMILY HISTORY: FAMILY HISTORY Problem Relation Age of Onset Diabetes Mother Arthritis Mother Breast Cancer Sister REVIEW OF SYMPTOMS: The review of systems data was entered by the nurse and reviewed by me There are no exam notes on file for this visit. PHYSICAL EXAMINATION: General: The patient is 87 year old male, well nourished, well hydrated in no acute distress. The patient is oriented to time, place, and person. VITALS: Blood pressure 110/62, pulse 70, temperature 36.4 C (97.5 F), SpO2 97 %. HEENT: Normal cephalic, ataumatic, pupils are equally round, sclera are anicteric, mucous membranes are moist, oropharynx is clear. Neck has no masses, asymmetry or lymphadenopathy. Thyroid is unremarkable. Rectal exam: exam deferred Some ecchymosis of right sacral area. Raised triangular fluctuant mass ~2cm each side, soft, mildly tender Extremities: no clubbing, cyanosis or edema. No adenopathy. Other: LABORATORY VALUES: As Noted RADIOLOGIC STUDIES: As Noted Assessment IMPRESSION: Perianal hematoma PLAN: At this point I do not think there is anything that needs to be drained. This is not an infection. There is no signs of excoriation I believe that probably sitting on a donut would benefit him as far as easing his discomfort. Diagnoses: (K64.5) Perianal hematoma My findings have been communicated to Perry Guzman MD via shared medical record. This note will be forwarded to Perry Gumzan MD. Return to Clinic: The patient is instructed to follow-up with me as needed. Italo Eason III, MD documented in this encounter [facility] 01-28-2023 Note HNO ID: [id number] Author: Perry Olivas MD Service: ? Author Type: Physician Type: Progress Notes Filed: 01/28/2023 2:00 PM Note Text: This note was created using VSportoriter. Subjective Marcos Garcia is a 87 year old male. noted a bruised area near the tailbone this weekend. They had gone down to [place] Saturday, and he told her he fell off his chair while there. He denied any unusual pain or fever. Review of Systems Per HPI. 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 Chronic Kidney Disease, Without Long-Term Current Use of Insulin (Hcc) Primary Osteoarthritis Involving Multiple Joints Essential Hypertension Ashd (Arteriosclerotic Heart Disease) Cardiomyopathy, Ischemic VT (ventricular tachycardia) (HCC) with AICD Bilateral Hearing Loss Neurogenic Claudication Due to Lumbar Spinal Stenosis Obesity, Class I, Bmi 30-34.9 Dermatophytosis of Nail Mood Disorder ([facility]) Gait Disturbance Paroxysmal Atrial Fibrillation ([facility]) Chronic Bilateral Low Back Pain Aortic Stenosis, Moderate History of Covid-19 Social History Tobacco Use Smoking status: Former Packs/day: 0.50 Years: 30.00 Total pack years: 15.00 Types: Cigarettes Start date: 07/01/1957 Quit date: 07/01/1987 Years since quittin.6 Smokeless tobacco: Never Vaping Use Vaping Use: Never used Substance Use Topics Alcohol use: Yes Comment: rare wine. Drug use: No Current Outpatient Medications Medication Sig sertraline (ZOLOFT) 50 mg tablet Take 1 tablet by mouth once daily. folic acid 1 mg tablet Take 1 tablet by mouth once daily. traMADol (ULTRAM) 50 mg tablet Take 25-50 mg by mouth three times daily as needed. Not started yet albuterol HFA (VENTOLIN HFA) 90 mcg/actuation inhaler Inhale 2 Puffs as instructed every 4 hours as needed for wheezing/shortness of breath. Clobetasol Propionate (TEMOVATE) 0.05 % external solution Apply 1 application to affected area once daily. rosuvastatin (CRESTOR) 10 mg tablet Take 10 mg by mouth once daily. Dr. Napier, [facility], Lipidology apixaban (ELIQUIS) 2.5 mg tab(s) Take 1 tablet by mouth twice daily. furosemide (LASIX) 40 mg tablet Take 2 tablets by mouth every morning AND 1 tablet daily before lunch. sacubitril-valsartan (ENTRESTO) 24-26 mg tablet Take 1 tablet by mouth twice daily. metoprolol succinate ER (TOPROL XL) 25 mg 24 hr tablet Take 1 tablet by mouth once daily. Per Dr. Ibarra. coenzyme Q10 (COENZYME Q-10) 100 mg cap capsule Take 100 mg by mouth once daily. isosorbide mononitrate ER (IMDUR) 60 mg 24 hr tablet Take 60 mg by mouth once daily. nitroglycerin sublingual (NITROSTAT) 0.4 mg SL tablet Dissolve 1 tablet under the tongue as needed for Chest Pain. If no pain relief call 911. Cholecalciferol, Vitamin D3, 2,000 unit cap Take 1 capsule by mouth once daily. aspirin, enteric coated (ADULT LOW DOSE ASPIRIN) 81 mg EC tablet Take 1 tablet by mouth once daily. Hhrlsllorddlb-Haaqatbj-Twnemc (CENTRUM SILVER) Tab Take 1 tablet by mouth once daily. vit A/vit C/vit E/zinc/copper (PRESERVISION AREDS ORAL) Take 1 tablet by mouth twice daily. No current facility-administered medications for this visit. Objective BP 116/66 (BP Site: Left Arm, BP Position: Sitting, BP Cuff Size: Large Adult) Pulse 68 Resp 20 Wt 93.4 kg (206 lb) BMI 30.42 kg/m? Physical Exam Constitutional: General: He is not in acute distress. Appearance: He is not diaphoretic. Comments: Wheelchair bound. Cardiovascular: Rate and Rhythm: Normal rate and regular rhythm. Pulmonary: Breath sounds: Examination of the right-lower field reveals decreased breath sounds. Examination of the left-lower field reveals decreased breath sounds. Decreased breath sounds present. Musculoskeletal: Lumbar back: Negative right straight leg raise test and negative left straight leg raise test. Comments: Some ecchymosis of right sacral area. Raised triangular fluctuant mass ~2cm each side, soft, mildly tender Neurological: Mental Status: He is alert. Assessment and Plan 1. Fall, subsequent encounter - ICD9: V58.89, E888.9, ICD10: W19.XXXD (primary diagnosis) 2. Gait disturbance - ICD9: 781.2, ICD10: R26.9 3. Perianal hematoma - ICD9: 455.4, ICD10: K64.5 Rule out abscess. - CONSULT TO GENERAL SURGERY Perry Olivas MD [facility] 01-28-2023 History of Present illness Narrative This note was created using VSportoriter. Subjective Marcos Garcia is a 87 year old male. noted a bruised area near the tailbone this weekend. They had gone down to [place] Saturday, and he told her he fell off his chair while there. He denied any unusual pain or fever. Review of Systems Per HPI. 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 Chronic Kidney Disease, Without Long-Term Current Use of Insulin (Hcc) Primary Osteoarthritis Involving Multiple Joints Essential Hypertension Ashd (Arteriosclerotic Heart Disease) Cardiomyopathy, Ischemic VT (ventricular tachycardia) (HCC) with AICD Bilateral Hearing Loss Neurogenic Claudication Due to Lumbar Spinal Stenosis Obesity, Class I, Bmi 30-34.9 Dermatophytosis of Nail Mood Disorder ([facility]) Gait Disturbance Paroxysmal Atrial Fibrillation ([facility]) Chronic Bilateral Low Back Pain Aortic Stenosis, Moderate History of Covid-19 Social History Tobacco Use Smoking status: Former Packs/day: 0.50 Years: 30.00 Total pack years: 15.00 Types: Cigarettes Start date: 07/01/1957 Quit date: 07/01/1987 Years since quittin.6 Smokeless tobacco: Never Vaping Use Vaping Use: Never used Substance Use Topics Alcohol use: Yes Comment: rare wine. Drug use: No Current Outpatient Medications Medication Sig sertraline (ZOLOFT) 50 mg tablet Take 1 tablet by mouth once daily. folic acid 1 mg tablet Take 1 tablet by mouth once daily. traMADol (ULTRAM) 50 mg tablet Take 25-50 mg by mouth three times daily as needed. Not started yet albuterol HFA (VENTOLIN HFA) 90 mcg/actuation inhaler Inhale 2 Puffs as instructed every 4 hours as needed for wheezing/shortness of breath. Clobetasol Propionate (TEMOVATE) 0.05 % external solution Apply 1 application to affected area once daily. rosuvastatin (CRESTOR) 10 mg tablet Take 10 mg by mouth once daily. [facility], Lipidology apixaban (ELIQUIS) 2.5 mg tab(s) Take 1 tablet by mouth twice daily. furosemide (LASIX) 40 mg tablet Take 2 tablets by mouth every morning AND 1 tablet daily before lunch. sacubitril-valsartan (ENTRESTO) 24-26 mg tablet Take 1 tablet by mouth twice daily. metoprolol succinate ER (TOPROL XL) 25 mg 24 hr tablet Take 1 tablet by mouth once daily. Per Dr. Ibarra. coenzyme Q10 (COENZYME Q-10) 100 mg cap capsule Take 100 mg by mouth once daily. isosorbide mononitrate ER (IMDUR) 60 mg 24 hr tablet Take 60 mg by mouth once daily. nitroglycerin sublingual (NITROSTAT) 0.4 mg SL tablet Dissolve 1 tablet under the tongue as needed for Chest Pain. If no pain relief call 911. Cholecalciferol, Vitamin D3, 2,000 unit cap Take 1 capsule by mouth once daily. aspirin, enteric coated (ADULT LOW DOSE ASPIRIN) 81 mg EC tablet Take 1 tablet by mouth once daily. Bynvxreinbvbn-Ayjobgsr-Czonae (CENTRUM SILVER) Tab Take 1 tablet by mouth once daily. vit A/vit C/vit E/zinc/copper (PRESERVISION AREDS ORAL) Take 1 tablet by mouth twice daily. No current facility-administered medications for this visit. Objective BP 116/66 (BP Site: Left Arm, BP Position: Sitting, BP Cuff Size: Large Adult) Pulse 68 Resp 20 Wt 93.4 kg (206 lb) BMI 30.42 kg/m Physical Exam Constitutional: General: He is not in acute distress. Appearance: He is not diaphoretic. Comments: Wheelchair bound. Cardiovascular: Rate and Rhythm: Normal rate and regular rhythm. Pulmonary: Breath sounds: Examination of the right-lower field reveals decreased breath sounds. Examination of the left-lower field reveals decreased breath sounds. Decreased breath sounds present. Musculoskeletal: Lumbar back: Negative right straight leg raise test and negative left straight leg raise test. Comments: Some ecchymosis of right sacral area. Raised triangular fluctuant mass ~2cm each side, soft, mildly tender Neurological: Mental Status: He is alert. Assessment and Plan 1. Fall, subsequent encounter - ICD9: V58.89, E888.9, ICD10: W19.XXXD (primary diagnosis) 2. Gait disturbance - ICD9: 781.2, ICD10: R26.9 3. Perianal hematoma - ICD9: 455.4, ICD10: K64.5 Rule out abscess. - CONSULT TO GENERAL SURGERY Perry Olivas MD documented in this encounter [facility] 01-25-2023 Note HNO ID: [id number] Author: Roberto Vizcaino Service: ? Author Type: Physician Type: Progress Notes Filed: 01/25/2023 10:44 PM Note Text: Last saw pcp: 12/17/22 Subjective: Patient presents to clinic c/o painful toenails. They state that the nails are especially painful with shoe gear and pressure. Patient states that nails 1-5 b/l are painful. Patient admits to being diabetic. Patient states no change in medications or medical history since last visit. Objective: Patient presents to clinic ambulating in sneaker Vasc: DP and PT pulses are nonpalpable bilateral. CFT is less than 5 seconds bilateral. Skin temperature is warm to cool proximal to distal bilateral. There is moderate edema or varicosities noted. Neuro: Protective sensation is absent to the foot and toes when tested with the 5.07 SWM bilateral. Vibratory sensation is absent at the hallux IPJ bilateral. The hallux is downgoing bilateral. Derm: Nails 1-5 b/l are painful, discolored-yellow, thick, crumbly, dystrophic and with subungal debris. Skin is of normal turgor, texture and hair growth is absent bilateral. There are no hyperkeratosis, ulcerations, scars, verruca or other lesions noted. Ortho: Muscle strength is 5/5 for all pedal groups tested. Ankle joint DF is decreased with the knee extended with no pain or crepitus noted. 1st MPJ ROM is decreased bilateral. Assessment: (B35.1) Onychomycosis (primary encounter diagnosis) (M79.675) Pain in toe of left foot (M79.674) Pain in toe of right foot (I73.9) PAD (peripheral artery disease) ([facility]) diabetes Plan: Patient was seen and evaluated. Nails 1-5 bilateral were debrided in length and thickness. Small bleed to left 5th toe and right hallux. Band aide applied. Call if any issues arise. Patient was instructed on the continued importance of diabetic foot care along with proper diet and keeping their blood sugar under control to prevent complications. Patient is to RTC in 3-4 months. Roberto Vizcaino DPM [facility] 01-25-2023 Note HNO ID: [id number] Author: Merlene Jackson LPN Service: ? Author Type: LICENSED NURSE Type: Progress Notes Filed: 01/25/2023 10:44 PM Note Text: AMB ROOMING INTAKE FLOWSHEET DATA Patient presents with: Left Foot - Established Patient, Diabetic Foot Care Right Foot - Established Patient, Diabetic Foot Care Merlene Jackson LPN [facility] 12-28-2022 Note HNO ID: [id number] Author: Lashlel Cheung APRN.KELSI Service: ? Author Type: Nurse Practitioner Type: Progress Notes Filed: 12/28/2022 7:24 PM Note Text: Subjective The history is provided by the patient. No licensed clinical psychologist was used. HPI Marcos Garcia is a 87 year old male who presents today for CC of left eye drainage, clear for 2 hours. States like he felt something in eye. Denies any pain in eye or loss or change in vision. No cold or URI symptoms BP 122/68 Pulse 70 Temp 36.9 ?C (98.4 ?F) (Tympanic) Resp 18 SpO2 96% Social History Tobacco Use Smoking status: Former Packs/day: 0.50 Years: 30.00 Pack years: 15.00 Types: Cigarettes Start date: 07/01/1957 Quit date: 07/01/1987 Years since quittin.5 Smokeless tobacco: Never Vaping Use Vaping Use: Never used Substance Use Topics Alcohol use: Yes Comment: rare wine. Drug use: No PAST MEDICAL HISTORY Diagnosis Date Abscess of intestine Acute myocardial infarction, unspecified site, subsequent episode of care x 2 Aortic stenosis, moderate 04/20/2022 ASHD (arteriosclerotic heart disease) 03/20/2010 Bilateral hearing loss 10/24/2016 Cardiomyopathy, ischemic 05/18/2016 Chronic low back pain with sciatica 05/07/2017 CKD (chronic kidney disease) stage 3, GFR 30-59 ml/min ([facility]) 10/24/2016 DDD (degenerative disc disease), lumbar 10/19/2011 Diabetes mellitus type 2, controlled, without complications (HCC) 07/25/2005 Diverticulitis of colon (without mention of hemorrhage)(562.11) 04/18/2005 Essential hypertension 03/20/2010 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 HENT: Negative for congestion, ear pain, sinus pain and sore throat. Eyes: Positive for discharge (clear). Negative for pain and redness. Respiratory: Negative for cough, sputum production, shortness of breath and wheezing. Cardiovascular: Negative for chest pain. Musculoskeletal: Negative for myalgias. Neurological: Negative for headaches. Objective Physical Exam Vitals and nursing note reviewed. Constitutional: Appearance: He is not toxic-appearing. HENT: Head: Normocephalic and atraumatic. Right Ear: Tympanic membrane, ear canal and external ear normal. Left Ear: Tympanic membrane, ear canal and external ear normal. Nose: No mucosal edema, congestion or rhinorrhea. Right Sinus: No maxillary sinus tenderness or frontal sinus tenderness. Left Sinus: No maxillary sinus tenderness or frontal sinus tenderness. Mouth/Throat: Pharynx: Uvula midline. No oropharyngeal exudate or posterior oropharyngeal erythema. Tonsils: No tonsillar abscesses. Eyes: General: Lids are normal. Lids are everted, no foreign bodies appreciated. Right eye: No foreign body or discharge. Left eye: No foreign body or discharge. Extraocular Movements: Extraocular movements intact. Conjunctiva/sclera: Conjunctivae normal. Pupils: Pupils are equal, round, and reactive to light. Funduscopic exam: Right eye: Red reflex present. Left eye: Red reflex present. Comments: Globes are firm but not hard. Upper and lower lids were everted. There is no evidence of injury or foreign material. No hyphema is present. There is no evidence of periorbital cellulitis. There are no temporal, pulsatile masses. Flourescein stain was instilled into the left eye and a Wood's Lamp exam performed. There was no uptake. Cardiovascular: Rate and Rhythm: Normal rate and regular rhythm. Heart sounds: Normal heart sounds. Pulmonary: Effort: Pulmonary effort is normal. Breath sounds: Normal breath sounds. No decreased breath sounds, wheezing, rhonchi or rales. Lymphadenopathy: Head: Right side of head: No submental, submandibular, tonsillar or preauricular adenopathy. Left side of head: No submental, submandibular, tonsillar or preauricular adenopathy. Cervical: No cervical adenopathy. Right cervical: No superficial cervical adenopathy. Left cervical: No superficial cervical adenopathy. Neurological: Mental Status: He is alert. ASSESSMENT/PLAN: 1. Eye problem - ICD9: V41.1, ICD10: H57.9 No sign of foreign body, infetion or corneal abrasion Comfort/soothing drops If worsening symptoms, advise to seek higher level of care Follow up with PCP prn Diagnosis and treatment plan were discussed and questions were answered to the patient's satisfaction. Acknowledged understanding of concepts and follow up plan. Specific signs and symptoms that would indicate t (more content not included)... [facility] 12-28-2022 Instructions Lashell Cheung APRN.CNP - 12/28/2022 7:24 PM EDT Soothing eye drop Go to ER for any sudden loss of vision or severe vision changes. Follow up with eye doctor as needed documented in this encounter [facility] 12-28-2022 History of Present illness Narrative Subjective The history is provided by the patient. No licensed clinical psychologist was used. HPI Marcos Garcia is a 87 year old male who presents today for CC of left eye drainage, clear for 2 hours. States like he felt something in eye. Denies any pain in eye or loss or change in vision. No cold or URI symptoms BP 122/68 Pulse 70 Temp 36.9 C (98.4 F) (Tympanic) Resp 18 SpO2 96% Social History Tobacco Use Smoking status: Former Packs/day: 0.50 Years: 30.00 Pack years: 15.00 Types: Cigarettes Start date: 07/01/1957 Quit date: 07/01/1987 Years since quittin.5 Smokeless tobacco: Never Vaping Use Vaping Use: Never used Substance Use Topics Alcohol use: Yes Comment: rare wine. Drug use: No PAST MEDICAL HISTORY Diagnosis Date Abscess of intestine Acute myocardial infarction, unspecified site, subsequent episode of care x 2 Aortic stenosis, moderate 04/20/2022 ASHD (arteriosclerotic heart disease) 03/20/2010 Bilateral hearing loss 10/24/2016 Cardiomyopathy, ischemic 05/18/2016 Chronic low back pain with sciatica 05/07/2017 CKD (chronic kidney disease) stage 3, GFR 30-59 ml/min ([facility]) 10/24/2016 DDD (degenerative disc disease), lumbar 10/19/2011 Diabetes mellitus type 2, controlled, without complications ([facility]) 07/25/2005 Diverticulitis of colon (without mention of hemorrhage)(562.11) 04/18/2005 Essential hypertension 03/20/2010 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 HENT: Negative for congestion, ear pain, sinus pain and sore throat. Eyes: Positive for discharge (clear). Negative for pain and redness. Respiratory: Negative for cough, sputum production, shortness of breath and wheezing. Cardiovascular: Negative for chest pain. Musculoskeletal: Negative for myalgias. Neurological: Negative for headaches. Objective Physical Exam Vitals and nursing note reviewed. Constitutional: Appearance: He is not toxic-appearing. HENT: Head: Normocephalic and atraumatic. Right Ear: Tympanic membrane, ear canal and external ear normal. Left Ear: Tympanic membrane, ear canal and external ear normal. Nose: No mucosal edema, congestion or rhinorrhea. Right Sinus: No maxillary sinus tenderness or frontal sinus tenderness. Left Sinus: No maxillary sinus tenderness or frontal sinus tenderness. Mouth/Throat: Pharynx: Uvula midline. No oropharyngeal exudate or posterior oropharyngeal erythema. Tonsils: No tonsillar abscesses. Eyes: General: Lids are normal. Lids are everted, no foreign bodies appreciated. Right eye: No foreign body or discharge. Left eye: No foreign body or discharge. Extraocular Movements: Extraocular movements intact. Conjunctiva/sclera: Conjunctivae normal. Pupils: Pupils are equal, round, and reactive to light. Funduscopic exam: Right eye: Red reflex present. Left eye: Red reflex present. Comments: Globes are firm but not hard. Upper and lower lids were everted. There is no evidence of injury or foreign material. No hyphema is present. There is no evidence of periorbital cellulitis. There are no temporal, pulsatile masses. Flourescein stain was instilled into the left eye and a Wood's Lamp exam performed. There was no uptake. Cardiovascular: Rate and Rhythm: Normal rate and regular rhythm. Heart sounds: Normal heart sounds. Pulmonary: Effort: Pulmonary effort is normal. Breath sounds: Normal breath sounds. No decreased breath sounds, wheezing, rhonchi or rales. Lymphadenopathy: Head: Right side of head: No submental, submandibular, tonsillar or preauricular adenopathy. Left side of head: No submental, submandibular, tonsillar or preauricular adenopathy. Cervical: No cervical adenopathy. Right cervical: No superficial cervical adenopathy. Left cervical: No superficial cervical adenopathy. Neurological: Mental Status: He is alert. ASSESSMENT/PLAN: 1. Eye problem - ICD9: V41.1, ICD10: H57.9 No sign of foreign body, infetion or corneal abrasion Comfort/soothing drops If worsening symptoms, advise to seek higher level of care Follow up with PCP prn Diagnosis and treatment plan were discussed and questions were answered to the patient's satisfaction. Acknowledged understanding of concepts and follow up plan. Specific signs and symptoms that would indicate the need for higher level of care were discussed in detail warranting prompt ER evaluation. Lashell Cheung APRN.KELSI documented in this encounter [facility] 12-17-2022 Note HNO ID: [id number] Author: RT Addison(R) Service: Nuclear Medicine Author Type: Technologist Type: Progress Notes Filed: 12/17/2022 4:18 PM Note Text: Radiology Service Progress Note PATIENT NAME: Marcos Garcia DATE OF SERVICE: December 17, 2022 TIME: 4:05 PM PATIENT IDENTITY VERIFICATION COMPLETED USING TWO (2) IDENTIFIERS: Name and Date of confirmed by patient verbally. FALL SCREENING: Has the patient had 2 falls in the last year or 1 fall with injury or currently using an Ambulatory Assistive Device (Walker, Cane, Wheelchair, Crutches, etc.)? Yes, Patient High Risk for Falls What interventions were put in place to prevent falls during this visit? Offered Assistance with Transfers/Clothing, Instructed Patient to Remain Seated (Not on Exam Table) Until Exam, and did sitting in chair PATIENT GENDER DATA: Male PATIENT RELEVANT IMPLANT DATA REVIEWED: Not Applicable RADIOLOGY DEPARTMENT: General X-ray: Exam(s) Completed: Chest X-Ray PERIPHERAL IV DATA: Not applicable SIGNED BY: RT Addison(R) December 17, 2022 4:05 PM [facility] 12-17-2022 Note HNO ID: [id number] Author: Perry Olivas MD Service: ? Author Type: Physician Type: Progress Notes Filed: 12/17/2022 3:59 PM Note Text: This note was created using VSportoriter. Subjective Marcos Garcia is a 87 year old male. He was by himself today and was concerned about a band aid of his right hand. It sounded like he had a shave biopsy from a accounting methods analyst. He had no other concerns. He was last seen here in August for pneumonia. Review of Systems Constitutional: Negative for appetite change, chills, fever and unexpected weight change. HENT: Negative for congestion. Respiratory: Negative for cough, chest tightness and shortness of breath. Cardiovascular: Negative for chest pain and palpitations. Gastrointestinal: Negative for diarrhea, nausea and vomiting. 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 Chronic Kidney Disease, Without Long-Term Current Use of Insulin (Hcc) Primary Osteoarthritis Involving Multiple Joints Essential Hypertension Ashd (Arteriosclerotic Heart Disease) Cardiomyopathy, Ischemic VT (ventricular tachycardia) ([facility]) with AICD Bilateral Hearing Loss Neurogenic Claudication Due to Lumbar Spinal Stenosis Obesity, Class I, Bmi 30-34.9 Dermatophytosis of Nail Mood Disorder (Hcc) Gait Disturbance Paroxysmal Atrial Fibrillation (Hcc) Chronic Bilateral Low Back Pain Aortic Stenosis, Moderate History of Covid-19 Social History Tobacco Use Smoking status: Former Packs/day: 0.50 Years: 30.00 Pack years: 15.00 Types: Cigarettes Start date: 07/01/1957 Quit date: 07/01/1987 Years since quittin.4 Smokeless tobacco: Never Vaping Use Vaping Use: Never used Substance Use Topics Alcohol use: Yes Comment: rare wine. Drug use: No Current Outpatient Medications Medication Sig traMADol (ULTRAM) 50 mg tablet Take 25-50 mg by mouth three times daily as needed. Not started yet albuterol HFA (VENTOLIN HFA) 90 mcg/actuation inhaler Inhale 2 Puffs as instructed every 4 hours as needed for wheezing/shortness of breath. sertraline (ZOLOFT) 50 mg tablet Take 1 tablet by mouth once daily. folic acid 1 mg tablet Take 1 tablet by mouth once daily. Clobetasol Propionate (TEMOVATE) 0.05 % external solution Apply 1 application to affected area once daily. rosuvastatin (CRESTOR) 10 mg tablet Take 10 mg by mouth once daily. BRAYAN MillsU, Lipidology vit A/vit C/vit E/zinc/copper (PRESERVISION AREDS ORAL) Take 1 tablet by mouth twice daily. apixaban (ELIQUIS) 2.5 mg tab(s) Take 1 tablet by mouth twice daily. furosemide (LASIX) 40 mg tablet Take 2 tablets by mouth every morning AND 1 tablet daily before lunch. sacubitril-valsartan (ENTRESTO) 24-26 mg tablet Take 1 tablet by mouth twice daily. metoprolol succinate ER (TOPROL XL) 25 mg 24 hr tablet Take 1 tablet by mouth once daily. Per Dr. Ibarra. coenzyme Q10 (COENZYME Q-10) 100 mg cap capsule Take 100 mg by mouth once daily. isosorbide mononitrate ER (IMDUR) 60 mg 24 hr tablet Take 60 mg by mouth once daily. nitroglycerin sublingual (NITROSTAT) 0.4 mg SL tablet Dissolve 1 tablet under the tongue as needed for Chest Pain. If no pain relief call 911. Cholecalciferol, Vitamin D3, 2,000 unit cap Take 1 capsule by mouth once daily. aspirin, enteric coated (ADULT LOW DOSE ASPIRIN) 81 mg EC tablet Take 1 tablet by mouth once daily. Ufjsnywjpujww-Rkyeayor-Idwslt (CENTRUM SILVER) Tab Take 1 tablet by mouth once daily. benzonatate (TESSALON PERLES) 100 mg capsule Take 1 capsule by mouth three times daily as needed. (Patient not taking: Reported on 12/17/2022) No current facility-administered medications for this visit. Objective Wt 90.7 kg (200 lb) BMI 29.53 kg/m? Physical Exam Constitutional: General: He is not in acute distress. Appearance: He is not ill-appearing or diaphoretic. Cardiovascular: Rate and Rhythm: Normal rate and regular rhythm. Heart sounds: No murmur heard. No gallop. Pulmonary: Breath sounds: Examination of the right-lower field reveals rhonchi and rales. Examination of the left-lower field reveals rhonchi and rales. Rhonchi and rales present. Abdominal: Palpations: Abdomen is soft. Tenderness: There is no abdominal tenderness. Musculoskeletal: Right lower le+ Pitting Edema present. Left lower le+ Pitting Edema present. Skin: Comments: Right dorsal thumb wound non infected. Neurological: Mental Status: He is alert. Mental status is at baseline. Comments: Wheelchair bound. Depression Screening 05/01/2018 05/06/2019 06/13/2022 12/17/2022 PHQ-2 Score 0 0 0 0 Depression screening tool completed and reviewed. Based on score and interview, patient is already diagnosed with depression. Screening tool discussed with patient, and I recommended continuing current plan of care. Assessment and Plan ASSESSMENT/PLAN: 1. Controlled type 2 diabetes mellitus with stage 3 chronic ki (more content not included)... [facility] 12-17-2022 Instructions Perry Olivas MD - 12/17/2022 3:53 PM EDT NON FASTING BLOOD WORK IN 3 MONTHS. CHEST XRAY TODAY. documented in this encounter [facility] 12-17-2022 History of Present illness Narrative This note was created using [employer]. Subjective Marcos Garcia is a 87 year old male. He was by himself today and was concerned about a band aid of his right hand. It sounded like he had a shave biopsy from a accounting methods analyst. He had no other concerns. He was last seen here in August for pneumonia. Review of Systems Constitutional: Negative for appetite change, chills, fever and unexpected weight change. HENT: Negative for congestion. Respiratory: Negative for cough, chest tightness and shortness of breath. Cardiovascular: Negative for chest pain and palpitations. Gastrointestinal: Negative for diarrhea, nausea and vomiting. 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 Chronic Kidney Disease, Without Long-Term Current Use of Insulin ([facility]) Primary Osteoarthritis Involving Multiple Joints Essential Hypertension Ashd (Arteriosclerotic Heart Disease) Cardiomyopathy, Ischemic VT (ventricular tachycardia) ([facility]) with AICD Bilateral Hearing Loss Neurogenic Claudication Due to Lumbar Spinal Stenosis Obesity, Class I, Bmi 30-34.9 Dermatophytosis of Nail Mood Disorder ([facility]) Gait Disturbance Paroxysmal Atrial Fibrillation ([facility]) Chronic Bilateral Low Back Pain Aortic Stenosis, Moderate History of Covid-19 Social History Tobacco Use Smoking status: Former Packs/day: 0.50 Years: 30.00 Pack years: 15.00 Types: Cigarettes Start date: 07/01/1957 Quit date: 07/01/1987 Years since quittin.4 Smokeless tobacco: Never Vaping Use Vaping Use: Never used Substance Use Topics Alcohol use: Yes Comment: rare wine. Drug use: No Current Outpatient Medications Medication Sig traMADol (ULTRAM) 50 mg tablet Take 25-50 mg by mouth three times daily as needed. Not started yet albuterol HFA (VENTOLIN HFA) 90 mcg/actuation inhaler Inhale 2 Puffs as instructed every 4 hours as needed for wheezing/shortness of breath. sertraline (ZOLOFT) 50 mg tablet Take 1 tablet by mouth once daily. folic acid 1 mg tablet Take 1 tablet by mouth once daily. Clobetasol Propionate (TEMOVATE) 0.05 % external solution Apply 1 application to affected area once daily. rosuvastatin (CRESTOR) 10 mg tablet Take 10 mg by mouth once daily. Dr. Milks, [facility], Lipidology vit A/vit C/vit E/zinc/copper (PRESERVISION AREDS ORAL) Take 1 tablet by mouth twice daily. apixaban (ELIQUIS) 2.5 mg tab(s) Take 1 tablet by mouth twice daily. furosemide (LASIX) 40 mg tablet Take 2 tablets by mouth every morning AND 1 tablet daily before lunch. sacubitril-valsartan (ENTRESTO) 24-26 mg tablet Take 1 tablet by mouth twice daily. metoprolol succinate ER (TOPROL XL) 25 mg 24 hr tablet Take 1 tablet by mouth once daily. Per Dr. Ibarra. coenzyme Q10 (COENZYME Q-10) 100 mg cap capsule Take 100 mg by mouth once daily. isosorbide mononitrate ER (IMDUR) 60 mg 24 hr tablet Take 60 mg by mouth once daily. nitroglycerin sublingual (NITROSTAT) 0.4 mg SL tablet Dissolve 1 tablet under the tongue as needed for Chest Pain. If no pain relief call 911. Cholecalciferol, Vitamin D3, 2,000 unit cap Take 1 capsule by mouth once daily. aspirin, enteric coated (ADULT LOW DOSE ASPIRIN) 81 mg EC tablet Take 1 tablet by mouth once daily. Nkvyngqaovklv-Dfocybmo-Hsnybx (CENTRUM SILVER) Tab Take 1 tablet by mouth once daily. benzonatate (TESSALON PERLES) 100 mg capsule Take 1 capsule by mouth three times daily as needed. (Patient not taking: Reported on 12/17/2022) No current facility-administered medications for this visit. Objective Wt 90.7 kg (200 lb) BMI 29.53 kg/m Physical Exam Constitutional: General: He is not in acute distress. Appearance: He is not ill-appearing or diaphoretic. Cardiovascular: Rate and Rhythm: Normal rate and regular rhythm. Heart sounds: No murmur heard. No gallop. Pulmonary: Breath sounds: Examination of the right-lower field reveals rhonchi and rales. Examination of the left-lower field reveals rhonchi and rales. Rhonchi and rales present. Abdominal: Palpations: Abdomen is soft. Tenderness: There is no abdominal tenderness. Musculoskeletal: Right lower le+ Pitting Edema present. Left lower le+ Pitting Edema present. Skin: Comments: Right dorsal thumb wound non infected. Neurological: Mental Status: He is alert. Mental status is at baseline. Comments: Wheelchair bound. Depression Screening 05/01/2018 05/06/2019 06/13/2022 12/17/2022 PHQ-2 Score 0 0 0 0 Depression screening tool completed and reviewed. Based on score and interview, patient is already diagnosed with depression. Screening tool discussed with patient, and I recommended continuing current plan of care. Assessment and Plan ASSESSMENT/PLAN: 1. 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 Mood disorder (HCC) - ICD9: 296.90, ICD10: F39 Refilled. - SERTRALINE 50 MG TABLET 3. Paroxysmal atrial fibrillation (HCC) - ICD9: 427.31, ICD10: I48.0 Refilled. - FOLIC ACID 1 MG TABLET 4. Platelets decreased (HCC) - ICD9: 287.5, ICD10: D69.6 Recheck. - CBC 5. Cardiomyopathy, ischemic - ICD9: 414.8, ICD10: I25.5 Recheck. - XR CHEST 2V FRONTAL/LAT 6. History of pneumonia - ICD9: V12.61, ICD10: Z87.01 - XR CHEST 2V FRONTAL/LAT Perry Olivas MD documented in this encounter [facility] 10-22-2022 Note HNO ID: [id number] Author: Roberto Vizcaino Service: ? Author Type: Physician Type: Progress Notes Filed: 10/22/2022 3:21 PM Note Text: Subjective: Patient presents to clinic c/o painful toenails. They state that the nails are especially painful with shoe gear and pressure. No other pedal complaints at this time. Patient states no change in medications or medical history since last visit. Objective: Patient presents to clinic ambulating in sandals Vasc: DP and PT pulses are nonpalpable bilateral. CFT is less than 5 seconds bilateral. Skin temperature is warm to cool proximal to distal bilateral. There is moderate edema or varicosities noted. Neuro: Protective sensation is absent to the foot and toes when tested with the 5.07 SWM bilateral. Vibratory sensation is absent at the hallux IPJ bilateral. The hallux is downgoing bilateral. Derm: Nails 1-5 b/l are painful, discolored-yellow, thick, crumbly, dystrophic and with subungal debris. Skin is thin, pallor and hair growth is absent bilateral. Multiple scabs are present to lesser toes of b/l feet but no ulceration. There are no hyperkeratosis, ulcerations, scars, verruca or other lesions noted. Ortho: Muscle strength is 5/5 for all pedal groups tested. Ankle joint DF is decreased with the knee extended with no pain or crepitus noted. 1st MPJ ROM is decreased bilateral. Assessment: (B35.1) Onychomycosis (primary encounter diagnosis) (M79.675) Pain in toe of left foot (M79.674) Pain in toe of right foot (I73.9) PAD (peripheral artery disease) ([facility]) (I87.2) Venous insufficiency Plan: Patient was seen and evaluated. Nails 1-5 bilateral were debrided in length and thickness. Recommend tubigrip for lower extremity edema Multiple scabs but all appear healed Patient is to RTC in 3-4 months. Roberto Vizcaino DPM [facility] 10-22-2022 Note HNO ID: [id number] Author: Grisel Vale RN Service: ? Author Type: Registered Nurse Type: Progress Notes Filed: 10/22/2022 3:21 PM Note Text: Patient presents with: Left Foot - Established Patient, Follow Up, Diabetic Foot Check Right Foot - Established Patient, Follow Up, Diabetic Foot Check Patient presents for nail care and diabetic foot check. Multiple small scabs to bilateral toes and to medial left ankle. [facility] 09-26-2022 History of Present illness Narrative Patient presents for follow-up with [facility]. He presents today with his . PMH: CAD s/p ALAN to LAD x3, ALAN to OM1, and ALAN to mid RCA (first event at age 58); T2DM; AF; HTN; HFrEF: CKD Interval hx: 05/2022 COVID infection. Had pneumonia this month, recuperating. Coughing has improved Current lipid lowering medications: Rosuvastatin 10 mg daily. (st 05/2019 at 2.5 mg every other day; incr 11/2019, incr 03/2020). ASSESSMENT: 1. Mixed Dyslipidemia: Secondary prevention patient with hx of TN and CAD s/p multiple interventions, possible FH, HTN, T2DM, and CKD at very high risk. Patient is a candidate for high intensity statin therapy but use has been limited by intolerance.. Targets of therapy below: LDL goal of: 50% reduction from baseline to <100 mg/dL and absolute reduction to <70mg/dL Consider LDL <55 mg/dL Non-HDL goal of: <100mg/dL Consider nonHDL <85 mg/dL Patient has achieved targets of therapy noted above. LDL has improved from prior, >50% reduced from baseline and now <70 mg/dL; TG mildly elevated but nonHDL <100. Could consider LDL <55/ nonHDL <85 goals; pt has essentially met these aggressive goals as well (nonHDL borderline at 85). If escalation is warranted in future, pt would be open to retrial of ezetimibe (prior ADR of diarrhea) - consider low dose. Unclear of benefits of starting PCSK9i given age. Bempedoic acid may also be a consideration. 2. CAD: No current complaints. s/p multiple stents to LAD, OM1, and RCA and angioplasty to RCA. Current regimen includes aspirin 81 mg daily, furosemide, , isosorbide MN, metoprololm and nitroglycerin PRN (denies any use). Follows with Dr. Ibarra ([facility]) 3. HTN/HFrEF: BP controlled today. Current regimen includes: valsartan-sacbutril, metoprolol succinate, isosorbide mononitrate, and furosemide. Follows with Dr. Olivas/Dr Ibarra. 4. CKD Stage 3: Consideration for drug dosing. Managed by Dr. Olivas. 08/2022 eGFR 23 mL/min/1.72m2 per. Max dose of rosuvastatin is 10mg daily for eGFR <30. 5. T2DM: Does not SMBG. 03/2022 A1C 7.2%, increased from prior, 05/2022 A1C similar 7.1%. Not on medication at this time. Follows with Dr. Brito. PLAN: 1. Continue rosuvastatin 10 mg every day 2. Recommend heart healthy dietary habits. See below for full heart healthy diet recommendations. 3. Recommend resuming aerobic exercise regimen as you are able, with target of at least 150 minutes per week. Consider trying to walk 10 minutes a day (up and down driveway) 4. Next visit in 6-9 months in PharmD lipid clinic. If questions, call: [phone]. Lab orders faxed to [facility] (phone [phone], fax [phone]) This telehealth visit is a real time audio/visual communication. During the scheduling process, this patient has verbally consented to the submission of Telehealth visits and the patient is aware of the risks, benefits, and possible coinsurance/copay costs. This visit is being conducted by real time video due to the current COVID19 pandemic and efforts to reduce in-clinic visits, where possible, to reduce the overall risk of the spread of the illness. Patient Location: Home Time to complete visit: 20 Minutes Shireen Mcgarry ([facility]), PharmD, BCPS, CLS, BCGP Specialty Practice Pharmacist [facility] Pertinent Drug Interactions: None SUBJECTIVE: Referring provider: Dr. Lenard Nails, DO Current PCP: Dr. Perry Olivas MD (PCP) Current electromechanical technician: Dr. Jose Ibarra MD (Cardio) SH: Retired and ; lives with his Compliance with his/her medication regimen is excellent. assists with medication adherence and fills pill box each week. He denies side effects with current regimen. Lifestyle habits: Eating behaviors: stable from historic. Low sodium low cholesterol diet Roderick Navarro - 2 eggs over easy plus toast (oatmeal has 300 mg) Eating out - once every 1-2 weeks; cooks at home Egg Beaters insstead of whole eggs Occasional ice cream Beverages - tea, water, soda occasionally, almond milk instead of regular milk Fruits/ vegetables - bananas, mixed fruit from the grocery store - weekly His helps with his adherence to dietary restrictions. Exercise habits: similar to historic. Has had numerous spinal procuedures, last had helped sx a bit. Completed PT. Still has difficulty standing for long periods. Walking with walker. Activity historically limited by knee and back pain. Patient achieving some of recommended 150 minutes per week currently. Aerobic activity: some walking Weight training: No Former smoker (while in the [place]) quit 1979 for 15 pack-years. Family history of ASCVD or HLD: Maternal cousin: waiting for heart transplant OBJECTIVE: Clinical ASCVD determination: Patient does have a history of major clinical ASCVD events including arterial revascularization s/p multiple stents to LAD, FRANK, and RCA and angioplasty to RCA. Was deemed not a candidate for CABG per [facility] Relevant imaging and procedures include: s/p ALAN to LAD x3, ALAN to OM1, and ALAN to mid RCA (first event at age 58) Carotid (02/25/18): Common carotid: Plaque visualized, no significant stenosis Internal carotid: 60-79% stenosis Subclavian: plaque visualized, no significant stenosis Common carotid: plaque visualized, no significant stenosis Internal carotid: 20-39% stenosis [facility] 08/01/17 Prior LAD and OM stents appear patent with improvement in appearance of septal perforators upon comparing the angiogram to previous study , Aortic valve not crossed Lesion #1: The mid RCA lesion was pre-dilated ( BALL QUANTUM APEX 2.00X15) and treated with DESx1 ( XIENCE ALPIN 3X33). After deployment there was no residual stenosis, no evidence of dissection and CARLOS III flow distally. Lesion #2: The distal RCA lesion was treated with POBA only (BALL QUANTUM APEX 2.00X15). After POBA there was 10% residual stenosis, no evidence of dissection and CARLOS III flow distally. [facility] (07/04/17): Lesion #1: The mid LAD lesion was pre-dilated (BALL QUANTUM APEX 3.00X20) and treated with DESx1 (JM RX 3.0X34). After deployment there was no residual stenosis, no evidence of dissection and CARLOS III flow distally. Stent was post dilated (BALL QUANTUM APEX 3.00X20) Lesion #2: The proximal LAD lesion was pre-dilated (BALL QUANTUM APEX 3.00X20) and treated with two overlapping DESx2 (XIENCE ALPIN 3X38;JM RX 3.00X12 ). After deployment there was no residual stenosis, no evidence of dissection and CARLOS III flow distally. Stent was post dilated (BALL QUANTUM APEX 3.00X20) IVUS interrogation of left main-LAD revealed well apposed stent,adequate lesion coverage with no evidence of significant disease at left main (MLA ~10 mm2) Lesion #3: The proximal high OM1 lesion was pre-dilated (BALL 2.7 X 15 RX NC EUPHO) and treated with DESx1 (JM RX 2.75X15) KRIS (05/01/17): Right side: 1.23 Left side: 1.15 Stress test (06/21/94): No ischemic regions noted LHC (06/20/94; age 58): 100% stenosis of ant trunk, 25-50% of 1st diagonal, 75-95% stenosis of OM1, 10-25% stenosis of Cx and RCA Patient also has the following high risk conditions: H/o TN other than within the last 12 months AND Age > 65 years History of prior CABG or PCI outside of major ASCVD events (first event in 1993 at age 58) Diabetes mellitus HTN Chronic kidney disease (eGFR 15-59 mL/min/1.73m2) LDL-C > 100mg/dL despite maximally tolerated statin and ezetimibe History of congestive heart failure (EF 20% on 12/15/18) He does have baseline elevated LDL-C > 190 mg/dL but does not have evidence of genetic hyperlipidemias. [facility] diagnostic criteria score = 3 points which is possible FH Per NLA FH Guidelines, patient also has the following additional risk factors (>2 supports intensification of therapy): Age (men >30) Male Metabolic syndrome HTN (BP >140/90 or on treatment) He has Type 2 Diabetes; currently controlled w/o medications Patient also has the following diabetes-specific risk enhancers: Albuminuria > 30 mcg albumin/ mg creatinine eGFR <60mL/min/1.73m2 Additional ASCVD Risk Enhancers not captured above: LDL-C > 160 mg/dL on at least 3 measurements Chronic kidney disease Metabolic syndrome with history of (>3 meets criteria): abdominal obesity, HTN >135/85, and fasting glucose > 100mg/dL Pertinent negatives: KRIS, retinopathy, neuropathy VITALS: Date Weight (lb) BMI Waist (in) BP HR 12/11/19 187 27.67 42 138/72 74 04/06/20 191 28.21 45 94/58 08/09/21 197 30.85 109/70 69 03/28/22 201.2 29.71 49 98/66 72 LABS: Date TC HDL TG LDL Non- HDL <70 <100 01/25/03 295 56 124 214 211d 239 02/25/03 204 54 107 129 136d 150 05/09/04 222 52 140 142 150d 170 04/19/05 269 40 139 201 229 07/19/05 284 39 165 212 245 04/22/07 256 47 117 186 117d 209 07/28/07 254 43 185 174 211 12/28/08 259 45 135 187 214 06/12/10 254 51 103 182 203 09/11/10 271 47 101 203 224 08/13/11 296 52 143 215 244 04/08/13 282 54 128 202 228 08/10/13 262 51 143 182 211 07/08/14 246 57 93 170 189 04/16/16 238 48 101 170 190 04/22/17 187 44 71 129 143 08/01/17 218 46 57 161 172 04/30/18 225 49 124 151 176 04/27/19 164 10/27/19 204 43 157 130 161 11/18/19 194 43 162 119 151 03/22/20 162 42 189 82 120 08/03/20 163 37 169 92 126 12/05/20 281 47 192 196 234 04/13/21 149 43 154 75 106 08/01/21 171 58 114 90 113 01/26/22 151 45 148 76 106 03/26/22 156 43 168 79 113 09/18/22 125 40 192 47 85 Date Lp (a) Hs - Crp CK apoB Urine Protein 11/03/03 247 08/24/05 82 01/21/07 405 05/23/09 60 04/17/12 87 30 12/08/12 72 07/08/14 30 04/27/19 61 Date Glu Hb- A1c Alk Ph ALT AST T Bili Cr TSH 25 OH Vit D 02/14/18 64 78 27 21 0.7 1.53 2.590 04/30/18 108 6.1 80 33 20 1.2 1.64 10/29/18 5.6 01/27/19 88 6.2 2.15 04/27/19 101 5.8 1.98 10/27/19 124 6.1 2.05 11/18/19 82 17 14 0.7 03/22/20 54.1 05/02/20 123 6.3 93 10 23 2.47 08/03/20 116 01/05/21 119 2.37 08/01/21 123 76 28 16 0.6 2.32 2.30 03/13/22* 7.2 81 13 16 0.4 2.11 2.75 05/17/22 125 7.1 70 33 46 0.6 2.61 *admision for HF Previous lipid lowering medications include: Pt has tried multiple statins in the past - has had an episode of lip swelling with one of them but does not recall the name of the medication. Per outside records, pt has tried the following with listed myalgias to all. Pt does not recall dosing Simvastatin - myalgia Pravastatin - myalgia Atorvastatin - myalgia Rosuvastatin - myalgia Ezetimibe - diarrhea Possible predisposing factors for statin associated side effects: Age (>80y) Co-morbidities including renal dysfunction Referral history: Referral for Imaging testing: No Cardiac Export Packer: No Referred for consideration of clinical trial: No Last visit with lipid clinic MD: 08/09/2021 Dr. Napier The following Clinical Intervention(s) occurred during today's visit: Teaching/education provided to patient and or support team regarding dyslipidemia. Performed extensive analysis of lab results or medications specifically regarding dyslipidemia. The Outpatient Consult Agreement policy was communicated to the patient or legal guardian during clinic visit. Patient voiced understanding of agreement. While I did not have the opportunity to see this patient personally today, I reviewed and agree with the ongoing management as documented by my pharmacy colleague. Good response to statin documented in this encounter [facility] 09-26-2022 Instructions Shireen Mcgarry RPH - 09/26/2022 10:00 AM EDT PLAN: Continue rosuvastatin 10 mg every day Recommend heart healthy dietary habits. See below for full heart healthy diet recommendations. Recommend resuming aerobic exercise regimen as you are able, with target of at least 150 minutes per week. Consider trying to walk 10 minutes a day (up and down driveway) Next visit in 6-9 months in [facility]. If questions, call: [phone]. Lab orders faxed to [facility] (phone [phone], fax [phone] LABS: Date TC HDL TG LDL Non- HDL <70 <100 01/25/03 295 56 124 214 211d 239 02/25/03 204 54 107 129 136d 150 05/09/04 222 52 140 142 150d 170 04/19/05 269 40 139 201 229 07/19/05 284 39 165 212 245 04/22/07 256 47 117 186 117d 209 07/28/07 254 43 185 174 211 12/28/08 259 45 135 187 214 06/12/10 254 51 103 182 203 09/11/10 271 47 101 203 224 08/13/11 296 52 143 215 244 04/08/13 282 54 128 202 228 08/10/13 262 51 143 182 211 07/08/14 246 57 93 170 189 04/16/16 238 48 101 170 190 04/22/17 187 44 71 129 143 08/01/17 218 46 57 161 172 04/30/18 225 49 124 151 176 04/27/19 164 10/27/19 204 43 157 130 161 11/18/19 194 43 162 119 151 03/22/20 162 42 189 82 120 08/03/20 163 37 169 92 126 12/05/20 281 47 192 196 234 04/13/21 149 43 154 75 106 08/01/21 171 58 114 90 113 01/26/22 151 45 148 76 106 03/26/22 156 43 168 79 113 09/18/22 125 40 192 47 85 Date Lp (a) Hs - Crp CK apoB Urine Protein 11/03/03 247 08/24/05 82 01/21/07 405 05/23/09 60 04/17/12 87 30 12/08/12 72 07/08/14 30 04/27/19 61 Date Glu Hb- A1c Alk Ph ALT AST T Bili Cr TSH 25 OH Vit D 02/14/18 64 78 27 21 0.7 1.53 2.590 04/30/18 108 6.1 80 33 20 1.2 1.64 10/29/18 5.6 01/27/19 88 6.2 2.15 04/27/19 101 5.8 1.98 10/27/19 124 6.1 2.05 11/18/19 82 17 14 0.7 03/22/20 54.1 05/02/20 123 6.3 93 10 23 2.47 08/03/20 116 01/05/21 119 2.37 08/01/21 123 76 28 16 0.6 2.32 2.30 03/13/22* 7.2 81 13 16 0.4 2.11 2.75 05/17/22 125 7.1 70 33 46 0.6 2.61 *admision for HF Recommend an overall heart healthy diet that emphasizes a variety of fruits and vegetables, whole grains, low-fat dairy products, skinless poultry and fish, nuts and legumes, and non-tropical vegetable oils. This healthy diet limits saturated fat, trans fat, sodium, red meat, sweets, and sugar-sweetened beverages. For a heart healthy diet, fill of your plate with colorful, non-starchy vegetables, fill of your plate with lean meat like fish, skinless chicken, lean cuts of red meat, or plant-based protein (e.g. tofu, beans, lentils), and fill the last of your plate with whole grains (oats, quinoa, fiber-rich whole wheat bread) or starchy vegetables (sweet potatoes, corn, winter squash). Limit salt - instead, flavor your foods with herbs, spices, lemon/[place] juice, and vinegars. Avoid sugary beverages such as soda, lemonade, juice, or sports drinks, and drink alcohol in moderation. documented in this encounter [facility] 09-21-2022 Miscellaneous Notes Noted Agata Quiles APRN.CNP Patient's calls and wanted to let provider know that patient overall is feeling better. Patient still has the cough but he is improving. Patient continues to still take his medicine that was prescribed. Sil Guerrero RN documented in this encounter [facility] 09-18-2022 Note HNO ID: [id number] Author: Agata Quiles APRN.SEPTIC TANK INSTALLER Service: ? Author Type: Nurse Practitioner Type: Progress Notes Filed: 09/18/2022 12:02 PM Note Text: CC: Patient presents with: pneumonia follow up HPI Marcos Garcia is a 86 year old male who presents today for above. Patient was seen on 09/11 for routine follow-up. reported worsening cough and congestion. Chest x-ray showed right lung airspace disease suggesting infiltrate. He was treated with Augmentin and Zithromax for pneumonia. Labs okay except BNP was elevated, higher than previous however it was from 5 years ago. Kidney function was also a little worse than 4 months ago. Today reports weakness, fatigue and sleepiness have all improved. Cough remains the same and he still sounds congested. He also developed diarrhea a few days ago, multiple episodes a day. Denies fever, chills, chest pain, worsening edema or SOB. History of CHF and CKD. He has an appointment with renal in September and cardiology in October. REVIEW OF SYSTEMS See HPI PAST MEDICAL HISTORY Diagnosis Date Abscess of intestine Acute myocardial infarction, unspecified site, subsequent episode of care x 2 Aortic stenosis, moderate 04/20/2022 ASHD (arteriosclerotic heart disease) 03/20/2010 Bilateral hearing loss 10/24/2016 Cardiomyopathy, ischemic 05/18/2016 Chronic low back pain with sciatica 05/07/2017 CKD (chronic kidney disease) stage 3, GFR 30-59 ml/min ([facility]) 10/24/2016 DDD (degenerative disc disease), lumbar 10/19/2011 Diabetes mellitus type 2, controlled, without complications ([facility]) 07/25/2005 Diverticulitis of colon (without mention of hemorrhage)(562.11) 04/18/2005 Essential hypertension 03/20/2010 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 Mixed hyperlipidemia 04/18/2005 Neurogenic claudication due to lumbar spinal stenosis 05/01/2017 Other psoriasis 04/18/2005 Paroxysmal atrial fibrillation (HCC) 05/06/2020 Polymyalgia rheumatica (HCC) Primary osteoarthritis involving multiple joints 07/25/2005 Unspecified hemorrhoids with other complication VT (ventricular tachycardia) (HCC) with AICD 07/24/2017 AICD PAST SURGICAL HISTORY Procedure Laterality Date COLONOSCOPY 07/14/2003 COLONOSCOPY FLX DX W/COLLJ SPEC WHEN PFRMD 08/27/2013 Colonoscopy CORONARY STENT EA VESSEL 08/01/2017 ALAN mid RCA, balloon angioplasty distal RCA 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 1995. 2002. PAST SURGICAL HISTORY OF 08/2001 Arthroscopy Right Shoulder PAST SURGICAL HISTORY OF 08/08/2004 Right CTR PAST SURGICAL HISTORY OF 08/24/2004 Left CTR STENT - CORONARY 07/04/2017 ALAN x 3 to LAD, ALAN x 1 prox. OM1. (4 stents) ALLERGIES Accupril [Quinapril Hcl], Diovan [Valsartan], Biaxin [Clarithromycin], Crestor [Rosuvastatin Calcium], Lipitor [Atorvastatin Calcium], Pravachol [Pravastatin Sodium], Vytorin 04/09 [Ezetimibe-Simvastatin], Zyrtec [Cetirizine Hcl], Avapro [Irbesartan], Benicar [Olmesartan Medoxomil], Chlorthalidone, Lovaza [Glasgow-3 Acid Ethyl Esters], Metoprolol, Red Yeast Rice, and Zetia [Ezetimibe] MEDICATIONS amoxicillin-clavulanic acid (AUGMENTIN) 875-125 mg per tablet Take 1 tablet by mouth twice daily for 7 days. benzonatate (TESSALON PERLES) 100 mg capsule Take 1 capsule by mouth three times daily as needed. (Patient not taking: Reported on 09/18/2022) sertraline (ZOLOFT) 50 mg tablet Take 1 tablet by mouth once daily. folic acid 1 mg tablet Take 1 tablet by mouth once daily. Clobetasol Propionate (TEMOVATE) 0.05 % external solution Apply 1 application to affected area once daily. rosuvastatin (CRESTOR) 10 mg tablet Take 10 mg by mouth once daily. Dr. Napier, [facility], Lipidology vit A/vit C/vit E/zinc/copper (PRESERVISION AREDS ORAL) Take 1 tablet by mouth twice daily. apixaban (ELIQUIS) 2.5 mg tab(s) Take 1 tablet by mouth twice daily. furosemide (LASIX) 40 mg tablet Take 2 tablets by mouth every morning AND 1 tablet daily before lunch. sacubitril-valsartan (ENTRESTO) 24-26 mg tablet Take 1 tablet by mouth twice daily. metoprolol succinate ER (TOPROL XL) 25 mg 24 hr tablet Take 1 tablet by mouth once daily. Per Dr. Ibarra. coenzyme Q10 (COENZYME Q-10) 100 mg cap capsule Take 100 mg by mouth once daily. isosorbide mononitrate ER (IMDUR) 60 mg 24 hr tablet Take 60 mg by mouth once daily. nitroglycerin sublingual (NITROSTAT) 0.4 mg SL tablet Dissolve 1 tablet under the tongue as needed for Chest Pain. If no pain relief call 911. Cholecalciferol, Vitamin D3, 2,000 unit cap Take 1 capsule by mouth once daily. aspirin, enteric coated (ADULT LOW DOSE ASPIRIN) 81 mg EC tablet Take 1 tablet by mouth once daily. Riyqbrqtcjrbz-Mfdanjrm-Glqaca (CENTRUM SILVER) Tab Take 1 tablet by mouth once daily. FAMILY HISTORY Problem Relation Age of Onset Diabetes Mother Arthritis Mother Breast Cancer Sister Social History Tob (more content not included)... [facility] 09-18-2022 Instructions Agata Quiles APRN.CNP - 09/18/2022 11:25 AM EDT Stop the antibiotics today. Let me know in two days if the diarrhea does not improve. Okay to take Imodium as needed for the diarrhea, follow package directions. Follow-up with heart and kidney specialists as scheduled For the cough/congestion: take cough syrup as prescribed. Use albuterol inhaler 4 times a day for the next few days and then as needed for cough, congestion, wheezing or SOB documented in this encounter [facility] 09-18-2022 History of Present illness Narrative CC: Patient presents with: pneumonia follow up HPI Marcos Garcia is a 86 year old male who presents today for above. Patient was seen on 09/11 for routine follow-up. reported worsening cough and congestion. Chest x-ray showed right lung airspace disease suggesting infiltrate. He was treated with Augmentin and Zithromax for pneumonia. Labs okay except BNP was elevated, higher than previous however it was from 5 years ago. Kidney function was also a little worse than 4 months ago. Today reports weakness, fatigue and sleepiness have all improved. Cough remains the same and he still sounds congested. He also developed diarrhea a few days ago, multiple episodes a day. Denies fever, chills, chest pain, worsening edema or SOB. History of CHF and CKD. He has an appointment with renal in September and cardiology in October. REVIEW OF SYSTEMS See HPI PAST MEDICAL HISTORY Diagnosis Date Abscess of intestine Acute myocardial infarction, unspecified site, subsequent episode of care x 2 Aortic stenosis, moderate 04/20/2022 ASHD (arteriosclerotic heart disease) 03/20/2010 Bilateral hearing loss 10/24/2016 Cardiomyopathy, ischemic 05/18/2016 Chronic low back pain with sciatica 05/07/2017 CKD (chronic kidney disease) stage 3, GFR 30-59 ml/min ([facility]) 10/24/2016 DDD (degenerative disc disease), lumbar 10/19/2011 Diabetes mellitus type 2, controlled, without complications ([facility]) 07/25/2005 Diverticulitis of colon (without mention of hemorrhage)(562.11) 04/18/2005 Essential hypertension 03/20/2010 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 Mixed hyperlipidemia 04/18/2005 Neurogenic claudication due to lumbar spinal stenosis 05/01/2017 Other psoriasis 04/18/2005 Paroxysmal atrial fibrillation (HCC) 05/06/2020 Polymyalgia rheumatica ([facility]) Primary osteoarthritis involving multiple joints 07/25/2005 Unspecified hemorrhoids with other complication VT (ventricular tachycardia) ([facility]) with AICD 07/24/2017 AICD PAST SURGICAL HISTORY Procedure Laterality Date COLONOSCOPY 07/14/2003 COLONOSCOPY FLX DX W/COLLJ SPEC WHEN PFRMD 08/27/2013 Colonoscopy CORONARY STENT EA VESSEL 08/01/2017 ALAN mid RCA, balloon angioplasty distal RCA 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 1996. 2002. PAST SURGICAL HISTORY OF 08/2001 Arthroscopy Right Shoulder PAST SURGICAL HISTORY OF 08/08/2004 Right CTR PAST SURGICAL HISTORY OF 08/24/2004 Left CTR STENT - CORONARY 07/04/2017 ALAN x 3 to LAD, ALAN x 1 prox. OM1. (4 stents) ALLERGIES Accupril [Quinapril Hcl], Diovan [Valsartan], Biaxin [Clarithromycin], Crestor [Rosuvastatin Calcium], Lipitor [Atorvastatin Calcium], Pravachol [Pravastatin Sodium], Vytorin 10/10 [Ezetimibe-Simvastatin], Zyrtec [Cetirizine Hcl], Avapro [Irbesartan], Benicar [Olmesartan Medoxomil], Chlorthalidone, Lovaza [Glasgow-3 Acid Ethyl Esters], Metoprolol, Red Yeast Rice, and Zetia [Ezetimibe] MEDICATIONS amoxicillin-clavulanic acid (AUGMENTIN) 875-125 mg per tablet Take 1 tablet by mouth twice daily for 7 days. benzonatate (TESSALON PERLES) 100 mg capsule Take 1 capsule by mouth three times daily as needed. (Patient not taking: Reported on 09/18/2022) sertraline (ZOLOFT) 50 mg tablet Take 1 tablet by mouth once daily. folic acid 1 mg tablet Take 1 tablet by mouth once daily. Clobetasol Propionate (TEMOVATE) 0.05 % external solution Apply 1 application to affected area once daily. rosuvastatin (CRESTOR) 10 mg tablet Take 10 mg by mouth once daily. Dr. Napier, [facility], Lipidology vit A/vit C/vit E/zinc/copper (PRESERVISION AREDS ORAL) Take 1 tablet by mouth twice daily. apixaban (ELIQUIS) 2.5 mg tab(s) Take 1 tablet by mouth twice daily. furosemide (LASIX) 40 mg tablet Take 2 tablets by mouth every morning AND 1 tablet daily before lunch. sacubitril-valsartan (ENTRESTO) 24-26 mg tablet Take 1 tablet by mouth twice daily. metoprolol succinate ER (TOPROL XL) 25 mg 24 hr tablet Take 1 tablet by mouth once daily. Per Dr. Ibarra. coenzyme Q10 (COENZYME Q-10) 100 mg cap capsule Take 100 mg by mouth once daily. isosorbide mononitrate ER (IMDUR) 60 mg 24 hr tablet Take 60 mg by mouth once daily. nitroglycerin sublingual (NITROSTAT) 0.4 mg SL tablet Dissolve 1 tablet under the tongue as needed for Chest Pain. If no pain relief call 911. Cholecalciferol, Vitamin D3, 2,000 unit cap Take 1 capsule by mouth once daily. aspirin, enteric coated (ADULT LOW DOSE ASPIRIN) 81 mg EC tablet Take 1 tablet by mouth once daily. Metvdagqgcyjm-Vjpsqouy-Zwtpmm (CENTRUM SILVER) Tab Take 1 tablet by mouth once daily. FAMILY HISTORY Problem Relation Age of Onset Diabetes Mother Arthritis Mother Breast Cancer Sister Social History Tobacco Use Smoking status: Former Packs/day: 0.50 Years: 30.00 Pack years: 15.00 Types: Cigarettes Start date: 07/01/1957 Quit date: 07/01/1987 Years since quittin.2 Smokeless tobacco: Never Substance Use Topics Alcohol use: Yes Comment: rare wine. Drug use: No PHYSICAL EXAM BP 120/77 Pulse 70 Resp 22 Wt 87.5 kg (193 lb) SpO2 95% BMI 28.50 kg/m General Appearance: well appearing, in no acute distress, alert Lungs: scattered rhonchi. No wheezing or rales. Moist cough noted during visit. Heart: RRR without murmur, gallop, or rubs. No ectopy Ext: 1+ pitting edema DATA REVIEWED: Most recent labs and imaging results. ASSESSMENT/PLAN: 1. Pneumonia of right lung due to infectious organism, unspecified part of lung - ICD9: 483.8, ICD10: J18.9 (primary diagnosis) Symptoms have improved except for cough. Discussed with patient's PCP. Recommend Robitussin with codeine and albuterol as needed. Follow-up in 5 to 7 days if no improvement or sooner if worsening. 2. Diarrhea, unspecified type - ICD9: 787.91, ICD10: R19.7 Suspect due to antibiotics. Stop Augmentin, patient has had five days on them and should be sufficient. Okay to take Imodium as needed. Instructed to let me know in a couple days if diarrhea does not improve. 3. CKD (chronic kidney disease) stage 4, GFR 15-29 ml/min (HCC) - ICD9: 585.4, ICD10: N18.4 - eGFR: Worsening - Following with nephrology: Yes - Follow up with nephrology 4. Cardiomyopathy, ischemic - ICD9: 414.8, ICD10: I25.5 Follow-up with cardiology as scheduled 5. Acute cough - ICD9: 786.2, ICD10: R05.1 Secondary to pneumonia - start CODEINE 10 MG-GUAIFENESIN 100 MG/5 ML ORAL LIQUID as needed - albuterol inhaler 4 times a day for the next few days and then as needed PDMP website checked and validated. All prescriptions have been APPROPRIATELY filled. No suspicious activity was identified. 09/18/2022 by Agata Quiles APRN.CNP Prescription instructions reviewed with patient as applicable. Potential red flag symptoms discussed with the patient. Reviewed appropriate action plan to take if red flag symptoms occur. Patient agreeable to treatment plan. Agata Quiles APRN.CNP documented in this encounter [facility] 09-11-2022 Note HNO ID: [id number] Author: RT Kash(R) Service: ? Author Type: Health Unit Supervisor Type: Progress Notes Filed: 09/11/2022 3:16 PM Note Text: Radiology Service Progress Note PATIENT NAME: Marcos Garcia DATE OF SERVICE: September 11, 2022 TIME: 3:16 PM PATIENT IDENTITY VERIFICATION COMPLETED USING TWO (2) IDENTIFIERS: Name and Date of confirmed by patient verbally. FALL SCREENING: Has the patient had 2 falls in the last year or 1 fall with injury or currently using an Ambulatory Assistive Device (Walker, Cane, Wheelchair, Crutches, etc.)? Yes, Patient High Risk for Falls What interventions were put in place to prevent falls during this visit? Offered Assistance with Transfers/Clothing, Instructed Patient to Remain Seated (Not on Exam Table) Until Exam, and Increased Observations by Caregivers PATIENT GENDER DATA: Male PATIENT RELEVANT IMPLANT DATA REVIEWED: Yes RADIOLOGY DEPARTMENT: General X-ray: Exam(s) Completed: Chest X-Ray PERIPHERAL IV DATA: Not applicable SIGNED BY: RT Kash(R) September 11, 2022 3:16 PM [facility] 09-11-2022 Note HNO ID: [id number] Author: Agata Quiles APRN.KELSI Service: ? Author Type: Nurse Practitioner Type: Progress Notes Filed: 09/11/2022 2:46 PM Note Text: CC: Patient presents with: F/U 3 Month HPI Marcos Garcia is a 86 year old male who presents today for above. Patient is here today for routine follow-up, 's main concern today is acute cough that started last week. He was seen in the medical center for this on 09/07. Chest x-ray, COVID and flu negative. Prescribed Tessalon Perles for cough. Patient's reports worsening cough and chest congestion since then. Associated with GRIFFITH, malaise, fatigue, decreased appetite and has fallen 4 times in the past week. Denies fever, chills, nausea, vomiting, diarrhea, dizziness, lightheadedness, feeling faint, passing out. He has a history of CHF, AFib and CAD. 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 Taking all medications as prescribed, no side effects. Denies chest pain, palpitations, worsening edema, weight gain, PND, orthopnea. His toes on his feet have been turning dark bluish purple intermittently. Swelling is controlled. He has a history of PAD, last seen by vascular one year ago. Was supposed to follow-up in 6 months but ended up hospitalized a few times and never followed up. He has appointment with podiatry in September, wants to call and try for a sooner appointment DM-does not check blood sugars at home. Taking all meds as prescribed, no side effects. HTN-blood pressures typically well controlled. Taking all medications as prescribed, no side effects. REVIEW OF SYSTEMS See HPI PAST MEDICAL HISTORY Diagnosis Date Abscess of intestine Acute myocardial infarction, unspecified site, subsequent episode of care x 2 Aortic stenosis, moderate 04/20/2022 ASHD (arteriosclerotic heart disease) 03/20/2010 Bilateral hearing loss 10/24/2016 Cardiomyopathy, ischemic 05/18/2016 Chronic low back pain with sciatica 05/07/2017 CKD (chronic kidney disease) stage 3, GFR 30-59 ml/min ([facility]) 10/24/2016 DDD (degenerative disc disease), lumbar 10/19/2011 Diabetes mellitus type 2, controlled, without complications ([facility]) 07/25/2005 Diverticulitis of colon (without mention of hemorrhage)(562.11) 04/18/2005 Essential hypertension 03/20/2010 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 Mixed hyperlipidemia 04/18/2005 Neurogenic claudication due to lumbar spinal stenosis 05/01/2017 Other psoriasis 04/18/2005 Paroxysmal atrial fibrillation (HCC) 05/06/2020 Polymyalgia rheumatica (HCC) Primary osteoarthritis involving multiple joints 07/25/2005 Unspecified hemorrhoids with other complication VT (ventricular tachycardia) (HCC) with AICD 07/24/2017 AICD PAST SURGICAL HISTORY Procedure Laterality Date COLONOSCOPY 07/14/2003 COLONOSCOPY FLX DX W/COLLJ SPEC WHEN PFRMD 08/27/2013 Colonoscopy CORONARY STENT EA VESSEL 08/01/2017 ALAN mid RCA, balloon angioplasty distal RCA 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 1996. 2002. PAST SURGICAL HISTORY OF 08/2001 Arthroscopy Right Shoulder PAST SURGICAL HISTORY OF 08/08/2004 Right CTR PAST SURGICAL HISTORY OF 08/24/2004 Left CTR STENT - CORONARY 07/04/2017 ALAN x 3 to LAD, ALAN x 1 prox. OM1. (4 stents) ALLERGIES Accupril [Quinapril Hcl], Diovan [Valsartan], Biaxin [Clarithromycin], Crestor [Rosuvastatin Calcium], Lipitor [Atorvastatin Calcium], Pravachol [Pravastatin Sodium], Vytorin 04/09 [Ezetimibe-Simvastatin], Zyrtec [Cetirizine Hcl], Avapro [Irbesartan], Benicar [Olmesartan Medoxomil], Chlorthalidone, Lovaza [Glasgow-3 Acid Ethyl Esters], Metoprolol, Red Yeast Rice, and Zetia [Ezetimibe] MEDICATIONS benzonatate (TESSALON PERLES) 100 mg capsule Take 1 capsule by mouth three times daily as needed. gabapentin (NEURONTIN) 100 mg capsule TAKE 1 CAPSULE BY MOUTH EVERY DAY AT BEDTIME (Patient not taking: Reported on 07/25/2022) sertraline (ZOLOFT) 50 mg tablet Take 1 tablet by mouth once daily. folic acid 1 mg tablet Take 1 tablet by mouth once daily. naltrexone capsule 4.5 mg (CPD) Take 1 capsule by mouth once daily. Clobetasol Propionate (TEMOVATE) 0.05 % external solution Apply 1 application to affected area once daily. rosuvastatin (CRESTOR) 10 mg tablet Take 10 mg by mouth once daily. [facility] [place], Lipidology vit A/vit C/vit E/zinc/copper (PRESERVISION AREDS ORAL) Take 1 tablet by mouth twice daily. apixaban (ELIQUIS) 2.5 mg tab(s) Take 1 tablet by mouth twice daily. furosemide (LASIX) 40 mg tablet Take 2 tablets by mouth every morning AND 1 tablet daily before lunch. sacubitril-valsartan (ENTRESTO) 24-26 mg tablet Take 1 tablet by mouth twice daily. metoprolol succinate ER (TOPROL XL) 25 mg 24 hr tablet Take 1 tablet by mouth once daily. Per Dr. Ibarra. coenzyme Q10 (COENZYME Q-10) 100 mg cap capsule Take 100 mg by mouth once daily. isosorbide mononitrate ER (IMDUR) 60 mg 24 hr tabl (more content not included)... [facility] 09-07-2022 Note HNO ID: [id number] Author: RT Addison(R) Service: Nuclear Medicine Author Type: Technologist Type: Progress Notes Filed: 09/07/2022 9:31 AM Note Text: Radiology Service Progress Note PATIENT NAME: Marcos Garcia DATE OF SERVICE: September 07, 2022 TIME: 9:19 AM PATIENT IDENTITY VERIFICATION COMPLETED USING TWO (2) IDENTIFIERS: Name and Date of confirmed by patient verbally. FALL SCREENING: Has the patient had 2 falls in the last year or 1 fall with injury or currently using an Ambulatory Assistive Device (Walker, Cane, Wheelchair, Crutches, etc.)? Yes, Patient High Risk for Falls What interventions were put in place to prevent falls during this visit? Offered Assistance with Transfers/Clothing, Instructed Patient to Remain Seated (Not on Exam Table) Until Exam, and done sitting in chair PATIENT GENDER DATA: [place] PATIENT RELEVANT IMPLANT DATA REVIEWED: Not Applicable RADIOLOGY DEPARTMENT: General X-ray: Exam(s) Completed: Chest X-Ray PERIPHERAL IV DATA: Not applicable SIGNED BY: RT Addison(R) September 07, 2022 9:19 AM [facility] 09-07-2022 Note HNO ID: [id number] Author: YOLANDA Barnes Service: ? Author Type: Physician Journal Entry Audit Clerk Type: Progress Notes Filed: 09/07/2022 9:38 AM Note Text: This note was created using VSportoriter. Subjective Marcos Garcia is a 86 year old male. HPI 86-year-old male presents for cough, congestion, sore throat x3 days. Patient started getting sore throat about 3 days ago. He has had a cough for the past 3 days as well. He is coughing up some phlegm. states he sounds congested down in his chest. Patient denies any chest pain or shortness of breath. states she felt like he may be breathing a little harder today. No wheezing. No history of COPD or asthma. No vomiting or diarrhea. No fevers. No sick contacts. PAST MEDICAL HISTORY Diagnosis Date Abscess of intestine Acute myocardial infarction, unspecified site, subsequent episode of care x 2 Aortic stenosis, moderate 04/20/2022 ASHD (arteriosclerotic heart disease) 03/20/2010 Bilateral hearing loss 10/24/2016 Cardiomyopathy, ischemic 05/18/2016 Chronic low back pain with sciatica 05/07/2017 CKD (chronic kidney disease) stage 3, GFR 30-59 ml/min ([facility]) 10/24/2016 DDD (degenerative disc disease), lumbar 10/19/2011 Diabetes mellitus type 2, controlled, without complications ([facility]) 07/25/2005 Diverticulitis of colon (without mention of hemorrhage)(562.11) 04/18/2005 Essential hypertension 03/20/2010 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 Mixed hyperlipidemia 04/18/2005 Neurogenic claudication due to lumbar spinal stenosis 05/01/2017 Other psoriasis 04/18/2005 Paroxysmal atrial fibrillation (HCC) 05/06/2020 Polymyalgia rheumatica ([facility]) Primary osteoarthritis involving multiple joints 07/25/2005 Unspecified hemorrhoids with other complication VT (ventricular tachycardia) ([facility]) with AICD 07/24/2017 AICD PAST SURGICAL HISTORY Procedure Laterality Date COLONOSCOPY 07/14/2003 COLONOSCOPY FLX DX W/COLLJ SPEC WHEN PFRMD 08/27/2013 Colonoscopy CORONARY STENT EA VESSEL 08/01/2017 ALAN mid RCA, balloon angioplasty distal RCA 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 1996. 2002. PAST SURGICAL HISTORY OF 08/2001 Arthroscopy Right Shoulder PAST SURGICAL HISTORY OF 08/08/2004 Right CTR PAST SURGICAL HISTORY OF 08/24/2004 Left CTR STENT - CORONARY 07/04/2017 ALAN x 3 to LAD, ALAN x 1 prox. OM1. (4 stents) ALLERGIES Accupril [Quinapril Hcl], Diovan [Valsartan], Biaxin [Clarithromycin], Crestor [Rosuvastatin Calcium], Lipitor [Atorvastatin Calcium], Pravachol [Pravastatin Sodium], Vytorin 04/09 [Ezetimibe-Simvastatin], Zyrtec [Cetirizine Hcl], Avapro [Irbesartan], Benicar [Olmesartan Medoxomil], Chlorthalidone, Lovaza [Glasgow-3 Acid Ethyl Esters], Metoprolol, Red Yeast Rice, and Zetia [Ezetimibe] MEDICATIONS sertraline (ZOLOFT) 50 mg tablet Take 1 tablet by mouth once daily. folic acid 1 mg tablet Take 1 tablet by mouth once daily. naltrexone capsule 4.5 mg (CPD) Take 1 capsule by mouth once daily. rosuvastatin (CRESTOR) 10 mg tablet Take 10 mg by mouth once daily. Dr. Napier, [facility], Lipidology vit A/vit C/vit E/zinc/copper (PRESERVISION AREDS ORAL) Take 1 tablet by mouth twice daily. apixaban (ELIQUIS) 2.5 mg tab(s) Take 1 tablet by mouth twice daily. furosemide (LASIX) 40 mg tablet Take 2 tablets by mouth every morning AND 1 tablet daily before lunch. sacubitril-valsartan (ENTRESTO) 24-26 mg tablet Take 1 tablet by mouth twice daily. metoprolol succinate ER (TOPROL XL) 25 mg 24 hr tablet Take 1 tablet by mouth once daily. Per Dr. Ibarra. coenzyme Q10 (COENZYME Q-10) 100 mg cap capsule Take 100 mg by mouth once daily. isosorbide mononitrate ER (IMDUR) 60 mg 24 hr tablet Take 60 mg by mouth once daily. aspirin, enteric coated (ADULT LOW DOSE ASPIRIN) 81 mg EC tablet Take 1 tablet by mouth once daily. Sfukoiweinrnq-Psiplneu-Qebwco (CENTRUM SILVER) Tab Take 1 tablet by mouth once daily. Benzonatate 200 mg capsule Take 1 capsule by mouth three times daily as needed. gabapentin (NEURONTIN) 100 mg capsule TAKE 1 CAPSULE BY MOUTH EVERY DAY AT BEDTIME (Patient not taking: Reported on 07/25/2022) Clobetasol Propionate (TEMOVATE) 0.05 % external solution Apply 1 application to affected area once daily. nitroglycerin sublingual (NITROSTAT) 0.4 mg SL tablet Dissolve 1 tablet under the tongue as needed for Chest Pain. If no pain relief call 911. Cholecalciferol, Vitamin D3, 2,000 unit cap Take 1 capsule by mouth once daily. FAMILY HISTORY Problem Relation Age of Onset Diabetes Mother Arthritis Mother Breast Cancer Sister Social History Tobacco Use Smoking status: Former Packs/day: 0.50 Years: 30.00 Pack years: 15.00 Types: Cigarettes Start date: 07/01/1957 Quit date: 07/01/1987 Years since quittin.2 Smokeless tobacco: Never Substance Use Topics Alcohol use: Yes Comment: rare wine. (more content not included)... [facility] 09-07-2022 History of Present illness Narrative This note was created using [employer]. Subjective Marcos Garcia is a 86 year old male. HPI 86-year-old male presents for cough, congestion, sore throat x3 days. Patient started getting sore throat about 3 days ago. He has had a cough for the past 3 days as well. He is coughing up some phlegm. states he sounds congested down in his chest. Patient denies any chest pain or shortness of breath. states she felt like he may be breathing a little harder today. No wheezing. No history of COPD or asthma. No vomiting or diarrhea. No fevers. No sick contacts. PAST MEDICAL HISTORY Diagnosis Date Abscess of intestine Acute myocardial infarction, unspecified site, subsequent episode of care x 2 Aortic stenosis, moderate 04/20/2022 ASHD (arteriosclerotic heart disease) 03/20/2010 Bilateral hearing loss 10/24/2016 Cardiomyopathy, ischemic 05/18/2016 Chronic low back pain with sciatica 05/07/2017 CKD (chronic kidney disease) stage 3, GFR 30-59 ml/min ([facility]) 10/24/2016 DDD (degenerative disc disease), lumbar 10/19/2011 Diabetes mellitus type 2, controlled, without complications ([facility]) 07/25/2005 Diverticulitis of colon (without mention of hemorrhage)(562.11) 04/18/2005 Essential hypertension 03/20/2010 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 Mixed hyperlipidemia 04/18/2005 Neurogenic claudication due to lumbar spinal stenosis 05/01/2017 Other psoriasis 04/18/2005 Paroxysmal atrial fibrillation (HCC) 05/06/2020 Polymyalgia rheumatica ([facility]) Primary osteoarthritis involving multiple joints 07/25/2005 Unspecified hemorrhoids with other complication VT (ventricular tachycardia) ([facility]) with AICD 07/24/2017 AICD PAST SURGICAL HISTORY Procedure Laterality Date COLONOSCOPY 07/14/2003 COLONOSCOPY FLX DX W/COLLJ SPEC WHEN PFRMD 08/27/2013 Colonoscopy CORONARY STENT EA VESSEL 08/01/2017 ALAN mid RCA, balloon angioplasty distal RCA 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 1996. 2002. PAST SURGICAL HISTORY OF 08/2001 Arthroscopy Right Shoulder PAST SURGICAL HISTORY OF 08/08/2004 Right CTR PAST SURGICAL HISTORY OF 08/24/2004 Left CTR STENT - CORONARY 07/04/2017 ALAN x 3 to LAD, ALAN x 1 prox. OM1. (4 stents) ALLERGIES Accupril [Quinapril Hcl], Diovan [Valsartan], Biaxin [Clarithromycin], Crestor [Rosuvastatin Calcium], Lipitor [Atorvastatin Calcium], Pravachol [Pravastatin Sodium], Vytorin 04/09 [Ezetimibe-Simvastatin], Zyrtec [Cetirizine Hcl], Avapro [Irbesartan], Benicar [Olmesartan Medoxomil], Chlorthalidone, Lovaza [Glasgow-3 Acid Ethyl Esters], Metoprolol, Red Yeast Rice, and Zetia [Ezetimibe] MEDICATIONS sertraline (ZOLOFT) 50 mg tablet Take 1 tablet by mouth once daily. folic acid 1 mg tablet Take 1 tablet by mouth once daily. naltrexone capsule 4.5 mg (CPD) Take 1 capsule by mouth once daily. rosuvastatin (CRESTOR) 10 mg tablet Take 10 mg by mouth once daily. Dr. Napier, [facility], Lipidology vit A/vit C/vit E/zinc/copper (PRESERVISION AREDS ORAL) Take 1 tablet by mouth twice daily. apixaban (ELIQUIS) 2.5 mg tab(s) Take 1 tablet by mouth twice daily. furosemide (LASIX) 40 mg tablet Take 2 tablets by mouth every morning AND 1 tablet daily before lunch. sacubitril-valsartan (ENTRESTO) 24-26 mg tablet Take 1 tablet by mouth twice daily. metoprolol succinate ER (TOPROL XL) 25 mg 24 hr tablet Take 1 tablet by mouth once daily. Per Dr. Ibarra. coenzyme Q10 (COENZYME Q-10) 100 mg cap capsule Take 100 mg by mouth once daily. isosorbide mononitrate ER (IMDUR) 60 mg 24 hr tablet Take 60 mg by mouth once daily. aspirin, enteric coated (ADULT LOW DOSE ASPIRIN) 81 mg EC tablet Take 1 tablet by mouth once daily. Jadwvncqcbupc-Qkpwvpmw-Kkujgv (CENTRUM SILVER) Tab Take 1 tablet by mouth once daily. Benzonatate 200 mg capsule Take 1 capsule by mouth three times daily as needed. gabapentin (NEURONTIN) 100 mg capsule TAKE 1 CAPSULE BY MOUTH EVERY DAY AT BEDTIME (Patient not taking: Reported on 07/25/2022) Clobetasol Propionate (TEMOVATE) 0.05 % external solution Apply 1 application to affected area once daily. nitroglycerin sublingual (NITROSTAT) 0.4 mg SL tablet Dissolve 1 tablet under the tongue as needed for Chest Pain. If no pain relief call 911. Cholecalciferol, Vitamin D3, 2,000 unit cap Take 1 capsule by mouth once daily. FAMILY HISTORY Problem Relation Age of Onset Diabetes Mother Arthritis Mother Breast Cancer Sister Social History Tobacco Use Smoking status: Former Packs/day: 0.50 Years: 30.00 Pack years: 15.00 Types: Cigarettes Start date: 07/01/1957 Quit date: 07/01/1987 Years since quittin.2 Smokeless tobacco: Never Substance Use Topics Alcohol use: Yes Comment: rare wine. Drug use: No Review of Systems Constitutional: Negative for chills and fever. HENT: Positive for congestion and sore throat. Respiratory: Positive for cough. Negative for shortness of breath. Gastrointestinal: Negative for diarrhea and vomiting. Objective BP 122/68 Pulse 67 Temp 36.6 C (97.8 F) (Tympanic) Resp 18 Wt 94.5 kg (208 lb 6.4 oz) SpO2 96% BMI 30.78 kg/m Physical Exam Vitals and nursing note reviewed. Constitutional: General: He is not in acute distress. Appearance: Normal appearance. He is not toxic-appearing. HENT: Right Ear: Tympanic membrane and ear canal normal. Left Ear: Tympanic membrane and ear canal normal. Nose: Nose normal. Mouth/Throat: Mouth: Mucous membranes are moist. Pharynx: Oropharynx is clear. Uvula midline. Tonsils: No tonsillar exudate. 0 on the right. 0 on the left. Eyes: Conjunctiva/sclera: Conjunctivae normal. Cardiovascular: Rate and Rhythm: Normal rate and regular rhythm. Pulmonary: Effort: Pulmonary effort is normal. Breath sounds: Decreased breath sounds and rales present. No wheezing or rhonchi. Comments: Lungs diminished with mild rales in the bases. No wheezing. Pulse ox 97% on room air Skin: General: Skin is warm and dry. Neurological: Mental Status: He is alert. Assessment and Plan ASSESSMENT/PLAN: 1. Acute cough - ICD9: 786.2, ICD10: R05.1 (primary diagnosis) - XR CHEST 2V FRONTAL/LA -Chest x-ray no acute findings. - RX for Tessalon - COVID WITH FLUA+B, ROUTINE - out of window Tamiflu 2. URI, acute - ICD9: 465.9, ICD10: J06.9 - Discussed viral etiology and rationale for treatment. - Symptomatic treatment with prn analgesia - Supportive care with fluids and rest -COVID/flu test pending. Diagnosis and treatment plan were discussed and questions were answered to the patient's satisfaction. Pt acknowledged understanding of concepts and follow up plan. Specific signs and symptoms that would indicate the need for higher level of care were discussed in detail warranting prompt ER evaluation. YOLANDA Barnes documented in this encounter [facility] 07-25-2022 Note HNO ID: [id number] Author: Roberto Testrake Service: ? Author Type: Physician Type: Progress Notes Filed: 07/25/2022 3:47 PM Note Text: Last saw Dr. Olivas: 07/12/22 Subjective: Patient presents to clinic c/o painful toenails. They state that the nails are especially painful with shoe gear and pressure. Patient admits to being diabetic. Patient reports was recently admitted in hospital for blisters/cellulitis of lower extremity. He is now back home. No other pedal complaints at this time. Patient states no change in medications or medical history since last visit. Objective: Patient presents to clinic ambulating [facility] Vasc: DP and PT pulses are nonpalpable bilateral. CFT is less than 5 seconds bilateral. Skin temperature is warm to cool proximal to distal bilateral. There is severe edema or varicosities noted. No calf pain present Neuro: Protective sensation is absent to the foot and toes when tested with the 5.07 SWM bilateral. Vibratory sensation is absent at the hallux IPJ bilateral. The hallux is downgoing bilateral. Derm: Nails 1-5 b/l are painful, discolored-yellow, thick, crumbly, dystrophic and with subungal debris. The right hallux nail plate is discolored and has dry blood. The nail bed is intact without open wound. There is lifting of central and distal right hallux nail plate but proximal nail is intact. Skin is of normal turgor, texture and hair growth is absent bilateral. There are no hyperkeratosis, ulcerations, scars, verruca or other lesions noted. Ortho: Muscle strength is 5/5 for all pedal groups tested. Ankle joint DF is decreased with the knee extended with no pain or crepitus noted. 1st MPJ ROM is decreased bilateral. Assessment: (B35.1) Onychomycosis (primary encounter diagnosis) (M79.675) Pain in toe of left foot (M79.674) Pain in toe of right foot (I73.9) PAD (peripheral artery disease) ([facility]) (I87.2) Venous insufficiency Plan: Patient was seen and evaluated. Nails 1-5 bilateral were debrided in length and thickness. Right hallux nail plate was debrided to proximal 1/3 as it was found to be lifting. Due to expected pad and swelling, I do not feel removal is ideal option. Patient was instructed on the continued importance of diabetic foot care along with proper diet and keeping their blood sugar under control to prevent complications. Recommend continued elevation for lower extremity edema Recommend lotion to feet. No open sores noted. No signs of infection. Patient is to RTC in 3-4 months. Roberto Vizcaino DPM [facility] 07-25-2022 Note HNO ID: [id number] Author: Merlene Jackson LPN Service: ? Author Type: LICENSED NURSE Type: Progress Notes Filed: 07/25/2022 3:47 PM Note Text: Patient presents with: Left Foot - Diabetic Foot Care, Established Patient, Follow Up Right Foot - Diabetic Foot Care, Established Patient, Follow Up Patient presents with . Patient states that he was recently in hospital and had blisters to both feet. Patient has been in inpatient therapy. Merlene Jackson LPN [facility] 07-25-2022 History of Present illness Narrative Last saw Dr. Oilvas: 07/12/22 Subjective: Patient presents to clinic c/o painful toenails. They state that the nails are especially painful with shoe gear and pressure. Patient admits to being diabetic. Patient reports was recently admitted in hospital for blisters/cellulitis of lower extremity. He is now back home. No other pedal complaints at this time. Patient states no change in medications or medical history since last visit. Objective: Patient presents to [facility] Vasc: DP and PT pulses are nonpalpable bilateral. CFT is less than 5 seconds bilateral. Skin temperature is warm to cool proximal to distal bilateral. There is severe edema or varicosities noted. No calf pain present Neuro: Protective sensation is absent to the foot and toes when tested with the 5.07 SWM bilateral. Vibratory sensation is absent at the hallux IPJ bilateral. The hallux is downgoing bilateral. Derm: Nails 1-5 b/l are painful, discolored-yellow, thick, crumbly, dystrophic and with subungal debris. The right hallux nail plate is discolored and has dry blood. The nail bed is intact without open wound. There is lifting of central and distal right hallux nail plate but proximal nail is intact. Skin is of normal turgor, texture and hair growth is absent bilateral. There are no hyperkeratosis, ulcerations, scars, verruca or other lesions noted. Ortho: Muscle strength is 5/5 for all pedal groups tested. Ankle joint DF is decreased with the knee extended with no pain or crepitus noted. 1st MPJ ROM is decreased bilateral. Assessment: (B35.1) Onychomycosis (primary encounter diagnosis) (M79.675) Pain in toe of left foot (M79.674) Pain in toe of right foot (I73.9) PAD (peripheral artery disease) ([facility]) (I87.2) Venous insufficiency Plan: Patient was seen and evaluated. Nails 1-5 bilateral were debrided in length and thickness. Right hallux nail plate was debrided to proximal 1/3 as it was found to be lifting. Due to expected pad and swelling, I do not feel removal is ideal option. Patient was instructed on the continued importance of diabetic foot care along with proper diet and keeping their blood sugar under control to prevent complications. Recommend continued elevation for lower extremity edema Recommend lotion to feet. No open sores noted. No signs of infection. Patient is to RTC in 3-4 months. Roberto Vizcaino DPM Patient presents with: Left Foot - Diabetic Foot Care, Established Patient, Follow Up Right Foot - Diabetic Foot Care, Established Patient, Follow Up Patient presents with . Patient states that he was recently in hospital and had blisters to both feet. Patient has been in inpatient therapy. Merlene Jackson LPN documented in this encounter [facility] 06-20-2022 Miscellaneous Notes Noted Agata Quiles APRN.KELSI Jorge PT restaurant assistant calling report that patients reported to him that he had a fall at 3 am this morning trying to get out of his recliner. Patient denied any injury and feels fine. documented in this encounter [facility] 05-31-2022 Miscellaneous Notes Rec'd records from [facility] pt was admitted TCU 05/21/22 and d/c 05/30/22 to the [facility] for rehab and [facility]. documented in this encounter [facility] 05-20-2022 History of Present illness Narrative CC: Patient presents with: Cough: Cough x 1 week HPI: Marcos Garcia is a 86 year old male who presents to the office with above complaint Symptoms began 6 days ago and include: Fever (?100.4F): No or Chills: No Cough: Yes Shortness of breath: No or Difficulty breathing: No Fatigue: Yes Muscle aches: No Headache: No New loss of smell or taste: No Sore throat: Yes Nasal congestion: Yes or Rhinorrhea: Yes Nausea: No or Vomiting: No Diarrhea: Yes Other Associated symptoms: post nasal drip. OTC meds/remedies that patient has tried: throat lozenges. Exposures: Sick contacts? No Family or close contacts with confirmed/probable COVID-19 in last 14 days? No COVID vaccine: yes and booster The ROS is otherwise negative. The patient's pmh, medications, allergies, and past visits are reviewed. PHYSICAL EXAM: BP 118/78 Pulse 69 Temp 36.8 C (98.2 F) (Tympanic) Resp 18 Wt 92.4 kg (203 lb 9.6 oz) SpO2 96% BMI 30.07 kg/m General appearance: tired/ill appearing, alert, cooperative, pleasant, in no acute distress Head: Normocephalic Eyes: conjunctiva pink and moist, no icterus, sclera white, non-injected Ears: Right ear: External ear/canal- Normal, TM - clear with good landmarks. Left ear: External ear/canal- Normal, TM - clear with good landmarks Nose: clear, no sinus tenderness. Oropharynx:No erythema, exudates or tonsillar hypertrophy. Neck:supple and no adenopathy Heart: Negative. RRR without obvious murmur, gallop, or rubs. No ectopy. Lungs: without rales or wheeze, good air exchange, diminished breath sounds left upper lobe posteriorly ASSESSMENT/PLAN: 1. Acute cough - ICD9: 786.2, ICD10: R05.1 (primary diagnosis) - Meets symptom-based criteria for testing and is high risk. - COVID swab collected at time of office visit - Instructed to isolate pending test results - Discussed symptom monitoring and supportive care - Red flag symptoms requiring follow up discussed - XR CHEST 2V FRONTAL/LAT tomorrow, radiology is not here today - COVID WITH FLUA+B, ROUTINE 2. Diarrhea, unspecified type - ICD9: 787.91, ICD10: R19.7 As above - COVID WITH FLUA+B, ROUTINE Prescription instructions reviewed with patient as applicable. Potential red flag symptoms discussed with the patient. Reviewed appropriate action plan to take if red flag symptoms occur. Patient agreeable to treatment plan. Agata Quiles APRN.[employer] INSTALLER documented in this encounter [facility] 04-20-2022 Instructions Perry Olivas MD - 04/20/2022 10:46 AM EDT FASTING LABS IN . REQUEST EYE EXAM REPORT, DR. LOPEZ. documented in this encounter [facility] 04-20-2022 History of Present illness Narrative This note was created using [employer]port[employer]. Subjective Marcos Garcia is a 86 year old male here with his . He fell in his garage and could not get up. He was evaluated in the ER 04/13/22. CT brain showed no acute changes. Xrays of knees and spine showed degenerative joint disease with no acute findings. He was diagnosed with knee contusions and back strain. He was better. He normally ambulated with a walker. He was admitted 03/13/22-03/15/22 at [facility] in [place] for CHF. He was diagnosed with moderate aortic stenosis. He was diuresed and discharged home. He followed with Dr. Ibarra. Review of Systems Constitutional: Negative. Respiratory: Negative. Cardiovascular: Positive for leg swelling. Negative for chest pain and palpitations. Musculoskeletal: Negative. Neurological: Negative for dizziness and headaches. 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 Chronic Kidney Disease, Without Long-Term Current Use of Insulin ([facility]) Primary Osteoarthritis Involving Multiple Joints Essential Hypertension Ashd (Arteriosclerotic Heart Disease) Cardiomyopathy, Ischemic VT (ventricular tachycardia) ([facility]) with AICD Bilateral Hearing Loss Neurogenic Claudication Due to Lumbar Spinal Stenosis Obesity, Class I, Bmi 30-34.9 Dermatophytosis of Nail Mood Disorder ([facility]) Gait Disturbance Paroxysmal Atrial Fibrillation (Hcc) Chronic Bilateral Low Back Pain Toe Ulcer, Left, Limited to Breakdown of Skin ([facility]) Current Outpatient Medications Medication Sig gabapentin (NEURONTIN) 100 mg capsule TAKE 1 CAPSULE BY MOUTH EVERY DAY AT BEDTIME sertraline (ZOLOFT) 50 mg tablet Take 1 tablet by mouth once daily. folic acid 1 mg tablet Take 1 tablet by mouth once daily. naltrexone capsule 4.5 mg (CPD) Take 1 capsule by mouth once daily. Clobetasol Propionate (TEMOVATE) 0.05 % external solution Apply 1 application to affected area once daily. rosuvastatin (CRESTOR) 10 mg tablet Take 10 mg by mouth once daily. Dr. Napier, [facility], Lipidology vit A/vit C/vit E/zinc/copper (PRESERVISION AREDS ORAL) Take 1 tablet by mouth twice daily. apixaban (ELIQUIS) 2.5 mg tab tab(s) Take 1 tablet by mouth twice daily. furosemide (LASIX) 40 mg tablet Take 2 tablets by mouth every morning AND 1 tablet daily before lunch. sacubitril-valsartan (ENTRESTO) 24-26 mg tablet Take 1 tablet by mouth twice daily. metoprolol succinate ER (TOPROL XL) 25 mg 24 hr tablet Take 1 tablet by mouth once daily. Per Dr. Ibarra. coenzyme Q10 (CO Q-10) 100 mg cap capsule Take 100 mg by mouth once daily. isosorbide mononitrate ER (IMDUR) 60 mg 24 hr tablet Take 60 mg by mouth once daily. nitroglycerin sublingual (NITROSTAT) 0.4 mg SL tablet Dissolve 1 tablet under the tongue as needed for Chest Pain. If no pain relief call 911. Cholecalciferol, Vitamin D3, 2,000 unit cap Take 1 capsule by mouth once daily. aspirin, enteric coated (ADULT LOW DOSE ASPIRIN) 81 mg EC tablet Take 1 tablet by mouth once daily. Vctxszeeswadj-Vjhtwluv-Ovcvex (CENTRUM SILVER) Tab Take 1 tablet by mouth once daily. No current facility-administered medications for this visit. Objective BP 108/62 Pulse 71 Wt 90.7 kg (200 lb) SpO2 97% BMI 29.53 kg/m Physical Exam Constitutional: General: He is not in acute distress. HENT: Head: Atraumatic. Cardiovascular: Rate and Rhythm: Normal rate and regular rhythm. Pulmonary: Effort: No respiratory distress. Breath sounds: Examination of the right-lower field reveals rales. Rales present. No wheezing. Musculoskeletal: General: No tenderness. Right lower le+ Pitting Edema present. Left lower le+ Pitting Edema present. Neurological: General: No focal deficit present. Mental Status: He is alert. Comments: On wheelchair. Gait not tested. Assessment and Plan 1. Fall, subsequent encounter - ICD9: V58.89, E888.9, ICD10: W19.XXXD (primary diagnosis) Fall precautions. Use walker at all times. 2. Gait disturbance - ICD9: 781.2, ICD10: R26.9 As above. 3. Controlled type 2 diabetes mellitus with stage 3 chronic kidney disease, without long-term current use of insulin ([facility]) - ICD9: 250.40, 585.3, ICD10: E11.22, N18.30 Controlled. 4. Aortic stenosis, moderate - ICD9: 424.1, ICD10: I35.0 Updated. 5. Cardiomyopathy, ischemic - ICD9: 414.8, ICD10: I25.5 Follow with cardiology. Call for weight gain, fluid retention. Perry Olivas MD documented in this encounter [facility] 03-28-2022 History of Present illness Narrative Patient presents for follow-up with [facility]. He presents today with his . PMH: CAD s/p ALAN to LAD x3, ALAN to OM1, and ALAN to mid RCA (first event at age 58); T2DM; AF; HTN; HFrEF: CKD Admission 03/13-03/15/22 for management of acute on chronic HFrEF. Improved with IV diuresis Current lipid lowering medications: Rosuvastatin 10 mg daily. (st 05/2019 at 2.5 mg every other day; incr 11/2019, incr 03/2020). ASSESSMENT: 1. Mixed Dyslipidemia: Secondary prevention patient with hx of TN and CAD s/p multiple interventions, possible FH, HTN, T2DM, and CKD at very high risk. Patient is a candidate for high intensity statin therapy but use has been limited by intolerance.. Targets of therapy below: LDL goal of: 50% reduction from baseline to <100 mg/dL and absolute reduction to <70mg/dL Non-HDL goal of: <100mg/dL Patient has achieved initial targets of therapy but has not achieved ideal targets. LDL >50% reduced from baseline but remains >70 mg/dL and nonHDL >100 mg/dL. Discussed potential options for escalation of therapy. Defer rosuva titration due to CKD with eGFR <30 mL/min. Also, due to current worsened back pain and prior hx myalgia on statin, prefer not to escalate at this time. In light of patient age and achievement of 50% reduction from baseline LDL, nearing ideal goals, will maintain same regimen at this time. Pt will also try to incorporate some physical activity. If escalation is warranted in future, pt would be open to retrial of ezetimibe (prior ADR of diarrhea) - consider low dose. Unclear of benefits of starting PCSK9i given age. Bempedoic acid may also be a consideration, did not screen/ discuss with patient. 2. CAD: No current complaints. s/p multiple stents to LAD, OM1, and RCA and angioplasty to RCA. Current regimen includes aspirin 81 mg daily, furosemide, , isosorbide MN, metoprololm and nitroglycerin PRN (denies any use). Follows with Dr. Ibarra ([facility]) 3. HTN/HFrEF: BP controlled today. Current regimen includes: valsartan-sacbutril, metoprolol succinate, isosorbide mononitrate, and furosemide. Follows with Dr. Olivas/Dr Ibarra. 4. CKD Stage 3: Consideration for drug dosing. Managed by Dr. Olivas. 03/2022 eGFR 30 mL/min/1.72m2 per. Max dose of rosuvastatin is 10mg daily for eGFR <30. 5. T2DM/ Impaired A1C: Does not SMBG. 03/2022 A1C 7.2%, increased from prior. Not on medication at this time. Follows with Dr. Brito. PLAN: 1. Continue rosuvastatin 10 mg every day 2. Recommend heart healthy dietary habits. See below for full heart healthy diet recommendations. 3. Recommend resuming aerobic exercise regimen as you are able, with target of at least 150 minutes per week. Consider trying to walk 10 minutes a day (up and down driveway) 4. Next visit in 6 months in [facility] clinic. If questions, call: [phone]. Lab orders faxed to [facility] (phone [phone], fax [phone]) Shireen Mcgarry ([facility]), PharmD, BCPS, CLS, BCGP Specialty Practice Pharmacist [facility] Pertinent Drug Interactions: None SUBJECTIVE: Referring provider: Dr. Lenard Nails, Current PCP: Dr. Perry Olivas MD (PCP) Current electromechanical technician: Dr. Jose Ibarra MD (Cardio) SH: Retired and ; lives with his Compliance with his/her medication regimen is excellent. assists with medication adherence and fills pill box each week. He denies side effects with current regimen. Lifestyle habits: Eating behaviors: stable from historic. His helps with his adherence to dietary restrictions. Currently restricting sodium to 2,000 mg /day Breakfast - oatmeal with blueberries, mini shredded wheat, almond milk, decaf coffee Lunch - trying to have heavier lunch and blue leather sorter dinner now. Maybe tomato sandwich with pepper; occ tuna sandwich (tuna in water and rinses) Dinner - scrambled egg beaters with onions/ green peppers and toast Protein - primarily chicken; she is thinking about incorporating tofu Beverages - decaf tea, occ decaf coffee Buys some frozen foods but only if sodium <550 mg per serving They sometimes eat out at [employer] and are mindful to check sodium content Exercise habits: similar to historic. has been trying to get him to walk up and down the driveway or up the street but has been challenging. Activity historically limited by knee and back pain. Going to therapy 2x/week 35-45 min and walks around the building. States that they are primarily doing leg exercises. He works on some core strengthening exercises/ twisting at the waist. Patient achieving some of recommended 150 minutes per week currently. Aerobic activity: No Weight training: No Former smoker (while in the [place]) quit 1979 for 15 pack-years. Family history of ASCVD or HLD: Maternal cousin: waiting for heart transplant OBJECTIVE: Clinical ASCVD determination: Patient does have a history of major clinical ASCVD events including arterial revascularization s/p multiple stents to LAD, FRANK, and RCA and angioplasty to RCA. Was deemed not a candidate for CABG per [facility] Relevant imaging and procedures include: s/p ALAN to LAD x3, ALAN to OM1, and ALAN to mid RCA (first event at age 58) US Carotid (02/25/18): Common carotid: Plaque visualized, no significant stenosis Internal carotid: 60-79% stenosis Subclavian: plaque visualized, no significant stenosis Common carotid: plaque visualized, no significant stenosis Internal carotid: 20-39% stenosis [facility] 08/01/17 Prior LAD and OM stents appear patent with improvement in appearance of septal perforators upon comparing the angiogram to previous study , Aortic valve not crossed Lesion #1: The mid RCA lesion was pre-dilated ( BALL QUANTUM APEX 2.00X15) and treated with DESx1 ( XIENCE ALPIN 3X33). After deployment there was no residual stenosis, no evidence of dissection and CARLOS III flow distally. Lesion #2: The distal RCA lesion was treated with POBA only (BALL QUANTUM APEX 2.00X15). After POBA there was 10% residual stenosis, no evidence of dissection and CARLOS III flow distally. [facility] (07/04/17): Lesion #1: The mid LAD lesion was pre-dilated (BALL QUANTUM APEX 3.00X20) and treated with DESx1 (JM RX 3.0X34). After deployment there was no residual stenosis, no evidence of dissection and CARLOS III flow distally. Stent was post dilated (BALL QUANTUM APEX 3.00X20) Lesion #2: The proximal LAD lesion was pre-dilated (BALL QUANTUM APEX 3.00X20) and treated with two overlapping DESx2 (XIENCE ALPIN 3X38;JM RX 3.00X12 ). After deployment there was no residual stenosis, no evidence of dissection and CARLOS III flow distally. Stent was post dilated (BALL QUANTUM APEX 3.00X20) IVUS interrogation of left main-LAD revealed well apposed stent,adequate lesion coverage with no evidence of significant disease at left main (MLA ~10 mm2) Lesion #3: The proximal high OM1 lesion was pre-dilated (BALL 2.7 X 15 RX NC EUPHO) and treated with DESx1 (JM RX 2.75X15) KRIS (05/01/17): Right side: 1.23 Left side: 1.15 Stress test (06/21/94): No ischemic regions noted LHC (06/20/94; age 58): 100% stenosis of ant trunk, 25-50% of 1st diagonal, 75-95% stenosis of OM1, 10-25% stenosis of Cx and RCA Patient also has the following high risk conditions: H/o TN other than within the last 12 months AND Age > 65 years History of prior CABG or PCI outside of major ASCVD events (first event in 1993 at age 58) Diabetes mellitus HTN Chronic kidney disease (eGFR 15-59 mL/min/1.73m2) LDL-C > 100mg/dL despite maximally tolerated statin and ezetimibe History of congestive heart failure (EF 20% on 12/15/18) He does have baseline elevated LDL-C > 190 mg/dL but does not have evidence of genetic hyperlipidemias. [facility] diagnostic criteria score = 3 points which is possible FH Per NLA FH Guidelines, patient also has the following additional risk factors (>2 supports intensification of therapy): Age (men >30) Male Metabolic syndrome HTN (BP >140/90 or on treatment) He has Type 2 Diabetes; currently controlled w/o medications Patient also has the following diabetes-specific risk enhancers: Albuminuria > 30 mcg albumin/ mg creatinine eGFR <60mL/min/1.73m2 Additional ASCVD Risk Enhancers not captured above: LDL-C > 160 mg/dL on at least 3 measurements Chronic kidney disease Metabolic syndrome with history of (>3 meets criteria): abdominal obesity, HTN >135/85, and fasting glucose > 100mg/dL Pertinent negatives: KRIS, retinopathy, neuropathy VITALS: Date Weight (lb) BMI Waist (in) BP HR 06/10/19 187 27.67 42 138/72 74 04/06/20 191 28.21 45 94/58 08/09/21 197 30.85 109/70 69 03/28/22 201.2 29.71 49 98/66 72 LABS: Date TC HDL TG LDL Non- HDL <70 <100 01/25/03 295 56 124 214 211d 239 02/25/03 204 54 107 129 136d 150 05/09/04 222 52 140 142 150d 170 04/19/05 269 40 139 201 229 07/19/05 284 39 165 212 245 04/22/07 256 47 117 186 117d 209 07/28/07 254 43 185 174 211 12/28/08 259 45 135 187 214 06/12/10 254 51 103 182 203 09/11/10 271 47 101 203 224 08/13/11 296 52 143 215 244 04/08/13 282 54 128 202 228 08/10/13 262 51 143 182 211 07/08/14 246 57 93 170 189 04/16/16 238 48 101 170 190 04/22/17 187 44 71 129 143 08/01/17 218 46 57 161 172 04/30/18 225 49 124 151 176 04/27/19 164 10/27/19 204 43 157 130 161 11/18/19 194 43 162 119 151 03/22/20 162 42 189 82 120 08/03/20 163 37 169 92 126 12/05/20 281 47 192 196 234 04/13/21 149 43 154 75 106 08/01/21 171 58 114 90 113 01/26/22 151 45 148 76 106 03/26/22 156 43 168 79 113 Date Lp (a) Hs - Crp CK apoB Urine Protein 11/03/03 247 08/24/05 82 01/21/07 405 05/23/09 60 04/17/12 87 30 12/08/12 72 07/08/14 30 04/27/19 61 Date Glu Hb- A1c Alk Ph ALT AST T Bili Cr TSH 25 OH Vit D 02/14/18 64 78 27 21 0.7 1.53 2.590 04/30/18 108 6.1 80 33 20 1.2 1.64 10/29/18 5.6 01/27/19 88 6.2 2.15 04/27/19 101 5.8 1.98 10/27/19 124 6.1 2.05 11/18/19 82 17 14 0.7 03/22/20 54.1 05/02/20 123 6.3 93 10 23 2.47 08/03/20 116 01/05/21 119 2.37 08/01/21 123 76 28 16 0.6 2.32 2.30 03/13/22* 7.2 81 13 16 0.4 2.11 2.75 *admision for HF Previous lipid lowering medications include: Pt has tried multiple statins in the past - has had an episode of lip swelling with one of them but does not recall the name of the medication. Per outside records, pt has tried the following with listed myalgias to all. Pt does not recall dosing Simvastatin - myalgia Pravastatin - myalgia Atorvastatin - myalgia Rosuvastatin - myalgia Ezetimibe - diarrhea Possible predisposing factors for statin associated side effects: Age (>80y) Co-morbidities including renal dysfunction Referral history: Referral for Imaging testing: No Cardiac Export Packer: No Referred for consideration of clinical trial: No Last visit with lipid clinic MD: 08/09/2021 Dr. Napier The following Clinical Intervention(s) occurred during today's visit: Teaching/education provided to patient and or support team regarding dyslipidemia. Performed extensive analysis of lab results or medications specifically regarding dyslipidemia. The Outpatient Consult Agreement policy was communicated to the patient or legal guardian during clinic visit. Patient voiced understanding of agreement. While I did not have the opportunity to see this patient personally today, I reviewed and agree with the ongoing management as documented by my pharmacy colleague. Very good control on current regimen documented in this encounter [facility] 03-28-2022 Instructions Shireen Mcgarry RPH - 03/28/2022 8:40 AM EDT PLAN: Continue rosuvastatin 10 mg every day Recommend heart healthy dietary habits. See below for full heart healthy diet recommendations. Recommend resuming aerobic exercise regimen as you are able, with target of at least 150 minutes per week. Consider trying to walk 10 minutes a day (up and down driveway) Next visit in 6 months in [facility] lipid clinic. If questions, call: [phone]. Lab orders faxed to [facility] (phone [phone], fax [phone]) VITALS: Date Weight (lb) BMI Waist (in) BP HR 06/10/19 187 27.67 42 138/72 74 04/06/20 191 28.21 45 94/58 08/09/21 197 30.85 109/70 69 03/28/22 201.2 98/66 72 LABS: Date TC HDL TG LDL Non- HDL <70 <100 01/25/03 295 56 124 214 211d 239 02/25/03 204 54 107 129 136d 150 05/09/04 222 52 140 142 150d 170 04/19/05 269 40 139 201 229 07/19/05 284 39 165 212 245 04/22/07 256 47 117 186 117d 209 07/28/07 254 43 185 174 211 12/28/08 259 45 135 187 214 06/12/10 254 51 103 182 203 09/11/10 271 47 101 203 224 08/13/11 296 52 143 215 244 04/08/13 282 54 128 202 228 08/10/13 262 51 143 182 211 07/08/14 246 57 93 170 189 04/16/16 238 48 101 170 190 04/22/17 187 44 71 129 143 08/01/17 218 46 57 161 172 04/30/18 225 49 124 151 176 04/27/19 164 10/27/19 204 43 157 130 161 11/18/19 194 43 162 119 151 03/22/20 162 42 189 82 120 08/03/20 163 37 169 92 126 12/05/20 281 47 192 196 234 04/13/21 149 43 154 75 106 08/01/21 171 58 114 90 113 01/26/22 151 45 148 76 106 03/26/22 156 43 168 79 113 Date Lp (a) Hs - Crp CK apoB Urine Protein 11/03/03 247 08/24/05 82 01/21/07 405 05/23/09 60 04/17/12 87 30 12/08/12 72 07/08/14 30 04/27/19 61 Date Glu Hb- A1c Alk Ph ALT AST T Bili Cr TSH 25 OH Vit D 02/14/18 64 78 27 21 0.7 1.53 2.590 04/30/18 108 6.1 80 33 20 1.2 1.64 10/29/18 5.6 01/27/19 88 6.2 2.15 04/27/19 101 5.8 1.98 10/27/19 124 6.1 2.05 11/18/19 82 17 14 0.7 03/22/20 54.1 05/02/20 123 6.3 93 10 23 2.47 08/03/20 116 01/05/21 119 2.37 08/01/21 123 76 28 16 0.6 2.32 2.30 03/13/22 7.2 81 13 16 0.4 2.75 documented in this encounter [facility] 03-15-2022 [facility] Marcos Garcia 1935 [id number] Assessment/Plan: Marcos Garcia is a 86 y.o. male with a history of CAD s/p TN, CHF s/p pacemaker and defibrillator, AFib, and CKD3 who presented to [facility] 03/13/2022 with 2-3 months of worsened dyspnea on exertion. On admit, Cr 2.11, troponin 73, BNP 3228. Improved with IV diuresis with Cardiology following. Acute on Chronic HFrEF: Presented with dyspnea on exertion and BLE swelling. Known history of CHF, EF 35% per family. S/p pacemaker and defibrillator ~2015 per family. Follows with Cardiology in [place]. BNP 3228 on admit with LE edema. LE Duplex negative for DVT. Repeat TTE 03/14/22 with stable EF ~35%. On decent home GDMT with NAKUL BB. CKD may limit MRA and SGLT2i. Improved with IV Lasix, transitioned back to PO on day of discharge. Cardiology following. Moderate aortic stenosis: Noted on TTE 03/13/22, mean gradient 7 mmHg with peak velocity 2.1 m/s, and valve area 1.1 cm2. No further management needed, can serially monitor with outpatient Cards. [facility]b: [facility]. Does not follow with a electroencephalographic technician. Cr within baseline on day of discharge. Renal US unremarkable. Held off Neph consult inpatient. Encouraged outpatient Neph referral. Elevated Troponin: initial troponin 73 then downtrended, EKG showed paced rhythm without ischemic changes. In setting of ELENI, known CAD. TTE without new WMAs. Cardiology followed as above. No further ischemic eval. CAD: history of TN in the past and thinks he had stents placed. Cardiac arrest while hospitalized in ~2015 per family. Intolerant to most statins; tolerates Crestor. Home ASA, Crestor, BB and nitrate continued. Atrial Fibrillation: by history, s/p DCCV in early 2021 per family. NSR on admit. BB and Eliquis continued. Code status: full code confirmed on admit with patient and family. DVT Prophylaxis: systemic anticoagulation with Eliquis for AFib Disposition Current living situation: home with . Was going to outpatient PT. Expected Disposition: home, outpatient PT/OT Estimated discharge date: 03/15/22 Family updated: updated 03/15/22 Subjective/Interval History: Today, I personally reviewed all new inpatient labs, vitals, radiology imaging, diagnostic tests, and notes from other providers. Relevant details summarized in my assessment/plan and objective data portion. Patient seen on day of discharge. Feels well and ready to go home. Transition to oral Lasix by cardiology team this morning. Discussed his moderate aortic stenosis with cardiology as well, no acute management, can continue serial monitoring as an outpatient. Greater than 35 minutes of time was spent counseling the patient, reviewing results and new recommendations, and coordinating care. Over 50% of this time was spent [id number] with the patient. Physical Exam: BP 134/82 (BP Location: Left arm, Patient Position: Lying) Pulse 70 Temp 97.4 F (36.3 C) (Oral) Resp 16 Ht 5' 9 Wt 89.3 kg (196 lb 13.9 oz) SpO2 94% BMI 29.07 kg/m General: No acute distress Eyes: Extraocular movements intact ENT: Neck supple, oral mucosa moist without lesions Cardiovascular: Regular rate and rhythm Respiratory: Clear to auscultation Gastrointestinal: Soft, non tender Genitourinary: No suprapubic tenderness Musculoskeletal: 1+ BLE peripheral edema. Skin: Warm, dry Neuro: Alert and conversational Psych: Mood appropriate Current Medications: apixaban 2.5 mg Oral BID aspirin 81 mg Oral Daily with lunch folic acid 1,000 mcg Oral QAM gabapentin 100 mg Oral at bedtime isosorbide mononitrate 60 mg Oral QAM metoprolol succinate 25 mg Oral QAM rosuvastatin 10 mg Oral Daily sacubitriL-valsartan 1 tablet Oral BID sertraline 50 mg Oral QAM sodium chloride (PF) 5 mL Intravenous Q8H [facility] Labs, Imaging and Studies reviewed: Results from last 7 days Lab Units 03/14/22 0111 03/13/22 1347 WBC K/mcL 5.59 4.81 HGB g/dL 12.2* 13.5 HCT % 40.5* 43.1 PLT K/mcL 147* 172 Results from last 7 days Lab Units 03/14/22 0111 03/13/22 1347 SODIUM mmol/L 142 143 POTASSIUM mmol/L 3.5 3.9 CHLORIDE mmol/L 104 104 BICARB mmol/L 28 27 BUN mg/dL 27* 28* CREATININE mg/dL 2.05* 2.11* EGFR mL/min/1.73 m2 31* 30* GLUCOSE mg/dL 141* 166* CALCIUM mg/dL 9.8 9.6 Results from last 7 days Lab Units 03/14/22 0111 03/13/22 1347 ALT U/L 8 13 AST U/L 12 16 ALK PHOS U/L 69 81 BILIRUBIN TOTAL mg/dL 0.5 0.4 Results from last 7 days Lab Units 03/14/22 011 INR 1.3* Care Management Consult Note Date: 03/15/2022 Time: 12:35 PM Patient Name: Marcos Garcia Date of : 1935 Reason for Consult: Discharge Needs Discharge Plan: D/C Disposition: Home HME: Tub/Shower chair Community/Outpatient Referral: Outpatient rehab Same As Recommended : yes Regulatory Documentation: Medicare IM Regulatory Documentation Status: Certified Discharging Transportation Plan: Transportation Type: Auto Discharge Plan Status: Home Assessment and Background Information: Living Arrangements: Spouse/significant other Support Systems: Spouse/significant other Assistance Needed: Yes Type of Residence: Private residence Prior to Admission Home Care Services: No Patient expects to be discharged to:: Home Does the patient need discharge transport arranged?: No CM met with patient and spouse at bedside. Patient is current with [facility] for O/P PT/OT. Patient will resume services. Tub seat ordered to be delivered to patients room prior to discharge. [facility] Inpatient Progress Note 03/14/2022 Marcos Garcia 1935 [id number] Assessment/Plan: Marcos Garcia is a 86 y.o. male with a history of CAD s/p TN, CHF s/p pacemaker and defibrillator, Afib, and CKD who presented to [facility] 03/13/2022 with 2-3 months of worsened dyspnea on exertion. On admit, Cr 2.11, troponin 73, BNP 3228. EKG paced. CXR, CT C/A/P and CT T/L spine nonacute. Dyspnea on Exertion: worsened in past few months, unable to walk more than 10 steps without feeling like he will pass out due to dyspnea. TSH, LFTs normal on admit. CT C/A/P and CT T/L on admit nonacute. Cardiac workup as below. PTOT. Acute on Chronic HFrEF: history of CHF, EF 35% per family. S/p pacemaker and defibrillator ~2016 per family. Follows with Cardiology in [place]. BNP 3228 on admit with LE edema. On decent home GDMT with NAKUL, BB. CKD may limit MRA and SGLT2i. Check LEVD, interrogate device. Continue IV lasix. Check TTE. Cardiology consulted. CKD3b: Baseline Cr per [facility] appears 2-2.4, dating back to 2019. Cr 2.11 on admit. Does not follow with a electroencephalographic technician. Renal US pending. Monitor while diuresing. Hold Neph consult inpatient unless worsening from baseline. Encouraged outpatient Neph referral. Elevated Troponin: initial troponin 73, EKG showed paced rhythm. In setting of ELENI, known CAD. Cycle troponins, check TTE. Cardiology consulted as above. CAD: history of TN in the past and thinks he had stents placed. Cardiac arrest while hospitalized in ~2016 per family. Intolerant to most statins; tolerates crestor. Home ASA, crestor, BB and nitrate continued. Atrial Fibrillation: by history, s/p DCCV in early 2021 per family. NSR on admit. BB and eliquis continued. Code status: full code confirmed on admit with patient and family. DVT Prophylaxis: systemic anticoagulation with Eliquis for AFib Disposition Current living situation: home with . Was going to outpatient PT. Expected Disposition: home likely. PTOT pending. Estimated discharge date: 03/15/22 Family updated: updated 03/14/22. Subjective/Interval History: Today, I personally reviewed all new inpatient labs, vitals, radiology imaging, diagnostic tests, and notes from other providers. Relevant details summarized in my assessment/plan and objective data portion. New to me, I/O not completed charted. Got 3x IV Lasix yesterday. Will consider re-dosing, Cards c/s also pending. Renal U/S images personally reviewed, no hydro, a few large renal cysts. Patient is new to me, seen at bedside with his . His hearing aids in conversation, so some difficulty in communication. He does corroborate his story of few months of progressive dyspnea, fatigue, lower extremity swelling. Reviewed home med list with the patient's , scanned in chart. Notably he has been taking Lasix 80 mg in the morning and 40 mg in the afternoon consistently. With his worsening symptoms of heart failure, his outpatient electromechanical technician had increased to 80 twice a day. However per his with the additional 80 mg dose, patient complained about itching all over, so did not give any further oral Lasix, and presented to his local hospital. Discussed case with Cards, okay to discharge. Will give another day of IV Lasix, then transition back to home PO regimen tomorrow. Physical Exam: BP (!) 142/84 (BP Location: Left arm, Patient Position: Lying) Pulse 71 Temp 97.9 F (36.6 C) (Oral) Resp 18 Ht 5' 9 Wt 89.3 kg (196 lb 13.9 oz) SpO2 91% BMI 29.07 kg/m General: No acute distress Eyes: Extraocular movements intact ENT: Neck supple, oral mucosa moist without lesions Cardiovascular: Regular rate and rhythm Respiratory: Clear to auscultation Gastrointestinal: Soft, non tender Genitourinary: No suprapubic tenderness Musculoskeletal: 1+ BLE peripheral edema. Skin: Warm, dry Neuro: Alert and conversational Psych: Mood appropriate Current Medications: apixaban 2.5 mg Oral BID aspirin 81 mg Oral Daily with lunch folic acid 1,000 mcg Oral QAM gabapentin 100 mg Oral at bedtime isosorbide mononitrate 60 mg Oral QAM metoprolol succinate 25 mg Oral QAM rosuvastatin 10 mg Oral Daily sacubitriL-valsartan 1 tablet Oral BID sertraline 50 mg Oral QAM sodium chloride (PF) 5 mL Intravenous Q8H [facility] Labs, Imaging and Studies reviewed: Results from last 7 days Lab Units 03/14/22 0111 03/13/22 1347 WBC K/mcL 5.59 4.81 HGB g/dL 12.2* 13.5 HCT % 40.5* 43.1 PLT K/mcL 147* 172 Results from last 7 days Lab Units 03/14/22 0111 03/13/22 1347 SODIUM mmol/L 142 143 POTASSIUM mmol/L 3.5 3.9 CHLORIDE mmol/L 104 104 BICARB mmol/L 28 27 BUN mg/dL 27* 28* CREATININE mg/dL 2.05* 2.11* EGFR mL/min/1.73 m2 31* 30* GLUCOSE mg/dL 141* 166* CALCIUM mg/dL 9.8 9.6 Results from last 7 days Lab Units 03/14/22 0111 03/13/22 1347 ALT U/L 8 13 AST U/L 12 16 ALK PHOS U/L 69 81 BILIRUBIN TOTAL mg/dL 0.5 0.4 Results from last 7 days Lab Units 03/14/22 011 INR 1.3* documented in this encounter [facility] 03-15-2022 Hospital course Narrative Images from the original note were not included. [facility] DISCHARGE SUMMARY Marcos Garcia Account: [id number] Admitted: 03/13/2022 Discharge Date/Time: 03/15/22 / 3:46 PM ___ Handoff to PCP Routine hospital follow up Clinical Summary Marcos Garcia is a 86 y.o. male with a history of CAD s/p TN, CHF s/p pacemaker and defibrillator, AFib, and CKD3 who presented to [facility] 03/13/2022 with 2-3 months of worsened dyspnea on exertion. On admit, Cr 2.11, troponin 73, BNP 3228. Improved with IV diuresis with Cardiology following. Acute on Chronic HFrEF: Presented with dyspnea on exertion and BLE swelling. Known history of CHF, EF 35% per family. S/p pacemaker and defibrillator ~2016 per family. Follows with Cardiology in [place]. BNP 3228 on admit with LE edema. LE Duplex negative for DVT. Repeat TTE 03/14/22 with stable EF ~35%. On decent home GDMT with ARNI, BB. CKD may limit MRA and SGLT2i. Improved with IV Lasix, transitioned back to PO on day of discharge. Cardiology following. Moderate aortic stenosis: Noted on TTE 03/13/22, mean gradient 7 mmHg with peak velocity 2.1 m/s, and valve area 1.1 cm2. No further management needed, can serially monitor with outpatient Cards. CKD3b: Baseline Cr per [facility]where appears 2-2.4, dating back to 2019. Does not follow with a electroencephalographic technician. Cr within baseline on day of discharge. Renal US unremarkable. Held off Neph consult inpatient. Encouraged outpatient Neph referral. Elevated Troponin: initial troponin 73 then downtrended, EKG showed paced rhythm without ischemic changes. In setting of ELENI, known CAD. TTE without new WMAs. Cardiology followed as above. No further ischemic eval. CAD: history of TN in the past and thinks he had stents placed. Cardiac arrest while hospitalized in ~2016 per family. Intolerant to most statins; tolerates Crestor. Home ASA, Crestor, BB and nitrate continued. Atrial Fibrillation: by history, s/p DCCV in early 2021 per family. NSR on admit. BB and Eliquis continued. Discharge Medications Medication List CONTINUE taking these medications aspirin 81 MG EC tablet cholecalciferol (vitamin D3) 125 mcg (5,000 unit) capsule clobetasoL 0.05 % scalp solution Commonly known as: TEMOVATE coenzyme Q10 100 mg capsule Eliquis 2.5 mg Tab Generic drug: apixaban Entresto 24-26 mg per tablet Generic drug: sacubitriL-valsartan folic acid 1 MG tablet Commonly known as: FOLVITE * furosemide 40 MG tablet Commonly known as: LASIX * furosemide 40 MG tablet Commonly known as: LASIX gabapentin 100 MG capsule Commonly known as: NEURONTIN isosorbide mononitrate 60 MG 24 hr tablet Commonly known as: IMDUR metoprolol succinate 25 MG 24 hr tablet Commonly known as: TOPROL-XL PRESERVISION AREDS ORAL rosuvastatin 10 MG tablet Commonly known as: CRESTOR sertraline 50 MG tablet Commonly known as: ZOLOFT * This list has 2 medication(s) that are the same as other medications prescribed for you. Read the directions carefully, and ask your doctor or other care provider to review them with you. Physician(s) Family: Perry Olivas MD, , Address: [address] [place] [address] / [place] [address] Follow Up: [facility] [address] [place] [address] Follow up Thank you for allowing us to participate in your care. Please continue to follow up with your primary electromechanical technician, Dr. Ibarra as planned. Additional Information: Patient seen on day of discharge. Feels well and ready to go home. Transition to oral Lasix by cardiology team this morning. Discussed his moderate aortic stenosis with cardiology as well, no acute management, can continue serial monitoring as an outpatient. Physical Exam: BP 134/82 (BP Location: Left arm, Patient Position: Lying) Pulse 70 Temp 97.4 F (36.3 C) (Oral) Resp 16 Ht 5' 9 Wt 89.3 kg (196 lb 13.9 oz) SpO2 94% BMI 29.07 kg/m General: No acute distress Eyes: Extraocular movements intact ENT: Neck supple, oral mucosa moist without lesions Cardiovascular: Regular rate and rhythm Respiratory: Clear to auscultation Gastrointestinal: Soft, non tender Genitourinary: No suprapubic tenderness Musculoskeletal: 1+ BLE peripheral edema. Skin: Warm, dry Neuro: Alert and conversational Psych: Mood appropriate For more information regarding patient's care, including complete radiology reports, please contact [facility] at Patient instructions, including activity, were given to the patient/family at discharge. Please see the After Visit Summary in the medical record for details. Time spent on discharge: > 30 minutes Completed by: Weston Zavala on 03/15/22, 3:46 PM documented in this encounter [facility] 03-15-2022 Hospital Discharge instructions Weston aZvala MD - 03/15/2022 10:56 AM EDT Make sure to follow-up with your electromechanical technician Dr. Ibarra within the next 2-3 weeks. He should check blood work too to monitor your kidney function and electrolytes. Please request for a Nephrology referral from your primary care doctor, to monitor your stage 3 chronic kidney disease. Continue your home regimen of Lasix. documented in this encounter [facility] 03-15-2022 Note Formatting of this n ote might be different from the original. CARDIOLOGY BRIEF NOTE Echocardiogram reviewed. No change in overall left ventricular systolic function. Moderate, low gradient aortic stenosis noted. This does not need acute intervention. Patient can follow-up with his primary electromechanical technician for serial monitoring. [facility] Work Phone: 03-15-2022 Miscellaneous Notes CARDIOLOGY BRIEF NOTE Echocardiogram reviewed. No change in overall left ventricular systolic function. Moderate, low gradient aortic stenosis noted. This does not need acute intervention. Patient can follow-up with his primary electromechanical technician for serial monitoring. Asked to review device interrogation. DEVICE: [employer] biventricular ICD. The patient underwent upgrade from a single to a biventricular ICD system in 2019 at the [facility]. The patient was noted to have an elevated RV capture threshold at the time. The patient's device is followed by a electromechanical technician in [facility]. The patient's interrogation demonstrated noncapture of his right ventricular pacing lead at its current settings. The device was reprogrammed with an output of 5 V at 1 ms but capture threshold was at 5.5 V at 1 ms. Device was reprogrammed to an output of 6.5 at 1 ms. LV threshold was stable. The patient otherwise has been in a chronic atrial fibrillation for at least a year. The patient has a 98% pacing burden and is pacing dependent. I reviewed the results of the interrogation with the patient's . The patient has an appointment with her device electromechanical technician in the next week. She wrote down the details and will communicate these findings with him. Please call if additional questions or concerns. documented in this encounter [facility] 03-15-2022 Consult note Formatting of th is note is different from the original. Physical Therapy PHYSICAL THERAPY EVALUATION Skilled Therapy Needs After Discharge Anticipate Resolution of Current Assessment Limitations Including: Mechanical Barriers Are Skilled Therapy Services Needed After Discharge: Yes Intensity of Skilled Therapy: 2-3 days per week Anticipated Duration of Skilled Therapy: Duration 10 - 30 days DME Recommendation: Tub seat DME Rationale: Patient's condition creates an increased risk of safety hazard without recommended equipment, Patient will require increased level of care without recommended equipment Rehab Potential: Good Outcomes Measures Prior Function - Basic Mobility Raw Score: 24 Points Prior Function - Basic Mobility % Impaired: 0% AM-PAC Basic Mobility Raw Score: 18 Points AM-PAC Basic Mobility % Impaired: 40.47% Physical Therapy Assessment History: The following factors influence the patient's participation in the PT plan of care: Personal Factors: Decreased Insight Environmental Factors: Steps to enter home The following co-morbidities (from this admission or prior) influence the patient's participation in this plan of care: CAD, CHF, A fib, CKD Number of History elements affecting this patient's PT plan of care: 3 or more Examination of Body Systems: The patient presents with: Musculoskeletal impairments: Functional Endurance Neurologic Impairments: Balance Cardiopulmonary Impairments: Activity Tolerance. These impairments result in limitations of Gait, Functional Transfers, Stair-Climbing, Safety, Activity Tolerance. These impairments result in restrictions of Household mobility, Community mobility. Number of Body Systems elements affecting this patient's PT plan of care: 4 or more. Clinical Presentation: The patient's clinical presentation for this PT evaluation is evolving with changing characteristics as evidenced by current PT documentation. Activity Tolerance Activity Tolerance: Tolerates 10 - 20 min activity with multiple rests Therapy Precautions Orthotic Devices: No Weight Bearing Status: WFL General Rehab Precautions: Fall risk Balance Assessment Sitting Balance - Static: Stand by assist Sitting Balance - Dynamic: Stand by assist Standing Balance - Static: Stand by assist Process Safety Management Engineer - Standing Static: wheeled walker Standing Balance - Dynamic: Contact guard assist Process Safety Management Engineer - Standing Dynamic: wheeled walker Bed Mobility Supine to Sit: Minimal assist, Head of bed elevated (Pt usually sleeps in recliner) Sit to Supine: (Pt in chair at end of session) Process Safety Management Engineer: bedrails, bed positioning mechanics Transfers Sit to Stand: Stand by assist (x1 from EOB) Process Safety Management Engineer: wheeled walker Gait/Locomotion Gait Assistance: Contact guard assist, Stand by assist Assistive Device: wheeled walker Distance: 100 Feet Pattern: step through, R decreased step length, L decreased step length, forward flexed, decreased steve (steps per minute) (very kyphotic but is pt's baseline) Gait Loss(es) of Balance: (no overt LOB) Environment/Terrain: open/community environment, multiple distractions Stair Management Technique: two rails, step-to pattern, forwards Stair Management Assistance: Contact guard assist Number of Stairs: 3 Additional Assessment Details Pt tolerated session well on room air and was able to ambulate in the hallway and compelte stairs with min GRIFFITH. Pt reported he was not fatigued after mobility. Pt required multiple cues to improve upright posture with gait. Spouse reports that pt was completing outpatient PT before admission. Pt and spouse educated on continued use of wheeled walker to improve safety at home as well as energy conservation. Home Living Obtained Home Living and PLOF info from: Patient Lives With: Spouse Type of Home: House Home Layout: Multi-level, Stairs between floors (has been staying on bottom floor in recliner.) Steps to enter home: Yes Rails to enter home: 1 rail Number of stairs to enter home: 3 Bathroom Shower/Tub: Tub/shower unit, Second level, Walk-in shower, Basement Bathroom Equipment: Grab bars in shower Mobility Equipment: Cane, Wheeled walker Additional Objective Details - Home Living: pt reports a fall in the shower a few weeks ago, and fall while shoveling last winter Prior Level of Function Receives Help From: Family Level of [place] - Transfers/Ambulation/Mobility: Independent with functional transfers, Independent with household ambulation, Independent with community ambulation Level of [place] - ADLs: Independent Driving: Patient does not drive (license ) Past Medical History: Diagnosis Date CHF (congestive heart failure) (HCC) Coronary artery disease Diabetes mellitus (HCC) Hyperlipidemia Myocardial infarction (HCC) Renal disorder Past Surgical History: Procedure Laterality Date CARDIAC CATHETERIZATION CARDIAC PACEMAKER PLACEMENT JOINT REPLACEMENT ORTHOPEDIC SURGERY For complete objective data, detailed plan of care and patient education refer to: PT Evaluation flowsheet, PT Evaluation and Treatment flowsheet, PT Treatment flowsheet, patient Plan of Care, Plan of Care progress note, and Patient Education. This note stands as the current Discharge Summary upon patient discharge from the hospital or completion of Physical Therapy Plan. [facility] 03-15-2022 Consult note Formatting of th is note is different from the original. Physical Therapy PHYSICAL THERAPY EVALUATION Skilled Therapy Needs After Discharge Anticipate Resolution of Current Assessment Limitations Including: Mechanical Barriers Are Skilled Therapy Services Needed After Discharge: Yes Intensity of Skilled Therapy: 2-3 days per week Anticipated Duration of Skilled Therapy: Duration 10 - 30 days DME Recommendation: Tub seat DME Rationale: Patient's condition creates an increased risk of safety hazard without recommended equipment, Patient will require increased level of care without recommended equipment Rehab Potential: Good Outcomes Measures Prior Function - Basic Mobility Raw Score: 24 Points Prior Function - Basic Mobility % Impaired: 0% AM-PAC Basic Mobility Raw Score: 18 Points AM-PAC Basic Mobility % Impaired: 40.47% Physical Therapy Assessment History: The following factors influence the patient's participation in the PT plan of care: Personal Factors: Decreased Insight Environmental Factors: Steps to enter home The following co-morbidities (from this admission or prior) influence the patient's participation in this plan of care: CAD, CHF, A fib, CKD Number of History elements affecting this patient's PT plan of care: 3 or more Examination of Body Systems: The patient presents with: Musculoskeletal impairments: Functional Endurance Neurologic Impairments: Balance Cardiopulmonary Impairments: Activity Tolerance. These impairments result in limitations of Gait, Functional Transfers, Stair-Climbing, Safety, Activity Tolerance. These impairments result in restrictions of Household mobility, Community mobility. Number of Body Systems elements affecting this patient's PT plan of care: 4 or more. Clinical Presentation: The patient's clinical presentation for this PT evaluation is evolving with changing characteristics as evidenced by current PT documentation. Activity Tolerance Activity Tolerance: Tolerates 10 - 20 min activity with multiple rests Therapy Precautions Orthotic Devices: No Weight Bearing Status: WFL General Rehab Precautions: Fall risk Balance Assessment Sitting Balance - Static: Stand by assist Sitting Balance - Dynamic: Stand by assist Standing Balance - Static: Stand by assist Process Safety Management Engineer - Standing Static: wheeled walker Standing Balance - Dynamic: Contact guard assist Process Safety Management Engineer - Standing Dynamic: wheeled walker Bed Mobility Supine to Sit: Minimal assist, Head of bed elevated (Pt usually sleeps in recliner) Sit to Supine: (Pt in chair at end of session) Process Safety Management Engineer: bedrails, bed positioning mechanics Transfers Sit to Stand: Stand by assist (x1 from EOB) Process Safety Management Engineer: wheeled walker Gait/Locomotion Gait Assistance: Contact guard assist, Stand by assist Assistive Device: wheeled walker Distance: 100 Feet Pattern: step through, R decreased step length, L decreased step length, forward flexed, decreased steve (steps per minute) (very kyphotic but is pt's baseline) Gait Loss(es) of Balance: (no overt LOB) Environment/Terrain: open/community environment, multiple distractions Stair Management Technique: two rails, step-to pattern, forwards Stair Management Assistance: Contact guard assist Number of Stairs: 3 Additional Assessment Details Pt tolerated session well on room air and was able to ambulate in the hallway and compelte stairs with min GRIFFITH. Pt reported he was not fatigued after mobility. Pt required multiple cues to improve upright posture with gait. Spouse reports that pt was completing outpatient PT before admission. Pt and spouse educated on continued use of wheeled walker to improve safety at home as well as energy conservation. Home Living Obtained Home Living and PLOF info from: Patient Lives With: Spouse Type of Home: House Home Layout: Multi-level, Stairs between floors (has been staying on bottom floor in recliner.) Steps to enter home: Yes Rails to enter home: 1 rail Number of stairs to enter home: 3 Bathroom Shower/Tub: Tub/shower unit, Second level, Walk-in shower, Basement Bathroom Equipment: Grab bars in shower Mobility Equipment: Cane, Wheeled walker Additional Objective Details - Home Living: pt reports a fall in the shower a few weeks ago, and fall while shoveling last winter Prior Level of Function Receives Help From: Family Level of [place] - Transfers/Ambulation/Mobility: Independent with functional transfers, Independent with household ambulation, Independent with community ambulation Level of [place] - ADLs: Independent Driving: Patient does not drive (license ) Past Medical History: Diagnosis Date CHF (congestive heart failure) (HCC) Coronary artery disease Diabetes mellitus (HCC) Hyperlipidemia Myocardial infarction (HCC) Renal disorder Past Surgical History: Procedure Laterality Date CARDIAC CATHETERIZATION CARDIAC PACEMAKER PLACEMENT JOINT REPLACEMENT ORTHOPEDIC SURGERY For complete objective data, detailed plan of care and patient education refer to: PT Evaluation flowsheet, PT Evaluation and Treatment flowsheet, PT Treatment flowsheet, patient Plan of Care, Plan of Care progress note, and Patient Education. This note stands as the current Discharge Summary upon patient discharge from the hospital or completion of Physical Therapy Plan. Associated Order(s): IP CONSULT TO CARDIAC ELECTROPHYSIOLOGY Please refer to Dr Viveros note 9.14.22 3:55. Occupational Therapy OCCUPATIONAL THERAPY EVALUATION AND TREATMENT NOTE OCCUPATIONAL THERAPY EVALUATION Skilled Therapy Needs After Discharge Anticipate Resolution of Current Assessment Limitations Including: Mechanical Barriers, Social Support Are Skilled Therapy Services Needed After Discharge: Yes Intensity of Skilled Therapy: 2-3 days per week Anticipated Duration of Skilled Therapy: Duration 10 - 30 days DME Recommendation: Tub seat DME Rationale: Unreasonable time frame to complete ADL without recommended equipment, Patient's condition creates an increased risk of safety hazard without recommended equipment Rehab Potential: Good Outcomes Measures Prior Function Daily Activity Raw Score: 23 Prior Function Daily Activity % Impaired: 15.86% AM-PAC Daily Activity Raw Score: 18 AM-PAC Daily Activity % Impaired: 46.65% Occupational Therapy Assessment The patient's current functional participation deficits are UE dressing, grooming, LE dressing, bathing, toileting, home management, meal preparation, hobbies, functional mobility. This reduced independence will limit their life roles of premorbid level individual, spouse. The patient's co morbidities do significantly affect patient performance in the above activities and roles. The performance deficits are a result of musculoskeletal, cardiopulmonary, neurological impairment(s) in generalized debility, trunk, bilateral, lower extremity including strength, balance, acitvity tolerance, respiratory capacity, safety, and knowledge deficit. The patient's home setup is a barrier (3 ALEX home, 7 steps down to family room/recliner) for return to prior level of function. The patient's compliance is a quality control specialist to return to prior level of function. During the assessment, minimal to moderate modification of task was required and several treatment options were identified in the plan of care. This consultation required expanded review of the medical and therapy history. Activity Tolerance Therapy Precautions Orthotic Devices: No General Rehab Precautions: Fall risk Cognition Overall Cognitive Status: Within Functional Limits Arousal/Alertness: Appropriate responses to stimuli Orientation Level: Oriented X4 Safety Judgment: Decreased awareness of need for safety Problem Solving: Assistance required to implement solutions Attention: Attends to quiet environment Hearing Status: Hard of hearing, Hearing aide (not present) Social Interaction: Cooperative, Appropriate ADL Lower Body Dressing: Maximal assist (demos functional reach, min impairments Left hip) Toileting: Minimal assist IADL Bed Mobility Supine to Sit: Minimal assist, Head of bed flat Sit to Supine: Moderate assist Functional Transfers Sit to Stand: Minimal assist Bed to Chair Transfers: Contact guard assist Process Safety Management Engineer: wheeled walker Additional Functional Transfer Trial 2: Yes Sit to Stand Trial 2: Minimal assist Process Safety Management Engineer Trial 2: wheeled walker Additional Functional Transfer Trial 3: Yes Sit to Stand Trial 3: Minimal assist Bed to Chair Trial 3: Contact guard assist Process Safety Management Engineer Trial 3: wheeled walker Home Living Obtained Home Living and PLOF info from: Patient Lives With: Spouse Type of Home: House Home Layout: Multi-level, Stairs between floors (has been staying on bottom floor in recliner.) Steps to enter home: Yes Rails to enter home: 1 rail Number of stairs to enter home: 3 Bathroom Shower/Tub: Tub/shower unit, Second level, Walk-in shower, Basement Bathroom Equipment: Grab bars in shower Mobility Equipment: Cane, Wheeled walker Additional Objective Details - Home Living: pt reports a fall in the shower a few weeks ago, and fall while shoveling last winter Prior Level of Function Receives Help From: Family Level of [place] - Transfers/Ambulation/Mobility: Independent with functional transfers, Independent with household ambulation, Independent with community ambulation Level of [place] - ADLs: Independent Driving: Patient does not drive (license ) OCCUPATIONAL THERAPY TREATMENT NOTE Total Treatment Time (Total Session Time): 25 Minutes Cognitive Skills Development Self-Care / ADL Home Management / IADL Therapeutic Activities Bed Mobility Skilled Intervention Provided: verbal cues, tactile cues, demonstration, environmental setup/modification For: LE positioning, UE positioning, compensatory strategies, logroll technique, proper body mechanics, safe use of bedrails and/or equipment, safety during functional task(s) Resulting In: improved functional independence Functional Transfers Skilled Intervention Provided: verbal cues, environmental setup/modification, facilitation For: LE positioning, UE positioning, controlled descent, compensatory strategies, fall prevention, increased participation in mobility task, postural alignment, safety during functional task(s) Resulting In: improved balance Therapeutic Exercise Neuromuscular Reeducation Additional Treatment Details simulated home set up and engaged patient in in room and brief hallway mobility. wh. walker required this date for balance, typically uses a cane. cues required for safe descent and set up of transfers. consistent assistance for bed mobility this date (Has been sleeping in a recliner recently) Past Medical History: Diagnosis Date CHF (congestive heart failure) (HCC) Coronary artery disease Diabetes mellitus (HCC) Hyperlipidemia Myocardial infarction (HCC) Renal disorder Past Surgical History: Procedure Laterality Date CARDIAC CATHETERIZATION CARDIAC PACEMAKER PLACEMENT JOINT REPLACEMENT ORTHOPEDIC SURGERY For complete objective data, detailed plan of care and patient education refer to: OT Evaluation flowsheet, OT Evaluation and Treatment flowsheet, OT Treatment flowsheet, patient Plan of Care, Plan of Care progress note, and Patient Education. This note stands as the current Discharge Summary upon patient discharge from the hospital or completion of Occupational Therapy Plan of Care. Associated Order(s): IP CONSULT TO CARDIOLOGY General Cardiology Inpatient Consult Heart & [facility]ascular 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 SUPERVISOR-D -Presents with worsening dyspnea on exertion over the last 2 weeks and bilateral lower extremity pitting edema -reports compliance with low sodium diet per -does not check blood pressures at home -home regimen lasix 80 mg in AM and 40 mg about 5 hours later -NT proBNP 3K -Chest x-ray no acute findings, CT chest no significant findings -s/p IV lasix x 2 and reports BLE significantly improved, did have pitting edema prior to admit; still with pedal edema -currently feels improved on exam Elevated troponin -troponin T 73, 64 (12%), 65 (10%) -EKG paced -hx of CKD with creatinine of unknown baseline, currently at 2 -denies chest discomfort Coronary artery disease -s/p multi-vessel PCI to LAD, OM and RCA in 2018 -no recent ischemic evaluation Atrial fibrillation -per history s/p cardioversion earlier this year per -has TRAFFIC PERSONNEL SUPERVISOR-D in place and device interrogation this admit shows persistent afib for the past year, no ventricular high rates -tele with paced rhythm and appears to be in afib -CHADS2-VASc score: 5 (CHF, HTN, advanced age, and vascular) -chronically on reduced dose Eliquis at 2.5 mg BID Hypertension -does not check BP at home, reading here 142/89 PLAN: -continue IV diuresis and transition to PO dosing in AM. Could consider changing home lasix to PO torsemide for better response. -continue current cardiac medications including Entresto, Toprol XL, Imdur, asa, statin and Eliquis -no current indication for ischemic evaluation at this time. Dr. Kemp to see and final recommendations to follow Subjective Reason for Consultation: Acute on chronic heart failure History of Present Illness: Marcos Garcia is a 86 y.o. male with past medical history of coronary artery disease s/p PCIs, HFrEF ICM s/p TRAFFIC PERSONNEL SUPERVISOR-D, atrial fibrillation, CKD who presented to [facility] on 03/13/22 with worsening dyspnea on exertion and found to be in acute heart failure exacerbation. Patient states that for the past 2 weeks he has had progressive dyspnea on exertion, BLE edema with pitting edema, orthopnea. He believes he has only put on about 2 pounds of weight. He does not check his blood pressures at home. Denies chest pain, lh/dz or palpitations. He was instructed to increase as outpatient and did this for one dose but developed a rash so went back to chronic lasix dosing. Imaging: I independently reviewed the EKG and agree with the interpretation(s) with the following comments. EKG 12-lead Final Result by Interface, Lab Results In [place] [facility] (03/13/2022 1531) Review of Systems: The following system(s) were reviewed and negative. Pertinent positive and negative findings are noted in the HPI. [x] Const [x] Eyes [x] ENT [x] Resp [] CV [x] GI [x] [x] Neuro [x] Musc [x] Skin [x] Psych [x] Endo [x] Allergy [x] Heme/Lymph Past Medical History: Diagnosis Date CHF (congestive heart failure) (HCC) Coronary artery disease Diabetes mellitus (HCC) Hyperlipidemia Myocardial infarction (HCC) Renal disorder Past Surgical History: Procedure Laterality Date CARDIAC CATHETERIZATION CARDIAC PACEMAKER PLACEMENT JOINT REPLACEMENT ORTHOPEDIC SURGERY Family History Problem Relation Age of Onset Heart disease Father Social History Tobacco Use Smoking Status Former Types: Cigarettes Quit date: 1987 Years since quittin.7 Smokeless Tobacco Never Additional History Comments: None Allergies: Patient has no known allergies. Current Facility-Administered Medications Medication Dose Route Frequency Provider Last Rate Last Admin acetaminophen (TYLENOL) tablet 650 mg 650 mg Oral Q4H PRN Kristen Chau MD apixaban (ELIQUIS) tablet 2.5 mg 2.5 mg Oral BID Kristen Chau MD 2.5 mg at 03/14/22941 aspirin EC tablet 81 mg 81 mg Oral Daily with lunch Kristen Chau MD folic acid (FOLVITE) tablet 1,000 mcg 1,000 mcg Oral ABHAY Kristen Chau MD 1,000 mcg at 03/14/22941 gabapentin (NEURONTIN) capsule 100 mg 100 mg Oral at bedtime Kristen Chau MD 100 mg at 03/13/222323 isosorbide mononitrate (IMDUR) 24 hr tablet 60 mg 60 mg Oral ADELITA Chau MD 60 mg at 03/14/22941 melatonin tablet 3 mg 3 mg Oral Nightly PRN Kristen Chau MD 3 mg at 03/13/222323 metoprolol succinate (TOPROL-XL) 24 hr tablet 25 mg 25 mg Oral ADELITA Chau MD 25 mg at 03/14/22941 ondansetron (ZOFRAN-ODT) disintegrating tablet 4 mg 4 mg Oral Q6H PRN Kristen Chau MD Or ondansetron (ZOFRAN) injection 4 mg 4 mg Intravenous Q6H PRN Kristen Chau MD rosuvastatin (CRESTOR) tablet 10 mg 10 mg Oral Daily Kristen Chau MD 10 mg at 03/13/222323 sacubitriL-valsartan (ENTRESTO) 24-26 mg per tablet 1 tablet 1 tablet Oral BID Kristen Chau MD 1 tablet at 03/13/222323 sertraline (ZOLOFT) tablet 50 mg 50 mg Oral ABHAY Kristen Chau MD 50 mg at 03/14/22941 sodium chloride (PF) (NS) flush 5 mL 5 mL Intravenous PRN Azeb Dashawn Green PA-C And sodium chloride 0.9% (NS) 0-150 mL/hr Intravenous PRN Azeb [place], PA-C sodium chloride (PF) (NS) flush 5 mL 5 mL Intravenous PRN Kristen Chau MD And sodium chloride (PF) (NS) flush 5 mL 5 mL Intravenous Q8H LALI Kristen Chau MD And sodium chloride 0.9% (NS) 0-150 mL/hr Intravenous PRN Kristen Chau MD Objective: Physical Examination: BP (!) 142/89 (BP Location: Left arm, Patient Position: Lying) Pulse 70 Temp 97.9 F (36.6 C) Resp 18 Ht 5' 9 Wt 89.3 kg (196 lb 13.9 oz) SpO2 96% BMI 29.07 kg/m Constitutional: Alert, well appearing, not in distress.? Eyes: Conjunctivae/corneas clear. Lungs: Clear to auscultation, no wheezes, rales or rhonchi. Cardiovascular: Normal rate and regular rhythm, S1 and S2 normal, no murmurs noted, no carotid bruit, (+) pedal edema bilaterally, mild JVD. Abdomen: Soft, nontender with normal active bowel sounds Skin: warm, intact Musculoskeletal: Normal Range of Motion (ROM) Psych: Oriented to time, person, and place No results found for: CHOL, LDLCALC, LDLDIRECT, TRIG, HDL Serum creatinine: 2.05 mg/dL (H) 03/14/22 0111 Estimated creatinine clearance: 25.9 mL/min (A) Associated attestation - Ifeanyi Kemp DO - 03/14/2022 11:20 AM EDT I have personally performed an independent face to face history and physical examination. I have reviewed the documented history, physical examination findings, and the assessment and plans as outlined by the nurse practitioner. The diagnostic testing results were reviewed and I independently reviewed the ECG tracings. My evaluation comprised more than half of the total time spent on the E/M visit. Impressions: 1. Acute on chronic heart failure with reduced ejection fraction 2. Ischemic cardiomyopathy with last assessment of his ejection fraction at 30% 3. Permanent atrial fibrillation with attempt at cardioversion earlier this year 4. Mild increase in troponin levels likely due to #1 5. History of multivessel PCI in 2018 6. History of TRAFFIC PERSONNEL SUPERVISOR-D Recommendations: Patient with increasing shortness of breath over the last several months. He has been having increasing lower extremity edema. They have been in touch with his primary electromechanical technician office for diuretic adjustment over the past weekend but were not able to increase his afternoon Lasix due to a rash. He typically takes 80 mg in the morning and 40 mg in the afternoon. They have been eating out at [facility] more so than usual recently which may account for his propensity for volume overload. I have asked him to decrease meals outside the home due to the increased sodium load. He can go back to his previous home diuretic dosing after discharge. He does have a follow-up scheduled with his primary electromechanical technician on March 20. Patient appears improved on IV diuretic therapy currently. No plans for any further testing at this point in time. Okay for discharge from my standpoint. Gideon Kemp DO [facility] Rounding nurse cell: [phone] Personal cell: [phone] documented in this encounter [facility] 03-14-2022 Consult note Associated Order (s): IP CONSULT TO CARDIAC ELECTROPHYSIOLOGY Please refer to Dr Viveros note 9.14.22 3:55. [facility] 03-14-2022 Note Formatting of this n ote might be different from the original. Asked to review device interrogation. DEVICE: [employer] biventricular ICD. The patient underwent upgrade from a single to a biventricular ICD system in 2019 at the [facility]. The patient was noted to have an elevated RV capture threshold at the time. The patient's device is followed by a electromechanical technician in [facility]. The patient's interrogation demonstrated noncapture of his right ventricular pacing lead at its current settings. The device was reprogrammed with an output of 5 V at 1 ms but capture threshold was at 5.5 V at 1 ms. Device was reprogrammed to an output of 6.5 at 1 ms. LV threshold was stable. The patient otherwise has been in a chronic atrial fibrillation for at least a year. The patient has a 98% pacing burden and is pacing dependent. I reviewed the results of the interrogation with the patient's . The patient has an appointment with her device electromechanical technician in the next week. She wrote down the details and will communicate these findings with him. Please call if additional questions or concerns. [employer] Work Phone: 03-14-2022 Consult note Formatting of th is note is different from the original. Occupational Therapy OCCUPATIONAL THERAPY EVALUATION AND TREATMENT NOTE OCCUPATIONAL THERAPY EVALUATION Skilled Therapy Needs After Discharge Anticipate Resolution of Current Assessment Limitations Including: Mechanical Barriers, Social Support Are Skilled Therapy Services Needed After Discharge: Yes Intensity of Skilled Therapy: 2-3 days per week Anticipated Duration of Skilled Therapy: Duration 10 - 30 days DME Recommendation: Tub seat DME Rationale: Unreasonable time frame to complete ADL without recommended equipment, Patient's condition creates an increased risk of safety hazard without recommended equipment Rehab Potential: Good Outcomes Measures Prior Function Daily Activity Raw Score: 23 Prior Function Daily Activity % Impaired: 15.86% AM-PAC Daily Activity Raw Score: 18 AM-PAC Daily Activity % Impaired: 46.65% Occupational Therapy Assessment The patient's current functional participation deficits are UE dressing, grooming, LE dressing, bathing, toileting, home management, meal preparation, hobbies, functional mobility. This reduced independence will limit their life roles of premorbid level individual, spouse. The patient's co morbidities do significantly affect patient performance in the above activities and roles. The performance deficits are a result of musculoskeletal, cardiopulmonary, neurological impairment(s) in generalized debility, trunk, bilateral, lower extremity including strength, balance, acitvity tolerance, respiratory capacity, safety, and knowledge deficit. The patient's home setup is a barrier (3 ALEX home, 7 steps down to family room/recliner) for return to prior level of function. The patient's compliance is a quality control specialist to return to prior level of function. During the assessment, minimal to moderate modification of task was required and several treatment options were identified in the plan of care. This consultation required expanded review of the medical and therapy history. Activity Tolerance Therapy Precautions Orthotic Devices: No General Rehab Precautions: Fall risk Cognition Overall Cognitive Status: Within Functional Limits Arousal/Alertness: Appropriate responses to stimuli Orientation Level: Oriented X4 Safety Judgment: Decreased awareness of need for safety Problem Solving: Assistance required to implement solutions Attention: Attends to quiet environment Hearing Status: Hard of hearing, Hearing aide (not present) Social Interaction: Cooperative, Appropriate ADL Lower Body Dressing: Maximal assist (demos functional reach, min impairments Left hip) Toileting: Minimal assist IADL Bed Mobility Supine to Sit: Minimal assist, Head of bed flat Sit to Supine: Moderate assist Functional Transfers Sit to Stand: Minimal assist Bed to Chair Transfers: Contact guard assist Process Safety Management Engineer: wheeled walker Additional Functional Transfer Trial 2: Yes Sit to Stand Trial 2: Minimal assist Process Safety Management Engineer Trial 2: wheeled walker Additional Functional Transfer Trial 3: Yes Sit to Stand Trial 3: Minimal assist Bed to Chair Trial 3: Contact guard assist Process Safety Management Engineer Trial 3: wheeled walker Home Living Obtained Home Living and PLOF info from: Patient Lives With: Spouse Type of Home: House Home Layout: Multi-level, Stairs between floors (has been staying on bottom floor in recliner.) Steps to enter home: Yes Rails to enter home: 1 rail Number of stairs to enter home: 3 Bathroom Shower/Tub: Tub/shower unit, Second level, Walk-in shower, Basement Bathroom Equipment: Grab bars in shower Mobility Equipment: Cane, Wheeled walker Additional Objective Details - Home Living: pt reports a fall in the shower a few weeks ago, and fall while shoveling last winter Prior Level of Function Receives Help From: Family Level of [place] - Transfers/Ambulation/Mobility: Independent with functional transfers, Independent with household ambulation, Independent with community ambulation Level of [place] - ADLs: Independent Driving: Patient does not drive (license ) OCCUPATIONAL THERAPY TREATMENT NOTE Total Treatment Time (Total Session Time): 25 Minutes Cognitive Skills Development Self-Care / ADL Home Management / IADL Therapeutic Activities Bed Mobility Skilled Intervention Provided: verbal cues, tactile cues, demonstration, environmental setup/modification For: LE positioning, UE positioning, compensatory strategies, logroll technique, proper body mechanics, safe use of bedrails and/or equipment, safety during functional task(s) Resulting In: improved functional independence Functional Transfers Skilled Intervention Provided: verbal cues, environmental setup/modification, facilitation For: LE positioning, UE positioning, controlled descent, compensatory strategies, fall prevention, increased participation in mobility task, postural alignment, safety during functional task(s) Resulting In: improved balance Therapeutic Exercise Neuromuscular Reeducation Additional Treatment Details simulated home set up and engaged patient in in room and brief hallway mobility. wh. walker required this date for balance, typically uses a cane. cues required for safe descent and set up of transfers. consistent assistance for bed mobility this date (Has been sleeping in a recliner recently) Past Medical History: Diagnosis Date CHF (congestive heart failure) (HCC) Coronary artery disease Diabetes mellitus (HCC) Hyperlipidemia Myocardial infarction (HCC) Renal disorder Past Surgical History: Procedure Laterality Date CARDIAC CATHETERIZATION CARDIAC PACEMAKER PLACEMENT JOINT REPLACEMENT ORTHOPEDIC SURGERY For complete objective data, detailed plan of care and patient education refer to: OT Evaluation flowsheet, OT Evaluation and Treatment flowsheet, OT Treatment flowsheet, patient Plan of Care, Plan of Care progress note, and Patient Education. This note stands as the current Discharge Summary upon patient discharge from the hospital or completion of Occupational Therapy Plan of Care. [facility] 03-14-2022 Consult note Associated Order (s): IP CONSULT TO CARDIOLOGY General Cardiology Inpatient Consult Heart & Vascular 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 SUPERVISOR-D -Presents with worsening dyspnea on exertion over the last 2 weeks and bilateral lower extremity pitting edema -reports compliance with low sodium diet per -does not check blood pressures at home -home regimen lasix 80 mg in AM and 40 mg about 5 hours later -NT proBNP 3K -Chest x-ray no acute findings, CT chest no significant findings -s/p IV lasix x 2 and reports BLE significantly improved, did have pitting edema prior to admit; still with pedal edema -currently feels improved on exam Elevated troponin -troponin T 73, 64 (12%), 65 (10%) -EKG paced -hx of CKD with creatinine of unknown baseline, currently at 2 -denies chest discomfort Coronary artery disease -s/p multi-vessel PCI to LAD, OM and RCA in 2018 -no recent ischemic evaluation Atrial fibrillation -per history s/p cardioversion earlier this year per -has TRAFFIC PERSONNEL SUPERVISOR-D in place and device interrogation this admit shows persistent afib for the past year, no ventricular high rates -tele with paced rhythm and appears to be in afib -CHADS2-VASc score: 5 (CHF, HTN, advanced age, and vascular) -chronically on reduced dose Eliquis at 2.5 mg BID Hypertension -does not check BP at home, reading here 142/89 PLAN: -continue IV diuresis and transition to PO dosing in AM. Could consider changing home lasix to PO torsemide for better response. -continue current cardiac medications including Entresto, Toprol XL, Imdur, asa, statin and Eliquis -no current indication for ischemic evaluation at this time. Dr. Kemp to see and final recommendations to follow Subjective Reason for Consultation: Acute on chronic heart failure History of Present Illness: Marcos Garcia is a 86 y.o. male with past medical history of coronary artery disease s/p PCIs, HFrEF ICM s/p TRAFFIC PERSONNEL SUPERVISOR-D, atrial fibrillation, CKD who presented to [facility] on 03/13/22 with worsening dyspnea on exertion and found to be in acute heart failure exacerbation. Patient states that for the past 2 weeks he has had progressive dyspnea on exertion, BLE edema with pitting edema, orthopnea. He believes he has only put on about 2 pounds of weight. He does not check his blood pressures at home. Denies chest pain, lh/dz or palpitations. He was instructed to increase as outpatient and did this for one dose but developed a rash so went back to chronic lasix dosing. Imaging: I independently reviewed the EKG and agree with the interpretation(s) with the following comments. EKG 12-lead Final Result by Interface, Lab Results In [place] [facility] (03/13/2022 1537) Review of Systems: The following system(s) were reviewed and negative. Pertinent positive and negative findings are noted in the HPI. [x] Const [x] Eyes [x] ENT [x] Resp [] CV [x] GI [x] [x] Neuro [x] Musc [x] Skin [x] Psych [x] Endo [x] Allergy [x] Heme/Lymph Past Medical History: Diagnosis Date CHF (congestive heart failure) (HCC) Coronary artery disease Diabetes mellitus (HCC) Hyperlipidemia Myocardial infarction (HCC) Renal disorder Past Surgical History: Procedure Laterality Date CARDIAC CATHETERIZATION CARDIAC PACEMAKER PLACEMENT JOINT REPLACEMENT ORTHOPEDIC SURGERY Family History Problem Relation Age of Onset Heart disease Father Social History Tobacco Use Smoking Status Former Types: Cigarettes Quit date: 1987 Years since quittin.7 Smokeless Tobacco Never Additional History Comments: None Allergies: Patient has no known allergies. Current Facility-Administered Medications Medication Dose Route Frequency Provider Last Rate Last Admin acetaminophen (TYLENOL) tablet 650 mg 650 mg Oral Q4H PRN Kristen Chau MD apixaban (ELIQUIS) tablet 2.5 mg 2.5 mg Oral BID Kristen Chau MD 2.5 mg at 03/14/22 09 aspirin EC tablet 81 mg 81 mg Oral Daily with lunch Kristen Chau MD folic acid (FOLVITE) tablet 1,000 mcg 1,000 mcg Oral QA Kristen Chau MD 1,000 mcg at 03/14/22941 gabapentin (NEURONTIN) capsule 100 mg 100 mg Oral at bedtime Kristen Chau MD 100 mg at 03/13/22 232 isosorbide mononitrate (IMDUR) 24 hr tablet 60 mg 60 mg Oral ADELITA Chau MD 60 mg at 03/14/22941 melatonin tablet 3 mg 3 mg Oral Nightly PRN Kristen Chau MD 3 mg at 03/13/22 232 metoprolol succinate (TOPROL-XL) 24 hr tablet 25 mg 25 mg Oral ADELITA Chau MD 25 mg at 03/14/22941 ondansetron (ZOFRAN-ODT) disintegrating tablet 4 mg 4 mg Oral Q6H PRN Kristen Chau MD Or ondansetron (ZOFRAN) injection 4 mg 4 mg Intravenous Q6H PRN Kristen Chau MD rosuvastatin (CRESTOR) tablet 10 mg 10 mg Oral Daily Kristen Chau MD 10 mg at 03/13/22 232 sacubitriL-valsartan (ENTRESTO) 24-26 mg per tablet 1 tablet 1 tablet Oral BID Kristen Chau MD 1 tablet at 03/13/22 232 sertraline (ZOLOFT) tablet 50 mg 50 mg Oral ABHAY Kristen Chau MD 50 mg at 03/14/22 0942 sodium chloride (PF) (NS) flush 5 mL 5 mL Intravenous PRN Azeb [place], PA-C And sodium chloride 0.9% (NS) 0-150 mL/hr Intravenous PRN Azeb Dashawn [place], PA-C sodium chloride (PF) (NS) flush 5 mL 5 mL Intravenous PRN Kristen Chau MD And sodium chloride (PF) (NS) flush 5 mL 5 mL Intravenous Q8H LALI Kristen Chau MD And sodium chloride 0.9% (NS) 0-150 mL/hr Intravenous PRN Kristen Chau MD Objective: Physical Examination: BP (!) 142/89 (BP Location: Left arm, Patient Position: Lying) Pulse 70 Temp 97.9 F (36.6 C) Resp 18 Ht 5' 9 Wt 89.3 kg (196 lb 13.9 oz) SpO2 96% BMI 29.07 kg/m Constitutional: Alert, well appearing, not in distress.? Eyes: Conjunctivae/corneas clear. Lungs: Clear to auscultation, no wheezes, rales or rhonchi. Cardiovascular: Normal rate and regular rhythm, S1 and S2 normal, no murmurs noted, no carotid bruit, (+) pedal edema bilaterally, mild JVD. Abdomen: Soft, nontender with normal active bowel sounds Skin: warm, intact Musculoskeletal: Normal Range of Motion (ROM) Psych: Oriented to time, person, and place No results found for: CHOL, LDLCALC, LDLDIRECT, TRIG, HDL Serum creatinine: 2.05 mg/dL (H) 03/14/22 0111 Estimated creatinine clearance: 25.9 mL/min (A) Associated attestation - Ifeanyi Kemp DO - 03/14/2022 11:20 AM EDT I have personally performed an independent face to face history and physical examination. I have reviewed the documented history, physical examination findings, and the assessment and plans as outlined by the nurse practitioner. The diagnostic testing results were reviewed and I independently reviewed the ECG tracings. My evaluation comprised more than half of the total time spent on the E/M visit. Impressions: 1. Acute on chronic heart failure with reduced ejection fraction 2. Ischemic cardiomyopathy with last assessment of his ejection fraction at 30% 3. Permanent atrial fibrillation with attempt at cardioversion earlier this year 4. Mild increase in troponin levels likely due to #1 5. History of multivessel PCI in 2018 6. History of TRAFFIC PERSONNEL SUPERVISOR-D Recommendations: Patient with increasing shortness of breath over the last several months. He has been having increasing lower extremity edema. They have been in touch with his primary electromechanical technician office for diuretic adjustment over the past weekend but were not able to increase his afternoon Lasix due to a rash. He typically takes 80 mg in the morning and 40 mg in the afternoon. They have been eating out at [facility] more so than usual recently which may account for his propensity for volume overload. I have asked him to decrease meals outside the home due to the increased sodium load. He can go back to his previous home diuretic dosing after discharge. He does have a follow-up scheduled with his primary electromechanical technician on March 20. Patient appears improved on IV diuretic therapy currently. No plans for any further testing at this point in time. Okay for discharge from my standpoint. Gideon Kemp [facility] Rounding nurse cell: [phone] Personal cell: [phone] [facility] Work Phone: 03-13-2022 [facility] 03/13/22 Marcos Garcia 1935 [id number] Assessment/Plan: Marcos Garcia is a 86 y.o. male with a history of CAD s/p TN, CHF s/p pacemaker and defibrillator, Afib, and CKD who presented to [facility] 03/13/2022 with 2-3 months of worsened dyspnea on exertion. On admit, Cr 2.11, troponin 73, BNP 3228. EKG paced. CXR, CT C/A/P and CT T/L spine nonacute. Dyspnea on Exertion: worsened in past few months, unable to walk more than 10 steps without feeling like he will pass out due to dyspnea. TSH, LFTs normal on admit. CT C/A/P and CT T/L on admit nonacute. Cardiac workup as below. PTOT. Acute on Chronic HFrEF: history of CHF, EF 35% per family. S/p pacemaker and defibrillator ~2015 per family. Follows with Cardiology in [place]. BNP 3228 on admit with LE edema. Check LEVD, interrogate device. Continue IV lasix. Check TTE. Cardiology consulted. Elevated Troponin: initial troponin 73, EKG showed paced rhythm. In setting of ELENI. Cycle troponins, check TTE. Cardiology consulted as above. CAD: history of TN in the past and thinks he had stents placed. Cardiac arrest while hospitalized in ~2015 per family. Intolerant to most statins; tolerates crestor. Home ASA, crestor, BB and nitrate continued. Atrial Fibrillation: by history, s/p DCCV in early 2021 per family. BB and eliquis continued. ELENI on CKD: history of stage 3 CKD; unknown baseline Cr. Cr 2.11 on admit. Does not follow with a electroencephalographic technician. Renal US pending. Monitor while diuresing. Nephrology consulted. Code status: full code confirmed on admit with patient and family. DVT Prophylaxis: systemic anticoagulation with eliquis The following Vizient risk variables were noted and present on admission: Cardiac Arrhythmia, Chronic Kidney Disease, and Fluid Overload Please see assessment and plan for further details. Current living situation: home with . and son updated 03/13/22. Was going to outpatient PT. Expected Disposition: home likely. PTOT pending. Estimated discharge date: TBD Chief Complaint: Dyspnea on exertion History of Present Illness: Marcos Garcia is a 86 y.o. male with a history of CAD s/p TN, CHF s/p pacemaker and defibrillator, Afib, and CKD who presented to [facility] 03/13/2022 with 2-3 months of worsened dyspnea on exertion. On admit, Cr 2.11, troponin 73, BNP 3228. EKG paced. CXR, CT C/A/P and CT T/L spine nonacute. Pt hard of hearing. Discussed with ER doc. Pt's son and at bedside were able to provide details of his history as well. Increased dyspnea on exertion, most noticeably in past few months but ongoing for about 3 years which has limited bu ability to ambulate at home and play golf. He says he tried to golf last week but after walking just 10 steps he couldn't catch his breath and felt as though he was going to pass out. Increased edema in legs as well. Denies any chest pain. No dyspnea at rest. No dizziness. Follows with PCP and cardio in [place]. No recent med changes. No dietary changes. No weight loss or gain. Good appetite. No cough, fever, chills. ROS: 10 systems were reviewed and negative, except as noted above. Past Medical, Surgical, Social, Family History: Past Medical History: Diagnosis Date CHF (congestive heart failure) (HCC) Coronary artery disease Diabetes mellitus (HCC) Hyperlipidemia Myocardial infarction (HCC) Renal disorder Past Surgical History: Procedure Laterality Date CARDIAC CATHETERIZATION CARDIAC PACEMAKER PLACEMENT JOINT REPLACEMENT ORTHOPEDIC SURGERY Social History Socioeconomic History Marital status: Tobacco Use Smoking status: Former Types: Cigarettes Quit date: 1987 Years since quittin.7 Smokeless tobacco: Never Vaping Use Vaping Use: Never used Substance and Sexual Activity Alcohol use: Yes Comment: rarely Drug use: Not Currently Family History Problem Relation Age of Onset Heart disease Father Home Medications: Outpatient Medications as of 03/13/2022 Medication Sig cholecalciferol, vitamin D3, 125 mcg (5,000 unit) capsule Take 1 (one) capsule (5,000 Units total) by mouth every morning . Eliquis 2.5 mg Tab Take 1 (one) tablet (2.5 mg total) by mouth 2 (two) times a day . Entresto 24-26 mg per tablet Take 1 (one) tablet by mouth 2 (two) times a day . folic acid (FOLVITE) 1 MG tablet Take 1 (one) tablet (1,000 mcg total) by mouth every morning . furosemide (LASIX) 40 MG tablet Take 2 (two) tablets (80 mg total) by mouth every morning . gabapentin (NEURONTIN) 100 MG capsule Take 1 (one) capsule (100 mg total) by mouth at bedtime . isosorbide mononitrate (IMDUR) 60 MG 24 hr tablet Take 1 (one) tablet (60 mg total) by mouth every morning . metoprolol succinate (TOPROL-XL) 25 MG 24 hr tablet Take 1 (one) tablet (25 mg total) by mouth every morning . rosuvastatin (CRESTOR) 10 MG tablet Take 1 (one) tablet (10 mg total) by mouth daily in the afternoon . sertraline (ZOLOFT) 50 MG tablet Take 1 (one) tablet (50 mg total) by mouth every morning . Physical Exam: BP (!) 126/93 (BP Location: Right arm, Patient Position: Lying) Pulse 70 Temp 97.6 F (36.4 C) (Oral) Resp (!) 22 Ht 5' 9 Wt 88.9 kg (196 lb) SpO2 95% BMI 28.94 kg/m General: NAD Eyes: EOMI ENT: neck supple Cardiovascular: Regular rate. Respiratory: bibasilar crackles Gastrointestinal: Soft, non tender Genitourinary: no suprapubic tenderness Musculoskeletal: 1+ LE edema Skin: warm, dry Neuro: Alert. Oriented x3, hard of hearing, hearing aids in place. RIVAS x4 equally Psych: Mood appropriate. Labs, Imaging, and Studies reviewed: Results from last 7 days Lab Units 03/13/22 1347 WBC K/mcL 4.81 HGB g/dL 13.5 HCT % 43.1 PLT K/mcL 172 Results from last 7 days Lab Units 03/13/22 1347 SODIUM mmol/L 143 POTASSIUM mmol/L 3.9 CHLORIDE mmol/L 104 BICARB mmol/L 27 BUN mg/dL 28* CREATININE mg/dL 2.11* EGFR mL/min/1.73 m2 30* GLUCOSE mg/dL 166* CALCIUM mg/dL 9.6 Results from last 7 days Lab Units 03/13/22 1347 ALT U/L 13 AST U/L 16 ALK PHOS U/L 81 BILIRUBIN TOTAL mg/dL 0.[address] [facility] 03-13-2022 [facility] 03/13/22 Marcos Garcia 1935 [id number] Assessment/Plan: Marcos Garcia is a 86 y.o. male with a history of CAD s/p TN, CHF s/p pacemaker and defibrillator, Afib, and CKD who presented to [facility] 03/13/2022 with 2-3 months of worsened dyspnea on exertion. On admit, Cr 2.11, troponin 73, BNP 3228. EKG paced. CXR, CT C/A/P and CT T/L spine nonacute. Dyspnea on Exertion: worsened in past few months, unable to walk more than 10 steps without feeling like he will pass out due to dyspnea. TSH, LFTs normal on admit. CT C/A/P and CT T/L on admit nonacute. Cardiac workup as below. PTOT. Acute on Chronic HFrEF: history of CHF, EF 35% per family. S/p pacemaker and defibrillator ~2015 per family. Follows with Cardiology in [place]. BNP 3228 on admit with LE edema. Check LEVD, interrogate device. Continue IV lasix. Check TTE. Cardiology consulted. Elevated Troponin: initial troponin 73, EKG showed paced rhythm. In setting of ELENI. Cycle troponins, check TTE. Cardiology consulted as above. CAD: history of TN in the past and thinks he had stents placed. Cardiac arrest while hospitalized in ~2015 per family. Intolerant to most statins; tolerates crestor. Home ASA, crestor, BB and nitrate continued. Atrial Fibrillation: by history, s/p DCCV in early 2021 per family. BB and eliquis continued. ELENI on CKD: history of stage 3 CKD; unknown baseline Cr. Cr 2.11 on admit. Does not follow with a electroencephalographic technician. Renal US pending. Monitor while diuresing. Nephrology consulted. Code status: full code confirmed on admit with patient and family. DVT Prophylaxis: systemic anticoagulation with eliquis The following Vizient risk variables were noted and present on admission: Cardiac Arrhythmia, Chronic Kidney Disease, and Fluid Overload Please see assessment and plan for further details. Current living situation: home with . and son updated 03/13/22. Was going to outpatient PT. Expected Disposition: home likely. PTOT pending. Estimated discharge date: TBD Chief Complaint: Dyspnea on exertion History of Present Illness: Marcos Garcia is a 86 y.o. male with a history of CAD s/p TN, CHF s/p pacemaker and defibrillator, Afib, and CKD who presented to [facility] 03/13/2022 with 2-3 months of worsened dyspnea on exertion. On admit, Cr 2.11, troponin 73, BNP 3228. EKG paced. CXR, CT C/A/P and CT T/L spine nonacute. Pt hard of hearing. Discussed with ER doc. Pt's son and at bedside were able to provide details of his history as well. Increased dyspnea on exertion, most noticeably in past few months but ongoing for about 3 years which has limited bu ability to ambulate at home and play golf. He says he tried to golf last week but after walking just 10 steps he couldn't catch his breath and felt as though he was going to pass out. Increased edema in legs as well. Denies any chest pain. No dyspnea at rest. No dizziness. Follows with PCP and cardio in [place]. No recent med changes. No dietary changes. No weight loss or gain. Good appetite. No cough, fever, chills. ROS: 10 systems were reviewed and negative, except as noted above. Past Medical, Surgical, Social, Family History: Past Medical History: Diagnosis Date CHF (congestive heart failure) (HCC) Coronary artery disease Diabetes mellitus (HCC) Hyperlipidemia Myocardial infarction (HCC) Renal disorder Past Surgical History: Procedure Laterality Date CARDIAC CATHETERIZATION CARDIAC PACEMAKER PLACEMENT JOINT REPLACEMENT ORTHOPEDIC SURGERY Social History Socioeconomic History Marital status: Tobacco Use Smoking status: Former Types: Cigarettes Quit date: 1987 Years since quittin.7 Smokeless tobacco: Never Vaping Use Vaping Use: Never used Substance and Sexual Activity Alcohol use: Yes Comment: rarely Drug use: Not Currently Family History Problem Relation Age of Onset Heart disease Father Home Medications: Outpatient Medications as of 03/13/2022 Medication Sig cholecalciferol, vitamin D3, 125 mcg (5,000 unit) capsule Take 1 (one) capsule (5,000 Units total) by mouth every morning . Eliquis 2.5 mg Tab Take 1 (one) tablet (2.5 mg total) by mouth 2 (two) times a day . Entresto 24-26 mg per tablet Take 1 (one) tablet by mouth 2 (two) times a day . folic acid (FOLVITE) 1 MG tablet Take 1 (one) tablet (1,000 mcg total) by mouth every morning . furosemide (LASIX) 40 MG tablet Take 2 (two) tablets (80 mg total) by mouth every morning . gabapentin (NEURONTIN) 100 MG capsule Take 1 (one) capsule (100 mg total) by mouth at bedtime . isosorbide mononitrate (IMDUR) 60 MG 24 hr tablet Take 1 (one) tablet (60 mg total) by mouth every morning . metoprolol succinate (TOPROL-XL) 25 MG 24 hr tablet Take 1 (one) tablet (25 mg total) by mouth every morning . rosuvastatin (CRESTOR) 10 MG tablet Take 1 (one) tablet (10 mg total) by mouth daily in the afternoon . sertraline (ZOLOFT) 50 MG tablet Take 1 (one) tablet (50 mg total) by mouth every morning . Physical Exam: BP (!) 126/93 (BP Location: Right arm, Patient Position: Lying) Pulse 70 Temp 97.6 F (36.4 C) (Oral) Resp (!) 22 Ht 5' 9 Wt 88.9 kg (196 lb) SpO2 95% BMI 28.94 kg/m General: NAD Eyes: EOMI ENT: neck supple Cardiovascular: Regular rate. Respiratory: bibasilar crackles Gastrointestinal: Soft, non tender Genitourinary: no suprapubic tenderness Musculoskeletal: 1+ LE edema Skin: warm, dry Neuro: Alert. Oriented x3, hard of hearing, hearing aids in place. RIVAS x4 equally Psych: Mood appropriate. Labs, Imaging, and Studies reviewed: Results from last 7 days Lab Units 03/13/22 1347 WBC K/mcL 4.81 HGB g/dL 13.5 HCT % 43.1 PLT K/mcL 172 Results from last 7 days Lab Units 03/13/22 1347 SODIUM mmol/L 143 POTASSIUM mmol/L 3.9 CHLORIDE mmol/L 104 BICARB mmol/L 27 BUN mg/dL 28* CREATININE mg/dL 2.11* EGFR mL/min/1.73 m2 30* GLUCOSE mg/dL 166* CALCIUM mg/dL 9.6 Results from last 7 days Lab Units 03/13/22 1347 ALT U/L 13 AST U/L 16 ALK PHOS U/L 81 BILIRUBIN TOTAL mg/dL 0.4 documented in this encounter [facility] 03-13-2022 Physician Emergency department Note [facility] PCP - Perry Olivas MD Chief Complaint Patient presents with Chest Pain HPI This very pleasant 86-year-old gentleman has a past medical history of myocardial infarction, hyperlipidemia, diabetes, CHF, chronic kidney disease, pacer/defibrillator. He comes from [place], [place], where he resides. He had had pacer defibrillator placed at [facility] and follows with a local doctor in [place]. Patient's son and report that over the last few months he has been having progressively worsening lower extremity edema. Son took him golfing a week or so ago, and he walked approximately 10 steps, got severely lightheaded/dizzy, pale, clammy, and nearly passed out. Family reports, and patient admits, that he has become increasingly weak with any exertion recently. He does have some neck discomfort from time to time, but denies any other classic angina symptoms beyond shortness of breath, such as chest pain, jaw pain, arm pain, upper back pain. Denies focal neurologic symptoms. He is very compliant with medications and is on Lasix. At 1 point not too long ago, there was a plan to increase his Lasix by 40 mg, but after doing this 1 time, he developed a significant pruritic rash, so they were deterred from doing this in the future. He is compliant with all medications, no other recent changes. He is on daily Eliquis. Patient has had back pain off and on, particularly the lumbar/flank areas. No radicular symptoms into the legs. His defibrillator has not fired. Denies any recent cold or flulike illnesses. No fever. No cough. Occasional loose stools. Family very concerned about his progressive worsening, and presents here, hoping that patient may benefit from a second opinion regarding his cardiac status, possible consultation by cardiology, nephrology, electrophysiology. They were reluctant to go to [facility] for this. Review of Systems Constitutional: No recent unexplained weight loss Skin: No rash Eyes: No scleral icterus ENMT: No voice changes Genitourinary: no obstructive symptoms Endocrine: no polyuria Neurologic: no speech difficulties Psychiatric: No Behavior Problems Hematologic/Lymphatic: No abnormal bruising Allergic/Immunologic: no urticaria All systems reviewed negative except as mentioned above. Physical Exam Vital Signs During ED Visit (as charted by nursing) Patient Vitals for the past 24 hrs: BP Temp Temp src Pulse Resp SpO2 Height Weight 03/13/22 1500 128/84 -- -- 70 (!) 22 97 % -- -- 03/13/22 1415 136/87 -- -- -- -- 96 % -- -- 03/13/22 1306 122/75 97.6 F (36.4 C) Oral 71 18 96 % 5' 9 88.9 kg (196 lb) Physical Exam Vitals and nursing note reviewed. Constitutional: General: He is not in acute distress. Appearance: He is well-developed. HENT: Head: Normocephalic. Eyes: Pupils: Pupils are equal, round, and reactive to light. Neck: Vascular: JVD present. Cardiovascular: Rate and Rhythm: Normal rate and regular rhythm. Heart sounds: Normal heart sounds. No murmur heard. Pulmonary: Effort: Pulmonary effort is normal. No respiratory distress. Breath sounds: Rales (Scant rales in bases bilaterally) present. Abdominal: General: Bowel sounds are normal. There is no distension. Palpations: Abdomen is soft. Tenderness: There is no abdominal tenderness. Musculoskeletal: General: No tenderness or deformity. Normal range of motion. Cervical back: Normal range of motion and neck supple. Right lower leg: Edema (Approximately 2+ edema.) present. Left lower leg: Edema present. Skin: General: Skin is warm and dry. Findings: No rash. Neurological: Mental Status: He is alert and oriented to person, place, and time. Cranial Nerves: No cranial nerve deficit. Sensory: No sensory deficit. Psychiatric: Behavior: Behavior normal. Thought Content: Thought content normal. Judgment: Judgment normal. Past Medical History Past Medical History: Diagnosis Date CHF (congestive heart failure) (HCC) Coronary artery disease Diabetes mellitus (HCC) Hyperlipidemia Myocardial infarction (HCC) Renal disorder Past Surgical History Past Surgical History: Procedure Laterality Date CARDIAC CATHETERIZATION CARDIAC PACEMAKER PLACEMENT JOINT REPLACEMENT ORTHOPEDIC SURGERY Family History History reviewed. No pertinent family history. Social History Social History Socioeconomic History Marital status: Tobacco Use Smoking status: Former Types: Cigarettes Quit date: 1987 Years since quittin.7 Smokeless tobacco: Never Vaping Use Vaping Use: Never used Substance and Sexual Activity Alcohol use: Yes Comment: rarely Drug use: Not Currently Allergies No Known Allergies Medications Patient's Medications No medications on file MEDICAL DECISION MAKING Labs Reviewed BASIC METABOLIC PANEL - Abnormal; Notable for the following components: Result Value Glucose 166 (*) BUN 28 (*) Creatinine 2.11 (*) eGFR 30 (*) All other components within normal limits Narrative: [facility] has implemented the eGFR calculation approach that does not have a coefficient for race that conforms to the NKF-ASN Task Force Recommendations. TROPONIN - Abnormal; Notable for the following components: Troponin T 73 (*) All other components within normal limits NT PRO BNP - Abnormal; Notable for the following components: NT-Pro BNP 3,228 (*) All other components within normal limits Narrative: Pride Study Cut-offs Rule In: < /= 50 Years >450 pg/mL 51 Years - 75 Years >900 pg/mL 76 Years - 99 Years >1800 pg/mL Rule Out: All patients <300 pg/mL CBC WITH AUTO DIFFERENTIAL - Abnormal; Notable for the following components: RBC 4.30 (*) MCV 100.2 (*) Lymphocytes Abs 0.74 (*) All other components within normal limits HEPATIC FUNCTION PANEL - Normal LIPASE - Normal TSH WITH REFLEX FREE T4 - Normal CBC AND DIFFERENTIAL Narrative: The following orders were created for panel order CBC w/ Diff. Procedure Abnormality Status --------- ------ CBC Auto Differential[[id number]] Abnormal Final result Please view results for these tests on the individual orders. URINALYSIS Results for orders placed or performed during the hospital encounter of 03/13/22 BMP Result Value Ref Range Sodium 143 135 - 145 mmol/L Potassium 3.9 3.5 - 5.1 mmol/L Chloride 104 98 - 108 mmol/L Bicarbonate 27 21 - 32 mmol/L Anion Gap 16 10 - 20 mmol/L Glucose 166 (H) 65 - 99 mg/dL BUN 28 (H) 8 - 25 mg/dL Creatinine 2.11 (H) 0.80 - 1.30 mg/dL eGFR 30 (L) >=60 mL/min/1.73 m2 BUN/Creatinine Ratio 13.3 10.0 - 20.0 Calcium 9.6 8.4 - 10.2 mg/dL Troponin Result Value Ref Range Troponin T 73 (CH) <=22 ng/L Troponin T Interpretation Possible acute cardiac injury. NT Pro BNP Result Value Ref Range NT-Pro BNP 3,228 (H) 0 - 300 pg/mL Lavender Top Result Value Ref Range Extra Tube Hold for add-ons. Mint Green Top Result Value Ref Range Extra Tube Hold for add-ons. Gold Top Result Value Ref Range Extra Tube Hold for add-ons. Light Blue Top Result Value Ref Range Extra Tube Hold for add-ons. Reza Top Result Value Ref Range Extra Tube Hold for add-ons. Hepatic Function Panel (LFT) Result Value Ref Range Total Protein 6.9 6.0 - 8.0 g/dL Albumin 4.1 3.2 - 5.2 g/dL Total Bilirubin 0.4 0.0 - 1.3 mg/dL Bilirubin, Direct 0.2 0.0 - 0.4 mg/dL Alkaline Phosphatase 81 40 - 150 U/L AST 16 0 - 45 U/L ALT 13 0 - 40 U/L Lipase Result Value Ref Range Lipase 31 15 - 65 U/L TSH with Reflex Free T4 Result Value Ref Range TSH 2.75 0.27 - 4.20 mcIU/mL EKG 12-lead Result Value Ref Range Ventricular Rate 82 BPM Atrial Rate 64 BPM QRS Duration 234 ms Q-T Interval 560 ms QTC Calculation (Bezet) 654 ms R Bertrand 174 degrees T Bertrand -18 degrees CBC Auto Differential Result Value Ref Range WBC 4.81 4.50 - 11.00 K/mcL RBC 4.30 (L) 4.50 - 5.90 M/mcL Hemoglobin 13.5 13.5 - 17.5 g/dL Hematocrit 43.1 41.0 - 53.0 % MCV 100.2 (H) 80.0 - 100.0 fL MCH 31.4 26.0 - 34.0 pg MCHC 31.3 31.0 - 37.0 g/dL Platelets 172 150 - 400 K/mcL RDW - CV 13.0 11.6 - 14.8 % MPV 10.8 9.4 - 12.4 fL Neutrophils 72.6 % Lymphocytes 15.4 % Monocytes 8.1 % Eosinophils 2.7 % Basophils 0.6 % IG Percent 0.60 % Neutrophils Abs 3.49 1.70 - 7.00 K/mcL Lymphocytes Abs 0.74 (L) 0.90 - 4.00 K/mcL Monocytes Abs 0.39 0.30 - 0.90 K/mcL Eosinophils Abs 0.13 0.00 - 0.50 K/mcL Basophils Abs 0.03 0.00 - 0.30 K/mcL IG Absolute 0.03 0.00 - 0.30 K/mcL Nucleated RBC 0.0 % Nucleated RBC Abs 0.00 0.00 - 0.00 K/mcL Radiographic Imaging (if any) During ED Visit CT Chest Abdomen Pelvis Without Contrast Final Result 1. Mild cardiomegaly. Coronary artery atherosclerosis. There appears to be some calcification along the intraseptal portion of the left ventricle. This can be seen with prior infarct. 2. Gallstones. The gallbladder is otherwise normal. 3. Sigmoid diverticulosis. 4. Degenerative disc disease from L2-L4. Workstation ID: [id number] XR Chest 1 View Final Result 1. Discoid atelectasis or scarring at the left lung base, otherwise no acute cardiopulmonary disease. 2. Stable cardiomegaly. [employer] Workstation ID: [id number] CT Thoracic Spine Reconstructed (Results Pending) CT Lumbar Spine Reconstructed (Results Pending) CT Thoracic Spine Reconstructed Final Result 1. No acute fracture or traumatic malalignment. 2. Mild levoconvex curvature of the thoracic spine, with mild to moderate multilevel degenerative disc changes. 3. Atherosclerotic calcifications in the coronary arteries and aorta. Workstation ID: [id number] CT Chest Abdomen Pelvis Without Contrast Final Result 1. Mild cardiomegaly. Coronary artery atherosclerosis. There appears to be some calcification along the intraseptal portion of the left ventricle. This can be seen with prior infarct. 2. Gallstones. The gallbladder is otherwise normal. 3. Sigmoid diverticulosis. 4. Degenerative disc disease from L2-L4. Workstation ID: [id number] XR Chest 1 View Final Result 1. Discoid atelectasis or scarring at the left lung base, otherwise no acute cardiopulmonary disease. 2. Stable cardiomegaly. [employer] Workstation ID: [id number] CT Lumbar Spine Reconstructed (Results Pending) Medications Ordered/Given During ED Visit Medications sodium chloride (PF) (NS) flush 5 mL (has no administration in time range) And sodium chloride 0.9% (NS) (has no administration in time range) furosemide (LASIX) injection 40 mg (has no administration in time range) aspirin chewable tablet 81 mg (has no administration in time range) Procedures EKG reveals 100% paced rhythm, rate of 82. QRS interval prolonged at 234 ms. This is interpreted by ED physician. Due to patient having flank pain/back pain, obtain CT imaging of the chest/abdomen/pelvis and thoracic/lumbar spine. Fortunately, no acute abnormalities identified. Laboratory studies significant for BUN and creatinine at 28 and 2.11, which appears to be stable chronic kidney disease. Troponin elevated at 73, with possible contributions from both renal and cardiac. Will benefit from serial troponins. EKG uninterpretable, secondary to paced rhythm, so cannot rule out STEMI with 100% certainty. B nitric peptide elevated 3228. Again, patient family concerned about his progressively worsening symptoms, significant episode with just very limited exertion [place] the [place]. Hopefully, patient would benefit from an observation here at [facility] for consideration of echocardiogram imaging, possible cardiology consultation, possible nephrology consultation, possible electrophysiology consultation. Disposition hospitalization Diagnosis Exertional dyspnea Near syncope Chronic kidney disease Elevated troponin Norbert Carpio MD 03/13/22 1632 [employer] Work Phone: 03-13-2022 Emergency department Note [facility] PCP - Perry Olivas MD Chief Complaint Patient presents with Chest Pain HPI This very pleasant 86-year-old gentleman has a past medical history of myocardial infarction, hyperlipidemia, diabetes, CHF, chronic kidney disease, pacer/defibrillator. He comes from [place], [place], where he resides. He had had pacer defibrillator placed at [facility] and follows with a local doctor in [place]. Patient's son and report that over the last few months he has been having progressively worsening lower extremity edema. Son took him golfing a week or so ago, and he walked approximately 10 steps, got severely lightheaded/dizzy, pale, clammy, and nearly passed out. Family reports, and patient admits, that he has become increasingly weak with any exertion recently. He does have some neck discomfort from time to time, but denies any other classic angina symptoms beyond shortness of breath, such as chest pain, jaw pain, arm pain, upper back pain. Denies focal neurologic symptoms. He is very compliant with medications and is on Lasix. At 1 point not too long ago, there was a plan to increase his Lasix by 40 mg, but after doing this 1 time, he developed a significant pruritic rash, so they were deterred from doing this in the future. He is compliant with all medications, no other recent changes. He is on daily Eliquis. Patient has had back pain off and on, particularly the lumbar/flank areas. No radicular symptoms into the legs. His defibrillator has not fired. Denies any recent cold or flulike illnesses. No fever. No cough. Occasional loose stools. Family very concerned about his progressive worsening, and presents here, hoping that patient may benefit from a second opinion regarding his cardiac status, possible consultation by cardiology, nephrology, electrophysiology. They were reluctant to go to [facility] for this. Review of Systems Constitutional: No recent unexplained weight loss Skin: No rash Eyes: No scleral icterus ENMT: No voice changes Genitourinary: no obstructive symptoms Endocrine: no polyuria Neurologic: no speech difficulties Psychiatric: No Behavior Problems Hematologic/Lymphatic: No abnormal bruising Allergic/Immunologic: no urticaria All systems reviewed negative except as mentioned above. Physical Exam Vital Signs During ED Visit (as charted by nursing) Patient Vitals for the past 24 hrs: BP Temp Temp src Pulse Resp SpO2 Height Weight 03/13/22 1500 128/84 -- -- 70 (!) 22 97 % -- -- 03/13/22 1415 136/87 -- -- -- -- 96 % -- -- 03/13/22 1306 122/75 97.6 F (36.4 C) Oral 71 18 96 % 5' 9 88.9 kg (196 lb) Physical Exam Vitals and nursing note reviewed. Constitutional: General: He is not in acute distress. Appearance: He is well-developed. HENT: Head: Normocephalic. Eyes: Pupils: Pupils are equal, round, and reactive to light. Neck: Vascular: JVD present. Cardiovascular: Rate and Rhythm: Normal rate and regular rhythm. Heart sounds: Normal heart sounds. No murmur heard. Pulmonary: Effort: Pulmonary effort is normal. No respiratory distress. Breath sounds: Rales (Scant rales in bases bilaterally) present. Abdominal: General: Bowel sounds are normal. There is no distension. Palpations: Abdomen is soft. Tenderness: There is no abdominal tenderness. Musculoskeletal: General: No tenderness or deformity. Normal range of motion. Cervical back: Normal range of motion and neck supple. Right lower leg: Edema (Approximately 2+ edema.) present. Left lower leg: Edema present. Skin: General: Skin is warm and dry. Findings: No rash. Neurological: Mental Status: He is alert and oriented to person, place, and time. Cranial Nerves: No cranial nerve deficit. Sensory: No sensory deficit. Psychiatric: Behavior: Behavior normal. Thought Content: Thought content normal. Judgment: Judgment normal. Past Medical History Past Medical History: Diagnosis Date CHF (congestive heart failure) (HCC) Coronary artery disease Diabetes mellitus (HCC) Hyperlipidemia Myocardial infarction (HCC) Renal disorder Past Surgical History Past Surgical History: Procedure Laterality Date CARDIAC CATHETERIZATION CARDIAC PACEMAKER PLACEMENT JOINT REPLACEMENT ORTHOPEDIC SURGERY Family History History reviewed. No pertinent family history. Social History Social History Socioeconomic History Marital status: Tobacco Use Smoking status: Former Types: Cigarettes Quit date: 1987 Years since quittin.7 Smokeless tobacco: Never Vaping Use Vaping Use: Never used Substance and Sexual Activity Alcohol use: Yes Comment: rarely Drug use: Not Currently Allergies No Known Allergies Medications Patient's Medications No medications on file MEDICAL DECISION MAKING Labs Reviewed BASIC METABOLIC PANEL - Abnormal; Notable for the following components: Result Value Glucose 166 (*) BUN 28 (*) Creatinine 2.11 (*) eGFR 30 (*) All other components within normal limits Narrative: [facility] has implemented the eGFR calculation approach that does not have a coefficient for race that conforms to the NKF-ASN Task Force Recommendations. TROPONIN - Abnormal; Notable for the following components: Troponin T 73 (*) All other components within normal limits NT PRO BNP - Abnormal; Notable for the following components: NT-Pro BNP 3,228 (*) All other components within normal limits Narrative: Pride Study Cut-offs Rule In: < /= 50 Years >450 pg/mL 51 Years - 75 Years >900 pg/mL 76 Years - 99 Years >1800 pg/mL Rule Out: All patients <300 pg/mL CBC WITH AUTO DIFFERENTIAL - Abnormal; Notable for the following components: RBC 4.30 (*) MCV 100.2 (*) Lymphocytes Abs 0.74 (*) All other components within normal limits HEPATIC FUNCTION PANEL - Normal LIPASE - Normal TSH WITH REFLEX FREE T4 - Normal CBC AND DIFFERENTIAL Narrative: The following orders were created for panel order CBC w/ Diff. Procedure Abnormality Status --------- ------ CBC Auto Differential[[id number]] Abnormal Final result Please view results for these tests on the individual orders. URINALYSIS Results for orders placed or performed during the hospital encounter of 03/13/22 BMP Result Value Ref Range Sodium 143 135 - 145 mmol/L Potassium 3.9 3.5 - 5.1 mmol/L Chloride 104 98 - 108 mmol/L Bicarbonate 27 21 - 32 mmol/L Anion Gap 16 10 - 20 mmol/L Glucose 166 (H) 65 - 99 mg/dL BUN 28 (H) 8 - 25 mg/dL Creatinine 2.11 (H) 0.80 - 1.30 mg/dL eGFR 30 (L) >=60 mL/min/1.73 m2 BUN/Creatinine Ratio 13.3 10.0 - 20.0 Calcium 9.6 8.4 - 10.2 mg/dL Troponin Result Value Ref Range Troponin T 73 (CH) <=22 ng/L Troponin T Interpretation Possible acute cardiac injury. NT Pro BNP Result Value Ref Range NT-Pro BNP 3,228 (H) 0 - 300 pg/mL Lavender Top Result Value Ref Range Extra Tube Hold for add-ons. Mint Green Top Result Value Ref Range Extra Tube Hold for add-ons. Gold Top Result Value Ref Range Extra Tube Hold for add-ons. Light Blue Top Result Value Ref Range Extra Tube Hold for add-ons. Reza Top Result Value Ref Range Extra Tube Hold for add-ons. Hepatic Function Panel (LFT) Result Value Ref Range Total Protein 6.9 6.0 - 8.0 g/dL Albumin 4.1 3.2 - 5.2 g/dL Total Bilirubin 0.4 0.0 - 1.3 mg/dL Bilirubin, Direct 0.2 0.0 - 0.4 mg/dL Alkaline Phosphatase 81 40 - 150 U/L AST 16 0 - 45 U/L ALT 13 0 - 40 U/L Lipase Result Value Ref Range Lipase 31 15 - 65 U/L TSH with Reflex Free T4 Result Value Ref Range TSH 2.75 0.27 - 4.20 mcIU/mL EKG 12-lead Result Value Ref Range Ventricular Rate 82 BPM Atrial Rate 64 BPM QRS Duration 234 ms Q-T Interval 560 ms QTC Calculation (Bezet) 654 ms R Bertrand 174 degrees T Bertrand -18 degrees CBC Auto Differential Result Value Ref Range WBC 4.81 4.50 - 11.00 K/mcL RBC 4.30 (L) 4.50 - 5.90 M/mcL Hemoglobin 13.5 13.5 - 17.5 g/dL Hematocrit 43.1 41.0 - 53.0 % MCV 100.2 (H) 80.0 - 100.0 fL MCH 31.4 26.0 - 34.0 pg MCHC 31.3 31.0 - 37.0 g/dL Platelets 172 150 - 400 K/mcL RDW - CV 13.0 11.6 - 14.8 % MPV 10.8 9.4 - 12.4 fL Neutrophils 72.6 % Lymphocytes 15.4 % Monocytes 8.1 % Eosinophils 2.7 % Basophils 0.6 % IG Percent 0.60 % Neutrophils Abs 3.49 1.70 - 7.00 K/mcL Lymphocytes Abs 0.74 (L) 0.90 - 4.00 K/mcL Monocytes Abs 0.39 0.30 - 0.90 K/mcL Eosinophils Abs 0.13 0.00 - 0.50 K/mcL Basophils Abs 0.03 0.00 - 0.30 K/mcL IG Absolute 0.03 0.00 - 0.30 K/mcL Nucleated RBC 0.0 % Nucleated RBC Abs 0.00 0.00 - 0.00 K/mcL Radiographic Imaging (if any) During ED Visit CT Chest Abdomen Pelvis Without Contrast Final Result 1. Mild cardiomegaly. Coronary artery atherosclerosis. There appears to be some calcification along the intraseptal portion of the left ventricle. This can be seen with prior infarct. 2. Gallstones. The gallbladder is otherwise normal. 3. Sigmoid diverticulosis. 4. Degenerative disc disease from L2-L4. Workstation ID: [id number] XR Chest 1 View Final Result 1. Discoid atelectasis or scarring at the left lung base, otherwise no acute cardiopulmonary disease. 2. Stable cardiomegaly. KKV/alt Workstation ID: [id number] CT Thoracic Spine Reconstructed (Results Pending) CT Lumbar Spine Reconstructed (Results Pending) CT Thoracic Spine Reconstructed Final Result 1. No acute fracture or traumatic malalignment. 2. Mild levoconvex curvature of the thoracic spine, with mild to moderate multilevel degenerative disc changes. 3. Atherosclerotic calcifications in the coronary arteries and aorta. Workstation ID: [id number] CT Chest Abdomen Pelvis Without Contrast Final Result 1. Mild cardiomegaly. Coronary artery atherosclerosis. There appears to be some calcification along the intraseptal portion of the left ventricle. This can be seen with prior infarct. 2. Gallstones. The gallbladder is otherwise normal. 3. Sigmoid diverticulosis. 4. Degenerative disc disease from L2-L4. Workstation ID: [id number] XR Chest 1 View Final Result 1. Discoid atelectasis or scarring at the left lung base, otherwise no acute cardiopulmonary disease. 2. Stable cardiomegaly. KKV/alt Workstation ID: [id number] CT Lumbar Spine Reconstructed (Results Pending) Medications Ordered/Given During ED Visit Medications sodium chloride (PF) (NS) flush 5 mL (has no administration in time range) And sodium chloride 0.9% (NS) (has no administration in time range) furosemide (LASIX) injection 40 mg (has no administration in time range) aspirin chewable tablet 81 mg (has no administration in time range) Procedures EKG reveals 100% paced rhythm, rate of 82. QRS interval prolonged at 234 ms. This is interpreted by ED physician. Due to patient having flank pain/back pain, obtain CT imaging of the chest/abdomen/pelvis and thoracic/lumbar spine. Fortunately, no acute abnormalities identified. Laboratory studies significant for BUN and creatinine at 28 and 2.11, which appears to be stable chronic kidney disease. Troponin elevated at 73, with possible contributions from both renal and cardiac. Will benefit from serial troponins. EKG uninterpretable, secondary to paced rhythm, so cannot rule out STEMI with 100% certainty. B nitric peptide elevated 3228. Again, patient family concerned about his progressively worsening symptoms, significant episode with just very limited exertion [place] the golf [place]. Hopefully, patient would benefit from an observation here at [facility] for consideration of echocardiogram imaging, possible cardiology consultation, possible nephrology consultation, possible electrophysiology consultation. Disposition hospitalization Diagnosis Exertional dyspnea Near syncope Chronic kidney disease Elevated troponin Norbert Carpio MD 03/13/22 1632 Pt to triage desk with CO chest pain, tightness, and swollen feet. Pt with history of TN, CHF, and has a pacemaker/defibrillator documented in this encounter [facility] 03-13-2022 Emergency department Triage note Pt to triage desk with CO chest pain, tightness, and swollen feet. Pt with history of TN, CHF, and has a pacemaker/defibrillator [facility] 12-25-2021 Miscellaneous Notes Patient has been identified by name and date of : Yes Pending Prescriptions Disp Refills SERTRALINE 50 MG TABLET 90 tablet 3 Sig: Take 1 tablet by mouth once daily. MARK: No RX INSTRUCTIONS: Patient aware RX will be sent to pharmacy. No need to notify patient. Meghann Gallo documented in this encounter [facility] 11-22-2021 Instructions Roberto Vizcaino - 11/22/2021 10:51 AM EDT Continue with lotion to feet Lotions, ie sia healthy skin, eucerin, gold licona Continue to offload heels while in bed F/uin 1 month documented in this encounter [facility] 11-22-2021 History of Present illness Narrative FOLLOW UP PODIATRIC OFFICE VISIT Chief Complaint: This 85 year old who presents for follow up:left heel ulceration Patient presents to clinic for follow-up left heel ulceration Patient believes heel is now healed. He has no other issues with his foot. PAIN EVALUATION No data found in the last 1 encounters. Hemoglobin A1C Date Value Ref Range Status 11/06/2021 7.1 (H) 4.3 - 5.6 % Final Comment: Stateless Diabetes Association guidelines indicate that patients with HgbA1c in the range 5.7-6.4% are at increased risk for development of diabetes, and intervention by lifestyle modification may be beneficial. HgbA1c greater or equal to 6.5% is considered diagnostic of diabetes. PCP: Perry Olivas MD PAST MEDICAL HISTORY Diagnosis Date Abscess of intestine Acute myocardial infarction, unspecified site, subsequent episode of care x 2 ASHD (arteriosclerotic heart disease) 03/20/2010 Bilateral hearing loss 10/24/2016 Cardiomyopathy, ischemic 05/18/2016 Chronic low back pain with sciatica 05/07/2017 CKD (chronic kidney disease) stage 3, GFR 30-59 ml/min ([facility]) 10/24/2016 DDD (degenerative disc disease), lumbar 10/19/2011 Diabetes mellitus type 2, controlled, without complications ([facility]) 07/25/2005 Diverticulitis of colon (without mention of hemorrhage)(562.11) 04/18/2005 Essential hypertension 03/20/2010 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 Mixed hyperlipidemia 04/18/2005 Neurogenic claudication due to lumbar spinal stenosis 05/01/2017 Other psoriasis 04/18/2005 Paroxysmal atrial fibrillation (HCC) 05/06/2020 Polymyalgia rheumatica ([facility]) Primary osteoarthritis involving multiple joints 07/25/2005 Unspecified hemorrhoids with other complication VT (ventricular tachycardia) ([facility]) with AICD 07/24/2017 AICD Current Outpatient Medications Medication Sig gabapentin (NEURONTIN) 100 mg capsule TAKE 1 CAPSULE BY MOUTH EVERY DAY AT BEDTIME sertraline (ZOLOFT) 50 mg tablet Take 1 tablet by mouth once daily. folic acid 1 mg tablet Take 1 tablet by mouth once daily. naltrexone capsule 4.5 mg (CPD) Take 1 capsule by mouth once daily. Clobetasol Propionate (TEMOVATE) 0.05 % external solution Apply 1 application to affected area once daily. rosuvastatin (CRESTOR) 10 mg tablet Take 10 mg by mouth once daily. Dr. Napier, [facility], Lipidology vit A/vit C/vit E/zinc/copper (PRESERVISION AREDS ORAL) Take 1 tablet by mouth twice daily. apixaban (ELIQUIS) 2.5 mg tab tab(s) Take 1 tablet by mouth twice daily. furosemide (LASIX) 40 mg tablet Take 2 tablets by mouth every morning AND 1 tablet daily before lunch. sacubitril-valsartan (ENTRESTO) 24-26 mg tablet Take 1 tablet by mouth twice daily. metoprolol succinate ER (TOPROL XL) 25 mg 24 hr tablet Take 1 tablet by mouth once daily. Per Dr. Ibarra. coenzyme Q10 (CO Q-10) 100 mg cap capsule Take 100 mg by mouth once daily. isosorbide mononitrate ER (IMDUR) 60 mg 24 hr tablet Take 60 mg by mouth once daily. nitroglycerin sublingual (NITROSTAT) 0.4 mg SL tablet Dissolve 1 tablet under the tongue as needed for Chest Pain. If no pain relief call 911. Cholecalciferol, Vitamin D3, 2,000 unit cap Take 1 capsule by mouth once daily. aspirin, enteric coated (ADULT LOW DOSE ASPIRIN) 81 mg EC tablet Take 1 tablet by mouth once daily. Nkprtxpyziuje-Rbkcczdn-Veiiwq (CENTRUM SILVER) Tab Take 1 tablet by mouth once daily. No current facility-administered medications for this visit. ALLERGIES Allergen Reactions Accupril [Quinapril* Swelling LIPS SWELL ANGIOEDEMA Diovan [Valsartan] Hives hives when [id number] Biaxin [Clarithromy* Intolerance Crestor [Rosuvastat* Intolerance MYALGIA Lipitor [Atorvastat* Intolerance MYALGIA Pravachol [Pravasta* Intolerance MYALGIAS Vytorin 04/09 [Ezet* Intolerance MYALGIAS Zyrtec [Cetirizine * Intolerance MYALGIA Avapro [Irbesartan] Intolerance myalgia Benicar [Olmesartan* Intolerance myalgia Chlorthalidone Other: See Comments muscle aching,leg pain difficulty walk Lovaza [Glasgow-3 Aci* Other: See Comments myalgias but can take fish oil Metoprolol Intolerance myalgia,fatigue, Red Yeast Rice Intolerance elevated ck Zetia [Ezetimibe] Intolerance myalgia PAST SURGICAL HISTORY Procedure Laterality Date COLONOSCOPY 07/14/2003 COLONOSCOPY FLX DX W/COLLJ SPEC WHEN PFRMD 08/27/2013 Colonoscopy CORONARY STENT EA VESSEL 08/01/2017 ALAN mid RCA, balloon angioplasty distal RCA 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 1996. 2002. PAST SURGICAL HISTORY OF 08/2001 Arthroscopy Right Shoulder PAST SURGICAL HISTORY OF 08/08/2004 Right CTR PAST SURGICAL HISTORY OF 08/24/2004 Left CTR STENT - CORONARY 07/04/2017 ALAN x 3 to LAD, ALAN x 1 prox. OM1. (4 stents) Physical Exam: OBJECTIVE: Constitutional: Pt is a well developed 85 year old male who is alert, oriented, cooperative and in no apparent distress. Eyes: Following during examination. No redness or drainage. Respiratory: RR normal and nonlabored. Even breathing. No evidence of distress. Psychology: Patient is engaged during conversation. Normal affect and mood. Does not appear depressed or anxious. NVSI unchanged from previous visit. Dermatological: Nails 1-5 b/l are normal. Webspaces clean and dry 1-4 b/l. Skin appears well hydrated and supple. good color, texture, turgor. No open lesions present. No callosities present. Musculoskeletal/Orthopaedic: Patient has no pain to palpation of b/l feet ASSESSMENT: (I73.9) PAD (peripheral artery disease) ([facility]) (primary encounter (L97.299) Skin ulcer of left heel, limited to breakdown of skin ([facility]) PLAN: All wounds to left foot are now healed. Only dryness present No wounds noted to right foot Recommend lotion to feet daily F/u in 1 month for nail care Roberto Vizcaino DPM Patient presents with: Left Heel - Follow Up, Wound Check Left 5th Toe - Wound Check documented in this encounter [facility] 11-21-2021 History of Present illness Narrative Images from the original note were not included. Heart, Vascular and Thoracic [place] DEPARTMENT OF VASCULAR SURGERY OUTPATIENT VISIT DATE November 21, 2021 OUTPATIENT VISIT TYPE CONSULTATION SERVICE DATE: 11/21/2021 SERVICE TIME: 9:50 AM PRIMARY CARE PHYSICIAN: Perry Olivas MD REFERRING PROVIDER: Chantell Urbano [id number] [address] [id number] Consult requested for an opinion regarding the evaluation and treatment of the above. My final impression and recommendations will be communicated back to the requesting physician by way of the shared medical record or letter via US mail. CHIEF COMPLAINT: Patient presents with: New Patient History of Present Illness: Patient is a 85 year old White male presenting for consultation, evaluation and possible treatment of leg edema and history of left heel and toe blisters. He reports bilateral lower extremity heaviness and claudication with walking. He ambulates with a cane. He has significant spinal disease and is working with pain management regarding injections. Denies rest pain. Blisters have healed. 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 PAIN ASSESSMENT: PAIN EVALUATION No data found in the last 1 encounters. Duration of Symptoms: Progressive CARDIOVASCULAR RISK FACTORS: Diabetes and Hypertension PAST MEDICAL HISTORY Diagnosis Date Abscess of intestine Acute myocardial infarction, unspecified site, subsequent episode of care x 2 ASHD (arteriosclerotic heart disease) 03/20/2010 Bilateral hearing loss 10/24/2016 Cardiomyopathy, ischemic 05/18/2016 Chronic low back pain with sciatica 05/07/2017 CKD (chronic kidney disease) stage 3, GFR 30-59 ml/min ([facility]) 10/24/2016 DDD (degenerative disc disease), lumbar 10/19/2011 Diabetes mellitus type 2, controlled, without complications ([facility]) 07/25/2005 Diverticulitis of colon (without mention of hemorrhage)(562.11) 04/18/2005 Essential hypertension 03/20/2010 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 Mixed hyperlipidemia 04/18/2005 Neurogenic claudication due to lumbar spinal stenosis 05/01/2017 Other psoriasis 04/18/2005 Paroxysmal atrial fibrillation (HCC) 05/06/2020 Polymyalgia rheumatica ([facility]) Primary osteoarthritis involving multiple joints 07/25/2005 Unspecified hemorrhoids with other complication VT (ventricular tachycardia) ([facility]) with AICD 07/24/2017 AICD PAST SURGICAL HISTORY Procedure Laterality Date COLONOSCOPY 07/14/2003 COLONOSCOPY FLX DX W/COLLJ SPEC WHEN PFRMD 08/27/2013 Colonoscopy CORONARY STENT EA VESSEL 08/01/2017 ALAN mid RCA, balloon angioplasty distal RCA 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 1995. 2002. PAST SURGICAL HISTORY OF 08/2001 Arthroscopy Right Shoulder PAST SURGICAL HISTORY OF 08/08/2004 Right CTR PAST SURGICAL HISTORY OF 08/24/2004 Left CTR STENT - CORONARY 07/04/2017 ALAN x 3 to LAD, ALAN x 1 prox. OM1. (4 stents) SOCIAL HISTORY: Social History Tobacco Use Smoking status: Former Smoker Packs/day: 0.50 Years: 30.00 Pack years: 15.00 Types: Cigarettes Start date: 07/01/1957 Quit date: 07/01/1979 Years since quittin.4 Smokeless tobacco: Never Used Substance Use Topics Alcohol use: Yes Comment: rare wine. Drug use: No FAMILY HISTORY Problem Relation Age of Onset Diabetes Mother Arthritis Mother Breast Cancer Sister MEDICATIONS: gabapentin (NEURONTIN) 100 mg capsule TAKE 1 CAPSULE BY MOUTH EVERY DAY AT BEDTIME sertraline (ZOLOFT) 50 mg tablet Take 1 tablet by mouth once daily. folic acid 1 mg tablet Take 1 tablet by mouth once daily. naltrexone capsule 4.5 mg (CPD) Take 1 capsule by mouth once daily. Clobetasol Propionate (TEMOVATE) 0.05 % external solution Apply 1 application to affected area once daily. rosuvastatin (CRESTOR) 10 mg tablet Take 10 mg by mouth once daily. Dr. Napier, [facility], Lipidology vit A/vit C/vit E/zinc/copper (PRESERVISION AREDS ORAL) Take 1 tablet by mouth twice daily. apixaban (ELIQUIS) 2.5 mg tab tab(s) Take 1 tablet by mouth twice daily. furosemide (LASIX) 40 mg tablet Take 2 tablets by mouth every morning AND 1 tablet daily before lunch. sacubitril-valsartan (ENTRESTO) 24-26 mg tablet Take 1 tablet by mouth twice daily. metoprolol succinate ER (TOPROL XL) 25 mg 24 hr tablet Take 1 tablet by mouth once daily. Per Dr. Ibarra. coenzyme Q10 (CO Q-10) 100 mg cap capsule Take 100 mg by mouth once daily. isosorbide mononitrate ER (IMDUR) 60 mg 24 hr tablet Take 60 mg by mouth once daily. nitroglycerin sublingual (NITROSTAT) 0.4 mg SL tablet Dissolve 1 tablet under the tongue as needed for Chest Pain. If no pain relief call 911. Cholecalciferol, Vitamin D3, 2,000 unit cap Take 1 capsule by mouth once daily. aspirin, enteric coated (ADULT LOW DOSE ASPIRIN) 81 mg EC tablet Take 1 tablet by mouth once daily. Jdafttkrfqcnw-Chxidrha-Hjqbnj (CENTRUM SILVER) Tab Take 1 tablet by mouth once daily. ALLERGIES: ALLERGIES Allergen Reactions Accupril [Quinapril* Swelling LIPS SWELL ANGIOEDEMA Diovan [Valsartan] Hives hives when [id number] Biaxin [Clarithromy* Intolerance Crestor [Rosuvastat* Intolerance MYALGIA Lipitor [Atorvastat* Intolerance MYALGIA Pravachol [Pravasta* Intolerance MYALGIAS Vytorin 04/09 [Ezet* Intolerance MYALGIAS Zyrtec [Cetirizine * Intolerance MYALGIA Avapro [Irbesartan] Intolerance myalgia Benicar [Olmesartan* Intolerance myalgia Chlorthalidone Other: See Comments muscle aching,leg pain difficulty walk Lovaza [[place]asgow-3 Aci* Other: See Comments myalgias but can take fish oil Metoprolol Intolerance myalgia,fatigue, Red Yeast Rice Intolerance elevated ck Zetia [Ezetimibe] Intolerance myalgia REVIEW of SYSTEMS: Constitutional: No weight loss, malaise or fevers. HEENT: Negative for frequent or significant headaches, No changes in hearing or vision, no nose bleeds or other nasal problems Respiratory: Negative for cough and Positive for shortness of breath on exertion and wheezing Cardiovascular: Negative for chest pain and palpitations and Positive for leg swelling Gatrointestinal: Negative for abdominal discomfort, blood in stools or black stools or change in bowel habits Genitourinary: No history of dysuria, frequency, or incontinence Musculoskeletal: Negative for joint pain or swelling, back pain or muscle pain Endocrine: Negative for cold or heat intolerance, polyuria, polydipsia and goiter Hematology/Lymphatic: Negative for prolonged bleeding and swollen nodes and Positive for bruises easily Neurologic: No history or headaches, syncope, paralysis, seizures or tremors Integumentary: Negative for lesions, rash, and itching. PHYSICAL EXAM: VITALS: There were no vitals taken for this visit. General: Alert, oriented, cooperative, healthy appearance Integumentary: Normal color, no rash, no lesions. HEENT: EOM, pupils equal, round and reactive. Cardiovascular: Pulse regular. Lungs: No chest deformities or chest wall tenderness. Abdomen: Not examined Extremities: Trace edema, toe discoloration, equal temperature, cap refill 3-4seconds, no tissue loss or ulcerations, no heel blisters visualized. Significant dry flaky skin bilaterally Neurological: AAOx3. Normal cognition and motor skills. Vascular: Posterior Tibial Right: Dopplerable Only - Left: Dopplerable Only Dorsalis Pedal Right: Dopplerable Only - Left: Dopplerable Only Diagnostic tests reviewed for today's visit: Most recent labs Most recent imaging PVRs- Right borderline at rest, 0.99, Left mild disease, KRIS 0.71 IMPRESSION: Mr. Garcia is a 85 year old male with peripheral arterial disease . PLAN and RECOMMENDATIONS: Reviewed PVRs with patient Currently areas of concern are healed Recommend moisturizing legs and feet- recommend vitamin A&D ointment, Continue with close follow up care with podiatry Follow up in 6 months or sooner with any concerns, ulcers, or worsening symptoms SIGNATURE: Radha Velazquez DO PATIENT NAME: Marcos Garcia DATE: November 21, 2021 TIME: 9:50 AM documented in this encounter [facility] 11-09-2021 Instructions Perry Olivas MD - 11/09/2021 9:[address] Lopez for an eye exam. documented in this encounter [facility] 11-09-2021 History of Present illness Narrative This note was created using VSportoriter. Subjective Marcos Garcia is a 85 year old male. He saw Dr. Carvajal at [facility], and was deemed non operative for low back pain. He was referred to pain management and just had an epidural injection in his lumbar area by Dr. Carney. DM was elevating. Cardiac issues were stable. Review of Systems Constitutional: Negative. Respiratory: Negative. Cardiovascular: Positive for leg swelling. Negative for chest pain and palpitations. Gastrointestinal: Negative. Genitourinary: Negative. Musculoskeletal: Positive for back pain and gait problem. Neurological: Positive for weakness. 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 Chronic Kidney Disease, Without Long-Term Current Use of Insulin ([facility]) Primary Osteoarthritis Involving Multiple Joints Essential Hypertension Ashd (Arteriosclerotic Heart Disease) Cardiomyopathy, Ischemic VT (ventricular tachycardia) ([facility]) with AICD Bilateral Hearing Loss Neurogenic Claudication Due to Lumbar Spinal Stenosis Obesity, Class I, Bmi 30-34.9 Dermatophytosis of Nail Mood Disorder ([facility]) Gait Disturbance Paroxysmal Atrial Fibrillation ([facility]) Chronic Bilateral Low Back Pain Toe Ulcer, Left, Limited to Breakdown of Skin (Hcc) Current Outpatient Medications Medication Sig naltrexone capsule 4.5 mg (CPD) Take 1 capsule by mouth once daily. Clobetasol Propionate (TEMOVATE) 0.05 % external solution Apply 1 application to affected area once daily. rosuvastatin (CRESTOR) 10 mg tablet Take 10 mg by mouth once daily. Dr. Napier, [facility], Lipidology vit A/vit C/vit E/zinc/copper (PRESERVISION AREDS ORAL) Take 1 tablet by mouth twice daily. sertraline (ZOLOFT) 50 mg tablet Take 1 tablet by mouth once daily. folic acid 1 mg tablet Take 1 tablet by mouth once daily. apixaban (ELIQUIS) 2.5 mg tab tab(s) Take 1 tablet by mouth twice daily. furosemide (LASIX) 40 mg tablet Take 2 tablets by mouth every morning AND 1 tablet daily before lunch. sacubitril-valsartan (ENTRESTO) 24-26 mg tablet Take 1 tablet by mouth twice daily. metoprolol succinate ER (TOPROL XL) 25 mg 24 hr tablet Take 1 tablet by mouth once daily. Per Dr. Ibarra. coenzyme Q10 (CO Q-10) 100 mg cap capsule Take 100 mg by mouth once daily. isosorbide mononitrate ER (IMDUR) 60 mg 24 hr tablet Take 60 mg by mouth once daily. nitroglycerin sublingual (NITROSTAT) 0.4 mg SL tablet Dissolve 1 tablet under the tongue as needed for Chest Pain. If no pain relief call 911. Cholecalciferol, Vitamin D3, 2,000 unit cap Take 1 capsule by mouth once daily. aspirin, enteric coated (ADULT LOW DOSE ASPIRIN) 81 mg EC tablet Take 1 tablet by mouth once daily. Ttwbyrfvsjoal-Oglddzyo-Pcioet (CENTRUM SILVER) Tab Take 1 tablet by mouth once daily. No current facility-administered medications for this visit. Objective BP 112/68 (BP Site: Left Arm, BP Position: Sitting, BP Cuff Size: Large Adult) Pulse 64 Temp 36.7 C (98 F) (Temporal Artery) Resp 18 Wt 85.3 kg (188 lb) BMI 27.76 kg/m Physical Exam Constitutional: General: He is not in acute distress. Comments: On wheelchair, uses a cane. Cardiovascular: Rate and Rhythm: Normal rate and regular rhythm. Heart sounds: No murmur heard. No gallop. Pulmonary: Breath sounds: Normal breath sounds. No wheezing or rales. Abdominal: Palpations: Abdomen is soft. Tenderness: There is no abdominal tenderness. Musculoskeletal: Right lower le+ Pitting Edema present. Left lower le+ Pitting Edema present. Neurological: Mental Status: He is alert. Component Latest Ref Rng & Units 11/06/2021 Creatinine, Ur Random (UCRR) 20.0 - 300.0 mg/dL 86.4 Albumin, Urine Random mg/L 228.5 Albumin/Creat Ratio <30 mg/g 264 (H) Hemoglobin A1C 4.3 - 5.6 % 7.1 (H) Estimated Average Glucose mg/dL 157 Assessment and Plan 1. Controlled type 2 diabetes mellitus with stage 3 chronic kidney disease, without long-term current use of insulin (HCC) - ICD9: 250.40, 585.3, ICD10: E11.22, N18.30 (primary diagnosis) worsening control - Focus on diet. Eye exam due. Patient on no medication at this time. - COMP METABOLIC PANEL - HGB A1C - ALBUMIN/CREAT RATIO RND UR 2. Mood disorder (HCC) - ICD9: 296.90, ICD10: F39 Controlled. - SERTRALINE 50 MG TABLET 3. Paroxysmal atrial fibrillation (HCC) - ICD9: 427.31, ICD10: I48.0 Controlled. - FOLIC ACID 1 MG TABLET 4. Chronic bilateral low back pain, unspecified whether sciatica present - ICD9: 724.2, 338.29, ICD10: M54.50, G89.[address] Carney. 5. Mixed hyperlipidemia - ICD9: 272.2, ICD10: E78.2 - good control - Continue current medication. - LIPID PANEL BASIC Perry Olivas MD documented in this encounter [facility] 10-23-2021 Instructions Roberto Vizcaino - 10/23/2021 10:57 AM EDT Continue with topical antibiotic to left heel Hold on band aide as I do not want the adhesive residue to tear at the skin F/u in 1 month Roberto Vizcaino DPM documented in this encounter [facility] 10-23-2021 History of Present illness Narrative FOLLOW UP PODIATRIC OFFICE VISIT Chief Complaint: This 85 year old who presents for follow up:ulceraiton of left heel and left 5th toe Patient continues with neosporin to his left 5th toe and left heel He has been applying topical antibiotic to his heel He has appointment with Dr. Velazquez on November 21 He has no other complaints. PAIN EVALUATION No data found in the last 1 encounters. Hemoglobin A1C (POCT) Date Value Ref Range Status 05/12/2021 6.5 4.2 - 5.6 % Final Comment: Point of care (POC) Hemoglobin A1c (HGBA1C) testing is intended to assess glucose control and provide a management tool for patients known to have diabetes and their healthcare providers. Target HGBA1C levels may depend on specific clinical circumstances. POC HGBA1C is not intended for use as a diagnostic or screening test; laboratory-based testing should be used for diagnostic purposes. The following information is supplemental and may not be applicable to specific diabetes management situations: The POC device chef kitchen manager provides a normal range of 4.2% to 6.5% for the HGBA1C POC test. However, the [employer] guidelines indicate that patients with HGBA1C in the range of 5.7% to 6.4% are at increased risk for development of diabetes and that intervention by lifestyle modification may be beneficial. A HGBA1C level greater than or equal to 6.5% is considered diagnostic of diabetes, pending confirmatory testing. Use of HGBA1C testing to evaluate glucose control may not be appropriate for patients with hemoglobin variants or other conditions (e.g. anemia) that alter red blood cell lifespan. PCP: Perry Olivas MD PAST MEDICAL HISTORY Diagnosis Date Abscess of intestine Acute myocardial infarction, unspecified site, subsequent episode of care x 2 ASHD (arteriosclerotic heart disease) 03/20/2010 Bilateral hearing loss 10/24/2016 Cardiomyopathy, ischemic 05/18/2016 Chronic low back pain with sciatica 05/07/2017 CKD (chronic kidney disease) stage 3, GFR 30-59 ml/min ([facility]) 10/24/2016 DDD (degenerative disc disease), lumbar 10/19/2011 Diabetes mellitus type 2, controlled, without complications ([facility]) 07/25/2005 Diverticulitis of colon (without mention of hemorrhage)(562.11) 04/18/2005 Essential hypertension 03/20/2010 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 Clobetasol Propionate (TEMOVATE) 0.05 % external solution Apply 1 application to affected area once daily. rosuvastatin (CRESTOR) 10 mg tablet Take 10 mg by mouth once daily. Dr. Napier, [facility], Lipidology vit A/vit C/vit E/zinc/copper (PRESERVISION AREDS ORAL) Take 1 tablet by mouth twice daily. sertraline (ZOLOFT) 50 mg tablet Take 1 tablet by mouth once daily. folic acid 1 mg tablet Take 1 tablet by mouth once daily. apixaban (ELIQUIS) 2.5 mg tab tab(s) Take 1 tablet by mouth twice daily. furosemide (LASIX) 40 mg tablet Take 2 tablets by mouth every morning AND 1 tablet daily before lunch. sacubitril-valsartan (ENTRESTO) 24-26 mg tablet Take 1 tablet by mouth twice daily. metoprolol succinate ER (TOPROL XL) 25 mg 24 hr tablet Take 1 tablet by mouth once daily. Per Dr. Ibarra. coenzyme Q10 (CO Q-10) 100 mg cap capsule Take 100 mg by mouth once daily. isosorbide mononitrate ER (IMDUR) 60 mg 24 hr tablet Take 60 mg by mouth once daily. nitroglycerin sublingual (NITROSTAT) 0.4 mg SL tablet Dissolve 1 tablet under the tongue as needed for Chest Pain. If no pain relief call 911. Cholecalciferol, Vitamin D3, 2,000 unit cap Take 1 capsule by mouth once daily. aspirin, enteric coated (ADULT LOW DOSE ASPIRIN) 81 mg EC tablet Take 1 tablet by mouth once daily. Gbidfoubgtkms-Ftgrmtfo-Xfmbcs (CENTRUM SILVER) Tab Take 1 tablet by mouth once daily. No current facility-administered medications for this visit. ALLERGIES Allergen Reactions Accupril [Quinapril* Swelling LIPS SWELL ANGIOEDEMA Diovan [Valsartan] Hives hives when [id number] Biaxin [Clarithromy* Intolerance Crestor [Rosuvastat* Intolerance MYALGIA Lipitor [Atorvastat* Intolerance MYALGIA Pravachol [Pravasta* Intolerance MYALGIAS Vytorin 04/09 [Ezet* Intolerance MYALGIAS Zyrtec [Cetirizine * Intolerance MYALGIA Avapro [Irbesartan] Intolerance myalgia Benicar [Olmesartan* Intolerance myalgia Chlorthalidone Other: See Comments muscle aching,leg pain difficulty walk Lovaza [Glasgow-3 Aci* Other: See Comments myalgias but can take fish oil Metoprolol Intolerance myalgia,fatigue, Red Yeast Rice Intolerance elevated ck Zetia [Ezetimibe] Intolerance myalgia PAST SURGICAL HISTORY Procedure Laterality Date COLONOSCOPY 07/14/2003 COLONOSCOPY FLX DX W/COLLJ SPEC WHEN PFRMD 08/27/2013 Colonoscopy CORONARY STENT EA VESSEL 08/01/2017 ALAN mid RCA, balloon angioplasty distal RCA 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 1996. 2002. PAST SURGICAL HISTORY OF 08/2001 Arthroscopy Right Shoulder PAST SURGICAL HISTORY OF 08/08/2004 Right CTR PAST SURGICAL HISTORY OF 08/24/2004 Left CTR STENT - CORONARY 07/04/2017 ALAN x 3 to LAD, ALAN x 1 prox. OM1. (4 stents) Physical Exam: OBJECTIVE: Constitutional: Pt is a well developed 85 year old male who is alert, oriented, cooperative and in no apparent distress. Eyes: Following during examination. No redness or drainage. Respiratory: RR normal and nonlabored. Even breathing. No evidence of distress. Psychology: Patient is engaged during conversation. Normal affect and mood. Does not appear depressed or anxious. NVSI unchanged from previous visit. Dermatological: Nails 1-5 b/l are normal. Webspaces clean and dry 1-4 b/l. Skin appears well hydrated and supple. good color, texture, turgor. No open lesions present. Prior blisters to left 5th metatarsal remain healed. Superficial blisters without signs of infection noted to left posterior heel. Musculoskeletal/Orthopaedic: Patient has no pain to palpation of b/l feet ASSESSMENT: (I73.9) PAD (peripheral artery disease) ([facility]) (primary encounter diagnosis) (L97.562) Skin ulcer of left heel, limited to breakdown of skin ([facility]) PLAN: Past blister of left 5th metatarsal is now healed. Continue with lotion to feet. Blisters of left heel appear to be healing. Continue with topical antibiotic cream. Will hold on band aid out of concern it may lead to irritation F/u in 1 month or sooner if problems arise. AMB ROOMING INTAKE FLOWSHEET DATA Risk Screening Do you have concerns about personal safety or safety in the home?: No Patient presents with: Right Foot - Follow Up Left Foot - Follow Up: Opened callus on heel Pt states open callus on bilateral heels . Pt also states open wound on left 5th toe. Pt denies pain. documented in this encounter [facility] 10-09-2021 Instructions Roberto Vizcaino - 10/09/2021 10:55 AM EDT Continue with neosporin and guaze to left heel Apply pillow below legs to offload heel while in bed or chair F/u in 2 weeks documented in this encounter [facility] 10-09-2021 History of Present illness Narrative Follow up podiatric office visit for: Chief Complaint: This 85 year old who presents for follow up:left heel ulceration. Patient presents to clinic for follow-up left heel ulceration. Patient is currently applying neosporin to the left heel. Patient is concerned that the callus/ulceration continue to break open. The ulceration to the left 5th toe remain healed. Patient has an appointment with Dr. Velazquez November 21. PAIN EVALUATION No data found in the last 1 encounters. Hemoglobin A1C (POCT) Date Value Ref Range Status 05/12/2021 6.5 4.2 - 5.6 % Final Comment: Point of care (POC) Hemoglobin A1c (HGBA1C) testing is intended to assess glucose control and provide a management tool for patients known to have diabetes and their healthcare providers. Target HGBA1C levels may depend on specific clinical circumstances. POC HGBA1C is not intended for use as a diagnostic or screening test; laboratory-based testing should be used for diagnostic purposes. The following information is supplemental and may not be applicable to specific diabetes management situations: The POC device chef kitchen manager provides a normal range of 4.2% to 6.5% for the HGBA1C POC test. However, the [employer] Diabetes [employer] guidelines indicate that patients with HGBA1C in the range of 5.7% to 6.4% are at increased risk for development of diabetes and that intervention by lifestyle modification may be beneficial. A HGBA1C level greater than or equal to 6.5% is considered diagnostic of diabetes, pending confirmatory testing. Use of HGBA1C testing to evaluate glucose control may not be appropriate for patients with hemoglobin variants or other conditions (e.g. anemia) that alter red blood cell lifespan. PCP: Perry Olivas MD PAST MEDICAL HISTORY Diagnosis Date Abscess of intestine Acute myocardial infarction, unspecified site, subsequent episode of care x 2 ASHD (arteriosclerotic heart disease) 03/20/2010 Bilateral hearing loss 10/24/2016 Cardiomyopathy, ischemic 05/18/2016 Chronic low back pain with sciatica 05/07/2017 CKD (chronic kidney disease) stage 3, GFR 30-59 ml/min ([facility]) 10/24/2016 DDD (degenerative disc disease), lumbar 10/19/2011 Diabetes mellitus type 2, controlled, without complications ([facility]) 07/25/2005 Diverticulitis of colon (without mention of hemorrhage)(562.11) 04/18/2005 Essential hypertension 03/20/2010 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 Clobetasol Propionate (TEMOVATE) 0.05 % external solution Apply 1 application to affected area once daily. rosuvastatin (CRESTOR) 10 mg tablet Take 10 mg by mouth once daily. Dr. Napier [facility], Lipidology vit A/vit C/vit E/zinc/copper (PRESERVISION AREDS ORAL) Take 1 tablet by mouth twice daily. sertraline (ZOLOFT) 50 mg tablet Take 1 tablet by mouth once daily. folic acid 1 mg tablet Take 1 tablet by mouth once daily. apixaban (ELIQUIS) 2.5 mg tab tab(s) Take 1 tablet by mouth twice daily. furosemide (LASIX) 40 mg tablet Take 2 tablets by mouth every morning AND 1 tablet daily before lunch. sacubitril-valsartan (ENTRESTO) 24-26 mg tablet Take 1 tablet by mouth twice daily. metoprolol succinate ER (TOPROL XL) 25 mg 24 hr tablet Take 1 tablet by mouth once daily. Per Dr. Ibarra. coenzyme Q10 (CO Q-10) 100 mg cap capsule Take 100 mg by mouth once daily. isosorbide mononitrate ER (IMDUR) 60 mg 24 hr tablet Take 60 mg by mouth once daily. nitroglycerin sublingual (NITROSTAT) 0.4 mg SL tablet Dissolve 1 tablet under the tongue as needed for Chest Pain. If no pain relief call 911. Cholecalciferol, Vitamin D3, 2,000 unit cap Take 1 capsule by mouth once daily. aspirin, enteric coated (ADULT LOW DOSE ASPIRIN) 81 mg EC tablet Take 1 tablet by mouth once daily. Qrpcekkycnjnp-Rlkaqvcv-Krxxga (CENTRUM SILVER) Tab Take 1 tablet by mouth once daily. No current facility-administered medications for this visit. ALLERGIES Allergen Reactions Accupril [Quinapril* Swelling LIPS SWELL ANGIOEDEMA Diovan [Valsartan] Hives hives when [id number] Biaxin [Clarithromy* Intolerance Crestor [Rosuvastat* Intolerance MYALGIA Lipitor [Atorvastat* Intolerance MYALGIA Pravachol [Pravasta* Intolerance MYALGIAS Vytorin 04/09 [Ezet* Intolerance MYALGIAS Zyrtec [Cetirizine * Intolerance MYALGIA Avapro [Irbesartan] Intolerance myalgia Benicar [Olmesartan* Intolerance myalgia Chlorthalidone Other: See Comments muscle aching,leg pain difficulty walk Lovaza [Glasgow-3 Aci* Other: See Comments myalgias but can take fish oil Metoprolol Intolerance myalgia,fatigue, Red Yeast Rice Intolerance elevated ck Zetia [Ezetimibe] Intolerance myalgia PAST SURGICAL HISTORY Procedure Laterality Date COLONOSCOPY 07/14/2003 COLONOSCOPY FLX DX W/COLLJ SPEC WHEN PFRMD 08/27/2013 Colonoscopy CORONARY STENT EA VESSEL 08/01/2017 ALAN mid RCA, balloon angioplasty distal RCA 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 1996. 2002. PAST SURGICAL HISTORY OF 08/2001 Arthroscopy Right Shoulder PAST SURGICAL HISTORY OF 08/08/2004 Right CTR PAST SURGICAL HISTORY OF 08/24/2004 Left CTR STENT - CORONARY 07/04/2017 ALAN x 3 to LAD, ALAN x 1 prox. OM1. (4 stents) Physical Exam: Constitutional: Pt is a well developed 85 year old male who is alert, oriented, cooperative and in no apparent distress. OBJECTIVE: Vascular: DP and Pt pulses are nonpalpable to left foot. CFT is delayed b/l. Skin temperature is warm to coordinate measuring equipment operator. Dermatological: Nails 1-5 b/l are normal. Webspaces clean and dry 1-4 b/l. Skin appears well hydrated and supple. good color, texture, turgor. No open lesions present. Wound to left 5th metatarsal is now healed. Scattered superficial eschars present to left posterior heel, the largest of which measures 9 mm x 1 mm Musculoskeletal/Orthopaedic: Patient has no pain to palpation of b/l foot ASSESSMENT: (I73.9) PAD (peripheral artery disease) ([facility]) (primary encounter diagnosis) (L97.734) Skin ulcer of left heel, limited to breakdown of skin ([facility]) PLAN: 1. History and physical examination completed today. 2. Reviewed past pvr. Await vascular evaluation by Dr. Velazquez 3. Ulceration of left 5th toe is now healed. Continue with lotion 4. Superficial ulceration to left heel. Today, all nonviable tissue was debrided with tissue nippers thru dermis. Total debridement was 9 mm x 1 mm. Continue with antibiotic cream and open heel shoes. Recommend offloading heels while in bed. 5. F/u in 2 weeks Roberto Vizcaino DPM Patient presents with: Left Foot - Established Patient documented in this encounter [facility] 09-26-2021 History of Present illness Narrative POPULATION HEALTH NAVIGATION OUTREACH Action/FYI Called patient and left voicemail with my direct number Pt identified by name and : NO Outreach Outcome/Action Unable to reach patient: Left message Navigation Signature: Rhianna Chaves Population Health Navigator September 26, 2021 1:43 PM POPULATION HEALTH NAVIGATION OUTREACH Action/FYI: [employer] Care Gaps Discuss/Due: Advance Directives, Dilated Retinal Exam Outcome: Spoke with patients , requested I call back Pt identified by name and : YES, via phone Outreach Outcome/Action Spoke to patient or caregiver: Patient will return the call or ask for return call Reason for Outreach Care Gap or Scheduling/Wellness visits Payer: Payor: T MEDICARE / Plan: AET MEDICARE PPO / Product Type: PPO / Care Gap Reviewed:: Diabetic Eye Exam Reminder: Reminder note to check Health Maintenance for items below Health Maintenance items due: ADVANCE DIRECTIVE DISCUSSION Never done DILATED RETINAL EXAM due on 08/30/2021 Message Sent to Practice: No Navigation Signature: Rhianna Chaves Population Health Navigator September 25, 2021 9:35 AM documented in this encounter [facility] 09-25-2021 Instructions Roberto Vizcaino - 09/25/2021 10:40 AM EDT Continue with neosporin and guaze and tape to left 5th toe and left heel. Avoid pressure on heel while sleeping. documented in this encounter [facility] 09-25-2021 History of Present illness Narrative Follow up podiatric office visit for: Chief Complaint: This 85 year old who presents for follow up:blister of left 5th toe Patient presents to clinic for follow-up blister of left 5th toe. Patient is currently treating the blister with neosporin and gauze and tape. Patient is concerned about the color of the 5th toe. Patient also here for follow-up blister of left heel. PAIN EVALUATION No data found in the last 1 encounters. Hemoglobin A1C (POCT) Date Value Ref Range Status 05/12/2021 6.5 4.2 - 5.6 % Final Comment: Point of care (POC) Hemoglobin A1c (HGBA1C) testing is intended to assess glucose control and provide a management tool for patients known to have diabetes and their healthcare providers. Target HGBA1C levels may depend on specific clinical circumstances. POC HGBA1C is not intended for use as a diagnostic or screening test; laboratory-based testing should be used for diagnostic purposes. The following information is supplemental and may not be applicable to specific diabetes management situations: The POC device chef kitchen manager provides a normal range of 4.2% to 6.5% for the HGBA1C POC test. However, the [employer] guidelines indicate that patients with HGBA1C in the range of 5.7% to 6.4% are at increased risk for development of diabetes and that intervention by lifestyle modification may be beneficial. A HGBA1C level greater than or equal to 6.5% is considered diagnostic of diabetes, pending confirmatory testing. Use of HGBA1C testing to evaluate glucose control may not be appropriate for patients with hemoglobin variants or other conditions (e.g. anemia) that alter red blood cell lifespan. PCP: Perry Olivas MD PAST MEDICAL HISTORY Diagnosis Date Abscess of intestine Acute myocardial infarction, unspecified site, subsequent episode of care x 2 ASHD (arteriosclerotic heart disease) 03/20/2010 Bilateral hearing loss 10/24/2016 Cardiomyopathy, ischemic 05/18/2016 Chronic low back pain with sciatica 05/07/2017 CKD (chronic kidney disease) stage 3, GFR 30-59 ml/min ([facility]) 10/24/2016 DDD (degenerative disc disease), lumbar 10/19/2011 Diabetes mellitus type 2, controlled, without complications (HCC) 07/25/2005 Diverticulitis of colon (without mention of hemorrhage)(562.11) 04/18/2005 Essential hypertension 03/20/2010 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 Clobetasol Propionate (TEMOVATE) 0.05 % external solution Apply 1 application to affected area once daily. rosuvastatin (CRESTOR) 10 mg tablet Take 10 mg by mouth once daily. Dr. Napier, [facility], Lipidology vit A/vit C/vit E/zinc/copper (PRESERVISION AREDS ORAL) Take 1 tablet by mouth twice daily. sertraline (ZOLOFT) 50 mg tablet Take 1 tablet by mouth once daily. folic acid 1 mg tablet Take 1 tablet by mouth once daily. apixaban (ELIQUIS) 2.5 mg tab tab(s) Take 1 tablet by mouth twice daily. furosemide (LASIX) 40 mg tablet Take 2 tablets by mouth every morning AND 1 tablet daily before lunch. sacubitril-valsartan (ENTRESTO) 24-26 mg tablet Take 1 tablet by mouth twice daily. metoprolol succinate ER (TOPROL XL) 25 mg 24 hr tablet Take 1 tablet by mouth once daily. Per Dr. Ibarra. coenzyme Q10 (CO Q-10) 100 mg cap capsule Take 100 mg by mouth once daily. isosorbide mononitrate ER (IMDUR) 60 mg 24 hr tablet Take 60 mg by mouth once daily. nitroglycerin sublingual (NITROSTAT) 0.4 mg SL tablet Dissolve 1 tablet under the tongue as needed for Chest Pain. If no pain relief call 911. Cholecalciferol, Vitamin D3, 2,000 unit cap Take 1 capsule by mouth once daily. aspirin, enteric coated (ADULT LOW DOSE ASPIRIN) 81 mg EC tablet Take 1 tablet by mouth once daily. Jfcyiwwrpktvw-Yrlyhthm-Zswyrm (CENTRUM SILVER) Tab Take 1 tablet by mouth once daily. No current facility-administered medications for this visit. ALLERGIES Allergen Reactions Accupril [Quinapril* Swelling LIPS SWELL ANGIOEDEMA Diovan [Valsartan] Hives hives when [id number] Biaxin [Clarithromy* Intolerance Crestor [Rosuvastat* Intolerance MYALGIA Lipitor [Atorvastat* Intolerance MYALGIA Pravachol [Pravasta* Intolerance MYALGIAS Vytorin 04/09 [Ezet* Intolerance MYALGIAS Zyrtec [Cetirizine * Intolerance MYALGIA Avapro [Irbesartan] Intolerance myalgia Benicar [Olmesartan* Intolerance myalgia Chlorthalidone Other: See Comments muscle aching,leg pain difficulty walk Lovaza [Glasgow-3 Aci* Other: See Comments myalgias but can take fish oil Metoprolol Intolerance myalgia,fatigue, Red Yeast Rice Intolerance elevated ck Zetia [Ezetimibe] Intolerance myalgia PAST SURGICAL HISTORY Procedure Laterality Date COLONOSCOPY 07/14/2003 COLONOSCOPY FLX DX W/COLLJ SPEC WHEN PFRMD 08/27/2013 Colonoscopy CORONARY STENT EA VESSEL 08/01/2017 ALAN mid RCA, balloon angioplasty distal RCA 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 1996. 2002. PAST SURGICAL HISTORY OF 08/2001 Arthroscopy Right Shoulder PAST SURGICAL HISTORY OF 08/08/2004 Right CTR PAST SURGICAL HISTORY OF 08/24/2004 Left CTR STENT - CORONARY 07/04/2017 ALAN x 3 to LAD, ALAN x 1 prox. OM1. (4 stents) Physical Exam: Constitutional: Pt is a well developed 85 year old male who is alert, oriented, cooperative and in no apparent distress. OBJECTIVE: NVSI unchanged from previous visit. Dermatological: Very superficial wound to posterior left heel that measures 1.0 cm x 1 mm x 1 mm. There is no exposed tendon or bone. There are no local signs of infection. Scattered eschars noted to left posterior heel Blister of left lateral 5th metatarsal is essentially healed. Musculoskeletal/Orthopaedic: Patient has no pain to palpation of left foot ASSESSMENT: (I73.9) PAD (peripheral artery disease) ([facility]) (primary encounter diagnosis) (L97.521) Toe ulcer, left, limited to breakdown of skin (HCC) (L97.421) Skin ulcer of left heel, limited to breakdown of skin ([facility]) PLAN: 1. History and physical examination completed today. 2. Discussed pad. Will make referral to Dr. Barb Velazquez 3. Blister of left 5th toe is essentially healed. Continue with neosporin and guaze for an additional few days until completely resolved 4. Small ulceration of posterior left heel. All nonviable tissue debrided thru dermis with tissue nippers. Bleeding present and controlled with pressure. Will have him offload heels while in bed and continue with sandal that avoids rubbing. Treat with topical antibiotic 5. F/u in 2 weeks Roberto Vizcaino DPM AMB ROOMING INTAKE FLOWSHEET DATA Patient presents with: Left Foot - Follow Up, Blister, Itching Patient is with . Presents for follow up of blister of L lateral foot. Also c/o itching to L posterior heel. documented in this encounter [facility] 06-21-2021 Miscellaneous Notes CD report READY FOR MANUFACTURING INTERN AT [facility] [place] [facility] Pt needs to have a disc copy and report of the XR on 11/10/20. Would like to pick pulling machine operator on 06/26/21 documented in this encounter [facility] documented as of this encounter (statuses as of 05/31/2022) [facility] History of Past illness Narrative* Problem Noted Date Resolved Date Toe ulcer, left, limited to breakdown of skin 05/21/2022 Chronic low back pain with sciatica 05/07/2017 05/01/2018 CKD (chronic kidney disease) stage 3, GFR 30-59 ml/min 10/24/2016 11/04/2019 History of TN (myocardial infarction) 05/01/2016 05/01/2018 Unspecified arthropathy, pelvic region and thigh 11/30/2013 04/24/2016 DDD (degenerative disc disease), lumbar 10/19/19 12 10/24/2016 Sciatica 10/19/2011 10/24/2016 Adverse drug effect 12/24/2010 04/29/2017 Polymyalgia rheumatica 04/24/2005 7 Other psoriasis 04/18/2005 04/29/2017 Diverticulitis of colon (without mention of hemo rrhage) 04/18/2005 10/24/2016 documented as of this encounter (statuses as of 06/20/2022) [facility] History of Past illness Narrative* Problem Noted Date Resolved Date Toe ulcer, left, limited to breakdown of skin 05/21/2022 Chronic low back pain with sciatica 05/07/2017 05/01/2018 CKD (chronic kidney disease) stage 3, GFR 30-59 ml/min 10/24/2016 11/04/2019 History of TN (myocardial infarction) 05/01/2016 05/01/2018 Unspecified arthropathy, pelvic region and thigh 11/30/2013 04/24/2016 DDD (degenerative disc disease), lumbar 10/19/19 12 10/24/2016 Sciatica 10/19/2011 10/24/2016 Adverse drug effect 12/24/2010 04/29/2017 Polymyalgia rheumatica 04/24/2005 7 Other psoriasis 04/18/2005 04/29/2017 Diverticulitis of colon (without mention of hemo rrhage) 04/18/2005 10/24/2016 documented as of this encounter (statuses as of 07/25/2022) [facility] History of Past illness Narrative* Problem Noted Date Resolved Date Toe ulcer, left, limited to breakdown of skin 05/21/2022 Chronic low back pain with sciatica 05/07/2017 05/01/2018 CKD (chronic kidney disease) stage 3, GFR 30-59 ml/min 10/24/2016 11/04/2019 History of TN (myocardial infarction) 05/01/2016 05/01/2018 Unspecified arthropathy, pelvic region and thigh 11/30/2013 04/24/2016 DDD (degenerative disc disease), lumbar 10/19/19 12 10/24/2016 Sciatica 10/19/2011 10/24/2016 Adverse drug effect 12/24/2010 04/29/2017 Polymyalgia rheumatica 04/24/2005 7 Other psoriasis 04/18/2005 04/29/2017 Diverticulitis of colon (without mention of hemo rrhage) 04/18/2005 10/24/2016 documented as of this encounter (statuses as of 09/07/2022) [facility] History of Past illness Narrative* Problem Noted Date Resolved Date Toe ulcer, left, limited to breakdown of skin 05/21/2022 Chronic low back pain with sciatica 05/07/2017 05/01/2018 CKD (chronic kidney disease) stage 3, GFR 30-59 ml/min 10/24/2016 11/04/2019 History of TN (myocardial infarction) 05/01/2016 05/01/2018 Unspecified arthropathy, pelvic region and thigh 11/30/2013 04/24/2016 DDD (degenerative disc disease), lumbar 10/19/19 12 10/24/2016 Sciatica 10/19/2011 10/24/2016 Adverse drug effect 12/24/2010 04/29/2017 Polymyalgia rheumatica 04/24/2005 7 Other psoriasis 04/18/2005 04/29/2017 Diverticulitis of colon (without mention of hemo rrhage) 04/18/2005 10/24/2016 documented as of this encounter (statuses as of 09/18/2022) [facility] History of Past illness Narrative* Problem Noted Date Resolved Date Toe ulcer, left, limited to breakdown of skin 05/21/2022 Chronic low back pain with sciatica 05/07/2017 05/01/2018 CKD (chronic kidney disease) stage 3, GFR 30-59 ml/min 10/24/2016 11/04/2019 History of TN (myocardial infarction) 05/01/2016 05/01/2018 Unspecified arthropathy, pelvic region and thigh 11/30/2013 04/24/2016 DDD (degenerative disc disease), lumbar 10/19/19 12 10/24/2016 Sciatica 10/19/2011 10/24/2016 Adverse drug effect 12/24/2010 04/29/2017 Polymyalgia rheumatica 04/24/2005 7 Other psoriasis 04/18/2005 04/29/2017 Diverticulitis of colon (without mention of hemo rrhage) 04/18/2005 10/24/2016 documented as of this encounter (statuses as of 09/21/2022) [facility] History of Past illness Narrative* Problem Noted Date Resolved Date Toe ulcer, left, limited to breakdown of skin 05/21/2022 Chronic low back pain with sciatica 05/07/2017 05/01/2018 CKD (chronic kidney disease) stage 3, GFR 30-59 ml/min 10/24/2016 11/04/2019 History of TN (myocardial infarction) 05/01/2016 05/01/2018 Unspecified arthropathy, pelvic region and thigh 11/30/2013 04/24/2016 DDD (degenerative disc disease), lumbar 10/19/19 12 10/24/2016 Sciatica 10/19/2011 10/24/2016 Adverse drug effect 12/24/2010 04/29/2017 Polymyalgia rheumatica 04/24/2005 7 Other psoriasis 04/18/2005 04/29/2017 Diverticulitis of colon (without mention of hemo rrhage) 04/18/2005 10/24/2016 documented as of this encounter (statuses as of 12/18/2022) [facility] History of Past illness Narrative* Problem Noted Date Resolved Date Toe ulcer, left, limited to breakdown of skin 05/21/2022 Chronic low back pain with sciatica 05/07/2017 05/01/2018 CKD (chronic kidney disease) stage 3, GFR 30-59 ml/min 10/24/2016 11/04/2019 History of TN (myocardial infarction) 05/01/2016 05/01/2018 Unspecified arthropathy, pelvic region and thigh 11/30/2013 04/24/2016 DDD (degenerative disc disease), lumbar 10/19/19 12 10/24/2016 Sciatica 10/19/2011 10/24/2016 Adverse drug effect 12/24/2010 04/29/2017 Polymyalgia rheumatica 04/24/2005 7 Other psoriasis 04/18/2005 04/29/2017 Diverticulitis of colon (without mention of hemo rrhage) 04/18/2005 10/24/2016 documented as of this encounter (statuses as of 12/29/2022) [facility] History of Past illness Narrative* Problem Noted Date Diagnosed Date Resolved Date Toe ulcer, left, limited to breakdown of skin 05/12/2005/21/2022 Chronic low back pain with sciatica 05/07/2017 05/01/2018 CKD (chronic kidney disease) stage 3, GFR 30-59 ml/min 10/24/2016 11/04/2019 History of TN (myocardial infarction) 05/01/2016 05/01/2018 Unspecified arthropathy, pel mike region and thigh 11/30/2013 04/24/2016 DDD (degenerative disc disease), lumbar 10/19/2011 10/24/2016 Sciatica 10/19/2011 10/24/2016 Adverse drug effect 12/24/2010 04/29/20 17 Polymyalgia rheumatica 04/24/200510/24 Other psoriasis 04/18/2005 04/29/2017 Diverticulitis of colon (wit hout mention of hemorrhage) 04/18/2005 10/24/2016 documented as of this encounter (statuses as of 01/29/2023) [facility] History of Past illness Narrative* Problem Noted Date Diagnosed Date Resolved Date Toe ulcer, left, limited to breakdown of skin 05/12/2005/21/2022 Chronic low back pain with sciatica 05/07/2017 05/01/2018 CKD (chronic kidney disease) stage 3, GFR 30-59 ml/min 10/24/2016 11/04/2019 History of TN (myocardial infarction) 05/01/2016 05/01/2018 Unspecified arthropathy, pel mike region and thigh 11/30/2013 04/24/2016 DDD (degenerative disc disease), lumbar 10/19/2011 10/24/2016 Sciatica 10/19/2011 10/24/2016 Adverse drug effect 12/24/2010 04/29/20 17 Polymyalgia rheumatica 04/24/200510/24 Other psoriasis 04/18/2005 04/29/2017 Diverticulitis of colon (wit hout mention of hemorrhage) 04/18/2005 10/24/2016 documented as of this encounter (statuses as of 01/29/2023) [facility] History of Past illness Narrative* Problem Noted Date Diagnosed Date Resolved Date Toe ulcer, left, limited to breakdown of skin 05/12/2005/21/2022 Chronic low back pain with sciatica 05/07/2017 05/01/2018 CKD (chronic kidney disease) stage 3, GFR 30-59 ml/min 10/24/2016 11/04/2019 History of TN (myocardial infarction) 05/01/2016 05/01/2018 Unspecified arthropathy, pel mike region and thigh 11/30/2013 04/24/2016 DDD (degenerative disc disease), lumbar 10/19/2011 10/24/2016 Sciatica 10/19/2011 10/24/2016 Adverse drug effect 12/24/2010 04/29/20 17 Polymyalgia rheumatica 04/24/200510/24 Other psoriasis 04/18/2005 04/29/2017 Diverticulitis of colon (wit hout mention of hemorrhage) 04/18/2005 10/24/2016 documented as of this encounter (statuses as of 02/03/2023) [facility] History of Past illness Narrative* Problem Noted Date Diagnosed Date Resolved Date Toe ulcer, left, limited to breakdown of skin 05/12/2005/21/2022 Chronic low back pain with sciatica 05/07/2017 05/01/2018 CKD (chronic kidney disease) stage 3, GFR 30-59 ml/min 10/24/2016 11/04/2019 History of TN (myocardial infarction) 05/01/2016 05/01/2018 Unspecified arthropathy, pel mike region and thigh 11/30/2013 04/24/2016 DDD (degenerative disc disease), lumbar 10/19/2011 10/24/2016 Sciatica 10/19/2011 10/24/2016 Adverse drug effect 12/24/2010 04/29/20 17 Polymyalgia rheumatica 04/24/200510/24 Other psoriasis 04/18/2005 04/29/2017 Diverticulitis of colon (wit hout mention of hemorrhage) 04/18/2005 10/24/2016 documented as of this encounter (statuses as of 02/06/2023) [facility] History of Past illness Narrative* Problem Noted Date Diagnosed Date Resolved Date Toe ulcer, left, limited to breakdown of skin 05/12/2005/21/2022 Chronic low back pain with sciatica 05/07/2017 05/01/2018 CKD (chronic kidney disease) stage 3, GFR 30-59 ml/min 10/24/2016 11/04/2019 History of TN (myocardial infarction) 05/01/2016 05/01/2018 Unspecified arthropathy, pel mike region and thigh 11/30/2013 04/24/2016 DDD (degenerative disc disease), lumbar 10/19/2011 10/24/2016 Sciatica 10/19/2011 10/24/2016 Adverse drug effect 12/24/2010 04/29/20 17 Polymyalgia rheumatica 04/24/200510/24 Other psoriasis 04/18/2005 04/29/2017 Diverticulitis of colon (wit hout mention of hemorrhage) 04/18/2005 10/24/2016 documented as of this encounter (statuses as of 02/07/2023) [facility] History of Past illness Narrative* Problem Noted Date Diagnosed Date Resolved Date Toe ulcer, left, limited to breakdown of skin 05/12/2005/21/2022 Chronic low back pain with sciatica 05/07/2017 05/01/2018 CKD (chronic kidney disease) stage 3, GFR 30-59 ml/min 10/24/2016 11/04/2019 History of TN (myocardial infarction) 05/01/2016 05/01/2018 Unspecified arthropathy, pel mike region and thigh 11/30/2013 04/24/2016 DDD (degenerative disc disease), lumbar 10/19/2011 10/24/2016 Sciatica 10/19/2011 10/24/2016 Adverse drug effect 12/24/2010 04/29/20 17 Polymyalgia rheumatica 04/24/200510/24 Other psoriasis 04/18/2005 04/29/2017 Diverticulitis of colon (wit hout mention of hemorrhage) 04/18/2005 10/24/2016 documented as of this encounter (statuses as of 02/13/2023) [facility] History of Past illness Narrative* Problem Noted Date Diagnosed Date Resolved Date Toe ulcer, left, limited to breakdown of skin 05/12/2005/21/2022 Chronic low back pain with sciatica 05/07/2017 05/01/2018 CKD (chronic kidney disease) stage 3, GFR 30-59 ml/min 10/24/2016 11/04/2019 History of TN (myocardial infarction) 05/01/2016 05/01/2018 Unspecified arthropathy, pel mike region and thigh 11/30/2013 04/24/2016 DDD (degenerative disc disease), lumbar 10/19/2011 10/24/2016 Sciatica 10/19/2011 10/24/2016 Adverse drug effect 12/24/2010 04/29/20 17 Polymyalgia rheumatica 04/24/200510/24 Other psoriasis 04/18/2005 04/29/2017 Diverticulitis of colon (wit hout mention of hemorrhage) 04/18/2005 10/24/2016 documented as of this encounter (statuses as of 02/21/2023) [facility] History of Past illness Narrative* Problem Noted Date Diagnosed Date Resolved Date Toe ulcer, left, limited to breakdown of skin 05/12/2005/21/2022 Chronic low back pain with sciatica 05/07/2017 05/01/2018 CKD (chronic kidney disease) stage 3, GFR 30-59 ml/min 10/24/2016 11/04/2019 History of TN (myocardial infarction) 05/01/2016 05/01/2018 Unspecified arthropathy, pel mike region and thigh 11/30/2013 04/24/2016 DDD (degenerative disc disease), lumbar 10/19/2011 10/24/2016 Sciatica 10/19/2011 10/24/2016 Adverse drug effect 12/24/2010 04/29/20 17 Polymyalgia rheumatica 04/24/200510/24 Other psoriasis 04/18/2005 04/29/2017 Diverticulitis of colon (wit hout mention of hemorrhage) 04/18/2005 10/24/2016 documented as of this encounter (statuses as of 03/07/2023) [facility] History of Past illness Narrative* Problem Noted Date Diagnosed Date Resolved Date Toe ulcer, left, limited to breakdown of skin 05/12/2005/21/2022 Chronic low back pain with sciatica 05/07/2017 05/01/2018 CKD (chronic kidney disease) stage 3, GFR 30-59 ml/min 10/24/2016 11/04/2019 History of TN (myocardial infarction) 05/01/2016 05/01/2018 Unspecified arthropathy, pel mike region and thigh 11/30/2013 04/24/2016 DDD (degenerative disc disease), lumbar 10/19/2011 10/24/2016 Sciatica 10/19/2011 10/24/2016 Adverse drug effect 12/24/2010 04/29/20 17 Polymyalgia rheumatica 04/24/200510/24 Other psoriasis 04/18/2005 04/29/2017 Diverticulitis of colon (wit hout mention of hemorrhage) 04/18/2005 10/24/2016 documented as of this encounter (statuses as of 03/12/2023) [facility] History of Past illness Narrative* Problem Noted Date Diagnosed Date Resolved Date Toe ulcer, left, limited to breakdown of skin 05/12/2005/21/2022 Chronic low back pain with sciatica 05/07/2017 05/01/2018 CKD (chronic kidney disease) stage 3, GFR 30-59 ml/min 10/24/2016 11/04/2019 History of TN (myocardial infarction) 05/01/2016 05/01/2018 Unspecified arthropathy, pel mike region and thigh 11/30/2013 04/24/2016 DDD (degenerative disc disease), lumbar 10/19/2011 10/24/2016 Sciatica 10/19/2011 10/24/2016 Adverse drug effect 12/24/2010 04/29/20 17 Polymyalgia rheumatica 04/24/200510/24 Other psoriasis 04/18/2005 04/29/2017 Diverticulitis of colon (wit hout mention of hemorrhage) 04/18/2005 10/24/2016 documented as of this encounter (statuses as of 03/22/2023) [facility] History of Past illness Narrative* Problem Noted Date Diagnosed Date Resolved Date Toe ulcer, left, limited to breakdown of skin 05/12/2005/21/2022 Chronic low back pain with sciatica 05/07/2017 05/01/2018 CKD (chronic kidney disease) stage 3, GFR 30-59 ml/min 10/24/2016 11/04/2019 History of TN (myocardial infarction) 05/01/2016 05/01/2018 Unspecified arthropathy, pel mike region and thigh 11/30/2013 04/24/2016 DDD (degenerative disc disease), lumbar 10/19/2011 10/24/2016 Sciatica 10/19/2011 10/24/2016 Adverse drug effect 12/24/2010 04/29/20 17 Polymyalgia rheumatica 04/24/200510/24 Other psoriasis 04/18/2005 04/29/2017 Diverticulitis of colon (wit hout mention of hemorrhage) 04/18/2005 10/24/2016 documented as of this encounter (statuses as of 04/10/2023) [facility] History of Past illness Narrative* Problem Noted Date Diagnosed Date Resolved Date Toe ulcer, left, limited to breakdown of skin 05/12/2005/21/2022 Chronic low back pain with sciatica 05/07/2017 05/01/2018 CKD (chronic kidney disease) stage 3, GFR 30-59 ml/min 10/24/2016 11/04/2019 History of TN (myocardial infarction) 05/01/2016 05/01/2018 Unspecified arthropathy, pel mike region and thigh 11/30/2013 04/24/2016 DDD (degenerative disc disease), lumbar 10/19/2011 10/24/2016 Sciatica 10/19/2011 10/24/2016 Adverse drug effect 12/24/2010 04/29/20 17 Polymyalgia rheumatica 04/24/200510/24 Other psoriasis 04/18/2005 04/29/2017 Diverticulitis of colon (wit hout mention of hemorrhage) 04/18/2005 10/24/2016 documented as of this encounter (statuses as of 04/14/2023) [facility] History of Past illness Narrative* Problem Noted Date Diagnosed Date Resolved Date Toe ulcer, left, limited to breakdown of skin 05/12/2005/21/2022 Chronic low back pain with sciatica 05/07/2017 05/01/2018 CKD (chronic kidney disease) stage 3, GFR 30-59 ml/min 10/24/2016 11/04/2019 History of TN (myocardial infarction) 05/01/2016 05/01/2018 Unspecified arthropathy, pel mike region and thigh 11/30/2013 04/24/2016 DDD (degenerative disc disease), lumbar 10/19/2011 10/24/2016 Sciatica 10/19/2011 10/24/2016 Adverse drug effect 12/24/2010 04/29/20 17 Polymyalgia rheumatica 04/24/200510/24 Other psoriasis 04/18/2005 04/29/2017 Diverticulitis of colon (wit hout mention of hemorrhage) 04/18/2005 10/24/2016 documented as of this encounter (statuses as of 05/01/2023) [facility] of Past illness Narrative* Problem Noted Date Diagnosed Date Resolved Date Toe ulcer, left, limited to breakdown of skin 05/12/2005/21/2022 Chronic low back pain with sciatica 05/07/2017 05/01/2018 CKD (chronic kidney disease) stage 3, GFR 30-59 ml/min 10/24/2016 11/04/2019 History of TN (myocardial infarction) 05/01/2016 05/01/2018 Unspecified arthropathy, pel mike region and thigh 11/30/2013 04/24/2016 DDD (degenerative disc disease), lumbar 10/19/2011 10/24/2016 Sciatica 10/19/2011 10/24/2016 Adverse drug effect 12/24/2010 04/29/20 17 Polymyalgia rheumatica 04/24/200510/24 Other psoriasis 04/18/2005 04/29/2017 Diverticulitis of colon (wit hout mention of hemorrhage) 04/18/2005 10/24/2016 documented as of this encounter (statuses as of 05/04/2023) [facility]11-12-2021 History of Past illness Narrative* Problem Noted Date Diagnosed Date Resolved Date Toe ulcer, left, limited to breakdown of skin 05/12/2005/21/2022 Chronic low back pain with sciatica 05/07/2017 05/01/2018 CKD (chronic kidney disease) stage 3, GFR 30-59 ml/min 10/24/2016 11/04/2019 History of TN (myocardial infarction) 05/01/2016 05/01/2018 Unspecified arthropathy, pel mike region and thigh 11/30/2013 04/24/2016 DDD (degenerative disc disease), lumbar 10/19/2011 10/24/2016 Sciatica 10/19/2011 10/24/2016 Adverse drug effect 12/24/2010 04/29/20 17 Polymyalgia rheumatica 04/24/200510/24 Other psoriasis 04/18/2005 04/29/2017 Diverticulitis of colon (wit hout mention of hemorrhage) 04/18/2005 10/24/2016 documented as of this encounter (statuses as of 05/09/2023) [facility]11-12-2021 History of Past illness Narrative* Problem Noted Date Diagnosed Date Resolved Date Toe ulcer, left, limited to breakdown of skin 05/12/2005/21/2022 Chronic low back pain with sciatica 05/07/2017 05/01/2018 CKD (chronic kidney disease) stage 3, GFR 30-59 ml/min 10/24/2016 11/04/2019 History of TN (myocardial infarction) 05/01/2016 05/01/2018 Unspecified arthropathy, pel mike region and thigh 11/30/2013 04/24/2016 DDD (degenerative disc disease), lumbar 10/19/2011 10/24/2016 Sciatica 10/19/2011 10/24/2016 Adverse drug effect 12/24/2010 04/29/20 17 Polymyalgia rheumatica 04/24/200510/24 Other psoriasis 04/18/2005 04/29/2017 Diverticulitis of colon (wit hout mention of hemorrhage) 04/18/2005 10/24/2016 documented as of this encounter (statuses as of 05/22/2023) [facility]11-04-2021 NoteHNO ID: [id number] Author: Shraad Mars APRN.SE[employer] INSTALLER Service: ? Author Type: Nurse Practitioner Type: Progress Notes Filed: 05/04/2021 8:38 AM Note Text: [facility] General Spine and Pain Phone: Date of Evaluation: 05/04/2021 Patient Name: Marcos Garcia : 1935 Subjective: Patient presents with: Follow Up . Low back pain HPI: Marcos Garcia is a 85 year old male who presents for follow up evaluation Low back pain. Patient has a longstanding history of chronic low back pain. He states his pain is on both sides of his lower back right greater than left. Patient states his pain is worse when he standing and walking for long periods of time. It is better whenever he is sitting. Patient denies any numbness tingling weakness into bilateral lower extremities. Patient is status post MN BB on 03/16/2020 one of his lumbar spine reporting 80% relief for 3 hours. Patient reports he was able to stand and walk longer with no pain. His pain is back to baseline now. Patient denies any new falls or injuries since last office visit. Patient is inquiring about his low back pain today. Pain Assessment: INTAKE PAIN ASSESSMENT 03/24/2021 05/04/2021 Are you having pain associated with your visit today? No Yes, Provider notified Pain Scales - Verbal (Numeric Rating or Visual Analog Scale) Pain Level - 4 Pain Location - Back-Lower Description - Aching Duration Amount of Time - - Duration Units - Years Frequency - Continuous Intervention/Comfort measure - Reposition;Relaxation Comments - - OARRS Report: PDMP website checked and validated. All prescriptions have been APPROPRIATELY filled. No suspicious activity was identified. 05/04/2021 by Sharad Mars APRN.SE[employer]IC TANK INSTALLER Past Medical History: PAST MEDICAL HISTORY Diagnosis Date - Abscess of intestine - Acute myocardial infarction, unspecified site, subsequent episode of care - ASHD (arteriosclerotic heart disease) 03/20/2010 - Bilateral hearing loss 10/24/2016 - Cardiomyopathy, ischemic 05/18/2016 - Chronic low back pain with sciatica 05/07/2017 - CKD (chronic kidney disease) stage 3, GFR 30-59 ml/min ([facility]) 10/24/2016 - DDD (degenerative disc disease), lumbar 10/19/2011 - Diabetes mellitus type 2, controlled, without complications ([facility]) 07/25/2005 - Diverticulitis of colon (without mention of hemorrhage)(562.11) 04/18/2005 - Essential hypertension 03/20/2010 - 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 - Mixed hyperlipidemia 04/18/2005 - Neurogenic claudication due to lumbar spinal stenosis 05/01/2017 - Other psoriasis 04/18/2005 - Paroxysmal atrial fibrillation (HCC) 05/06/2020 - Polymyalgia rheumatica ([facility]) - Primary osteoarthritis involving multiple joints 07/25/2005 - Unspecified hemorrhoids with other complication - VT (ventricular tachycardia) ([facility]) with AICD 07/24/2017 AICD Past Surgical History: PAST SURGICAL HISTORY Procedure Laterality Date - COLONOSCOP W/ OR W/O BRSH SPEC 08/27/2013 Colonoscopy - COLONOSCOPY 07/14/2003 - CORONARY STENT EA VESSEL 08/01/2017 ALAN mid RCA, balloon angioplasty distal RCA - 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 1995. 2002. - PAST SURGICAL HISTORY OF 08/2001 Arthroscopy Right Shoulder - PAST SURGICAL HISTORY OF 08/08/2004 Right CTR - PAST SURGICAL HISTORY OF 08/24/2004 Left CTR - STENT - CORONARY 07/04/2017 ALAN x 3 to LAD, ALAN x 1 prox. OM1. (4 stents) Family History: FAMILY HISTORY Problem Relation Age of Onset - Diabetes Mother - Arthritis Mother - Breast Cancer Sister Social History: Social History Tobacco Use - Smoking status: Former Smoker Packs/day: 0.50 Years: 30.00 Pack years: 15.00 Types: Cigarettes Start date: 07/01/1957 Quit date: 07/01/1979 Years since quittin.8 - Smokeless tobacco: Never Used Substance Use Topics - Alcohol use: Yes Comment: rare wine. - Drug use: No Allergies: ALLERGIES Allergen Reactions - Accupril [Quinapril* Swelling LIPS SWELL ANGIOEDEMA - Diovan [Valsartan] Hives hives when [id number] - Biaxin [Clarithromy* Intolerance - Crestor [Rosuvastat* Intolerance MYALGIA - Lipitor [Atorvastat* Intolerance MYALGIA - Pravachol [Pravasta* Intolerance MYALGIAS - Vytorin 04/09 [Ezet* Intolerance MYALGIAS - Zyrtec [Cetirizine * Intolerance MYALGIA - Avapro [Irbesartan] Intolerance myalgia - Benicar [Olmesartan* Intolerance myalgia - Chlorthalidone Other: See Comments muscle aching,leg pain difficulty walk - Lovaza [Glasgow-3 Aci* Other: See Comments myalgias but can take fish oil - Metoprolol Intolerance myalgia,fatigue, - Red Yeast Rice Intolerance elevated ck - Zetia [Ezetimibe] Intolerance myalgia Current Medications: vit A/vit C/vit E/zinc/copper (PRESERVISION AREDS ORAL) Take 1 tablet by mouth twice d (more content not included)...[facility] 05-04-2021 NoteHNO ID: [id number] Author: Jade Reina Service: ? Author Type: ? Type: Progress Notes Filed: 05/04/2021 8:38 AM Note Text: Review of Systems Constitutional: Negative for activity change, chills, fever and unexpected weight change. Gastrointestinal: Negative for bowel retention or incontinence Genitourinary: Negative for difficulty urinating. Negative for bladder retention or incontinence Musculoskeletal: Positive for back pain and gait problem. Negative for arthralgias, joint swelling, myalgias, neck pain and neck stiffness. Neurological: Negative for weakness, numbness and headaches. Psychiatric/Behavioral: Positive for sleep disturbance. Negative for dysphoric mood and suicidal ideas. The patient is not nervous/anxious.[facility]09-16-2021 NoteHNO ID: [id number] Author: Aissatou Stone MD Service: ? Author Type: Physician Type: Procedures Filed: 03/16/2021 3:07 PM Note Text: PROCEDURE: DIAGNOSTIC BILATERAL L3-L4,L4-L5,L5-S1 FACET MEDIAL BRANCH BLOCKS DIAGNOSIS: Lumbar spondylosis (primary encounter diagnosis) DESCRIPTION OF PROCEDURE: The patient was brought to the [facility] procedure room and placed in the prone position onto the fluoroscopy table. The lumbosacral area was prepped and draped in the usual sterile fashion using Chloroprep and a fenestrated drape. The fluoroscope was brought into the field and a AP image was obtained to identify the target vertebral bodies. The skin overlying the proposed needle entry site at the level of sacral ala were marked. The skin and subcutaneous tissues overlying the proposed needle entry sites were anesthetized with 10 ml of 2% lidocaine. A 25-gauge 3.5-inch spinal needle was placed through the skin and advanced coaxially towards the base of the transverse process where it joins the superior articular process until the needle tip touched bone. Correct final needle position was confirmed with AP fluoroscopic imaging. A solution containing a total of 7ml of 0.5% bupivacaine with 40 mg of methylprednisolone was made and injected in divided doses at 8 sites following negative aspiration for heme, CSF, or air. After completion of the injection, the needles were removed. The injection sites were cleaned and dried. A sterile dressing was applied. The procedure was completed without complications and was tolerated well. The patient was monitored after the procedure. The patient (or responsible green party) was given post-procedure and discharge instructions to follow at home. The patient was discharged in stable condition. A follow up appointment was made. Please see the nursing note for exact times (time out, procedure start, procedure end).[facility]09-16-2021 NoteHNO ID: [id number] Author: Aissatou Stone MD Service: ? Author Type: Physician Type: Progress Notes Filed: 03/16/2021 3:07 PM Note Text: [facility] HPI Marcos Garcia is a 85 year old male who presents with pain here for BL LMBBs. Review of Systems Per nursing documentation PAST MEDICAL HISTORY Diagnosis Date - Abscess of intestine - Acute myocardial infarction, unspecified site, subsequent episode of care - ASHD (arteriosclerotic heart disease) 03/20/2010 - Bilateral hearing loss 10/24/2016 - Cardiomyopathy, ischemic 05/18/2016 - Chronic low back pain with sciatica 05/07/2017 - CKD (chronic kidney disease) stage 3, GFR 30-59 ml/min ([facility]) 10/24/2016 - DDD (degenerative disc disease), lumbar 10/19/2011 - Diabetes mellitus type 2, controlled, without complications ([facility]) 07/25/2005 - Diverticulitis of colon (without mention of hemorrhage)(562.11) 04/18/2005 - Essential hypertension 03/20/2010 - 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 - Mixed hyperlipidemia 04/18/2005 - Neurogenic claudication due to lumbar spinal stenosis 05/01/2017 - Other psoriasis 04/18/2005 - Paroxysmal atrial fibrillation (HCC) 05/06/2020 - Polymyalgia rheumatica (HCC) - Primary osteoarthritis involving multiple joints 07/25/2005 - Unspecified hemorrhoids with other complication - VT (ventricular tachycardia) (HCC) with AICD 07/24/2017 AICD PAST SURGICAL HISTORY Procedure Laterality Date - COLONOSCOP W/ OR W/O BRSH SPEC 08/27/2013 Colonoscopy - COLONOSCOPY 07/14/2003 - CORONARY STENT EA VESSEL 08/01/2017 ALAN mid RCA, balloon angioplasty distal RCA - 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 1996. 2002. - PAST SURGICAL HISTORY OF 08/2001 Arthroscopy Right Shoulder - PAST SURGICAL HISTORY OF 08/08/2004 Right CTR - PAST SURGICAL HISTORY OF 08/24/2004 Left CTR - STENT - CORONARY 07/04/2017 ALAN x 3 to LAD, ALAN x 1 prox. OM1. (4 stents) FAMILY HISTORY Problem Relation Age of Onset - Diabetes Mother - Arthritis Mother - Breast Cancer Sister Social History Tobacco Use - Smoking status: Former Smoker Packs/day: 0.50 Years: 30.00 Pack years: 15.00 Types: Cigarettes Start date: 07/01/1957 Quit date: 07/01/1979 Years since quittin.7 - Smokeless tobacco: Never Used Substance Use Topics - Alcohol use: Yes Comment: rare wine. - Drug use: No Current Outpatient Medications on File Prior to Visit Medication Sig - sertraline (ZOLOFT) 50 mg tablet Take 1 tablet by mouth once daily. - folic acid 1 mg tablet Take 1 tablet by mouth once daily. - rosuvastatin (CRESTOR) 5 mg tablet Take 5 mg by mouth once daily. Dr. Milks. BOYKIN, Cardiology/Lipidology. Take 1.5 tablet once daily. - apixaban (ELIQUIS) 2.5 mg tab tab(s) Take 1 tablet by mouth twice daily. - furosemide (LASIX) 40 mg tablet Take 2 tablets by mouth every morning AND 1 tablet daily before lunch. - sacubitril-valsartan (ENTRESTO) 24-26 mg tablet Take 1 tablet by mouth twice daily. - metoprolol succinate ER (TOPROL XL) 25 mg 24 hr tablet Take 1 tablet by mouth once daily. Per Dr. Ibarra. - coenzyme Q10 (CO Q-10) 100 mg cap capsule Take 100 mg by mouth once daily. - isosorbide mononitrate ER (IMDUR) 60 mg 24 hr tablet Take 60 mg by mouth once daily. - TURMERIC ORAL Take 2 capsules by mouth once daily. - nitroglycerin sublingual (NITROSTAT) 0.4 mg SL tablet Dissolve 1 tablet under the tongue as needed for Chest Pain. If no pain relief call 911. - Cholecalciferol, Vitamin D3, 2,000 unit cap Take 1 capsule by mouth once daily. - aspirin, enteric coated (ADULT LOW DOSE ASPIRIN) 81 mg EC tablet Take 1 tablet by mouth once daily. - Dznwzbqskrkvk-Khcidgph-Zvxwfi (CENTRUM SILVER) Tab Take 1 tablet by mouth once daily. No current facility-administered medications on file prior to visit. Attestation Information obtained by others were confirmed and edited as necessary on 03/16/2021 by Aissatou Stone MD. Objective Exam: BP 125/73 Pulse 70 Resp 18 Ht 5' 9 (1.75m) Wt 207 lb (93.9kg) SpO2 95% BMI 30.55 kg/(m2). Constitutional: normal appearance, AANDO x3 Head: atraumatic, normocephalic Eyes: conjunctiva clear. Cardiovascular: appears well-perfused Pulmonary: non-labored Abdominal: non-distended Skin: no visible rashes or ecchymosis Psychiatric: mood appropriate Neurological: no focal deficits Assessment and Plan: We discussed their current plan and the pathology responsible for the patient's pain. Specific counseling related to the procedure was provided regarding the risks, benefits and alternatives. The patient wishes to proceed with the plan as follows: Encounter Diagnosis ICD-10-CM 1. Lumbar spondylosis M47.816 NJX DX/THER AGT PVRT FACET JT LMBR/SAC 1 LEVEL NJX DX/THER AGT PVRT FACET JT LMBR/SAC 2ND LEVEL NJX D (more content not included)...[facility]09-16-2021 Note HNO ID: [id number] Author: Vera Arredondo LPN Service: ? Author Type: LICENSED NURSE Type: Progress Notes Filed: 03/16/2021 3:07 PM Note Text: Subjective HPI Review of Systems Eyes: Negative for blurred vision and double vision. Respiratory: Positive for shortness of breath. Cardiovascular: Negative for chest pain and leg swelling. Gastrointestinal: Negative for constipation, diarrhea, nausea and vomiting. Genitourinary: Negative for dysuria. Skin: Negative for itching. Neurological: Negative for dizziness, tingling, weakness and headaches. Endo/Heme/Allergies: Bruises/bleeds easily. Psychiatric/Behavioral: Negative for depression and suicidal ideas. The patient is not nervous/anxious. PAST MEDICAL HISTORY Diagnosis Date - Abscess of intestine - Acute myocardial infarction, unspecified site, subsequent episode of care - ASHD (arteriosclerotic heart disease) 03/20/2010 - Bilateral hearing loss 10/24/2016 - Cardiomyopathy, ischemic 05/18/2016 - Chronic low back pain with sciatica 05/07/2017 - CKD (chronic kidney disease) stage 3, GFR 30-59 ml/min ([facility]) 10/24/2016 - DDD (degenerative disc disease), lumbar 10/19/2011 - Diabetes mellitus type 2, controlled, without complications ([facility]) 07/25/2005 - Diverticulitis of colon (without mention of hemorrhage)(562.11) 04/18/2005 - Essential hypertension 03/20/2010 - 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 - Mixed hyperlipidemia 04/18/2005 - Neurogenic claudication due to lumbar spinal stenosis 05/01/2017 - Other psoriasis 04/18/2005 - Paroxysmal atrial fibrillation ([facility]) 05/06/2020 - Polymyalgia rheumatica ([facility]) - Primary osteoarthritis involving multiple joints 07/25/2005 - Unspecified hemorrhoids with other complication - VT (ventricular tachycardia) ([facility]) with AICD 07/24/2017 AICD PAST SURGICAL HISTORY Procedure Laterality Date - COLONOSCOP W/ OR W/O BRSH SPEC 08/27/2013 Colonoscopy - COLONOSCOPY 07/14/2003 - CORONARY STENT EA VESSEL 08/01/2017 ALAN mid RCA, balloon angioplasty distal RCA - 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 1995. 2002. - PAST SURGICAL HISTORY OF 08/2001 Arthroscopy Right Shoulder - PAST SURGICAL HISTORY OF 08/08/2004 Right CTR - PAST SURGICAL HISTORY OF 08/24/2004 Left CTR - STENT - CORONARY 07/04/2017 ALAN x 3 to LAD, ALAN x 1 prox. OM1. (4 stents) FAMILY HISTORY Problem Relation Age of Onset - Diabetes Mother - Arthritis Mother - Breast Cancer Sister Social History Tobacco Use - Smoking status: Former Smoker Packs/day: 0.50 Years: 30.00 Pack years: 15.00 Types: Cigarettes Start date: 07/01/1957 Quit date: 07/01/1979 Years since quittin.7 - Smokeless tobacco: Never Used Substance Use Topics - Alcohol use: Yes Comment: rare wine. - Drug use: No Current Meds sertraline (ZOLOFT) 50 mg tablet Take 1 tablet by mouth once daily. folic acid 1 mg tablet Take 1 tablet by mouth once daily. rosuvastatin (CRESTOR) 5 mg tablet Take 5 mg by mouth once daily. Dr. Napier. LUCRETIA, Cardiology/Lipidology. Take 1.5 tablet once daily. apixaban (ELIQUIS) 2.5 mg tab tab(s) Take 1 tablet by mouth twice daily. furosemide (LASIX) 40 mg tablet Take 2 tablets by mouth every morning AND 1 tablet daily before lunch. sacubitril-valsartan (ENTRESTO) 24-26 mg tablet Take 1 tablet by mouth twice daily. metoprolol succinate ER (TOPROL XL) 25 mg 24 hr tablet Take 1 tablet by mouth once daily. Per Dr. Ibarra. coenzyme Q10 (CO Q-10) 100 mg cap capsule Take 100 mg by mouth once daily. isosorbide mononitrate ER (IMDUR) 60 mg 24 hr tablet Take 60 mg by mouth once daily. TURMERIC ORAL Take 2 capsules by mouth once daily. nitroglycerin sublingual (NITROSTAT) 0.4 mg SL tablet Dissolve 1 tablet under the tongue as needed for Chest Pain. If no pain relief call 911. Cholecalciferol, Vitamin D3, 2,000 unit cap Take 1 capsule by mouth once daily. aspirin, enteric coated (ADULT LOW DOSE ASPIRIN) 81 mg EC tablet Take 1 tablet by mouth once daily. Jxmltdrgsnsjm-Botoygor-Nwtfmc (CENTRUM SILVER) Tab Take 1 tablet by mouth once daily. Objective Ht 175.3 cm (5' 9 ) Wt 93.9 kg (207 lb) BMI 30.57 kg/m? [facility] NoteProcedure (AGSPINE3) MAROCS GARCIA ([id number]) 1935 M Date Time Provider Department 03/16/21 8:40 AM AISSATOU STONE3 During your visit today, we recorded the following information about you: Pulse Respiration Blood pressure Weight 70/minute 18/minute 125/73 93.9 kg Height 1.753 m Vera Arredondo LPN 03/16/2021 8:45 AM Signed PROCEDURE DISCHARGE INSTRUCTIONS 03/16/2021 Marcos Zafar Dosuzan 1935 Physician: Aissatou Stone MD Procedure: Facet Joint Injection/Medial Branch Block Post Procedure Instructions: If sedation not given, no driving for 3 hours after the procedure., If sedation given, no driving the day of the procedure., Perform activities that typically make you have pain and monitor your pain level during these activities for the next 3-4 hours., You may resume normal activities the day after the procedure, as tolerated., Pain should gradually subside over the next 2-3 weeks., Apply cold compresses to injection site if needed., If medically acceptable, take over the counter anti-inflammatories such as ibuprofen or Aleve if needed for post procedure discomfort., No hot baths, hot tubs or hot compresses for 24 hours. and Increased pain the day after the procedure may occur. If you have any of the following signs or symptoms, please call our office at - Fever and/or chills - Swelling and/or drainage from injection site - New pain that is different than your normal pain (other than soreness at the site of the procedure) - Stiff neck - Shortness of breath - Severe increase in pain - Motor dysfunctions, such as difficulty walking, bowel or bladder dysfunction and/or incontinence - Headache that is severe, light sensitive or develops when changing positions (positional headache) - Nausea and/or vomiting accompanied by headache that started 24-48 hours after the procedure If you have any emergent concerns, please call 911 or go to your local emergency room. Please also contact our office to let us know you will be seeking emergency care and why. Vera Arredondo LPN 03/16/2021 8:54 AM Signed Are you on a blood thinner: 81mg ASA, Eliquis If yes, is a hold required: no Last dose of blood thinner: 03/16/21 INR Result today: n/a Do you require a Lovenox bridge:n/a Are you a diabetic:no Are you/or could you be : n/a Are you taking Xanax for the procedure: no Are you currently on a steroid? no Are you currently on an antibiotic: no Have you had a COVID-19 vaccine in the last 14 days Or are you scheduled to receive one? no Audit Partner's Name: Robbie Garcia VERA DAVE ARREDONDO March 16, 2021 8:49 AM Vera DAVE Arredondo 03/16/2021 3:07 PM Signed Subjective HPI Review of Systems Eyes: Negative for blurred vision and double vision. Respiratory: Positive for shortness of breath. Cardiovascular: Negative for chest pain and leg swelling. Gastrointestinal: Negative for constipation, diarrhea, nausea and vomiting. Genitourinary: Negative for dysuria. Skin: Negative for itching. Neurological: Negative for dizziness, tingling, weakness and headaches. Endo/Heme/Allergies: Bruises/bleeds easily. Psychiatric/Behavioral: Negative for depression and suicidal ideas. The patient is not nervous/anxious. PAST MEDICAL HISTORY Diagnosis Date - Abscess of intestine - Acute myocardial infarction, unspecified site, subsequent episode of care - ASHD (arteriosclerotic heart disease) 03/20/2010 - Bilateral hearing loss 10/24/2016 - Cardiomyopathy, ischemic 05/18/2016 - Chronic low back pain with sciatica 05/07/2017 - CKD (chronic kidney disease) stage 3, GFR 30-59 ml/min ([facility]) 10/24/2016 - DDD (degenerative disc disease), lumbar 10/19/2011 - Diabetes mellitus type 2, controlled, without complications ([facility]) 07/25/2005 - Diverticulitis of colon (without mention of hemorrhage)(562.11) 04/18/2005 - Essential hypertension 03/20/2010 - 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 - Mixed hyperlipidemia 04/18/2005 - Neurogenic claudication due to lumbar spinal stenosis 05/01/2017 - Other psoriasis 04/18/2005 - Paroxysmal atrial fibrillation (HCC) 05/06/2020 - Polymyalgia rheumatica ([facility]) - Primary osteoarthritis involving multiple joints 07/25/2005 - Unspecified hemorrhoids with other complication - VT (ventricular tachycardia) ([facility]) with AICD 07/24/2017 AICD PAST SURGICAL HISTORY Procedure Laterality Date - COLONOSCOP W/ OR W/O BRSH SPEC 08/27/2013 Colonoscopy - COLONOSCOPY 07/14/2003 - CORONARY STENT EA VESSEL 08/01/2017 ALAN mid RCA, balloon angioplasty distal RCA - 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 1995. 2002. - PAST SURGICAL HISTORY OF 08/2001 Arthroscopy Right Shoulder - PAST SURGICAL HISTORY OF 08/08/2004 Right CTR - PAST SURGIC (more content not included)...[facility] 02-02-2021 NoteHNO ID: [id number] Author: Sandro Burleson APRN.SE[employer]IC TANK INSTALLER Service: ? Author Type: Nurse Practitioner Type: Progress Notes Filed: 02/02/2021 12:46 PM Note Text: Subjective Patient here for right knee injection with steroid. The history is provided by the patient. Back Pain This is a chronic problem. The current episode started more than 1 week ago. The problem occurs constantly. The problem has been rapidly improving. The pain is present in the lumbar spine. The quality of the pain is described as stabbing and aching. The pain is at a severity of 7/10. The pain is moderate. Pertinent negatives include no chest pain, no headaches, no dysuria, no tingling and no weakness. Treatments tried: 90% improvement after MBB of lumbar spine. The treatment provided significant relief. Right injury: No Right condition: Chronic Right severity: Severe Right progression: Stable Patient reports that right knee feels stable. Patient reports feeling right knee locking, popping and catching. Right job related: No Right aggravating factors: Prolonged sitting, prolonged standing, change in inclines and regular daily ambulation. Right alleviating factors: Ice, shifting weight and NSAIDs. Patient reports significant improvement after injection of steroid of knee. --Medial branch block provided 90% relief for 4 to 5 hours after injection Review of Systems Eyes: Negative for blurred vision and double vision. Respiratory: Positive for shortness of breath. Cardiovascular: Negative for chest pain and leg swelling. Gastrointestinal: Negative for constipation, diarrhea, nausea and vomiting. Genitourinary: Negative for dysuria. Musculoskeletal: Positive for back pain. Skin: Negative for itching. Neurological: Negative for dizziness, tingling, weakness and headaches. Endo/Heme/Allergies: Does not bruise/bleed easily. Psychiatric/Behavioral: Negative for depression and suicidal ideas. The patient is not nervous/anxious. PAST MEDICAL HISTORY Diagnosis Date - Abscess of intestine - Acute myocardial infarction, unspecified site, subsequent episode of care - ASHD (arteriosclerotic heart disease) 03/20/2010 - Bilateral hearing loss 10/24/2016 - Cardiomyopathy, ischemic 05/18/2016 - Chronic low back pain with sciatica 05/07/2017 - CKD (chronic kidney disease) stage 3, GFR 30-59 ml/min ([facility]) 10/24/2016 - DDD (degenerative disc disease), lumbar 10/19/2011 - Diabetes mellitus type 2, controlled, without complications ([facility]) 07/25/2005 - Diverticulitis of colon (without mention of hemorrhage)(562.11) 04/18/2005 - Essential hypertension 03/20/2010 - 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 - Mixed hyperlipidemia 04/18/2005 - Neurogenic claudication due to lumbar spinal stenosis 05/01/2017 - Other psoriasis 04/18/2005 - Paroxysmal atrial fibrillation ([facility]) 05/06/2020 - Polymyalgia rheumatica ([facility]) - Primary osteoarthritis involving multiple joints 07/25/2005 - Unspecified hemorrhoids with other complication - VT (ventricular tachycardia) ([facility]) with AICD 07/24/2017 AICD PAST SURGICAL HISTORY Procedure Laterality Date - COLONOSCOP W/ OR W/O BRSH SPEC 08/27/2013 Colonoscopy - COLONOSCOPY 07/14/2003 - CORONARY STENT EA VESSEL 08/01/2017 ALAN mid RCA, balloon angioplasty distal RCA - 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 1995. 2002. - PAST SURGICAL HISTORY OF 08/2001 Arthroscopy Right Shoulder - PAST SURGICAL HISTORY OF 08/08/2004 Right CTR - PAST SURGICAL HISTORY OF 08/24/2004 Left CTR - STENT - CORONARY 07/04/2017 ALAN x 3 to LAD, ALAN x 1 prox. OM1. (4 stents) FAMILY HISTORY Problem Relation Age of Onset - Diabetes Mother - Arthritis Mother - Breast Cancer Sister Social History Tobacco Use - Smoking status: Former Smoker Packs/day: 0.50 Years: 30.00 Pack years: 15.00 Types: Cigarettes Start date: 07/01/1957 Quit date: 07/01/1979 Years since quittin.6 - Smokeless tobacco: Never Used Substance Use Topics - Alcohol use: Yes Comment: rare wine. - Drug use: No Current Meds sertraline (ZOLOFT) 50 mg tablet Take 1 tablet by mouth once daily. folic acid 1 mg tablet Take 1 tablet by mouth once daily. rosuvastatin (CRESTOR) 5 mg tablet Take 5 mg by mouth once daily. Dr. Napier. LUCRETIA, Cardiology/Lipidology. Take 1.5 tablet once daily. apixaban (ELIQUIS) 2.5 mg tab tab(s) Take 1 tablet by mouth twice daily. furosemide (LASIX) 40 mg tablet Take 2 tablets by mouth every morning AND 1 tablet daily before lunch. sacubitril-valsartan (ENTRESTO) 24-26 mg tablet Take 1 tablet by mouth twice daily. metoprolol succinate ER (TOPROL XL) 25 mg 24 hr tablet Take 1 tablet by mouth once daily. Per Dr. Ibarra. coenzyme Q10 (CO Q-10) 100 mg cap capsule Take 100 mg by mouth once daily. isosorbide mononitrate ER (IMDUR) 60 mg 24 hr tablet Take 60 mg by mouth once daily. TURMER (more content not included)...[facility]07-21-2021 Note HNO ID: [id number] Author: Sandro Burleson APRN.[facility] Service: ? Author Type: Nurse Practitioner Type: Procedures Filed: 01/18/2021 10:12 AM Note Text: HANDP Review: The HANDP completed on 01/18/21 I have reviewed the history and physical and examined the patient and there are no changes unless noted below: No update and/or changes to Marcos Garcia history and physical. Sandro Burleson APRN.[employer] PROCEDURE: Steroid injection of the right knee using anatomic landmarks of the knee. PROCEDURAL PAUSE: A procedural pause was conducted to verify: correct patient identity, procedure to be performed and as applicable, correct side and site, and correct patient position. INFORMED CONSENT: I discussed the risks, possible benefits, and alternatives to injection. Following denial of allergy and review of potential side effects and complications (including but not necessarily limited to infection, allergic reaction, local tissue breakdown, systemic effects of corticosteroids, elevation of blood glucose, injury to soft tissue and/or nerves and seizure), all questions were answered and consent was given to proceed. Patient verbalized understanding. PROCEDURE DETAILS: Prior to the procedure, the right knee complaint was assessed and his knee was re-examined. The patella, patellar tendon, the tibial tuberosity, and tibial plateau were palpated and the injection site was identified. Following this, the skin was marked and the right knee was prepared with a cholraprep scrubs and alcohol. a 2-inch 25-gauge needle was advanced into the Anteromedial aspect and into the joint capsule of the knee joint space. After negative aspiration for blood, a mixture of 3ml of bupivacaine and 1 ml of depo-medrol (40 mg/ml) was injected into the right knee, 0 ml was wasted. Following the procedure, the patient reported pain intensity of 3 The patient tolerated the procedure without complication and was discharged in good condition after a short observation period. The patient was instructed to contact me with regard to any questions pertaining to the injection and to inform me of the results in a period of approximately two weeks. If efficacious, the procedure could be repeated in 3-6 months or later, if needed. DIAGNOSIS: #1 Successful steroid injection of the right knee without immediate complication.[facility]07-21-2021 NoteHNO ID: [id number] Author: Sandro Burleson APRN.[facility] Service: ? Author Type: Nurse Practitioner Type: Progress Notes Filed: 01/18/2021 10:12 AM Note Text: Subjective Patient here for right knee injection with steroid. The history is provided by the patient. Back Pain This is a chronic problem. The current episode started more than 1 week ago. The problem occurs constantly. The problem has been rapidly improving. The pain is present in the lumbar spine. The quality of the pain is described as stabbing and aching. The pain is at a severity of 7/10. The pain is moderate. Pertinent negatives include no chest pain, no headaches, no dysuria, no tingling and no weakness. Treatments tried: 90% improvement after MBB of lumbar spine. The treatment provided significant relief. Right injury: No Right condition: Chronic Right severity: Severe Right progression: Stable Patient reports that right knee feels stable. Patient reports feeling right knee locking, popping and catching. Right job related: No Right aggravating factors: Prolonged sitting, prolonged standing, change in inclines and regular daily ambulation. Right alleviating factors: Ice, shifting weight and NSAIDs. Review of Systems Eyes: Negative for blurred vision. Respiratory: Positive for shortness of breath. Cardiovascular: Negative for chest pain and leg swelling. Gastrointestinal: Negative for constipation, diarrhea, nausea and vomiting. Genitourinary: Negative for dysuria. Musculoskeletal: Positive for back pain. Skin: Negative for itching. Neurological: Negative for dizziness, tingling, weakness and headaches. Endo/Heme/Allergies: Does not bruise/bleed easily. Psychiatric/Behavioral: Negative for depression and suicidal ideas. PAST MEDICAL HISTORY Diagnosis Date - Abscess of intestine - Acute myocardial infarction, unspecified site, subsequent episode of care - ASHD (arteriosclerotic heart disease) 03/20/2010 - Bilateral hearing loss 10/24/2016 - Cardiomyopathy, ischemic 05/18/2016 - Chronic low back pain with sciatica 05/07/2017 - CKD (chronic kidney disease) stage 3, GFR 30-59 ml/min ([facility]) 10/24/2016 - DDD (degenerative disc disease), lumbar 10/19/2011 - Diabetes mellitus type 2, controlled, without complications ([facility]) 07/25/2005 - Diverticulitis of colon (without mention of hemorrhage)(562.11) 04/18/2005 - Essential hypertension 03/20/2010 - 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 - Mixed hyperlipidemia 04/18/2005 - Neurogenic claudication due to lumbar spinal stenosis 05/01/2017 - Other psoriasis 04/18/2005 - Paroxysmal atrial fibrillation (HCC) 05/06/2020 - Polymyalgia rheumatica ([facility]) - Primary osteoarthritis involving multiple joints 07/25/2005 - Unspecified hemorrhoids with other complication - VT (ventricular tachycardia) ([facility]) with AICD 07/24/2017 AICD PAST SURGICAL HISTORY Procedure Laterality Date - COLONOSCOP W/ OR W/O BRSH SPEC 08/27/2013 Colonoscopy - COLONOSCOPY 07/14/2003 - CORONARY STENT EA VESSEL 08/01/2017 ALAN mid RCA, balloon angioplasty distal RCA - 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 2002. - PAST SURGICAL HISTORY OF 08/2001 Arthroscopy Right Shoulder - PAST SURGICAL HISTORY OF 08/08/2004 Right CTR - PAST SURGICAL HISTORY OF 08/24/2004 Left CTR - STENT - CORONARY 07/04/2017 ALAN x 3 to LAD, ALAN x 1 prox. OM1. (4 stents) FAMILY HISTORY Problem Relation Age of Onset - Diabetes Mother - Arthritis Mother - Breast Cancer Sister Social History Tobacco Use - Smoking status: Former Smoker Packs/day: 0.50 Years: 30.00 Pack years: 15.00 Types: Cigarettes Start date: 07/01/1957 Quit date: 07/01/1979 Years since quittin.5 - Smokeless tobacco: Never Used Substance Use Topics - Alcohol use: Yes Comment: rare wine. - Drug use: No Current Meds sertraline (ZOLOFT) 50 mg tablet Take 1 tablet by mouth once daily. folic acid 1 mg tablet Take 1 tablet by mouth once daily. rosuvastatin (CRESTOR) 5 mg tablet Take 5 mg by mouth once daily. Dr. Milks. BOYKIN, Cardiology/Lipidology. Take 1.5 tablet once daily. apixaban (ELIQUIS) 2.5 mg tab tab(s) Take 1 tablet by mouth twice daily. furosemide (LASIX) 40 mg tablet Take 2 tablets by mouth every morning AND 1 tablet daily before lunch. sacubitril-valsartan (ENTRESTO) 24-26 mg tablet Take 1 tablet by mouth twice daily. metoprolol succinate ER (TOPROL XL) 25 mg 24 hr tablet Take 1 tablet by mouth once daily. Per Dr. Ibarra. coenzyme Q10 (CO Q-10) 100 mg cap capsule Take 100 mg by mouth once daily. isosorbide mononitrate ER (IMDUR) 60 mg 24 hr tablet Take 60 mg by mouth once daily. TURMERIC ORAL Take 2 capsules by mouth once daily. nitroglycerin sublingual (NITROSTAT) 0.4 mg SL tablet Dissolve 1 tablet under the tongue as needed for Chest Pain. If no pain relief call 911. Cholecalciferol, V (more content not included)...[facility] 01-18-2021 NoteProcedure (AGSPHWG) DOSUZANMARCOS L ([id number]) 1935 M Date Time Provider Department 01/18/21 9:30 AM SANDRO BURLESON [facility] During your visit today, we recorded the following information about you: Temperature Weight Height 97.6 degrees 86.2 kg 1.753 m Sandro Burleson APRN.[facility] 01/18/2021 10:12 AM Signed Subjective Patient here for right knee injection with steroid. The history is provided by the patient. Back Pain This is a chronic problem. The current episode started more than 1 week ago. The problem occurs constantly. The problem has been rapidly improving. The pain is present in the lumbar spine. The quality of the pain is described as stabbing and aching. The pain is at a severity of 7/10. The pain is moderate. Pertinent negatives include no chest pain, no headaches, no dysuria, no tingling and no weakness. Treatments tried: 90% improvement after MBB of lumbar spine. The treatment provided significant relief. Right injury: No Right condition: Chronic Right severity: Severe Right progression: Stable Patient reports that right knee feels stable. Patient reports feeling right knee locking, popping and catching. Right job related: No Right aggravating factors: Prolonged sitting, prolonged standing, change in inclines and regular daily ambulation. Right alleviating factors: Ice, shifting weight and NSAIDs. Review of Systems Eyes: Negative for blurred vision. Respiratory: Positive for shortness of breath. Cardiovascular: Negative for chest pain and leg swelling. Gastrointestinal: Negative for constipation, diarrhea, nausea and vomiting. Genitourinary: Negative for dysuria. Musculoskeletal: Positive for back pain. Skin: Negative for itching. Neurological: Negative for dizziness, tingling, weakness and headaches. Endo/Heme/Allergies: Does not bruise/bleed easily. Psychiatric/Behavioral: Negative for depression and suicidal ideas. PAST MEDICAL HISTORY Diagnosis Date - Abscess of intestine - Acute myocardial infarction, unspecified site, subsequent episode of care - ASHD (arteriosclerotic heart disease) 03/20/2010 - Bilateral hearing loss 10/24/2016 - Cardiomyopathy, ischemic 05/18/2016 - Chronic low back pain with sciatica 05/07/2017 - CKD (chronic kidney disease) stage 3, GFR 30-59 ml/min ([facility]) 10/24/2016 - DDD (degenerative disc disease), lumbar 10/19/2011 - Diabetes mellitus type 2, controlled, without complications (HCC) 07/25/2005 - Diverticulitis of colon (without mention of hemorrhage)(562.11) 04/18/2005 - Essential hypertension 03/20/2010 - 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 - Mixed hyperlipidemia 04/18/2005 - Neurogenic claudication due to lumbar spinal stenosis 05/01/2017 - Other psoriasis 04/18/2005 - Paroxysmal atrial fibrillation (HCC) 05/06/2020 - Polymyalgia rheumatica ([facility]) - Primary osteoarthritis involving multiple joints 07/25/2005 - Unspecified hemorrhoids with other complication - VT (ventricular tachycardia) ([facility]) with AICD 07/24/2017 AICD PAST SURGICAL HISTORY Procedure Laterality Date - COLONOSCOP W/ OR W/O BRSH SPEC 08/27/2013 Colonoscopy - COLONOSCOPY 07/14/2003 - CORONARY STENT EA VESSEL 08/01/2017 ALAN mid RCA, balloon angioplasty distal RCA - 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 1995. 2002. - PAST SURGICAL HISTORY OF 08/2001 Arthroscopy Right Shoulder - PAST SURGICAL HISTORY OF 08/08/2004 Right CTR - PAST SURGICAL HISTORY OF 08/24/2004 Left CTR - STENT - CORONARY 07/04/2017 ALAN x 3 to LAD, ALAN x 1 prox. OM1. (4 stents) FAMILY HISTORY Problem Relation Age of Onset - Diabetes Mother - Arthritis Mother - Breast Cancer Sister Social History Tobacco Use - Smoking status: Former Smoker Packs/day: 0.50 Years: 30.00 Pack years: 15.00 Types: Cigarettes Start date: 07/01/1957 Quit date: 07/01/1979 Years since quittin.5 - Smokeless tobacco: Never Used Substance Use Topics - Alcohol use: Yes Comment: rare wine. - Drug use: No Current Meds sertraline (ZOLOFT) 50 mg tablet Take 1 tablet by mouth once daily. folic acid 1 mg tablet Take 1 tablet by mouth once daily. rosuvastatin (CRESTOR) 5 mg tablet Take 5 mg by mouth once daily. Dr. Milks. BOYKIN, Cardiology/Lipidology. Take 1.5 tablet once daily. apixaban (ELIQUIS) 2.5 mg tab tab(s) Take 1 tablet by mouth twice daily. furosemide (LASIX) 40 mg tablet Take 2 tablets by mouth every morning AND 1 tablet daily before lunch. sacubitril-valsartan (ENTRESTO) 24-26 mg tablet Take 1 tablet by mouth twice daily. metoprolol succinate ER (TOPROL XL) 25 mg 24 hr tablet Take 1 tablet by mouth once daily. Per Dr. Ibarra. coenzyme Q10 (CO Q-10) 100 mg cap capsule Take 100 mg by mouth once daily. isosorbide mononitrate ER (IMDUR) 60 mg 24 hr tablet Take 60 mg by mout (more content not included)...[facility]07-16-2021 NoteHNO ID: [id number] Author: Bev Bertrand MD Service: ? Author Type: Physician Type: Procedures Filed: 01/13/2021 8:25 AM Note Text: JUVENTINO Garcia is a 85 year old male who presents with pain here for intervention Review of Systems REVIEW OF SYTEMS: Systemic Symptoms: Negative except as noted. Head Symptoms: Negative except as noted. Pulmonary Symptoms: Negative except as noted. Other ROS: Negative except as noted. Cardiovascular Symptoms: Negative except as noted. Gastrointestinal Symptoms: Negative except as noted. Genitourinary Symptoms: Negative except as noted. Neurological Symptoms: Negative except as noted. Endocrine Symptoms: Negative except as noted. Hematologic Symptoms: No History of Easy Bleeding. No History of Bruising. Musculoskeletal Symptoms: Negative except as noted. Skin Symptoms: Negative except as noted. Psychiatric Symptoms: Not feeling depressed. Not thinking about suicide. PAST MEDICAL HISTORY Diagnosis Date - Abscess of intestine - Acute myocardial infarction, unspecified site, subsequent episode of care - ASHD (arteriosclerotic heart disease) 03/20/2010 - Bilateral hearing loss 10/24/2016 - Cardiomyopathy, ischemic 05/18/2016 - Chronic low back pain with sciatica 05/07/2017 - CKD (chronic kidney disease) stage 3, GFR 30-59 ml/min ([facility]) 10/24/2016 - DDD (degenerative disc disease), lumbar 10/19/2011 - Diabetes mellitus type 2, controlled, without complications ([facility]) 07/25/2005 - Diverticulitis of colon (without mention of hemorrhage)(562.11) 04/18/2005 - Essential hypertension 03/20/2010 - 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 - Mixed hyperlipidemia 04/18/2005 - Neurogenic claudication due to lumbar spinal stenosis 05/01/2017 - Other psoriasis 04/18/2005 - Paroxysmal atrial fibrillation (HCC) 05/06/2020 - Polymyalgia rheumatica (HCC) - Primary osteoarthritis involving multiple joints 07/25/2005 - Unspecified hemorrhoids with other complication - VT (ventricular tachycardia) (HCC) with AICD 07/24/2017 AICD PAST SURGICAL HISTORY Procedure Laterality Date - COLONOSCOP W/ OR W/O BRSH SPEC 08/27/2013 Colonoscopy - COLONOSCOPY 07/14/2003 - CORONARY STENT EA VESSEL 08/01/2017 ALAN mid RCA, balloon angioplasty distal RCA - 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 1995. 2002. - PAST SURGICAL HISTORY OF 08/2001 Arthroscopy Right Shoulder - PAST SURGICAL HISTORY OF 08/08/2004 Right CTR - PAST SURGICAL HISTORY OF 08/24/2004 Left CTR - STENT - CORONARY 07/04/2017 ALAN x 3 to LAD, ALAN x 1 prox. OM1. (4 stents) Family History Problem Relation Age of Onset - Diabetes Mother - Arthritis Mother - Breast Cancer Sister Social History Tobacco Use - Smoking status: Former Smoker Packs/day: 0.50 Years: 30.00 Pack years: 15.00 Types: Cigarettes Start date: 07/01/1957 Quit date: 07/01/1979 Years since quittin.5 - Smokeless tobacco: Never Used Substance Use Topics - Alcohol use: Yes Comment: rare wine. - Drug use: No Current Outpatient Medications Medication Sig Dispense Refill - sertraline (ZOLOFT) 50 mg tablet Take 1 tablet by mouth once daily. 90 tablet 3 - folic acid 1 mg tablet Take 1 tablet by mouth once daily. 90 tablet 3 - rosuvastatin (CRESTOR) 5 mg tablet Take 5 mg by mouth once daily. Dr. Milks. BOYKIN, Cardiology/Lipidology. Take 1.5 tablet once daily. - apixaban (ELIQUIS) 2.5 mg tab tab(s) Take 1 tablet by mouth twice daily. - furosemide (LASIX) 40 mg tablet Take 2 tablets by mouth every morning AND 1 tablet daily before lunch. - sacubitril-valsartan (ENTRESTO) 24-26 mg tablet Take 1 tablet by mouth twice daily. - metoprolol succinate ER (TOPROL XL) 25 mg 24 hr tablet Take 1 tablet by mouth once daily. Per Dr. Ibarra. - coenzyme Q10 (CO Q-10) 100 mg cap capsule Take 100 mg by mouth once daily. - isosorbide mononitrate ER (IMDUR) 60 mg 24 hr tablet Take 60 mg by mouth once daily. - TURMERIC ORAL Take 2 capsules by mouth once daily. - nitroglycerin sublingual (NITROSTAT) 0.4 mg SL tablet Dissolve 1 tablet under the tongue as needed for Chest Pain. If no pain relief call 911. 25 tablet 3 - Cholecalciferol, Vitamin D3, 2,000 unit cap Take 1 capsule by mouth once daily. - aspirin, enteric coated (ADULT LOW DOSE ASPIRIN) 81 mg EC tablet Take 1 tablet by mouth once daily. 0 - Rcblieqnfmxxq-Pbglqptb-Fhrymi (CENTRUM SILVER) Tab Take 1 tablet by mouth once daily. 0 Current Facility-Administered Medications Medication Dose Route Frequency Provider Last Rate Last Admin - bupivacaine HCl 7.5 mg injection (SENSORCAINE) 3 mL OTHER ONCE Bev Bertrand MD - lidocaine 10 mg/mL (1 %) 100 mg injection (XYLOCAINE) 100 mg OTHER ONCE Bev Bertrand MD Objective Constitutional: Normal Good Appearance Oriented to Time, Place and Person Skin: Normal Examination of (more content not included)...[facility] 01-13-2021 NoteHNO ID: [id number] Author: Josh Gipson LPN Service: ? Author Type: ? Type: Progress Notes Filed: 01/13/2021 8:25 AM Note Text: Subjective HPI Review of Systems Eyes: Negative for blurred vision. Respiratory: Positive for shortness of breath. Cardiovascular: Negative for chest pain and leg swelling. Gastrointestinal: Negative for constipation, diarrhea, nausea and vomiting. Genitourinary: Negative for dysuria. Skin: Negative for itching. Neurological: Negative for dizziness, tingling, weakness and headaches. Endo/Heme/Allergies: Bruises/bleeds easily. Psychiatric/Behavioral: Negative for depression and suicidal ideas. PAST MEDICAL HISTORY Diagnosis Date - Abscess of intestine - Acute myocardial infarction, unspecified site, subsequent episode of care - ASHD (arteriosclerotic heart disease) 03/20/2010 - Bilateral hearing loss 10/24/2016 - Cardiomyopathy, ischemic 05/18/2016 - Chronic low back pain with sciatica 05/07/2017 - CKD (chronic kidney disease) stage 3, GFR 30-59 ml/min ([facility]) 10/24/2016 - DDD (degenerative disc disease), lumbar 10/19/2011 - Diabetes mellitus type 2, controlled, without complications ([facility]) 07/25/2005 - Diverticulitis of colon (without mention of hemorrhage)(562.11) 04/18/2005 - Essential hypertension 03/20/2010 - 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 - Mixed hyperlipidemia 04/18/2005 - Neurogenic claudication due to lumbar spinal stenosis 05/01/2017 - Other psoriasis 04/18/2005 - Paroxysmal atrial fibrillation ([facility]) 05/06/2020 - Polymyalgia rheumatica ([facility]) - Primary osteoarthritis involving multiple joints 07/25/2005 - Unspecified hemorrhoids with other complication - VT (ventricular tachycardia) ([facility]) with AICD 07/24/2017 AICD PAST SURGICAL HISTORY Procedure Laterality Date - COLONOSCOP W/ OR W/O BRSH SPEC 08/27/2013 Colonoscopy - COLONOSCOPY 07/14/2003 - CORONARY STENT EA VESSEL 08/01/2017 ALAN mid RCA, balloon angioplasty distal RCA - 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 1996. 2002. - PAST SURGICAL HISTORY OF 08/2001 Arthroscopy Right Shoulder - PAST SURGICAL HISTORY OF 08/08/2004 Right CTR - PAST SURGICAL HISTORY OF 08/24/2004 Left CTR - STENT - CORONARY 07/04/2017 ALAN x 3 to LAD, ALAN x 1 prox. OM1. (4 stents) FAMILY HISTORY Problem Relation Age of Onset - Diabetes Mother - Arthritis Mother - Breast Cancer Sister Social History Tobacco Use - Smoking status: Former Smoker Packs/day: 0.50 Years: 30.00 Pack years: 15.00 Types: Cigarettes Start date: 07/01/1957 Quit date: 07/01/1979 Years since quittin.5 - Smokeless tobacco: Never Used Substance Use Topics - Alcohol use: Yes Comment: rare wine. - Drug use: No Current Meds sertraline (ZOLOFT) 50 mg tablet Take 1 tablet by mouth once daily. folic acid 1 mg tablet Take 1 tablet by mouth once daily. rosuvastatin (CRESTOR) 5 mg tablet Take 5 mg by mouth once daily. Dr. Napier. [facility], Cardiology/Lipidology. Take 1.5 tablet once daily. apixaban (ELIQUIS) 2.5 mg tab tab(s) Take 1 tablet by mouth twice daily. furosemide (LASIX) 40 mg tablet Take 2 tablets by mouth every morning AND 1 tablet daily before lunch. sacubitril-valsartan (ENTRESTO) 24-26 mg tablet Take 1 tablet by mouth twice daily. metoprolol succinate ER (TOPROL XL) 25 mg 24 hr tablet Take 1 tablet by mouth once daily. Per Dr. Ibarra. coenzyme Q10 (CO Q-10) 100 mg cap capsule Take 100 mg by mouth once daily. isosorbide mononitrate ER (IMDUR) 60 mg 24 hr tablet Take 60 mg by mouth once daily. TURMERIC ORAL Take 2 capsules by mouth once daily. nitroglycerin sublingual (NITROSTAT) 0.4 mg SL tablet Dissolve 1 tablet under the tongue as needed for Chest Pain. If no pain relief call 911. Cholecalciferol, Vitamin D3, 2,000 unit cap Take 1 capsule by mouth once daily. aspirin, enteric coated (ADULT LOW DOSE ASPIRIN) 81 mg EC tablet Take 1 tablet by mouth once daily. Oxdzdvptbvhur-Mporgnhv-Gmdlgd (CENTRUM SILVER) Tab Take 1 tablet by mouth once daily. Objective There were no vitals taken for this visit. [facility] (AGSPINE3) MARCOS GARCIA ([id number]) 1935 M Date Time Provider Department 01/13/21 7:55 AM BEV [id number] During your visit today, we recorded the following information about you: Temperature Pulse Respiration Blood pressure 97.4 degrees 70/minute minute 137/70 Weight Height 86.2 kg 1.753 m Josh Donley [employer] 01/13/2021 8:08 AM Signed Audit Partner: ROBBIE Are you on a blood thinner: Y If yes, is a hold required: N Last dose of blood thinner: N INR result today: N Do you require a Lovenox bridge: N Are you a diabetic: N BS result today: N Are you/could you be : N Are you taking Xanax for the procedure: N Are you currently on an antibiotic: N Are you currently on a steroid: N Have you received a dose of the COVID vaccine in the last 14 days: N. LAST DOSE GREATER THAN 2 WEEKS - Josh Donley, [employer] Josh Donley [employer] 01/13/2021 8:25 AM Signed Subjective HPI Review of Systems Eyes: Negative for blurred vision. Respiratory: Positive for shortness of breath. Cardiovascular: Negative for chest pain and leg swelling. Gastrointestinal: Negative for constipation, diarrhea, nausea and vomiting. Genitourinary: Negative for dysuria. Skin: Negative for itching. Neurological: Negative for dizziness, tingling, weakness and headaches. Endo/Heme/Allergies: Bruises/bleeds easily. Psychiatric/Behavioral: Negative for depression and suicidal ideas. PAST MEDICAL HISTORY Diagnosis Date - Abscess of intestine - Acute myocardial infarction, unspecified site, subsequent episode of care - ASHD (arteriosclerotic heart disease) 03/20/2010 - Bilateral hearing loss 10/24/2016 - Cardiomyopathy, ischemic 05/18/2016 - Chronic low back pain with sciatica 05/07/2017 - CKD (chronic kidney disease) stage 3, GFR 30-59 ml/min ([facility]) 10/24/2016 - DDD (degenerative disc disease), lumbar 10/19/2011 - Diabetes mellitus type 2, controlled, without complications ([facility]) 07/25/2005 - Diverticulitis of colon (without mention of hemorrhage)(562.11) 04/18/2005 - Essential hypertension 03/20/2010 - 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 - Mixed hyperlipidemia 04/18/2005 - Neurogenic claudication due to lumbar spinal stenosis 05/01/2017 - Other psoriasis 04/18/2005 - Paroxysmal atrial fibrillation (HCC) 05/06/2020 - Polymyalgia rheumatica ([facility]) - Primary osteoarthritis involving multiple joints 07/25/2005 - Unspecified hemorrhoids with other complication - VT (ventricular tachycardia) (HCC) with AICD 07/24/2017 AICD PAST SURGICAL HISTORY Procedure Laterality Date - COLONOSCOP W/ OR W/O BRSH SPEC 08/27/2013 Colonoscopy - COLONOSCOPY 07/14/2003 - CORONARY STENT EA VESSEL 08/01/2017 ALAN mid RCA, balloon angioplasty distal RCA - 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 1995. 2002. - PAST SURGICAL HISTORY OF 08/2001 Arthroscopy Right Shoulder - PAST SURGICAL HISTORY OF 08/08/2004 Right CTR - PAST SURGICAL HISTORY OF 08/24/2004 Left CTR - STENT - CORONARY 07/04/2017 ALAN x 3 to LAD, ALAN x 1 prox. OM1. (4 stents) FAMILY HISTORY Problem Relation Age of Onset - Diabetes Mother - Arthritis Mother - Breast Cancer Sister Social History Tobacco Use - Smoking status: Former Smoker Packs/day: 0.50 Years: 30.00 Pack years: 15.00 Types: Cigarettes Start date: 07/01/1957 Quit date: 07/01/1979 Years since quittin.5 - Smokeless tobacco: Never Used Substance Use Topics - Alcohol use: Yes Comment: rare wine. - Drug use: No Current Meds sertraline (ZOLOFT) 50 mg tablet Take 1 tablet by mouth once daily. folic acid 1 mg tablet Take 1 tablet by mouth once daily. rosuvastatin (CRESTOR) 5 mg tablet Take 5 mg by mouth once daily. Dr. Milks. [facility], Cardiology/Lipidology. Take 1.5 tablet once daily. apixaban (ELIQUIS) 2.5 mg tab tab(s) Take 1 tablet by mouth twice daily. furosemide (LASIX) 40 mg tablet Take 2 tablets by mouth every morning AND 1 tablet daily before lunch. sacubitril-valsartan (ENTRESTO) 24-26 mg tablet Take 1 tablet by mouth twice daily. metoprolol succinate ER (TOPROL XL) 25 mg 24 hr tablet Take 1 tablet by mouth once daily. Per Dr. Ibarra. coenzyme Q10 (CO Q-10) 100 mg cap capsule Take 100 mg by mouth once daily. isosorbide mononitrate ER (IMDUR) 60 mg 24 hr tablet Take 60 mg by mouth once daily. TURMERIC ORAL Take 2 capsules by mouth once daily. nitroglycerin sublingual (NITROSTAT) 0.4 mg SL tablet Dissolve 1 tablet under the tongue as needed for Chest Pain. If no pain relief call 911. Cholecalciferol, Vitamin D3, 2,000 unit cap Take 1 capsule by mouth once daily. aspirin, enteric coated (ADULT LOW DOSE ASPIRIN) 81 mg EC tablet Take 1 tablet by mouth once daily. Wfevzxcllrahz-Ighmmcpe-Ufsrdy (CENTRUM SILVER) Tab Take 1 tablet by mouth once daily. (more content not included)...[facility]05-20-[facility]21 NoteHNO ID: [id number] Author: Sandro Burleson APRN.[employer] Service: ? Author Type: Nurse Practitioner Type: Progress Notes Filed: 11/17/2020 5:06 PM Note Text: Subjective Marcos Garcia is a 84 year old male who presents With low back pain times several years. Pain does not radiate into any limb. He reports this to be just pain however during further discussion it is an aching stabbing he rates it 5 out of 10. This was not caused by any known injury. This is worsened by walking for long peers of time standing for long periods of time bending lifting twisting. He is taken zlsd-mhc-ipodyuk medications, he has completed a course of physical therapy in the past year with minor relief. Patient has not had imaging on this location for quite some time. The history is provided by the patient. Following up after x-rays Review of Systems Eyes: Negative for blurred vision and double vision. Respiratory: Negative for shortness of breath. Cardiovascular: Negative for chest pain and leg swelling. Gastrointestinal: Negative for constipation, diarrhea, nausea and vomiting. Genitourinary: Negative for dysuria. Skin: Negative for itching. Neurological: Negative for dizziness, tingling, weakness and headaches. Endo/Heme/Allergies: Does not bruise/bleed easily. Psychiatric/Behavioral: Negative for depression and suicidal ideas. The patient is not nervous/anxious. PAST MEDICAL HISTORY Diagnosis Date - Abscess of intestine - Acute myocardial infarction, unspecified site, subsequent episode of care - ASHD (arteriosclerotic heart disease) 03/20/2010 - Bilateral hearing loss 10/24/2016 - Cardiomyopathy, ischemic 05/18/2016 - Chronic low back pain with sciatica 05/07/2017 - CKD (chronic kidney disease) stage 3, GFR 30-59 ml/min ([facility]) 10/24/2016 - DDD (degenerative disc disease), lumbar 10/19/2011 - Diabetes mellitus type 2, controlled, without complications ([facility]) 07/25/2005 - Diverticulitis of colon (without mention of hemorrhage)(562.11) 04/18/2005 - Essential hypertension 03/20/2010 - 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 - Mixed hyperlipidemia 04/18/2005 - Neurogenic claudication due to lumbar spinal stenosis 05/01/2017 - Other psoriasis 04/18/2005 - Paroxysmal atrial fibrillation (HCC) 05/06/2020 - Polymyalgia rheumatica ([facility]) - Primary osteoarthritis involving multiple joints 07/25/2005 - Unspecified hemorrhoids with other complication - VT (ventricular tachycardia) ([facility]) with AICD 07/24/2017 AICD PAST SURGICAL HISTORY Procedure Laterality Date - COLONOSCOP W/ OR W/O BRSH SPEC 08/27/2013 Colonoscopy - COLONOSCOPY 07/14/2003 - CORONARY STENT EA VESSEL 08/01/2017 ALAN mid RCA, balloon angioplasty distal RCA - 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 1995. 2002. - PAST SURGICAL HISTORY OF 08/2001 Arthroscopy Right Shoulder - PAST SURGICAL HISTORY OF 08/08/2004 Right CTR - PAST SURGICAL HISTORY OF 08/24/2004 Left CTR - STENT - CORONARY 07/04/2017 ALAN x 3 to LAD, ALAN x 1 prox. OM1. (4 stents) FAMILY HISTORY Problem Relation Age of Onset - Diabetes Mother - Arthritis Mother - Breast Cancer Sister Social History Tobacco Use - Smoking status: Former Smoker Packs/day: 0.50 Years: 30.00 Pack years: 15.00 Types: Cigarettes Start date: 07/01/1957 Quit date: 07/01/1979 Years since quittin.4 - Smokeless tobacco: Never Used Substance Use Topics - Alcohol use: Yes Comment: rare wine. - Drug use: No Current Meds sertraline (ZOLOFT) 50 mg tablet Take 1 tablet by mouth once daily. folic acid 1 mg tablet Take 1 tablet by mouth once daily. rosuvastatin (CRESTOR) 5 mg tablet Take 5 mg by mouth once daily. Dr. Napier. [facility], Cardiology/Lipidology. Take 1.5 tablet once daily. apixaban (ELIQUIS) 2.5 mg tab tab(s) Take 1 tablet by mouth twice daily. furosemide (LASIX) 40 mg tablet Take 2 tablets by mouth every morning AND 1 tablet daily before lunch. sacubitril-valsartan (ENTRESTO) 24-26 mg tablet Take 1 tablet by mouth twice daily. metoprolol succinate ER (TOPROL XL) 25 mg 24 hr tablet Take 1 tablet by mouth once daily. Per Dr. Ibarra. coenzyme Q10 (CO Q-10) 100 mg cap capsule Take 100 mg by mouth once daily. isosorbide mononitrate ER (IMDUR) 60 mg 24 hr tablet Take 60 mg by mouth once daily. TURMERIC ORAL Take 2 capsules by mouth once daily. nitroglycerin sublingual (NITROSTAT) 0.4 mg SL tablet Dissolve 1 tablet under the tongue as needed for Chest Pain. If no pain relief call 911. Cholecalciferol, Vitamin D3, 2,000 unit cap Take 1 capsule by mouth once daily. aspirin, enteric coated (ADULT LOW DOSE ASPIRIN) 81 mg EC tablet Take 1 tablet by mouth once daily. Curzkedlzopfh-Prprwqxj-Cxucgb (CENTRUM SILVER) Tab Take 1 tablet by mouth once daily. Objective Ht 175.3 cm (5' 9 ) Wt 86.2 kg (190 lb) BMI 28.06 kg/m? Physical Exam INPATIENT TELEPHO (more content not included)...[facility] 11-10-2020 NoteHNO ID: [id number] Author: Sandro Burleson APRN.[facility] Service: ? Author Type: Nurse Practitioner Type: Progress Notes Filed: 11/17/2020 8:27 AM Note Text: Subjective Marcos Garcia is a 84 year old male who presents With low back pain times several years. Pain does not radiate into any limb. He reports this to be just pain however during further discussion it is an aching stabbing he rates it 5 out of 10. This was not caused by any known injury. This is worsened by walking for long peers of time standing for long periods of time bending lifting twisting. He is taken bxic-dkp-eecshxm medications, he has completed a course of physical therapy in the past year with minor relief. Patient has not had imaging on this location for quite some time. --He is here to see what we can do for his pain Review of Systems Eyes: Negative for blurred vision and double vision. Respiratory: Positive for shortness of breath. Cardiovascular: Negative for chest pain and leg swelling. Gastrointestinal: Negative for constipation, diarrhea, nausea and vomiting. Genitourinary: Negative for dysuria. Skin: Negative for itching. Neurological: Negative for dizziness, tingling, weakness and headaches. Endo/Heme/Allergies: Bruises/bleeds easily. Psychiatric/Behavioral: Negative for depression and suicidal ideas. The patient is not nervous/anxious. PAST MEDICAL HISTORY Diagnosis Date - Abscess of intestine - Acute myocardial infarction, unspecified site, subsequent episode of care - ASHD (arteriosclerotic heart disease) 03/20/2010 - Bilateral hearing loss 10/24/2016 - Cardiomyopathy, ischemic 05/18/2016 - Chronic low back pain with sciatica 05/07/2017 - CKD (chronic kidney disease) stage 3, GFR 30-59 ml/min ([facility]) 10/24/2016 - DDD (degenerative disc disease), lumbar 10/19/2011 - Diabetes mellitus type 2, controlled, without complications ([facility]) 07/25/2005 - Diverticulitis of colon (without mention of hemorrhage)(562.11) 04/18/2005 - Essential hypertension 03/20/2010 - 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 - Mixed hyperlipidemia 04/18/2005 - Neurogenic claudication due to lumbar spinal stenosis 05/01/2017 - Other psoriasis 04/18/2005 - Paroxysmal atrial fibrillation (HCC) 05/06/2020 - Polymyalgia rheumatica ([facility]) - Primary osteoarthritis involving multiple joints 07/25/2005 - Unspecified hemorrhoids with other complication - VT (ventricular tachycardia) ([facility]) with AICD 07/24/2017 AICD PAST SURGICAL HISTORY Procedure Laterality Date - COLONOSCOP W/ OR W/O BRSH SPEC 08/27/2013 Colonoscopy - COLONOSCOPY 07/14/2003 - CORONARY STENT EA VESSEL 08/01/2017 ALAN mid RCA, balloon angioplasty distal RCA - 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 1995. 2002. - PAST SURGICAL HISTORY OF 08/2001 Arthroscopy Right Shoulder - PAST SURGICAL HISTORY OF 08/08/2004 Right CTR - PAST SURGICAL HISTORY OF 08/24/2004 Left CTR - STENT - CORONARY 07/04/2017 ALAN x 3 to LAD, ALAN x 1 prox. OM1. (4 stents) FAMILY HISTORY Problem Relation Age of Onset - Diabetes Mother - Arthritis Mother - Breast Cancer Sister Social History Tobacco Use - Smoking status: Former Smoker Packs/day: 0.50 Years: 30.00 Pack years: 15.00 Types: Cigarettes Start date: 07/01/1957 Quit date: 07/01/1979 Years since quittin.3 - Smokeless tobacco: Never Used Substance Use Topics - Alcohol use: Yes Comment: rare wine. - Drug use: No Current Meds sertraline (ZOLOFT) 50 mg tablet Take 1 tablet by mouth once daily. folic acid 1 mg tablet Take 1 tablet by mouth once daily. rosuvastatin (CRESTOR) 5 mg tablet Take 5 mg by mouth once daily. Dr. Milks. [facility], Cardiology/Lipidology. Take 1.5 tablet once daily. apixaban (ELIQUIS) 2.5 mg tab tab(s) Take 1 tablet by mouth twice daily. furosemide (LASIX) 40 mg tablet Take 2 tablets by mouth every morning AND 1 tablet daily before lunch. sacubitril-valsartan (ENTRESTO) 24-26 mg tablet Take 1 tablet by mouth twice daily. metoprolol succinate ER (TOPROL XL) 25 mg 24 hr tablet Take 1 tablet by mouth once daily. Per Dr. Ibarra. coenzyme Q10 (CO Q-10) 100 mg cap capsule Take 100 mg by mouth once daily. isosorbide mononitrate ER (IMDUR) 60 mg 24 hr tablet Take 60 mg by mouth once daily. TURMERIC ORAL Take 2 capsules by mouth once daily. nitroglycerin sublingual (NITROSTAT) 0.4 mg SL tablet Dissolve 1 tablet under the tongue as needed for Chest Pain. If no pain relief call 911. Cholecalciferol, Vitamin D3, 2,000 unit cap Take 1 capsule by mouth once daily. aspirin, enteric coated (ADULT LOW DOSE ASPIRIN) 81 mg EC tablet Take 1 tablet by mouth once daily. Tzndxsidjtlfv-Fxqohhuy-Jsqdht (CENTRUM SILVER) Tab Take 1 tablet by mouth once daily. Objective Temp 36.4 ?C (97.5 ?F) Ht 175.3 cm (5' 9 ) Wt 86.2 kg (190 lb) BMI 28.06 kg/m? Physical Exam Constitutional: (more content not included)...[facility] History of Past illness Narrative* Problem Noted Date Resolved Date Chronic low back pain with sciatica 05/07/2017 05/01/2018 CKD (chronic kidney disease) stage 3, GFR 30-59 ml/min 10/24/2016 11/04/2019 History of [place] (myocardial infarction) 05/01/2016 05/01/2018 Unspecified arthropathy, pelvic region and thigh 11/30/2013 04/24/2016 DDD (degenerative disc disease), lumbar 10/19/19 12 10/24/2016 Sciatica 10/19/2011 10/24/2016 Adverse drug effect 12/24/2010 04/29/2017 Polymyalgia rheumatica 04/24/2005 7 Other psoriasis 04/18/2005 04/29/2017 Diverticulitis of colon (without mention of hemo rrhage) 04/18/2005 10/24/2016 documented as of this encounter (statuses as of 09/25/2021) [facility]11-07-2017 History of Past illness Narrative* Problem Noted Date Resolved Date Chronic low back pain with sciatica 05/07/2017 05/01/2018 CKD (chronic kidney disease) stage 3, GFR 30-59 ml/min 10/24/2016 11/04/2019 History of TN (myocardial infarction) 05/01/2016 05/01/2018 Unspecified arthropathy, pelvic region and thigh 11/30/2013 04/24/2016 DDD (degenerative disc disease), lumbar 10/19/19 12 10/24/2016 Sciatica 10/19/2011 10/24/2016 Adverse drug effect 12/24/2010 04/29/2017 Polymyalgia rheumatica 04/24/2005 7 Other psoriasis 04/18/2005 04/29/2017 Diverticulitis of colon (without mention of hemo rrhage) 04/18/2005 10/24/2016 documented as of this encounter (statuses as of 09/26/2021) [facility] History of Past illness Narrative* Problem Noted Date Resolved Date Chronic low back pain with sciatica 05/07/2017 05/01/2018 CKD (chronic kidney disease) stage 3, GFR 30-59 ml/min 10/24/2016 11/04/2019 History of TN (myocardial infarction) 05/01/2016 05/01/2018 Unspecified arthropathy, pelvic region and thigh 11/30/2013 04/24/2016 DDD (degenerative disc disease), lumbar 10/19/19 12 10/24/2016 Sciatica 10/19/2011 10/24/2016 Adverse drug effect 12/24/2010 04/29/2017 Polymyalgia rheumatica 04/24/2005 7 Other psoriasis 04/18/2005 04/29/2017 Diverticulitis of colon (without mention of hemo rrhage) 04/18/2005 10/24/2016 documented as of this encounter (statuses as of 10/09/2021) [facility] History of Past illness Narrative* Problem Noted Date Resolved Date Chronic low back pain with sciatica 05/07/2017 05/01/2018 CKD (chronic kidney disease) stage 3, GFR 30-59 ml/min 10/24/2016 11/04/2019 History of TN (myocardial infarction) 05/01/2016 05/01/2018 Unspecified arthropathy, pelvic region and thigh 11/30/2013 04/24/2016 DDD (degenerative disc disease), lumbar 10/19/19 12 10/24/2016 Sciatica 10/19/2011 10/24/2016 Adverse drug effect 12/24/2010 04/29/2017 Polymyalgia rheumatica 04/24/2005 7 Other psoriasis 04/18/2005 04/29/2017 Diverticulitis of colon (without mention of hemo rrhage) 04/18/2005 10/24/2016 documented as of this encounter (statuses as of 10/23/2021) [facility] History of Past illness Narrative* Problem Noted Date Resolved Date Chronic low back pain with sciatica 05/07/2017 05/01/2018 CKD (chronic kidney disease) stage 3, GFR 30-59 ml/min 10/24/2016 11/04/2019 History of TN (myocardial infarction) 05/01/2016 05/01/2018 Unspecified arthropathy, pelvic region and thigh 11/30/2013 04/24/2016 DDD (degenerative disc disease), lumbar 10/19/19 12 10/24/2016 Sciatica 10/19/2011 10/24/2016 Adverse drug effect 12/24/2010 04/29/2017 Polymyalgia rheumatica 04/24/2005 7 Other psoriasis 04/18/2005 04/29/2017 Diverticulitis of colon (without mention of hemo rrhage) 04/18/2005 10/24/2016 documented as of this encounter (statuses as of 10/27/2021) [facility] History of Past illness Narrative* Problem Noted Date Resolved Date Chronic low back pain with sciatica 05/07/2017 05/01/2018 CKD (chronic kidney disease) stage 3, GFR 30-59 ml/min 10/24/2016 11/04/2019 History of TN (myocardial infarction) 05/01/2016 05/01/2018 Unspecified arthropathy, pelvic region and thigh 11/30/2013 04/24/2016 DDD (degenerative disc disease), lumbar 10/19/19 12 10/24/2016 Sciatica 10/19/2011 10/24/2016 Adverse drug effect 12/24/2010 04/29/2017 Polymyalgia rheumatica 04/24/2005 7 Other psoriasis 04/18/2005 04/29/2017 Diverticulitis of colon (without mention of hemo rrhage) 04/18/2005 10/24/2016 documented as of this encounter (statuses as of 11/09/2021) [facility] History of Past illness Narrative* Problem Noted Date Resolved Date Chronic low back pain with sciatica 05/07/2017 05/01/2018 CKD (chronic kidney disease) stage 3, GFR 30-59 ml/min 10/24/2016 11/04/2019 History of TN (myocardial infarction) 05/01/2016 05/01/2018 Unspecified arthropathy, pelvic region and thigh 11/30/2013 04/24/2016 DDD (degenerative disc disease), lumbar 10/19/19 12 10/24/2016 Sciatica 10/19/2011 10/24/2016 Adverse drug effect 12/24/2010 04/29/2017 Polymyalgia rheumatica 04/24/2005 7 Other psoriasis 04/18/2005 04/29/2017 Diverticulitis of colon (without mention of hemo rrhage) 04/18/2005 10/24/2016 documented as of this encounter (statuses as of 11/21/2021) [facility] History of Past illness Narrative* Problem Noted Date Resolved Date Chronic low back pain with sciatica 05/07/2017 05/01/2018 CKD (chronic kidney disease) stage 3, GFR 30-59 ml/min 10/24/2016 11/04/2019 History of TN (myocardial infarction) 05/01/2016 05/01/2018 Unspecified arthropathy, pelvic region and thigh 11/30/2013 04/24/2016 DDD (degenerative disc disease), lumbar 10/19/19 12 10/24/2016 Sciatica 10/19/2011 10/24/2016 Adverse drug effect 12/24/2010 04/29/2017 Polymyalgia rheumatica 04/24/2005 7 Other psoriasis 04/18/2005 04/29/2017 Diverticulitis of colon (without mention of hemo rrhage) 04/18/2005 10/24/2016 documented as of this encounter (statuses as of 11/23/2021) [facility] History of Past illness Narrative* Problem Noted Date Resolved Date Chronic low back pain with sciatica 05/07/2017 05/01/2018 CKD (chronic kidney disease) stage 3, GFR 30-59 ml/min 10/24/2016 11/04/2019 History of TN (myocardial infarction) 05/01/2016 05/01/2018 Unspecified arthropathy, pelvic region and thigh 11/30/2013 04/24/2016 DDD (degenerative disc disease), lumbar 10/19/19 12 10/24/2016 Sciatica 10/19/2011 10/24/2016 Adverse drug effect 12/24/2010 04/29/2017 Polymyalgia rheumatica 04/24/2005 7 Other psoriasis 04/18/2005 04/29/2017 Diverticulitis of colon (without mention of hemo rrhage) 04/18/2005 10/24/2016 documented as of this encounter (statuses as of 12/25/2021) [facility] History of Past illness Narrative* Problem Noted Date Resolved Date Chronic low back pain with sciatica 05/07/2017 05/01/2018 CKD (chronic kidney disease) stage 3, GFR 30-59 ml/min 10/24/2016 11/04/2019 History of TN (myocardial infarction) 05/01/2016 05/01/2018 Unspecified arthropathy, pelvic region and thigh 11/30/2013 04/24/2016 DDD (degenerative disc disease), lumbar 10/19/19 12 10/24/2016 Sciatica 10/19/2011 10/24/2016 Adverse drug effect 12/24/2010 04/29/2017 Polymyalgia rheumatica 04/24/2005 7 Other psoriasis 04/18/2005 04/29/2017 Diverticulitis of colon (without mention of hemo rrhage) 04/18/2005 10/24/2016 documented as of this encounter (statuses as of 04/20/2022) [facility]11-07-2017 History of Past illness Narrative* Problem Noted Date Resolved Date Chronic low back pain with sciatica 05/07/2017 05/01/2018 CKD (chronic kidney disease) stage 3, GFR 30-59 ml/min 10/24/2016 11/04/2019 History of TN (myocardial infarction) 05/01/2016 05/01/2018 Unspecified arthropathy, pelvic region and thigh 11/30/2013 04/24/2016 DDD (degenerative disc disease), lumbar 10/19/19 12 10/24/2016 Sciatica 10/19/2011 10/24/2016 Adverse drug effect 12/24/2010 04/29/2017 Polymyalgia rheumatica 04/24/2005 7 Other psoriasis 04/18/2005 04/29/2017 Diverticulitis of colon (without mention of hemo rrhage) 04/18/2005 10/24/2016 documented as of this encounter (statuses as of 05/19/2022) [facility]11-07-2017 History of Past illness Narrative* Problem Noted Date Resolved Date Chronic low back pain with sciatica 05/07/2017 05/01/2018 CKD (chronic kidney disease) stage 3, GFR 30-59 ml/min 10/24/2016 11/04/2019 History of TN (myocardial infarction) 05/01/2016 05/01/2018 Unspecified arthropathy, pelvic region and thigh 11/30/2013 04/24/2016 DDD (degenerative disc disease), lumbar 10/19/19 12 10/24/2016 Sciatica 10/19/2011 10/24/2016 Adverse drug effect 12/24/2010 04/29/2017 Polymyalgia rheumatica 04/24/2005 7 Other psoriasis 04/18/2005 04/29/2017 Diverticulitis of colon (without mention of hemo rrhage) 04/18/2005 10/24/2016 documented as of this encounter (statuses as of 05/20/2022) [facility] noteThere may be information available, but it has not been provided by the sender.[facility] Work Phone: Evaluation note* Diagnosis PAD (peripheral artery disease) (HCC)- Primary Peripheral vascular disease, unspecified Toe ulcer, left, limited to breakdown of skin (HCC) Skin ulcer of left heel, limited to breakdown of skin (HCC) [facility] Diagnosis PAD (peripheral artery disease) (HCC)- Primary Peripheral vascular disease, unspecified Skin ulcer of left heel, limited to breakdown of skin (HCC) [facility]* Diagnosis PAD (peripheral artery disease) (HCC)- Primary Peripheral vascular disease, unspecified Skin ulcer of left heel, limited to breakdown of skin (HCC) [facility] this [facility]* Diagnosis Controlled type 2 diabetes mellitus with stage 3 chronic kidney disease, without long-term current use of insulin (HCC) documented [facility] this [facility]* Diagnosis Controlled type 2 diabetes mellitus with stage 3 chronic kidney disease, without long-term current use of insulin (HCC)- Primary Mood disorder (HCC) Unspecified episodic mood disorder Paroxysmal atrial fibrillation (HCC) Atrial fibrillation Chronic bilateral low back pain, unspecified whether sciatica present Mixed hyperlipidemia [facility] Diagnosis PAD (peripheral artery disease) (HCC) Peripheral vascular disease, unspecified documented [facility] this [facility]* Diagnosis PAD (peripheral artery disease) (HCC)- Primary Peripheral vascular disease, unspecified Skin ulcer of left heel, limited to breakdown of skin (HCC) [facility]* Diagnosis Mood disorder (HCC) Unspecified episodic mood disorder [facility] this [facility]* Diagnosis CHF NYHA class I, acute on chronic, combined (HCC)- Primary Near syncope Elevated troponin Other abnormal blood chemistry Edema, unspecified type Flank pain Abdominal pain, unspecified site Dyspnea on exertion Other dyspnea and respiratory abnormality Chronic kidney disease, unspecified CKD stage documented in this encounter [facility] note* Diagnosis Pure hypercholesterolemia Ischemic cardiomyopathy Other specified forms of chronic ischemic heart disease documented in this encounter [facility] note* Diagnosis Fall, subsequent encounter- Primary Gait disturbance Abnormality of gait Controlled type 2 diabetes mellitus with stage 3 chronic kidney disease, without long-term current use of insulin ([facility]) Aortic stenosis, moderate Aortic valve disorders Cardiomyopathy, ischemic Other specified forms of chronic ischemic heart disease documented in this encounter [facility] note* Diagnosis Acute cough- Primary Diarrhea, unspecified type documented in this encounter [facility] note* Diagnosis Onychomycosis- Primary Dermatophytosis of nail Pain in toe of left foot Pain in limb Pain in toe of right foot Pain in limb PAD (peripheral artery disease) ([facility]) Peripheral vascular disease, unspecified Venous insufficiency Unspecified venous (peripheral) insufficiency documented in this encounter [facility] note* Diagnosis Acute cough- Primary URI, acute Acute upper respiratory infections of unspecified site documented in this encounter [facility] note* Diagnosis Pneumonia of right lung due to infectious organism, unspecified part of lung- Primary Diarrhea, unspecified type CKD (chronic kidney disease) stage 4, GFR 15-29 ml/min ([facility]) Chronic kidney disease, Stage IV (severe) Cardiomyopathy, ischemic Other specified forms of chronic ischemic heart disease Acute cough documented in this encounter [facility] note* Diagnosis Pure hypercholesterolemia Ischemic cardiomyopathy Other specified forms of chronic ischemic heart disease documented in this encounter [facility] note* Diagnosis Controlled type 2 diabetes mellitus with stage 3 chronic kidney disease, without long-term current use of insulin ([facility])- Primary Mood disorder ([facility]) Unspecified episodic mood disorder Paroxysmal atrial fibrillation ([facility]) Atrial fibrillation Platelets decreased ([facility]) Thrombocytopenia, unspecified Cardiomyopathy, ischemic Other specified forms of chronic ischemic heart disease History of pneumonia Personal history of pneumonia (recurrent) documented in this encounter [facility] note* Diagnosis Eye problem- Primary Other eye problems documented [facility] this [facility]* Diagnosis Fall, subsequent encounter- Primary Gait disturbance Abnormality of gait Perianal hematoma documented in this encounter [facility] note* Diagnosis Perianal hematoma documented in this encounter [facility] note* Diagnosis Mood disorder (HCC) Unspecified episodic mood disorder documented [facility] this [facility]* Diagnosis Non-healing wound of left lower extremity- Primary Cellulitis of skin Cellulitis and abscess of unspecified site documented in this [facility]* Diagnosis Cellulitis of skin- Primary Cellulitis and abscess of unspecified site Non-healing wound of left lower extremity documented [facility] this [facility]* Diagnosis Cellulitis of skin- Primary Cellulitis and abscess of unspecified site Delayed wound healing Open wound(s) (multiple) of unspecified site(s), complicated documented [facility] this [facility]* Diagnosis Lumbar strain, subsequent encounter- Primary documented [facility] this [facility]* Diagnosis Cellulitis of skin- Primary Cellulitis and abscess of unspecified site documented in this [facility]* Diagnosis Gait disturbance- Primary Abnormality of gait Cardiomyopathy, ischemic Other specified forms of chronic ischemic heart disease Neurogenic claudication due to lumbar spinal stenosis Spinal stenosis, lumbar region, with neurogenic claudication Impaired mobility and ADLs Other ill-defined conditions [facility]* Diagnosis Blister- Primary Other, multiple, and unspecified sites, blister, without mention of infection documented in this [facility]* Diagnosis Gait disturbance- Primary Abnormality of gait Impaired mobility Other ill-defined conditions Cardiomyopathy, ischemic Other specified forms of chronic ischemic heart disease Neurogenic claudication due to lumbar spinal stenosis Spinal stenosis, lumbar region, with neurogenic claudication documented in this encounter [facility] note* Diagnosis Buttock wound, left, initial encounter- Primary [facility] Instruction Description Start Date Patient advised to follow-up with Primary Care Physician for BMI management. [facility] Work Phone: Reason for referral (narrative)* Outpatient Procedure (Routine) - Authorized Specialty Diagnoses / Procedures Referred By Merly t Referred To [facility] Diagnoses PAD (peripheral artery disease) (HCC) Procedures PVR LEG RY VAS LAB NON-INVASIVE PHYSIOLOGIC STUDY EXTREMITY 3 Radha Garcia, DO [address] [place] [address] [facility] [place] [address] [place] [address] Referral ID Status Reason Start Date Expiration Date Visits Requested Visits Authorized [id number] Authorized Auto-Generat ed Referral 11/21/2021 11/21/2022 1 1 [facility] Summary Purpose Family History No Family History Records FoundNo Family History Records FoundThere may be information available, but it has not been provided by the sender.No Family History Records FoundNo Family History Records FoundNo Family History Records Found Advance Directives No Advanced Directives Records FoundLatest Code Status on File Date Activated Date Inactivated Comments 03/13/2022 5:18 PM 03/15/2022 5:54 PM Documents on File Type Date Recorded 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 He is in agreement with this code status. Full Code 01/07/2019 3:34 PM 01/07/2019 4:44 PM Full Code 07/02/2017 4:58 PM 07/06/2017 4:51 PM Latest Code Status on File Code Status Date Activated Date Inactivated Comments DNRCC-ARREST 01/07/2019 4:44 PM I have dis cussed Marcos Garcia's Do Not Resuscitate wishes with him. He is in agreement with this code status. Code Status History Code Status Date Activated Date Inactivated Comments Full Code 01/07/2019 3:34 PM 01/07/2019 4:44 PM Full Code 07/02/2017 4:58 PM 07/06/2017 4:51 PM Chief Complaint Chief Complaint Description Start Date lower back pain Preliminary chief co mplaint data, not yet signed by the author as of Reason for Referral Specialty Diagnoses / Procedures Referred By Merly salgado Referred To Contact Vascular Surgery Diagnoses PAD (peripheral artery disease) (HCC) Procedures CONSULT TO VASCULAR SURGERY OFFICE/OUTPATIENT NEW HIGH MDM 60-74 MINUTES Chantell Urbano, RAAD [address] [phone] Referral ID Status Reason Start Date Expiration Date Visits Requested Visits Authorized [id number] Pending Review PCP Requested Referral 09/25/2021 12/24/2021 1 1 Specialty Diagnoses / Procedures Referred By Contac t Referred To Contact General Surgery Diagnoses Perianal hematoma Procedures CONSULT TO GENERAL SURGERY OFFICE/OUTPATIENT NEW HIGH MDM 60-74 MINUTES Perry Olivas MD [address] [place] [address] Referral ID Status Reason Start Date Expiration Date Visits Requested Visits Authorized [id number] Pending Review PCP Requested Referral 01/28/2023 01/28/2024 1 1 Health Concerns Infection Onset Date Last Indicated Resolved Time COVID-19 Rule-Out 05/20/2022 05/20/2022 Infection Onset Date Last Indicated Resolved Time COVID-19 Rule-Out 09/07/2022 09/07/2022 Additional Source Comments (unrecognized sect ion and content) No Status Records FoundNo Status Records FoundNo Status Records FoundNo Status Records FoundNo Status Records Found INFORMATION SOURCE (unrecogn ized section and content) DATE CREATED AUTHOR AUTHOR'S ORGANIZ ATION 05/06/2021 [facility] DATE CREATED AUTHOR AUTHOR'S ORGANIZ ATION 07/25/2022 [facility] DATE CREATED AUTHOR AUTHOR'S ORGANIZ ATION 10/12/2022 [facility] DATE CREATED AUTHOR AUTHOR'S ORGANIZ ATION 07/19/2023 [facility] Reason for Visit (unrecogniz ed section and content) Reason Comments Follow Up Blister Itching Reason Onset Date Comments Population Health Navigation Outreach 09/25/2021 [employer] Gaps Reason Comments Established Patient Reason Comments Follow Up Follow Up Opened callus on nicko l Reason Comments F/U 6 months Reason Comments New Patient Specialty Diagnoses / Procedures Referred By Contac t Referred To Contact Vascular Surgery Diagnoses PAD (peripheral artery disease) (HCC) Procedures CONSULT TO VASCULAR SURGERY OFFICE/OUTPATIENT NEW HIGH MDM 60-74 MINUTES Chantell Urbano DPM [address] [place] [address] Referral ID Status Reason Start Date Expiration Date Visits Requested Visits Authorized [id number] Pending Review PCP Requested Referral 09/25/2021 12/24/2021 1 1 Reason Comments Follow Up Wound Check Reason Onset Date Comments Refill Request 12/25/2021 Reason Comments Chest Pain Specialty Diagnoses / Procedures Referred By Contac t Referred To Contact Diagnoses Dyspnea on exertion Elevated troponin Flank pain Near syncope CHF NYHA class I, acute on chronic, combined (HCC) Edema, unspecified type Chronic kidney disease, unspecified CKD stage Referral ID Status Reason Start Date Expiration Date Visits Re quested Visits Authorized [id number] 1 1 Reason Comments Hyperlipidemia Patient states no ne w concerns or complaints. Reason Comments ER F/U Reason Comments Release Of Medical Records Reason Comments Cough Cough x 1 week Reason Comments Patient Update Reason Comments FYI-No Action Needed Reason Comments Diabetic Foot Care Established Patient Follow Up Reason Comments Pain, Throat Pt reported cough, S OB, chest congestion, x3 days. Reason Comments pneumonia follow up Reason Comments Hyperlipidemia Reason Comments F/U 3 Month Reason Comments Eye Problem Pt reported (LT) eye irritation x2 hrs, unable to perform eye exam. Reason Comments Fall Reason Comments Consult Perianal hematoma s/ p fall. Specialty Diagnoses / Procedures Referred By Contac t Referred To Contact General Surgery Diagnoses Perianal hematoma Procedures CONSULT TO GENERAL SURGERY OFFICE/OUTPATIENT [facility] MDM 60-74 MINUTES Perry Olivas MD [address] [id number] Referral ID Status Reason Start Date Expiration Date Visits Requested Visits Authorized [id number] Pending Review PCP Requested Referral 01/28/2023 01/28/2024 1 1 Reason Onset Date Comments Refill Request 02/01/2023 Reason Comments Wound Check Wound on left leg x 1.5 months Reason Comments follow up - cellulitis Reason Comments Results Reason Comments ED Follow-up Reason Comments Leg Wound Blister on LLE x 1 d ay Reason Comments DME Request Reason Comments Edema Blister on RLE, x 1 day Reason Comments verbal orders Reason Comments Equipment Question Stair lift. Reason Comments WC HH PT POC Reason Comments LESION, SKIN open sores on buttoc k x couple weeks increased x today Source Comments (unrecognize d section and content) In the event this informatio n is protected by the Federal Confidentiality of Alcohol and Drug Abuse Patient Records regulations: The Federal rules restrict any use of the information to criminally investigate or prosecute any alcohol or drug abuse patient.[facility] the event this information is protected by the Federal Confidentiality of Alcohol and Drug Abuse Patient Records regulations: The Federal rules restrict any use of the information to criminally investigate or prosecute any alcohol or drug abuse patient.[facility] the event this information is protected by the Federal Confidentiality of Alcohol and Drug Abuse Patient Records regulations: The Federal rules restrict any use of the information to criminally investigate or prosecute any alcohol or drug abuse patient.[facility] the event this information is protected by the Federal Confidentiality of Alcohol and Drug Abuse Patient Records regulations: The Federal rules restrict any use of the information to criminally investigate or prosecute any alcohol or drug abuse patient.[facility] the event this information is protected by the Federal Confidentiality of Alcohol and Drug Abuse Patient Records regulations: The Federal rules restrict any use of the information to criminally investigate or prosecute any alcohol or drug abuse patient.[facility] the event this information is protected by the Federal Confidentiality of Alcohol and Drug Abuse Patient Records regulations: The Federal rules restrict any use of the information to criminally investigate or prosecute any alcohol or drug abuse patient.[facility] the event this information is protected by the Federal Confidentiality of Alcohol and Drug Abuse Patient Records regulations: The Federal rules restrict any use of the information to criminally investigate or prosecute any alcohol or drug abuse patient.[facility] the event this information is protected by the Federal Confidentiality of Alcohol and Drug Abuse Patient Records regulations: The Federal rules restrict any use of the information to criminally investigate or prosecute any alcohol or drug abuse patient.[facility] the event this information is protected by the Federal Confidentiality of Alcohol and Drug Abuse Patient Records regulations: The Federal rules restrict any use of the information to criminally investigate or prosecute any alcohol or drug abuse patient.[facility] the event this information is protected by the Federal Confidentiality of Alcohol and Drug Abuse Patient Records regulations: The Federal rules restrict any use of the information to criminally investigate or prosecute any alcohol or drug abuse patient.[facility] the event this information is protected by the Federal Confidentiality of Alcohol and Drug Abuse Patient Records regulations: The Federal rules restrict any use of the information to criminally investigate or prosecute any alcohol or drug abuse patient.[facility] the event this information is protected by the Federal Confidentiality of Alcohol and Drug Abuse Patient Records regulations: The Federal rules restrict any use of the information to criminally investigate or prosecute any alcohol or drug abuse patient.[facility] the event this information is protected by the Federal Confidentiality of Alcohol and Drug Abuse Patient Records regulations: The Federal rules restrict any use of the information to criminally investigate or prosecute any alcohol or drug abuse patient.[facility] the event this information is protected by the Federal Confidentiality of Alcohol and Drug Abuse Patient Records regulations: The Federal rules restrict any use of the information to criminally investigate or prosecute any alcohol or drug abuse patient.[facility] the event this information is protected by the Federal Confidentiality of Alcohol and Drug Abuse Patient Records regulations: The Federal rules restrict any use of the information to criminally investigate or prosecute any alcohol or drug abuse patient.[facility] HospitalIn the event this information is protected by the Federal Confidentiality of Alcohol and Drug Abuse Patient Records regulations: The Federal rules restrict any use of the information to criminally investigate or prosecute any alcohol or drug abuse patient.[facility] the event this information is protected by the Federal Confidentiality of Alcohol and Drug Abuse Patient Records regulations: The Federal rules restrict any use of the information to criminally investigate or prosecute any alcohol or drug abuse patient.[facility] the event this information is protected by the Federal Confidentiality of Alcohol and Drug Abuse Patient Records regulations: The Federal rules restrict any use of the information to criminally investigate or prosecute any alcohol or drug abuse patient.[facility] the event this information is protected by the Federal Confidentiality of Alcohol and Drug Abuse Patient Records regulations: The Federal rules restrict any use of the information to criminally investigate or prosecute any alcohol or drug abuse patient.[facility] HospitalIn the event this information is protected by the Federal Confidentiality of Alcohol and Drug Abuse Patient Records regulations: The Federal rules restrict any use of the information to criminally investigate or prosecute any alcohol or drug abuse patient.[facility] the event this information is protected by the Federal Confidentiality of Alcohol and Drug Abuse Patient Records regulations: The Federal rules restrict any use of the information to criminally investigate or prosecute any alcohol or drug abuse patient.[facility] the event this information is protected by the Federal Confidentiality of Alcohol and Drug Abuse Patient Records regulations: The Federal rules restrict any use of the information to criminally investigate or prosecute any alcohol or drug abuse patient.[facility] the event this information is protected by the Federal Confidentiality of Alcohol and Drug Abuse Patient Records regulations: The Federal rules restrict any use of the information to criminally investigate or prosecute any alcohol or drug abuse patient.[facility]In the event this information is protected by the Federal Confidentiality of Alcohol and Drug Abuse Patient Records regulations: The Federal rules restrict any use of the information to criminally investigate or prosecute any alcohol or drug abuse patient.[facility]In the event this information is protected by the Federal Confidentiality of Alcohol and Drug Abuse Patient Records regulations: The Federal rules restrict any use of the information to criminally investigate or prosecute any alcohol or drug abuse patient.[facility]In the event this information is protected by the Federal Confidentiality of Alcohol and Drug Abuse Patient Records regulations: The Federal rules restrict any use of the information to criminally investigate or prosecute any alcohol or drug abuse patient.[facility] HospitalIn the event this information is protected by the Federal Confidentiality of Alcohol and Drug Abuse Patient Records regulations: The Federal rules restrict any use of the information to criminally investigate or prosecute any alcohol or drug abuse patient.[facility] HospitalIn the event this information is protected by the Federal Confidentiality of Alcohol and Drug Abuse Patient Records regulations: The Federal rules restrict any use of the information to criminally investigate or prosecute any alcohol or drug abuse patient.[facility] HospitalIn the event this information is protected by the Federal Confidentiality of Alcohol and Drug Abuse Patient Records regulations: The Federal rules restrict any use of the information to criminally investigate or prosecute any alcohol or drug abuse patient.[facility] HospitalIn the event this information is protected by the Federal Confidentiality of Alcohol and Drug Abuse Patient Records regulations: The Federal rules restrict any use of the information to criminally investigate or prosecute any alcohol or drug abuse patient.[facility] HospitalIn the event this information is protected by the Federal Confidentiality of Alcohol and Drug Abuse Patient Records regulations: The Federal rules restrict any use of the information to criminally investigate or prosecute any alcohol or drug abuse patient.[facility] HospitalIn the event this information is protected by the Federal Confidentiality of Alcohol and Drug Abuse Patient Records regulations: The Federal rules restrict any use of the information to criminally investigate or prosecute any alcohol or drug abuse patient.[facility] HospitalIn the event this information is protected by the Federal Confidentiality of Alcohol and Drug Abuse Patient Records regulations: The Federal rules restrict any use of the information to criminally investigate or prosecute any alcohol or drug abuse patient.[facility] HospitalIn the event this information is protected by the Federal Confidentiality of Alcohol and Drug Abuse Patient Records regulations: The Federal rules restrict any use of the information to criminally investigate or prosecute any alcohol or drug abuse patient.[facility] HospitalIn the event this information is protected by the Federal Confidentiality of Alcohol and Drug Abuse Patient Records regulations: The Federal rules restrict any use of the information to criminally investigate or prosecute any alcohol or drug abuse patient.[facility] HospitalIn the event this information is protected by the Federal Confidentiality of Alcohol and Drug Abuse Patient Records regulations: The Federal rules restrict any use of the information to criminally investigate or prosecute any alcohol or drug abuse patient.[facility] HospitalIn the event this information is protected by the Federal Confidentiality of Alcohol and Drug Abuse Patient Records regulations: The Federal rules restrict any use of the information to criminally investigate or prosecute any alcohol or drug abuse patient.[facility] Care Teams (unrecognized sec tion and content) Repairer Shoe Sticks Relationship Specialty Start Date End Date Perry Olivas MD [address] [place], [place] [id number] PCP - General Internal Medicine 10/24/16 Paul Lopez [address] [place] [address] Physician Ophthalmology 04/24/16 Repairer Shoe Sticks Relationship Specialty Start Date End Date Perry Olivas MD [address] [place], [place] [id number] PCP - General Internal Medicine 10/24/16 Paul Lopez [address] [place], [place] [id number] Physician Ophthalmology 04/24/16 Repairer Shoe Sticks Relationship Specialty Start Date End Date Perry Olivas MD [address] [place] [address] PCP - General Internal Medicine 10/24/16 Paul Lopez [address] [place] [address] Physician Ophthalmology 04/24/16 Repairer Shoe Sticks Relationship Specialty Start Date End Date Perry Olivas MD [address] [facility] [place] [address] PCP - General Internal Medicine 10/24/16 Paul Lopez [employer] [place] [address] Physician Ophthalmology 04/24/16 Repairer Shoe Sticks Relationship Specialty Start Date End Date Perry Olivas MD [address] [place] [address] PCP - General Internal Medicine 10/24/16 Paul Lopez [employer] [place] [address] Physician Ophthalmology 04/24/16 Repairer Shoe Sticks Relationship Specialty Start Date End Date Perry Olivas MD [address] [facility] [place] [address] PCP - General Internal Medicine 10/24/16 Paul Lopez [employer] [place] [address] Physician Ophthalmology 04/24/16 Repairer Shoe Sticks Relationship Specialty Start Date End Date Perry Olivas MD [address] [facility] [place] [address] PCP - General Internal Medicine 10/24/16 Paul Lopez [employer] [place] [address] Physician Ophthalmology 04/24/16 Repairer Shoe Sticks Relationship Specialty Start Date End Date Perry Olivas MD [address] [place], [place] [id number] PCP - General Internal Medicine 03/13/22 Jose Ibarra MD [address] [address] Consulting Physician Cardiovascular Disease 03/13/22 Repairer Shoe Sticks Relationship Specialty Start Date End Date Perry Olivas MD [address] [place] [phone] PCP - General Internal Medicine 07/02/17 [place] [address] [place] [phone] PCP - Referring 1 Cardiovascular Disease 01/06/19 Jalil Still MD [address] [phone] PCP - Referring 2 Clinical Cardiac Electrophysiology 01/06/19 [place] [address] [place] [phone] Cardiovascular Disease 07/03/17 Repairer Shoe Sticks Relationship Specialty Start Date End Date Perry Olivas MD [address] [place], [place] [id number] PCP - General Internal Medicine 10/24/16 Paul Lopez [address] [place], [place] [phone] Physician Ophthalmology 04/24/16 Repairer Shoe Sticks Relationship Specialty Start Date End Date Perry Olivas MD [address] [place] [address] PCP - General Internal Medicine 10/24/16 Paul Lopez [address] [facility] [place] [address] Physician Ophthalmology 04/24/16 Repairer Shoe Sticks Relationship Specialty Start Date End Date Perry Olivas MD [address] [place] [address] PCP - General Internal Medicine 10/24/16 Paul Lopez [address] [place] [address] Physician Ophthalmology 04/24/16 Repairer Shoe Sticks Relationship Specialty Start Date End Date Perry Olivas MD [address] [place] [address] PCP - General Internal Medicine 10/24/16 Paul Lopez [employer] [place] [address] Physician Ophthalmology 04/24/16 Repairer Shoe Sticks Relationship Specialty Start Date End Date Perry Olivas MD [address] [place] [address] PCP - General Internal Medicine 10/24/16 Paul Lopez [employer] [place] [address] Physician Ophthalmology 04/24/16 Repairer Shoe Sticks Relationship Specialty Start Date End Date Perry Olivas MD [address] [facility] [place] [address] PCP - General Internal Medicine 10/24/16 Paul Lopez [employer] [place] [address] Physician Ophthalmology 04/24/16 Repairer Shoe Sticks Relationship Specialty Start Date End Date Perry Olivas MD [address] [place] [phone] PCP - General Internal Medicine 07/02/17 Jose Ibarra MD [address] [place] [address] PCP - Referring 1 Cardiovascular Disease 01/06/19 Jalil Still MD [address] [place] [phone] PCP - Referring 2 Clinical Cardiac Electrophysiology 01/06/19 Jose Ibarra MD [address] [place] [address] Cardiovascular Disease 07/03/17 Repairer Shoe Sticks Relationship Specialty Start Date End Date Perry Olivas MD [address] [place] [address] PCP - General Internal Medicine 10/24/16 Paul Lopez [address] [place] [address] Physician Ophthalmology 04/24/16 Repairer Shoe Sticks Relationship Specialty Start Date End Date Perry Olivas MD [address] [place] [address] PCP - General Internal Medicine 10/24/16 Paul Lopez [address] [place] [address] Physician Ophthalmology 04/24/16 Repairer Shoe Sticks Relationship Specialty Start Date End Date Perry Olivas MD [address] [place] [address] PCP - General Internal Medicine 10/24/16 Paul Lopez [address] [place], [place] [address] Physician Ophthalmology 04/24/16 Repairer Shoe Sticks Relationship Specialty Start Date End Date Perry Olivas MD [address] [place], [place] [address]37[address] PCP - General Internal Medicine 10/24/16 Paul Lopez [address] [place] [address] Physician Ophthalmology 04/24/16 Repairer Shoe Sticks Relationship Specialty Start Date End Date Perry Olivas MD [address] [place], [place] [address] PCP - General Internal Medicine 10/24/16 Paul Lopez [address] [place] [address] Physician Ophthalmology 04/24/16 Repairer Shoe Sticks Relationship Specialty Start Date End Date Perry Olivas MD [address] [place], [place] [address]381 PCP - General Internal Medicine 10/24/16 Paul Lopez [address] [place] [address] Physician Ophthalmology 04/24/16 Repairer Shoe Sticks Relationship Specialty Start Date End Date Perry Oliavs MD [address] [place], [place] [address] PCP - General Internal Medicine 10/24/16 Paul Lopez [address] [place], [place] 8[address]21 Physician Ophthalmology 04/24/16 Repairer Shoe Sticks Relationship Specialty Start Date End Date Perry Olivas MD [address] [place], [place] [address]141 PCP - General Internal Medicine 10/24/16 Paul Lopez [address] [place], [place] 568541 Physician Ophthalmology 04/24/16 Repairer Shoe Sticks Relationship Specialty Start Date End Date Perry Olivas MD [address] [place], [place] 532451 PCP - General Internal Medicine 10/24/16 Paul Lopez MD [address] [place] [address] Physician Ophthalmology 04/24/16 Repairer Shoe Sticks Relationship Specialty Start Date End Date Perry Olivas MD [address] [place], [place] [address] PCP - General Internal Medicine 10/24/16 Paul Lopez MD [address] [place], [place] [address] Physician Ophthalmology 04/24/16 Repairer Shoe Sticks Relationship Specialty Start Date End Date Perry Olivas MD [address] [place], [place] [id number] PCP - General Internal Medicine 10/24/16 Paul Lopez MD [address] [place], [place] [address] Physician Ophthalmology 04/24/16 Scheduled Active and Recently Administ ered Medications (unrecognized section and content) PRN Medication Order 03/13/2022 03/14/2022 03/15/2022 acetaminophen (TYLENOL) tablet 650 mg 650 mg, Oral, Every 4 hours PRN, mild pain, fever 100.4 F or greater, headaches, Starting on Sat03/13/22 at 2006 melatonin tablet 3 mg 3 mg, Oral, Nightly PRN, Sleep, Starting on Sat03/13/22 at 2006 2324 (Given - Provider: Dianne Thornton, RN) 0036 (Given - Provider: Margi Fabian, SULLY) ondansetron (ZOFRAN) injection 4 mg(Linked Group 2) 4 mg, Intravenous, Every 6 hours PRN, nausea, vomiting, Starting on Sat03/13/22 at 2006, Use oral route first, if tolerated. ondansetron (ZOFRAN-ODT) disintegrating tablet 4 mg(Linked Group 2) 4 mg, Oral, Every 6 hours PRN, nausea, vomiting, Starting on Sat03/13/22 at 2006, Use oral route first, if tolerated. Formulation requires tablet remain in sealed package until immediately prior to dose being administered. sodium chloride (PF) (NS) flush 5 mL(Linked Group 3) 5 mL, Intravenous, As needed, line care, Starting on Sat03/13/22 at 1331 sodium chloride (PF) (NS) flush 5 mL(Linked Group 1) 5 mL, Intravenous, As needed, line care, Starting on Sat03/13/22 at 2006 sodium chloride 0.9% (NS)(Linked Group 3) 0-150 mL/hr, Intravenous, As needed, To flush line after IV infusions when no maintenance IV ordered or a compatibility issue. Infuse 20ml at the same rate as the secondary infusion, Starting on Sat03/13/22 at 1331, Run as Primary IV. NOT intended for KVO. sodium chloride 0.9% (NS)(Linked Group 1) 0-150 mL/hr, Intravenous, As needed, To flush line after IV infusions when no maintenance IV ordered or a compatibility issue. Infuse 20ml at the same rate as the secondary infusion, Starting on Sat03/13/22 at 2006, Run as Primary IV. NOT intended for KVO. Linked Groups Order Group 1: Saline lock IV (CANCELED) Routine, Continuous, Starting on Sat03/13/22 at 2007, Until Specified And sodium chloride (PF) (NS) flush 5 mLJump to med 5 mL, Intravenous, As needed, line care, Starting on Sat03/13/22 at 2006 And sodium chloride (PF) (NS) flush 5 mLJump to med 5 mL, Intravenous, Every 8 hours scheduled, First dose on Sat03/13/22 at 2200
Saline lock
And sodium chloride 0.9% (NS)Jump to med 0-150 mL/hr, Intravenous, As needed, To flush line after IV infusions when no maintenance IV ordered or a compatibility issue. Infuse 20ml at the same rate as the secondary infusion, Starting on Sat03/13/22 at 2006
Run as Primary IV. NOT intended for KVO.
Group 2: ondansetron (ZOFRAN-ODT) disintegrating tablet 4 mgJump to med 4 mg, Oral, Every 6 hours PRN, nausea, vomiting, Starting on Sat03/13/22 at 2006
Use oral route first, if tolerated. Formulation requires tablet remain in sealed package until immediately prior to dose being administered.
Or ondansetron (ZOFRAN) injection 4 mgJump to med 4 mg, Intravenous, Every 6 hours PRN, nausea, vomiting, Starting on Sat03/13/22 at 2006
Use oral route first, if tolerated.
Group 3: Insert peripheral IV (COMPLETED) ARISTEO, Once, On Sat03/13/22 at 1335, For 1 occurrence And Saline lock IV (CANCELED) ARISTEO, Once, On Sat03/13/22 at 1335, For 1 occurrence And sodium chloride (PF) (NS) flush 5 mLJump to med 5 mL, Intravenous, As needed, line care, Starting on Sat03/13/22 at 1331 And sodium chloride 0.9% (NS)Jump to med 0-150 mL/hr, Intravenous, As needed, To flush line after IV infusions when no maintenance IV ordered or a compatibility issue. Infuse 20ml at the same rate as the secondary infusion, Starting on Sat03/13/22 at 1331
Run as Primary IV. NOT intended for O.
FOR RECORDS PERTAINING TO PATIENTS WHO ARE OR HAVE BEEN ENROLLED IN A CHEMICAL DEPENDENCY/SUBSTANCEABUSE PROGRAM, SOME INFORMATION MAY BE OMITTED. This clinical summary was aggregated from multiple sources. Caution should be exercised in using it in the provision of clinical care. This summary normalizes information from multiple sources, and as a consequence, information in this document may materially change the coding, format and clinical context of patient data. In addition, data may be omitted in some cases. CLINICAL DECISIONS SHOULD BE BASED ON THE PRIMARY CLINICAL RECORDS. [employer] [facility]. provides no warranty or guarantee of the accuracy or completeness of information in this document.
[2023-07-23 13:07] LABS: Hematocrit 40.7 % (40-54); Hemoglobin 12.9 g/dL (13.0-16.5); Mean Corp Hgb Conc 31.7 g/dL (32-36); Mean Corpuscular Hgb 31.5 pg (27.0-32.0); Mean Corpuscular Volume 99.5 fL (80-94); Mean Platelet Vol. 10.9 fl (6.2-12.0); Platelet Count 130 K/mm3 (150-450); RBC Distribution Width CV 13.1 % (11.6-14.6); RBC Distribution Width SD 48.1 fl (35.1-43.9); Red Blood Count 4.09 M/mm3 (4.6-6.2); White Blood Count 4.5 K/mm3 (4.4-11.0)
[2023-07-23 13:19] LABS: Protein:Creat Ratio 983 mg/g CRE (0-200)
[2023-07-23 13:55] LABS: BUN 77 mg/dL (7-18); BUN/Creat Ratio 16.6 RATIO (10-20); Calcium,Total 10.3 mg/dL (8.5-10.1); Chloride 105 mmol/L (98-107); Creatinine, Serum 4.63 mg/dL (0.70-1.30); EST Glomerular Filtration Rate 13 mL/min (>60); Est Glom Filt Rate - Afr Amer 16 mL/min (>60); Glucose 122 mg/dL (74-106); Phosphorus 5.3 mg/dL (2.5-4.9); Sodium Level 136 mmol/L (136-145)
[2023-07-23 13:57] LABS: Vitamin D,25 Hydroxy 62.6 ng/mL
== END | disposition home or self-care (01) ==
LOC: LAB 12:07
PROVIDERS: PCP Internal Medicine; Referring Provider Internal Medicine Nephrology; Visit Provider Internal Medicine Nephrology
DX: N18.4 Chronic kidney disease, stage 4 (severe) (principal)
CPT/HCPCS: 36415; 80069; 82306; 82570; 83970; 84156; 85027

== ENCOUNTER → 2023-08-15 | Outpatient (CLI) | payer MEDICARE, SELFPAY ==
--- NOTE | 2023-08-15 12:30 | RAD_ITS ---
INDICATION: SOB, wheezing EXAMINATION/TECHNIQUE: X-RAY - XR Chest 2 Views COMPARISON: 05/29/2022 FINDINGS: LINES/DEVICES: Pacemaker leads unchanged. LUNGS: No consolidation. No pneumothorax. MEDIASTINUM: Aorta is atherosclerotic. CARDIAC SILHOUETTE: Enlarged. Stable size. BONES AND SOFT TISSUES: No acute abnormalities. Degenerative changes of the dorsal spine. RAD/Chest PA and Lateral IMPRESSION: No evidence of active intrathoracic disease. Stable cardiomegaly. Electronically Signed: Marian William MD at 7:50 EST ,
[2023-08-15 13:50] LABS: Absolute Lymphocyte Count 1.07 X10^3/uL (0.83-4.51); Absolute Neutrophil Count 6.4 X10^3/uL (2.0-7.7); Basophil# 0.04 X10^3/uL; Basophil% 0.5 % (0-1); Eosinophil# 0.29 X10^3/uL; Eosinophils% 3.4 % (0-5); Hematocrit 39.2 % (40-54); Lymphocyte # 1.07 X10^3/ul (0.83-4.51); Lymphocyte % 12.6 % (19-41); Mean Corp Hgb Conc 30.6 g/dL (32-36); Mean Corpuscular Hgb 31.8 pg (27.0-32.0); Mean Platelet Vol. 11.5 fl (6.2-12.0); Monocyte# 0.69 X10^3/uL; Monocyte% 8.1 % (0-10); NRBC Flagged by Analyzer 0 % (0-5); Neutrophil # 6.37 X10^3/uL (2.7-7.7); Platelet Count 127 K/mm3 (150-450); RBC Distribution Width CV 13.2 % (11.6-14.6); RBC Distribution Width SD 50.5 fl (35.1-43.9); Red Blood Count 3.77 M/mm3 (4.6-6.2); White Blood Count 8.5 K/mm3 (4.4-11.0)
[2023-08-15 14:05] LABS: BNP,B-Type NATRIURETIC PEPTIDE 921.7 pg/mL (0-100)
[2023-08-15 14:06] LABS: Anion Gap 7 (5-15); BUN 57 mg/dL (7-18); Calcium,Total 10.2 mg/dL (8.5-10.1); Chloride 111 mmol/L (98-107); Creatinine, Serum 4.07 mg/dL (0.70-1.30); EST Glomerular Filtration Rate 15 mL/min (>60); Est Glom Filt Rate - Afr Amer 18 mL/min (>60); Glucose 121 mg/dL (74-106); Potassium 4.8 mmol/L (3.5-5.1); Sodium Level 140 mmol/L (136-145)
== END | disposition home or self-care (01) ==
LOC: RAD 12:28
PROVIDERS: PCP Internal Medicine; Referring Provider Nurse Practitioner Family; Visit Provider Nurse Practitioner Family
DX: I48.92 Unspecified atrial flutter (principal); I10 Essential (primary) hypertension; R06.00 Dyspnea, unspecified; Z95.5 Presence of coronary angioplasty implant and graft; Z95.810 Presence of automatic (implantable) cardiac defibrillator; E78.00 Pure hypercholesterolemia, unspecified
CPT/HCPCS: 36415; 71046; 80048; 83880; 85025

== ENCOUNTER → 2023-08-28 | Outpatient (CLI) | payer MEDICARE, SELFPAY ==
[2023-08-28 11:27] LABS: Albumin, Serum 3.8 g/dL (3.2-5.0); BUN 48 mg/dL (7-18); BUN/Creat Ratio 13.9 RATIO (10-20); Chloride 106 mmol/L (98-107); Creatinine, Serum 3.46 mg/dL (0.70-1.30); EST Glomerular Filtration Rate 18 mL/min (>60); Est Glom Filt Rate - Afr Amer 22 mL/min (>60); Glucose 125 mg/dL (74-106); Phosphorus 2.8 mg/dL (2.5-4.9); Potassium 3.8 mmol/L (3.5-5.1); Sodium Level 138 mmol/L (136-145)
== END | disposition home or self-care (01) ==
LOC: LAB 08:32
PROVIDERS: PCP Internal Medicine; Referring Provider Internal Medicine Nephrology; Visit Provider Internal Medicine Nephrology
DX: N18.4 Chronic kidney disease, stage 4 (severe) (principal)
CPT/HCPCS: 36415; 80069

== ENCOUNTER → 2023-09-17 | Outpatient (CLI) | payer MEDICARE, SELFPAY ==
--- NOTE | 2023-09-17 12:59 | ECHOCS_ITS ---
Reason For Study: DYSPNEA Procedure This was a 2D Doppler, Color Flow transthoracic echocardiogram. The study was technically limited. The study was technically difficult. Contrast injection was performed. Due to poor accoustic windows/body habitus. Exam performed in department. Left Ventricle Normal LV size. Mild concentric left ventricular hypertrophy. The left ventricular ejection fraction is 30 %. [place] : Akinetic. The rest of the wall segments are hypokinetic. Right Ventricle Normal RV size. ICD or pacer leads identified within the right ventricle. Normal systolic function. Atria Normal left atrium. The right atrium is severely enlarged. Mitral Valve Normal mitral valve. Tricuspid Valve Normal tricuspid valve. Pulmonic Valve The pulmonic valve is not well visualized. Great Vessels Normal aortic root. The pulmonary is not well visualized. Inferior vena cava collapse with respiration. Pericardium/Pleural No pericardial effusion. Medication 22 gauge I.V. with prn adaptor inserted into right arm. Diluted definity 3.0ml given slow IV push to enhance endocardial definition. MMode/2D Measurements & Calculations LVIDd: 4.0 cm IVSd: 1.2 cm LVOT diam: 2.2 cm LVIDs: 3.0 cm LVPWd: 1.2 cm LVOT area: 3.9 cm2 FS: 25.2 % Ao root diam: 3.0 cm LAV(MOD-bp): 64.9 ml LA A4 area: 21.0 cm2 LA dimension: 5.0 cm LAV(MOD-bp) Indexed: 32.6 ml/m2 LAV(MOD-sp2): 68.5 ml LAV(MOD-sp4): 60.3 ml TAPSE: 1.3 cm RA A4 area: 40.9 cm2 Time Measurements MV dec time: 0.18 sec Doppler Measurements & Calculations MV E max jimmie: 87.0 cm/sec Lat Peak E' Jimmie: 3.8 cm/sec Med Peak E' Jimmie: 4.4 cm/sec MV A max jimmie: 28.5 cm/sec E/E' lat: 23.1 E/E' med: 19.6 MV E/A: 3.0 MV V2 max: 102.7 cm/sec MV P1/2t max jimmie: 104.4 cm/sec Ao V2 max: 196.7 cm/sec MV max P.2 mmHg MV P1/2t: 69.6 msec Ao max P.5 mmHg MV V2 mean: 45.1 cm/sec MV dec slope: 439.6 cm/sec2 Ao V2 mean: 136.5 cm/sec MV mean P.1 mmHg Ao mean P.4 mmHg MV V2 VTI: 23.4 cm MVA(P1/2t): 3.2 cm2 Ao V2 VTI: 33.7 cm MVA(VTI): 2.0 cm2 AV (velocity ratio): 0.36 МАРИНА(I,D): 1.4 cm2 МАРИНА(V,D): 1.2 cm2 LV V1 max: 61.8 cm/sec SV(LVOT): 46.9 ml PA V2 max: 53.1 cm/sec LV V1 max P.5 mmHg PA V2 mean: 40.4 cm/sec LV V1 mean P.80 mmHg LV V1 mean: 41.4 cm/sec LV V1 VTI: 12.0 cm ECHO/Echo Complete W/ Contrast Interpretation Summary Normal LV size. Mild concentric left ventricular hypertrophy. The left ventricular ejection fraction is 30 %. Compared to previous study, the left ventricular systolic function is the same. . Ordering Physician: Ravin Douglas Referring Physician: Perry Olivas Performed By: Vera Gaytan RDCS, RVT
== END | disposition home or self-care (01) ==
LOC: CVS 12:57
PROVIDERS: PCP Internal Medicine; Referring Provider Nurse Practitioner Family; Visit Provider Nurse Practitioner Family
DX: R06.02 Shortness of breath (principal); I27.21 Secondary pulmonary arterial hypertension
CPT/HCPCS: 93306; Q9957; A4216; C8929

== ENCOUNTER 2023-10-18 18:25 | Observation (INO) | payer OTHER, SELFPAY ==
[2023-10-18 18:26] VITALS: BP 125/74; PULSE 70; RESP 16; TEMP 36; O2SAT 94; O2SAT 98
--- NOTE | 2023-10-18 18:47 | EKG12_ITS ---
Test Reason : SOB Blood Pressure : / mmHG Vent. Rate : 070 BPM Atrial Rate : 388 BPM P-R Int : 000 ms QRS Dur : 160 ms QT Int : 492 ms P-R-T Axes : 079 174 025 degrees QTc Int : 531 ms Ventricular-paced rhythm Abnormal ECG Confirmed by Bob Dixon ([id number]), newspaper photo editor EDGARDO FREIRE ([id number]) on 10/21/2023 2:20:53 PM Referred By: Barrera Thorpe Confirmed By:Bob Dixon
[2023-10-18 19:32] VITALS: BMI 30.9
--- NOTE | 2023-10-18 19:34 | EDS_ITS ---
HPI History of Present Illness Chief Complaint: Weakness Informant: patient, spouse/S.O. and EMS Narrative Narrative: 87-year-old male lives at home with his . Apparently had been doing well during the day and they decided they were going to go out to dinner per their usual routine. There living space apparently is be below the garage so they were going up some stairs when all of a sudden he could not move his legs. He is not sure why he could not move his legs and she is not either. She thought maybe he was short of breath but he states he was not. She states that after a while of holding him she did not think she could hold them up anymore so she went and called the ambulance. He was able to stand up and eventually refused transportation. He then called the ambulance again stating that he thinks he was going to get short of breath. states this is never happened before she notes that the legs are not more swollen than they have been and that he has chronic wounds. They deny any new medications. Patient denies any speech or arm symptoms. No headache. He did not fall. [facility] Medical History Acute on chronic combined systolic (congestive) and diastolic (congestive) heart failure Atherosclerosis of coronary artery of [place] heart without angina pectoris Bilateral lower extremity edema Central stenosis of spinal canal CHF (congestive heart failure) Chronic kidney disease (CKD) Contusion of rib on left side Debility Dehydration Elevated troponin End of battery life of cardiac resynchronization therapy defibrillator (MULTI DISCIPLINED LANGUAGE ANALYST-D) Essential (primary) hypertension Hyperlipidemia Ischemic cardiomyopathy Left bundle branch block (09/11/18) Lumbar spondylosis 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 Overweight Paroxysmal atrial flutter Phlebitis alone Secondary pulmonary arterial hypertension Syncope Transient hypotension Type 2 diabetes mellitus without complications Weakness Home Medications aspirin 81 mg chewable tablet 81 mg PO DAILY 06/30/17 [History Last Taken 05/20/22] sertraline 50 mg tablet 50 mg PO DAILY #60 tabs 11/13/18 [Rx Last Taken 05/21/22] cholecalciferol (vitamin D3) 125 mcg (5,000 unit) tablet 125 mcg PO DAILY 01/05/21 [History Last Taken 05/20/22] clobetasol 0.05 % scalp solution 1 applic topical QAM AND QPM PRN LESION 01/05/21 [History Last Taken 05/20/22] rosuvastatin 10 mg tablet 10 mg PO DAILY 01/05/21 [History Last Taken 05/21/22] vitamins A,C,U-ozzw-jctcxr 4,296 mcg-226 mg-90 mg capsule (PreserVision AREDS) 1 cap PO BID 01/05/21 [History Last Taken 05/21/22] nitroglycerin 0.4 mg sublingual tablet 0.4 mg sublingual Q5-15M PRN Cardiac/Chest Pain #25 tabs 01/15/23 [Rx Last Taken Unknown] lidocaine 5 % topical patch 1 patch topical DAILY #15 ea 02/16/23 [Rx Last Taken Unknown] spironolactone 25 mg tablet 25 mg PO DAILY #60 tabs 04/11/23 [Rx Last Taken Unknown] Handicap Plaquard #1 ea 06/03/23 [Rx Last Taken Unknown] metoprolol succinate 25 mg tablet,extended release 24 hr 25 mg PO DAILY Dose was decreased #90 tabs 07/30/23 [Rx Last Taken Unknown] albuterol sulfate 90 mcg/actuation aerosol inhaler 2 puff inhalation Q4-6H PRN shortness of breath or wheezing #8.5 grams 08/15/23 [Rx Last Taken Unknown] furosemide 40 mg tablet (Lasix) 80 mg PO DAILY 08/15/23 [History Last Taken Unknown] apixaban 2.5 mg tablet (Eliquis) 2.5 mg PO BID #180 tabs 08/26/23 [Rx Last Taken Unknown] isosorbide mononitrate 60 mg tablet,extended release 24 hr 60 mg PO DAILY #90 tabs 09/02/23 [Rx Last Taken Unknown] folic acid 1 mg tablet 1 mg PO QDAY #90 tabs 10/17/23 [Rx Last Taken Unknown] nystatin 100,000 unit/gram topical powder 0 applic topical TID 10/18/23 [History Last Taken Unknown] Allergy/AdvReac Type Severity Reaction Status Date / Time clarithromycin [From Biaxin] Allergy PT UNSURE Verified 10/18/23 18:39 OF REACTION quinapril Allergy Angioedema Verified 10/18/23 18:39 Hxvrimn-LIM-HpX Reductase Allergy Hives and Verified 10/18/23 18:39 Inhibitor myalgias [Tfpsgqr-Xmn-Xyx Reductase Inhibitor] valsartan [From Diovan] Allergy PT UNSURE Verified 10/18/23 18:39 OF REACTION ezetimibe [From Zetia] AdvReac diarrhea Verified 10/18/23 18:39 simvastatin [From Vytorin] AdvReac PT UNSURE Verified 10/18/23 18:39 OF REACTION Family History Mother Diabetes Sister Cancer pancreatic Other Bilateral lower extremity edema Surgical History History of cardioversion (07/11/20) History of coronary artery stent placement (08/01/17) Presence of automatic implantable cardioverter-defibrillator (07/05/17) Presence of biventricular implantable cardioverter-defibrillator (ICD) (01/08/19) Social History Smoking Status: Former smoker how long ago did patient quit smoking: May 1988 alcohol intake: current alcohol intake frequency: holidays/special occasions only caffeine: No ROS ROS ED Constitutional Constitutional ED: Denies chills, fever(s) or weight loss Eyes Eyes: Denies change in vision or diplopia ENT ENT ED: Denies ear pain, rhinorrhea or sore throat Cardiovascular Cardiovascular: Denies chest pain, orthopnea, palpitations or racing heartbeat Respiratory/Chest Respiratory/Chest: Denies cough, dyspnea or orthopnea Gastrointestinal Gastrointestinal: Denies abdominal pain, diarrhea, nausea or vomiting Genitourinary Genitourinary ED: Denies dysuria, hematuria or urinary frequency Musculoskeletal Musculoskeletal: Denies arthralgias or myalgias Integumentary Denies abscess or rash Neurologic Neurologic: Denies headache(s) or weakness Psychiatric Psychiatric: Denies anxiety, depression, suicidal ideation or suicidal thoughts Endocrine Endocrinology: Denies polydipsia, polyphagia or polyuria Allergic/Immunologic Allergic/Immunologic ED: Denies mouth swelling, tongue swelling or urticaria EXAM Physical Exam Const Vital Signs: 10/18/23 18:26 10/18/23 18:26 10/18/23 19:36 Temperature 96.8 F L 96.8 F L Temperature Source Temporal Temporal Pulse Rate 70 70 Respiratory Rate 16 16 Respiratory Effort Normal Short of Breath Respiratory Pattern Normal Blood Pressure 125/74 H 125/74 H Blood Pressure Mean 91 91 Pulse Ox 98 98 Oxygen Delivery Method Room Air Room Air Oxygen Flow Rate (L/min) 10/18/23 19:40 10/18/23 19:40 10/18/23 21:51 Temperature Temperature Source Pulse Rate 68 Respiratory Rate 19 H Respiratory Effort Respiratory Pattern Blood Pressure 128/77 H Blood Pressure Mean 94 Pulse Ox 88 98 98 Oxygen Delivery Method Room Air Nasal Cannula Nasal Cannula Oxygen Flow Rate (L/min) 2 2 10/18/23 22:16 Temperature Temperature Source Pulse Rate 72 Respiratory Rate 17 Respiratory Effort Respiratory Pattern Blood Pressure Blood Pressure Mean Pulse Ox 94 Oxygen Delivery Method Room Air Oxygen Flow Rate (L/min) Positive well nourished, well developed and obese General Appearance ED: well developed Nutritional Appearance: obese HEENT Reports normocephalic, head/scalp atraumatic and moist mucous membranes Eyes PERRL and EOMs intact bilaterally Neck no lymphadenopathy, supple and no JVD Resp normal respiratory effort and clear to auscultation bilaterally Cardio regular rate, regular rhythm and no murmurs GI normal to inspection, nondistended, normoactive bowel sounds and non-tender Palpation: soft Back/Spine no CVA tenderness and normal ROM Extremity Extremity Narrative: Chronic venous stasis changes of the lower extremity with wounds that do not appear secondarily acutely infected General Extremety ED: Yes edema General Extremity: edema bilateral lower extremity Details: moderate Neuro oriented x3 and CN's II-XII intact bilaterally Sensorium / Orientation: alert Motor Exam: strength 5/5 throughout Psych mental status grossly normal Mood & Affect: Negative for depressed or tearful Skin no rashes or lesions noted and no wounds MDM MDM MDM Narrative Medical decision making narrative: EKG is a ventricular paced rhythm at [address] of the brain shows no acute findings. My independent interpretation of the chest x-ray is small left pleural effusion. White count 5.3 hemoglobin 13.2 and a platelet count of 122. BMP shows a creatinine of 3.11 with a BUN of 37 this appears at baseline for the patient. Glucose of 144. Troponin is 99. Delta troponin is obtained and is again 99. Patient was placed on supplemental oxygen for reported pulse ox 88%. In discussing with nursing is unclear what his waveform appeared like. I turned the patient's oxygen off and he is 94 to 97% on room air. Patient was ambulated here in the department. He states that he did very poorly and he does not feel comfortable going home. agrees that he should stay in the hospital. They are of the understanding that I have no specific diagnosis other than weakness as the rest of his evaluation seems at baseline. They understanding he will be admitted on an observation basis and may be referred to rehab or [facility] tomorrow. History & Record Review Discussion w/independent historian: Patient Lab Data Attestation: I reviewed the patient's lab results. Labs: Laboratory Results - last 24 hr 10/18/23 10/18/23 10/18/23 19:34 20:13 21:30 WBC 5.3 RBC 4.07 L Hgb 13.2 Hct 42.3 MCV 103.9 H MCH 32.4 H MCHC 31.2 L RDW Std Deviation 57.1 H RDW Coeff of Roger 14.9 H Plt Count 122 L MPV 11.0 Immature Gran % (Auto) 0.200 Neut % (Auto) 77.4 H Lymph % (Auto) 11.0 L [place] % (Auto) 9.5 Eos % (Auto) 1.5 Baso % (Auto) 0.4 Absolute Neuts (auto) 4.1 Absolute Lymphs (auto) 0.58 L Nucleated RBC % 0 Differential Comment SEE COMMENT Platelet Estimate SLT DEC RBC Morphology N CHROM Anisocytosis 1+ Macrocytosis 1+ Sodium 140 Potassium 3.4 L Chloride 103 Carbon Dioxide 27.0 Anion Gap 10 BUN 37 H Creatinine 3.11 H Estim Creat Clear Calc 19.04 Est GFR (MDRD) Af Amer 25 L Est GFR (MDRD) Non-Af 20 L BUN/Creatinine Ratio 11.9 Glucose 144 H Calcium 10.1 Troponin I High Sens 99 H 99 H Urine Color Yellow Urine Clarity Clear Urine pH 6.0 Ur Specific [place] 1.010 Urine Protein 30 H Urine Glucose (UA) Normal Urine Ketones Negative Urine Occult Blood 250 H Urine Nitrite Negative Urine Bilirubin Negative Urine Urobilinogen Normal Ur Leukocyte Esterase 25 H Urine RBC 25-50 SEEN Urine WBC 0-5 SEEN Ur Squamous Epith Cells 0 SEEN Urine Bacteria 0 SEEN Urine Mucus 0 SEEN Radiography Diagnostic Testing: Clinical Impression(s) from Imaging Studies Chest X-Ray 10/18/23 19:40 IMPRESSION: Small left pleural effusion versus atelectasis. No acute consolidative process. Electronically Signed: Raúl Garcia MD at 20:30 EDT , Brain CT 10/18/23 20:37 IMPRESSION: Volume loss with chronic white matter changes. No acute intracranial findings. Electronically Signed: Raúl Garcia MD at 21:35 EDT , EKG Initial EKG: Attestation: I personally reviewed and interpreted this EKG as follows: Comments: Ventricularly paced rhythm at a rate of 70 bpm with underlying atrial fibrillation/flutter Discharge Plan Triage Chief Complaint: Weakness ED Provider: Italo Antoine Dx/Rx/DC Orders Clinical Impression: senior care current use of anticoagulant, Ischemic cardiomyopathy, Chronic kidney disease (CKD), Weakness Instructions: ED Weakness (Uncertain Cause) Prescriptions: No Action sertraline 50 mg tablet 50 mg PO DAILY Qty: 60 3RF rosuvastatin 10 mg tablet 10 mg PO DAILY clobetasol 0.05 % solution 1 applic topical QAM AND QPM PRN (Reason: LESION) cholecalciferol (vitamin D3) 125 mcg (5,000 unit) tablet 125 mcg PO DAILY PreserVision AREDS [id number] fais-xn-hcwl capsule 1 cap PO BID spironolactone 25 mg tablet 25 mg PO DAILY Qty: 60 3RF nitroglycerin 0.4 mg tablet, sublingual 0.4 mg SUBLINGUAL Q5-15M PRN (Reason: Cardiac/Chest Pain) Qty: 25 3RF furosemide [Lasix] 40 mg tablet 80 mg PO DAILY albuterol sulfate 90 mcg/actuation HFA aerosol inhaler 2 puff inhalation Q4-6H PRN (Reason: shortness of breath or wheezing) Qty: 8.5 0RF aspirin 81 MG tablet,chewable 81 mg PO DAILY lidocaine 5 % adhesive patch,medicated 1 patch topical DAILY Qty: 15 0RF Rx Instructions: leave on most painful area for up to 12 hrs nystatin 100,000 unit/gram powder 0 applic topical TID (DME) Handicap Plaquard Qty: 1 0RF Dose Instruction: As directed Rx Instructions: LIFETIME DURATION: will need renewal 06/03/2028 metoprolol succinate 25 mg tablet extended release 24 hr 25 mg PO DAILY Qty: 90 3RF Eliquis 2.5 mg tablet 2.5 mg PO BID Qty: 180 3RF isosorbide mononitrate 60 mg tablet extended release 24 hr 60 mg PO DAILY Qty: 90 4RF folic acid 1 mg tablet 1 mg PO QDAY Qty: 90 3RF Primary Care Provider: Perry Olivas Referrals: Perry Olivas MD [Primary Care Provider] - 3-5 Days if not improving
[2023-10-18 19:40] VITALS: O2SAT 88; O2SAT 98
--- NOTE | 2023-10-18 19:40 | RAD_ITS ---
INDICATION: chf EXAMINATION/TECHNIQUE: X-RAY - portable upright AP chest x-ray COMPARISON: 08/15/2023 FINDINGS: LINES/DEVICES: Stable transvenous pacemaker. LUNGS: Minimal blunting left costophrenic angle. No consolidation or vascular congestion. MEDIASTINUM AND CARDIOVASCULAR STRUCTURES: Stable mild cardiomegaly. BONES AND SOFT TISSUES: No acute changes. RAD/Chest 1 View (Portable) IMPRESSION: Small left pleural effusion versus atelectasis. No acute consolidative process. Electronically Signed: Raúl Garcia MD at 20:30 EDT ,
[2023-10-18 19:53] LABS: Absolute Lymphocyte Count 0.58 X10^3/uL (0.83-4.51); Absolute Neutrophil Count 4.1 X10^3/uL (2.0-7.7); Basophil# 0.02 X10^3/uL; Basophil% 0.4 % (0-1); Eosinophil# 0.08 X10^3/uL; Eosinophils% 1.5 % (0-5); Hematocrit 42.3 % (40-54); Hemoglobin 13.2 g/dL (13.0-16.5); Lymphocyte # 0.58 X10^3/ul (0.83-4.51); Mean Corp Hgb Conc 31.2 g/dL (32-36); Mean Corpuscular Hgb 32.4 pg (27.0-32.0); Mean Corpuscular Volume 103.9 fL (80-94); Monocyte% 9.5 % (0-10); NRBC Flagged by Analyzer 0 % (0-5); Neutrophil # 4.06 X10^3/uL (2.7-7.7); Neutrophil % 77.4 % (47-70); POSITIVE DIFFERENTIAL YES; Platelet Count 122 K/mm3 (150-450); RBC Distribution Width CV 14.9 % (11.6-14.6); RBC Distribution Width SD 57.1 fl (35.1-43.9); Red Blood Count 4.07 M/mm3 (4.6-6.2); White Blood Count 5.3 K/mm3 (4.4-11.0)
[2023-10-18 20:13] LABS: Differential Indicated SCAN CRITERIA MET
[2023-10-18 20:17] LABS: Anion Gap 10 (5-15); BUN 37 mg/dL (7-18); BUN/Creat Ratio 11.9 RATIO (10-20); Calcium,Total 10.1 mg/dL (8.5-10.1); Chloride 103 mmol/L (98-107); Creatinine, Serum 3.11 mg/dL (0.70-1.30); EST Glomerular Filtration Rate 20 mL/min (>60); Est Glom Filt Rate - Afr Amer 25 mL/min (>60); Estimated Creatinine Clearance 19.04 ml/min; Glucose 144 mg/dL (74-106); Potassium 3.4 mmol/L (3.5-5.1); Sodium Level 140 mmol/L (136-145); Troponin-I HS 99 pg/mL (3.0-78.0)
[2023-10-18 20:17] LABS: Bacteria 0 SEEN /hpf (None Seen); Mucous, Urine 0 SEEN /hpf (<or=2+); Squamous Epithelial Cells - UA 0 SEEN /hpf (0-5)
[2023-10-18 20:25] LABS: Color, Urine Yellow (Yellow); Glucose, Dipstick Normal (Normal); Ketone-Dipstick Negative (Negative); Leukocyte Esterase-Dipstick 25 /ul (Negative); Nitrite-Dipstick Negative (Negative); Occult Blood-Urine 250 /ul (Negative); Protein-Dipstick 30 mg/dl (Negative); Urine Bilirubin Dipstick Negative (Negative); Urine Clarity Clear (Clear); Urine Urobilinogen Normal (Normal)
--- NOTE | 2023-10-18 20:37 | CT_ITS ---
INDICATION: ams EXAMINATION: CT BRAIN - CT Head or Brain W/O Contrast Injection TECHNIQUE: Multiple axial images were obtained of the head without intravenous contrast. A radiation dose optimization technique was used for this scan. IV Contrast dosage and agent: None. COMPARISON: 04/13/2022 FINDINGS: BRAIN PARENCHYMA: No intra- or extra-axial hemorrhage. No acute territorial infarction. Stable chronic lacunar infarction right cerebellar hemisphere. No intracranial mass or mass effect. There is preservation of the brown/white matter interface. Posterior fossa structures are unremarkable. Stable volume loss with low attenuation of the periventricular white matter typical of chronic small vessel disease. CSF SPACES: Stable. No hydrocephalus. Basal cisterns are patent. CALVARIUM, SKULL BASE, PARANASAL SINUSES AND MASTOID AIR CELLS: Clear. No discrete lytic or blastic abnormalities. CT/Brain/Head without Contrast IMPRESSION: Volume loss with chronic white matter changes. No acute intracranial findings. Electronically Signed: Raúl Garcia MD at 21:35 EDT ,
[2023-10-18 20:38] LABS: Red Blood Cells-Urine 25-50 SEEN /hpf (0-5)
[2023-10-18 20:39] LABS: White Blood Cells 0-5 SEEN /hpf (0-5)
[2023-10-18 20:43] LABS: Anisocytosis 1+; Macrocytosis 1+; Platelet Estimate SLT DEC (ADEQ); Red Cell Morphology N CHROM NORMAL (NORM C&C)
[2023-10-18 21:51] VITALS: BP 128/77; PULSE 68; RESP 19; O2SAT 98
[2023-10-18 22:16] VITALS: PULSE 72; RESP 17; O2SAT 94
--- NOTE | 2023-10-18 22:17 | ED.RN ---
This RN attempted to ambulate the patient. The patient was a little unsteady and moved very slowly with the walker. This RN attempted to get the patient out of the room but the patient stated that he could not go that far.
[2023-10-18 22:18] LABS: Troponin-I HS 99 pg/mL (3.0-78.0)
[2023-10-19] VITALS (9 sets, daily range): BP systolic 103–158; BP diastolic 60–96; PULSE 68–90; RESP 16–20; TEMP 36.3–36.8; O2SAT 94–98; BMI 29.5
--- NOTE | 2023-10-19 | HP.PCM.HOS_ITS ---
HPI - General General Date of Admission: 10/19/23 HPI Narrative MARCOS BECK, is a 87 M who presents to the hospital with weakness and failure to thrive. Apparently they were getting go out to dinner today and he could not climb the steps which was abnormal. On presentation to the hospital lab work is all unremarkable and appears to be at his baseline. Infectious workup was unremarkable with a normal UA and chest x-ray. No obvious etiology was found to explain his weakness in the ER. In discussion with the family she has been noticing that he has been more forgetful recently and he was alert but oriented to person only likely has dementia. 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) Essential (primary) hypertension Hyperlipidemia Ischemic cardiomyopathy Left bundle branch block (09/11/18) Lumbar spondylosis 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 Overweight Paroxysmal atrial flutter Phlebitis alone Secondary pulmonary arterial hypertension Syncope Transient hypotension Type 2 diabetes mellitus without complications Weakness Home Medications aspirin 81 mg chewable tablet 81 mg PO DAILY 06/30/17 [History Last Taken 05/20/22] sertraline 50 mg tablet 50 mg PO DAILY #60 tabs 11/13/18 [Rx Last Taken 05/21/22] cholecalciferol (vitamin D3) 125 mcg (5,000 unit) tablet 125 mcg PO DAILY 01/05/21 [History Last Taken 05/20/22] clobetasol 0.05 % scalp solution 1 applic topical QAM AND QPM PRN LESION 01/05/21 [History Last Taken 05/20/22] rosuvastatin 10 mg tablet 10 mg PO DAILY 01/05/21 [History Last Taken 05/21/22] vitamins A,C,U-klnq-afhuhu 4,296 mcg-226 mg-90 mg capsule (PreserVision AREDS) 1 cap PO BID 01/05/21 [History Last Taken 05/21/22] nitroglycerin 0.4 mg sublingual tablet 0.4 mg sublingual Q5-15M PRN Cardiac/Chest Pain #25 tabs 01/15/23 [Rx Last Taken Unknown] lidocaine 5 % topical patch 1 patch topical DAILY #15 ea 02/16/23 [Rx Last Taken Unknown] spironolactone 25 mg tablet 25 mg PO DAILY #60 tabs 04/11/23 [Rx Last Taken Unknown] Handicap Plaquard #1 ea 06/03/23 [Rx Last Taken Unknown] metoprolol succinate 25 mg tablet,extended release 24 hr 25 mg PO DAILY Dose was decreased #90 tabs 07/30/23 [Rx Last Taken Unknown] albuterol sulfate 90 mcg/actuation aerosol inhaler 2 puff inhalation Q4-6H PRN shortness of breath or wheezing #8.5 grams 08/15/23 [Rx Last Taken Unknown] furosemide 40 mg tablet (Lasix) 80 mg PO DAILY 08/15/23 [History Last Taken Unknown] apixaban 2.5 mg tablet (Eliquis) 2.5 mg PO BID #180 tabs 08/26/23 [Rx Last Taken Unknown] isosorbide mononitrate 60 mg tablet,extended release 24 hr 60 mg PO DAILY #90 tabs 09/02/23 [Rx Last Taken Unknown] folic acid 1 mg tablet 1 mg PO QDAY #90 tabs 10/17/23 [Rx Last Taken Unknown] nystatin 100,000 unit/gram topical powder 0 applic topical TID 10/18/23 [History Last Taken Unknown] Allergy/AdvReac Type Severity Reaction Status Date / Time clarithromycin [From Biaxin] Allergy PT UNSURE Verified 10/18/23 18:39 OF REACTION quinapril Allergy Angioedema Verified 10/18/23 18:39 Iojxxva-YPP-HjH Reductase Allergy Hives and Verified 10/18/23 18:39 Inhibitor myalgias [Rpzchte-Bmp-Chu Reductase Inhibitor] valsartan [From Diovan] Allergy PT UNSURE Verified 10/18/23 18:39 OF REACTION ezetimibe [From Zetia] AdvReac diarrhea Verified 10/18/23 18:39 simvastatin [From Vytorin] AdvReac PT UNSURE Verified 10/18/23 18:39 OF REACTION Family History Mother Diabetes Sister Cancer pancreatic Other Bilateral lower extremity edema Surgical History History of cardioversion (07/11/20) History of coronary artery stent placement (08/01/17) Presence of automatic implantable cardioverter-defibrillator (07/05/17) Presence of biventricular implantable cardioverter-defibrillator (ICD) (01/08/19) Social History Smoking Status: Former smoker how long ago did patient quit smoking: May 1988 alcohol intake: current alcohol intake frequency: holidays/special occasions only caffeine: No ROS Constitutional Constitutional: Denies chills, fatigue, fever(s) or malaise Eyes Eyes: Denies blurry vision ENT HEENT: Denies headache(s) or nasal discharge Cardiovascular Cardiovascular: Denies chest pain, dyspnea on exertion or syncope Respiratory/Chest Respiratory/Chest: Denies cough, shortness of breath at rest or shortness of breath with exertion Gastrointestinal Gastrointestinal: Denies constipation, diarrhea, nausea or vomiting Genitourinary Genitourinary: Denies dysuria Neurologic Neurologic: Denies focal weakness, numbness or tremor(s) Psychiatric Psychiatric: Denies anxiety or depression Vital Signs Vital Signs Vital Signs: 10/18/23 18:26 10/18/23 18:26 10/18/23 19:36 Temperature 96.8 F L 96.8 F L Temperature Source Temporal Temporal Pulse Rate 70 70 Respiratory Rate 16 16 Respiratory Effort Normal Short of Breath Respiratory Pattern Normal Blood Pressure 125/74 H 125/74 H Blood Pressure Mean 91 91 Pulse Ox 98 98 Oxygen Delivery Method Room Air Room Air Oxygen Flow Rate (L/min) 10/18/23 19:40 10/18/23 19:40 10/18/23 21:51 Temperature Temperature Source Pulse Rate 68 Respiratory Rate 19 H Respiratory Effort Respiratory Pattern Blood Pressure 128/77 H Blood Pressure Mean 94 Pulse Ox 88 98 98 Oxygen Delivery Method Room Air Nasal Cannula Nasal Cannula Oxygen Flow Rate (L/min) 2 2 10/18/23 22:16 Temperature Temperature Source Pulse Rate 72 Respiratory Rate 17 Respiratory Effort Respiratory Pattern Blood Pressure Blood Pressure Mean Pulse Ox 94 Oxygen Delivery Method Room Air Oxygen Flow Rate (L/min) Weight Weight: 209 lb 10.554 oz Body Mass Index (BMI) 30.9 Physical Exam Narrative General: Alert, Oriented x1, Cooperative, No apparent distress HEENT: Atraumatic, PERRLA, EOMI, Normocephalic Oral: Moist Mucosa Neck: Supple, No JVD Lungs: Diminished, Normal air movement, No rhonchi, No wheeze, No rales Cardiovascular: Regular rate, Regular Rhythm, Normal S1, Normal S2, No murmurs Abdomen: Soft, Non Tender, Non-Distended, No Hepato-splenomegaly Extremities: Edema, Capillary Refill Less than 3 Seconds Skin: No rashes, No breakdown Musculoskeletal: No Tenderness to Palpation of Joints or Extremities Neurological: No focal neurological deficits, Motor Exam 5/5 strength throughout, Sensory exam intact to light touch and pain Psych/Mental Status: Normal Affect, Appropriate Results Lab / Micro Data 10/18/23 19:34 10/18/23 19:34 Labs: Laboratory Results - last 24 hr 10/18/23 19:34: WBC 5.3, RBC 4.07 L, Hgb 13.2, Hct 42.3, MCV 103.9 H, MCH 32.4 H , MCHC 31.2 L, RDW Std Deviation 57.1 H, RDW Coeff of Roger 14.9 H, Plt Count 122 L, MPV 11.0, Immature Gran % (Auto) 0.200, Neut % (Auto) 77.4 H, Lymph % (Auto) 11.0 L, [place] % (Auto) 9.5, Eos % (Auto) 1.5, Baso % (Auto) 0.4, Absolute Neuts (auto) 4.1, Absolute Lymphs (auto) 0.58 L, Nucleated RBC % 0, Differential Comment SEE COMMENT, Platelet Estimate SLT DEC, RBC Morphology N CHROM, Anisocytosis 1+, Macrocytosis 1+, Sodium 140, Potassium 3.4 L, Chloride 103, Carbon Dioxide 27.0, Anion Gap 10, BUN 37 H, Creatinine 3.11 H, Estim Creat Clear Calc 19.04, Est GFR (MDRD) Af Amer 25 L, Est GFR (MDRD) Non-Af 20 L, BUN/Creatinine Ratio 11.9, Glucose 144 H, Calcium 10.1, Troponin I High Sens 99 H 10/18/23 20:13: Urine Color Yellow, Urine Clarity Clear, Urine pH 6.0, Ur Specific [place] 1.010, Urine Protein 30 H, Urine Glucose (UA) Normal, Urine Ketones Negative, Urine Occult Blood 250 H, Urine Nitrite Negative, Urine Bilirubin Negative, Urine Urobilinogen Normal, Ur Leukocyte Esterase 25 H, Urine RBC 25-50 SEEN, Urine WBC 0-5 SEEN, Ur Squamous Epith Cells 0 SEEN, Urine Bacteria 0 SEEN, Urine Mucus 0 SEEN 10/18/23 21:30: Troponin I High Sens 99 H Imaging Radiology Impression Chest X-Ray 10/18/23 19:40 IMPRESSION: Small left pleural effusion versus atelectasis. No acute consolidative process. Electronically Signed: Raúl Garcia MD at 20:30 EDT , Brain CT 10/18/23 20:37 IMPRESSION: Volume loss with chronic white matter changes. No acute intracranial findings. Electronically Signed: Raúl Garcia MD at 21:35 EDT , Assessment & Plan Assessment/Plan (1) Weakness: PLAN: Plan 1. Weakness and debility with inability to complete ADLs ? PT/OT ? Case management consult for discharge planning ? No clear etiology at this time 2. Chronic systolic CHF/A- flutter/essential HTN/HLD ? Blood pressure stable ? Can resume his home medications ? He had an echo in August 2023 with an EF of 30% ? Continue with Crestor 3. Anxiety/depression/dementia ? 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 Continue with his home medications ? With the dementia and the macrocytosis, will obtain a vitamin B12 DVT: Eliquis 75 minutes was spent on direct patient care, including documentation as well as chart review and collaboration with colleagues Charges/Coding Visit Charges Inpatient E&M: 58383 Init Hosp L3
[2023-10-19] MEDS: LORazepam 2 MG/ML Syringe 1 MG IV (04:10)
[2023-10-19 04:24] LABS: Absolute Lymphocyte Count 0.75 X10^3/uL (0.83-4.51); Absolute Neutrophil Count 3.7 X10^3/uL (2.0-7.7); Basophil# 0.03 X10^3/uL; Basophil% 0.6 % (0-1); Eosinophil# 0.09 X10^3/uL; Eosinophils% 1.8 % (0-5); Hematocrit 43.2 % (40-54); Hemoglobin 13.6 g/dL (13.0-16.5); Lymphocyte # 0.75 X10^3/ul (0.83-4.51); Lymphocyte % 14.9 % (19-41); Mean Corp Hgb Conc 31.5 g/dL (32-36); Mean Corpuscular Hgb 32.4 pg (27.0-32.0); Mean Corpuscular Volume 102.9 fL (80-94); Monocyte# 0.47 X10^3/uL; Monocyte% 9.4 % (0-10); NRBC Flagged by Analyzer 0 % (0-5); Neutrophil # 3.66 X10^3/uL (2.7-7.7); Neutrophil % 72.9 % (47-70); Platelet Count 130 K/mm3 (150-450); RBC Distribution Width CV 14.8 % (11.6-14.6); RBC Distribution Width SD 56.8 fl (35.1-43.9)
[2023-10-19 04:42] LABS: Anion Gap 10 (5-15); BUN 37 mg/dL (7-18); Calcium,Total 9.8 mg/dL (8.5-10.1); Chloride 105 mmol/L (98-107); Creatinine, Serum 3.09 mg/dL (0.70-1.30); EST Glomerular Filtration Rate 20 mL/min (>60); Est Glom Filt Rate - Afr Amer 25 mL/min (>60); Estimated Creatinine Clearance 18.75 ml/min; Glucose 148 mg/dL (74-106); Potassium 3.9 mmol/L (3.5-5.1); Sodium Level 139 mmol/L (136-145)
[2023-10-19 04:48] LABS: Vitamin B12 345 pg/mL (211-911)
--- NOTE | 2023-10-19 07:13 | PN.HOSP_ITS ---
Reason for Visit Reason for Visit: Diagnoses Weakness (10/19/23) Subjective Subjective Patient is an 87-year-old gentleman admitted with increasing generalized weakness and intermittent confusion Objective Data Objective Data Vital Signs: Vital Signs Temp Pulse Resp BP Pulse Ox O2 Del Method O2 Flow Rate 98.2 F 90 20 H 144/90 H 98 Room Air 2 10/19/23 02:10 10/19/23 02:12 10/19/23 02:10 10/19/23 02:10 10/19/23 02:10 10/19/23 02:12 10/18/23 21:51 Oxygen Flow Rate (L/min) 2 Oxygen Delivery Method Room Air Weight: 90.7 kg Body Mass Index (BMI) 29.5 Intake & Output: Intake and Output for Last 24 Hours 10/17/23 10/18/23 10/19/23 23:59 23:59 23:59 Intake Total 10 10 0 / 0 Output Total 0 / 0 Balance 10 10 0 / 0 Lab / Micro Data 10/19/23 04:10 10/19/23 04:10 Labs: Laboratory Results - last 24 hr 10/18/23 19:34: WBC 5.3, RBC 4.07 L, Hgb 13.2, Hct 42.3, MCV 103.9 H, MCH 32.4 H , MCHC 31.2 L, RDW Std Deviation 57.1 H, RDW Coeff of Roger 14.9 H, Plt Count 122 L, MPV 11.0, Immature Gran % (Auto) 0.200, Neut % (Auto) 77.4 H, Lymph % (Auto) 11.0 L, [place] % (Auto) 9.5, Eos % (Auto) 1.5, Baso % (Auto) 0.4, Absolute Neuts ( auto) 4.1, Absolute Lymphs (auto) 0.58 L, Nucleated RBC % 0, Differential Com ment SEE COMMENT, Platelet Estimate SLT DEC, RBC Morphology N CHROM, Anisocytosis 1+, Macrocytosis 1+, Sodium 140, Potassium 3.4 L, Chloride 103, Carbon Dioxide 27.0, Anion Gap 10, BUN 37 H, Creatinine 3.11 H, Estim Creat Clear Calc 19.04, Est GFR (MDRD) Af Amer 25 L, Est GFR (MDRD) Non-Af 20 L, BUN/Creatinine Ratio 11.9, Glucose 144 H, Calcium 10.1, Troponin I High Sens 99 H 10/18/23 20:13: Urine Color Yellow, Urine Clarity Clear, Urine pH 6.0, Ur Specific [place] 1.010, Urine Protein 30 H, Urine Glucose (UA) Normal, Urine Ketones Negative, Urine Occult Blood 250 H, Urine Nitrite Negative, Urine Bilirubin Negative, Urine Urobilinogen Normal, Ur Leukocyte Esterase 25 H, Urine RBC 25-50 SEEN, Urine WBC 0-5 SEEN, Ur Squamous Epith Cells 0 SEEN, Urine Bacteria 0 SEEN, Urine Mucus 0 SEEN 10/18/23 21:30: Troponin I High Sens 99 H 10/19/23 04:10: WBC 5.0, RBC 4.20 L, Hgb 13.6, Hct 43.2, MCV 102.9 H, MCH 32.4 H , MCHC 31.5 L, RDW Std Deviation 56.8 H, RDW Coeff of Roger 14.8 H, Plt Count 130 L, MPV 11.0, Immature Gran % (Auto) 0.400, Neut % (Auto) 72.9 H, Lymph % (Auto) 14.9 L, [place] % (Auto) 9.4, Eos % (Auto) 1.8, Baso % (Auto) 0.6, Absolute Neuts (auto) 3.7, Absolute Lymphs (auto) 0.75 L, Nucleated RBC % 0, Sodium 139, Potassium 3.9, Chloride 105, Carbon Dioxide 24.0, Anion Gap 10, BUN 37 H, Creatinine 3.09 H, Estim Creat Clear Calc 18.75, Est GFR (MDRD) Af Amer 25 L, Est GFR (MDRD) Non-Af 20 L, BUN/Creatinine Ratio 12.0, Glucose 148 H, Calcium 9.8, Vitamin B12 345 Radiography Diagnostic Testing: Radiology Impression Chest X-Ray 10/18/23 19:40 IMPRESSION: Small left pleural effusion versus atelectasis. No acute consolidative process. Electronically Signed: Raúl Garcia MD at 20:30 EDT , Brain CT 04/19/24 20:37 IMPRESSION: Volume loss with chronic white matter changes. No acute intracranial findings. Electronically Signed: Raúl Garcia MD at 21:35 EDT , Physical Exam Narrative GENERAL: Awake but refusing to answer questions HEENT: Atraumatic; normocephalic EYES; Anicteric, Normal Conjunctiva NECK; supple, normal thyroid, RESPIRATORY: Diminished to auscultation CARDIOVASCULAR: Regular S1 S2, GI: soft, normoactive bowel sounds, : No Renal angle tenderness; EXTREMITIES: No edema, no clubbing, MUSCULOSKELETAL: no muscle wasting NEURO: Awake; no lateralizing signs. SKIN: No Rash PSYCH; Flat affect Assessment & Plan Assessment/Plan (1) Weakness: PLAN: Plan Patient is an 87-year-old gentleman admitted with increasing generalized weaknes s and intermittent confusion 1. Physical deconditioning - Requested for PT OT eval and clinical social worker to assist with discharge planning 2. Dementia with intermittent confusion ? Plan is to rule out infectious etiology which is so far been negative to date 3. 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 Recent echo From 09/17/2023 demonstrated EF of 30% 4. Coronary artery disease ? With previous PCI with ALAN. Remains on guideline directed medical therapy 5. History of ventricular tachycardia ? Status post iCD placement in July 2017 at [facility], and subsequent Bi-V upgrade of his ICD on January 08, 2019 6. Hypertension - Blood pressure controlled, home medications continued with dose adjustment as needed 7. Dyslipidemia -Patient is on statin therapy, continued at home dose 8. Paroxysmal A-fib/flutter ? Rate controlled on systemic anticoagulation with apixaban 9. Type 2 diabetes ? Without complications managed with diet only 10. Depression with anxiety ? Patient is on sertraline 11. Chronic kidney disease stage V ? Patient baseline creatinine has ranged from 2.7-4.6. Creatinine on admission was 3.09 monitoring with daily BMPs 12. DVT prophylaxis -Patient already on apixaban Time spent in the patient's overall evaluation,decision-making process, review of diagnostic data, adjustment of management, discussion with other providers, nursing nursing and ancillary staff involved in patient's care documentation, 52 Minutes Charges/Coding Visit Charges Inpatient E&M: 25020 Subs Hosp L3
[2023-10-19] MEDS: Aspirin 81 MG TAB.CHEW PO (08:12)
[2023-10-19] MEDS: Folic Acid 1 MG Tablet PO (08:12)
[2023-10-19] MEDS: Metoprolol(XL)Succ 25 MG Tablet PO (09:08)
[2023-10-19] MEDS: Spironolactone 25 MG Tablet PO (09:08)
[2023-10-19] MEDS: Sertraline 50 MG Tablet PO (09:08)
[2023-10-19] MEDS: Isosorbide Mononitrate 60 MG Tablet PO (09:08)
[2023-10-19] MEDS: Furosemide 40 MG Tablet 80 MG PO (09:09)
[2023-10-19] MEDS: APIXABAN 2.5 MG TABLET (WCH) PO ×2 (09:13→22:34)
--- NOTE | 2023-10-19 14:24 | CASEMGMT ---
RN CM in to discuss LINDO form with patient. RN CM explained LINDO form, patient voiced understanding. Pt signed form and filed in chart. Pt provided with a copy of signed LINDO form. Patient had no further questions or concerns at this time. Samantha Andres MSN, RN, CCM
--- NOTE | 2023-10-19 14:54 | CASEMGMT ---
Addendum entered by Samantha Andres 10/19/23 15:32: Call received from spouse that 1st FOC is TCU at [facility], 2nd FOC is [facility]. Samantha Andres MSN, RN, CCM Original Note: Admitting Dx: weakness and FTT PCP:Perry Olivas Preferred Pharmacy: [facility] Insurance: Peter [facility] Prescription Benefit: yes LNOK: Spouse Wendie, son Bob and Dirk, daughter Lynette Living Arrangements: Pt lives at home with spouse in a split level home. Pt enters the home from the garage which has 4 steps down into the family room. In this level of the home there is a bed and patty. Pt sleeps in the recliner. Spouse provides assist for all ADLs and IADLs. Spouse sponge bathes pt once per week, she reports it takes approximately one hour. Spouse reports [facility] 12 hours per week, however the agency that they contracted through has not shown up in about 6 weeks. Asked the spouse to contact the [facility] on Saturday to discuss. Transportation: Spouse provides any needed transportation. DME: walker, shower chair, grab bars, nebulizer HHC/SNF: Spouse unable to remember previous HHC agencies, pt was previously at [facility]. Pt states no concerns with going home at time of dc. Pt states no further concerns/needs. CM to follow. Advised pt to ask CM if any further question/concerns/needs arise, voices understanding. Pt Goal: Spouse would like to provide care for pt at home, but needs increased services to do so. Spouse to call [facility] on Saturday to discuss why the SMOKING TOBACCO CUTTER OPERATOR have not come out in 6 weeks. Spouse reports she has looked into [facility] but they do not qualify for Medicaid. Spouse is hopeful pt can DC to SNF from the hospital. Plan: SNF, reviewing SNF options, she does not want pt to go to [place] Samantha Andres MSN, RN, CCM
--- NOTE | 2023-10-19 15:00 | CASEMGMT ---
Patient was provided a list of SNF providers including quality and resource use data and consistent with the patient?s preferred geographic region, medical needs, and insurance network were provided from the CarePort Guide. Samantha Andres MSN, RN, CCM
--- NOTE | 2023-10-19 18:00 | CASEMGMT ---
Social Work Collaboration with Samantha Andres RN CM. Samantha reports family has been given SNF list for choices. First choice is [facility] and second is [facility]. Message left for Felipa in admissions at [facility] of this referral. Referral sent via [facility] to [facility]. Plan: Anticipate SNF. Referrals pending. SW to follow. -EMIGDIO Mead
[2023-10-19] MEDS: Atorvastatin Calcium 20 MG Tablet PO (22:31)
[2023-10-19] MEDS: Multivitamin (Healthy Eyes) Capsule 1 CAP PO (22:31)
[2023-10-19] MEDS: Albuterol 2.5 MG/3 ML VIAL.NEB. INHALATION (22:58)
[2023-10-20 04:13] VITALS: BP 150/92; PULSE 70; RESP 18; TEMP 36.6; O2SAT 92
[2023-10-20 06:49] LABS: Absolute Lymphocyte Count 0.69 X10^3/uL (0.83-4.51); Absolute Neutrophil Count 3.5 X10^3/uL (2.0-7.7); Basophil# 0.03 X10^3/uL; Basophil% 0.6 % (0-1); Eosinophil# 0.09 X10^3/uL; Eosinophils% 1.9 % (0-5); Hematocrit 45.6 % (40-54); Hemoglobin 13.9 g/dL (13.0-16.5); Lymphocyte # 0.69 X10^3/ul (0.83-4.51); Lymphocyte % 14.2 % (19-41); Mean Corp Hgb Conc 30.5 g/dL (32-36); Mean Corpuscular Hgb 31.6 pg (27.0-32.0); Mean Corpuscular Volume 103.6 fL (80-94); Mean Platelet Vol. 11.1 fl (6.2-12.0); Monocyte# 0.56 X10^3/uL; Monocyte% 11.5 % (0-10); NRBC Flagged by Analyzer 0 % (0-5); Neutrophil # 3.45 X10^3/uL (2.7-7.7); Neutrophil % 71.2 % (47-70); Platelet Count 116 K/mm3 (150-450); RBC Distribution Width CV 14.8 % (11.6-14.6); RBC Distribution Width SD 56.9 fl (35.1-43.9); White Blood Count 4.9 K/mm3 (4.4-11.0)
[2023-10-20 07:03] LABS: Anion Gap 8 (5-15); BUN 43 mg/dL (7-18); BUN/Creat Ratio 13.8 RATIO (10-20); Calcium,Total 10.3 mg/dL (8.5-10.1); Chloride 104 mmol/L (98-107); Creatinine, Serum 3.11 mg/dL (0.70-1.30); EST Glomerular Filtration Rate 20 mL/min (>60); Est Glom Filt Rate - Afr Amer 25 mL/min (>60); Estimated Creatinine Clearance 18.63 ml/min; Glucose 124 mg/dL (74-106); Magnesium 2.4 mg/dL (1.6-2.6); Phosphorus 3.3 mg/dL (2.5-4.9); Potassium 3.5 mmol/L (3.5-5.1); Sodium Level 138 mmol/L (136-145)
--- NOTE | 2023-10-20 07:49 | PN.HOSP_ITS ---
Reason for Visit Reason for Visit: Diagnoses Weakness (10/19/23) Subjective Subjective Patient seen much more awake and interactive however remains confused. Patient not oriented to time and place Objective Data Objective Data Vital Signs: Vital Signs Temp Pulse Resp BP Pulse Ox O2 Del Method O2 Flow Rate 97.8 F 70 18 150/92 H 92 Room Air 97 10/20/23 04:13 10/20/23 04:13 10/20/23 04:13 10/20/23 04:13 10/20/23 04:13 10/20/23 04:13 10/19/23 20:00 Oxygen Flow Rate (L/min) 97 Oxygen Delivery Method Room Air Weight: 90.7 kg Body Mass Index (BMI) 29.5 Intake & Output: Intake and Output for Last 24 Hours 10/18/23 10/19/23 10/20/23 23:59 23:59 23:59 Intake Total 0 / 200 450 / 450 Output Total 1000 / 1000 600 / 600 Balance -1000 / -800 -150 / -150 Lab / Micro Data 10/20/23 06:25 10/20/23 06:25 Labs: Laboratory Results - last 24 hr 10/20/23 06:25: WBC 4.9, RBC 4.40 L, Hgb 13.9, Hct 45.6, MCV 103.6 H, MCH 31.6, MCHC 30.5 L, RDW Std Deviation 56.9 H, RDW Coeff of Roger 14.8 H, Plt Count 116 L, MPV 11.1, Immature Gran % (Auto) 0.600, Neut % (Auto) 71.2 H, Lymph % (Auto) 14.2 L, [place] % (Auto) 11.5 H, Eos % (Auto) 1.9, Baso % (Auto) 0.6, Absolute Neuts (auto) 3.5, Absolute Lymphs (auto) 0.69 L, Nucleated RBC % 0, Sodium 138, Potassium 3.5, Chloride 104, Carbon Dioxide 26.0, Anion Gap 8, BUN 43 H, Creatinine 3.11 H, Estim Creat Clear Calc 18.63, Est GFR (MDRD) Af Amer 25 L, Est GFR (MDRD) Non-Af 20 L, BUN/Creatinine Ratio 13.8, Glucose 124 H, Calcium 10 .3 H, Phosphorus 3.3, Magnesium 2.4 Physical Exam Narrative GENERAL: Awake but refusing to answer questions HEENT: Atraumatic; normocephalic EYES; Anicteric, Normal Conjunctiva NECK; supple, normal thyroid, RESPIRATORY: Diminished to auscultation CARDIOVASCULAR: Regular S1 S2, GI: soft, normoactive bowel sounds, : No Renal angle tenderness; EXTREMITIES: No edema, no clubbing, MUSCULOSKELETAL: no muscle wasting NEURO: Awake; no lateralizing signs. SKIN: No Rash PSYCH; Flat affect Assessment & Plan Assessment/Plan (1) Weakness: PLAN: Plan Patient is an 87-year-old gentleman admitted with increasing generalized weakness and intermittent confusion 1. Physical deconditioning - Requested for PT OT eval and social media content specialist to assist with discharge planning ? 10/20/2023; case management to assist with disposition 2. Dementia with intermittent confusion ? Plan is to rule out infectious etiology which is so far been negative to date 3. 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 Recent echo From 09/17/2023 demonstrated EF of 30% 4. Coronary artery disease ? With previous PCI with ALAN. Remains on guideline directed medical therapy 5. History of ventricular tachycardia ? Status post iCD placement in July 2017 at [facility], and subsequent Bi-V upgrade of his ICD on January 08, 2019 6. Hypertension - Blood pressure controlled, home medications continued with dose adjustment as needed 7. Dyslipidemia -Patient is on statin therapy, continued at home dose 8. Paroxysmal A-fib/flutter ? Rate controlled on systemic anticoagulation with apixaban 9. Type 2 diabetes ? Without complications managed with diet only 10. Depression with anxiety ? Patient is on sertraline 11. Chronic kidney disease stage V ? Patient baseline creatinine has ranged from 2.7-4.6. Creatinine on admission was 3.09 monitoring with daily BMPs 12. DVT prophylaxis -Patient already on apixaban Time spent in the patient's overall evaluation,decision-making process, review of diagnostic data, adjustment of management, discussion with other providers, nursing nursing and ancillary staff involved in patient's care documentation, 35 Minutes Charges/Coding Visit Charges Inpatient E&M: 92026 Subs Hosp L2
[2023-10-20] MEDS: Aspirin 81 MG TAB.CHEW PO (09:35)
[2023-10-20] MEDS: Spironolactone 25 MG Tablet PO (09:35)
[2023-10-20] MEDS: Folic Acid 1 MG Tablet PO (09:35)
[2023-10-20 09:36] VITALS: PULSE 70
[2023-10-20] MEDS: Sertraline 50 MG Tablet PO (09:36)
[2023-10-20] MEDS: Metoprolol(XL)Succ 25 MG Tablet PO (09:36)
[2023-10-20] MEDS: Cholecalciferol (Vit D3) 125 MCG CAPSULE (5,000 UNITS) PO (09:36)
[2023-10-20] MEDS: Furosemide 40 MG Tablet 80 MG PO (09:37)
[2023-10-20] MEDS: Isosorbide Mononitrate 60 MG Tablet PO (09:37)
[2023-10-20] MEDS: Multivitamin (Healthy Eyes) Capsule 1 CAP PO ×2 (09:37→22:28)
[2023-10-20] MEDS: APIXABAN 2.5 MG TABLET (WCH) PO ×2 (09:43→22:28)
[2023-10-20 10:00] VITALS: BP 107/58; PULSE 70; RESP 16; TEMP 36.3; O2SAT 95
[2023-10-20 16:00] VITALS: BP 123/70; PULSE 71; RESP 18; TEMP 36.5; O2SAT 95
[2023-10-20 20:48] VITALS: BP 131/74; PULSE 71; RESP 18; TEMP 36.5; O2SAT 96
[2023-10-20 21:00] VITALS: O2SAT 97
[2023-10-20] MEDS: Atorvastatin Calcium 20 MG Tablet PO (22:28)
[2023-10-21] VITALS (8 sets, daily range): BP systolic 133–154; BP diastolic 80–89; PULSE 69–80; RESP 18–20; TEMP 36.3–36.7; O2SAT 94–95
[2023-10-21] MEDS: Albuterol 2.5 MG/3 ML VIAL.NEB. INHALATION (05:26)
[2023-10-21 06:37] LABS: Absolute Lymphocyte Count 1.04 X10^3/uL (0.83-4.51); Absolute Neutrophil Count 3.7 X10^3/uL (2.0-7.7); Basophil# 0.03 X10^3/uL; Basophil% 0.6 % (0-1); Eosinophils% 1.8 % (0-5); Hemoglobin 13.7 g/dL (13.0-16.5); Lymphocyte # 1.04 X10^3/ul (0.83-4.51); Lymphocyte % 19.1 % (19-41); Mean Corp Hgb Conc 30.4 g/dL (32-36); Mean Corpuscular Hgb 31.4 pg (27.0-32.0); Mean Platelet Vol. 10.9 fl (6.2-12.0); Monocyte# 0.59 X10^3/uL; Monocyte% 10.8 % (0-10); NRBC Flagged by Analyzer 0 % (0-5); Neutrophil # 3.66 X10^3/uL (2.7-7.7); Neutrophil % 67.3 % (47-70); Platelet Count 121 K/mm3 (150-450); RBC Distribution Width CV 14.9 % (11.6-14.6); RBC Distribution Width SD 56.4 fl (35.1-43.9); Red Blood Count 4.37 M/mm3 (4.6-6.2); White Blood Count 5.4 K/mm3 (4.4-11.0)
[2023-10-21 07:24] LABS: Anion Gap 10 (5-15); BUN 46 mg/dL (7-18); BUN/Creat Ratio 14.5 RATIO (10-20); Calcium,Total 10.1 mg/dL (8.5-10.1); Chloride 104 mmol/L (98-107); Creatinine, Serum 3.17 mg/dL (0.70-1.30); EST Glomerular Filtration Rate 20 mL/min (>60); Est Glom Filt Rate - Afr Amer 24 mL/min (>60); Estimated Creatinine Clearance 18.28 ml/min; Glucose 123 mg/dL (74-106); Potassium 3.8 mmol/L (3.5-5.1); Sodium Level 140 mmol/L (136-145)
[2023-10-21] MEDS: Folic Acid 1 MG Tablet PO (08:30)
[2023-10-21] MEDS: Spironolactone 25 MG Tablet PO (08:30)
[2023-10-21] MEDS: Aspirin 81 MG TAB.CHEW PO (08:31)
[2023-10-21] MEDS: Furosemide 40 MG Tablet 80 MG PO (08:31)
[2023-10-21] MEDS: Isosorbide Mononitrate 60 MG Tablet PO (08:32)
[2023-10-21] MEDS: Multivitamin (Healthy Eyes) Capsule 1 CAP PO ×2 (08:32→21:21)
[2023-10-21] MEDS: Metoprolol(XL)Succ 25 MG Tablet PO (08:32)
[2023-10-21] MEDS: Sertraline 50 MG Tablet PO (08:33)
--- NOTE | 2023-10-21 11:08 | PN.HOSP_ITS ---
Reason for Visit Reason for Visit: Diagnoses Weakness (10/19/23) Objective Data Objective Data Vital Signs: Vital Signs Temp Pulse Resp BP Pulse Ox O2 Del Method O2 Flow Rate 98.0 F 80 20 H 134/86 H 94 Room Air 97 10/21/23 08:40 10/21/23 09:00 10/21/23 09:00 10/21/23 08:40 10/21/23 08:40 10/21/23 08:40 10/19/23 20:00 Oxygen Flow Rate (L/min) 97 Oxygen Delivery Method Room Air Weight: 199 lb 15.348 oz Body Mass Index (BMI) 29.5 Intake & Output: Intake and Output for Last 24 Hours 10/19/23 10/20/23 10/21/23 23:59 23:59 23:59 Intake Total 0 / 200 450 / 600 400 / 400 Output Total 1000 / 1000 800 / 1000 200 / 200 Balance -1000 / -800 -350 / -400 200 / 200 Lab / Micro Data 10/21/23 06:14 10/21/23 06:14 Labs: Laboratory Results - last 24 hr 10/21/23 06:14: WBC 5.4, RBC 4.37 L, Hgb 13.7, Hct 45.0, MCV 103.0 H, MCH 31.4, MCHC 30.4 L, RDW Std Deviation 56.4 H, RDW Coeff of Roger 14.9 H, Plt Count 121 L, MPV 10.9, Immature Gran % (Auto) 0.400, Neut % (Auto) 67.3, Lymph % (Auto) 19.1, [place] % (Auto) 10.8 H, Eos % (Auto) 1.8, Baso % (Auto) 0.6, Absolute Neuts (auto) 3.7, Absolute Lymphs (auto) 1.04, Nucleated RBC % 0, Sodium 140, Potassium 3.8, Chloride 104, Carbon Dioxide 26.0, Anion Gap 10, BUN 46 H, Creatinine 3.17 H, Estim Creat Clear Calc 18.28, Est GFR (MDRD) Af Amer 24 L, Est GFR (MDRD) Non-Af 20 L, BUN/Creatinine Ratio 14.5, Glucose 123 H, Calcium 10.1 Physical Exam Narrative Seen and examined. Patient is hard of hearing. His healthcare is mainly taken care of by his at bedside. On constipation no good bowel movement for 2 to 3 days Physical exam General: Alert, Oriented x3, Cooperative HEENT: Atraumatic, PERRLA, EOMI, Normocephalic Oral: No Gingival or Mucosal Lesions/ Ulcerations Neck: Supple, No JVD, Negative Carotid Bruits Chest wall/Lungs: Air entry diminished in bilateral lung bases. No crepitation/rhonchi Cardiovascular: Regular rate, Regular Rhythm, Normal S1, Normal S2, pacemaker. Systolic murmur present. Abdomen: Bowel Sounds Present, Soft, Non Tender, Non-Distended : No dysuria. No renal angle tenderness. No suprapubic tenderness. Extremities: Lower extremity edema with superficial blisters and seepage, Capillary Refill Less than 3 Seconds Skin: No rashes, No breakdown Musculoskeletal: No Tenderness to Palpation of Joints or Extremities Neurological: Cranial nerves II-XII grossly intact, DTR 2+/4. No acute focal neurological deficit. Psych/Mental Status: Flat affect Assessment & Plan Assessment/Plan (1) Weakness: PLAN: Plan Patient is an 87-year-old gentleman admitted with increasing generalized weak ness and intermittent confusion 1. Physical deconditioning with adult failure to thrive, debility, difficulty of ambulation, loss of equilibrium/balance - Requested for PT OT eval and high school social science teacher to assist with discharge planning 10/20: Case management to assist with disposition 2. Dementia with intermittent confusion 10/20: No fever. No acute change in mental status noticed today 3. 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 Recent echo From 09/17/2023 demonstrated EF of 30% 4. Coronary artery disease ? With previous PCI with ALAN. Remains on guideline directed medical therapy 5. History of ventricular tachycardia ? Status post iCD placement in July 2017 at [facility], and subsequent Bi-V upgrade of his ICD on January 08, 2019 6. Hypertension - Blood pressure controlled, home medications continued with dose adjustment as needed 7. Dyslipidemia -Patient is on statin therapy, continued at home dose 8. Paroxysmal A-fib/flutter ? Rate controlled on systemic anticoagulation with apixaban 9. Type 2 diabetes ? Without complications managed with diet only 10. Depression with anxiety ? Patient is on sertraline 11. Chronic kidney disease stage V ? Patient baseline creatinine has ranged from 2.7-4.6. Creatinine on admission was 3.09 monitoring with daily BMPs 10/20 her creatinine is similar around 3.1-3.2 since admission. 12. DVT prophylaxis -Patient already on apixaban Charges/Coding Visit Charges Inpatient E&M: 06152 Subs Hosp L2
--- NOTE | 2023-10-21 11:22 | CASEMGMT ---
Addendum entered by Destiney Garnica 10/21/23 14:33: TCU accepted; precert started. Pt and pt updated on status of referral. Pt expresses thanks. Pt given contact information for any questions that sons may have. Plan: TCU; pending precert. RONALDO Valencia Original Note: Social Work- Elda Owen and zachery met with pt and to discuss plans upon d/c and provide education on options. Pt states that she is hoping to take pt home following rehab. Pt did ask about LTC and dx that make pt eligible for placement. Pt states that her sons have some concerns about rehab vs LT placement, but at this time the plan is to place in rehab and return home. TCU is pt first choice. Plan: referral to TCU; pending acceptance RONALDO Valencia
[2023-10-21] MEDS: APIXABAN 2.5 MG TABLET (WCH) PO ×2 (12:20→21:21)
[2023-10-21] MEDS: Polyethylene Glycol 3350 17 GM PACKET PO (13:00)
[2023-10-21] MEDS: Senna/Docusate Sodium 1 Tablet 2 TABLET PO ×2 (13:00→21:25)
--- NOTE | 2023-10-21 16:18 | CHAPLAIN ---
Type of Pastoral Visit _x__ Initial Visit ___ Follow-up Visit ___ On-call Visit ___ General Patient Visit ___ Spiritual Assessment ___ Family Conference ___ Bereavement ___ Rapid Response ___ Code Blue ___ Other (describe below) Pastoral Care Referral From ___ Patient _x__ Family ___ Nurse ___ Physician ___ Air Crew Officer ___ Sports Director ___ Other (describe below) Sacrament/Intervention _x__ Active listening ___ Anointing ___ Jew ___ Bereavement ___ Communion ___ Rosalinda exploration ___ ___ Life review _x__ Prayer ___ Reconciliation ___ Sacrament of Sick _x__ Supportive presence ___ Wedding ___ Other (describe below) Pastoral Comments patient is sitting in chair and spouse is in front of him on her chair; pt wants to use the bathroom per spouse; this community arts worker uses call button and then asks questions of both; pt does not speak but nods or mumbles an answer to questions; spouse gives more details and agrees to prayer and the giving of presence and support; spouse admits need for prayers for herself as she deals with her of 62 years; ENERGY BROKER came to assist with the patient
[2023-10-21] MEDS: Atorvastatin Calcium 20 MG Tablet PO (21:21)
[2023-10-22] VITALS (8 sets, daily range): BP systolic 128–147; BP diastolic 70–92; PULSE 69–80; RESP 18; TEMP 36.4–37; O2SAT 93–98
[2023-10-22 07:45] LABS: Basophil% 0.5 % (0-1); Eosinophils% 1.3 % (0-5); Hematocrit 43.5 % (40-54); Hemoglobin 13.3 g/dL (13.0-16.5); Lymphocyte % 11.8 % (19-41); Mean Corp Hgb Conc 30.6 g/dL (32-36); Mean Corpuscular Hgb 31.4 pg (27.0-32.0); Mean Corpuscular Volume 102.8 fL (80-94); Mean Platelet Vol. 10.9 fl (6.2-12.0); Monocyte% 11.8 % (0-10); Neutrophil % 74.1 % (47-70); Platelet Count 134 K/mm3 (150-450); RBC Distribution Width CV 15.1 % (11.6-14.6); Red Blood Count 4.23 M/mm3 (4.6-6.2); White Blood Count 5.5 K/mm3 (4.4-11.0)
[2023-10-22 07:46] LABS: Basophil# 0.03 X10^3/uL; Eosinophil# 0.07 X10^3/uL; Lymphocyte # 0.65 X10^3/ul (0.83-4.51); Monocyte# 0.65 X10^3/uL; Neutrophil # 4.06 X10^3/uL (2.7-7.7)
[2023-10-22 07:50] LABS: Anion Gap 8 (5-15); BUN 51 mg/dL (7-18); Calcium,Total 10.5 mg/dL (8.5-10.1); Chloride 102 mmol/L (98-107); Creatinine, Serum 3.41 mg/dL (0.70-1.30); EST Glomerular Filtration Rate 18 mL/min (>60); Est Glom Filt Rate - Afr Amer 22 mL/min (>60); Estimated Creatinine Clearance 16.99 ml/min; Glucose 129 mg/dL (74-106); Potassium 3.7 mmol/L (3.5-5.1); Sodium Level 139 mmol/L (136-145)
[2023-10-22] MEDS: Folic Acid 1 MG Tablet PO (10:12)
[2023-10-22] MEDS: Spironolactone 25 MG Tablet PO (10:12)
[2023-10-22] MEDS: Aspirin 81 MG TAB.CHEW PO (10:12)
[2023-10-22] MEDS: APIXABAN 2.5 MG TABLET (WCH) PO ×2 (10:13→20:43)
[2023-10-22] MEDS: Isosorbide Mononitrate 60 MG Tablet PO (10:13)
[2023-10-22] MEDS: Multivitamin (Healthy Eyes) Capsule 1 CAP PO (10:13)
[2023-10-22] MEDS: Furosemide 40 MG Tablet 80 MG PO (10:14)
[2023-10-22] MEDS: Nystatin Powder 15gm Bottle 1 APPLIC TOPICAL ×2 (10:16→20:44)
[2023-10-22] MEDS: Senna/Docusate Sodium 1 Tablet 2 TABLET PO (10:16)
[2023-10-22] MEDS: Polyethylene Glycol 3350 17 GM PACKET PO (10:16)
[2023-10-22] MEDS: Cholecalciferol (Vit D3) 125 MCG CAPSULE (5,000 UNITS) PO (10:17)
[2023-10-22] MEDS: Sertraline 50 MG Tablet PO (10:17)
[2023-10-22] MEDS: Metoprolol(XL)Succ 25 MG Tablet PO (10:17)
[2023-10-22 10:54] LABS: Hemoglobin A1c 6.3 % (3.8-5.6)
[2023-10-22 14:21] LABS: Absolute Neutrophil Count 4.1 X10^3/uL (2.0-7.7)
--- NOTE | 2023-10-22 14:23 | PCM.PN.HOSP ---
Reason for Visit Reason for Visit: Diagnoses Weakness (10/19/23) Objective Data Objective Data Vital Signs: Vital Signs Temp Pulse Resp BP Pulse Ox O2 Del Method O2 Flow Rate 98.6 F 80 18 135/92 H 93 Room Air 97 10/22/23 09:19 10/22/23 13:40 10/22/23 09:19 10/22/23 10:17 10/22/23 13:40 10/22/23 13:48 10/19/23 20:00 Oxygen Flow Rate (L/min) 97 Oxygen Delivery Method Room Air Weight: 199 lb 15.348 oz Body Mass Index (BMI) 29.5 Intake & Output: Intake and Output for Last 24 Hours 10/20/23 10/21/23 10/22/23 23:59 23:59 23:59 Intake Total 450 / 600 650 / 650 Output Total 800 / 1000 600 / 600 400 / 400 Balance -350 / -400 50 / 50 -400 / -400 Lab / Micro Data 10/22/23 06:40 10/22/23 06:40 Labs: Laboratory Results - last 24 hr 10/22/23 06:40: WBC 5.5, RBC 4.23 L, Hgb 13.3, Hct 43.5, MCV 102.8 H, MCH 31.4, MCHC 30.6 L, RDW Std Deviation 57.0 H, RDW Coeff of Roger 15.1 H, Plt Count 134 L, MPV 10.9, Immature Gran % (Auto) 0.500, Neut % (Auto) 74.1 H, Lymph % (Auto) 11.8 L, [place] % (Auto) 11.8 H, Eos % (Auto) 1.3, Baso % (Auto) 0.5, Absolute Neuts (auto) 4.1, Sodium 139, Potassium 3.7, Chloride 102, Carbon Dioxide 29.0, Anion Gap 8, BUN 51 H, Creatinine 3.41 H, Estim Creat Clear Calc 16.99, Est GFR (MDRD) Af Amer 22 L, Est GFR (MDRD) Non-Af 18 L, BUN/Creatinine Ratio 15.0, Glucose 129 H, Hemoglobin A1c 6.3 H, Calcium 10.5 H Physical Exam Narrative Seen and examined. As per the he is little worse than yesterday in general but no specific complaint. Constipation Physical exam General: Alert, Oriented x3, Cooperative HEENT: Atraumatic, PERRLA, EOMI, Normocephalic Oral: No Gingival or Mucosal Lesions/ Ulcerations Neck: Supple, No JVD, Negative Carotid Bruits Chest wall/Lungs: Air entry diminished in bilateral lung bases. No crepitation/rhonchi Cardiovascular: Regular rate, Regular Rhythm, Normal S1, Normal S2, pacemaker. Systolic murmur present. Abdomen: Bowel Sounds Present, Soft, Non Tender, Non-Distended : No dysuria. No renal angle tenderness. No suprapubic tenderness. Extremities: Lower extremity edema with superficial blisters and seepage, Capillary Refill Less than 3 Seconds Skin: No rashes, No breakdown Musculoskeletal: No Tenderness to Palpation of Joints or Extremities Neurological: Cranial nerves II-XII grossly intact, DTR 2+/4. No acute focal neurological deficit. Psych/Mental Status: Flat affect Assessment & Plan Assessment/Plan (1) Weakness: PLAN: Plan Patient is an 87-year-old gentleman admitted with increasing generalized weakness and intermittent confusion 1. Physical deconditioning with adult failure to thrive, debility, difficulty of ambulation, loss of equilibrium/balance - Requested for PT OT eval and community mental health social worker to assist with discharge planning 10/20: Case management to assist with disposition 2. Dementia with intermittent confusion 10/20: No fever. No acute change in mental status noticed today 10/21: Intermittent sometimes confusion/lethargy. Overall no major change. 2D echo 09/17/2023 Interpretation Summary Normal LV size. Mild concentric left ventricular hypertrophy. RA severely enlarged. The left ventricular ejection fraction is 30 %. Compared to previous study, the left ventricular systolic function is the same.. 3. 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 Recent echo From 09/17/2023 demonstrated EF of 30% 4. Coronary artery disease ? With previous PCI with ALAN. Remains on guideline directed medical therapy 5. History of ventricular tachycardia ? Status post iCD placement in July 2017 at [facility], and subsequent Bi-V upgrade of his ICD on January 08, 2019 6. Hypertension - Blood pressure controlled, home medications continued with dose adjustment as needed 7. Dyslipidemia -Patient is on statin therapy, continued at home dose 8. Paroxysmal A-fib/flutter ? Rate controlled on systemic anticoagulation with apixaban 9. Type 2 diabetes ? Without complications managed with diet only 10. Depression with anxiety ? Patient is on sertraline 11. Chronic kidney disease stage V ? Patient baseline creatinine has ranged from 2.7-4.6. Creatinine on admission was 3.09 monitoring with daily BMPs 10/20 her creatinine is similar around 3.1-3.2 since admission. 12. DVT prophylaxis -Patient already on apixaban Charges/Coding Visit Charges Inpatient E&M: 08103 Subs Hosp L2
[2023-10-22] MEDS: Albuterol 2.5 MG/3 ML VIAL.NEB. INHALATION (14:24)
--- NOTE | 2023-10-22 15:02 | CASEMGMT ---
Social Work SW let pt and know we are still waiting for precert, SW will let them know as soon as SW knows. As per TCU, precert is still pending. MIRZA Coyle
[2023-10-22] MEDS: Atorvastatin Calcium 20 MG Tablet PO (20:43)
[2023-10-23] VITALS (7 sets, daily range): BP systolic 118–148; BP diastolic 85–99; PULSE 68–71; RESP 15–22; TEMP 36.4–36.7; O2SAT 93–98
--- NOTE | 2023-10-23 00:19 | NURSING ---
pt found at nurses station with walker sitting in chair with soiled attends and asking for paper-staff assisted pt back to room-partial bath given-assisted back to bed-this was pts 6th bowel movement today since started on miralax and senakot 10/20 pm-within minutes, pt was trying to get out of bed without assistance again-pt moved to room 302 to be closer to nurses station for safety-bed exit is set on medium setting-pt is oriented to self only and remained cooperative and pleasant
[2023-10-23] MEDS: Menthol/Lanolin/Calamine/Znox 113 GM Tube 1 APPLIC TOPICAL ×4 (06:42→20:50)
[2023-10-23] MEDS: Multivitamin (Healthy Eyes) Capsule 1 CAP PO ×2 (09:15→20:50)
[2023-10-23] MEDS: Metoprolol(XL)Succ 25 MG Tablet PO (09:15)
[2023-10-23] MEDS: Furosemide 40 MG Tablet 80 MG PO (09:15)
[2023-10-23] MEDS: Folic Acid 1 MG Tablet PO (09:15)
[2023-10-23] MEDS: APIXABAN 2.5 MG TABLET (WCH) PO ×2 (09:16→20:59)
[2023-10-23] MEDS: Isosorbide Mononitrate 60 MG Tablet PO (09:16)
[2023-10-23] MEDS: Aspirin 81 MG TAB.CHEW PO (09:16)
[2023-10-23] MEDS: Nystatin Powder 15gm Bottle 1 APPLIC TOPICAL ×2 (09:18→20:51)
[2023-10-23] MEDS: Sertraline 50 MG Tablet PO (09:21)
[2023-10-23] MEDS: Cholecalciferol (Vit D3) 125 MCG CAPSULE (5,000 UNITS) PO (09:21)
--- NOTE | 2023-10-23 09:50 | WOUNDNOTE ---
wound photo: left lower leg
--- NOTE | 2023-10-23 09:59 | WOUNDNOTE ---
wound photo: right lower leg
--- NOTE | 2023-10-23 10:08 | PCM.PN.HOSP ---
Reason for Visit Reason for Visit: Diagnoses Weakness (10/19/23) Objective Data Objective Data Vital Signs: Vital Signs Temp Pulse Resp BP Pulse Ox O2 Del Method O2 Flow Rate 97.6 F L 68 22 H 148/99 H 98 Room Air 97 10/23/23 09:13 10/23/23 09:15 10/23/23 09:13 10/23/23 09:15 10/23/23 09:13 10/23/23 09:13 10/19/23 20:00 Oxygen Flow Rate (L/min) 97 Oxygen Delivery Method Room Air Weight: 199 lb 15.348 oz Body Mass Index (BMI) 29.5 Intake & Output: Intake and Output for Last 24 Hours 10/21/23 10/22/23 10/23/23 23:59 23:59 23:59 Intake Total 650 / 650 300 / 300 Output Total 600 / 600 750 / 750 Balance 50 / 50 -750 / -600 300 / 300 Lab / Micro Data 10/22/23 06:40 10/22/23 06:40 Labs: Laboratory Results - last 24 hr 10/22/23 06:40: Absolute Neuts (auto) 4.1, Hemoglobin A1c 6.3 H Physical Exam Narrative Seen and examined. Patient was confused last night walking to the nursing station therefore room was changed. Patient also had 3-4 bowel movements on stool softener therefore stool softener discontinued Physical exam General: Awake, confused disoriented to time and place cooperative. Not agitated or aggressive HEENT: Atraumatic, PERRLA, EOMI, Normocephalic Oral: No Gingival or Mucosal Lesions/ Ulcerations Neck: Supple, No JVD, Negative Carotid Bruits Chest wall/Lungs: Air entry diminished in bilateral lung bases. No crepitation/rhonchi Cardiovascular: Regular rate, Regular Rhythm, Normal S1, Normal S2, pacemaker. Systolic murmur present. Abdomen: Bowel Sounds Present, Soft, Non Tender, Non-Distended : No dysuria. No renal angle tenderness. No suprapubic tenderness. Extremities: Lower extremity edema with superficial blisters and seepage, Capillary Refill Less than 3 Seconds Skin: No rashes, No breakdown Musculoskeletal: No Tenderness to Palpation of Joints or Extremities Neurological: Cranial nerves II-XII grossly intact, DTR 2+/4. No acute focal neurological deficit. Psych/Mental Status: Flat affect Assessment & Plan Assessment/Plan (1) Weakness: PLAN: Plan Patient is an 87-year-old gentleman admitted with increasing generalized weakness and intermittent confusion 1. Physical deconditioning with adult failure to thrive, debility, difficulty of ambulation, loss of equilibrium/balance - Requested for PT OT eval and social problems specialist to assist with discharge planning 10/20: Case management to assist with disposition 10/22: Diarrhea due to stool softener senna S and MiraLAX. Senna is discontinued. MiraLAX made as needed. I talked to the patient's . 2. Dementia with intermittent confusion 10/20: No fever. No acute change in mental status noticed today 10/21: Intermittent sometimes confusion/lethargy. Overall no major change. 10/22: Patient is confused and disoriented. Not aggressive. Does not need antipsychotic medication. Orientation cues 3. 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 Recent echo From 09/17/2023 demonstrated EF of 30% 2D echo 09/17/2023 Interpretation Summary Normal LV size. Mild concentric left ventricular hypertrophy. RA severely enlarged. The left ventricular ejection fraction is 30 %. Compared to previous study, the left ventricular systolic function is the same.. 10/22: No shortness of breath or chest pain 4. Coronary artery disease ? With previous PCI with ALAN. Remains on guideline directed medical therapy 5. History of ventricular tachycardia ? Status post iCD placement in July 2017 at [facility], and subsequent Bi-V upgrade of his ICD on January 08, 2019 6. Hypertension - Blood pressure controlled, home medications continued with dose adjustment as needed 7. Dyslipidemia -Patient is on statin therapy, continued at home dose 8. Paroxysmal A-fib/flutter ? Rate controlled on systemic anticoagulation with apixaban 9. Type 2 diabetes ? Without complications managed with diet only 10. Depression with anxiety ? Patient is on sertraline 11. Chronic kidney disease stage V ? Patient baseline creatinine has ranged from 2.7-4.6. Creatinine on admission was 3.09 monitoring with daily BMPs 10/20 her creatinine is similar around 3.1-3.2 since admission. 12. DVT prophylaxis -Patient already on apixaban Charges/Coding Visit Charges Inpatient E&M: 66786 Subs Hosp L2
[2023-10-23] MEDS: Spironolactone 25 MG Tablet PO (10:14)
--- NOTE | 2023-10-23 13:57 | CASEMGMT ---
Received vm from pt CM at the [facility]. He wanted to leave his number in case the patient had any needs he could help with. He is aware that pt plan is SNF. His number is [phone].
[2023-10-23] MEDS: Atorvastatin Calcium 20 MG Tablet PO (20:50)
[2023-10-24 04:00] VITALS: BP 139/95; PULSE 67; RESP 15; TEMP 37.2; O2SAT 95
[2023-10-24] MEDS: Menthol/Lanolin/Calamine/Znox 113 GM Tube 1 APPLIC TOPICAL (06:39)
[2023-10-24 07:26] LABS: Absolute Lymphocyte Count 0.77 X10^3/uL (0.83-4.51); Absolute Neutrophil Count 3.6 X10^3/uL (2.0-7.7); Basophil# 0.02 X10^3/uL; Basophil% 0.4 % (0-1); Eosinophil# 0.08 X10^3/uL; Eosinophils% 1.6 % (0-5); Hematocrit 44.4 % (40-54); Hemoglobin 13.9 g/dL (13.0-16.5); Lymphocyte # 0.77 X10^3/ul (0.83-4.51); Lymphocyte % 15.1 % (19-41); Mean Corp Hgb Conc 31.3 g/dL (32-36); Mean Corpuscular Volume 102.3 fL (80-94); Mean Platelet Vol. 11.2 fl (6.2-12.0); Monocyte# 0.57 X10^3/uL; Monocyte% 11.2 % (0-10); NRBC Flagged by Analyzer 0 % (0-5); Neutrophil # 3.63 X10^3/uL (2.7-7.7); Neutrophil % 71.3 % (47-70); Platelet Count 147 K/mm3 (150-450); RBC Distribution Width CV 15.4 % (11.6-14.6); RBC Distribution Width SD 56.6 fl (35.1-43.9); Red Blood Count 4.34 M/mm3 (4.6-6.2); White Blood Count 5.1 K/mm3 (4.4-11.0)
[2023-10-24 07:32] LABS: Anion Gap 13 (5-15); BUN 58 mg/dL (7-18); BUN/Creat Ratio 16.2 RATIO (10-20); Calcium,Total 9.9 mg/dL (8.5-10.1); Chloride 102 mmol/L (98-107); Creatinine, Serum 3.59 mg/dL (0.70-1.30); EST Glomerular Filtration Rate 17 mL/min (>60); Est Glom Filt Rate - Afr Amer 21 mL/min (>60); Estimated Creatinine Clearance 16.14 ml/min; Glucose 153 mg/dL (74-106); Potassium 3.8 mmol/L (3.5-5.1); Sodium Level 139 mmol/L (136-145)
[2023-10-24 09:09] VITALS: BP 138/92; PULSE 69; RESP 20; TEMP 36.4; O2SAT 96
[2023-10-24] MEDS: Multivitamin (Healthy Eyes) Capsule 1 CAP PO (09:11)
[2023-10-24] MEDS: Folic Acid 1 MG Tablet PO (09:11)
[2023-10-24] MEDS: Isosorbide Mononitrate 60 MG Tablet PO (09:11)
[2023-10-24] MEDS: Furosemide 40 MG Tablet 80 MG PO (09:11)
[2023-10-24] MEDS: Cholecalciferol (Vit D3) 125 MCG CAPSULE (5,000 UNITS) PO (09:11)
[2023-10-24 09:12] VITALS: BP 138/92; PULSE 69
[2023-10-24] MEDS: Nystatin Powder 15gm Bottle 1 APPLIC TOPICAL (09:12)
[2023-10-24] MEDS: Sertraline 50 MG Tablet PO (09:12)
[2023-10-24] MEDS: Metoprolol(XL)Succ 25 MG Tablet PO (09:12)
[2023-10-24] MEDS: Aspirin 81 MG TAB.CHEW PO (09:12)
[2023-10-24] MEDS: Spironolactone 25 MG Tablet PO (09:13)
[2023-10-24] MEDS: APIXABAN 2.5 MG TABLET (WCH) PO (09:17)
--- NOTE | 2023-10-24 09:28 | PCM.TXEXTCAR ---
Diet Diet Order/Speech Therapy: 10/19/23 01:14 Diet: Cardiac - Heart Healthy Food consistency:: Regular Liquid Consistency:: Regular/Thin Routine Orders/Code Status Suppository Type: Dulcolax 10mg Suppository Frequency: Daily PRN Code Status: Full Code Wound(s) rt leg: Wound Type: Stasis Ulcer rt le: Wound Type: Stasis Ulcer lt le: Wound Type: Stasis Ulcer left lower leg: Wound Type: Stasis Ulcer bilateral lower legs: Wound Type: scattered drying blisters Dressing Change: Adaptic Therapies Weight Bearing: Weight bearing as tolerated Extremity Affected:: Bilateral Lower Physical Therapy: Eval and Treat Occupational Therapy: Eval and Treat Speech Therapy: Eval and Treat Problem/Diagnosis (1) Weakness: Status: Acute Code(s): R53.1 - Weakness Plan Patient is an 87-year-old gentleman admitted with increasing generalized weakness and intermittent confusion 1. Physical deconditioning with adult failure to thrive, debility, difficulty of ambulation, loss of equilibrium/balance - Requested for PT OT eval and social service manager to assist with discharge planning 10/20: Case management to assist with disposition 10/22: Diarrhea due to stool softener senna S and MiraLAX. Senna is discontinued. MiraLAX made as needed. I talked to the patient's . 2. Dementia with intermittent confusion 10/20: No fever. No acute change in mental status noticed today 10/21: Intermittent sometimes confusion/lethargy. Overall no major change. 10/22: Patient is confused and disoriented. Not aggressive. Does not need antipsychotic medication. Orientation cues 3. 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 Recent echo From 09/17/2023 demonstrated EF of 30% 2D echo 09/17/2023 Interpretation Summary Normal LV size. Mild concentric left ventricular hypertrophy. RA severely enlarged. The left ventricular ejection fraction is 30 %. Compared to previous study, the left ventricular systolic function is the same.. 10/22: No shortness of breath or chest pain 4. Coronary artery disease ? With previous PCI with ALAN. Remains on guideline directed medical therapy 5. History of ventricular tachycardia ? Status post iCD placement in July 2017 at [facility], and subsequent Bi-V upgrade of his ICD on January 08, 2019 6. Hypertension - Blood pressure controlled, home medications continued with dose adjustment as needed 7. Dyslipidemia -Patient is on statin therapy, continued at home dose 8. Paroxysmal A-fib/flutter ? Rate controlled on systemic anticoagulation with apixaban 9. Type 2 diabetes ? Without complications managed with diet only 10. Depression with anxiety ? Patient is on sertraline 11. Chronic kidney disease stage V ? Patient baseline creatinine has ranged from 2.7-4.6. Creatinine on admission was 3.09 monitoring with daily BMPs 10/20 her creatinine is similar around 3.1-3.2 since admission. 12. DVT prophylaxis -Patient already on apixaban Allergies/Procedures Done in Hospital Allergies clarithromycin [From Biaxin] Allergy (Verified 10/18/23 18:39) PT UNSURE OF REACTION quinapril Allergy (Verified 10/18/23 18:39) Angioedema Jiebkcf-UQI-OjW Reductase Inhibitor [Rfobyvm-Nil-Hvc Reductase Inhibitor] Allergy (Verified 10/18/23 18:39) Hives and myalgias valsartan [From Diovan] Allergy (Verified 10/18/23 18:39) PT UNSURE OF REACTION ezetimibe [From Zetia] Adverse Reaction (Verified 10/18/23 18:39) diarrhea simvastatin [From Vytorin] Adverse Reaction (Verified 10/18/23 18:39) PT UNSURE OF REACTION Type of Care/Length of Stay Estimated LOS: Convalescent Care Less Than 30 days Type of Care Needed: Skilled Rehab Potential: Good Prognosis: Good Additional Orders/Day of Discharge Day of Discharge: 10/24/23 Discharge Plan Admission Admit Date/Time: 10/19/23 00:40 Primary Reason for Your Visit: Generalized weakness, dementia/debility Attending Provider: Michael Pugh Primary Care Provider: Perry Olivas Consulting Providers: Jose Ibarra; Barrera Thorpe; Jorge Adams Instructions Patient Instructions: ED Weakness (Uncertain Cause) Discharge Orders/Prescriptions Prescriptions: Continued sertraline 50 mg tablet 50 mg PO DAILY Qty: 60 3RF rosuvastatin 10 mg tablet 10 mg PO DAILY clobetasol 0.05 % solution 1 applic topical QAM AND QPM PRN (Reason: LESION) cholecalciferol (vitamin D3) 125 mcg (5,000 unit) tablet 125 mcg PO DAILY PreserVision AREDS [id number] vooc-kt-yyex capsule 1 cap PO BID spironolactone 25 mg tablet 25 mg PO DAILY Qty: 60 3RF nitroglycerin 0.4 mg tablet, sublingual 0.4 mg SUBLINGUAL Q5-15M PRN (Reason: Cardiac/Chest Pain) Qty: 25 3RF furosemide [Lasix] 40 mg tablet 80 mg PO DAILY albuterol sulfate 90 mcg/actuation HFA aerosol inhaler 2 puff inhalation Q4-6H PRN (Reason: shortness of breath or wheezing) Qty: 8.5 0RF aspirin 81 MG tablet,chewable 81 mg PO DAILY lidocaine 5 % adhesive patch,medicated 1 patch topical DAILY Qty: 15 0RF Rx Instructions: leave on most painful area for up to 12 hrs nystatin 100,000 unit/gram powder 0 applic topical TID (DME) Handicap Plaquard Qty: 1 0RF Dose Instruction: As directed Rx Instructions: LIFETIME DURATION: will need renewal 06/03/2028 metoprolol succinate 25 mg tablet extended release 24 hr 25 mg PO DAILY Qty: 90 3RF Eliquis 2.5 mg tablet 2.5 mg PO BID Qty: 180 3RF isosorbide mononitrate 60 mg tablet extended release 24 hr 60 mg PO DAILY Qty: 90 4RF folic acid 1 mg tablet 1 mg PO QDAY Qty: 90 3RF Referrals / Follow Up: Perry Olivas MD [Primary Care Provider] - 3-5 Days if not improving Disposition Disposition (needs filled in before D/C Order can be placed): Home, Self Care
--- NOTE | 2023-10-24 09:34 | PCM.DC.SUM ---
Providers Date of Admission: 10/19/23 Date of Discharge: 10/24/23 Primary Care Physician: Dr. Perry Olivas MD Consultations 10/21/23 14:45 Consult: Onc/Wound/casting machine adjuster Routine Comment: Reason for Consult:: BLE discoloration, opee stasis ulcers, drainage Comments:: toes purple hue and cool to touch-open area on left 3rd Reason For Visit: WEAKNESS AND FTT Diagnosis Discharge Diagnosis (1) Weakness: Status: Acute Code(s): R53.1 - Weakness Plan Patient is an 87-year-old gentleman admitted with increasing generalized weakness and intermittent confusion 1. Physical deconditioning with adult failure to thrive, debility, difficulty of ambulation, loss of equilibrium/balance - Requested for PT OT eval and clinical social work therapist to assist with discharge planning 10/20: Case management to assist with disposition 10/22: Diarrhea due to stool softener senna S and MiraLAX. Senna is discontinued. MiraLAX made as needed. I talked to the patient's . 10/23: No acute issues. 2. Dementia with intermittent confusion 10/20: No fever. No acute change in mental status noticed today 10/21: Intermittent sometimes confusion/lethargy. Overall no major change. 10/22: Patient is confused and disoriented. Not aggressive. Does not need antipsychotic medication. Orientation cues 10/23: Patient is not agitated. He answers simple questions. Dementia and forgetfulness. 3. 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 Recent echo From 09/17/2023 demonstrated EF of 30% 2D echo 09/17/2023 Interpretation Summary Normal LV size. Mild concentric left ventricular hypertrophy. RA severely enlarged. The left ventricular ejection fraction is 30 %. Compared to previous study, the left ventricular systolic function is the same.. 10/22: No shortness of breath or chest pain 4. Coronary artery disease ? With previous PCI with ALAN. Remains on guideline directed medical therapy 5. History of ventricular tachycardia ? Status post iCD placement in July 2017 at [facility], and subsequent Bi-V upgrade of his ICD on January 08, 2019 6. Hypertension - Blood pressure controlled, home medications continued with dose adjustment as needed 7. Dyslipidemia -Patient is on statin therapy, continued at home dose 8. Paroxysmal A-fib/flutter ? Rate controlled on systemic anticoagulation with apixaban 9. Type 2 diabetes ? Without complications managed with diet only 10. Depression with anxiety ? Patient is on sertraline 11. Chronic kidney disease stage V ? Patient baseline creatinine has ranged from 2.7-4.6. Creatinine on admission was 3.09 monitoring with daily BMPs 10/20 her creatinine is similar around 3.1-3.2 since admission. 10/23: Creatinine 3.59 but that within his baseline. 12. DVT prophylaxis -Patient already on apixaban Medications at Discharge Home Medications aspirin 81 mg chewable tablet 81 mg PO DAILY 06/30/17 sertraline 50 mg tablet 50 mg PO DAILY #60 tabs 11/13/18 cholecalciferol (vitamin D3) 125 mcg (5,000 unit) tablet 125 mcg PO DAILY 01/05/21 clobetasol 0.05 % scalp solution 1 applic topical QAM AND QPM PRN LESION 01/05/21 rosuvastatin 10 mg tablet 10 mg PO DAILY 01/05/21 vitamins A,C,B-zskr-qghphp 4,296 mcg-226 mg-90 mg capsule (PreserVision AREDS) 1 cap PO BID 01/05/21 nitroglycerin 0.4 mg sublingual tablet 0.4 mg sublingual Q5-15M PRN Cardiac/Chest Pain #25 tabs 01/15/23 lidocaine 5 % topical patch 1 patch topical DAILY #15 ea 02/16/23 spironolactone 25 mg tablet 25 mg PO DAILY #60 tabs 04/11/23 Handicap Plaquard #1 ea 06/03/23 metoprolol succinate 25 mg tablet,extended release 24 hr 25 mg PO DAILY Dose was decreased #90 tabs 07/30/23 albuterol sulfate 90 mcg/actuation aerosol inhaler 2 puff inhalation Q4-6H PRN shortness of breath or wheezing #8.5 grams 08/15/23 furosemide 40 mg tablet (Lasix) 80 mg PO DAILY 08/15/23 apixaban 2.5 mg tablet (Eliquis) 2.5 mg PO BID #180 tabs 08/26/23 isosorbide mononitrate 60 mg tablet,extended release 24 hr 60 mg PO DAILY #90 tabs 09/02/23 folic acid 1 mg tablet 1 mg PO QDAY #90 tabs 10/17/23 nystatin 100,000 unit/gram topical powder 0 applic topical TID 10/18/23 Physical Exam Narrative Seen and examined on the day of discharge. Patient is awake and seems to be on baseline. He answers question and sometimes after few words. This is inconsistent with what his reported. Physical exam General: Awake, intermittent disoriented to time and place, cooperative. Not agitated or aggressive HEENT: Atraumatic, PERRLA, EOMI, Normocephalic Oral: No Gingival or Mucosal Lesions/ Ulcerations Neck: Supple, No JVD, Negative Carotid Bruits Chest wall/Lungs: Air entry diminished in bilateral lung bases. No crepitation/rhonchi Cardiovascular: Regular rate, Regular Rhythm, Normal S1, Normal S2, pacemaker. Systolic murmur present. Abdomen: Bowel Sounds Present, Soft, Non Tender, Non-Distended : No dysuria. No renal angle tenderness. No suprapubic tenderness. Extremities: Lower extremity edema with superficial blisters and seepage, Capillary Refill Less than 3 Seconds Skin: No rashes, No breakdown Musculoskeletal: No Tenderness to Palpation of Joints or Extremities Neurological: Cranial nerves II-XII grossly intact, DTR 2+/4. No acute focal neurological deficit. Psych/Mental Status: Flat affect Weight / BMI Weight Weight: 199 lb 15.348 oz Body Mass Index (BMI) 29.5 ABG / Lab / Microbiology Data 10/24/23 05:40 10/24/23 05:40 Laboratory: Laboratory Results - last 24 hr 10/24/23 05:40: WBC 5.1, RBC 4.34 L, Hgb 13.9, Hct 44.4, MCV 102.3 H, MCH 32.0, MCHC 31.3 L, RDW Std Deviation 56.6 H, RDW Coeff of Roger 15.4 H, Plt Count 147 L, MPV 11.2, Immature Gran % (Auto) 0.400, Neut % (Auto) 71.3 H, Lymph % (Auto) 15.1 L, [place] % (Auto) 11.2 H, Eos % (Auto) 1.6, Baso % (Auto) 0.4, Absolute Neuts (auto) 3.6, Absolute Lymphs (auto) 0.77 L, Nucleated RBC % 0, Sodium 139, Potassium 3.8, Chloride 102, Carbon Dioxide 24.0, Anion Gap 13, BUN 58 H, Creatinine 3.59 H, Estim Creat Clear Calc 16.14, Est GFR (MDRD) Af Amer 21 L, Est GFR (MDRD) Non-Af 17 L, BUN/Creatinine Ratio 16.2, Glucose 153 H, Calcium 9.9 Meaningful Use Info Meaningful Use Meaningful Use Diagnoses (Choose all that apply): None applicable Ischemic Stroke Statin Dosing Therapy Reference: STATIN DOSE THERAPY REFERENCE: * Patients > 75 years receive moderate or high dose statin therapy. * Patients 75 years or YOUNGER should receive HIGH intensity statin dose unless contraindicated. You will be required to document reason for non-treatment if statin daily dose does not meet guidelines. HIGH DOSE STATIN THERAPY DAILY Atorvastatin > than or = to 40 mg Rosuvastatin > than or = to 20 mg Amlodipine + Atorvastatin > than or = to 2.5/40 mg Ezetimibe + Simvastatin 10/80 mg Simvastatin 80mg Discharge Plan Admission Admit Date/Time: 10/19/23 00:40 Primary Reason for Your Visit: Generalized weakness, dementia/debility Attending Provider: Michael Pugh Primary Care Provider: Perry Olivas Consulting Providers: Jose Ibarra; Barrera Thorpe; Jorge Adams Instructions Patient Instructions: ED Weakness (Uncertain Cause) Discharge Orders/Prescriptions Prescriptions: Continued sertraline 50 mg tablet 50 mg PO DAILY Qty: 60 3RF rosuvastatin 10 mg tablet 10 mg PO DAILY clobetasol 0.05 % solution 1 applic topical QAM AND QPM PRN (Reason: LESION) cholecalciferol (vitamin D3) 125 mcg (5,000 unit) tablet 125 mcg PO DAILY PreserVision AREDS [id number] avpr-se-tfgy capsule 1 cap PO BID spironolactone 25 mg tablet 25 mg PO DAILY Qty: 60 3RF nitroglycerin 0.4 mg tablet, sublingual 0.4 mg SUBLINGUAL Q5-15M PRN (Reason: Cardiac/Chest Pain) Qty: 25 3RF furosemide [Lasix] 40 mg tablet 80 mg PO DAILY albuterol sulfate 90 mcg/actuation HFA aerosol inhaler 2 puff inhalation Q4-6H PRN (Reason: shortness of breath or wheezing) Qty: 8.5 0RF aspirin 81 MG tablet,chewable 81 mg PO DAILY lidocaine 5 % adhesive patch,medicated 1 patch topical DAILY Qty: 15 0RF Rx Instructions: leave on most painful area for up to 12 hrs nystatin 100,000 unit/gram powder 0 applic topical TID (DME) Handicap Plaquard Qty: 1 0RF Dose Instruction: As directed Rx Instructions: LIFETIME DURATION: will need renewal 06/03/2028 metoprolol succinate 25 mg tablet extended release 24 hr 25 mg PO DAILY Qty: 90 3RF Eliquis 2.5 mg tablet 2.5 mg PO BID Qty: 180 3RF isosorbide mononitrate 60 mg tablet extended release 24 hr 60 mg PO DAILY Qty: 90 4RF folic acid 1 mg tablet 1 mg PO QDAY Qty: 90 3RF Referrals / Follow Up: Perry Olivas MD [Primary Care Provider] - 3-5 Days if not improving Disposition Disposition (needs filled in before D/C Order can be placed): Home, Self Care Charges/Coding Visit Charges Inpatient E&M: 48586 Disch Hosp >30min
--- NOTE | 2023-10-24 12:00 | CASEMGMT ---
Social Work -discharge note Received update from Felipa in admissions at [facility] transitional care unit. Insurance authorization received for admission to TCU. Updated doctor and faxed transfer summary and medication list to the TCU. Met with patient and patient's in room, updated to insurance approval and plan for discharge to TCU today. expressed much appreciation for the update and work to get patient into the TCU. Plan: skilled level of care at [facility] TCU, anticipated a 30 day or less length of stay. -MIRZA Mead, BUSINESS OPERATIONS ANALYST *This note was generated with [employer] dictation software. It may contain incorrect words, spelling, and punctuation that were not noted in review of the chart prior to signing*
[2023-10-24 12:04] VITALS: BP 127/90; PULSE 70; RESP 20; TEMP 36.9; O2SAT 94
== END 2023-10-24 12:52 | disposition skilled nursing facility (03) ==
LOC: ED 23:01 → MS3 10-19 01:46
PROVIDERS: Anesthesiology; Internal Medicine; Physician Assistant; Admitting Provider Family Medicine; Emergency Provider Emergency Medicine; PCP Internal Medicine; Referring Provider Family Medicine; Visit Provider Internal Medicine
DX: I13.2 Hypertensive heart and chronic kidney disease with heart failure and with stage 5 chronic kidney disease, or end stage renal disease (principal); N18.5 Chronic kidney disease, stage 5; I50.42 Chronic combined systolic (congestive) and diastolic (congestive) heart failure; F03.90 Unspecified dementia, unspecified severity, without behavioral disturbance, psychotic disturbance, mood disturbance, and anxiety; E11.22 Type 2 diabetes mellitus with diabetic chronic kidney disease; E11.59 Type 2 diabetes mellitus with other circulatory complications; R53.1 Weakness; I25.10 Atherosclerotic heart disease of native coronary artery without angina pectoris; Z79.82 Long term (current) use of aspirin; R62.7 Adult failure to thrive; I87.2 Venous insufficiency (chronic) (peripheral); R53.81 Other malaise; Z79.01 Long term (current) use of anticoagulants; Z87.891 Personal history of nicotine dependence; E78.5 Hyperlipidemia, unspecified; I25.5 Ischemic cardiomyopathy; Z95.810 Presence of automatic (implantable) cardiac defibrillator; R06.02 Shortness of breath; Z79.899 Other long term (current) drug therapy; F41.8 Other specified anxiety disorders
CPT/HCPCS: 36415; 70450; 71045; 80048; 81001; 82607; 83036; 83735; 84100; 84484; 85025; 93005; 94640; 96374; 97162; 97166; 97530; 97535; 99221; 99283; A4216; G0378

== ENCOUNTER 2023-10-24 13:19 | Inpatient (IN) | payer MEDICARE, SELFPAY ==
[2023-10-24 13:38] VITALS: BP 125/87; PULSE 71; RESP 18; TEMP 35.8; O2SAT 93; BMI 29.2
[2023-10-24] MEDS: Atorvastatin Calcium 20 MG Tablet PO (20:51)
[2023-10-24] MEDS: APIXABAN 2.5 MG TABLET (WCH) PO (20:51)
[2023-10-24] MEDS: Multivitamin (Healthy Eyes) Capsule 1 CAP PO (20:51)
[2023-10-24] MEDS: 0.9% Saline Lock 10 ML Syringe IV (21:02)
--- NOTE | 2023-10-24 21:10 | HP.PCM_ITS ---
HPI - General General Date of Admission: 10/24/23 Date of Service: 10/24/23 Chief Complaint: Here for rehabilitation. HPI Narrative 10/18/2023 MARCOS BECK, is a 87 Male who presents to [facility] ED weakness. Going up stairs, legs wound not move, no SOB. EMS called, able to stand up, refused transport. EMG called again, SOB. CT brain negative, Chest X-ray showed small left pleural effusion. Creatinine 3.11, Troponin 99, 2nd troponin 99, oxygen for pulsox 88%. 10/19/2023 Admit to [facility]. PT/OT Debility. Continue medication for HFrEF. Consider dementia. 10/19/2023 Weakness, intermittent confusion. Cultures negative to date. EF 30%. 10/20/2023 Awake, interactive, confused. PT/OT for discharge. Blood pressure controlled. Eliquis for atrial fibrillation/atrial flutter. Creatinine near baseline. 10/21/2023 Constipated. Creatinine 3.1 to 3.2. 10/22/2023 Worse today per , constipated. PT/OT for disposition. Intermittent confusion, lethargy. Creatinine stable. 10/23/2023 Confused, 3-4 bowel movements. No antipsychotic needed. No SOB. 10/24/2023 Admit to TCU with debility, here for rehabilitation, strengthening, prior to discharge home with . Resident requested no laxatives, only stool softeners. Resident son Willis told me resident's mental faculties have been declining for one year, prior, his mind was sharp. 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. During my entire interview, resident did not speak. states he communicates with her via hand gestures, I asked if she could get him to talk, and resident continued to be mute. REPLACED BY [facility] Medical History (Updated 10/24/23 @ 21:[address] 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 Overweight Paroxysmal atrial flutter Phlebitis alone Secondary pulmonary arterial hypertension Syncope Transient hypotension Type 2 diabetes mellitus without complications Weakness Home Medications aspirin 81 mg chewable tablet 81 mg PO DAILY heart 06/30/17 [History Last Taken 10/24/23] sertraline 50 mg tablet 50 mg PO DAILY mood #60 tabs 11/13/18 [Rx Last Taken 05/21/22] cholecalciferol (vitamin D3) 125 mcg (5,000 unit) tablet 125 mcg PO DAILY supplement 01/05/21 [History Last Taken 05/20/22] clobetasol 0.05 % scalp solution 1 applic topical QAM AND QPM PRN LESION 01/05/21 [History Last Taken 05/20/22] rosuvastatin 10 mg tablet 10 mg PO DAILY cholesterol 01/05/21 [History Last Taken 05/21/22] vitamins A,C,O-hrxq-urykcj 4,296 mcg-226 mg-90 mg capsule (PreserVision AREDS) 1 cap PO BID supplement 01/05/21 [History Last Taken 05/21/22] nitroglycerin 0.4 mg sublingual tablet 0.4 mg sublingual Q5-15M PRN Cardiac/Chest Pain #25 tabs 01/15/23 [Rx Last Taken Unknown] lidocaine 5 % topical patch 1 patch topical DAILY pain #15 ea 02/16/23 [Rx Last Taken Unknown] spironolactone 25 mg tablet 25 mg PO DAILY fluid pill #60 tabs 04/11/23 [Rx Last Taken Unknown] Handicap Plaquard #1 ea 06/03/23 [Rx Last Taken Unknown] metoprolol succinate 25 mg tablet,extended release 24 hr 25 mg PO DAILY Dose was decreased #90 tabs 07/30/23 [Rx Last Taken Unknown] albuterol sulfate 90 mcg/actuation aerosol inhaler 2 puff inhalation Q4-6H PRN shortness of breath or wheezing #8.5 grams 08/15/23 [Rx Last Taken Unknown] furosemide 40 mg tablet (Lasix) 80 mg PO DAILY fluid pill 08/15/23 [History Last Taken Unknown] apixaban 2.5 mg tablet (Eliquis) 2.5 mg PO BID blood thinner #180 tabs 08/26/23 [Rx Last Taken 10/24/23] isosorbide mononitrate 60 mg tablet,extended release 24 hr 60 mg PO DAILY heart #90 tabs 09/02/23 [Rx Last Taken Unknown] folic acid 1 mg tablet 1 mg PO QDAY supplement #90 tabs 10/17/23 [Rx Last Taken Unknown] nystatin 100,000 unit/gram topical powder 1 applic topical TID yeast/moisture 10/18/23 [History Last Taken Unknown] Allergy/AdvReac Type Severity Reaction Status Date / Time clarithromycin [From Biaxin] Allergy PT UNSURE Verified 10/18/23 18:39 OF REACTION quinapril Allergy Angioedema Verified 10/18/23 18:39 Ytrmmqk-QYE-OsJ Reductase Allergy Hives and Verified 10/18/23 18:39 Inhibitor myalgias [Kojuczi-Bjt-Lcb Reductase Inhibitor] valsartan [From Diovan] Allergy PT UNSURE Verified 10/18/23 18:39 OF REACTION ezetimibe [From Zetia] AdvReac diarrhea Verified 10/18/23 18:39 simvastatin [From Vytorin] AdvReac PT UNSURE Verified 10/18/23 18:39 OF REACTION Family History Mother Diabetes Sister Cancer pancreatic Other Bilateral lower extremity edema Surgical History History of cardioversion (07/11/20) History of coronary artery stent placement (08/01/17) Presence of automatic implantable cardioverter-defibrillator (07/05/17) Presence of biventricular implantable cardioverter-defibrillator (ICD) (01/08/19) Social History (Updated 10/24/23 @ 21:[address] Nick Hyde MD) household members: spouse Smoking Status: Former smoker how long ago did patient quit smoking: May 1988 alcohol intake: current alcohol intake frequency: holidays/special occasions only caffeine: No ROS Constitutional Constitutional: Denies chills, fever(s) or weight gain ENT HEENT: Denies headache(s), nasal congestion or nasal discharge Cardiovascular Cardiovascular: Denies chest pain or palpitations Respiratory/Chest Respiratory/Chest: Denies cough, excessive phlegm production or shortness of breath with exertion Gastrointestinal Gastrointestinal: Denies abdominal pain, nausea or vomiting Genitourinary Genitourinary: Denies dysuria Musculoskeletal Musculoskeletal: Denies joint pain or joint swelling Integumentary Integumentary: Denies rash or wounds Neurologic Neurologic: Denies focal weakness, numbness or tingling Psychiatric Psychiatric: Denies anxiety, auditory hallucinations, depression, homicidal ideation or suicidal ideation Vital Signs Vital Signs Vital Signs: 10/24/23 14:42 10/24/23 13:38 Temperature 96.4 F L Temperature Source Temporal Pulse Rate 71 Pulse Rhythm Regular Pulse Strength Normal (2+) Respiratory Rate 18 Respiratory Effort Normal Non-Labored Respiratory Depth Normal Respiratory Pattern Normal Blood Pressure 125/87 H Blood Pressure Mean 99 Blood Pressure Source Monitor Blood Pressure Position Sitting Blood Pressure Location Right Arm Pulse Ox 93 Oxygen Delivery Method Room Air Room Air Physical Exam Const alert General Appearance: cooperative HEENT normocephalic Eyes PERRL and EOMs intact bilaterally Neck supple, no JVD and no carotid bruits Resp normal respiratory effort, normal air movement and clear to auscultation bilaterally Cardio regular rate and regular rhythm GI normal to inspection, nondistended, normoactive bowel sounds, non-tender and non-distended Extremity normal capillary refill General Extremity: Negative for edema Skin no rashes or lesions noted General Skin Exam: no breakdown Psych affect normal Appearance: appropriate Assessment & Plan Assessment/Plan (1) Debility: (2) Weakness: (3) Acute delirium: (4) NSTEMI (non-ST elevated myocardial infarction): (5) Acute respiratory failure with hypoxia: (6) Constipation: (7) Chronic kidney disease, stage 5: (8) Coronary artery disease: (9) Depression: (10) Hyperlipidemia: QUALIFIERS: Hyperlipidemia type: pure hypercholesterolemia Qualified Code(s): E78.00 - Pure hypercholesterolemia, unspecified; E78.00 - Pure hypercholesterolemia, unspecified; E78.00 - Pure hypercholesterolemia, unspecified; E78.0 - Pure hypercholesterolemia (11) HFrEF (heart failure with reduced ejection fraction): (12) Atrial fibrillation: PLAN: Plan 87 year old male with below past medical history hospitalized for weakness, NSTEMI, acute delirium, acute respiratory failure hypoxia, complicated by constpation, admitted to TCU with debility, here for rehabilitation, strengthening, prior to discharge home with . * Debility - PT/OT. * Pain - Tylenol 1000mg q6 prn pain (1-10), Lidoderm patch 1 patch td daily. * Bowel - colace 100mg bid, Dulcolax 10mg pr daily prn. * Adult immunization - Administer pneumonia vaccine, covid vaccine, flu vaccine as appropriate. * DVT prophylaxis - on Eliquis. * Shortness of breath - Albuterol 2 puffs q4h prn. * Atrial fibrillation - Metoprolol succinate 25mg daily, Eliquis 2.5mg bid. * Hyperlipidemia - Atorvastatin 20mg qhs. * Vitamin D deficiency - D3 125mcg daily. * Folate deficiency - Folic acid 1mg daily. * HFrEF - Metoprolol succinate 25mg daily, Isosorbide 60mg daily, Spironolactone 25mg daily, Furosemide 80mg daily. * Coronary artery disease - Metoprolol succinate 25mg daily, Isosorbide 60mg daily, Eliquis 2.5mg bid, NTG 0.4mg sl q5m prn. * Macular degeneration - Healthy Eyes 1 capsule bid. * Tinea cruris - Nystatin powder topical bid. * Depression - Sertraline 50mg daily, stable chronic intermediate use, GDR not recommended.
[2023-10-24] MEDS: Docusate Sodium 100 MG Capsule PO (23:10)
[2023-10-25 05:52] LABS: Absolute Lymphocyte Count 1.08 X10^3/uL (0.83-4.51); Absolute Neutrophil Count 4.1 X10^3/uL (2.0-7.7); Basophil# 0.02 X10^3/uL; Basophil% 0.3 % (0-1); Eosinophil# 0.11 X10^3/uL; Eosinophils% 1.9 % (0-5); Hematocrit 45.7 % (40-54); Hemoglobin 14.5 g/dL (13.0-16.5); Lymphocyte # 1.08 X10^3/ul (0.83-4.51); Lymphocyte % 18.2 % (19-41); Mean Corp Hgb Conc 31.7 g/dL (32-36); Mean Corpuscular Hgb 32.1 pg (27.0-32.0); Mean Corpuscular Volume 101.1 fL (80-94); Mean Platelet Vol. 11.1 fl (6.2-12.0); Monocyte# 0.63 X10^3/uL; Monocyte% 10.6 % (0-10); NRBC Flagged by Analyzer 0.3 % (0-5); Neutrophil # 4.08 X10^3/uL (2.7-7.7); Neutrophil % 68.7 % (47-70); Platelet Count 156 K/mm3 (150-450); RBC Distribution Width CV 15.4 % (11.6-14.6); RBC Distribution Width SD 56.2 fl (35.1-43.9); Red Blood Count 4.52 M/mm3 (4.6-6.2); White Blood Count 5.9 K/mm3 (4.4-11.0)
[2023-10-25 06:00] VITALS: BMI 64.4
[2023-10-25 06:30] LABS: Anion Gap 9 (5-15); BUN 58 mg/dL (7-18); BUN/Creat Ratio 16.6 RATIO (10-20); Calcium,Total 10.1 mg/dL (8.5-10.1); Chloride 104 mmol/L (98-107); Creatinine, Serum 3.49 mg/dL (0.70-1.30); EST Glomerular Filtration Rate 18 mL/min (>60); Est Glom Filt Rate - Afr Amer 21 mL/min (>60); Estimated Creatinine Clearance 16.53 ml/min; Glucose 139 mg/dL (74-106); Sodium Level 137 mmol/L (136-145)
[2023-10-25 07:10] VITALS: RESP 17
[2023-10-25] MEDS: Folic Acid 1 MG Tablet PO (09:28)
[2023-10-25] MEDS: Furosemide 40 MG Tablet 80 MG PO (09:28)
[2023-10-25] MEDS: Spironolactone 25 MG Tablet PO (09:28)
[2023-10-25] MEDS: Multivitamin (Healthy Eyes) Capsule 1 CAP PO ×2 (09:29→21:26)
[2023-10-25] MEDS: APIXABAN 2.5 MG TABLET (WCH) PO ×2 (09:29→21:27)
[2023-10-25] MEDS: Nystatin Powder 15gm Bottle 1 APPLIC TOPICAL ×2 (09:29→21:27)
[2023-10-25] MEDS: Isosorbide Mononitrate 60 MG Tablet PO (09:29)
[2023-10-25] MEDS: Lidocaine 5% Patch 1 PATCH TOPICAL (09:29)
[2023-10-25 09:30] VITALS: BP 119/74; PULSE 89
[2023-10-25] MEDS: Metoprolol(XL)Succ 25 MG Tablet PO (09:30)
[2023-10-25] MEDS: Sertraline 50 MG Tablet PO (09:30)
[2023-10-25] MEDS: Cholecalciferol (Vit D3) 125 MCG CAPSULE (5,000 UNITS) PO (09:30)
[2023-10-25] MEDS: Menthol/Lanolin/Calamine/Znox 113 GM Tube 1 APPLIC TOPICAL ×2 (09:35→21:26)
[2023-10-25] MEDS: Docusate Sodium 100 MG Capsule PO ×2 (09:35→21:27)
[2023-10-25] MEDS: Tuberculin,Purif.prot.deriv. 50 TU/ML Vial 0.1 ML ID (10:05)
[2023-10-25] MEDS: 0.9% Saline Lock 10 ML Syringe IV ×2 (10:10→21:23)
[2023-10-25] MEDS: Glucerna Shake 120 ML LIQUID PO ×2 (12:20→18:42)
[2023-10-25 16:00] VITALS: BP 115/78; PULSE 70; RESP 20; TEMP 36.9; O2SAT 94
[2023-10-25] MEDS: Atorvastatin Calcium 20 MG Tablet PO (21:27)
[2023-10-26 06:00] VITALS: BMI 29.2
[2023-10-26] MEDS: Spironolactone 25 MG Tablet PO (08:04)
[2023-10-26] MEDS: APIXABAN 2.5 MG TABLET (WCH) PO ×2 (08:04→20:40)
[2023-10-26] MEDS: Docusate Sodium 100 MG Capsule PO ×2 (08:04→20:40)
[2023-10-26 08:05] VITALS: PULSE 74
[2023-10-26] MEDS: Furosemide 40 MG Tablet 80 MG PO (08:05)
[2023-10-26] MEDS: Cholecalciferol (Vit D3) 125 MCG CAPSULE (5,000 UNITS) PO (08:05)
[2023-10-26] MEDS: Folic Acid 1 MG Tablet PO (08:05)
[2023-10-26] MEDS: Isosorbide Mononitrate 60 MG Tablet PO (08:05)
[2023-10-26] MEDS: Metoprolol(XL)Succ 25 MG Tablet PO (08:05)
[2023-10-26] MEDS: Sertraline 50 MG Tablet PO (08:05)
[2023-10-26] MEDS: Lidocaine 5% Patch 1 PATCH TOPICAL (08:06)
[2023-10-26] MEDS: Multivitamin (Healthy Eyes) Capsule 1 CAP PO ×2 (08:06→20:40)
[2023-10-26] MEDS: Glucerna Shake 120 ML LIQUID PO ×3 (08:07→17:07)
[2023-10-26] MEDS: Menthol/Lanolin/Calamine/Znox 113 GM Tube 1 APPLIC TOPICAL ×2 (08:15→20:39)
[2023-10-26] MEDS: Nystatin Powder 15gm Bottle 1 APPLIC TOPICAL ×2 (08:15→20:39)
[2023-10-26 15:20] VITALS: BP 140/93; PULSE 74; RESP 14; TEMP 36.6; O2SAT 94
[2023-10-26] MEDS: Acetaminophen 500 MG Tablet 1000 MG PO (18:26)
--- NOTE | 2023-10-26 18:44 | NURSING ---
Patient noted be anxious today, patient also refused dinner, asked for tylenol. requesting to make patient DNRCCA NO intubation. Educated on differences. Questioning possible hospice consult. Note left for BARRETT and DNR form in his folder. also inquiring about anxiety meds being added. Note left for Barrett
[2023-10-26] MEDS: Atorvastatin Calcium 20 MG Tablet PO (20:40)
[2023-10-26 21:00] VITALS: RESP 18
--- NOTE | 2023-10-27 04:40 | NURSING ---
Pt. appearig anxious while in bed.pt. SpO2 found in drop into 70s-80's around 0300. moving abdominal muscles as if breathing but no breath sounds heard- as soon as breath sounds were heard, SpO2 would jump back into mid 90s. Put on 2L. Once he fell asleep, O2 stayed in the low to Mid 90's. 2L nc left on while sleeping d/t SpO2 dropping to 91% while on RA. [ End ]
[2023-10-27 06:00] VITALS: BMI 29.2
[2023-10-27 07:00] VITALS: O2SAT 100
[2023-10-27 08:00] VITALS: O2SAT 100
--- NOTE | 2023-10-27 08:52 | NURSING ---
Upon assessment of patient, patient noted to be saturating 100%, removed oxygenation and patient still saturating at 100% on room air.
[2023-10-27] MEDS: Albuterol IH (6.7 GM) 1 PUFF INHALER 2 PUFF INHALATION (08:59)
[2023-10-27 09:04] VITALS: PULSE 83
[2023-10-27] MEDS: Isosorbide Mononitrate 60 MG Tablet PO (09:04)
[2023-10-27] MEDS: Glucerna Shake 120 ML LIQUID PO ×2 (09:04→14:44)
[2023-10-27] MEDS: Menthol/Lanolin/Calamine/Znox 113 GM Tube 1 APPLIC TOPICAL ×2 (09:04→21:14)
[2023-10-27] MEDS: Metoprolol(XL)Succ 25 MG Tablet PO (09:04)
[2023-10-27] MEDS: Nystatin Powder 15gm Bottle 1 APPLIC TOPICAL ×2 (09:04→21:15)
[2023-10-27] MEDS: Cholecalciferol (Vit D3) 125 MCG CAPSULE (5,000 UNITS) PO (09:05)
[2023-10-27] MEDS: Furosemide 40 MG Tablet 80 MG PO (09:05)
[2023-10-27] MEDS: Folic Acid 1 MG Tablet PO (09:05)
[2023-10-27] MEDS: Spironolactone 25 MG Tablet PO (09:05)
[2023-10-27] MEDS: APIXABAN 2.5 MG TABLET (WCH) PO (09:05)
[2023-10-27] MEDS: Docusate Sodium 100 MG Capsule PO (09:05)
[2023-10-27] MEDS: Multivitamin (Healthy Eyes) Capsule 1 CAP PO (09:06)
[2023-10-27] MEDS: Sertraline 50 MG Tablet PO (09:06)
[2023-10-27 10:00] VITALS: RESP 28
--- NOTE | 2023-10-27 11:06 | NURSING ---
Called Barrett in regards to patient exhibiting anxiety, PRN Q4H 2.5 mg of Xanax ordered, noted about Rhonchus LS noted in the Right lower lung Clear in other areas, CXR ordered d/t patient SOB and RLL LS, patient spo2 100% on room air. Orders all placed for said patient.
--- NOTE | 2023-10-27 11:20 | RAD_ITS ---
EXAM: XR CHEST, 2 VIEWS CLINICAL INDICATION: shortness of breath TECHNIQUE: Frontal and lateral views of the chest. COMPARISON: XR Chest dated 10/18/2023 FINDINGS: LUNGS AND PLEURAL SPACES: Persistent small left pleural effusion with compression atelectasis of the left lower lobe. HEART: Stable cardiomegaly. Coronary artery stents again seen. MEDIASTINUM: No mediastinal or hilar mass. BONES/JOINTS: No acute abnormality. TUBES, LINES AND DEVICES: Automatic implantable cardioverter defibrillator (AICD) in place. RAD/Chest PA and Lateral IMPRESSION: No interval change. Electronically Signed: Mika Topete MD at 15:02 EDT ,
[2023-10-27] MEDS: ALPRAZolam 0.25 MG Tablet PO ×2 (14:43→18:00)
[2023-10-27 16:00] VITALS: BP 135/85; PULSE 78; RESP 14; TEMP 36.6; O2SAT 99
--- NOTE | 2023-10-27 17:21 | NURSING ---
Addendum entered by Jag Dubois 10/27/23 18:54: Follow up call placed to [facility] referral line. No availability for a sooner evaluation. Patient remains scheduled tomorrow at 8AM. Family at bedside updated. Emotional support provided. Addendum entered by Jag Dubois 10/27/23 18:08: DNRCC signed by . Addendum entered by Jag Dubois 10/27/23 18:04: Call back from Norma at [facility]. Patient to be evaluated at 8am tomorrow 10/27. RN expresses needs for evaluation sooner as patient is progressing and declining quickly. Patient is symptomatic and appears to be transitioning. Norma to reach out to horse and wagon driver staff. Waiting call back. Original Note: Call placed to Dr. Hyde. Patient having an increase work of breathing. Patient is having periods of apnea followed by periods of tachypnea with use of his accessory muscles. VS: BP 153/85 P: 70 SpO2: 94% on RA. Patient was placed on 3L via NC for comfort and ease of breathing. Discoloration appearing to be mottling noted to patient's BL toes/feet. Patient noted with an increase in weakness this shift and a heavy 2 assist at this time. Patient is disoriented, drowsy, and lethargic. New order from Dr. Hyde for hospice consult and referral to be called into [facility]. Call placed to [facility] referral line. Spoke with Norma. Referral made. Call back number provided.
--- NOTE | 2023-10-27 18:43 | NURSING ---
Patient continue to decline, terminal secretions noted. Patient noted to seem painful, sob and anxious. Call placed to Dr. Hyde, PO order given to start Roxanol 10 mg Q1H PRN Pain, Lorazepam Intensol 1mg Q4H PRN anxiousness and SOB, Atropine 4 drops q4h for terminal secretions. Emotional support provided to family.
[2023-10-27] MEDS: Atropine Sulfate 1% 2 ml Bottle 4 DRP PO ×2 (19:25→22:39)
[2023-10-28] MEDS: LORazepam 2 MG/ML Bottle 1 MG SL ×2 (01:11→10:09)
[2023-10-28] MEDS: morphine (oral solution) 10MG/0.5ML Syringe 10 MG PO ×3 (01:56→09:33)
[2023-10-28 06:35] VITALS: RESP 16
[2023-10-28] MEDS: Atropine Sulfate 1% 2 ml Bottle 4 DRP PO (08:34)
[2023-10-28 09:44] VITALS: BP 135/85; PULSE 70; RESP 14; TEMP 37; O2SAT 99
--- NOTE | 2023-10-28 09:44 | PCM.PN.DRR ---
Documented by User: Mauricio Brandt 10/28/23 09:47 TCU RX Drug Regimen Review Subjective/Objective Subjective/Objective: Subjective: TCU admission note. 87 year old male with below past medical history hospitalized for weakness, NSTEMI, acute delirium, acute respiratory failure hypoxia, complicated by constpation, admitted to TCU with debility, here for rehabilitation, strengthening, prior to discharge home with . Objective: Allergies clarithromycin [From Biaxin] Allergy (Verified 10/18/23 18:39) PT UNSURE OF REACTION quinapril Allergy (Verified 10/18/23 18:39) Angioedema Ewhzlfw-GZF-JiT Reductase Inhibitor [Dcnatyz-Fhj-Jab Reductase Inhibitor] Allergy (Verified 10/18/23 18:39) Hives and myalgias valsartan [From Diovan] Allergy (Verified 10/18/23 18:39) PT UNSURE OF REACTION ezetimibe [From Zetia] Adverse Reaction (Verified 10/18/23 18:39) diarrhea simvastatin [From Vytorin] Adverse Reaction (Verified 10/18/23 18:39) PT UNSURE OF REACTION Current Medications Generic Name Dose Route Start Last Admin Trade Name Freq PRN Reason Stop Dose Admin Albuterol Sulfate 2 puff 10/24/23 14:05 10/27/23 08:59 Albuterol Ih (6.7 Gm) 1 Puff Inhaler INHALATION 2 puff Q4H PRN PRN Administration shortness of breath or wheezing Atropine Sulfate 4 drp 10/27/23 18:35 10/28/23 08:34 Atropine Sulfate 1% 2 Ml Bottle PO 4 drp Q3H PRN PRN Administration CONGESTION Lorazepam 1 mg 10/27/23 18:59 10/28/23 01:11 Lorazepam 2 Mg/Ml Bottle SL 1 mg Q4H PRN PRN Administration anxiety/restlessness/agitation Morphine Sulfate 10 mg 10/27/23 18:35 10/28/23 09:33 Morphine (Oral Solution) 10mg/0.5ml Syringe PO 10 mg Q1H PRN PRN Administration Pain Score 1-10 Sodium Chloride 10 - 40 ml 10/24/23 13:47 10/25/23 21:23 0.9% Saline Lock 10 Ml Syringe IV 10 ml UD PRN Administration SALINE FLUSH Tuberculin PPD 0.1 ml 11/01/23 10:00 Tuberculin,Purif.Prot.Deriv. 50 Tu/Ml Vial ID 11/01/23 10:01 X1 ONE Problem List (Updated 10/24/23 @ 21:[address] Nick Hyde MD) Atrial fibrillation (Acute) HFrEF (heart failure with reduced ejection fraction) (Acute) Depression (Acute) Coronary artery disease (Acute) Chronic kidney disease, stage 5 (Chronic) Constipation (Acute) Acute respiratory failure with hypoxia (Acute) NSTEMI (non-ST elevated myocardial infarction) (Acute) Acute delirium (Acute) Debility (Acute) Weakness (Acute) Hyperlipidemia (Chronic) Vital Signs Temp Pulse Resp BP Pulse Ox O2 Del Method O2 Flow Rate 98 F 78 16 135/85 H 99 Nasal Cannula 2 10/27/23 16:00 10/27/23 16:00 10/28/23 06:35 10/27/23 16:00 10/27/23 16:00 10/28/23 06:35 10/28/23 06:35 Oxygen Flow Rate (L/min) 2 Oxygen Delivery Method Nasal Cannula Weight: 89.947 kg Body Mass Index (BMI) 29.2 Sodium 137 mmol/L (136-145) 10/25/23 05:35 Potassium 4.0 mmol/L (3.5-5.1) 10/25/23 05:35 Chloride 104 mmol/L (98-107) 10/25/23 05:35 Carbon Dioxide 24.0 mmol/L (21.0-32.0) 10/25/23 05:35 Anion Gap 9 (5-15) 10/25/23 05:35 BUN 58 mg/dL (7-18) H 10/25/23 05:35 Creatinine 3.49 mg/dL (0.70-1.30) H 10/25/23 05:35 Est GFR (MDRD) Af Amer 21 mL/min (>60) L 10/25/23 05:35 Est GFR (MDRD) Non-Af 18 mL/min (>60) L 10/25/23 05:35 BUN/Creatinine Ratio 16.6 RATIO (10-20) 10/25/23 05:35 Glucose 139 mg/dL (74-106) H 10/25/23 05:35 Assessment/Plan: 1. Hospice comfort measures: albuterol sulfate 2 puffs Q4H PRN shortness of breath, morphine sulfate 10 mg PO Q1H PRN pain, atropine sulfate 4 drops PO Q3H PRN congestion, lorazepam 1 mg SL Q4H PRN anxiety restlessness/agitation. Please continue to monitor for comfort, agitation, pain, restlessness, congestion, and medication administrations. Assessment/Plan for indications treated with psychotropic medications: NA Medical chart and medication regimen reviewed. The following medication irregularities or issues were identified: NA Date Date of Note:: 10/28/23 Documented by User: Dr. Nick Hyde MD 10/28/23 11:59 TCU RX Drug Regimen Review Provider Comments Provider responsibility Provider Comments to Recommendations by Pharmacy: Agree
--- NOTE | 2023-10-28 09:55 | DS.PCM_ITS ---
Providers Date of Admission: 10/24/23 Primary Care Physician: Dr. Perry Olivas MD Reason For Visit: WEAKNESS AND FAILURE TO THRIVE Diagnosis Discharge Diagnosis (1) Debility: Status: Acute Code(s): R53.81 - Other malaise (2) Weakness: Status: Acute Code(s): R53.1 - Weakness (3) Acute delirium: Status: Acute Code(s): R41.0 - Disorientation, unspecified (4) NSTEMI (non-ST elevated myocardial infarction): Status: Acute Code(s): I21.4 - Non-ST elevation (NSTEMI) myocardial infarction (5) Acute respiratory failure with hypoxia: Status: Acute Code(s): J96.01 - Acute respiratory failure with hypoxia (6) Constipation: Status: Acute Code(s): K59.00 - Constipation, unspecified (7) Chronic kidney disease, stage 5: Status: Chronic Code(s): N18.5 - Chronic kidney disease, stage 5 (8) Coronary artery disease: Status: Acute Code(s): I25.10 - Atherosclerotic heart disease of [place] coronary artery without angina pectoris (9) Depression: Status: Acute Code(s): F32.A - Depression, unspecified (10) Hyperlipidemia: Status: Chronic Code(s): E78.5 - Hyperlipidemia, unspecified Qualifiers: Hyperlipidemia type: pure hypercholesterolemia Qualified Code(s): E78.00 - Pure hypercholesterolemia, unspecified; E78.00 - Pure hypercholesterolemia, unspecified; E78.00 - Pure hypercholesterolemia, unspecified; E78.0 - Pure hypercholesterolemia (11) HFrEF (heart failure with reduced ejection fraction): Status: Acute Code(s): I50.20 - Unspecified systolic (congestive) heart failure (12) Atrial fibrillation: Status: Acute Code(s): I48.91 - Unspecified atrial fibrillation Plan 87 year old male with below past medical history hospitalized for weakness, NSTEMI, acute delirium, acute respiratory failure hypoxia, complicated by constpation, admitted to TCU with debility, here for rehabilitation, strengthening, prior to discharge home with . * Debility - PT/OT. * Pain - Tylenol 1000mg q6 prn pain (1-10), Lidoderm patch 1 patch td daily. * Bowel - colace 100mg bid, Dulcolax 10mg pr daily prn. * Adult immunization - Administer pneumonia vaccine, covid vaccine, flu vaccine as appropriate. * DVT prophylaxis - on Eliquis. * Shortness of breath - Albuterol 2 puffs q4h prn. * Atrial fibrillation - Metoprolol succinate 25mg daily, Eliquis 2.5mg bid. * Hyperlipidemia - Atorvastatin 20mg qhs. * Vitamin D deficiency - D3 125mcg daily. * Folate deficiency - Folic acid 1mg daily. * HFrEF - Metoprolol succinate 25mg daily, Isosorbide 60mg daily, Spironolactone 25mg daily, Furosemide 80mg daily. * Coronary artery disease - Metoprolol succinate 25mg daily, Isosorbide 60mg daily, Eliquis 2.5mg bid, NTG 0.4mg sl q5m prn. * Macular degeneration - Healthy Eyes 1 capsule bid. * Tinea cruris - Nystatin powder topical bid. 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 Medications at Discharge Home Medications Handicap [facility] #1 ea 06/03/23 Hospital Course Operations None Procedures None Summary of Care Provided Minutes Spent on Discharge: 35 Hospital Course: 87 year old male with below past medical history hospitalized for weakness, NSTEMI, acute delirium, acute respiratory failure hypoxia, complicated by constp ation, admitted to TCU with debility, here for rehabilitation, strengthening, prior to discharge home with . Resident dying. Discharge to inpatient hospice facility 10/28/2023. Physical Exam Const alert General Appearance: cooperative HEENT normocephalic Eyes PERRL and EOMs intact bilaterally Neck supple, no JVD and no carotid bruits Resp normal respiratory effort, normal air movement and clear to auscultation bilaterally Cardio regular rate and regular rhythm GI normal to inspection, nondistended, normoactive bowel sounds, non-tender and non-distended Extremity normal capillary refill General Extremity: Negative for edema Skin no rashes or lesions noted General Skin Exam: no breakdown Psych affect normal Appearance: appropriate Weight / BMI Weight Weight: 89.947 kg Body Mass Index (BMI) 29.2 ABG / Lab / Microbiology Data 10/25/23 05:35 10/25/23 05:35 Radiography Diagnostic Testing: Radiology Impression Chest X-Ray 10/27/23 11:20 IMPRESSION: No interval change. Electronically Signed: Mika Topete MD at 15:02 EDT , D/C Instructions Discharge Diet: No restrictions Discharge Activity: No Restrictions Weight Bearing Status: Weight bearing as tolerated Additional Instructions: Discharge to inpatient hospice facility 10/28/2023. Meaningful Use Info Meaningful Use Meaningful Use Diagnoses (Choose all that apply): None applicable Ischemic Stroke Statin Dosing Therapy Reference: STATIN DOSE THERAPY REFERENCE: * Patients > 75 years receive moderate or high dose statin therapy. * Patients 75 years or YOUNGER should receive HIGH intensity statin dose unless contraindicated. You will be required to document reason for non-treatment if statin daily dose does not meet guidelines. HIGH DOSE STATIN THERAPY DAILY Atorvastatin > than or = to 40 mg Rosuvastatin > than or = to 20 mg Amlodipine + Atorvastatin > than or = to 2.5/40 mg Ezetimibe + Simvastatin 10/80 mg Simvastatin 80mg Discharge Plan Admission Admit Date/Time: 10/24/23 13:19 Primary Reason for Your Visit: Debility. Attending Provider: Nick Hyde Chi Primary Care Provider: Perry Olivas Instructions Additional Instructions / Restrictions: Discharge to inpatient hospice facility 10/28/2023. Discharge Orders/Prescriptions Prescriptions: Discontinued sertraline 50 mg tablet 50 mg PO DAILY Qty: 60 3RF rosuvastatin 10 mg tablet 10 mg PO DAILY clobetasol 0.05 % solution 1 applic topical QAM AND QPM PRN (Reason: LESION) cholecalciferol (vitamin D3) 125 mcg (5,000 unit) tablet 125 mcg PO DAILY PreserVision AREDS [id number] capsule 1 cap PO BID spironolactone 25 mg tablet 25 mg PO DAILY Qty: 60 3RF nitroglycerin 0.4 mg tablet, sublingual 0.4 mg SUBLINGUAL Q5-15M PRN (Reason: Cardiac/Chest Pain) Qty: 25 3RF furosemide [Lasix] 40 mg tablet 80 mg PO DAILY albuterol sulfate 90 mcg/actuation HFA aerosol inhaler 2 puff inhalation Q4-6H PRN (Reason: shortness of breath or wheezing) Qty: 8.5 0RF aspirin 81 MG tablet,chewable 81 mg PO DAILY lidocaine 5 % adhesive patch,medicated 1 patch topical DAILY Qty: 15 0RF Rx Instructions: leave on most painful area for up to 12 hrs nystatin 100,000 unit/gram powder 1 applic topical TID metoprolol succinate 25 mg tablet extended release 24 hr 25 mg PO DAILY Qty: 90 3RF Eliquis 2.5 mg tablet 2.5 mg PO BID Qty: 180 3RF isosorbide mononitrate 60 mg tablet extended release 24 hr 60 mg PO DAILY Qty: 90 4RF folic acid 1 mg tablet 1 mg PO QDAY Qty: 90 3RF No Action (DME) Handicap Plaquard Qty: 1 0RF Dose Instruction: As directed Rx Instructions: LIFETIME DURATION: will need renewal 06/03/2028 Referrals / Follow Up: Perry Olivas MD [Primary Care Provider] - Disposition Disposition (needs filled in before D/C Order can be placed): Hospice in Medical Facility
--- NOTE | 2023-10-28 10:18 | NURSING ---
Called report to [facility]. Patient to be transported to inpatient hospice services 1030.
--- NOTE | 2023-10-28 10:43 | CASEMGMT ---
Social Work 1020- SW notified by nursing staff that hospice has been consulted and transportation arranged for [facility] inpatient hospice. SW completed chart review. Patient discharging prior to completion of assessment due to medical decline. Hospice arranged by nursing staff on 10/27/2023. Patient discharged to inpatient hospice on 10/28/2023 with transportation arranged via [facility]. SWATHI Champion
--- NOTE | 2023-11-06 09:00 | MDS.RN ---
Information for the MDS was obtained from review of the clinical record, interview of resident, staff, and direct observation of resident?s care.
== END 2023-10-28 10:38 | disposition hospice, inpatient (51) | DRG 281 ==
PROVIDERS: Admitting Provider Family Medicine Geriatric Medicine; PCP Internal Medicine; Referring Provider Family Medicine Geriatric Medicine; Visit Provider Family Medicine Geriatric Medicine
DX: I21.4 Non-ST elevation (NSTEMI) myocardial infarction (principal); I13.2 Hypertensive heart and chronic kidney disease with heart failure and with stage 5 chronic kidney disease, or end stage renal disease; N18.5 Chronic kidney disease, stage 5; I50.22 Chronic systolic (congestive) heart failure; E11.22 Type 2 diabetes mellitus with diabetic chronic kidney disease; E53.8 Deficiency of other specified B group vitamins; E55.9 Vitamin D deficiency, unspecified; B35.6 Tinea cruris; I48.0 Paroxysmal atrial fibrillation; F32.A Depression, unspecified; I25.5 Ischemic cardiomyopathy; I25.10 Atherosclerotic heart disease of native coronary artery without angina pectoris; E78.00 Pure hypercholesterolemia, unspecified; H35.30 Unspecified macular degeneration; Z87.891 Personal history of nicotine dependence; Z95.5 Presence of coronary angioplasty implant and graft; Z79.82 Long term (current) use of aspirin; Z79.899 Other long term (current) drug therapy; Z79.01 Long term (current) use of anticoagulants; R41.0 Disorientation, unspecified
CPT/HCPCS: 36415; 71046; 80048; 85025; 92507; 92523; 92526; 92610; 97110; 97116; 97162; 97166; 97530; 97802; A4216